=== PATIENT | male | born 1935 | race Two or more races ===

== ENCOUNTER 2017-01-07 14:06 | Inpatient (IN) | payer MEDICARE, OTHER ==
[~2017-01-07] VITALS: Ht 175.3 cm; Wt 77.1 kg
[2017-01-07 14:20] VITALS: BP 164/70
[2017-01-07] MEDS ORDERED: Albuterol ud Inhalation HHN ONE (14:30)
[2017-01-07] MEDS ORDERED: Ipratropium 0.02% Inh Soln 2.5ml UD HHN ONE (14:30)
[2017-01-07 15:18] LABS: MEAN CORPUSCULAR HEMOGLOBIN 29.4 PG (27.0-31.0); MEAN CORPUSCULAR HGB CONC 33.3 G/DL (32.0-36.0); MEAN CORPUSCULAR VOLUME 88 FL (80-99); MEAN PLATELET VOLUME 7.1 FL (6.5-10.1); PLATELET COUNT 221 K/UL (150-450); RED BLOOD COUNT 3.29 M/UL (4.70-6.10); RED CELL DISTRIBUTION WIDTH 12.4 % (11.6-14.8); WHITE BLOOD COUNT 18.7 K/UL (4.8-10.8)
[2017-01-07] MEDS ORDERED: PROSCAR5 MG ORAL ×2 (15:20→17:21)
[2017-01-07] MEDS ORDERED: DOCUSATE SODIU250 MG ORAL (15:20)
[2017-01-07] MEDS ORDERED: JANUVIA50 MG ORAL (15:20)
[2017-01-07] MEDS ORDERED: LISINOPRIL5 MG ORAL (15:20)
[2017-01-07] MEDS ORDERED: CARVEDILOL3.125 MG ORAL (15:20)
[2017-01-07] MEDS ORDERED: GLUCOPHAGE850 MG ORAL (15:20)
[2017-01-07] MEDS ORDERED: NOVOLOG100 UNIT/3 SUBQ ×2 (15:20→17:17)
[2017-01-07] MEDS ORDERED: METFORMIN HCL850 M1 ORAL (15:20)
[2017-01-07] MEDS ORDERED: FERROUS SULFAT325 MG ORAL ×2 (15:20→17:13)
[2017-01-07] MEDS ORDERED: TRAZODONE HCL50 MG ORAL (15:20)
[2017-01-07] MEDS ORDERED: PROTONIX20 MG ORAL (15:20)
[2017-01-07] MEDS ORDERED: TAMSULOSIN HCL0.4 MG ORAL ×2 (15:20→17:15)
[2017-01-07] MEDS ORDERED: ZOLPIDEM TARTRAT5 MG ORAL ×2 (15:20→17:22)
[2017-01-07] MEDS ORDERED: ATORVASTATIN CA10 MG ORAL (15:20)
[2017-01-07 15:25] LABS: ALANINE AMINOTRANSFERASE 16 U/L (3-41); ALBUMIN/GLOBULIN RATIO 0.7 (1.0-2.7); ANION GAP 20 (5-15); ASPARTATE AMINO TRANSFERASE 37 U/L (5-40); CALCIUM 8.7 mg/dL (8.6-10.2); CARBON DIOXIDE 19 mEQ/L (20-30); CHLORIDE 96 mEQ/L (98-107); CREATININE 1.8 mg/dL (0.7-1.2); HEMOLYSIS 2; POTASSIUM 5.7 mEQ/L (3.4-4.9); SODIUM 135 mEQ/L (135-145); TOTAL PROTEIN 7.1 g/dL (6.6-8.7)
[2017-01-07] MEDS ORDERED: Azithromycin 500 MG in NS 275 ML IV ONE (15:30)
[2017-01-07] MEDS ORDERED: Cefepime HCl 1 GM in NS 55 ML IV ONE (15:30)
[2017-01-07 15:31] LABS: REFLEX LACTIC ACID YES OR NO YES
[2017-01-07 15:32] LABS: TROPONIN I 2.97 ng/mL (<=0.30)
[2017-01-07] MEDS ORDERED: Azithromycin Inj IV ONE (15:34)
[2017-01-07] MEDS ORDERED: Cefepime 1gm vial ONE (15:34)
[2017-01-07 15:35] LABS: CKMB 11.2 ng/mL (< 6.7)
[2017-01-07] MEDS ORDERED: Calcium Gluconate 1gm/10ml vial IVP ONE (15:45)
[2017-01-07] MEDS ORDERED: Sodium Polystyrene Sulfonate 15gm Powder ORAL ONE (15:45)
[2017-01-07] MEDS ORDERED: Heparin 25,000u/D5W 500ml 500 ML IV SCH ×3 (16:00→20:45)
[2017-01-07] MEDS ORDERED: Heparin 5000 units/ml inj IV ONE ×2 (16:00→20:44)
[2017-01-07 16:28] VITALS: BP 111/55
[2017-01-07 16:34] LABS: ANISOCYTOSIS 1+; BAND NEUTROPHILS % (MANUAL) 16 % (0-8); BASOPHILS % (MANUAL) 0 % (0-2); EOSINOPHILS % (MANUAL) 0 % (0-3); HYPOCHROMASIA 1+; LYMPHOCYTES % (MANUAL) 13 % (20-45); NEUTROPHILS % (MANUAL) 64 % (45-75); PLATELET ESTIMATE ADEQUATE; PLATELET MORPHOLOGY NORMAL; TOTAL CELLS COUNTED 100
[2017-01-07 16:46] LABS: INR 1.2 (0.9-1.1); PROTHROMBIN TIME 12.7 SEC (9.30-11.50)
--- NOTE | 2017-01-07 16:59 | Emergency Room Report ---
History of Present Illness General Chief Complaint: Dyspnea/Respdistress Source: Medical Record Present Illness HPI 81-year-old male to ED for evaluation. patient resides in [facility] and per nursing staff patient is having congestive symptoms and fever times one day. Patient febrile as per rectal temperature. Patient also has congestive symptoms. Patient has dementia and is unable to provide any additional history at this time. Upon arrival patient showing no signs of distress. No reported chest pain. No reported nausea or vomiting. No other aggravating or relieving factors. No other associated symptoms Allergies: Coded Allergies: No Known Allergies (Unverified , 01/07/17) Patient History Past Medical History: CAD Past Surgical History: none, pacemaker Pertinent Family History: none Social History: Denies: alcohol use, drug use, smoking Immunizations: UTD Reviewed Nursing Documentation: PMH: Agreed, PSxH: Agreed Nursing Documentation-PMH Hx Cardiac Problems: Yes - Atherosclerotic heart Ds. of qawalangin coronary Hx Hypertension: Yes - Anemia Hx Pacemaker: Yes Hx Diabetes: Yes Review of Systems All Other Systems: negative except mentioned in HPI Physical Exam Vital Signs Date Time Temp Pulse Resp B/P Pulse Ox O2 Delivery O2 Flow Rate FiO2 01/07/17 13:50 98.8 98 20 108/65 90 Room Air 01/07/17 14:41 21 Sp02 EP Interpretation: reviewed, normal General Appearance: non-toxic, other - dementia\ Head: normocephalic Eyes: bilateral eye PERRL, bilateral eye normal inspection ENT: normal ENT inspection Neck: normal inspection Respiratory: crackles Cardiovascular #1: regular rate, rhythm, no edema Gastrointestinal: normal bowel sounds, non tender, soft, non-distended, no guarding, no rebound Rectal: deferred Genitourinary: no CVA tenderness Musculoskeletal: normal inspection Neurologic: other - dementiia Psychiatric: other - dementia Skin: normal inspection Lymphatic: normal inspection Procedures Critical Care Time Critical Care Time i. I feel this is a highly complex case requiring extensive working including EKG/Rhythm strip, Xray/CT/US, Blood/urine lab work, repeat exams while in ED, and administration of strong opiates/narcotics for pain control, admission to hospital or close patient follow up. Total time: 30 min bedside evaluation and treatment excludes procedures (EKG). Reason for critical care: hyperkalemia, severe sepsis, elevated troponin Possible complications: hypotension, hypertension, [place], shock, arrhythmias, metabolic acidosis, end organ damage, respiratory failure. Interventions: Labs IV fluids EKG chest x-ray. Insulin/D50. calcium. Kayexelate. Aspirin. Abx. Heparin bolus/drip Course: She brought in for fever, congestive symptoms. Elevated WBC. Lactic 4.5. Potassium elevated. ARF. Troponin elevated. EKG shows peak T waves but no signs of ST elevation. Chest x-ray shows bilateral congestive/infiltrate. Given IV fluids. Given antibiotics. Given aspirin. Given heparin drip and bolus. Given calcium, insulin, D50 and Kayexalate. Consultations: nursing staff, EMS, family Performed by: Dr Toth Tolerated well condition = critical j. because of unstable vital signs this patient had a condition that could potentially threaten life or limb. I feel this is a critical patient who required my full attention while patient was considered critical. Total Critical Care Time excluding procedures was greater than 35 minutes Medical Decision Making Diagnostic Impression: Primary Impression: NSTEMI (non-ST elevated myocardial infarction) Additional Impressions: ARF (acute renal failure) Qualified Codes: N17.9 - Acute kidney failure, unspecified Hyperkalemia, diminished renal excretion Severe sepsis Pneumonia Qualified Codes: J18.9 - Pneumonia, unspecified organism ER Course Hospital Course 81-year-old male presents ED for evaluation of fever and congestion times one day Differential diagnoses include: PTX, CHF, pneumonia, sepsis Clinical course Patient placed on stretcher after initial history and physical I ordered labs, nebulizer treatment, EKG, chest x-ray, IV fluids labs reviewed- noted leukocytosis, lactic acid 4.5. Potassium 5.7. Cr elevated. Troponins 2.97 EKG- peaked Twaves in lateral leads. no ST elevations Chest x-ray- bilateral infiltrates Given calcium. Given insulin D50 and Kayexalate. Given 30 mL per KG fluid bolus. Given antibiotics. Given aspirin. Given heparin bolus and started on heparin drip Case discussed with Dr. Ojeda and he agreed to accept the patient to his service for further care and support. Dr Jain consulted for cardiology I. I feel this is a highly complex case requiring extensive working including EKG/Rhythm strip, Xray/CT/US, Blood/urine lab work, repeat exams while in ED, and administration of strong opiates/narcotics for pain control, admission to hospital or close patient follow up. Diagnosis - NSTEMI, ARF, hyperkalemia, severe sepsis, pneumonia admitted to [facility] in critical condition Labs Test 01/07/17 14:20 01/07/17 16:15 White Blood Count 18.7 K/UL (4.8-10.8) Red Blood Count 3.29 M/UL (4.70-6.10) Hemoglobin 9.7 G/DL (14.2-18.0) Hematocrit 29.0 % (42.0-52.0) Mean Corpuscular Volume 88 FL (80-99) Mean Corpuscular Hemoglobin 29.4 PG (27.0-31.0) Mean Corpuscular Hemoglobin Concent 33.3 G/DL (32.0-36.0) Red Cell Distribution Width 12.4 % (11.6-14.8) Platelet Count 221 K/UL (150-450) Mean Platelet Volume 7.1 FL (6.5-10.1) Neutrophils (%) (Auto) % (45.0-75.0) Lymphocytes (%) (Auto) % (20.0-45.0) Monocytes (%) (Auto) % (1.0-10.0) Eosinophils (%) (Auto) % (0.0-3.0) Basophils (%) (Auto) % (0.0-2.0) Differential Total Cells Counted 100 Neutrophils % (Manual) 64 % (45-75) Lymphocytes % (Manual) 13 % (20-45) Monocytes % (Manual) 7 % (1-10) Eosinophils % (Manual) 0 % (0-3) Basophils % (Manual) 0 % (0-2) Band Neutrophils 16 % (0-8) Platelet Estimate Adequate Platelet Morphology Normal Hypochromasia 1+ Anisocytosis 1+ Prothrombin Time 12.7 SEC (9.30-11.50) Prothromb Time International Ratio 1.2 (0.9-1.1) Activated Partial Thromboplast Time 27 SEC (23-33) Sodium Level 135 mEQ/L (135-145) Potassium Level 5.7 mEQ/L (3.4-4.9) Chloride Level 96 mEQ/L (98-107) Carbon Dioxide Level 19 mEQ/L (20-30) Anion Gap 20 (5-15) Blood Urea Nitrogen 39 mg/dL (7-23) Creatinine 1.8 mg/dL (0.7-1.2) Estimat Glomerular Filtration Rate mL/min (>60) Glucose Level 195 mg/dL (74-106) Lactic Acid Level 4.50 mmol/L (0.66-2.22) Calcium Level 8.7 mg/dL (8.6-10.2) Total Bilirubin 0.6 mg/dL (0.0-1.2) Aspartate Amino Transf (AST/SGOT) 37 U/L (5-40) Alanine Aminotransferase (ALT/SGPT) 16 U/L (3-41) Alkaline Phosphatase 48 U/L (40-129) Total Creatine Kinase 468 U/L (38-174) Creatine Kinase MB 11.2 ng/mL (< 6.7) Creatine Kinase MB Relative Index 2.3 Troponin I 2.97 ng/mL (<=0.30) Pro-B-Type Natriuretic Peptide 6171 pg/mL (0-450) Total Protein 7.1 g/dL (6.6-8.7) Albumin 3.1 g/dL (3.5-5.2) Globulin 4.0 g/dL Albumin/Globulin Ratio 0.7 (1.0-2.7) EKG Diagnostic Results Rate: normal Rhythm: NSR ST Segments: other - peaked twaves ASA given to the pt in ED: Yes Rhythm Strip Diag. Results EP Interpretation: yes Rhythm: NSR, no PVC's, no ectopy Chest X-Ray Diagnostic Results EP Interpretation: No Findings: no pneumothorax, no acute cardiopulmonary disease, other - bilateral congestion/infiltrates. pacemaker Number of Views: 1 Last Vital Signs Date Time Temp Pulse Resp B/P Pulse Ox O2 Delivery O2 Flow Rate FiO2 01/07/17 16:28 106 22 111/55 96 Room Air 01/07/17 14:55 21 01/07/17 14:20 101.1 Status: improved Disposition: ADMITTED INPATIENT Condition: Critical Referrals: REJI OJEDA (PCP) DIONICIO TOTH M.D. January 07, 2017 16:59
[2017-01-07 18:00] VITALS: BP 103/57
[2017-01-07 20:00] VITALS: BP 96/58
[2017-01-07] MEDS: DuoNeb 0.5-3(2.5)mg/3ml neb HHN SCH (20:29)
[2017-01-07] MEDS: Heparin 25,000u/D5W 500ml 500 ML IV SCH (20:44)
[2017-01-07] MEDS: Carvedilol 6.25mg Tab ORAL SCH (21:00)
[2017-01-07] MEDS ORDERED: Heparin 5000 units/ml inj SUBQ SCH (21:00)
[2017-01-07] MEDS: Tamsulosin 0.4mg cap ORAL SCH (21:39)
[2017-01-07] MEDS: NovoLOG Insulin Flexpen SUBQ SCH (21:42)
--- NOTE | 2017-01-07 21:49 | Consultation ---
DATE OF CONSULTATION: 01/07/2017 CARDIOLOGY CONSULTATION REQUESTING PHYSICIAN: Jona Guerra M.D. REASON FOR CONSULTATION: Elevated troponin level. HISTORY OF PRESENT ILLNESS: This is a 81-year-old male, resides at a longterm facility. He was noted to be febrile and have signs of congestion prompting transfer to this emergency room by paramedics. The patient is unable to give any additional data. He has underlying dementia. Records are reviewed. There were no reports of chest pain. He has been congested. He has not had any aggravating factors, but has had fevers. In the emergency room, the patient was noted to have an elevated troponin level and signs of acute pulmonary infection. He was started on intravenous anticoagulants, oral anti-platelet and antimicrobial. PAST MEDICAL HISTORY: 1. Permanent pacemaker. 2. Prostatic hypertrophy. 3. Coronary artery disease. 4. Hypertensive heart disease. 5. Cerebrovascular disease with dementia. 6. Peptic ulcer disease. 7. Insulin-requiring diabetes mellitus. 8. Chronic kidney disease. 9. Anemia of chronic kidney disease. ALLERGIES: None known. MEDICATIONS: Prior to admission, reviewed and reconciled. SOCIAL HISTORY: No record of smoking, alcohol, or substance abuse. FAMILY HISTORY: Unknown. REVIEW OF SYSTEMS: Not obtainable from patient. Pertinent data from records as outlined above. PHYSICAL EXAMINATION: GENERAL: He is awake and alert. He is in mild respiratory distress. He is unable to give any reliable information. VITAL SIGNS: Blood pressure 108/65, pulse 98, respirations 20, and afebrile. HEENT: Temporal wasting. Pale conjunctivae. Oropharynx is clear. Mucous membranes dry. NECK: Supple. Accessory muscle use noted. LUNGS: With coarse breath sounds and rhonchi. Rales at the bases. CARDIAC: Regular rhythm and rate. Normal S1, paradoxically split S2. A 1/6 systolic murmur at apex. ABDOMEN: Soft and nontender. No guarding or rebound. EXTREMITIES: No clubbing, cyanosis, or edema. NEUROLOGIC: Reveals symmetric strength. Moderate to severe cognitive impairment. LABORATORY AND DIAGNOSTIC DATA: Chest x-ray reveals bilateral basilar infiltrates. EKG reveals sinus rhythm with T-wave peaking in the lateral leads. Lactic acid level was elevated to 4.5, repeat is 6.5. Troponin is 2.97. Sodium 135, potassium 5.7, bicarbonate 19, BUN 39, creatinine 1.8, and glucose 195. Pro-natriuretic peptide is 6171. Albumin is 3.1. White count 18.7 and hemoglobin 9.7. IMPRESSION: 1. Healthcare-acquired pneumonia. 2. Acute myocardial infarction. 3. Hyperkalemia. 4. Acute respiratory insufficiency. 5. Acute renal failure. 6. Anemia of chronic kidney disease. 7. Insulin-requiring diabetes with hyperglycemia. 8. Acute diastolic congestive heart failure. 9. Mild protein-calorie malnutrition. 10. Lactic acidosis. 11. Sepsis. 12. Leukocytosis. 13. Permanent pacemaker with underlying conduction system disease of the heart. PLAN: 1. Cardiac monitoring. 2. Saline hydration. 3. Following dose of Kayexalate. 4. Inhaled bronchodilators. 5. Broad-spectrum antibiotics. 6. Oral aspirin. 7. Check lipid panel. 8. Continue anti-lipid therapy. 9. Advance beta-blockade. 10. DVT prophylaxis. 11. Dosing of heparin. 12. Echocardiogram. 13. Pacemaker interrogation to follow. Stanislav Jain M.D. DR: SANDEEP JOB#: [id number] CC: DANIELA
[2017-01-07] MEDS ORDERED: Vancomycin 1250mg in D5W 275ml IVPB ONE (22:00)
[2017-01-08] VITALS: BP 117/61
[2017-01-08] MEDS: DuoNeb 0.5-3(2.5)mg/3ml neb HHN SCH ×4 (01:23→19:49)
[2017-01-08 03:46] LABS: BASOPHILS % (AUTO) 0.3 % (0.0-2.0); EOSINOPHILS % (AUTO) 0.1 % (0.0-3.0); LYMPHOCYTES % (AUTO) 15.9 % (20.0-45.0); MEAN CORPUSCULAR HEMOGLOBIN 30.5 PG (27.0-31.0); MEAN CORPUSCULAR HGB CONC 34.7 G/DL (32.0-36.0); MEAN CORPUSCULAR VOLUME 88 FL (80-99); MONOCYTES % (AUTO) 4.1 % (1.0-10.0); NEUTROPHILS % (AUTO) 79.7 % (45.0-75.0); PLATELET COUNT 177 K/UL (150-450); RED BLOOD COUNT 2.76 M/UL (4.70-6.10); RED CELL DISTRIBUTION WIDTH 12.5 % (11.6-14.8); WHITE BLOOD COUNT 13.6 K/UL (4.8-10.8)
[2017-01-08 04:00] VITALS: BP 119/69
[2017-01-08 05:12] LABS: ALANINE AMINOTRANSFERASE 17 U/L (3-41); ALBUMIN/GLOBULIN RATIO 0.7 (1.0-2.7); ANION GAP 16 (5-15); ASPARTATE AMINO TRANSFERASE 41 U/L (5-40); CALCIUM 8.3 mg/dL (8.6-10.2); CARBON DIOXIDE 21 mEQ/L (20-30); CHLORIDE 99 mEQ/L (98-107); CHOLESTEROL 56 mg/dL (< 200); CHOLESTEROL/HDL RATIO 1.4 (3.3-4.4); CREATININE 1.7 mg/dL (0.7-1.2); HEMOLYSIS 4; LDL CHOLESTEROL (CALC.) 11 mg/dL (60-99); POTASSIUM 4.4 mEQ/L (3.4-4.9); SODIUM 136 mEQ/L (135-145); TOTAL PROTEIN 6.1 g/dL (6.6-8.7)
[2017-01-08 05:17] LABS: THYROID STIMULATING HORMONE 0.795 uIU/mL (0.300-4.500)
[2017-01-08 05:22] LABS: TROPONIN I 3.26 ng/mL (<=0.30)
[2017-01-08] MEDS ORDERED: NovoLOG Insulin Flexpen SUBQ SCH (06:30)
[2017-01-08] MEDS: NovoLOG Insulin Flexpen SUBQ SCH ×4 (06:32→21:56)
[2017-01-08 08:00] VITALS: BP 114/71
--- NOTE | 2017-01-08 08:39 | Diagnostic Imaging Report ---
Indication: SOB Technique: One view of the chest Comparison: none Findings: There is bilateral interstitial and airspace disease, left greater than right, which is diffuse. The pleural spaces are clear. The heart size is upper limits normal. There is a left chest bifocal pacemaker Impression: Bilateral interstitial and alveolar infiltrates versus edema. Correlate with clinical findings Other findings as noted
[2017-01-08] MEDS: Aspirin Baby 81mg ORAL SCH (09:38)
[2017-01-08] MEDS: Carvedilol 6.25mg Tab ORAL SCH (09:39)
[2017-01-08 12:04] VITALS: BP 108/50
[2017-01-08 12:47] LABS: TROPONIN I 1.51 ng/mL (<=0.30)
--- NOTE | 2017-01-08 12:48 | Consultation ---
DATE OF CONSULTATION: 01/08/2017 PULMONARY CONSULTATION CONSULTING PHYSICIAN: Jona Guerra M.D. REASON FOR CONSULTATION: Pneumonia. HISTORY OF PRESENT ILLNESS: This is a 81-year-old male, resides at a residential facility. The patient is noted to be febrile, worsening congestion. The patient was brought into the emergency room and had a workup done, which also revealed an elevated troponin. Care discussed with the ER physician as well as with Dr. Carlos. The patient now admitted to [facility]. The patient seen and evaluated by Cardiology. The patient without significant distress. The patient has been congested, overall not improving. The patient was transferred for admission evaluation. The patient also started on cardiac management. The patient is a poor historian overall, events are fairly acute in nature and therefore the patient was transferred for evaluation and intervention. PAST MEDICAL HISTORY: Notable for pacemaker, BPH, CAD, hypertension, hypertensive heart disease, peptic ulcer disease, insulin-dependent diabetes, chronic kidney disease, anemia, and possible underlying history of COPD. MEDICATIONS: Reviewed. ALLERGIES: Reviewed. SOCIAL HISTORY: Nonsmoker and nondrinker. The patient is a shelter patient. FAMILY HISTORY: Noncontributory. Not available. REVIEW OF SYSTEMS: Difficult to obtain. PHYSICAL EXAMINATION: GENERAL: The patient is awake, male, mild distress, some congestion, not a reliable historian. VITAL SIGNS: Saturation 99% on room air, respirations 20, temperature 98.1 degrees, and blood pressure 119/69. HEENT: Temporal wasting. Oropharynx is moist. Gag present. NECK: Supple. Carotids 2+. LUNGS: Coarse breath sounds and rhonchi. No wheezes. CARDIAC: S1 and S2. Regular rate and rhythm. Soft at the parasternal border. No rubs or gallops. ABDOMEN: Soft and nontender. No distention. EXTREMITIES: No cyanosis. No clubbing. No edema. NEUROLOGIC: Grossly nonfocal. LABORATORY AND DIAGNOSTIC DATA: White count 18.7, currently 13.6, hemoglobin 8.4, and hematocrit 24.2. The remainder of the labs reviewed in detail. Chemistries, BUN 43, creatinine 1.7. Troponin initially 2.97, now 3.26. BNP 27723. Albumin is 2.6. IMPRESSION: 1. Acute myocardial infarction. 2. Elevated troponin. 3. Elevated natriuretic peptide. 4. Severe protein-calorie malnutrition. 5. Chronic renal failure. 6. Anemia. 7. Leukocytosis. 8. Pneumonia. 9. Respiratory congestion. 10. Chronic encephalopathy. RECOMMENDATIONS: 1. Cardiology evaluation noted. 2. IV antibiotics empirically for shelter related infection. 3. Respiratory care. 4. Nebulized therapy. 5. Oxygen therapy. 6. Monitor renal function. 7. Monitor labs. 8. Consider transfusion and assess clinically for further changes. 9. Consider Epogen. 10. Monitor and recommend further pending evaluation. Jona Guerra M.D. DR: Archana JOB#: [id number] CC:
[2017-01-08] MEDS: Cefepime HCl 1 GM in D5W 55 ML IVPB SCH (15:18)
[2017-01-08] MEDS: Heparin 25,000u/D5W 500ml 500 ML IV SCH (15:23)
[2017-01-08 16:24] VITALS: BP 140/73
--- NOTE | 2017-01-08 16:49 | Progress Note ---
DATE: 01/08/2017 SUBJECTIVE: The patient is without complaints. He wants to get out of bed and move. He denies chest pain or shortness of breath. OBJECTIVE: VITAL SIGNS: Blood pressure 114/71, pulse 106, respirations 18, no fever. RESPIRATORY: A few rales. NECK: Jugular venous pressure elevated. HEART: Regular rhythm and rate. Normal S1 and S2. There is a 1/6 systolic apical murmur. ABDOMEN: Soft. Extremities with trace edema. LABORATORY DATA: White count 13.6 and hemoglobin 8.4. Potassium 4.4, BUN 43, creatinine 1.7, troponin 3.26, pro-brain natriuretic peptide 12,000, and albumin 2.6. Cholesterol total is only 56. TSH 0.79. IMPRESSION: 1. Acute myocardial infarction. 2. Acute on chronic diastolic congestive heart failure. 3. Lactic acidosis. 4. Permanent pacemaker. 5. Healthcare-acquired pneumonia. 6. Acute renal failure. 7. Hyperkalemia, resolved. PLAN: 1. Advance beta-ann. 2. Discontinue IV fluids. 3. Continue anti-platelet therapy. 4. Review echocardiogram. 5. Broad-spectrum antibiotic. Remains critical and guarded. Stanislav Jain M.D. DR: SANDEEP JOB#: [id number] CC:
--- NOTE | 2017-01-08 19:58 | Consultation ---
DATE OF CONSULTATION: 01/08/2017 PRIMARY ATTENDING PHYSICIAN: Jona Guerra M.D. REASON FOR CONSULT: Sepsis and pneumonia. HISTORY OF PRESENT ILLNESS: The patient is a 81-year-old man who is a long term resident admitted yesterday because of fever and congestion. The patient had a fever of 101.1 in the hospital and leukocytosis of 18,700. He seems to be confused and he is a poor historian. He had elevated troponin up to 3.26, elevated BNP, lactic acidosis, and has renal failure. PAST MEDICAL HISTORY: He has diabetes mellitus, on insulin; anemia; history of pacemaker placement; BPH; coronary artery disease; and dementia. SOCIAL HISTORY: senior care resident. No history of alcohol or drug abuse or smoking. ALLERGIES: No known drug allergies. MEDICATIONS: Vancomycin, carvedilol, cefepime, aspirin, Proscar, Protonix, atorvastatin, Flomax, insulin, heparin, and DuoNeb inhaler. No other history is obtainable. PHYSICAL EXAMINATION: VITAL SIGNS: Pulse 105, blood pressure 108/50, and temperature 99.5 degrees. T-max 101.1 degrees. GENERAL APPEARANCE: No acute distress. HEAD AND NECK: Pale conjunctivae. No oral lesions. The patient has no teeth. HEART: Regular. There is a pacemaker on the left side of the chest. ABDOMEN: Soft and nontender. EXTREMITIES: No edema. LABORATORY AND DIAGNOSTIC DATA: WBC today is 13.6, hemoglobin 8.4, hematocrit 24.2, and platelets 177,000. Sodium 136, potassium 4.4, chloride 99, bicarbonate 21, BUN 43, and creatinine 1.7. Lactic acid is 6.8. Troponin peak was 3.26. BNP was 12,291. Albumin is 2.6. Chest x-ray showed bilateral interstitial and alveolar infiltrates versus edema. IMPRESSION: 1. Sepsis/ Systemic inflammatory response syndrome with fever and leukocytosis. 2. source of infection may be pneumonia. 3. The patient suffers from non-ST myocardial infarction. 4. Anemia. 5. Acute renal failure. 6. Dementia. 7. Diabetes mellitus, on insulin. RECOMMENDATION: We will continue current medication of vancomycin and cefepime with followup chest x-ray in one to two days. I thank Dr. Guerra for involving me in the care of this patient. Van Warren M.D. DR: RONNY JOB#: [id number] CC: DANIELA
[2017-01-08 20:00] VITALS: BP 144/76
[2017-01-08] MEDS: Carvedilol 12.5mg tab ORAL SCH (21:45)
[2017-01-08] MEDS: Tamsulosin 0.4mg cap ORAL SCH (21:46)
[2017-01-08] MEDS: Vancomycin 1gm in D5W 275ml IVPB SCH (21:54)
--- NOTE | 2017-01-08 23:18 | History and Physical Report ---
DATE OF ADMISSION: 01/07/2017 CHIEF COMPLAINT: Sepsis, acute myocardial infarction, atrial fibrillation with rapid ventricular response, and pneumonia. HISTORY OF PRESENT ILLNESS: Mr. Goins is a 81-year-old male, who resides in a long term facility, who was transferred with complaints of shortness of breath. On evaluation at the emergency room, the patient was noted to have elevated troponin. He also had evidence of pneumonia. He since has developed atrial fibrillation with RVR. Currently, he is without complaints. He remains in atrial fibrillation, but his rate is better controlled. PAST MEDICAL HISTORY: Significant for hypertension, hypertensive heart disease, diabetes, history of ischemic cardiomyopathy, dementia, history of renal insufficiency, and history BPH. CURRENT MEDICATIONS: Reconciled and reviewed. ALLERGIES: None. FAMILY HISTORY: None. SOCIAL HISTORY: Negative for tobacco, ethanol, or drugs. REVIEW OF SYSTEMS: General: No fever or chills. HEENT: No headaches or visual changes. Cardiopulmonary: Positive for chest pain. Positive shortness of breath. Gastrointestinal: No nausea or vomiting. Genitourinary: No urgency or frequency. Musculoskeletal: No joint pain or swelling. Neurologic: No evidence of seizures. PHYSICAL EXAMINATION: VITAL SIGNS: Temperature 99.5 degrees, blood pressure 108/50, pulse 100, and respirations 18. GENERAL: The patient is well-developed male, in apparent distress. He is awake and alert. He answers simple questions appropriately. NECK: Supple. HEART: Regular rate and rhythm. LUNGS: Scattered rhonchi. ABDOMEN: Soft, nontender, and nondistended. EXTREMITIES: Without clubbing, cyanosis, or edema. LABORATORY AND DIAGNOSTIC DATA: Laboratories white count 18,000, hemoglobin 9.7, and hematocrit 29. Troponin 3.26. Creatinine was 1.7. Sodium 136, potassium 4.4. Lactic acid was 6.8, natriuretic peptide level is 1200. Chest x-ray showed bilateral infiltrates. ASSESSMENT: This is a elderly male with complaints of: 1. Shortness of breath secondary to pneumonia. 2. Acute myocardial infarction, problems with atrial fibrillation with rapid ventricular response. 3. Pneumonia. 4. Sepsis. 5. Lactic acidosis. 6. Chronic renal insufficiency. 7. Dementia. 8. Diabetes. PLAN: Intravenous antibiotics, antiplatelet therapy, heparin drip, Cardiology, Pulmonary, and Infectious Disease consultations. We will monitor the patient's chest x-ray. Followup cultures. Check an echo. The patient's status is currently guarded. Rajeev Carlos M.D. DR: Mandie JOB#: [id number] CC:
[2017-01-09] VITALS (7 sets, daily range): BP systolic 90–136; BP diastolic 46–82
[2017-01-09] MEDS: DuoNeb 0.5-3(2.5)mg/3ml neb HHN SCH ×4 (01:40→19:16)
[2017-01-09 05:32] LABS: MEAN CORPUSCULAR HEMOGLOBIN 29.9 PG (27.0-31.0); MEAN CORPUSCULAR HGB CONC 33.8 G/DL (32.0-36.0); MEAN CORPUSCULAR VOLUME 89 FL (80-99); MEAN PLATELET VOLUME 7.3 FL (6.5-10.1); PLATELET COUNT 153 K/UL (150-450); RED BLOOD COUNT 2.59 M/UL (4.70-6.10); RED CELL DISTRIBUTION WIDTH 12.9 % (11.6-14.8); WHITE BLOOD COUNT 12.1 K/UL (4.8-10.8)
[2017-01-09 06:07] LABS: ALANINE AMINOTRANSFERASE 16 U/L (3-41); ALBUMIN/GLOBULIN RATIO 0.7 (1.0-2.7); ANION GAP 18 (5-15); ASPARTATE AMINO TRANSFERASE 23 U/L (5-40); CALCIUM 7.8 mg/dL (8.6-10.2); CARBON DIOXIDE 21 mEQ/L (20-30); CHLORIDE 101 mEQ/L (98-107); CREATININE 1.6 mg/dL (0.7-1.2); HEMOLYSIS 0; POTASSIUM 3.7 mEQ/L (3.4-4.9); SODIUM 140 mEQ/L (135-145); TOTAL PROTEIN 6.2 g/dL (6.6-8.7)
[2017-01-09] MEDS: NovoLOG Insulin Flexpen SUBQ SCH ×4 (06:31→20:50)
[2017-01-09] MEDS ORDERED: Heparin 5000 units/ml inj IV ONE (06:45)
[2017-01-09] MEDS: Heparin 25,000u/D5W 500ml 500 ML IV SCH ×2 (07:40→12:21)
--- NOTE | 2017-01-09 08:26 | Pulmonology Progress Note ---
Assessment/Plan Assessment/Plan IMPRESSION: 1. Acute myocardial infarction. 2. Elevated troponin. 3. Elevated natriuretic peptide. 4. Severe protein-calorie malnutrition. 5. Chronic renal failure. 6. Anemia. 7. Leukocytosis. 8. Pneumonia. 9. Respiratory congestion. 10. Chronic encephalopathy. PLAN care noted and reviewed IV antibiotics ID noted monitor troponins supportive care monitor labs nutrition impression, plan, and exam edited and reviewed in detail care discussed with RN Subjective ROS Limited/Unobtainable: Yes Allergies: Coded Allergies: No Known Allergies (Unverified , 01/07/17) Subjective care noted some congestion troponin better Objective Last 24 Hour Vital Signs Date Time Temp Pulse Resp B/P Pulse Ox O2 Delivery O2 Flow Rate FiO2 01/09/17 07:42 Nasal Cannula 01/09/17 07:42 Nasal Cannula 3.0 32 01/09/17 07:42 98 18 96 Nasal Cannula 3.0 32 01/09/17 07:42 96 Nasal Cannula 3.0 32 01/09/17 04:00 98.5 111 18 114/77 97 Nasal Cannula 2.0 01/09/17 04:00 99 01/09/17 01:48 98 20 98 Nasal Cannula 2.0 28 01/09/17 01:38 94 20 97 Nasal Cannula 3.0 32 01/09/17 00:00 91 01/09/17 00:00 98.9 86 18 103/56 97 Nasal Cannula 2.0 01/08/17 22:45 100.2 01/08/17 21:45 108 144/76 01/08/17 20:27 108 01/08/17 20:10 Nasal Cannula 3.0 32 01/08/17 20:10 117 22 94 Nasal Cannula 3.0 32 01/08/17 20:09 94 Nasal Cannula 3.0 32 01/08/17 20:00 101.8 114 20 144/76 98 Nasal Cannula 2.0 01/08/17 19:52 111 22 88 Room Air 21 01/08/17 16:24 98.2 110 18 140/73 94 Room Air 01/08/17 16:00 109 01/08/17 13:33 95 Nasal Cannula 2.0 01/08/17 13:33 Nasal Cannula 2.0 01/08/17 13:31 105 20 95 Nasal Cannula 2.0 01/08/17 13:20 109 20 92 Room Air 01/08/17 12:04 99.5 100 18 108/50 95 Room Air 01/08/17 12:00 110 01/08/17 09:39 114/71 Intake and Output 01/08/17 01/09/17 19:00 07:00 Intake Total 883.12 ml 703.5978 ml Balance 883.12 ml 703.5978 ml Intake Oral 550 ml IV Total 333.12 ml 703.5978 ml # Voids 5 1 # Bowel Movements 4 Objective GENERAL: The patient is awake, male, some persistent congestion, HEENT: Temporal wasting. Oropharynx is moist. Gag present. NECK: Supple. Carotids 2+. LUNGS: Coarse breath sounds and rhonchi. No wheezes. minimal change CARDIAC: S1 and S2. Regular rate and rhythm. Soft at the parasternal border. No rubs or gallops. ABDOMEN: Soft and nontender. No distention. EXTREMITIES: No cyanosis. No clubbing. No edema. NEUROLOGIC: Grossly nonfocal. Microbiology Date/Time Source Procedure Growth Status 01/07/17 14:55 Blood Blood Culture - Preliminary NO GROWTH AFTER 24 HOURS Resulted 01/07/17 14:20 Blood Blood Culture - Preliminary NO GROWTH AFTER 24 HOURS Resulted Laboratory Tests 01/08/17 11:30: Troponin I 1.51*H 01/09/17 04:00: White Blood Count 12.1H, Red Blood Count 2.59L, Hemoglobin 7.7L, Hematocrit 22.9L, Mean Corpuscular Volume 89, Mean Corpuscular Hemoglobin 29.9, Mean Corpuscular Hemoglobin Concent 33.8, Red Cell Distribution Width 12.9, Platelet Count 153, Mean Platelet Volume 7.3, Neutrophils (%) (Auto) , Lymphocytes (%) ( Auto) , Monocytes (%) (Auto) , Eosinophils (%) (Auto) , Basophils (%) (Auto) , Neutrophils % (Manual) [Pending], Lymphocytes % (Manual) [Pending], Platelet Estimate [Pending], Platelet Morphology [Pending], Activated Partial Thromboplast Time 62H, Sodium Level 140, Potassium Level 3.7, Chloride Level 101 , Carbon Dioxide Level 21, Anion Gap 18H, Blood Urea Nitrogen 41H, Creatinine 1.6H, Estimat Glomerular Filtration Rate , Glucose Level 159H, Lactic Acid Level 1.10, Calcium Level 7.8L, Total Bilirubin 0.5, Aspartate Amino Transf (AST /SGOT) 23, Alanine Aminotransferase (ALT/SGPT) 16, Alkaline Phosphatase 68, Total Protein 6.2L, Albumin 2.7L, Globulin 3.5, Albumin/Globulin Ratio 0.7L Current Medications Medications (Trade) Dose Ordered Sig/Subhash Route PRN Reason Start Time Stop Time Status Last Admin Dose Admin Acetaminophen 650 mg 650 mg Q6H PRN ORAL Mild Pain/Temp > 100.5 01/08/17 20:45 02/07/17 20:44 01/08/17 21:46 Albuterol/ Ipratropium 3 ml 3 ml Q6HRT HHN 01/07/17 19:00 01/12/17 18:59 01/09/17 01:40 Aspirin (ASA) 81 mg DAILY ORAL 01/08/17 09:00 02/07/17 08:59 01/08/17 09:38 Atorvastatin Calcium (Lipitor) 10 mg BEDTIME ORAL 01/07/17 21:00 02/06/17 20:59 01/08/17 21:46 Carvedilol (Coreg) 12.5 mg EVERY 12 HOURS ORAL 01/08/17 21:00 02/07/17 20:59 01/08/17 21:45 Cefepime HCl/ Dextrose (Maxipime/D5W) 55 ml @ 110 mls/hr Q24H IVPB 01/08/17 15:30 01/15/17 15:29 01/08/17 15:18 Dextrose (Dextrose 50%) STAT PRN IV Hypoglycemia 01/07/17 18:15 02/06/17 18:14 Finasteride (Proscar) 5 mg DAILY ORAL 01/08/17 09:00 02/07/17 08:59 01/08/17 09:00 Heparin Sodium/ Dextrose (Heparin) 500 ml @ 30.844 mls/ hr adjust per protocol IV 01/09/17 06:42 02/06/17 20:44 01/09/17 07:40 Insulin Aspart (NovoLOG) BEFORE MEALS AND HS SUBQ 01/07/17 21:00 02/06/17 20:59 01/09/17 06:31 Pantoprazole (Protonix) 40 mg DAILY ORAL 01/08/17 09:00 02/07/17 08:59 01/08/17 10:45 Tamsulosin HCl (Flomax) 0.4 mg BEDTIME ORAL 01/07/17 21:00 02/06/17 20:59 01/08/17 21:46 Vancomycin HCl 1 ea 1 ea DAILY PRN MISC Per rx protocol 01/07/17 18:30 02/06/17 18:29 Vancomycin HCl/ Dextrose (Vancomycin/D5W) 275 ml @ 183.708 mls/hr Q24H IVPB 01/08/17 22:00 01/13/17 21:59 01/08/17 21:54 REJI OJEDA January 09, 2017 08:26
[2017-01-09] MEDS: Aspirin Baby 81mg ORAL SCH (08:30)
[2017-01-09] MEDS: Carvedilol 12.5mg tab ORAL SCH ×2 (08:36→20:46)
[2017-01-09 08:54] LABS: MEAN CORPUSCULAR HGB CONC 34.1 G/DL (32.0-36.0); MEAN CORPUSCULAR VOLUME 88 FL (80-99); MEAN PLATELET VOLUME 7.2 FL (6.5-10.1); PLATELET COUNT 145 K/UL (150-450); RED BLOOD COUNT 2.58 M/UL (4.70-6.10); RED CELL DISTRIBUTION WIDTH 13.2 % (11.6-14.8); WHITE BLOOD COUNT 12.9 K/UL (4.8-10.8)
[2017-01-09 11:50] LABS: BAND NEUTROPHILS % (MANUAL) 0 % (0-8); BASOPHILS % (MANUAL) 0 % (0-2); EOSINOPHILS % (MANUAL) 0 % (0-3); HYPOCHROMASIA 1+; LYMPHOCYTES % (MANUAL) 9 % (20-45); NEUTROPHILS % (MANUAL) 89 % (45-75); PLATELET ESTIMATE ADEQUATE; PLATELET MORPHOLOGY NORMAL; TOTAL CELLS COUNTED 100
[2017-01-09 12:08] LABS: BAND NEUTROPHILS % (MANUAL) 1 % (0-8); LYMPHOCYTES % (MANUAL) 12 % (20-45); NEUTROPHILS % (MANUAL) 82 % (45-75); TOTAL CELLS COUNTED 100
[2017-01-09 12:09] LABS: BASOPHILS % (MANUAL) 0 % (0-2); EOSINOPHILS % (MANUAL) 0 % (0-3); HYPOCHROMASIA 1+; PLATELET ESTIMATE DECREASED; PLATELET MORPHOLOGY NORMAL
[2017-01-09 12:39] LABS: TROPONIN I 1.27 ng/mL (<=0.30)
--- NOTE | 2017-01-09 13:03 | Infectious Diseases Prog Note ---
Assessment/Plan Assessment/Plan antibiotics : vancomycin iv, cefepime A 1. pneumonia 2. renal failure 3. dementia 4. fever improving 5. leucocytosis P 1. continue iv cefepime 2. d/c iv vancomycin 3. will follow up cultures Subjective ROS Limited/Unobtainable: Yes Allergies: Coded Allergies: No Known Allergies (Unverified , 01/07/17) Objective Vital Signs Last 24 Hour Vital Signs Date Time Temp Pulse Resp B/P Pulse Ox O2 Delivery O2 Flow Rate FiO2 01/09/17 12:00 98.9 88 18 90/47 93 Nasal Cannula 2.0 01/09/17 08:36 96 136/46 01/09/17 08:00 99.7 96 20 136/46 93 Nasal Cannula 2.0 01/09/17 08:00 103 01/09/17 07:42 Nasal Cannula 01/09/17 07:42 Nasal Cannula 3.0 32 01/09/17 07:42 98 18 96 Nasal Cannula 3.0 32 01/09/17 07:42 96 Nasal Cannula 3.0 32 01/09/17 04:00 98.5 111 18 114/77 97 Nasal Cannula 2.0 01/09/17 04:00 99 01/09/17 01:48 98 20 98 Nasal Cannula 2.0 28 01/09/17 01:38 94 20 97 Nasal Cannula 3.0 32 01/09/17 00:00 91 01/09/17 00:00 98.9 86 18 103/56 97 Nasal Cannula 2.0 01/08/17 22:45 100.2 01/08/17 21:45 108 144/76 01/08/17 20:27 108 01/08/17 20:10 Nasal Cannula 3.0 32 01/08/17 20:10 117 22 94 Nasal Cannula 3.0 32 01/08/17 20:09 94 Nasal Cannula 3.0 32 01/08/17 20:00 101.8 114 20 144/76 98 Nasal Cannula 2.0 01/08/17 19:52 111 22 88 Room Air 21 01/08/17 16:24 98.2 110 18 140/73 94 Room Air 01/08/17 16:00 109 01/08/17 13:33 95 Nasal Cannula 2.0 01/08/17 13:33 Nasal Cannula 2.0 01/08/17 13:31 105 20 95 Nasal Cannula 2.0 01/08/17 13:20 109 20 92 Room Air Height (Feet): 5 Height (Inches): 9.00 Weight (Pounds): 170 Respiratory/Chest: rhonchi - bilaterally Cardiovascular: normal rate, regular rhythm, no gallop/murmur Abdomen: soft, non tender Extremities: no edema Microbiology Date/Time Source Procedure Growth Status 01/07/17 14:55 Blood Blood Culture - Preliminary NO GROWTH AFTER 24 HOURS Resulted 01/07/17 14:20 Blood Blood Culture - Preliminary NO GROWTH AFTER 24 HOURS Resulted 01/07/17 15:15 Nasal Nares MRSA Culture - Final Staphylococcus Aureus - Mrsa Complete 01/07/17 15:15 Rectum VRE Culture - Final NO VANCOMYCIN RESISTANT ENTEROCOCCUS ... Complete Laboratory Tests Test 01/09/17 04:00 01/09/17 08:30 White Blood Count 12.1 K/UL (4.8-10.8) H 12.9 K/UL (4.8-10.8) H Red Blood Count 2.59 M/UL (4.70-6.10) L 2.58 M/UL (4.70-6.10) L Hemoglobin 7.7 G/DL (14.2-18.0) L 7.7 G/DL (14.2-18.0) L Hematocrit 22.9 % (42.0-52.0) L 22.8 % (42.0-52.0) L Mean Corpuscular Volume 89 FL (80-99) 88 FL (80-99) Mean Corpuscular Hemoglobin 29.9 PG (27.0-31.0) 30.0 PG (27.0-31.0) Mean Corpuscular Hemoglobin Concent 33.8 G/DL (32.0-36.0) 34.1 G/DL (32.0-36.0) Red Cell Distribution Width 12.9 % (11.6-14.8) 13.2 % (11.6-14.8) Platelet Count 153 K/UL (150-450) 145 K/UL (150-450) L Mean Platelet Volume 7.3 FL (6.5-10.1) 7.2 FL (6.5-10.1) Neutrophils (%) (Auto) % (45.0-75.0) % (45.0-75.0) Lymphocytes (%) (Auto) % (20.0-45.0) % (20.0-45.0) Monocytes (%) (Auto) % (1.0-10.0) % (1.0-10.0) Eosinophils (%) (Auto) % (0.0-3.0) % (0.0-3.0) Basophils (%) (Auto) % (0.0-2.0) % (0.0-2.0) Differential Total Cells Counted 100 100 Neutrophils % (Manual) 89 % (45-75) H 82 % (45-75) H Lymphocytes % (Manual) 9 % (20-45) L 12 % (20-45) L Monocytes % (Manual) 2 % (1-10) 5 % (1-10) Eosinophils % (Manual) 0 % (0-3) 0 % (0-3) Basophils % (Manual) 0 % (0-2) 0 % (0-2) Band Neutrophils 0 % (0-8) 1 % (0-8) Platelet Estimate Adequate Decreased L Platelet Morphology Normal Normal Hypochromasia 1+ 1+ Activated Partial Thromboplast Time 62 SEC (23-33) H Sodium Level 140 mEQ/L (135-145) Potassium Level 3.7 mEQ/L (3.4-4.9) Chloride Level 101 mEQ/L (98-107) Carbon Dioxide Level 21 mEQ/L (20-30) Anion Gap 18 (5-15) H Blood Urea Nitrogen 41 mg/dL (7-23) H Creatinine 1.6 mg/dL (0.7-1.2) H Estimat Glomerular Filtration Rate mL/min (>60) Glucose Level 159 mg/dL (74-106) H Lactic Acid Level 1.10 mmol/L (0.66-2.22) Calcium Level 7.8 mg/dL (8.6-10.2) L Total Bilirubin 0.5 mg/dL (0.0-1.2) Aspartate Amino Transf (AST/SGOT) 23 U/L (5-40) Alanine Aminotransferase (ALT/SGPT) 16 U/L (3-41) Alkaline Phosphatase 68 U/L (40-129) Troponin I 1.27 ng/mL (<=0.30) *H Total Protein 6.2 g/dL (6.6-8.7) L Albumin 2.7 g/dL (3.5-5.2) L Globulin 3.5 g/dL Albumin/Globulin Ratio 0.7 (1.0-2.7) L VINICIO VAUGHAN January 09, 2017 13:02
[2017-01-09] MEDS: Cefepime HCl 1 GM in D5W 55 ML IVPB SCH (14:57)
[2017-01-09] MEDS ORDERED: Tubing IV Secondary IV ONE (15:31)
[2017-01-09] MEDS ORDERED: NS 275ml ONE (15:31)
[2017-01-09] MEDS ORDERED: Tubing Blood Filter IV ONE (15:31)
[2017-01-09] MEDS: Tamsulosin 0.4mg cap ORAL SCH (20:49)
[2017-01-09] MEDS: Vancomycin 1gm in D5W 275ml IVPB SCH (22:50)
--- NOTE | 2017-01-10 00:28 | Progress Note ---
DATE: 01/09/2017 CARDIOLOGY PROGRESS NOTE SUBJECTIVE: The patient still has some congestion and less distress. He is without chest pain. OBJECTIVE: VITAL SIGNS: Blood pressure 114/77, heart rate 111, respiratory rate 18, and afebrile. T-max is 101.8. Oxygen saturation is 96% on three liters nasal cannula. LUNGS: Reveals bilateral breath sounds with rhonchi. Few rales. HEART: Regular rhythm and rate. Normal S1 and S2 with a fourth heart sound. ABDOMEN: Soft and nontender. EXTREMITIES: With no edema. LABORATORY DATA: Troponin decreased to 1.27. BUN 41, creatinine 1.6, and potassium 3.7. Albumin is 2.7. White count is 12.9, and hemoglobin 7.7. IMPRESSION: 1. Acute myocardial infarction. 2. Severe anemia. 3. Moderate protein-calorie malnutrition. 4. Acute on chronic renal failure. 5. Pneumonia. 6. Cerebrovascular disease with dementia. 7. Secondary sinus tachycardia. PLAN: 1. Antibiotics. 2. Respiratory hygiene. 3. Antiplatelet therapy with aspirin. 4. Anti-lipid therapy. 5. Titrate beta blockers. 6. Monitor volume status. 7. Trend natriuretic peptide assay. 8. Reassess for diuresis. 9. Reassess regimen following packed red blood cell transfusion. Stanislav Jain M.D. DR: SANDEEP JOB#: [id number] CC:
[2017-01-10] MEDS: DuoNeb 0.5-3(2.5)mg/3ml neb HHN SCH ×4 (00:41→19:00)
[2017-01-10 03:55] VITALS: BP 129/75
[2017-01-10 06:24] LABS: MEAN CORPUSCULAR HEMOGLOBIN 29.8 PG (27.0-31.0); MEAN CORPUSCULAR HGB CONC 34.1 G/DL (32.0-36.0); MEAN CORPUSCULAR VOLUME 87 FL (80-99); MEAN PLATELET VOLUME 8.2 FL (6.5-10.1); PLATELET COUNT 152 K/UL (150-450); RED BLOOD COUNT 3.16 M/UL (4.70-6.10); RED CELL DISTRIBUTION WIDTH 13.4 % (11.6-14.8); WHITE BLOOD COUNT 12.9 K/UL (4.8-10.8)
[2017-01-10] MEDS: NovoLOG Insulin Flexpen SUBQ SCH ×4 (06:28→21:24)
[2017-01-10] MEDS: Heparin 25,000u/D5W 500ml 500 ML IV SCH ×3 (06:33→15:51)
[2017-01-10 06:41] LABS: ALANINE AMINOTRANSFERASE 15 U/L (3-41); ALBUMIN/GLOBULIN RATIO 0.6 (1.0-2.7); ANION GAP 18 (5-15); ASPARTATE AMINO TRANSFERASE 18 U/L (5-40); CALCIUM 7.8 mg/dL (8.6-10.2); CARBON DIOXIDE 21 mEQ/L (20-30); CHLORIDE 101 mEQ/L (98-107); CREATININE 1.6 mg/dL (0.7-1.2); HEMOLYSIS 0; MAGNESIUM 1.4 mg/dL (1.7-2.5); POTASSIUM 3.1 mEQ/L (3.4-4.9); SODIUM 140 mEQ/L (135-145); TOTAL PROTEIN 6.6 g/dL (6.6-8.7)
[2017-01-10] MEDS ORDERED: Heparin 5000 units/ml inj IV ONE (06:45)
[2017-01-10 06:53] LABS: TROPONIN I 0.41 ng/mL (<=0.30)
[2017-01-10 08:23] VITALS: BP 124/63
--- NOTE | 2017-01-10 09:06 | Pulmonology Progress Note ---
Assessment/Plan Assessment/Plan IMPRESSION: 1. Acute myocardial infarction. 2. Elevated troponin. 3. Elevated natriuretic peptide. 4. Severe protein-calorie malnutrition. 5. Chronic renal failure. 6. Anemia. 7. Leukocytosis. 8. Pneumonia. 9. Respiratory congestion. 10. Chronic encephalopathy. PLAN care noted and reviewed IV antibiotics ID noted monitor troponins; trending downwards supportive care monitor labs nutrition hope to dc soon impression, plan, and exam edited and reviewed in detail care discussed with RN Subjective ROS Limited/Unobtainable: Yes Allergies: Coded Allergies: No Known Allergies (Unverified , 01/07/17) Subjective care noted some congestion troponin better MRSA nares Objective Last 24 Hour Vital Signs Date Time Temp Pulse Resp B/P Pulse Ox O2 Delivery O2 Flow Rate FiO2 01/10/17 08:23 98.1 75 16 124/63 98 Nasal Cannula 3.0 01/10/17 07:12 Nasal Cannula 01/10/17 07:10 Nasal Cannula 3.0 32 01/10/17 07:10 Nasal Cannula 01/10/17 07:10 96 Nasal Cannula 3.0 32 01/10/17 03:55 97.9 101 16 129/75 96 Nasal Cannula 01/10/17 03:55 101 01/10/17 00:42 Nasal Cannula 01/10/17 00:41 Nasal Cannula 01/10/17 00:00 90 01/09/17 23:52 98.2 80 16 104/82 96 Nasal Cannula 01/09/17 20:46 94 124/63 01/09/17 20:00 98.6 94 15 124/63 99 Nasal Cannula 01/09/17 20:00 96 01/09/17 19:16 95 Nasal Cannula 3.0 32 01/09/17 19:16 55 18 95 Nasal Cannula 3.0 32 01/09/17 19:16 Nasal Cannula 3.0 32 01/09/17 19:15 90 20 99 Nasal Cannula 2.0 28 01/09/17 16:00 90 01/09/17 16:00 98.5 118 20 123/75 97 Nasal Cannula 2.0 01/09/17 13:17 Nasal Cannula 01/09/17 13:17 Nasal Cannula 01/09/17 12:00 104 01/09/17 12:00 98.9 88 18 90/47 93 Nasal Cannula 2.0 Intake and Output 01/09/17 01/10/17 19:00 07:00 Intake Total 915.908 ml 410.730 ml Output Total 400 ml 300 ml Balance 515.908 ml 110.730 ml Intake Oral 510 ml IV Total 155.908 ml 160.730 ml Blood Product 250 ml 250 ml Output Urine Total 400 ml 300 ml Objective GENERAL: The patient is awake, male, some persistent congestion, HEENT: Temporal wasting. Oropharynx is moist. Gag present. NECK: Supple. Carotids 2+. LUNGS: scattered rhonchi. No wheezes. minimal change CARDIAC: S1 and S2. Regular rate and rhythm. Soft at the parasternal border. No rubs or gallops. ABDOMEN: Soft and nontender. No distention. no HSM EXTREMITIES: No cyanosis. No clubbing. No edema. NEUROLOGIC: Grossly nonfocal. Microbiology Date/Time Source Procedure Growth Status 01/07/17 14:55 Blood Blood Culture - Preliminary NO GROWTH AFTER 48 HOURS Resulted 01/07/17 14:20 Blood Blood Culture - Preliminary NO GROWTH AFTER 48 HOURS Resulted 01/07/17 15:15 Nasal Nares MRSA Culture - Final Staphylococcus Aureus - Mrsa Complete 01/07/17 15:15 Rectum VRE Culture - Final NO VANCOMYCIN RESISTANT ENTEROCOCCUS ... Complete Laboratory Tests 01/09/17 13:45: Activated Partial Thromboplast Time 69H 01/09/17 20:50: Vancomycin Level Trough 11.3 01/10/17 03:55: Activated Partial Thromboplast Time 59H, White Blood Count 12.9H, Red Blood Count 3.16L, Hemoglobin 9.4L, Hematocrit 27.6L, Mean Corpuscular Volume 87, Mean Corpuscular Hemoglobin 29.8, Mean Corpuscular Hemoglobin Concent 34.1, Red Cell Distribution Width 13.4, Platelet Count 152, Mean Platelet Volume 8.2, Neutrophils (%) (Auto) , Lymphocytes (%) (Auto) , Monocytes (%) (Auto) , Eosinophils (%) (Auto) , Basophils (%) (Auto) , Neutrophils % (Manual) [Pending] , Lymphocytes % (Manual) [Pending], Platelet Estimate [Pending], Platelet Morphology [Pending], Sodium Level 140, Potassium Level 3.1L, Chloride Level 101 , Carbon Dioxide Level 21, Anion Gap 18H, Blood Urea Nitrogen 49H, Creatinine 1.6H, Estimat Glomerular Filtration Rate , Glucose Level 166H, Calcium Level 7.8L, Magnesium Level 1.4L, Total Bilirubin 0.9, Aspartate Amino Transf (AST/ SGOT) 18, Alanine Aminotransferase (ALT/SGPT) 15, Alkaline Phosphatase 96, Troponin I 0.41*H, Pro-B-Type Natriuretic Peptide 62050G, Total Protein 6.6, Albumin 2.6L, Globulin 4.0, Albumin/Globulin Ratio 0.6L Current Medications Medications (Trade) Dose Ordered Sig/Subhash Route PRN Reason Start Time Stop Time Status Last Admin Dose Admin Acetaminophen 650 mg 650 mg Q6H PRN ORAL Mild Pain/Temp > 100.5 01/08/17 20:45 02/07/17 20:44 01/08/17 21:46 Albuterol/ Ipratropium (DuoNeb 0.5-3(2.5)mg/3ml) 3 ml Q6HRT HHN 01/07/17 19:00 01/12/17 18:59 01/09/17 19:16 Aspirin (ASA) 81 mg DAILY ORAL 01/08/17 09:00 02/07/17 08:59 01/09/17 08:30 Atorvastatin Calcium (Lipitor) 10 mg BEDTIME ORAL 01/07/17 21:00 02/06/17 20:59 01/09/17 20:47 Carvedilol (Coreg) 12.5 mg EVERY 12 HOURS ORAL 01/08/17 21:00 02/07/17 20:59 01/09/17 20:46 Cefepime HCl/ Dextrose (Maxipime/D5W) 55 ml @ 110 mls/hr Q24H IVPB 01/08/17 15:30 01/15/17 15:29 01/09/17 14:57 Dextrose (Dextrose 50%) STAT PRN IV Hypoglycemia 01/07/17 18:15 02/06/17 18:14 Finasteride (Proscar) 5 mg DAILY ORAL 01/08/17 09:00 02/07/17 08:59 01/09/17 08:36 Heparin Sodium/ Dextrose (Heparin) 500 ml @ 33.929 mls/ hr adjust per protocol IV 01/10/17 06:29 02/06/17 20:44 01/10/17 06:36 Insulin Aspart (NovoLOG) BEFORE MEALS AND HS SUBQ 01/07/17 21:00 02/06/17 20:59 01/10/17 06:28 Pantoprazole 40 mg 40 mg DAILY ORAL 01/08/17 09:00 02/07/17 08:59 01/09/17 08:30 Tamsulosin HCl (Flomax) 0.4 mg BEDTIME ORAL 01/07/17 21:00 02/06/17 20:59 01/09/17 20:49 REJI OJEDA January 10, 2017 09:06
[2017-01-10 10:31] LABS: BAND NEUTROPHILS % (MANUAL) 0 % (0-8); BASOPHILS % (MANUAL) 0 % (0-2); EOSINOPHILS % (MANUAL) 0 % (0-3); HYPOCHROMASIA 1+; LYMPHOCYTES % (MANUAL) 11 % (20-45); NEUTROPHILS % (MANUAL) 89 % (45-75); PLATELET ESTIMATE ADEQUATE; PLATELET MORPHOLOGY NORMAL; TOTAL CELLS COUNTED 100
[2017-01-10] MEDS: Aspirin Baby 81mg ORAL SCH (10:53)
[2017-01-10] MEDS: Carvedilol 12.5mg tab ORAL SCH ×2 (10:53→21:18)
--- NOTE | 2017-01-10 11:02 | Infectious Diseases Prog Note ---
Assessment/Plan Assessment/Plan antibiotics : vancomycin iv, cefepime A 1. pneumonia 2. renal failure 3. dementia 4. fever improving 5. leucocytosis P 1. continue iv cefepime 2. d/c iv vancomycin 3. will follow up cultures Subjective ROS Limited/Unobtainable: Yes Constitutional: Denies: chills, fever Respiratory: Reports: dry cough, Denies: shortness of breath Gastrointestinal/Abdominal: Denies: diarrhea, nausea, vomiting Musculoskeletal: Denies: pain Allergies: Coded Allergies: No Known Allergies (Unverified , 01/07/17) Objective Vital Signs Last 24 Hour Vital Signs Date Time Temp Pulse Resp B/P Pulse Ox O2 Delivery O2 Flow Rate FiO2 01/10/17 10:53 75 124/63 01/10/17 08:23 98.1 75 16 124/63 98 Nasal Cannula 3.0 01/10/17 07:12 Nasal Cannula 01/10/17 07:10 Nasal Cannula 3.0 32 01/10/17 07:10 Nasal Cannula 01/10/17 07:10 96 Nasal Cannula 3.0 32 01/10/17 03:55 97.9 101 16 129/75 96 Nasal Cannula 01/10/17 03:55 101 01/10/17 00:42 Nasal Cannula 01/10/17 00:41 Nasal Cannula 01/10/17 00:00 90 01/09/17 23:52 98.2 80 16 104/82 96 Nasal Cannula 01/09/17 20:46 94 124/63 01/09/17 20:00 98.6 94 15 124/63 99 Nasal Cannula 01/09/17 20:00 96 01/09/17 19:16 95 Nasal Cannula 3.0 32 01/09/17 19:16 55 18 95 Nasal Cannula 3.0 32 01/09/17 19:16 Nasal Cannula 3.0 32 01/09/17 19:15 90 20 99 Nasal Cannula 2.0 28 01/09/17 16:00 90 01/09/17 16:00 98.5 118 20 123/75 97 Nasal Cannula 2.0 01/09/17 13:17 Nasal Cannula 01/09/17 13:17 Nasal Cannula 01/09/17 12:00 104 01/09/17 12:00 98.9 88 18 90/47 93 Nasal Cannula 2.0 Height (Feet): 5 Height (Inches): 9.00 Weight (Pounds): 170 Respiratory/Chest: rhonchi - bilaterally Cardiovascular: normal rate, regular rhythm, no gallop/murmur Abdomen: soft, non tender Extremities: no edema Microbiology Date/Time Source Procedure Growth Status 01/07/17 14:55 Blood Blood Culture - Preliminary NO GROWTH AFTER 48 HOURS Resulted 01/07/17 14:20 Blood Blood Culture - Preliminary NO GROWTH AFTER 48 HOURS Resulted 01/07/17 15:15 Nasal Nares MRSA Culture - Final Staphylococcus Aureus - Mrsa Complete 01/07/17 15:15 Rectum VRE Culture - Final NO VANCOMYCIN RESISTANT ENTEROCOCCUS ... Complete Laboratory Tests Test 01/09/17 13:45 01/09/17 20:50 01/10/17 03:55 Activated Partial Thromboplast Time 69 SEC (23-33) H 59 SEC (23-33) H Vancomycin Level Trough 11.3 ug/mL (5.0-12.0) White Blood Count 12.9 K/UL (4.8-10.8) H Red Blood Count 3.16 M/UL (4.70-6.10) L Hemoglobin 9.4 G/DL (14.2-18.0) L Hematocrit 27.6 % (42.0-52.0) L Mean Corpuscular Volume 87 FL (80-99) Mean Corpuscular Hemoglobin 29.8 PG (27.0-31.0) Mean Corpuscular Hemoglobin Concent 34.1 G/DL (32.0-36.0) Red Cell Distribution Width 13.4 % (11.6-14.8) Platelet Count 152 K/UL (150-450) Mean Platelet Volume 8.2 FL (6.5-10.1) Neutrophils (%) (Auto) % (45.0-75.0) Lymphocytes (%) (Auto) % (20.0-45.0) Monocytes (%) (Auto) % (1.0-10.0) Eosinophils (%) (Auto) % (0.0-3.0) Basophils (%) (Auto) % (0.0-2.0) Differential Total Cells Counted 100 Neutrophils % (Manual) 89 % (45-75) H Lymphocytes % (Manual) 11 % (20-45) L Monocytes % (Manual) 0 % (1-10) L Eosinophils % (Manual) 0 % (0-3) Basophils % (Manual) 0 % (0-2) Band Neutrophils 0 % (0-8) Platelet Estimate Adequate Platelet Morphology Normal Hypochromasia 1+ Sodium Level 140 mEQ/L (135-145) Potassium Level 3.1 mEQ/L (3.4-4.9) L Chloride Level 101 mEQ/L (98-107) Carbon Dioxide Level 21 mEQ/L (20-30) Anion Gap 18 (5-15) H Blood Urea Nitrogen 49 mg/dL (7-23) H Creatinine 1.6 mg/dL (0.7-1.2) H Estimat Glomerular Filtration Rate mL/min (>60) Glucose Level 166 mg/dL (74-106) H Calcium Level 7.8 mg/dL (8.6-10.2) L Magnesium Level 1.4 mg/dL (1.7-2.5) L Total Bilirubin 0.9 mg/dL (0.0-1.2) Aspartate Amino Transf (AST/SGOT) 18 U/L (5-40) Alanine Aminotransferase (ALT/SGPT) 15 U/L (3-41) Alkaline Phosphatase 96 U/L (40-129) Troponin I 0.41 ng/mL (<=0.30) *H Pro-B-Type Natriuretic Peptide 53161 pg/mL (0-450) H Total Protein 6.6 g/dL (6.6-8.7) Albumin 2.6 g/dL (3.5-5.2) L Globulin 4.0 g/dL Albumin/Globulin Ratio 0.6 (1.0-2.7) L VINICIO VAUGHAN January 10, 2017 11:02
[2017-01-10 11:56] VITALS: BP 126/68
[2017-01-10] MEDS ORDERED: DuoNeb 0.5-3(2.5)mg/3ml neb HHN PRN (13:00)
[2017-01-10] MEDS ORDERED: NS 275ml ONE (15:47)
[2017-01-10] MEDS: Cefepime HCl 1 GM in D5W 55 ML IVPB SCH (15:49)
[2017-01-10 16:14] VITALS: BP 138/80
[2017-01-10] MEDS ORDERED: KCl 10% 40mEq/30ml liquid ORAL ONE (19:00)
[2017-01-10 20:00] VITALS: BP 116/66
[2017-01-10] MEDS: Tamsulosin 0.4mg cap ORAL SCH (21:18)
[2017-01-10] MEDS: KCl 10% 40mEq/30ml liquid ORAL ONE ×2 (21:19→22:00)
[2017-01-11] VITALS: BP 106/58
[2017-01-11 04:00] VITALS: BP 118/66
--- NOTE | 2017-01-11 05:08 | Progress Note ---
DATE: 01/10/2017 CARDIOLOGY PROGRESS NOTE SUBJECTIVE: The patient remains with no complaints of chest pain or shortness of breath. He continues on IV antibiotics for respiratory infection. There is still some congestion. PHYSICAL EXAMINATION: VITAL SIGNS: Blood pressure 124/63, pulse 75, and respirations 16. Monitored rhythm is sinus and episodes of sinus tachycardia as well as paroxysms of atrial fibrillation. LUNGS: Coarse breath sounds. Few rhonchi. HEART: Irregularly irregular. Normal S1, S2. ABDOMEN: Soft. EXTREMITIES: Trace edema. LABORATORY DATA: White count 12.9, hemoglobin 9.4, troponin down to 0.41, BUN 49, creatinine 1.6, magnesium 1.4, and potassium 3.1. Pronatriuretic peptide over 18,000. Albumin 2.6. IMPRESSION: 1. Acute myocardial infarction. 2. Acute and chronic renal failure. 3. Anemia status post transfusion. 4. Hypomagnesemia. 5. Hypokalemia. 6. Paroxysmal atrial fibrillation. 7. Permanent pacemaker. 8. Acute on chronic diastolic congestive heart failure. 9. Moderate to severe protein-calorie malnutrition. PLAN: 1. Beta-blockade. 2. Antiplatelet therapy. 3. Replace potassium and magnesium. 4. Diuresis. 5. Reassess full anticoagulation. 6. We will attempt pacemaker interrogation once device type is made available. Stanislav Jain M.D. DRJulian PEREZ JOB#: [id number] CC:
[2017-01-11] MEDS: NovoLOG Insulin Flexpen SUBQ SCH ×4 (06:29→20:50)
[2017-01-11 06:39] LABS: BASOPHILS % (AUTO) 0.2 % (0.0-2.0); EOSINOPHILS % (AUTO) 0.1 % (0.0-3.0); LYMPHOCYTES % (AUTO) 14.1 % (20.0-45.0); MEAN CORPUSCULAR HEMOGLOBIN 29.5 PG (27.0-31.0); MEAN CORPUSCULAR HGB CONC 32.8 G/DL (32.0-36.0); MEAN CORPUSCULAR VOLUME 90 FL (80-99); MEAN PLATELET VOLUME 7.6 FL (6.5-10.1); MONOCYTES % (AUTO) 7.3 % (1.0-10.0); NEUTROPHILS % (AUTO) 78.4 % (45.0-75.0); PLATELET COUNT 143 K/UL (150-450); RED BLOOD COUNT 3.24 M/UL (4.70-6.10); RED CELL DISTRIBUTION WIDTH 13.8 % (11.6-14.8)
[2017-01-11] MEDS: DuoNeb 0.5-3(2.5)mg/3ml neb HHN SCH ×4 (07:01→18:59)
[2017-01-11 07:05] LABS: ALANINE AMINOTRANSFERASE 22 U/L (3-41); ALBUMIN/GLOBULIN RATIO 0.5 (1.0-2.7); ANION GAP 19 (5-15); ASPARTATE AMINO TRANSFERASE 22 U/L (5-40); CARBON DIOXIDE 22 mEQ/L (20-30); CHLORIDE 102 mEQ/L (98-107); CREATININE 1.4 mg/dL (0.7-1.2); HEMOLYSIS 4; POTASSIUM 3.5 mEQ/L (3.4-4.9); SODIUM 143 mEQ/L (135-145); TOTAL PROTEIN 6.5 g/dL (6.6-8.7)
--- NOTE | 2017-01-11 07:41 | Infectious Diseases Prog Note ---
Assessment/Plan Assessment/Plan A: 1. pneumonia 2. renal failure improving 3. dementia 4. Non ST [facility] 5. leucocytosis resolved 6. MRSA colonization P 1. continue iv cefepime Subjective ROS Limited/Unobtainable: Yes Allergies: Coded Allergies: No Known Allergies (Unverified , 01/07/17) Objective Vital Signs Last 24 Hour Vital Signs Date Time Temp Pulse Resp B/P Pulse Ox O2 Delivery O2 Flow Rate FiO2 01/11/17 07:00 82 18 92 Nasal Cannula 3.0 01/11/17 06:59 92 Nasal Cannula 3.0 01/11/17 06:58 82 18 Nasal Cannula 3.0 01/11/17 06:57 Nasal Cannula 3.0 01/11/17 04:00 98.4 80 24 118/66 96 Nasal Cannula 2.0 01/11/17 04:00 80 01/11/17 01:44 94 19 99 Nasal Cannula 3.0 32 01/11/17 01:34 60 16 95 Nasal Cannula 3.0 32 01/11/17 01:34 32 01/11/17 00:00 98.1 74 24 106/58 96 Nasal Cannula 3.0 01/11/17 00:00 84 01/10/17 21:23 99 18 Room Air 01/10/17 21:18 88 116/66 01/10/17 20:00 99.0 88 24 116/66 92 Room Air 01/10/17 20:00 89 01/10/17 19:40 Nasal Cannula 3.0 32 01/10/17 19:40 95 Nasal Cannula 3.0 32 01/10/17 16:14 98.2 83 16 138/80 96 Nasal Cannula 2.0 01/10/17 16:00 88 01/10/17 12:54 Nasal Cannula 01/10/17 12:54 Nasal Cannula 01/10/17 12:00 89 01/10/17 11:56 98.7 84 16 126/68 96 Nasal Cannula 2.0 01/10/17 10:53 75 124/63 01/10/17 08:23 98.1 75 16 124/63 98 Nasal Cannula 3.0 01/10/17 08:00 88 Height (Feet): 5 Height (Inches): 9.00 Weight (Pounds): 170 General Appearance: no acute distress HEENT: mucous membranes moist Respiratory/Chest: lungs clear Cardiovascular: normal rate, pacemaker/AICD Abdomen: soft, non tender Extremities: no edema Neurologic/Psychiatric: other - awake Laboratory Tests Test 01/10/17 12:45 01/11/17 04:35 Activated Partial Thromboplast Time 56 SEC (23-33) H White Blood Count 10.0 K/UL (4.8-10.8) Red Blood Count 3.24 M/UL (4.70-6.10) L Hemoglobin 9.6 G/DL (14.2-18.0) L Hematocrit 29.2 % (42.0-52.0) L Mean Corpuscular Volume 90 FL (80-99) Mean Corpuscular Hemoglobin 29.5 PG (27.0-31.0) Mean Corpuscular Hemoglobin Concent 32.8 G/DL (32.0-36.0) Red Cell Distribution Width 13.8 % (11.6-14.8) Platelet Count 143 K/UL (150-450) L Mean Platelet Volume 7.6 FL (6.5-10.1) Neutrophils (%) (Auto) 78.4 % (45.0-75.0) H Lymphocytes (%) (Auto) 14.1 % (20.0-45.0) L Monocytes (%) (Auto) 7.3 % (1.0-10.0) Eosinophils (%) (Auto) 0.1 % (0.0-3.0) Basophils (%) (Auto) 0.2 % (0.0-2.0) Sodium Level 143 mEQ/L (135-145) Potassium Level 3.5 mEQ/L (3.4-4.9) Chloride Level 102 mEQ/L (98-107) Carbon Dioxide Level 22 mEQ/L (20-30) Anion Gap 19 (5-15) H Blood Urea Nitrogen 51 mg/dL (7-23) H Creatinine 1.4 mg/dL (0.7-1.2) H Estimat Glomerular Filtration Rate mL/min (>60) Glucose Level 158 mg/dL (74-106) H Calcium Level 8.0 mg/dL (8.6-10.2) L Total Bilirubin 0.7 mg/dL (0.0-1.2) Aspartate Amino Transf (AST/SGOT) 22 U/L (5-40) Alanine Aminotransferase (ALT/SGPT) 22 U/L (3-41) Alkaline Phosphatase 59 U/L (40-129) Total Protein 6.5 g/dL (6.6-8.7) L Albumin 2.3 g/dL (3.5-5.2) L Globulin 4.2 g/dL Albumin/Globulin Ratio 0.5 (1.0-2.7) L Current Medications Medications (Trade) Dose Ordered Sig/Subhash Route PRN Reason Start Time Stop Time Status Last Admin Dose Admin Acetaminophen (Tylenol) 650 mg Q6H PRN ORAL Mild Pain/Temp > 100.5 01/08/17 20:45 02/07/17 20:44 01/08/17 21:46 Albuterol/ Ipratropium (DuoNeb 0.5-3(2.5)mg/3ml) 3 ml Q6HRT HHN 01/07/17 19:00 01/12/17 18:59 01/11/17 07:04 Albuterol/ Ipratropium (DuoNeb 0.5-3(2.5)mg/3ml) 3 ml Q6HRT PRN HHN Shortness of Breath 01/10/17 13:00 01/15/17 12:59 01/11/17 01:30 Aspirin (ASA) 81 mg DAILY ORAL 01/08/17 09:00 02/07/17 08:59 01/10/17 10:53 Atorvastatin Calcium (Lipitor) 10 mg BEDTIME ORAL 01/07/17 21:00 02/06/17 20:59 01/10/17 21:19 Carvedilol (Coreg) 12.5 mg EVERY 12 HOURS ORAL 01/08/17 21:00 02/07/17 20:59 01/10/17 21:18 Cefepime HCl/ Dextrose (Maxipime/D5W) 55 ml @ 110 mls/hr Q24H IVPB 01/08/17 15:30 01/15/17 15:29 01/10/17 15:49 Dextrose (Dextrose 50%) STAT PRN IV Hypoglycemia 01/07/17 18:15 02/06/17 18:14 Finasteride (Proscar) 5 mg DAILY ORAL 01/08/17 09:00 02/07/17 08:59 01/10/17 10:53 Heparin Sodium (Porcine) (Heparin 5000 units/ml) 5,000 units EVERY 12 HOURS SUBQ 01/11/17 09:00 02/10/17 08:59 Insulin Aspart (NovoLOG) BEFORE MEALS AND HS SUBQ 01/07/17 21:00 02/06/17 20:59 01/11/17 06:29 Pantoprazole 40 mg 40 mg DAILY ORAL 01/08/17 09:00 02/07/17 08:59 01/10/17 10:54 Tamsulosin HCl (Flomax) 0.4 mg BEDTIME ORAL 01/07/17 21:00 02/06/17 20:59 01/10/17 21:18 ABDOULAYE ALFONSO January 11, 2017 07:41
[2017-01-11 08:00] VITALS: BP 123/68
--- NOTE | 2017-01-11 08:28 | Pulmonology Progress Note ---
Assessment/Plan Assessment/Plan IMPRESSION: 1. Acute myocardial infarction. 2. Elevated troponin. 3. Elevated natriuretic peptide. 4. Severe protein-calorie malnutrition. 5. Chronic renal failure. 6. Anemia. 7. Leukocytosis. 8. Pneumonia. 9. Respiratory congestion. 10. Chronic encephalopathy. PLAN care noted and reviewed IV antibiotics noted ID noted and appreciated monitor troponins; trending downwards supportive care and no plans for active cardiac intervention monitor labs nutrition hope to dc in am if stable impression, plan, and exam edited and reviewed in detail care discussed with RN Subjective ROS Limited/Unobtainable: Yes Allergies: Coded Allergies: No Known Allergies (Unverified , 01/07/17) Subjective care noted some mild congestion troponin noted MRSA nares Objective Last 24 Hour Vital Signs Date Time Temp Pulse Resp B/P Pulse Ox O2 Delivery O2 Flow Rate FiO2 01/11/17 07:10 75 20 98 Nasal Cannula 3.0 01/11/17 07:00 82 18 92 Nasal Cannula 3.0 01/11/17 06:59 92 Nasal Cannula 3.0 01/11/17 06:58 82 18 Nasal Cannula 3.0 01/11/17 06:57 Nasal Cannula 3.0 01/11/17 04:00 98.4 80 24 118/66 96 Nasal Cannula 2.0 01/11/17 04:00 80 01/11/17 01:44 94 19 99 Nasal Cannula 3.0 32 01/11/17 01:34 60 16 95 Nasal Cannula 3.0 32 01/11/17 01:34 32 01/11/17 00:00 98.1 74 24 106/58 96 Nasal Cannula 3.0 01/11/17 00:00 84 01/10/17 21:23 99 18 Room Air 01/10/17 21:18 88 116/66 01/10/17 20:00 99.0 88 24 116/66 92 Room Air 01/10/17 20:00 89 01/10/17 19:40 Nasal Cannula 3.0 32 01/10/17 19:40 95 Nasal Cannula 3.0 32 01/10/17 16:14 98.2 83 16 138/80 96 Nasal Cannula 2.0 01/10/17 16:00 88 01/10/17 12:54 Nasal Cannula 01/10/17 12:54 Nasal Cannula 01/10/17 12:00 89 01/10/17 11:56 98.7 84 16 126/68 96 Nasal Cannula 2.0 01/10/17 10:53 75 124/63 Intake and Output 01/10/17 01/11/17 19:00 07:00 Intake Total 355 ml 520 ml Output Total 450 ml 500 ml Balance -95 ml 20 ml Intake Oral 300 ml 120 ml IV Total 55 ml 400 ml Output Urine Total 450 ml 500 ml Objective GENERAL: The patient is awake, male, some mild congestion, HEENT: Temporal wasting. Oropharynx is moist. Gag present. NECK: Supple. Carotids 2+. LUNGS: scattered mild rhonchi. No wheezes. minimal change CARDIAC: S1 and S2. Regular rate and rhythm. Soft at the parasternal border. No rubs or gallops. ABDOMEN: Soft and nontender. No distention. no HSM EXTREMITIES: No cyanosis. No clubbing. No edema. NEUROLOGIC: Grossly nonfocal. Laboratory Tests 01/10/17 12:45: Activated Partial Thromboplast Time 56H 01/11/17 04:35: White Blood Count 10.0, Red Blood Count 3.24L, Hemoglobin 9.6L, Hematocrit 29.2L , Mean Corpuscular Volume 90, Mean Corpuscular Hemoglobin 29.5, Mean Corpuscular Hemoglobin Concent 32.8, Red Cell Distribution Width 13.8, Platelet Count 143L, Mean Platelet Volume 7.6, Neutrophils (%) (Auto) 78.4H, Lymphocytes (%) (Auto) 14.1L, Monocytes (%) (Auto) 7.3, Eosinophils (%) (Auto) 0.1, Basophils (%) (Auto) 0.2, Sodium Level 143, Potassium Level 3.5, Chloride Level 102, Carbon Dioxide Level 22, Anion Gap 19H, Blood Urea Nitrogen 51H, Creatinine 1.4H, Estimat Glomerular Filtration Rate , Glucose Level 158H, Calcium Level 8.0L, Total Bilirubin 0.7, Aspartate Amino Transf (AST/SGOT) 22, Alanine Aminotransferase (ALT/SGPT) 22, Alkaline Phosphatase 59, Total Protein 6.5L, Albumin 2.3L, Globulin 4.2, Albumin/Globulin Ratio 0.5L Current Medications Medications (Trade) Dose Ordered Sig/Subhash Route PRN Reason Start Time Stop Time Status Last Admin Dose Admin Acetaminophen (Tylenol) 650 mg Q6H PRN ORAL Mild Pain/Temp > 100.5 01/08/17 20:45 02/07/17 20:44 01/08/17 21:46 Albuterol/ Ipratropium (DuoNeb 0.5-3(2.5)mg/3ml) 3 ml Q6HRT HHN 01/07/17 19:00 01/12/17 18:59 01/11/17 07:04 Albuterol/ Ipratropium (DuoNeb 0.5-3(2.5)mg/3ml) 3 ml Q6HRT PRN HHN Shortness of Breath 01/10/17 13:00 01/15/17 12:59 01/11/17 01:30 Aspirin (ASA) 81 mg DAILY ORAL 01/08/17 09:00 02/07/17 08:59 01/10/17 10:53 Atorvastatin Calcium (Lipitor) 10 mg BEDTIME ORAL 01/07/17 21:00 02/06/17 20:59 01/10/17 21:19 Carvedilol (Coreg) 12.5 mg EVERY 12 HOURS ORAL 01/08/17 21:00 02/07/17 20:59 01/10/17 21:18 Cefepime HCl/ Dextrose (Maxipime/D5W) 55 ml @ 110 mls/hr Q24H IVPB 01/08/17 15:30 01/15/17 15:29 01/10/17 15:49 Dextrose (Dextrose 50%) STAT PRN IV Hypoglycemia 01/07/17 18:15 02/06/17 18:14 Finasteride (Proscar) 5 mg DAILY ORAL 01/08/17 09:00 02/07/17 08:59 01/10/17 10:53 Heparin Sodium (Porcine) (Heparin 5000 units/ml) 5,000 units EVERY 12 HOURS SUBQ 01/11/17 09:00 02/10/17 08:59 Insulin Aspart (NovoLOG) BEFORE MEALS AND HS SUBQ 01/07/17 21:00 02/06/17 20:59 01/11/17 06:29 Pantoprazole 40 mg 40 mg DAILY ORAL 01/08/17 09:00 02/07/17 08:59 01/10/17 10:54 Tamsulosin HCl (Flomax) 0.4 mg BEDTIME ORAL 01/07/17 21:00 6/2/17 20:59 01/10/17 21:18 REJI OJEDA January 11, 2017 08:28
[2017-01-11] MEDS: Carvedilol 12.5mg tab ORAL SCH ×2 (09:19→20:38)
[2017-01-11] MEDS: Heparin 5000 units/ml inj SUBQ SCH ×2 (09:23→20:40)
[2017-01-11] MEDS: Aspirin Baby 81mg ORAL SCH (09:29)
--- NOTE | 2017-01-11 10:53 | Cardiology Report ---
APPROVED REPORT EKG Measurement Heart [id number] Normal sinus rhythm Inferior ST-T abn - consider ischemia Abnormal ECG
--- NOTE | 2017-01-11 10:53 | Diagnostic Imaging Report ---
Indication: Dyspnea Comparison: 01/07/17 A single view chest radiograph was obtained. Findings: Increasing interstitial nodular infiltrates noted bilaterally with patchy heterogeneous pattern of disease. Heart is mildly enlarged. Pacemakers noted. Bones are osteopenic. Impression: Increasing interstitial edema versus infiltrates.
[2017-01-11 12:00] VITALS: BP 117/80
[2017-01-11] MEDS ORDERED: KCl 10% 20 mEq/15ml liquid ORAL ONE (14:00)
[2017-01-11 16:00] VITALS: BP 113/70
[2017-01-11] MEDS: Cefepime HCl 1 GM in D5W 55 ML IVPB SCH (18:38)
[2017-01-11 20:00] VITALS: BP 119/58
--- NOTE | 2017-01-11 20:04 | General Progress Note ---
Assessment/Plan Problem List: (1) Hyperkalemia, diminished renal excretion ICD Codes: E87.5 - Hyperkalemia SNOMED: 83248896 (2) Pneumonia ICD Codes: J18.9 - Pneumonia, unspecified organism SNOMED: 805212025 Qualifiers: Qualified Codes: J18.9 - Pneumonia, unspecified organism (3) ARF (acute renal failure) ICD Codes: N17.9 - Acute kidney failure, unspecified SNOMED: 93329621 Qualifiers: Qualified Codes: N17.9 - Acute kidney failure, unspecified (4) Severe sepsis ICD Codes: A41.9 - Sepsis, unspecified organism; R65.20 - Severe sepsis without septic shock SNOMED: 57138468 (5) NSTEMI (non-ST elevated myocardial infarction) ICD Codes: I21.4 - Non-ST elevation (NSTEMI) myocardial infarction; R65.20 - Severe sepsis without septic shock SNOMED: 076617886 Status: stable, progressing Assessment/Plan iv abx cardiac rx monitor cxr antiplt rx dvt/stress ulcer prophylaxis tele Subjective Date patient seen: January 10, 2017 ROS Limited/Unobtainable: Yes Constitutional: Reports: no symptoms HEENT: Reports: no symptoms Cardiovascular: Reports: no symptoms Respiratory: Reports: no symptoms Gastrointestinal/Abdominal: Reports: no symptoms Genitourinary: Reports: no symptoms Neurologic/Psychiatric: Reports: no symptoms Endocrine: Reports: no symptoms Hematologic/Lymphatic: Reports: no symptoms Allergies: Coded Allergies: No Known Allergies (Unverified , 01/07/17) All Systems: reviewed and negative except above Subjective no new complaints. denies chest pain in sinus. no bleeding. no fever or chills. confused. follows commands though. Objective Last 24 Hour Vital Signs Date Time Temp Pulse Resp B/P Pulse Ox O2 Delivery O2 Flow Rate FiO2 01/11/17 19:07 62 18 98 Room Air 01/11/17 18:59 60 18 94 Room Air 01/11/17 18:58 94 Room Air 01/11/17 18:58 Nasal Cannula 3.0 32 01/11/17 16:00 84 01/11/17 16:00 98.3 81 22 113/70 91 Nasal Cannula 3.0 01/11/17 13:48 41 20 98 Nasal Cannula 3.0 01/11/17 13:45 49 18 98 Nasal Cannula 3.0 01/11/17 12:00 80 01/11/17 12:00 99.1 86 20 117/80 99 Nasal Cannula 3.0 01/11/17 09:19 84 123/69 01/11/17 09:06 78 01/11/17 08:00 98.3 84 19 123/68 97 Nasal Cannula 3.0 01/11/17 07:10 75 20 98 Nasal Cannula 3.0 01/11/17 07:00 82 18 92 Nasal Cannula 3.0 01/11/17 06:59 92 Nasal Cannula 3.0 01/11/17 06:58 82 18 Nasal Cannula 3.0 01/11/17 06:57 Nasal Cannula 3.0 01/11/17 04:00 98.4 80 24 118/66 96 Nasal Cannula 2.0 01/11/17 04:00 80 01/11/17 01:44 94 19 99 Nasal Cannula 3.0 32 01/11/17 01:34 60 16 95 Nasal Cannula 3.0 32 01/11/17 01:34 32 01/11/17 00:00 98.1 74 24 106/58 96 Nasal Cannula 3.0 01/11/17 00:00 84 01/10/17 21:23 99 18 Room Air 01/10/17 21:18 88 116/66 01/10/17 20:00 99.0 88 24 116/66 92 Room Air 01/10/17 20:00 89 Intake and Output 01/10/17 01/11/17 19:00 07:00 Intake Total 355 ml 520 ml Output Total 450 ml 500 ml Balance -95 ml 20 ml Intake Oral 300 ml 120 ml IV Total 55 ml 400 ml Output Urine Total 450 ml 500 ml Laboratory Tests 01/11/17 04:35: White Blood Count 10.0, Red Blood Count 3.24L, Hemoglobin 9.6L, Hematocrit 29.2L , Mean Corpuscular Volume 90, Mean Corpuscular Hemoglobin 29.5, Mean Corpuscular Hemoglobin Concent 32.8, Red Cell Distribution Width 13.8, Platelet Count 143L, Mean Platelet Volume 7.6, Neutrophils (%) (Auto) 78.4H, Lymphocytes (%) (Auto) 14.1L, Monocytes (%) (Auto) 7.3, Eosinophils (%) (Auto) 0.1, Basophils (%) (Auto) 0.2, Sodium Level 143, Potassium Level 3.5, Chloride Level 102, Carbon Dioxide Level 22, Anion Gap 19H, Blood Urea Nitrogen 51H, Creatinine 1.4H, Estimat Glomerular Filtration Rate , Glucose Level 158H, Calcium Level 8.0L, Total Bilirubin 0.7, Aspartate Amino Transf (AST/SGOT) 22, Alanine Aminotransferase (ALT/SGPT) 22, Alkaline Phosphatase 59, Total Protein 6.5L, Albumin 2.3L, Globulin 4.2, Albumin/Globulin Ratio 0.5L 01/11/17 06:00: Stool Occult Blood Negative Height (Feet): 5 Height (Inches): 9.00 Weight (Pounds): 170 General Appearance: WD/WN, alert, confused Neck: supple Cardiovascular: regular rhythm Respiratory/Chest: lungs clear, normal breath sounds, no respiratory distress Abdomen: normal bowel sounds, non tender, soft, no organomegaly Edema: no edema noted Arm (L), no edema noted Arm (R), no edema noted Leg (L), no edema noted Leg (R), no edema noted Pedal (L), no edema noted Pedal (R), no edema noted Generalized Neurologic: strapper and buffer II-XII grossly normal, alert, responsive WENDIE CASTELLANOS January 11, 2017 20:04
--- NOTE | 2017-01-11 20:07 | General Progress Note ---
Assessment/Plan Problem List: (1) Hyperkalemia, diminished renal excretion ICD Codes: E87.5 - Hyperkalemia SNOMED: 45281247 (2) Pneumonia ICD Codes: J18.9 - Pneumonia, unspecified organism SNOMED: 353944488 Qualifiers: Qualified Codes: J18.9 - Pneumonia, unspecified organism (3) ARF (acute renal failure) ICD Codes: N17.9 - Acute kidney failure, unspecified SNOMED: 65038253 Qualifiers: Qualified Codes: N17.9 - Acute kidney failure, unspecified (4) Severe sepsis ICD Codes: A41.9 - Sepsis, unspecified organism; R65.20 - Severe sepsis without septic shock SNOMED: 03048018 (5) NSTEMI (non-ST elevated myocardial infarction) ICD Codes: I21.4 - Non-ST elevation (NSTEMI) myocardial infarction; R65.20 - Severe sepsis without septic shock SNOMED: 769064369 Status: stable, progressing Assessment/Plan iv abx cardiac rx monitor cxr resp care o2 antiplt rx dvt/stress ulcer prophylaxis tele Subjective ROS Limited/Unobtainable: Yes Constitutional: Reports: no symptoms HEENT: Reports: no symptoms Cardiovascular: Reports: no symptoms Respiratory: Reports: cough, shortness of breath Gastrointestinal/Abdominal: Reports: no symptoms Genitourinary: Reports: no symptoms Neurologic/Psychiatric: Reports: pre-existing deficit Endocrine: Reports: no symptoms Hematologic/Lymphatic: Reports: anemia Allergies: Coded Allergies: No Known Allergies (Unverified , 01/07/17) All Systems: reviewed and negative except above Subjective no new complaints. denies chest pain mild cough. mild sob in sinus. no bleeding. off heparin drip. on iv abx. no fever or chills. confused. follows commands though. Objective Last 24 Hour Vital Signs Date Time Temp Pulse Resp B/P Pulse Ox O2 Delivery O2 Flow Rate FiO2 01/11/17 19:07 62 18 98 Room Air 01/11/17 18:59 60 18 94 Room Air 01/11/17 18:58 94 Room Air 01/11/17 18:58 Nasal Cannula 3.0 32 01/11/17 16:00 84 01/11/17 16:00 98.3 81 22 113/70 91 Nasal Cannula 3.0 01/11/17 13:48 41 20 98 Nasal Cannula 3.0 01/11/17 13:45 49 18 98 Nasal Cannula 3.0 01/11/17 12:00 80 01/11/17 12:00 99.1 86 20 117/80 99 Nasal Cannula 3.0 01/11/17 09:19 84 123/69 01/11/17 09:06 78 01/11/17 08:00 98.3 84 19 123/68 97 Nasal Cannula 3.0 01/11/17 07:10 75 20 98 Nasal Cannula 3.0 01/11/17 07:00 82 18 92 Nasal Cannula 3.0 01/11/17 06:59 92 Nasal Cannula 3.0 01/11/17 06:58 82 18 Nasal Cannula 3.0 01/11/17 06:57 Nasal Cannula 3.0 01/11/17 04:00 98.4 80 24 118/66 96 Nasal Cannula 2.0 01/11/17 04:00 80 01/11/17 01:44 94 19 99 Nasal Cannula 3.0 32 01/11/17 01:34 60 16 95 Nasal Cannula 3.0 32 01/11/17 01:34 32 01/11/17 00:00 98.1 74 24 106/58 96 Nasal Cannula 3.0 01/11/17 00:00 84 01/10/17 21:23 99 18 Room Air 01/10/17 21:18 88 116/66 Intake and Output 01/10/17 01/11/17 19:00 07:00 Intake Total 355 ml 520 ml Output Total 450 ml 500 ml Balance -95 ml 20 ml Intake Oral 300 ml 120 ml IV Total 55 ml 400 ml Output Urine Total 450 ml 500 ml Laboratory Tests 01/11/17 04:35: White Blood Count 10.0, Red Blood Count 3.24L, Hemoglobin 9.6L, Hematocrit 29.2L , Mean Corpuscular Volume 90, Mean Corpuscular Hemoglobin 29.5, Mean Corpuscular Hemoglobin Concent 32.8, Red Cell Distribution Width 13.8, Platelet Count 143L, Mean Platelet Volume 7.6, Neutrophils (%) (Auto) 78.4H, Lymphocytes (%) (Auto) 14.1L, Monocytes (%) (Auto) 7.3, Eosinophils (%) (Auto) 0.1, Basophils (%) (Auto) 0.2, Sodium Level 143, Potassium Level 3.5, Chloride Level 102, Carbon Dioxide Level 22, Anion Gap 19H, Blood Urea Nitrogen 51H, Creatinine 1.4H, Estimat Glomerular Filtration Rate , Glucose Level 158H, Calcium Level 8.0L, Total Bilirubin 0.7, Aspartate Amino Transf (AST/SGOT) 22, Alanine Aminotransferase (ALT/SGPT) 22, Alkaline Phosphatase 59, Total Protein 6.5L, Albumin 2.3L, Globulin 4.2, Albumin/Globulin Ratio 0.5L 01/11/17 06:00: Stool Occult Blood Negative Height (Feet): 5 Height (Inches): 9.00 Weight (Pounds): 170 General Appearance: WD/WN, alert, confused Neck: supple Cardiovascular: normal rate, regular rhythm Respiratory/Chest: rhonchi - bilaterally, expiratory wheezing Abdomen: normal bowel sounds, non tender, soft, no organomegaly, no mass Edema: no edema noted Arm (L), no edema noted Arm (R), no edema noted Leg (L), no edema noted Leg (R), no edema noted Pedal (L), no edema noted Pedal (R), no edema noted Generalized WENDIE CASTELLANOS January 11, 2017 20:07
[2017-01-11] MEDS: Tamsulosin 0.4mg cap ORAL SCH (20:38)
--- NOTE | 2017-01-11 22:38 | Progress Note ---
DATE: 01/11/2017 CARDIOLOGY PROGRESS NOTE SUBJECTIVE: The patient has less congestion. No shortness of breath. No chest pain. He was diuresed yesterday. Electrolytes were repleted as well. OBJECTIVE: VITAL SIGNS: Blood pressure 118/66, pulse 80, respirations 24, and afebrile. RESPIRATORY: Few rhonchi and rales. HEART: Regular rhythm and rate. Normal S1 and S2. ABDOMEN: Soft. EXTREMITIES: Trace edema. LABORATORY DATA: White count 10 and hemoglobin 9.6. Potassium 3.5, BUN 51, and creatinine 1.4. Albumin 2.3. IMPRESSION: 1. Acute myocardial infarction. 2. Hypokalemia. 3. Hypomagnesemia. 4. Prerenal azotemia with acute kidney injury due to acute tubular necrosis. 5. Severe protein-calorie malnutrition. 6. Anemia. 7. Pneumonia. 8. 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 9. Permanent pacemaker. PLAN: 1. Additional magnesium. 2. Continue beta-ann and anti-platelet therapy. 3. Additional potassium. 4. Reassess for diuresis. 5. Pacemaker interrogation once device type is ascertained. 6. Off anticoagulation at this time. Stanislav Jain M.D. DR: AMADA JOB#: [id number] CC:
[2017-01-12] VITALS: BP 134/78
[2017-01-12] MEDS: DuoNeb 0.5-3(2.5)mg/3ml neb HHN SCH ×3 (00:52→13:01)
[2017-01-12 04:00] VITALS: BP 127/71
[2017-01-12] MEDS: NovoLOG Insulin Flexpen SUBQ SCH ×4 (06:00→20:15)
[2017-01-12 06:04] LABS: BASOPHILS % (AUTO) 0.6 % (0.0-2.0); EOSINOPHILS % (AUTO) 0.1 % (0.0-3.0); LYMPHOCYTES % (AUTO) 13.5 % (20.0-45.0); MEAN CORPUSCULAR HEMOGLOBIN 29.4 PG (27.0-31.0); MEAN CORPUSCULAR HGB CONC 32.5 G/DL (32.0-36.0); MEAN CORPUSCULAR VOLUME 90 FL (80-99); MEAN PLATELET VOLUME 7.6 FL (6.5-10.1); MONOCYTES % (AUTO) 7.6 % (1.0-10.0); NEUTROPHILS % (AUTO) 78.2 % (45.0-75.0); PLATELET COUNT 136 K/UL (150-450); RED BLOOD COUNT 3.24 M/UL (4.70-6.10); RED CELL DISTRIBUTION WIDTH 14.2 % (11.6-14.8)
[2017-01-12 06:19] LABS: ANION GAP 19 (5-15); CALCIUM 8.1 mg/dL (8.6-10.2); CARBON DIOXIDE 21 mEQ/L (20-30); CHLORIDE 104 mEQ/L (98-107); CREATININE 1.4 mg/dL (0.7-1.2); HEMOLYSIS 13; POTASSIUM 3.6 mEQ/L (3.4-4.9); SODIUM 144 mEQ/L (135-145)
[2017-01-12 08:00] VITALS: BP 132/95
--- NOTE | 2017-01-12 08:07 | General Progress Note ---
Assessment/Plan Problem List: (1) Hyperkalemia, diminished renal excretion ICD Codes: E87.5 - Hyperkalemia SNOMED: 52751130 (2) Pneumonia ICD Codes: J18.9 - Pneumonia, unspecified organism SNOMED: 771164179 Qualifiers: Qualified Codes: J18.9 - Pneumonia, unspecified organism (3) ARF (acute renal failure) ICD Codes: N17.9 - Acute kidney failure, unspecified SNOMED: 43349114 Qualifiers: Qualified Codes: N17.9 - Acute kidney failure, unspecified (4) Severe sepsis ICD Codes: A41.9 - Sepsis, unspecified organism; R65.20 - Severe sepsis without septic shock SNOMED: 90408243 (5) NSTEMI (non-ST elevated myocardial infarction) ICD Codes: I21.4 - Non-ST elevation (NSTEMI) myocardial infarction; R65.20 - Severe sepsis without septic shock SNOMED: 429366209 Status: stable, progressing Assessment/Plan iv abx cardiac rx monitor cxr resp care o2 antiplt rx dvt/stress ulcer prophylaxis tele replace lytes follow up mag added steroids Subjective ROS Limited/Unobtainable: No Constitutional: Reports: malaise, weakness HEENT: Reports: no symptoms Cardiovascular: Reports: no symptoms Respiratory: Reports: shortness of breath, wheezing Gastrointestinal/Abdominal: Reports: no symptoms Genitourinary: Reports: no symptoms Neurologic/Psychiatric: Reports: pre-existing deficit Endocrine: Reports: no symptoms Hematologic/Lymphatic: Reports: anemia Allergies: Coded Allergies: No Known Allergies (Unverified , 01/07/17) All Systems: reviewed and negative except above Subjective having bigeminy of monitor. still with some sob. diffuse wheezing noted. on o2 and resp rx Objective Last 24 Hour Vital Signs Date Time Temp Pulse Resp B/P Pulse Ox O2 Delivery O2 Flow Rate FiO2 01/12/17 07:12 56 16 99 Nasal Cannula 3.0 32 01/12/17 07:11 95 Nasal Cannula 3.0 32 01/12/17 07:11 Nasal Cannula 3.0 32 01/12/17 07:07 55 16 95 Nasal Cannula 3.0 32 01/12/17 05:50 79 01/12/17 04:00 99.1 72 20 127/71 99 Nasal Cannula 2.0 01/12/17 00:59 68 16 99 Nasal Cannula 3.0 32 01/12/17 00:51 66 16 98 Nasal Cannula 3.0 32 01/12/17 00:00 98.4 66 19 134/78 Nasal Cannula 2.0 01/12/17 00:00 71 01/11/17 20:38 96 119/58 01/11/17 20:00 98.0 76 20 119/58 98 Nasal Cannula 2.0 01/11/17 20:00 70 01/11/17 19:07 62 18 98 Room Air 01/11/17 18:59 60 18 94 Room Air 01/11/17 18:58 94 Room Air 01/11/17 18:58 Nasal Cannula 3.0 32 01/11/17 16:00 84 01/11/17 16:00 98.3 81 22 113/70 91 Nasal Cannula 3.0 01/11/17 13:48 41 20 98 Nasal Cannula 3.0 01/11/17 13:45 49 18 98 Nasal Cannula 3.0 01/11/17 12:00 80 01/11/17 12:00 99.1 86 20 117/80 99 Nasal Cannula 3.0 01/11/17 09:19 84 123/69 01/11/17 09:06 78 Intake and Output 01/11/17 01/12/17 19:00 07:00 Intake Total 220 ml 355 ml Output Total 700 ml 400 ml Balance -480 ml -45 ml Intake Oral 120 ml 200 ml IV Total 100 ml 155 ml Output Urine Total 700 ml 400 ml Laboratory Tests 01/12/17 04:50: White Blood Count 10.0, Red Blood Count 3.24L, Hemoglobin 9.5L, Hematocrit 29.3L , Mean Corpuscular Volume 90, Mean Corpuscular Hemoglobin 29.4, Mean Corpuscular Hemoglobin Concent 32.5, Red Cell Distribution Width 14.2, Platelet Count 136L, Mean Platelet Volume 7.6, Neutrophils (%) (Auto) 78.2H, Lymphocytes (%) (Auto) 13.5L, Monocytes (%) (Auto) 7.6, Eosinophils (%) (Auto) 0.1, Basophils (%) (Auto) 0.6, Sodium Level 144, Potassium Level 3.6, Chloride Level 104, Carbon Dioxide Level 21, Anion Gap 19H, Blood Urea Nitrogen 51H, Creatinine 1.4H, Estimat Glomerular Filtration Rate , Glucose Level 128H, Calcium Level 8.1L, Pro-B-Type Natriuretic Peptide 01830A Height (Feet): 5 Height (Inches): 9.00 Weight (Pounds): 170 General Appearance: WD/WN, alert Neck: supple Cardiovascular: regular rhythm Respiratory/Chest: expiratory wheezing Abdomen: normal bowel sounds, non tender, soft, no organomegaly Lymphatic: normal anterior cervical (L), normal anterior cervical (R), normal axillary (L), normal axillary (R), normal inguinal (L), normal inguinal (R), normal other, normal posterior cervical (L), normal posterior cervical (R), normal submandibular (L), normal submandibular (R), normal supraclavicular (L), normal supraclavicular (R) WENDIE CASTELLANOS January 12, 2017 08:07
--- NOTE | 2017-01-12 08:17 | Pulmonology Progress Note ---
Assessment/Plan Assessment/Plan IMPRESSION: 1. Acute myocardial infarction. 2. Elevated troponin. 3. Elevated natriuretic peptide. 4. Severe protein-calorie malnutrition. 5. Chronic renal failure. 6. Anemia. 7. Leukocytosis. 8. Pneumonia. 9. Respiratory congestion. 10. Chronic encephalopathy. 11. bronchospasm 12. pulmonary edema PLAN care noted and reviewed IV antibiotics noted ID noted and appreciated monitor troponins; IV lasix trial IV solumedrol and monitor monitor labs nutrition not ready for dc follow up chest xray impression, plan, and exam edited and reviewed in detail care discussed with RN Subjective ROS Limited/Unobtainable: Yes Allergies: Coded Allergies: No Known Allergies (Unverified , 01/07/17) Subjective care noted some wheezing noted troponin noted- nearly normal MRSA nares Objective Last 24 Hour Vital Signs Date Time Temp Pulse Resp B/P Pulse Ox O2 Delivery O2 Flow Rate FiO2 01/12/17 07:12 56 16 99 Nasal Cannula 3.0 32 01/12/17 07:11 95 Nasal Cannula 3.0 32 01/12/17 07:11 Nasal Cannula 3.0 32 01/12/17 07:07 55 16 95 Nasal Cannula 3.0 32 01/12/17 05:50 79 01/12/17 04:00 99.1 72 20 127/71 99 Nasal Cannula 2.0 01/12/17 00:59 68 16 99 Nasal Cannula 3.0 32 01/12/17 00:51 66 16 98 Nasal Cannula 3.0 32 01/12/17 00:00 98.4 66 19 134/78 Nasal Cannula 2.0 01/12/17 00:00 71 01/11/17 20:38 96 119/58 01/11/17 20:00 98.0 76 20 119/58 98 Nasal Cannula 2.0 01/11/17 20:00 70 01/11/17 19:07 62 18 98 Room Air 01/11/17 18:59 60 18 94 Room Air 01/11/17 18:58 94 Room Air 01/11/17 18:58 Nasal Cannula 3.0 32 01/11/17 16:00 84 01/11/17 16:00 98.3 81 22 113/70 91 Nasal Cannula 3.0 01/11/17 13:48 41 20 98 Nasal Cannula 3.0 01/11/17 13:45 49 18 98 Nasal Cannula 3.0 01/11/17 12:00 80 01/11/17 12:00 99.1 86 20 117/80 99 Nasal Cannula 3.0 01/11/17 09:19 84 123/69 01/11/17 09:06 78 Intake and Output 01/11/17 01/12/17 19:00 07:00 Intake Total 220 ml 355 ml Output Total 700 ml 400 ml Balance -480 ml -45 ml Intake Oral 120 ml 200 ml IV Total 100 ml 155 ml Output Urine Total 700 ml 400 ml Objective GENERAL: The patient is awake, male, some congestion, HEENT: Temporal wasting. Oropharynx is moist. Gag present. NECK: Supple. Carotids 2+. LUNGS: scattered wheezes. reduced breath sounds CARDIAC: S1 and S2. Regular rate and rhythm. Soft at the parasternal border. No rubs or gallops. ABDOMEN: Soft and nontender. No distention. no HSM EXTREMITIES: No cyanosis. No clubbing. No edema. NEUROLOGIC: Grossly nonfocal. confused Laboratory Tests 01/12/17 04:50: White Blood Count 10.0, Red Blood Count 3.24L, Hemoglobin 9.5L, Hematocrit 29.3L , Mean Corpuscular Volume 90, Mean Corpuscular Hemoglobin 29.4, Mean Corpuscular Hemoglobin Concent 32.5, Red Cell Distribution Width 14.2, Platelet Count 136L, Mean Platelet Volume 7.6, Neutrophils (%) (Auto) 78.2H, Lymphocytes (%) (Auto) 13.5L, Monocytes (%) (Auto) 7.6, Eosinophils (%) (Auto) 0.1, Basophils (%) (Auto) 0.6, Sodium Level 144, Potassium Level 3.6, Chloride Level 104, Carbon Dioxide Level 21, Anion Gap 19H, Blood Urea Nitrogen 51H, Creatinine 1.4H, Estimat Glomerular Filtration Rate , Glucose Level 128H, Calcium Level 8.1L, Pro-B-Type Natriuretic Peptide [id number] Current Medications Medications (Trade) Dose Ordered Sig/Subhash Route PRN Reason Start Time Stop Time Status Last Admin Dose Admin Acetaminophen (Tylenol) 650 mg Q6H PRN ORAL Mild Pain/Temp > 100.5 01/08/17 20:45 02/07/17 20:44 01/11/17 13:51 Albuterol/ Ipratropium (DuoNeb 0.5-3(2.5)mg/3ml) 3 ml Q6HRT HHN 01/07/17 19:00 01/12/17 18:59 01/12/17 07:11 Albuterol/ Ipratropium (DuoNeb 0.5-3(2.5)mg/3ml) 3 ml Q6HRT PRN HHN Shortness of Breath 01/10/17 13:00 01/15/17 12:59 01/11/17 01:30 Aspirin (ASA) 81 mg DAILY ORAL 01/08/17 09:00 02/07/17 08:59 01/11/17 09:29 Atorvastatin Calcium (Lipitor) 10 mg BEDTIME ORAL 01/07/17 21:00 02/06/17 20:59 01/11/17 20:38 Carvedilol (Coreg) 12.5 mg EVERY 12 HOURS ORAL 01/08/17 21:00 02/07/17 20:59 01/11/17 20:38 Cefepime HCl/ Dextrose (Maxipime/D5W) 55 ml @ 110 mls/hr Q24H IVPB 01/08/17 15:30 01/15/17 15:29 01/11/17 18:38 Dextrose (Dextrose 50%) STAT PRN IV Hypoglycemia 01/07/17 18:15 02/06/17 18:14 Finasteride (Proscar) 5 mg DAILY ORAL 01/08/17 09:00 02/07/17 08:59 01/11/17 09:19 Heparin Sodium (Porcine) (Heparin 5000 units/ml) 5,000 units EVERY 12 HOURS SUBQ 01/11/17 09:00 02/10/17 08:59 01/11/17 20:40 Insulin Aspart (NovoLOG) BEFORE MEALS AND HS SUBQ 01/07/17 21:00 02/06/17 20:59 01/12/17 06:00 Methylprednisolone Sodium Succinate (Solu-MEDROL) 40 mg EVERY 8 HOURS IVP 01/12/17 08:15 02/11/17 08:14 Pantoprazole 40 mg 40 mg DAILY ORAL 01/08/17 09:00 02/07/17 08:59 01/11/17 09:20 Potassium Chloride (K-Dur) 40 meq ONCE ONCE ORAL 5/8/17 08:15 01/12/17 08:16 Tamsulosin HCl (Flomax) 0.4 mg BEDTIME ORAL 01/07/17 21:00 02/06/17 20:59 01/11/17 20:38 REJI OJEDA January 12, 2017 08:17
[2017-01-12 08:41] LABS: MAGNESIUM 2.5 mg/dL (1.7-2.5); PHOSPHORUS 2.7 mg/dL (2.5-4.8)
[2017-01-12] MEDS: Carvedilol 12.5mg tab ORAL SCH ×2 (08:57→20:00)
[2017-01-12] MEDS: Aspirin Baby 81mg ORAL SCH (08:57)
[2017-01-12] MEDS: Heparin 5000 units/ml inj SUBQ SCH ×2 (09:05→20:02)
[2017-01-12] MEDS: Solu-MEDROL 40mg Inj IVP SCH ×3 (09:06→21:40)
--- NOTE | 2017-01-12 10:22 | Cardiology Report ---
APPROVED REPORT EXAM: Two-dimensional and M-mode echocardiogram with Doppler and color Doppler. INDICATION CAD M-Mode DIMENSIONS IVSd1.2 (0.7-1.1cm)Left Atrium (MM)4.4 (1.6-4.0cm) LVDd5.7 (3.5-5.6cm)Aortic Root3.4 (2.0-3.7cm) PWd1.2 (0.7-1.1cm)Aortic Cusp Exc.2.2 (1.5-2.0cm) LVDs4.1 (2.5-4.0cm) PWs1.6 cm Normal left ventricular chamber size, systolic function. Posterobasal akinesis. Left ventricular ejection fraction estimated to be 50 %. Concentric left ventricular hypertrophy. No evidence of pericardial effusion. Anterior Echo-free space, may be due to pericardial fat or effusion. Mild Left atrial enlargement.. Right cardiac chamber sizes are within normal limits. Focal aortic valve sclerosis with adequate cusp excursion. Thickened mitral valve leaflets with normal excursion. Mitral annulus and aortic root calcification. Normal pulmonic valve structure. / Normal tricuspid valve structure. IVC at normal size 2.0cm with / with physiologic collapse. A color flow and spectral Doppler study was performed and revealed: No aortic regurgitation.. Mild mitral regurgitation.. Mitral diastolic velocities suggest reduced left ventricular relaxation c/w mild LV diastolic dysfunction (Grade I ). Trace to Mild, tricuspid regurgitation. Tricuspid systolic velocities suggests peak right ventricular systolic pressure of 28 mmHg. No Pulmonic regurgitation present.
[2017-01-12] MEDS ORDERED: NS 275ml ONE (10:46)
[2017-01-12] MEDS ORDERED: Tubing IV Secondary IV ONE (10:46)
[2017-01-12 11:12] LABS: OTHERS PATHOLOGIST COMMENT
--- NOTE | 2017-01-12 11:53 | Diagnostic Imaging Report ---
Indications: Shortness of breath and chest pain Technique: Portable AP chest Findings: Comparison: 01/10/2017 Cardiac silhouette remains mildly enlarged. Diffuse bilateral mixed interstitial and alveolar lung opacities are unchanged. No pleural or other abnormalities are identified. IMPRESSION: Stable bilateral pulmonary infiltrates--edema versus pneumonitis
[2017-01-12 12:00] VITALS: BP 116/77
--- NOTE | 2017-01-12 12:51 | Infectious Diseases Prog Note ---
Assessment/Plan Assessment/Plan antibiotics : cefepime A 1. pneumonia 2. renal failure 3. dementia 4. fever improving 5. leucocytosis resolved P 1. continue iv cefepime 2. will follow up cultures Subjective ROS Limited/Unobtainable: Yes Allergies: Coded Allergies: No Known Allergies (Unverified , 01/07/17) Objective Vital Signs Last 24 Hour Vital Signs Date Time Temp Pulse Resp B/P Pulse Ox O2 Delivery O2 Flow Rate FiO2 01/12/17 08:57 85 132/95 01/12/17 08:00 80 01/12/17 08:00 97.7 85 20 132/95 100 Nasal Cannula 3.0 01/12/17 07:12 56 16 99 Nasal Cannula 3.0 32 01/12/17 07:11 95 Nasal Cannula 3.0 32 01/12/17 07:11 Nasal Cannula 3.0 32 01/12/17 07:07 55 16 95 Nasal Cannula 3.0 32 01/12/17 05:50 79 01/12/17 04:00 99.1 72 20 127/71 99 Nasal Cannula 2.0 01/12/17 00:59 68 16 99 Nasal Cannula 3.0 32 01/12/17 00:51 66 16 98 Nasal Cannula 3.0 32 01/12/17 00:00 98.4 66 19 134/78 Nasal Cannula 2.0 01/12/17 00:00 71 01/11/17 20:38 96 119/58 01/11/17 20:00 98.0 76 20 119/58 98 Nasal Cannula 2.0 01/11/17 20:00 70 01/11/17 19:07 62 18 98 Room Air 01/11/17 18:59 60 18 94 Room Air 01/11/17 18:58 94 Room Air 01/11/17 18:58 Nasal Cannula 3.0 32 01/11/17 16:00 84 01/11/17 16:00 98.3 81 22 113/70 91 Nasal Cannula 3.0 01/11/17 13:48 41 20 98 Nasal Cannula 3.0 01/11/17 13:45 49 18 98 Nasal Cannula 3.0 Height (Feet): 5 Height (Inches): 9.00 Weight (Pounds): 170 Respiratory/Chest: rhonchi - bilaterally Cardiovascular: normal rate, regular rhythm, no gallop/murmur Abdomen: soft, non tender Extremities: no edema Laboratory Tests Test 01/12/17 04:50 White Blood Count 10.0 K/UL (4.8-10.8) Red Blood Count 3.24 M/UL (4.70-6.10) L Hemoglobin 9.5 G/DL (14.2-18.0) L Hematocrit 29.3 % (42.0-52.0) L Mean Corpuscular Volume 90 FL (80-99) Mean Corpuscular Hemoglobin 29.4 PG (27.0-31.0) Mean Corpuscular Hemoglobin Concent 32.5 G/DL (32.0-36.0) Red Cell Distribution Width 14.2 % (11.6-14.8) Platelet Count 136 K/UL (150-450) L Mean Platelet Volume 7.6 FL (6.5-10.1) Neutrophils (%) (Auto) 78.2 % (45.0-75.0) H Lymphocytes (%) (Auto) 13.5 % (20.0-45.0) L Monocytes (%) (Auto) 7.6 % (1.0-10.0) Eosinophils (%) (Auto) 0.1 % (0.0-3.0) Basophils (%) (Auto) 0.6 % (0.0-2.0) Sodium Level 144 mEQ/L (135-145) Potassium Level 3.6 mEQ/L (3.4-4.9) Chloride Level 104 mEQ/L (98-107) Carbon Dioxide Level 21 mEQ/L (20-30) Anion Gap 19 (5-15) H Blood Urea Nitrogen 51 mg/dL (7-23) H Creatinine 1.4 mg/dL (0.7-1.2) H Estimat Glomerular Filtration Rate mL/min (>60) Glucose Level 128 mg/dL (74-106) H Calcium Level 8.1 mg/dL (8.6-10.2) L Phosphorus Level 2.7 mg/dL (2.5-4.8) Magnesium Level 2.5 mg/dL (1.7-2.5) Pro-B-Type Natriuretic Peptide 23909 pg/mL (0-450) H VINICIO VAUGHAN January 12, 2017 12:51
[2017-01-12 16:00] VITALS: BP 112/79
[2017-01-12] MEDS: Cefepime HCl 1 GM in D5W 55 ML IVPB SCH (17:08)
[2017-01-12 20:00] VITALS: BP 156/79
[2017-01-12] MEDS: Tamsulosin 0.4mg cap ORAL SCH (20:00)
[2017-01-13] VITALS (7 sets, daily range): BP systolic 135–156; BP diastolic 63–101
[2017-01-13] MEDS: Solu-MEDROL 40mg Inj IVP SCH ×3 (05:30→21:12)
--- NOTE | 2017-01-13 06:09 | Progress Note ---
DATE: 01/12/2017 CARDIOLOGY PROGRESS NOTE SUBJECTIVE: The patient's condition continues to improve. He has no chest pain. He continues to have some congestion and wheezing. OBJECTIVE: VITAL SIGNS: Blood pressure 127/71, pulse 72, respirations 20, and afebrile. T-max 99.1 degrees. HEENT: No thrush. NECK: Supple. LUNGS: With coarse breath sounds and rhonchi. CARDIAC: Regular rhythm and rate. Normal S1 and S2 with a fourth heart sound. ABDOMEN: Soft. EXTREMITIES: No edema. LABORATORY AND DIAGNOSTIC DATA: Chest x-ray yesterday revealed bilateral infiltrates and possible edema. White count 10 and hemoglobin 9.5. Pro-natriuretic peptide 15,000. BUN 51 and creatinine 1.4. Potassium 3.6. Magnesium 2.5. Albumin 2.3. IMPRESSION: 1. Acute myocardial infarction. 2. Bilateral pneumonia. 3. Acute diastolic congestive heart failure. 4. Prerenal azotemia. 5. Borderline hypokalemia. 6. Methicillin-resistant Staphylococcus aureus colonization. PLAN: 1. Anti-platelet therapy. 2. Continue beta blockade. 3. Taper steroids. 4. Continue anti-lipid therapy. 5. Antimicrobials per Infectious Disease systems management consultant. 6. Diuresis x1. 7. Reassess clinical parameters. Stanislav Jain M.D. DR: CAREY JOB#: [id number] CC:
[2017-01-13 06:38] LABS: ANION GAP 18 (5-15); CALCIUM 8.7 mg/dL (8.6-10.2); CARBON DIOXIDE 21 mEQ/L (20-30); CHLORIDE 106 mEQ/L (98-107); CREATININE 1.5 mg/dL (0.7-1.2); HEMOLYSIS 22; SODIUM 145 mEQ/L (135-145)
[2017-01-13] MEDS: NovoLOG Insulin Flexpen SUBQ SCH ×4 (06:45→21:15)
[2017-01-13] MEDS ORDERED: KCl 10% 40mEq/30ml liquid NG ONE (08:00)
[2017-01-13] MEDS: Aspirin Baby 81mg ORAL SCH (09:13)
[2017-01-13] MEDS: Carvedilol 12.5mg tab ORAL SCH (09:14)
[2017-01-13] MEDS: Heparin 5000 units/ml inj SUBQ SCH ×2 (09:15→21:14)
--- NOTE | 2017-01-13 09:16 | Pulmonology Progress Note ---
Assessment/Plan Assessment/Plan IMPRESSION: 1. Acute myocardial infarction. 2. Elevated troponin. 3. Elevated natriuretic peptide. 4. Severe protein-calorie malnutrition. 5. Chronic renal failure. 6. Anemia. 7. Leukocytosis. 8. Pneumonia. 9. Respiratory congestion. 10. Chronic encephalopathy. 11. bronchospasm 12. pulmonary edema PLAN care noted and reviewed IV antibiotics noted ID noted and appreciated IV lasix with some worsening of renal failure IV solumedrol and taper monitor labs nutrition not ready for dc follow up chest xray for change impression, plan, and exam edited and reviewed in detail care discussed with RN Subjective ROS Limited/Unobtainable: Yes Allergies: Coded Allergies: No Known Allergies (Unverified , 01/07/17) Subjective care noted improved wheezing noted troponin noted- nearly normal MRSA nares d/w family Objective Last 24 Hour Vital Signs Date Time Temp Pulse Resp B/P Pulse Ox O2 Delivery O2 Flow Rate FiO2 01/13/17 08:10 98.0 81 22 156/86 96 Room Air 01/13/17 04:00 76 01/13/17 04:00 97.8 78 20 145/82 98 Room Air 01/13/17 00:00 98.1 75 20 136/63 95 Room Air 01/13/17 00:00 74 01/12/17 20:00 92 156/74 01/12/17 20:00 98.7 94 24 156/79 95 Room Air 01/12/17 20:00 91 01/12/17 19:33 Room Air 01/12/17 19:33 93 Room Air 01/12/17 16:00 86 01/12/17 16:00 98.4 86 20 112/79 95 Room Air 01/12/17 15:05 95 01/12/17 12:40 77 16 99 Nasal Cannula 3.0 32 01/12/17 12:35 76 16 94 Nasal Cannula 3.0 32 01/12/17 12:00 98.4 80 20 116/77 92 Room Air Intake and Output 01/12/17 01/13/17 19:00 07:00 Intake Total 500 ml Output Total 875 ml 400 ml Balance -375 ml -400 ml Intake Oral 500 ml Output Urine Total 875 ml 400 ml # Voids 1 Objective GENERAL: The patient is awake, male, some congestion, HEENT: Temporal wasting. Oropharynx is moist. Gag present. NECK: Supple. Carotids 2+. LUNGS: reduced wheezes. reduced breath sounds CARDIAC: S1 and S2. Regular rate and rhythm. Soft at the parasternal border. No rubs or gallops. ABDOMEN: Soft and nontender. No distention. no HSM EXTREMITIES: No cyanosis. No clubbing. No edema. NEUROLOGIC: Grossly nonfocal. confused Laboratory Tests 01/13/17 04:25: Sodium Level 145, Potassium Level 4.0, Chloride Level 106, Carbon Dioxide Level 21, Anion Gap 18H, Blood Urea Nitrogen 63H, Creatinine 1.5H, Estimat Glomerular Filtration Rate , Glucose Level 320#H, Calcium Level 8.7, Pro-B-Type Natriuretic Peptide 26699C Current Medications Medications (Trade) Dose Ordered Sig/Subhash Route PRN Reason Start Time Stop Time Status Last Admin Dose Admin Acetaminophen (Tylenol) 650 mg Q6H PRN ORAL Mild Pain/Temp > 100.5 01/08/17 20:45 02/07/17 20:44 01/11/17 13:51 Albuterol/ Ipratropium (DuoNeb 0.5-3(2.5)mg/3ml) 3 ml Q6HRT PRN HHN Shortness of Breath 01/10/17 13:00 01/15/17 12:59 01/11/17 01:30 Aspirin (ASA) 81 mg DAILY ORAL 01/08/17 09:00 02/07/17 08:59 01/12/17 08:57 Atorvastatin Calcium (Lipitor) 10 mg BEDTIME ORAL 01/07/17 21:00 02/06/17 20:59 01/12/17 20:00 Carvedilol (Coreg) 12.5 mg EVERY 12 HOURS ORAL 01/08/17 21:00 02/07/17 20:59 01/12/17 20:00 Cefepime HCl/ Dextrose (Maxipime/D5W) 55 ml @ 110 mls/hr Q24H IVPB 01/08/17 15:30 01/15/17 15:29 01/12/17 17:08 Dextrose (Dextrose 50%) STAT PRN IV Hypoglycemia 01/07/17 18:15 02/06/17 18:14 Finasteride (Proscar) 5 mg DAILY ORAL 01/08/17 09:00 02/07/17 08:59 01/12/17 09:09 Heparin Sodium (Porcine) (Heparin 5000 units/ml) 5,000 units EVERY 12 HOURS SUBQ 01/11/17 09:00 02/10/17 08:59 01/12/17 20:02 Insulin Aspart (NovoLOG) BEFORE MEALS AND HS SUBQ 01/07/17 21:00 02/06/17 20:59 01/13/17 06:45 Methylprednisolone Sodium Succinate (Solu-MEDROL) 40 mg Q12HR IVP 01/13/17 09:00 02/12/17 08:59 Pantoprazole 40 mg 40 mg DAILY ORAL 01/08/17 09:00 02/07/17 08:59 01/12/17 08:57 Tamsulosin HCl (Flomax) 0.4 mg BEDTIME ORAL 01/07/17 21:00 02/06/17 20:59 01/12/17 20:00 REJI OJEDA January 13, 2017 09:16
--- NOTE | 2017-01-13 11:53 | Infectious Diseases Prog Note ---
Assessment/Plan Assessment/Plan antibiotics : cefepime A 1. pneumonia improving 2. renal failure 3. dementia 4. fever improving 5. leucocytosis resolved P 1. d/c iv cefepime 2. start and continue po levoquin 3 more days 3. will follow up cultures Subjective ROS Limited/Unobtainable: Yes Allergies: Coded Allergies: No Known Allergies (Unverified , 01/07/17) Objective Vital Signs Last 24 Hour Vital Signs Date Time Temp Pulse Resp B/P Pulse Ox O2 Delivery O2 Flow Rate FiO2 01/13/17 09:14 81 156/86 01/13/17 08:10 98.0 81 22 156/86 96 Room Air 01/13/17 08:00 77 01/13/17 07:03 96 Room Air 01/13/17 07:03 Room Air 01/13/17 04:00 76 01/13/17 04:00 97.8 78 20 145/82 98 Room Air 01/13/17 00:00 98.1 75 20 136/63 95 Room Air 01/13/17 00:00 74 01/12/17 20:00 92 156/74 01/12/17 20:00 98.7 94 24 156/79 95 Room Air 01/12/17 20:00 91 01/12/17 19:33 Room Air 01/12/17 19:33 93 Room Air 01/12/17 16:00 86 01/12/17 16:00 98.4 86 20 112/79 95 Room Air 01/12/17 15:05 95 01/12/17 12:40 77 16 99 Nasal Cannula 3.0 32 01/12/17 12:35 76 16 94 Nasal Cannula 3.0 32 01/12/17 12:00 98.4 80 20 116/77 92 Room Air Height (Feet): 5 Height (Inches): 9.00 Weight (Pounds): 170 Respiratory/Chest: lungs clear Cardiovascular: normal rate, regular rhythm, no gallop/murmur Abdomen: soft, non tender Extremities: no edema Laboratory Tests Test 01/13/17 04:25 Sodium Level 145 mEQ/L (135-145) Potassium Level 4.0 mEQ/L (3.4-4.9) Chloride Level 106 mEQ/L (98-107) Carbon Dioxide Level 21 mEQ/L (20-30) Anion Gap 18 (5-15) H Blood Urea Nitrogen 63 mg/dL (7-23) H Creatinine 1.5 mg/dL (0.7-1.2) H Estimat Glomerular Filtration Rate mL/min (>60) Glucose Level 320 mg/dL (74-106) #H Calcium Level 8.7 mg/dL (8.6-10.2) Pro-B-Type Natriuretic Peptide 96738 pg/mL (0-450) H VINICIO VAUGHAN January 13, 2017 11:53
--- NOTE | 2017-01-13 12:08 | Diagnostic Imaging Report ---
Indication: Dyspnea Comparison: 01/11/17 A single view chest radiograph was obtained. Findings: Extensive mixed interstitial and alveolar opacities are present throughout both lung martinez. There is no significant change in this regard. Heart remains mildly enlarged. Pacemaker again noted. Impression: No significant change. Extensive infiltrates versus edema
--- NOTE | 2017-01-13 16:08 | General Progress Note ---
Assessment/Plan Problem List: (1) Hyperkalemia, diminished renal excretion ICD Codes: E87.5 - Hyperkalemia SNOMED: 61367136 (2) Pneumonia ICD Codes: J18.9 - Pneumonia, unspecified organism SNOMED: 242146531 Qualifiers: Qualified Codes: J18.9 - Pneumonia, unspecified organism (3) ARF (acute renal failure) ICD Codes: N17.9 - Acute kidney failure, unspecified SNOMED: 32268685 Qualifiers: Qualified Codes: N17.9 - Acute kidney failure, unspecified (4) Severe sepsis ICD Codes: A41.9 - Sepsis, unspecified organism; R65.20 - Severe sepsis without septic shock SNOMED: 13282246 (5) NSTEMI (non-ST elevated myocardial infarction) ICD Codes: I21.4 - Non-ST elevation (NSTEMI) myocardial infarction; R65.20 - Severe sepsis without septic shock SNOMED: 484941245 Status: stable, progressing Assessment/Plan iv abx cardiac rx monitor cxr- ?worse. ?chronic changes resp care o2 antiplt rx dvt/stress ulcer prophylaxis tele wean steroids monitor lytes/volume status Subjective ROS Limited/Unobtainable: Yes Constitutional: Reports: malaise, weakness HEENT: Reports: no symptoms Cardiovascular: Reports: no symptoms Respiratory: Reports: cough, shortness of breath Gastrointestinal/Abdominal: Reports: no symptoms Genitourinary: Reports: no symptoms Neurologic/Psychiatric: Reports: pre-existing deficit Endocrine: Reports: no symptoms Hematologic/Lymphatic: Reports: no symptoms Allergies: Coded Allergies: No Known Allergies (Unverified , 01/07/17) All Systems: reviewed and negative except above Subjective no new complaints. increased bun/cr. compliant with care. mild sob. sats normal on room air. cxr with extensive infiltrates. Objective Last 24 Hour Vital Signs Date Time Temp Pulse Resp B/P Pulse Ox O2 Delivery O2 Flow Rate FiO2 01/13/17 12:00 98.3 84 21 151/86 94 Room Air 01/13/17 12:00 84 01/13/17 09:14 81 156/86 01/13/17 08:10 98.0 81 22 156/86 96 Room Air 01/13/17 08:00 77 01/13/17 07:03 96 Room Air 01/13/17 07:03 Room Air 01/13/17 04:00 76 01/13/17 04:00 97.8 78 20 145/82 98 Room Air 01/13/17 00:00 98.1 75 20 136/63 95 Room Air 01/13/17 00:00 74 01/12/17 20:00 92 156/74 01/12/17 20:00 98.7 94 24 156/79 95 Room Air 01/12/17 20:00 91 01/12/17 19:33 Room Air 01/12/17 19:33 93 Room Air Intake and Output 01/12/17 01/13/17 19:00 07:00 Intake Total 500 ml Output Total 875 ml 400 ml Balance -375 ml -400 ml Intake Oral 500 ml Output Urine Total 875 ml 400 ml # Voids 1 Laboratory Tests 01/13/17 04:25: Sodium Level 145, Potassium Level 4.0, Chloride Level 106, Carbon Dioxide Level 21, Anion Gap 18H, Blood Urea Nitrogen 63H, Creatinine 1.5H, Estimat Glomerular Filtration Rate , Glucose Level 320#H, Calcium Level 8.7, Pro-B-Type Natriuretic Peptide 91815I Height (Feet): 5 Height (Inches): 9.00 Weight (Pounds): 170 Objective General Appearance: WD/WN, alert Neck: supple Cardiovascular: regular rhythm Respiratory/Chest: expiratory wheezing but less Abdomen: normal bowel sounds, non tender, soft, no organomegaly Lymphatic: normal anterior cervical (L), normal anterior cervical (R), normal axillary (L), normal axillary (R), normal inguinal (L), normal inguinal (R), normal other, normal posterior cervical (L), normal posterior cervical (R), normal submandibular (L), normal submandibular (R), normal supraclavicular (L), normal supraclavicular (R) WENDIE CASTELLANOS January 13, 2017 16:08
[2017-01-13] MEDS: Carvedilol 25mg Tab ORAL SCH (21:13)
[2017-01-13] MEDS: Tamsulosin 0.4mg cap ORAL SCH (21:13)
--- NOTE | 2017-01-13 23:00 | Progress Note ---
DATE: 01/13/2017 CARDIOLOGY PROGRESS NOTE SUBJECTIVE: The patient has less congestion. He is on intravenous steroids. Still he has not had any chest pain. He notes no shortness of breath. OBJECTIVE: VITAL SIGNS: Blood pressure 156/86, pulse rate 81, respirations 20, afebrile, and room air oxygen 94% to 96%. NECK: Supple. Few rhonchi. HEART: Regular rhythm and rate. Normal S1 and S2. ABDOMEN: Soft. No edema. LABORATORY AND DIAGNOSTIC DATA: Sodium 145, potassium 4, bicarbonate 21, BUN 63, and creatinine 1.5. Pronatriuretic peptide 25,000. White count 10 and hemoglobin 9.5. Chest x-ray revealed extensive infiltrates versus edema. IMPRESSION: 1. Prerenal azotemia due to diuresis and steroids. 2. Acute myocardial infarction, completed. 3. Acute diastolic congestive heart failure. 4. Health-care acquired pneumonia. 5. Paroxysmal bronchospasm. 6. Anemia, severe and status post transfusion. 7. Type 2 diabetes mellitus. 8. Severe protein-calorie malnutrition. PLAN: 1. Advance beta ann. 2. Taper steroids. 3. Hold additional cautious diuresis. 4. Monitor volume status and cardiorenal parameters trend. 5. Natriuretic peptide assay. 6. Continue anti-platelet and anti-lipid drugs. The patient remains at high risk. Vance Fierro JOB#: [id number] CC:
[2017-01-14 04:00] VITALS: BP 146/86
[2017-01-14 05:38] LABS: ALANINE AMINOTRANSFERASE 20 U/L (3-41); ALBUMIN/GLOBULIN RATIO 0.5 (1.0-2.7); ANION GAP 16 (5-15); ASPARTATE AMINO TRANSFERASE 14 U/L (5-40); CALCIUM 8.8 mg/dL (8.6-10.2); CARBON DIOXIDE 23 mEQ/L (20-30); CHLORIDE 108 mEQ/L (98-107); CREATININE 1.5 mg/dL (0.7-1.2); HEMOLYSIS 0; SODIUM 147 mEQ/L (135-145); TOTAL PROTEIN 6.7 g/dL (6.6-8.7)
[2017-01-14] MEDS: NovoLOG Insulin Flexpen SUBQ SCH ×4 (06:04→21:00)
--- NOTE | 2017-01-14 06:17 | Pulmonology Progress Note ---
Assessment/Plan Assessment/Plan IMPRESSION: 1. Acute myocardial infarction. 2. Elevated troponin. 3. Elevated natriuretic peptide. 4. Severe protein-calorie malnutrition. 5. Chronic renal failure. 6. Anemia. 7. Leukocytosis. 8. Pneumonia. 9. Respiratory congestion. 10. Chronic encephalopathy. 11. bronchospasm 12. pulmonary edema PLAN care noted and reviewed IV antibiotics noted ID noted and appreciated IV lasix to repeat x 1 IV solumedrol taper monitor labs nutrition hope to dc in am still with significant edema impression, plan, and exam edited and reviewed in detail care discussed with RN Subjective ROS Limited/Unobtainable: Yes Allergies: Coded Allergies: No Known Allergies (Unverified , 01/07/17) Subjective care noted reduced sob troponin noted- nearly normal MRSA nares d/w family Objective Last 24 Hour Vital Signs Date Time Temp Pulse Resp B/P Pulse Ox O2 Delivery O2 Flow Rate FiO2 01/14/17 04:00 78 01/13/17 23:57 84 01/13/17 23:42 97.7 86 19 135/78 95 Room Air 01/13/17 21:13 86 145/101 01/13/17 19:48 97.9 86 21 145/101 95 Room Air 01/13/17 19:30 Room Air 01/13/17 19:30 95 Room Air 01/13/17 19:26 82 01/13/17 16:00 88 01/13/17 16:00 99.2 78 21 138/89 95 Room Air 01/13/17 12:00 98.3 84 21 151/86 94 Room Air 01/13/17 12:00 84 01/13/17 09:14 81 156/86 01/13/17 08:10 98.0 81 22 156/86 96 Room Air 01/13/17 08:00 77 01/13/17 07:03 96 Room Air 01/13/17 07:03 Room Air Intake and Output 01/13/17 01/14/17 19:00 07:00 Intake Total 360 ml Output Total 1500 ml Balance -1140 ml Intake Oral 360 ml Output Urine Total 1500 ml Objective GENERAL: The patient is awake, male, reduced congestion, HEENT: Temporal wasting. Oropharynx is moist. Gag present. NECK: Supple. Carotids 2+. LUNGS: improved wheezes. reduced breath sounds CARDIAC: S1 and S2. Regular rate and rhythm. Soft at the parasternal border. No rubs or gallops. ABDOMEN: Soft and nontender. No distention. no HSM EXTREMITIES: No cyanosis. No clubbing. No edema. NEUROLOGIC: Grossly nonfocal. confused Laboratory Tests 01/14/17 03:40: Sodium Level 147H, Potassium Level 4.0, Chloride Level 108H, Carbon Dioxide Level 23, Anion Gap 16H, Blood Urea Nitrogen 67H, Creatinine 1.5H, Estimat Glomerular Filtration Rate , Glucose Level 286H, Calcium Level 8.8, Total Bilirubin 0.6, Aspartate Amino Transf (AST/SGOT) 14, Alanine Aminotransferase ( ALT/SGPT) 20, Alkaline Phosphatase 76, Total Protein 6.7, Albumin 2.5L, Globulin 4.2, Albumin/Globulin Ratio 0.5L Current Medications Medications (Trade) Dose Ordered Sig/Subhash Route PRN Reason Start Time Stop Time Status Last Admin Dose Admin Acetaminophen (Tylenol) 650 mg Q6H PRN ORAL Mild Pain/Temp > 100.5 01/08/17 20:45 02/07/17 20:44 01/11/17 13:51 Albuterol/ Ipratropium (DuoNeb 0.5-3(2.5)mg/3ml) 3 ml Q6HRT PRN HHN Shortness of Breath 01/10/17 13:00 01/15/17 12:59 01/11/17 01:30 Aspirin (ASA) 81 mg DAILY ORAL 01/08/17 09:00 02/07/17 08:59 01/13/17 09:13 Atorvastatin Calcium (Lipitor) 10 mg BEDTIME ORAL 01/07/17 21:00 02/06/17 20:59 01/13/17 21:12 Carvedilol (Coreg) 25 mg EVERY 12 HOURS ORAL 01/13/17 21:00 02/12/17 20:59 01/13/17 21:13 Dextrose (Dextrose 50%) STAT PRN IV Hypoglycemia 01/07/17 18:15 02/06/17 18:14 Finasteride (Proscar) 5 mg DAILY ORAL 01/08/17 09:00 02/07/17 08:59 01/13/17 09:14 Heparin Sodium (Porcine) (Heparin 5000 units/ml) 5,000 units EVERY 12 HOURS SUBQ 01/11/17 09:00 02/10/17 08:59 01/13/17 21:14 Insulin Aspart (NovoLOG) BEFORE MEALS AND HS SUBQ 01/07/17 21:00 02/06/17 20:59 01/14/17 06:04 Levofloxacin (Levaquin) 750 mg Q48H ORAL 01/13/17 13:00 01/20/17 12:59 01/13/17 12:25 Methylprednisolone Sodium Succinate (Solu-MEDROL) 40 mg Q12HR IVP 01/13/17 09:00 02/12/17 08:59 01/13/17 21:12 Pantoprazole (Protonix) 40 mg DAILY ORAL 01/08/17 09:00 02/07/17 08:59 01/13/17 09:14 Tamsulosin HCl (Flomax) 0.4 mg BEDTIME ORAL 01/07/17 21:00 02/06/17 20:59 01/13/17 21:13 REJI OJEDA January 14, 2017 06:17
[2017-01-14 08:00] VITALS: BP 151/95
[2017-01-14] MEDS: Aspirin Baby 81mg ORAL SCH (08:30)
[2017-01-14] MEDS: Heparin 5000 units/ml inj SUBQ SCH ×2 (08:31→20:59)
[2017-01-14] MEDS: Carvedilol 25mg Tab ORAL SCH ×2 (08:31→20:58)
--- NOTE | 2017-01-14 08:47 | General Progress Note ---
Assessment/Plan Problem List: (1) Hyperkalemia, diminished renal excretion ICD Codes: E87.5 - Hyperkalemia SNOMED: 24683965 (2) Pneumonia ICD Codes: J18.9 - Pneumonia, unspecified organism SNOMED: 073358399 Qualifiers: Qualified Codes: J18.9 - Pneumonia, unspecified organism (3) ARF (acute renal failure) ICD Codes: N17.9 - Acute kidney failure, unspecified SNOMED: 33971388 Qualifiers: Qualified Codes: N17.9 - Acute kidney failure, unspecified (4) Severe sepsis ICD Codes: A41.9 - Sepsis, unspecified organism; R65.20 - Severe sepsis without septic shock SNOMED: 10199757 (5) NSTEMI (non-ST elevated myocardial infarction) ICD Codes: I21.4 - Non-ST elevation (NSTEMI) myocardial infarction; R65.20 - Severe sepsis without septic shock SNOMED: 392798283 Status: stable, progressing Assessment/Plan iv abx diuresis cardiac rx monitor cxr- ?worse. ?chronic changes resp care o2 antiplt rx dvt/stress ulcer prophylaxis tele steroids off monitor lytes/volume status- push h20 Subjective ROS Limited/Unobtainable: No Constitutional: Reports: malaise, weakness HEENT: Reports: no symptoms Cardiovascular: Reports: no symptoms Respiratory: Reports: cough, shortness of breath, wheezing Gastrointestinal/Abdominal: Reports: no symptoms Genitourinary: Reports: no symptoms Neurologic/Psychiatric: Reports: no symptoms Endocrine: Reports: no symptoms Hematologic/Lymphatic: Reports: no symptoms Allergies: Coded Allergies: No Known Allergies (Unverified , 01/07/17) All Systems: reviewed and negative except above Subjective no new complaints. increased bun/cr. compliant with care. mild sob. sats normal on room air. cxr with extensive infiltrates. on iv lasix. pulm and cards noted. sodium up. Objective Last 24 Hour Vital Signs Date Time Temp Pulse Resp B/P Pulse Ox O2 Delivery O2 Flow Rate FiO2 01/14/17 08:31 81 151/95 01/14/17 08:00 98.1 81 20 151/95 97 Room Air 01/14/17 07:39 Room Air 01/14/17 07:39 96 Room Air 01/14/17 04:00 97.7 86 20 146/86 96 Room Air 01/14/17 04:00 78 01/13/17 23:57 84 01/13/17 23:42 97.7 86 19 135/78 95 Room Air 01/13/17 21:13 86 145/101 01/13/17 19:48 97.9 86 21 145/101 95 Room Air 01/13/17 19:30 Room Air 01/13/17 19:30 95 Room Air 01/13/17 19:26 82 01/13/17 16:00 88 01/13/17 16:00 99.2 78 21 138/89 95 Room Air 01/13/17 12:00 98.3 84 21 151/86 94 Room Air 01/13/17 12:00 84 01/13/17 09:14 81 156/86 Intake and Output 01/13/17 01/14/17 19:00 07:00 Intake Total 360 ml 300 ml Output Total 1500 ml 800 ml Balance -1140 ml -500 ml Intake Oral 360 ml 300 ml Output Urine Total 1500 ml 800 ml # Bowel Movements 2 Laboratory Tests 01/14/17 03:40: Sodium Level 147H, Potassium Level 4.0, Chloride Level 108H, Carbon Dioxide Level 23, Anion Gap 16H, Blood Urea Nitrogen 67H, Creatinine 1.5H, Estimat Glomerular Filtration Rate , Glucose Level 286H, Calcium Level 8.8, Total Bilirubin 0.6, Aspartate Amino Transf (AST/SGOT) 14, Alanine Aminotransferase ( ALT/SGPT) 20, Alkaline Phosphatase 76, Pro-B-Type Natriuretic Peptide 35269W, Total Protein 6.7, Albumin 2.5L, Globulin 4.2, Albumin/Globulin Ratio 0.5L Height (Feet): 5 Height (Inches): 9.00 Weight (Pounds): 170 Objective General Appearance: WD/WN, alert Neck: supple Cardiovascular: regular rhythm Respiratory/Chest: expiratory wheezing but less Abdomen: normal bowel sounds, non tender, soft, no organomegaly Lymphatic: normal anterior cervical (L), normal anterior cervical (R), normal axillary (L), normal axillary (R), normal inguinal (L), normal inguinal (R), normal other, normal posterior cervical (L), normal posterior cervical (R), normal submandibular (L), normal submandibular (R), normal supraclavicular (L), normal supraclavicular (R) WENDIE CASTELLANOS January 14, 2017 08:47
[2017-01-14] MEDS ORDERED: Solu-MEDROL 40mg Inj IVP SCH (09:00)
--- NOTE | 2017-01-14 11:56 | Diagnostic Imaging Report ---
Indication: Dyspnea Comparison: 01/13/17 A single view chest radiograph was obtained. Findings: Patchy interstitial nodular airspace opacities are present within the upper lobes and the right perihilar region. Accounting for some differences in technique and projection there is little to no change. Heart is prominent. There is a pacemaker again noted. Impression: Bilateral infiltrates versus asymmetric pulmonary edema. No significant change
[2017-01-14 12:00] VITALS: BP 141/73
--- NOTE | 2017-01-14 14:11 | Infectious Diseases Prog Note ---
Assessment/Plan Assessment/Plan A: 1. pneumonia 2. renal failure improving 3. dementia 4. Non ST ND 5. leucocytosis resolved 6. MRSA colonization P 1. continue Levaquin X 2 days Subjective ROS Limited/Unobtainable: Yes Allergies: Coded Allergies: No Known Allergies (Unverified , 01/07/17) Objective Vital Signs Last 24 Hour Vital Signs Date Time Temp Pulse Resp B/P Pulse Ox O2 Delivery O2 Flow Rate FiO2 01/14/17 12:00 96.8 68 18 141/73 96 Room Air 01/14/17 12:00 68 01/14/17 08:31 81 151/95 01/14/17 08:00 98.1 81 20 151/95 97 Room Air 01/14/17 08:00 80 01/14/17 07:39 Room Air 01/14/17 07:39 96 Room Air 01/14/17 04:00 97.7 86 20 146/86 96 Room Air 01/14/17 04:00 78 01/13/17 23:57 84 01/13/17 23:42 97.7 86 19 135/78 95 Room Air 01/13/17 21:13 86 145/101 01/13/17 19:48 97.9 86 21 145/101 95 Room Air 01/13/17 19:30 Room Air 01/13/17 19:30 95 Room Air 01/13/17 19:26 82 01/13/17 16:00 88 01/13/17 16:00 99.2 78 21 138/89 95 Room Air Height (Feet): 5 Height (Inches): 9.00 Weight (Pounds): 170 General Appearance: no acute distress HEENT: mucous membranes moist Respiratory/Chest: lungs clear Cardiovascular: normal rate Abdomen: soft, non tender Extremities: no edema Neurologic/Psychiatric: alert, responsive Laboratory Tests Test 01/14/17 03:40 Sodium Level 147 mEQ/L (135-145) H Potassium Level 4.0 mEQ/L (3.4-4.9) Chloride Level 108 mEQ/L (98-107) H Carbon Dioxide Level 23 mEQ/L (20-30) Anion Gap 16 (5-15) H Blood Urea Nitrogen 67 mg/dL (7-23) H Creatinine 1.5 mg/dL (0.7-1.2) H Estimat Glomerular Filtration Rate mL/min (>60) Glucose Level 286 mg/dL (74-106) H Calcium Level 8.8 mg/dL (8.6-10.2) Total Bilirubin 0.6 mg/dL (0.0-1.2) Aspartate Amino Transf (AST/SGOT) 14 U/L (5-40) Alanine Aminotransferase (ALT/SGPT) 20 U/L (3-41) Alkaline Phosphatase 76 U/L (40-129) Pro-B-Type Natriuretic Peptide 24550 pg/mL (0-450) H Total Protein 6.7 g/dL (6.6-8.7) Albumin 2.5 g/dL (3.5-5.2) L Globulin 4.2 g/dL Albumin/Globulin Ratio 0.5 (1.0-2.7) L Current Medications Medications (Trade) Dose Ordered Sig/Subhash Route PRN Reason Start Time Stop Time Status Last Admin Dose Admin Acetaminophen (Tylenol) 650 mg Q6H PRN ORAL Mild Pain/Temp > 100.5 01/08/17 20:45 02/07/17 20:44 01/11/17 13:51 Albuterol/ Ipratropium (DuoNeb 0.5-3(2.5)mg/3ml) 3 ml Q6HRT PRN HHN Shortness of Breath 01/10/17 13:00 01/15/17 12:59 01/11/17 01:30 Aspirin (ASA) 81 mg DAILY ORAL 01/08/17 09:00 02/07/17 08:59 01/14/17 08:30 Atorvastatin Calcium (Lipitor) 10 mg BEDTIME ORAL 01/07/17 21:00 02/06/17 20:59 01/13/17 21:12 Carvedilol (Coreg) 25 mg EVERY 12 HOURS ORAL 01/13/17 21:00 02/12/17 20:59 01/14/17 08:31 Dextrose (Dextrose 50%) STAT PRN IV Hypoglycemia 01/07/17 18:15 02/06/17 18:14 Finasteride (Proscar) 5 mg DAILY ORAL 01/08/17 09:00 02/07/17 08:59 01/14/17 08:31 Heparin Sodium (Porcine) (Heparin 5000 units/ml) 5,000 units EVERY 12 HOURS SUBQ 01/11/17 09:00 02/10/17 08:59 01/14/17 08:31 Insulin Aspart (NovoLOG) BEFORE MEALS AND HS SUBQ 01/07/17 21:00 02/06/17 20:59 01/14/17 11:45 Levofloxacin (Levaquin) 750 mg Q48H ORAL 01/13/17 13:00 01/20/17 12:59 01/13/17 12:25 Methylprednisolone Sodium Succinate (Solu-MEDROL) 40 mg DAILY IVP 01/14/17 09:00 02/13/17 08:59 01/14/17 08:31 Pantoprazole (Protonix) 40 mg DAILY ORAL 01/08/17 09:00 02/07/17 08:59 01/14/17 08:31 Tamsulosin HCl (Flomax) 0.4 mg BEDTIME ORAL 01/07/17 21:00 02/06/17 20:59 01/13/17 21:13 ABDOULAYE ALFONSO January 14, 2017 14:11
[2017-01-14 16:00] VITALS: BP 132/74
--- NOTE | 2017-01-14 18:39 | Consultation ---
DATE OF CONSULTATION: NEPHROLOGY CONSULTATION ATTENDING PHYSICIAN: Jona Guerra M.D. REASON FOR CONSULTATION: Elevated BUN and creatinine. HISTORY OF PRESENT ILLNESS: This is an 82-year-old male, who was admitted by the attending physician. The patient developed hyperkalemia and I am asked to see the patient for this reason. The patient also developed acute kidney injury. Etiology for which is probably septicemia, but currently unclear. PAST MEDICAL HISTORY: 1. Organic brain syndrome. 2. Acute MT. 3. Severe protein-calorie malnutrition. 4. CKD, etiology unclear. 5. Leukocytosis. 6. Pneumonia. MEDICATIONS: Current medications include: 1. IV fluids. 2. Tylenol as needed. 3. Baby aspirin. 4. Atorvastatin. 5. Coreg. 6. Proscar. 7. Lasix. 8. Subcutaneous heparin. 9. Insulin sliding scale. 10. Ipratropium inhalation. 11. Levaquin IV piggyback. 12. IV prednisolone. 13. Protonix. 14. Tamsulosin. ALLERGIES: No known drug allergies. SOCIAL HISTORY: Unable to obtain secondary to mental status. FAMILY HISTORY: Unable to obtain secondary to mental status. REVIEW OF SYSTEMS: Unable to obtain secondary to mental status. PHYSICAL EXAMINATION: GENERAL: This is an elderly cachectic male, who is in no acute distress. VITAL SIGNS: Blood pressure 151/95, pulse 81 and regular, respirations 20, and temperature 98.1 degrees, and O2 saturation 97% on room air. HEENT: The head is normocephalic and atraumatic. Pupils are equal, round, and reactive to light and accommodation consensually. NECK: Supple. Trachea midline. There was no lymphadenopathy or thyromegaly. LUNGS: Clear to auscultation and percussion. HEART: Regular rate and rhythm without rubs, murmurs, or gallops. ABDOMEN: Soft. Bowel sounds were active. EXTREMITIES: No clubbing, cyanosis, or edema. NEUROLOGIC: Confused. There were no lateralizing signs. LABORATORY AND ANCILLARY DATA: Hematocrit on 01/09/2017 22.9, today 29.3. ABGs PTT 56. Serum chemistry electrolyte, sodium 147, potassium 4, BUN 67, and creatinine 1.5. ASSESSMENT: 1. Chronic kidney disease, 3 to 4, etiology unclear. 2. Organic brain syndrome. 3. Acute MT. 4. Severe protein-calorie malnutrition. 5. CKD, etiology unclear. 6. Leukocytosis. 7. Pneumonia. PLAN: 1. Continue current therapy. 2. Avoid nephrotoxic medications. Thank you, Dr. Guerra and Dr. Carlos, for letting me to participate in the care of this patient. Rd Flores M.D. DR: TAYE/julio cesar JOB#: [id number] CC:
[2017-01-14 20:00] VITALS: BP 155/65
[2017-01-14] MEDS: Tamsulosin 0.4mg cap ORAL SCH (20:58)
[2017-01-15] VITALS: BP 145/76
--- NOTE | 2017-01-15 01:19 | Progress Note ---
DATE: 01/14/2017 SUBJECTIVE: The patient is without distress. Mildly short of breath. Chest x-ray continues to reveal extensive infiltrates and renal parameters have worsened. OBJECTIVE: VITAL SIGNS: Blood pressure 151/95, heart rate 81, respiratory rate 20. LUNGS: Coarse breath sounds. HEART: Regular rhythm and rate. Normal S1, S2. Fourth heart sound. ABDOMEN: Soft. EXTREMITIES: A 1+ edema. LABORATORY DATA: Sodium 147, potassium 4.0, bicarbonate 23, BUN 67, and creatinine 1.5. Albumin 2.5. Oxygen saturation 94% to 95% on room air. IMPRESSION: 1. Acute myocardial infarction. 2. Hrpqd-hk-ddadwuu diastolic congestive heart failure. 3. Extensive pneumonia. 4. Pulmonary infiltrates. 5. Severe protein-calorie malnutrition. 6. Cerebrovascular disease with dementia. 7. Wdsma-ft-upslsgt renal failure. PLAN: Hold diuresis. Continue and antianginal regimen. Continue antimicrobials, DVT prophylaxis, anti-platelet, and anti-lipid drugs. Stanislav Jain M.D. DR: Liliya JOB#: [id number] CC:
[2017-01-15 04:00] VITALS: BP 140/71
[2017-01-15 04:58] LABS: BASOPHILS % (AUTO) 0.6 % (0.0-2.0); LYMPHOCYTES % (AUTO) 11.1 % (20.0-45.0); MEAN CORPUSCULAR HEMOGLOBIN 29.4 PG (27.0-31.0); MEAN CORPUSCULAR HGB CONC 31.8 G/DL (32.0-36.0); MEAN CORPUSCULAR VOLUME 92 FL (80-99); MEAN PLATELET VOLUME 6.8 FL (6.5-10.1); MONOCYTES % (AUTO) 6.5 % (1.0-10.0); NEUTROPHILS % (AUTO) 81.7 % (45.0-75.0); PLATELET COUNT 191 K/UL (150-450); RED BLOOD COUNT 3.38 M/UL (4.70-6.10); WHITE BLOOD COUNT 8.5 K/UL (4.8-10.8)
[2017-01-15 05:34] LABS: MAGNESIUM 1.9 mg/dL (1.7-2.5)
[2017-01-15] MEDS: NovoLOG Insulin Flexpen SUBQ SCH ×3 (06:37→17:31)
[2017-01-15 06:49] LABS: ANION GAP 18 (5-15); CALCIUM 8.4 mg/dL (8.6-10.2); CARBON DIOXIDE 21 mEQ/L (20-30); CHLORIDE 108 mEQ/L (98-107); CREATININE 1.2 mg/dL (0.7-1.2); HEMOLYSIS 80; POTASSIUM 4.9 mEQ/L (3.4-4.9); SODIUM 147 mEQ/L (135-145)
--- NOTE | 2017-01-15 07:57 | Pulmonology Progress Note ---
Assessment/Plan Assessment/Plan IMPRESSION: 1. Acute myocardial infarction. 2. Elevated troponin. 3. Elevated natriuretic peptide. 4. Severe protein-calorie malnutrition. 5. Chronic renal failure. 6. Anemia. 7. Leukocytosis. 8. Pneumonia. 9. Respiratory congestion. 10. Chronic encephalopathy. 11. bronchospasm 12. pulmonary edema 13. dysphagia PLAN care noted and reviewed IV antibiotics off po levaquin IV lasix to repeat x 1 IV solumedrol dc monitor labs nutrition hope to dc pending gi clearance still with significant edema on cxr impression, plan, and exam edited and reviewed in detail care discussed with RN Subjective ROS Limited/Unobtainable: Yes Allergies: Coded Allergies: No Known Allergies (Unverified , 01/07/17) Subjective care noted reduced sob MRSA nares Objective Last 24 Hour Vital Signs Date Time Temp Pulse Resp B/P Pulse Ox O2 Delivery O2 Flow Rate FiO2 01/15/17 04:00 97.9 78 20 140/71 97 Room Air 01/15/17 04:00 70 01/15/17 00:00 70 01/15/17 00:00 97.7 70 20 145/76 97 Room Air 01/14/17 20:58 75 155/65 01/14/17 20:00 76 01/14/17 20:00 98.2 75 24 155/65 97 Room Air 01/14/17 19:34 96 Room Air 01/14/17 19:34 Room Air 01/14/17 16:00 96.8 98 17 132/74 100 Nasal Cannula 2.0 01/14/17 16:00 98 01/14/17 12:00 96.8 68 18 141/73 96 Room Air 01/14/17 12:00 68 01/14/17 08:31 81 151/95 01/14/17 08:00 98.1 81 20 151/95 97 Room Air 01/14/17 08:00 80 Intake and Output 01/14/17 01/15/17 19:00 07:00 Intake Total 480 ml 120 ml Output Total 1200 ml 1000 ml Balance -720 ml -880 ml Intake Oral 480 ml 120 ml Output Urine Total 1200 ml 1000 ml # Voids 1 # Bowel Movements 4 6 Objective GENERAL: The patient is awake, male, reduced congestion, HEENT: Temporal wasting. Oropharynx is moist. Gag present. NECK: Supple. Carotids 2+. LUNGS: no wheezes. reduced breath sounds bilaterally CARDIAC: S1 and S2. Regular rate and rhythm. Soft at the parasternal border. No rubs or gallops. ABDOMEN: Soft and nontender. No distention. no HSM EXTREMITIES: No cyanosis. No clubbing. No edema. NEUROLOGIC: Grossly nonfocal. confused Laboratory Tests 01/15/17 03:05: White Blood Count 8.5, Red Blood Count 3.38L, Hemoglobin 9.9L, Hematocrit 31.2L , Mean Corpuscular Volume 92, Mean Corpuscular Hemoglobin 29.4, Mean Corpuscular Hemoglobin Concent 31.8L, Red Cell Distribution Width 14.0, Platelet Count 191, Mean Platelet Volume 6.8, Neutrophils (%) (Auto) 81.7H, Lymphocytes (%) (Auto) 11.1L, Monocytes (%) (Auto) 6.5, Eosinophils (%) (Auto) 0.0, Basophils (%) (Auto) 0.6, Sodium Level 147H, Potassium Level 4.9, Chloride Level 108H, Carbon Dioxide Level 21, Anion Gap 18H, Blood Urea Nitrogen 54H, Creatinine 1.2, Estimat Glomerular Filtration Rate , Glucose Level 279H, Calcium Level 8.4L, Magnesium Level 1.9, Pro-B-Type Natriuretic Peptide 13485N Current Medications Medications (Trade) Dose Ordered Sig/Subhash Route PRN Reason Start Time Stop Time Status Last Admin Dose Admin Acetaminophen (Tylenol) 650 mg Q6H PRN ORAL Mild Pain/Temp > 100.5 01/08/17 20:45 02/07/17 20:44 01/11/17 13:51 Albuterol/ Ipratropium (DuoNeb 0.5-3(2.5)mg/3ml) 3 ml Q6HRT PRN HHN Shortness of Breath 01/10/17 13:00 01/15/17 12:59 01/11/17 01:30 Aspirin (ASA) 81 mg DAILY ORAL 01/08/17 09:00 02/07/17 08:59 01/14/17 08:30 Atorvastatin Calcium (Lipitor) 10 mg BEDTIME ORAL 01/07/17 21:00 02/06/17 20:59 01/14/17 20:58 Carvedilol (Coreg) 25 mg EVERY 12 HOURS ORAL 01/13/17 21:00 02/12/17 20:59 01/14/17 20:58 Dextrose (Dextrose 50%) STAT PRN IV Hypoglycemia 01/07/17 18:15 02/06/17 18:14 Finasteride (Proscar) 5 mg DAILY ORAL 01/08/17 09:00 02/07/17 08:59 01/14/17 08:31 Heparin Sodium (Porcine) (Heparin 5000 units/ml) 5,000 units EVERY 12 HOURS SUBQ 01/11/17 09:00 02/10/17 08:59 01/14/17 20:59 Insulin Aspart (NovoLOG) BEFORE MEALS AND HS SUBQ 01/07/17 21:00 02/06/17 20:59 01/15/17 06:37 Levofloxacin (Levaquin) 750 mg Q48H ORAL 01/13/17 13:00 01/20/17 12:59 01/13/17 12:25 Pantoprazole (Protonix) 40 mg DAILY ORAL 01/08/17 09:00 02/07/17 08:59 01/14/17 08:31 Tamsulosin HCl (Flomax) 0.4 mg BEDTIME ORAL 01/07/17 21:00 02/06/17 20:59 01/14/17 20:58 REJI OJEDA January 15, 2017 07:57
[2017-01-15 08:00] VITALS: BP 145/77
--- NOTE | 2017-01-15 08:42 | General Progress Note ---
Assessment/Plan Problem List: (1) Hyperkalemia, diminished renal excretion ICD Codes: E87.5 - Hyperkalemia SNOMED: 52673867 (2) Pneumonia ICD Codes: J18.9 - Pneumonia, unspecified organism SNOMED: 999095758 Qualifiers: Qualified Codes: J18.9 - Pneumonia, unspecified organism (3) ARF (acute renal failure) ICD Codes: N17.9 - Acute kidney failure, unspecified SNOMED: 66545504 Qualifiers: Qualified Codes: N17.9 - Acute kidney failure, unspecified (4) Severe sepsis ICD Codes: A41.9 - Sepsis, unspecified organism; R65.20 - Severe sepsis without septic shock SNOMED: 93766787 (5) NSTEMI (non-ST elevated myocardial infarction) ICD Codes: I21.4 - Non-ST elevation (NSTEMI) myocardial infarction; R65.20 - Severe sepsis without septic shock SNOMED: 879313780 Status: stable, progressing Assessment/Plan iv abx diuresis cardiac rx monitor cxr resp care o2 antiplt rx dvt/stress ulcer prophylaxis tele steroids off monitor lytes/volume status- push h20 monitor lytes Subjective ROS Limited/Unobtainable: No Constitutional: Reports: malaise HEENT: Reports: no symptoms Cardiovascular: Reports: no symptoms Respiratory: Reports: shortness of breath Gastrointestinal/Abdominal: Reports: difficulty swallowing Genitourinary: Reports: no symptoms Neurologic/Psychiatric: Reports: pre-existing deficit Endocrine: Reports: no symptoms Hematologic/Lymphatic: Reports: anemia Allergies: Coded Allergies: No Known Allergies (Unverified , 01/07/17) All Systems: reviewed and negative except above Subjective no new complaints. increased bun/cr. compliant with care. mild sob. sats normal on room air. cxr with extensive infiltrates. on iv lasix. pulm and cards noted. sodium remains elevated. failed swallow eval yesterday. Objective Last 24 Hour Vital Signs Date Time Temp Pulse Resp B/P Pulse Ox O2 Delivery O2 Flow Rate FiO2 01/15/17 08:00 97.7 71 20 145/77 96 Room Air 01/15/17 04:00 97.9 78 20 140/71 97 Room Air 01/15/17 04:00 70 01/15/17 00:00 70 01/15/17 00:00 97.7 70 20 145/76 97 Room Air 01/14/17 20:58 75 155/65 01/14/17 20:00 76 01/14/17 20:00 98.2 75 24 155/65 97 Room Air 01/14/17 19:34 96 Room Air 01/14/17 19:34 Room Air 01/14/17 16:00 96.8 98 17 132/74 100 Nasal Cannula 2.0 01/14/17 16:00 98 01/14/17 12:00 96.8 68 18 141/73 96 Room Air 01/14/17 12:00 68 Intake and Output 01/14/17 01/15/17 19:00 07:00 Intake Total 480 ml 120 ml Output Total 1200 ml 1000 ml Balance -720 ml -880 ml Intake Oral 480 ml 120 ml Output Urine Total 1200 ml 1000 ml # Voids 1 # Bowel Movements 4 6 Laboratory Tests 01/15/17 03:05: White Blood Count 8.5, Red Blood Count 3.38L, Hemoglobin 9.9L, Hematocrit 31.2L , Mean Corpuscular Volume 92, Mean Corpuscular Hemoglobin 29.4, Mean Corpuscular Hemoglobin Concent 31.8L, Red Cell Distribution Width 14.0, Platelet Count 191, Mean Platelet Volume 6.8, Neutrophils (%) (Auto) 81.7H, Lymphocytes (%) (Auto) 11.1L, Monocytes (%) (Auto) 6.5, Eosinophils (%) (Auto) 0.0, Basophils (%) (Auto) 0.6, Sodium Level 147H, Potassium Level 4.9, Chloride Level 108H, Carbon Dioxide Level 21, Anion Gap 18H, Blood Urea Nitrogen 54H, Creatinine 1.2, Estimat Glomerular Filtration Rate , Glucose Level 279H, Calcium Level 8.4L, Magnesium Level 1.9, Pro-B-Type Natriuretic Peptide 55936W Height (Feet): 5 Height (Inches): 9.00 Weight (Pounds): 170 Objective General Appearance: WD/WN, alert Neck: supple Cardiovascular: regular rhythm Respiratory/Chest: expiratory wheezing but less Abdomen: normal bowel sounds, non tender, soft, no organomegaly Lymphatic: normal anterior cervical (L), normal anterior cervical (R), normal axillary (L), normal axillary (R), normal inguinal (L), normal inguinal (R), normal other, normal posterior cervical (L), normal posterior cervical (R), normal submandibular (L), normal submandibular (R), normal supraclavicular (L), normal supraclavicular (R) WENDIE CASTELLANOS January 15, 2017 08:42
[2017-01-15] MEDS: Heparin 5000 units/ml inj SUBQ SCH (09:47)
[2017-01-15] MEDS: Aspirin Baby 81mg ORAL SCH (09:48)
[2017-01-15] MEDS: Carvedilol 25mg Tab ORAL SCH (09:49)
--- NOTE | 2017-01-15 10:14 | Diagnostic Imaging Report ---
Indication:Elevated Bun and Creatinine. Technique: Grayscale and duplex Doppler imaging of the kidneys performed. Comparison: None Findings: The size, contour, and echogenicity of both kidneys are within normal limits. Right kidney is 10.7 CM. Left kidney 11.1 CM. There are bilateral renal cysts present. For example the left kidney there is a 1.9 cm cyst noted and a 7.2 cm cyst demonstrated. In the right kidney the largest cyst 5.3 cm in the upper pole. This cyst has septations and should be further evaluated with contrast imaging such as contrast CT or MR. There is no hydronephrosis. IVC is poorly seen. The urinary bladder is distended. There are trabeculations within the bladder wall. Impression: No evidence of obstructive nephropathy. Multiple bilateral cysts. Trabeculated bladder. Cystitis likely present.
--- NOTE | 2017-01-15 11:48 | Diagnostic Imaging Report ---
Indication: Dyspnea Comparison: 01/14/17 A single view chest radiograph was obtained. Findings: Patchy infiltrates versus pulmonary edema again demonstrated with asymmetric disease predominating in the upper lobes. Cardiomegaly is stable. Pacemaker is noted. Impression: No significant blade changer the last day
--- NOTE | 2017-01-15 11:56 | Infectious Diseases Prog Note ---
Assessment/Plan Assessment/Plan A: 1. pneumonia 2. renal failure improving 3. dementia 4. Non ST MD 5. leucocytosis resolved 6. MRSA colonization P 1. continue Levaquin X 1 day Subjective ROS Limited/Unobtainable: Yes Allergies: Coded Allergies: No Known Allergies (Unverified , 01/07/17) Objective Vital Signs Last 24 Hour Vital Signs Date Time Temp Pulse Resp B/P Pulse Ox O2 Delivery O2 Flow Rate FiO2 01/15/17 09:49 71 145/77 01/15/17 08:00 97.7 71 20 145/77 96 Room Air 01/15/17 04:00 97.9 78 20 140/71 97 Room Air 01/15/17 04:00 70 01/15/17 00:00 70 01/15/17 00:00 97.7 70 20 145/76 97 Room Air 01/14/17 20:58 75 155/65 01/14/17 20:00 76 01/14/17 20:00 98.2 75 24 155/65 97 Room Air 01/14/17 19:34 96 Room Air 01/14/17 19:34 Room Air 01/14/17 16:00 96.8 98 17 132/74 100 Nasal Cannula 2.0 01/14/17 16:00 98 01/14/17 12:00 96.8 68 18 141/73 96 Room Air 01/14/17 12:00 68 Height (Feet): 5 Height (Inches): 9.00 Weight (Pounds): 170 General Appearance: no acute distress HEENT: mucous membranes moist Respiratory/Chest: lungs clear, rhonchi - left Cardiovascular: normal rate Abdomen: soft, non tender Extremities: no edema Neurologic/Psychiatric: alert, responsive, disoriented Laboratory Tests Test 01/15/17 03:05 White Blood Count 8.5 K/UL (4.8-10.8) Red Blood Count 3.38 M/UL (4.70-6.10) L Hemoglobin 9.9 G/DL (14.2-18.0) L Hematocrit 31.2 % (42.0-52.0) L Mean Corpuscular Volume 92 FL (80-99) Mean Corpuscular Hemoglobin 29.4 PG (27.0-31.0) Mean Corpuscular Hemoglobin Concent 31.8 G/DL (32.0-36.0) L Red Cell Distribution Width 14.0 % (11.6-14.8) Platelet Count 191 K/UL (150-450) Mean Platelet Volume 6.8 FL (6.5-10.1) Neutrophils (%) (Auto) 81.7 % (45.0-75.0) H Lymphocytes (%) (Auto) 11.1 % (20.0-45.0) L Monocytes (%) (Auto) 6.5 % (1.0-10.0) Eosinophils (%) (Auto) 0.0 % (0.0-3.0) Basophils (%) (Auto) 0.6 % (0.0-2.0) Sodium Level 147 mEQ/L (135-145) H Potassium Level 4.9 mEQ/L (3.4-4.9) Chloride Level 108 mEQ/L (98-107) H Carbon Dioxide Level 21 mEQ/L (20-30) Anion Gap 18 (5-15) H Blood Urea Nitrogen 54 mg/dL (7-23) H Creatinine 1.2 mg/dL (0.7-1.2) Estimat Glomerular Filtration Rate mL/min (>60) Glucose Level 279 mg/dL (74-106) H Calcium Level 8.4 mg/dL (8.6-10.2) L Magnesium Level 1.9 mg/dL (1.7-2.5) Pro-B-Type Natriuretic Peptide 80335 pg/mL (0-450) H Current Medications Medications (Trade) Dose Ordered Sig/Subhash Route PRN Reason Start Time Stop Time Status Last Admin Dose Admin Acetaminophen (Tylenol) 650 mg Q6H PRN ORAL Mild Pain/Temp > 100.5 01/08/17 20:45 02/07/17 20:44 01/11/17 13:51 Albuterol/ Ipratropium (DuoNeb 0.5-3(2.5)mg/3ml) 3 ml Q6HRT PRN HHN Shortness of Breath 01/10/17 13:00 01/15/17 12:59 01/11/17 01:30 Aspirin (ASA) 81 mg DAILY ORAL 01/08/17 09:00 02/07/17 08:59 01/15/17 09:48 Atorvastatin Calcium (Lipitor) 10 mg BEDTIME ORAL 01/07/17 21:00 02/06/17 20:59 01/14/17 20:58 Carvedilol (Coreg) 25 mg EVERY 12 HOURS ORAL 01/13/17 21:00 02/12/17 20:59 01/15/17 09:49 Dextrose (Dextrose 50%) STAT PRN IV Hypoglycemia 01/07/17 18:15 02/06/17 18:14 Finasteride (Proscar) 5 mg DAILY ORAL 01/08/17 09:00 02/07/17 08:59 01/15/17 09:48 Heparin Sodium (Porcine) (Heparin 5000 units/ml) 5,000 units EVERY 12 HOURS SUBQ 01/11/17 09:00 02/10/17 08:59 01/15/17 09:47 Insulin Aspart (NovoLOG) BEFORE MEALS AND HS SUBQ 01/07/17 21:00 02/06/17 20:59 01/15/17 11:52 Levofloxacin (Levaquin) 750 mg Q48H ORAL 01/13/17 13:00 01/20/17 12:59 01/13/17 12:25 Pantoprazole (Protonix) 40 mg DAILY ORAL 01/08/17 09:00 02/07/17 08:59 01/15/17 09:48 Tamsulosin HCl (Flomax) 0.4 mg BEDTIME ORAL 01/07/17 21:00 02/06/17 20:59 01/14/17 20:58 ABDOULAYE ALFONSO January 15, 2017 11:56
[2017-01-15 12:00] VITALS: BP 146/71
[2017-01-15 16:00] VITALS: BP 144/78
--- NOTE | 2017-01-15 17:19 | Nephrology Progress Note ---
Assessment/Plan Plan Sepsis - IV Abx ALE on CKD - stable Subjective Subjective No c/o Objective Objective Last 24 Hour Vital Signs Date Time Temp Pulse Resp B/P Pulse Ox O2 Delivery O2 Flow Rate FiO2 01/15/17 16:00 97.8 70 20 144/78 97 Room Air 01/15/17 12:00 97.9 67 18 146/71 96 Room Air 01/15/17 12:00 64 01/15/17 09:49 71 145/77 01/15/17 08:00 68 01/15/17 08:00 97.7 71 20 145/77 96 Room Air 01/15/17 04:00 97.9 78 20 140/71 97 Room Air 01/15/17 04:00 70 01/15/17 00:00 70 01/15/17 00:00 97.7 70 20 145/76 97 Room Air 01/14/17 20:58 75 155/65 01/14/17 20:00 76 01/14/17 20:00 98.2 75 24 155/65 97 Room Air 01/14/17 19:34 96 Room Air 01/14/17 19:34 Room Air Intake and Output 01/14/17 01/15/17 19:00 07:00 Intake Total 480 ml 120 ml Output Total 1200 ml 1000 ml Balance -720 ml -880 ml Intake Oral 480 ml 120 ml Output Urine Total 1200 ml 1000 ml # Voids 1 # Bowel Movements 4 6 Laboratory Tests 01/15/17 03:05: White Blood Count 8.5, Red Blood Count 3.38L, Hemoglobin 9.9L, Hematocrit 31.2L , Mean Corpuscular Volume 92, Mean Corpuscular Hemoglobin 29.4, Mean Corpuscular Hemoglobin Concent 31.8L, Red Cell Distribution Width 14.0, Platelet Count 191, Mean Platelet Volume 6.8, Neutrophils (%) (Auto) 81.7H, Lymphocytes (%) (Auto) 11.1L, Monocytes (%) (Auto) 6.5, Eosinophils (%) (Auto) 0.0, Basophils (%) (Auto) 0.6, Sodium Level 147H, Potassium Level 4.9, Chloride Level 108H, Carbon Dioxide Level 21, Anion Gap 18H, Blood Urea Nitrogen 54H, Creatinine 1.2, Estimat Glomerular Filtration Rate , Glucose Level 279H, Calcium Level 8.4L, Magnesium Level 1.9, Pro-B-Type Natriuretic Peptide 44540D Height (Feet): 5 Height (Inches): 9.00 Weight (Pounds): 170 Objective CV RR Lungs B Marguerite GONZALEZT. BS + E No CCE NERIS ROQUE January 15, 2017 17:19
[2017-01-15] MEDS ORDERED: NS 275ml ONE (19:29)
--- NOTE | 2017-01-15 22:45 | General Progress Note ---
Assessment/Plan Assessment/Plan GI Dictated Thank you Alessia Chaves MD Subjective Allergies: Coded Allergies: No Known Allergies (Unverified , 01/07/17) Objective Last 24 Hour Vital Signs Date Time Temp Pulse Resp B/P Pulse Ox O2 Delivery O2 Flow Rate FiO2 01/15/17 19:30 95 Room Air 01/15/17 19:30 Room Air 01/15/17 16:00 68 01/15/17 16:00 97.8 70 20 144/78 97 Room Air 01/15/17 12:00 97.9 67 18 146/71 96 Room Air 01/15/17 12:00 64 01/15/17 09:49 71 145/77 01/15/17 08:00 68 01/15/17 08:00 97.7 71 20 145/77 96 Room Air 01/15/17 04:00 97.9 78 20 140/71 97 Room Air 01/15/17 04:00 70 01/15/17 00:00 70 01/15/17 00:00 97.7 70 20 145/76 97 Room Air Intake and Output 01/14/17 01/15/17 19:00 07:00 Intake Total 480 ml 120 ml Output Total 1200 ml 1000 ml Balance -720 ml -880 ml Intake Oral 480 ml 120 ml Output Urine Total 1200 ml 1000 ml # Voids 1 # Bowel Movements 4 6 Laboratory Tests 01/15/17 03:05: White Blood Count 8.5, Red Blood Count 3.38L, Hemoglobin 9.9L, Hematocrit 31.2L , Mean Corpuscular Volume 92, Mean Corpuscular Hemoglobin 29.4, Mean Corpuscular Hemoglobin Concent 31.8L, Red Cell Distribution Width 14.0, Platelet Count 191, Mean Platelet Volume 6.8, Neutrophils (%) (Auto) 81.7H, Lymphocytes (%) (Auto) 11.1L, Monocytes (%) (Auto) 6.5, Eosinophils (%) (Auto) 0.0, Basophils (%) (Auto) 0.6, Sodium Level 147H, Potassium Level 4.9, Chloride Level 108H, Carbon Dioxide Level 21, Anion Gap 18H, Blood Urea Nitrogen 54H, Creatinine 1.2, Estimat Glomerular Filtration Rate , Glucose Level 279H, Calcium Level 8.4L, Magnesium Level 1.9, Pro-B-Type Natriuretic Peptide [id number] Height (Feet): 5 Height (Inches): 9.00 Weight (Pounds): 170 ALESSIA CHAVES January 15, 2017 22:45
--- NOTE | 2017-01-16 04:59 | Consultation ---
DATE OF CONSULTATION: 01/15/2017 NOTE: POOR AUDIO QUALITY GASTROENTEROLOGY CONSULTATION REPORT: CHIEF COMPLAINT: I was asked to see this patient by Dr. Jona Guerra for evaluation of dysphagia and anemia. HISTORY OF PRESENT ILLNESS: The patient is an unfortunate 81-year-old man with multiple medical problems, who was admitted to the hospital from the [facility] with breathing problems pneumonia. The patient has been treated successfully and a swallow study has been done. The summary is also available in the chart, but basically in summary, the patient has very marginal ability to swallow with some degree of risk for aspiration. The patient discussed his matter with the patient's family at length and they have chosen to continue with oral feeding and not with gastrostomy tube. At this time, the gastrostomy tube is the patient has been interested . I have personally also discussed the matter with the patient's [id number] that she wants to continue the patient on oral diet and not to proceed with a gastrostomy tube feeding. In addition, the patient has been found to have some degree of anemia and he has not had a colonoscopy for at least five years. I have discussed with the patient's daughter. The differential diagnosis age group. Daughter said that the family will think about it and they chose to have a gastrointestinal workup during their followup with me in my office after discharge. However, at this time, the patient gastrointestinal workup prior to the colonoscopy. The patient himself has some degree of advanced dementia and is unable to provide any useful history. Most of the information is only available from this patient 's family and also we reviewed in the chart for detail . PAST MEDICAL HISTORY: History of hypertension, hypertensive heart disease, diabetes, ischemic cardiomyopathy, dementia, renal insufficiency, and benign prostatic hypertrophy. MEDICATIONS: See chart list for details. ALLERGIES: None. SOCIAL HISTORY: The patient has had no history of smoking or drinking. FAMILY HISTORY: Noncontributory. REVIEW OF SYSTEMS: Otherwise unobtainable. PHYSICAL EXAMINATION: GENERAL: The patient is a debilitated man, seen in his room. He appeared confused and moaning. HEENT: Normocephalic and atraumatic. Sclerae anicteric. Oropharynx clear. NECK: Supple. CHEST: Clear to auscultation. CARDIOVASCULAR: Revealed a regular rate. ABDOMEN: Soft and nontender. Good bowel sounds. EXTREMITIES: Revealed no edema. LABORATORY DATA: Noted. ASSESSMENT: This patient has a significant degree of anemia , but at this time, no workup was planned per family's wishes. They will follow up with me in my office should they change their mind with respect to the workup. In addition, the patient's family also wanted to continue with oral feeding despite risk involved the patient has advanced dementia and debilitated and that level of care should be matched to the patient's health status. For that reason, the patient should be continued on his oral diet with aspiration precautions and careful feeding and proper consistency of diet. He can be discharged to the custodial for further evaluation. His blood count can be monitored as an outpatient and further adjustments in his treatment regimen can be made as needed. RECOMMENDATIONS: Per above discussion and per orders written in the chart. Thank you for asking me to participate in care of this patient. Alessia Chaves M.D. DR: Khanh JOB#: [id number] CC:
--- NOTE | 2017-01-17 03:59 | Progress Note ---
DATE: 01/15/2017 CARDIOLOGY PROGRESS NOTE: SUBJECTIVE: The patient without chest pain or shortness of breath. He continues to receive diuretics, antibiotics, and respiratory hygiene. He failed a swallow evaluation. Chest x-ray reveals pulmonary infiltrates. OBJECTIVE: VITAL SIGNS: Blood pressure 146/71, pulse 64, and respirations 18. NECK: Supple. LUNGS: With few rales. CARDIAC: Regular rhythm and rate. Normal S1, S2 with a fourth heart sound. ABDOMEN: Soft. EXTREMITIES: No edema. LABORATORY DATA: Labs noted. IMPRESSION: 1. Acute myocardial infarction. 2. Dysphagia. 3. Nosocomial pneumonia. 4. Dehydration. 5. Hypernatremia. 6. Prerenal azotemia post diuresis . 7. Acute on chronic diastolic congestive heart failure. 8. Severe protein-calorie malnutrition. 9. Hyperglycemia. PLAN: Speech therapy. feeding tube. Continue to advance insulin coverage. Increase free water intake. Hold diuresis until free water deficit corrected. Maintain anti-platelet therapy, beta blockade, and statin drug. Stanislav Jain M.D. DR: Norberto JOB#: [id number] CC:
--- NOTE | 2017-01-17 10:48 | Discharge Summary ---
Discharge Summary Hospital Course Date of Admission January 07, 2017 at 15:07 Date of Discharge January 15, 2017 at 19:30 Admitting Diagnosis cough, fever, PNA HPI Daniel Kruger is a 82 year old male who was admitted on January 07, 2017 at 15: 07 for Cough,Fever,Pneumonia Hospital Course [id number] Discharge Discharge Disposition Patient was discharged to SNF/Subacute Facility(03) Discharge Diagnoses: Jeanie Gonzalez NP January 17, 2017 10:48
--- NOTE | 2017-01-18 03:09 | Discharge Summary 2 SIG ---
DATE OF ADMISSION: 01/07/2017 DATE OF DISCHARGE: 01/15/2017 CONSULTANTS: 1. Stanislav Jain M.D. 2. Alessia Chaves M.D. 3. Rd Flores M.D. 4. Rajeev Carlos M.D. 5. Ba Clemente M.D. BRIEF HOSPITAL COURSE: The patient is an 82-year-old male, who resides in [facility], who was transferred with complaints of shortness of breath. On evaluation at the emergency room, the patient was noted to have elevated troponin. Initial troponin level was 2.9. Chest x-ray also showed evidence of pneumonia. He also had atrial fibrillation with RVR. He was admitted for IV antibiotics and anti-platelet therapy and was started on heparin drip. Dr. Jain was consulted. The patient was continued on anticoagulation. Cardiac enzymes were monitored and was diagnosed with acute IA. He was given beta-blockers, aspirin and Lipitor. Dr. Clemente was consulted. The patient was given IV cefepime. Blood cultures did not isolate any growth. Serial chest x-rays were done. He had an episode of acute anemia. Hemoglobin went down to 7.7, and received two units of packed RBC blood transfusion. Dr. Chaves was consulted, but no workup was planned per family wishes. He was also followed by Dr. 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 Renal ultrasound showed no evidence of obstructive nephropathy. Antibiotic was switched to p.o. Levaquin. Intravenous Solu-Medrol was discontinued. The patient was eventually [facility] to [facility]. FINAL DIAGNOSES: 1. Acute myocardial infarction. 2. Severe protein-calorie malnutrition. 3. Acute on chronic diastolic congestive heart failure. 4. Dehydration. 5. Hypernatremia. 6. Acute anemia requiring blood transfusion. 7. Acute kidney injury on chronic kidney disease. 8. Pneumonia. 9. Pulmonary edema. 10. Dysphagia. Jona Guerra M.D. I have been assigned to dictate discharge summary on this account and I was not involved in the patient's management. Jeanie Gonzalez N.P. DR: RON JOB#: [id number] CC:
== END 2017-01-15 19:30 | DRG 280 ==
LOC: EDBD 14:06 → EMR 14:16 → 2W 15:07 → EDBEDREQ 15:49 → EDBEDREQSVC 15:49 → EDBEDREQ 15:52 → 2W 16:44
PROC: 30233N1 Transfusion of Nonautologous Red Blood Cells into Peripheral Vein, Percutaneous Approach (ICD-10-PCS; principal; 2017-01-09)
DX: I21.3 ST elevation (STEMI) myocardial infarction of unspecified site (principal); I50.33 Acute on chronic diastolic (congestive) heart failure; N17.0 Acute kidney failure with tubular necrosis; E43 Unspecified severe protein-calorie malnutrition; J18.9 Pneumonia, unspecified organism; G93.40 Encephalopathy, unspecified; N18.4 Chronic kidney disease, stage 4 (severe); F03.90 Unspecified dementia, unspecified severity, without behavioral disturbance, psychotic disturbance, mood disturbance, and anxiety; I13.0 Hypertensive heart and chronic kidney disease with heart failure and stage 1 through stage 4 chronic kidney disease, or unspecified chronic kidney disease; E87.5 Hyperkalemia; Z95.0 Presence of cardiac pacemaker; N18.9 Chronic kidney disease, unspecified; I48.91 Unspecified atrial fibrillation; I25.5 Ischemic cardiomyopathy; E11.9 Type 2 diabetes mellitus without complications; E86.0 Dehydration; R13.10 Dysphagia, unspecified; N40.0 Benign prostatic hyperplasia without lower urinary tract symptoms; F01.50 Vascular dementia, unspecified severity, without behavioral disturbance, psychotic disturbance, mood disturbance, and anxiety; Z79.4 Long term (current) use of insulin; D63.1 Anemia in chronic kidney disease; I25.10 Atherosclerotic heart disease of native coronary artery without angina pectoris; E83.42 Hypomagnesemia; Z22.322 Carrier or suspected carrier of Methicillin resistant Staphylococcus aureus
CPT/HCPCS: 36415; 71010; 74230; 76775; 80048; 80053; 80061; 80202; 82270; 82550; 82553; 82962; 83605; 83735; 83880; 84100; 84443; 84484; 85007; 85025; 85610; 85730; 86850; 86900; 86901; 86920; 87040; 87081; 93005; 93306; 94640; 94664; 94760; J1815; J7620; J8499

== ENCOUNTER 2017-03-01 22:35 | Inpatient (IN) | payer MEDICARE, OTHER ==
[~2017-03-01] VITALS: Ht 177.8 cm; Wt 72.6 kg
[~2017-03-01 22:35] MED LIST: ATORVASTATIN CA10 MG ORAL; CARVEDILOL3.125 MG ORAL; DOCUSATE SODIU250 MG ORAL; FERROUS SULFAT325 MG ORAL; GLUCOPHAGE850 MG ORAL; JANUVIA50 MG ORAL; LISINOPRIL5 MG ORAL; METFORMIN HCL850 M1 ORAL; NOVOLOG100 UNIT/3 SUBQ; PROSCAR5 MG ORAL; PROTONIX20 MG ORAL; TAMSULOSIN HCL0.4 MG ORAL; TRAZODONE HCL50 MG ORAL; ZOLPIDEM TARTRAT5 MG ORAL
[2017-03-01 22:45] VITALS: BP 107/45
[2017-03-01] MEDS ORDERED: Acetaminophen 650 MG SUPP RECTAL ONE (23:00)
[2017-03-01] MEDS ORDERED: NS 1000ml 2,200 ML IVLG ONE (23:00)
[2017-03-01] MEDS ORDERED: Piperacillin/Tazobactam 3.375 GM in NS 110 ML IVPB ONE (23:30)
[2017-03-01 23:31] LABS: BASOPHILS % (AUTO) 0.4 % (0.0-2.0); EOSINOPHILS % (AUTO) 0.2 % (0.0-3.0); LYMPHOCYTES % (AUTO) 19.3 % (20.0-45.0); MEAN CORPUSCULAR HEMOGLOBIN 30.2 PG (27.0-31.0); MEAN CORPUSCULAR HGB CONC 33.7 G/DL (32.0-36.0); MEAN CORPUSCULAR VOLUME 90 FL (80-99); MONOCYTES % (AUTO) 8.3 % (1.0-10.0); NEUTROPHILS % (AUTO) 71.9 % (45.0-75.0); PLATELET COUNT 263 K/UL (150-450); RED CELL DISTRIBUTION WIDTH 13.9 % (11.6-14.8); WHITE BLOOD COUNT 14.2 K/UL (4.8-10.8)
[2017-03-01 23:40] LABS: INR 1.1 (0.9-1.1); PROTHROMBIN TIME 11.7 SEC (9.30-11.50)
[2017-03-01 23:49] LABS: TROPONIN I < 0.30 ng/mL (<=0.30)
[2017-03-01 23:52] LABS: ALANINE AMINOTRANSFERASE 17 U/L (3-41); ALBUMIN/GLOBULIN RATIO 0.7 (1.0-2.7); ANION GAP 19 (5-15); ASPARTATE AMINO TRANSFERASE 38 U/L (5-40); CALCIUM 9.3 mg/dL (8.6-10.2); CARBON DIOXIDE 22 mEQ/L (20-30); CHLORIDE 98 mEQ/L (98-107); CREATININE 1.6 mg/dL (0.7-1.2); HEMOLYSIS 1; POTASSIUM 4.5 mEQ/L (3.4-4.9); SODIUM 139 mEQ/L (135-145); TOTAL PROTEIN 7.4 g/dL (6.6-8.7)
[2017-03-01 23:57] LABS: REFLEX LACTIC ACID YES OR NO YES
[2017-03-02] VITALS (7 sets, daily range): BP systolic 120–145; BP diastolic 52–85
[2017-03-02 00:03] LABS: CKMB 11.8 ng/mL (< 6.7)
[2017-03-02] MEDS ORDERED: Zosyn 3.375gm inj ONE (00:17)
[2017-03-02 00:36] LABS: KETONES,URINE NEGATIVE (NEGATIVE); LEUKOCYTE ESTERASE ,URINE 3+ (NEGATIVE); NITRITE,URINE NEGATIVE (NEGATIVE); PH,URINE 6 (4.5-8.0); PROTEIN,URINE 3+ (NEGATIVE); UROBILINOGEN,URINE NORMAL MG/DL (0.0-1.0)
[2017-03-02 00:51] LABS: APPEARANCE,URINE TURBID
[2017-03-02 00:53] LABS: BACTERIA,URINE MANY /HPF; WBC,URINE TNTC /HPF (0 - 0)
[2017-03-02] MEDS ORDERED: ZOLPIDEM TARTRAT5 MG ORAL (01:08)
[2017-03-02] MEDS ORDERED: PROSCAR5 MG GT (01:08)
[2017-03-02] MEDS ORDERED: ATORVASTATIN CA20 MG ORAL (01:08)
[2017-03-02] MEDS ORDERED: PANTOPRAZOLE SO40 MG GT (01:08)
[2017-03-02] MEDS ORDERED: TRAZODONE HCL100 MG GT (01:08)
[2017-03-02] MEDS ORDERED: METFORMIN HCL850 M1 GT (01:08)
[2017-03-02] MEDS ORDERED: JANUVIA25 MG GT (01:08)
[2017-03-02] MEDS ORDERED: CARVEDILOL25 MG GT (01:08)
[2017-03-02] MEDS ORDERED: NOVOLOG100 UNIT/3 SUBQ (01:08)
[2017-03-02] MEDS ORDERED: FLOMAX0.4 MG GT (01:08)
[2017-03-02] MEDS ORDERED: ACETAMINOPHEN325 M1 ORAL (01:08)
[2017-03-02] MEDS ORDERED: GLYTROL250 ML GT (01:08)
[2017-03-02] MEDS ORDERED: NORCO 5-325 TA1 EAC1 GT (01:08)
[2017-03-02] MEDS ORDERED: REGLAN10 MG GT (01:08)
[2017-03-02] MEDS ORDERED: DOCUSATE SODIU250 MG GT (01:08)
--- NOTE | 2017-03-02 01:12 | Emergency Room Report ---
History of Present Illness General Chief Complaint: Fever Source: Family Member, Medical Record Present Illness HPI Is an 82-year-old male coming from shelter. He has multiple medical problem including aspiration pneumonia, diabetes, hypertension. He is a full code and has a G-tube. He presents with chief when a fever and congestion. Onset tonight. History is from the shelter note. Patient unable to give a history. He present with some is symptom in the past. Allergies: Coded Allergies: No Known Allergies (Unverified , 01/07/17) Patient History Past Medical History: see triage record, old chart reviewed Past Surgical History: other Pertinent Family History: other Social History: Denies: smoking Immunizations: other Reviewed Nursing Documentation: PMH: Agreed, PSxH: Agreed Nursing Documentation-PMH Hx Cardiac Problems: Yes - Atherosclerotic heart Ds. of [place] coronary Hx Hypertension: Yes - Anemia Hx Pacemaker: Yes Hx Diabetes: Yes Hx Cancer: No Hx Dementia: Yes Review of Systems Constitutional: Reports: fever, weakness Respiratory: Reports: cough All Other Systems: limited - Secondary to his condition and nonverbal state Physical Exam Vital Signs Date Time Temp Pulse Resp B/P Pulse Ox O2 Delivery O2 Flow Rate FiO2 03/01/17 22:30 99.3 82 18 130/65 98 Room Air vitals with low-grade fever Sp02 EP Interpretation: reviewed, normal General Appearance: alert, mild distress, Chronically Ill Head: normocephalic, atraumatic Eyes: bilateral eye EOMI, bilateral eye PERRL ENT: hearing grossly normal, dry mucus membranes Neck: full range of motion, supple, no meningismus Respiratory: chest non-tender, crackles, rhonchi Cardiovascular #1: regular rate, rhythm, no murmur Gastrointestinal: normal bowel sounds, non tender, no mass, no organomegaly, no bruit, non-distended Musculoskeletal: back normal, normal range of motion Neurologic: grossly normal Psychiatric: mood/affect normal Skin: warm/dry Procedures Critical Care Time Critical Care Time Critical care is mandated in this patient who presented with sepsis from UTI and pneumonia. Patient require my urgent intervention to attenuate the risks of metabolic collapse which may lead to cardiovascular collapse and . Critical care time is 35 minutes excluding any reportable procedure. Critical care time included evaluation, multiple reevaluation, looking at old charts, interpreting laboratory and diagnostic data, discussing case with patient and family and consultants, and charting. Medical Decision Making Diagnostic Impression: Primary Impression: Sepsis Qualified Codes: A41.9 - Sepsis, unspecified organism Additional Impressions: Pneumonia Qualified Codes: J18.9 - Pneumonia, unspecified organism UTI (urinary tract infection) Qualified Codes: N30.00 - Acute cystitis without hematuria Dehydration ALE (acute kidney injury) Encephalopathy acute Proteinuria Qualified Codes: R80.9 - Proteinuria, unspecified Anemia in chronic illness ER Course Patient presents with fever and has sepsis secondary to pneumonia and UTI. Urine is very cloudy and purulent. Him he does not want a Banda because patient keeps pulling out in the past. Present and normal here. Wide spectrum antibiotics given. Patient be admitted for IV antibiotics, hydration and further workup. I discussed the case with Dr. Jain who will admit for the group. Laboratory Tests Test 03/01/17 23:10 03/02/17 00:15 White Blood Count 14.2 K/UL (4.8-10.8) H Red Blood Count 3.20 M/UL (4.70-6.10) L Hemoglobin 9.7 G/DL (14.2-18.0) L Hematocrit 28.7 % (42.0-52.0) L Mean Corpuscular Volume 90 FL (80-99) Mean Corpuscular Hemoglobin 30.2 PG (27.0-31.0) Mean Corpuscular Hemoglobin Concent 33.7 G/DL (32.0-36.0) Red Cell Distribution Width 13.9 % (11.6-14.8) Platelet Count 263 K/UL (150-450) Mean Platelet Volume 7.0 FL (6.5-10.1) Neutrophils (%) (Auto) 71.9 % (45.0-75.0) Lymphocytes (%) (Auto) 19.3 % (20.0-45.0) L Monocytes (%) (Auto) 8.3 % (1.0-10.0) Eosinophils (%) (Auto) 0.2 % (0.0-3.0) Basophils (%) (Auto) 0.4 % (0.0-2.0) Prothrombin Time 11.7 SEC (9.30-11.50) H Prothromb Time International Ratio 1.1 (0.9-1.1) Activated Partial Thromboplast Time 27 SEC (23-33) Sodium Level 139 mEQ/L (135-145) Potassium Level 4.5 mEQ/L (3.4-4.9) Chloride Level 98 mEQ/L (98-107) Carbon Dioxide Level 22 mEQ/L (20-30) Anion Gap 19 (5-15) H Blood Urea Nitrogen 65 mg/dL (7-23) H Creatinine 1.6 mg/dL (0.7-1.2) H Estimat Glomerular Filtration Rate mL/min (>60) Glucose Level 158 mg/dL (74-106) H Lactic Acid Level 3.70 mmol/L (0.66-2.22) H Calcium Level 9.3 mg/dL (8.6-10.2) Total Bilirubin 0.4 mg/dL (0.0-1.2) Aspartate Amino Transf (AST/SGOT) 38 U/L (5-40) Alanine Aminotransferase (ALT/SGPT) 17 U/L (3-41) Alkaline Phosphatase 50 U/L (40-129) Total Creatine Kinase > 1700 U/L (38-174) H Creatine Kinase MB 11.8 ng/mL (< 6.7) H Creatine Kinase MB Relative Index 0.0 Troponin I < 0.30 ng/mL (<=0.30) Total Protein 7.4 g/dL (6.6-8.7) Albumin 3.1 g/dL (3.5-5.2) L Globulin 4.3 g/dL Albumin/Globulin Ratio 0.7 (1.0-2.7) L Urine Color Pale yellow Urine Appearance Turbid Urine pH 6 (4.5-8.0) Urine Specific [place] 1.015 (1.005-1.035) Urine Protein 3+ (NEGATIVE) H Urine Glucose (UA) Negative (NEGATIVE) Urine Ketones Negative (NEGATIVE) Urine Occult Blood 5+ (NEGATIVE) H Urine Nitrite Negative (NEGATIVE) Urine Bilirubin Negative (NEGATIVE) Urine Urobilinogen Normal MG/DL (0.0-1.0) Urine Leukocyte Esterase 3+ (NEGATIVE) H Urine RBC 5-10 /HPF (0 - 0) H Urine WBC Tntc /HPF (0 - 0) H Urine Squamous Epithelial Cells None /LPF (NONE/OCC) Urine Bacteria Many /HPF (NONE) H Lab Results Impression labs showed elevated lactic acid and dehydration EKG Diagnostic Results EKG Time: 01:11 Rate: normal Rhythm: NSR ST Segments: no acute changes Rhythm Strip Diag. Results Rhythm Strip Time: 01:11 EP Interpretation: yes Rate: 95 Rhythm: NSR, no PVC's, no ectopy Chest X-Ray Diagnostic Results Chest X-Ray Ordered: Yes # of Views/Limited/Complete: 1 View EP Interpretation: Yes Interpretation: no effusion, no pneumothorax, other - rul infiltrates. interstitial infiltrates. Indication: Shortness of Breath Impression: Other - lobar pneumonia Last Vital Signs Date Time Temp Pulse Resp B/P Pulse Ox O2 Delivery O2 Flow Rate FiO2 03/01/17 22:30 99.3 82 18 130/65 98 Room Air Status: improved Disposition: ADMITTED INPATIENT Condition: Serious Referrals: REJI OJEDA (PCP) NATHALIE HEREDIA M.D. Mar 02, 2017 01:12
[2017-03-02] MEDS ORDERED: DuoNeb 0.5-3(2.5)mg/3ml neb HHN PRN (05:45)
[2017-03-02] MEDS ORDERED: Zolpidem 5mg tab ORAL PRN (05:45)
[2017-03-02] MEDS ORDERED: Norco 5mg/325mg tab GT PRN (06:00)
[2017-03-02] MEDS ORDERED: NovoLOG Insulin Flexpen SUBQ SCH (06:30)
[2017-03-02] MEDS: sitaGLIPtin 50mg tab GT SCH (07:00)
[2017-03-02] MEDS ORDERED: Vancomycin 1gm/D5W 275ml IVPB SCH ×2 (07:15)
--- NOTE | 2017-03-02 08:27 | History & Physical ---
History and Physical History & Physicial History of Present Illness [id number] male coming from halfway with increasing congestion. He has multiple medical problem including aspiration pneumonia, diabetes, hypertension and renal failure. He is a full code and recently had a G-tube placed. Patient presents with acute onset of fever and congestion and nursing were concerned about an acute change. History is from the halfway discussion and records. Patient unable to give a history. He has had prior admissions for similar symptoms in the past. patient comfortable at present PAST MEDICAL HISTORY: GT pacemaker, BPH, CAD, hypertension, hypertensive heart disease, peptic ulcer disease, insulin-dependent diabetes, chronic kidney disease, anemia, and possible underlying history of COPD. foot ulcer MEDICATIONS: Reviewed. ALLERGIES: Reviewed. SOCIAL HISTORY: Nonsmoker and nondrinker. halfway patient. FAMILY HISTORY: Noncontributory. Not available. REVIEW OF SYSTEMS: Difficult to obtain. PHYSICAL EXAMINATION: GENERAL: The patient is awake, male, mild distress, mild congestion, not a reliable historian. VITAL SIGNS: Saturation 96% on room air, respirations 20, temperature 98.4 degrees, and blood pressure 129/74. HEENT: Oropharynx is moist. Gag present. NECK: Supple. Carotids 2+. LUNGS: Coarse breath sounds and some rhonchi. No wheezes. CARDIAC: S1 and S2. Regular rate and rhythm. Soft at the parasternal border. No rubs or gallops. ABDOMEN: Soft and nontender. No distention. EXTREMITIES: No cyanosis. No clubbing. No edema. left heel wound NEUROLOGIC: Grossly nonfocal. Labs Test 03/01/17 23:10 03/02/17 00:15 03/02/17 01:05 White Blood Count 14.2 K/UL (4.8-10.8) Red Blood Count 3.20 M/UL (4.70-6.10) Hemoglobin 9.7 G/DL (14.2-18.0) Hematocrit 28.7 % (42.0-52.0) Mean Corpuscular Volume 90 FL (80-99) Mean Corpuscular Hemoglobin 30.2 PG (27.0-31.0) Mean Corpuscular Hemoglobin Concent 33.7 G/DL (32.0-36.0) Red Cell Distribution Width 13.9 % (11.6-14.8) Platelet Count 263 K/UL (150-450) Mean Platelet Volume 7.0 FL (6.5-10.1) Neutrophils (%) (Auto) 71.9 % (45.0-75.0) Lymphocytes (%) (Auto) 19.3 % (20.0-45.0) Monocytes (%) (Auto) 8.3 % (1.0-10.0) Eosinophils (%) (Auto) 0.2 % (0.0-3.0) Basophils (%) (Auto) 0.4 % (0.0-2.0) Prothrombin Time 11.7 SEC (9.30-11.50) Prothromb Time International Ratio 1.1 (0.9-1.1) Activated Partial Thromboplast Time 27 SEC (23-33) Sodium Level 139 mEQ/L (135-145) Potassium Level 4.5 mEQ/L (3.4-4.9) Chloride Level 98 mEQ/L (98-107) Carbon Dioxide Level 22 mEQ/L (20-30) Anion Gap 19 (5-15) Blood Urea Nitrogen 65 mg/dL (7-23) Creatinine 1.6 mg/dL (0.7-1.2) Estimat Glomerular Filtration Rate mL/min (>60) Glucose Level 158 mg/dL (74-106) Lactic Acid Level 3.70 mmol/L (0.66-2.22) 1.90 mmol/L (0.66-2.22) Calcium Level 9.3 mg/dL (8.6-10.2) Total Bilirubin 0.4 mg/dL (0.0-1.2) Aspartate Amino Transf (AST/SGOT) 38 U/L (5-40) Alanine Aminotransferase (ALT/SGPT) 17 U/L (3-41) Alkaline Phosphatase 50 U/L (40-129) Total Creatine Kinase > 1700 U/L (38-174) Creatine Kinase MB 11.8 ng/mL (< 6.7) Creatine Kinase MB Relative Index 0.0 Troponin I < 0.30 ng/mL (<=0.30) Total Protein 7.4 g/dL (6.6-8.7) Albumin 3.1 g/dL (3.5-5.2) Globulin 4.3 g/dL Albumin/Globulin Ratio 0.7 (1.0-2.7) Urine Color Pale yellow Urine Appearance Turbid Urine pH 6 (4.5-8.0) Urine Specific [place] 1.015 (1.005-1.035) Urine Protein 3+ (NEGATIVE) Urine Glucose (UA) Negative (NEGATIVE) Urine Ketones Negative (NEGATIVE) Urine Occult Blood 5+ (NEGATIVE) Urine Nitrite Negative (NEGATIVE) Urine Bilirubin Negative (NEGATIVE) Urine Urobilinogen Normal MG/DL (0.0-1.0) Urine Leukocyte Esterase 3+ (NEGATIVE) Urine RBC 5-10 /HPF (0 - 0) Urine WBC Tntc /HPF (0 - 0) Urine Squamous Epithelial Cells None /LPF (NONE/OCC) Urine Bacteria Many /HPF (NONE) IMPRESSION Pneumonia CRF anemia Leukocytosis possible sepsis heel wound ALOC chronic encephalopathy GT aspiration PLAN ID evaluation Iv antibiotics wound care podiatry resumemeds follow up clinically impression, plan, and exam edited and reviewed in detail care discussed with REJI KIRBY Mar 02, 2017 08:27
[2017-03-02] MEDS: Carvedilol 25mg Tab GT SCH ×2 (08:30→20:30)
[2017-03-02] MEDS: Docusate 250mg cap ORAL SCH (08:30)
[2017-03-02] MEDS: Vancomycin 1gm/D5W 275ml IVPB SCH ×2 (08:31)
[2017-03-02] MEDS: Heparin 5000 units/ml inj SUBQ SCH ×2 (08:33→20:31)
[2017-03-02] MEDS ORDERED: Cefepime HCl 1 GM in D5W 55 ML IVPB SCH (09:00)
--- NOTE | 2017-03-02 10:27 | Diagnostic Imaging Report ---
Indication: Shortness of breath Technique: One view of the chest Comparison: 01/15/2017 Findings: Mixed interstitial and alveolar infiltrates are seen in the right upper lobe. This is decreased from the previous exam. Previously demonstrated left lung and right lower lobe infiltrates have largely resolved, although there is mild diffuse chronic appearing interstitial prominence throughout. The pleural spaces are clear. Heart size is normal. Left chest pacemaker is again demonstrated. Impression: Right upper lobe infiltrate, recurrent or residual, previous study of 01/15/2017, although less severe Other infiltrates previously demonstrated are no longer evident. There is background diffuse interstitial disease, suspect chronic in nature. This agrees with the preliminary interpretation provided by the emergency room physician
[2017-03-02] MEDS: NovoLOG Insulin Flexpen SUBQ SCH ×2 (12:00→18:15)
--- NOTE | 2017-03-02 20:05 | Cardiology Report ---
APPROVED REPORT EKG Measurement Heart [id number] Normal sinus rhythm Abnormal ECG
[2017-03-02] MEDS: TraZODone 100mg tab GT SCH (20:30)
[2017-03-02] MEDS: Tamsulosin 0.4mg cap GT SCH (20:30)
[2017-03-03] VITALS: BP 143/62
[2017-03-03] MEDS: NovoLOG Insulin Flexpen SUBQ SCH ×5 (00:35→23:34)
--- NOTE | 2017-03-03 02:52 | Wound Care Consultation ---
Wound Assessment Wound Assessment : Wound Number: #1 Wound Present on Admission: Yes New Wound: No Status Change of Wound: No Wound Location Body Site Modif: left Wound Location Body Site: heel Wound Type: pressure ulcer Anette Test: Does not Anette Pressure Ulcer Stage: IV/unstageable Wound Thickness: Full Thickness Wound Length: 2.0 Wound Width: 3.0 Wound Depth: utd Percent of Wound Black/Brown: 100 Wound Drainage Description: Serosanguineous Wound Drainage Amount: Scant Wound Drainage Odor: None/Absent Tissue Surrounding Wound: Macerated Wound General Appearance: Blackened, Draining, Necrotic Wound Comment #1 Left heel unstageable pressure ulcer Recommendation -Left heel unstageable pressure ulcer Cleanse with saline, pat dry, apply Therahoney gel to wound bed, cover with 4x4 , secure with bordered gauze daily and PRN soiled/dislodged -Heel protector on both heels -Offload both heels -Optimize nutrition -Low air loss mattress -Keep clean and dry -Turn and reposition -Assess and f/u accordingly for any changes MARIANO SAUER RN Mar 03, 2017 02:52
[2017-03-03] MEDS: sitaGLIPtin 50mg tab GT SCH (06:06)
[2017-03-03 07:05] LABS: BASOPHILS % (AUTO) 0.5 % (0.0-2.0); EOSINOPHILS % (AUTO) 0.3 % (0.0-3.0); LYMPHOCYTES % (AUTO) 19.9 % (20.0-45.0); MEAN CORPUSCULAR HEMOGLOBIN 29.6 PG (27.0-31.0); MEAN CORPUSCULAR HGB CONC 32.6 G/DL (32.0-36.0); MEAN CORPUSCULAR VOLUME 91 FL (80-99); MONOCYTES % (AUTO) 7.8 % (1.0-10.0); NEUTROPHILS % (AUTO) 71.6 % (45.0-75.0); PLATELET COUNT 258 K/UL (150-450); RED BLOOD COUNT 3.05 M/UL (4.70-6.10); RED CELL DISTRIBUTION WIDTH 13.9 % (11.6-14.8)
[2017-03-03 07:17] LABS: ANION GAP 18 (5-15); CARBON DIOXIDE 20 mEQ/L (20-30); CHLORIDE 105 mEQ/L (98-107); CREATININE 1.1 mg/dL (0.7-1.2); HEMOLYSIS 0; POTASSIUM 4.5 mEQ/L (3.4-4.9); SODIUM 143 mEQ/L (135-145)
[2017-03-03 08:00] VITALS: BP 109/51
--- NOTE | 2017-03-03 08:00 | General Progress Note ---
Assessment/Plan Assessment/Plan IMPRESSION Pneumonia CRF anemia Leukocytosis possible sepsis heel wound ALOC chronic encephalopathy GT aspiration necrotic heel wound PLAN ID evaluation pending podiatry pending Iv antibiotics wound care resume meds follow up clinically culture and cxr follow up impression, plan, and exam edited and reviewed in detail care discussed with RN Subjective Allergies: Coded Allergies: No Known Allergies (Unverified , 01/07/17) Subjective withdrawn GT in place Objective Last 24 Hour Vital Signs Date Time Temp Pulse Resp B/P Pulse Ox O2 Delivery O2 Flow Rate FiO2 03/03/17 04:00 75 03/03/17 00:00 82 03/03/17 00:00 97.9 80 20 143/62 95 Room Air 21 03/02/17 20:30 81 127/59 03/02/17 20:00 81 03/02/17 20:00 97.9 81 18 127/59 96 Room Air 21 03/02/17 19:30 80 20 Room Air 21 03/02/17 16:13 98.6 85 20 140/85 96 Room Air 03/02/17 16:00 83 03/02/17 12:08 98.2 73 20 123/60 95 Room Air 03/02/17 12:00 76 03/02/17 08:30 89 134/72 03/02/17 08:11 99.9 89 20 134/72 95 Room Air 03/02/17 08:00 85 Intake and Output 03/02/17 03/03/17 18:59 06:59 Intake Total 615.000 ml Balance 615.000 ml Free Water 50 ml IV Total 385.000 ml Tube Feeding 180 ml # Voids 3 2 Laboratory Tests 03/03/17 05:40: White Blood Count 10.0, Red Blood Count 3.05L, Hemoglobin 9.0L, Hematocrit 27.7L , Mean Corpuscular Volume 91, Mean Corpuscular Hemoglobin 29.6, Mean Corpuscular Hemoglobin Concent 32.6, Red Cell Distribution Width 13.9, Platelet Count 258, Mean Platelet Volume 7.0, Neutrophils (%) (Auto) 71.6, Lymphocytes (% ) (Auto) 19.9L, Monocytes (%) (Auto) 7.8, Eosinophils (%) (Auto) 0.3, Basophils (%) (Auto) 0.5, Sodium Level 143, Potassium Level 4.5, Chloride Level 105, Carbon Dioxide Level 20, Anion Gap 18H, Blood Urea Nitrogen 42H, Creatinine 1.1 , Estimat Glomerular Filtration Rate , Glucose Level 185H, Calcium Level 9.0 Height (Feet): 5 Height (Inches): 10.00 Weight (Pounds): 160 Objective WDWN NAD reduced breath sounds bilaterally with some rhonchi but no wheeze [id number] without MRG NABS nontender no HSM; GT no CCE heel wound nonfocal REJI OJEDA Mar 03, 2017 08:00
[2017-03-03] MEDS: Vancomycin 1gm/D5W 275ml IVPB SCH ×2 (08:26)
[2017-03-03] MEDS: Carvedilol 25mg Tab GT SCH ×2 (09:11→21:24)
[2017-03-03] MEDS: Docusate 250mg cap ORAL SCH (09:11)
[2017-03-03] MEDS: Heparin 5000 units/ml inj SUBQ SCH ×2 (09:15→21:25)
[2017-03-03] MEDS ORDERED: Cefepime HCl 1 GM in D5W 55 ML IVPB SCH (10:00)
[2017-03-03 12:16] VITALS: BP 125/52
--- NOTE | 2017-03-03 12:53 | Neurology Progress Note ---
Objective Physical Exam Last Vital Signs Date Time Temp Pulse Resp B/P Pulse Ox O2 Delivery O2 Flow Rate FiO2 03/03/17 12:16 97.5 69 17 125/52 99 Room Air 21.0 03/03/17 07:28 21 Laboratory Tests Test 03/03/17 05:40 White Blood Count 10.0 K/UL (4.8-10.8) Red Blood Count 3.05 M/UL (4.70-6.10) L Hemoglobin 9.0 G/DL (14.2-18.0) L Hematocrit 27.7 % (42.0-52.0) L Mean Corpuscular Volume 91 FL (80-99) Mean Corpuscular Hemoglobin 29.6 PG (27.0-31.0) Mean Corpuscular Hemoglobin Concent 32.6 G/DL (32.0-36.0) Red Cell Distribution Width 13.9 % (11.6-14.8) Platelet Count 258 K/UL (150-450) Mean Platelet Volume 7.0 FL (6.5-10.1) Neutrophils (%) (Auto) 71.6 % (45.0-75.0) Lymphocytes (%) (Auto) 19.9 % (20.0-45.0) L Monocytes (%) (Auto) 7.8 % (1.0-10.0) Eosinophils (%) (Auto) 0.3 % (0.0-3.0) Basophils (%) (Auto) 0.5 % (0.0-2.0) Sodium Level 143 mEQ/L (135-145) Potassium Level 4.5 mEQ/L (3.4-4.9) Chloride Level 105 mEQ/L (98-107) Carbon Dioxide Level 20 mEQ/L (20-30) Anion Gap 18 (5-15) H Blood Urea Nitrogen 42 mg/dL (7-23) H Creatinine 1.1 mg/dL (0.7-1.2) Estimat Glomerular Filtration Rate mL/min (>60) Glucose Level 185 mg/dL (74-106) H Calcium Level 9.0 mg/dL (8.6-10.2) Impression/Recommendations Problems: (1) toxic metabolic encephalopathy 2/2 infecion/metabolc derangement (2) UTI (urinary tract infection) (3) ALE (acute kidney injury) (4) Sepsis (5) Pneumonia Status: unchanged Recommendations #[id number] AARON TAVERAS Mar 03, 2017 12:53
--- NOTE | 2017-03-03 13:01 | Consultation ---
DATE OF CONSULTATION: 03/02/2017 CARDIOLOGY CONSULTATION REQUESTING PHYSICIAN: Jona Guerra M.D. REASON FOR CONSULTATION: Evaluation of cardiac parameters in the setting of acute respiratory distress. HISTORY OF PRESENT ILLNESS: This 82-year-old male, residing at a senior care facility with history of hypertensive heart disease and chronic kidney disease developed acute onset congestion with fevers and was transferred to the emergency room by ambulance. The patient is unable to give any additional data and records are reviewed as well as emergency room report. The case was also reviewed with the emergency room physician. PAST MEDICAL HISTORY: Includes: 1. Hypertension. 2. Coronary artery disease. 3. Prostatic hypertrophy. 4. Permanent pacemaker. 5. Dysphagia with G-tube. 6. Peptic ulcer disease. 7. Insulin-dependent diabetes mellitus. 8. Chronic kidney disease. 9. Anemia of chronic kidney disease. 10. COPD. 11. Peripheral artery disease with foot ulcer. ALLERGIES: None. MEDICATIONS: Prior to admission, reviewed and reconciled. SOCIAL HISTORY: No prior history of smoking, alcohol or substance abuse. REVIEW OF SYSTEMS: Not obtainable from the patient at this time. Pertinent data from review of records as outlined above. PHYSICAL EXAMINATION: VITAL SIGNS: Blood pressure is 130/65, pulse 82, respiratory rate 18, and temperature 99.3. GENERAL APPEARING: Temporal wasting. Moist mucous membranes. LUNGS: Coarse breath sounds. Scattered rhonchi. Basilar rales. No accessory muscle use. HEART: Regular rhythm and rate. Normal S1, S2 with a fourth heart sound. ABDOMEN: Soft and nontender. G-tube intact. EXTREMITIES: No edema. LABORATORY AND DIAGNOSTIC DATA: His white count 14.2 and hemoglobin 9.7. Potassium 4.5, sodium 139, bicarbonate 22, BUN 65, creatinine 1.6, and glucose 158. Troponin negative. Albumin 3.1. Lactic acid 3.7. Urinalysis with too numerous to count white cells. Chest x-ray revealed right upper lobe infiltrate improved from prior study and the EKG is notable for sinus rhythm with nonspecific ST change. IMPRESSION: 1. Aspiration pneumonia. 2. Acute respiratory insufficiency. 3. Lactic acidosis. 4. Urinary tract infection. 5. Sepsis. 6. Permanent pacemaker. 7. Hypertensive and ischemic cardiomyopathy. 8. Chronic diastolic congestive heart failure. PLAN: 1. Antibiotics. 2. Respiratory hygiene. 3. Monitor cardiorenal parameters and volume status. 4. Insulin coverage by sliding scale. 5. No diuresis presently indicated. 6. Maintain beta-blockade. 7. Permanent pacemaker interrogation will be arranged. Stanislav Jain M.D. DR: APPLE JOB#: [id number] CC:
--- NOTE | 2017-03-03 14:38 | Diagnostic Imaging Report ---
Indications: Level of consciousness Technique: Continuous helical CT imaging of the brain was performed with automatic exposure control on a Siemens sensation [address] scanner. Axial and coronal images were reconstructed at 5 mm slice thickness and interval. CTDI volume(s): 70 mGy Total DLP: 1466 mGy-cm Findings: Comparison: None Confluent low attenuation is present in the bilateral periventricular white matter. Ventricles, cisterns, and sulci are diffusely prominent. No evidence of mass or hemorrhage, mass effect, midline shift, hydrocephalus, or increased intracranial pressure. Bone window images are unremarkable. Air-fluid levels and right mastoid air cells. Visualized paranasal sinuses and left mastoid air cells are clear. IMPRESSION: No evidence of acute intracranial pathology . Bilateral cerebral periventricular white matter low attenuation, nonspecific, likely chronic microvascular ischemic in nature Atrophy with ventriculomegaly. Query normal pressure hydrocephalus. Suggestion of right mastoiditis, acute The CT scanner at [facility] is accredited by the [employer] and the scans are performed using protocols designed to limit radiation exposure to as low as reasonably achievable to attain images of sufficient resolution adequate for diagnostic evaluation.
[2017-03-03 16:00] VITALS: BP 103/57
--- NOTE | 2017-03-03 17:16 | Consultation ---
DATE OF CONSULTATION: 03/03/2017 INFECTIOUS DISEASES CONSULTATION CONSULTING PHYSICIAN: Ba Clemente M.D. REFERRING PHYSICIAN: Jona Guerra M.D. REASON FOR CONSULTATION: Fever. HISTORY OF PRESENTING ILLNESS: This is an 82-year-old gentleman with history of hypertension, benign prostatic hypertrophy, and diabetes who came in with fever and congestion. An Infectious Diseases consultation has been obtained for possible pneumonia. PAST MEDICAL HISTORY: 1. History of benign prostatic hypertrophy. 2. Coronary artery disease. 3. Hypertension. 4. Diabetes. 5. Peptic ulcer disease. 6. Chronic kidney disease. 7. COPD. 8. Foot ulcer. 9. Status post G-tube placement. 10. Status post pacemaker placement. SOCIAL HISTORY: No history of smoking, alcohol, or drug use. FAMILY HISTORY: Unknown. REVIEW OF SYSTEMS: Unable to obtain currently. MEDICATIONS: As an inpatient, the patient is on cefepime, trazodone, Flomax, atorvastatin, metformin, insulin, subcutaneous heparin, Proscar, Protonix, docusate, Coreg, IV vancomycin, Januvia, [place], albuterol, Tylenol, and Ambien. ALLERGIES: No known drug allergies. PHYSICAL EXAMINATION: VITAL SIGNS: Temperature of 97.5, T-max of 99.9, pulse of 69, respiratory rate 17, blood pressure 125/52, and O2 saturation of 99%. HEENT: Pupils equally reactive to light and accommodation. Mouth appears clean without thrush. NECK: Supple. No adenopathy. No JVD. CARDIOVASCULAR: Regular rate and rhythm. No murmurs. LUNGS: Clear to auscultation bilaterally. No crackles. No wheezes. ABDOMEN: Soft and nontender. G-tube site appears clean. EXTREMITIES: No cyanosis, no clubbing, and no edema. LABORATORY AND DIAGNOSTIC DATA: On 03/01/2017, white count 14.2, white count today of 10; hemoglobin 9; hematocrit 27.7; MCV 91; platelet count 258,000; and neutrophils of 71%. Sodium 143, potassium 4.5, chloride 105, bicarbonate 20, BUN 42, creatinine 1.1, glucose 185, and calcium of 9. On 03/01/2017, total bilirubin 0.4, AST 38, ALT 17, and alkaline phosphatase 50. CK more than 1700, CK-MB 11.8. Troponin less than 0.3. Total protein 7.4. Albumin 3.1. UA showing too numerous to count white cells. From 03/02/2017, urine culture is growing gram-negative rods. From 03/01/2017, blood cultures are negative so far. Chest x-ray showing right upper lobe infiltrate and other infiltrates are no longer evident. ASSESSMENT: This is an 82-year-old gentleman with history of diabetes and hypertension who comes in and is found to have, 1. Gram-negative urinary tract infection. 2. He also possibly has an aspiration pneumonia. 3. Diabetes. 4. Hypertension. PLAN: 1. Continue IV vancomycin and cefepime. 2. We will follow up cultures and adjust antibiotics accordingly. I would like to thank, Dr. Guerra, for this consultation. Ba Clemente M.D. DR: JOHN PAUL JOB#: [id number] CC: Jona Guerra M.D.; Fax#: [phone]
--- NOTE | 2017-03-03 18:16 | Consultation ---
DATE OF CONSULTATION: 03/03/2017 NEUROLOGICAL CONSULTATION CONSULTING PHYSICIAN: Fazal Castellanos M.D. REQUESTING PHYSICIAN: Jona Guerra M.D. HISTORY OF PRESENT ILLNESS: This is an 82-year-old man, resident of nursing facility, presenting with multiple medical issues, now seen in neurological consultation to evaluate a persistent unresponsiveness. The patient on arrival to the emergency room was unable to provide with any history being nonverbal. Apparently a night prior to admission, he started to develop fevers and congestion. His vital signs on admission included temperature 99.3 degrees and blood pressure 130/65. Initial diagnostic studies included laboratory work with CBC study, WBC of 14.2, hemoglobin 9.7, and hematocrit 28.7. Coagulation panel, PT 11.7. Urinalysis, WBC too numerous to count, 3+ leukocyte esterase, and 3+ protein. Chemistry panel, elevated anion gap of 19, BUN of 65, creatinine 1.6, and blood sugar 158. CPK more than 1700. CK-MB 11.8 and lactic acid 3.70. Chest x-ray revealed a right upper lobe infiltrate, recurrent or residual when compared with the previous study from 01/15/2017 with diffuse interstitial disease, suspected to be chronic. Following admission until present, there was no further improvement. The patient remained unresponsive, became more pronounced this morning when the patient would not open eyes and would not communicate. Stat CT of the brain requested and now pending. PAST MEDICAL HISTORY: The patient has a history of diabetes type 2, essential hypertension, very abnormal gait, dysphagia, hyperlipidemia, atherosclerotic heart disease with acute coronary artery disease, status post cardiac pacemaker. He had a recent acute myocardial infarction, major depression, peripheral vascular disease, gastroesophageal reflux disease, and benign prostatic hypertrophy. MEDICATIONS: Treatment prior to admission included atorvastatin, carvedilol, docusate, ferrous sulfate, Proscar, [place] as needed, insulin, lisinopril, metformin, Reglan, Protonix, pantoprazole, Januvia, tamsulosin, trazodone, and zolpidem. ALLERGIES: None reported. SOCIAL HISTORY: Resident of nursing facility. REVIEW OF SYSTEMS: Unable to obtain due to the patient's status. According to the family, prior to admission, the patient was able to communicate with the family even playing chess. He is wheelchair-bound. PHYSICAL EXAMINATION: GENERAL: A well-developed, somewhat ill-appearing man, lying in bed with eyes closed. VITAL SIGNS: Blood pressure 125/52 and temperature 97.5 degrees. HEENT: Head, normocephalic. There is no evidence of trauma. Eyes, ears, and throat are clear. NECK: Neck is rigid in all directions. MUSCULOSKELETAL: Diffuse rigidity. No deformities noted. Peripheral pulses 1+ symmetric. MENTAL STATUS: The patient is unresponsive to voice. On vigorous stimulation, he moans and groans. He remained eyes closed and would not follow command. CRANIAL NERVE II: Pupils both responding to light and accommodation. Extraocular movements seems normal. Unable to test for fundi. CRANIAL NERVE V: Normal corneal responses. No gross asymmetry. CRANIAL NERVE VIII: Grossly normal hearing. CRANIAL NERVES IX THROUGH XII: Reduced gag response. MOTOR EXAMINATION: Motor examination revealed a diffuse rigidity in all extremities with minor asymmetry only. Deep tendon reflexes depressed bilaterally. Plantar responses flexor. SENSORY EXAM: No response to pin stimulation. GAIT: Not tested. IMPRESSION: 1. This is an 82-year-old man, now presenting with urinary tract infection and pneumonia, developed a persistent verbal unresponsiveness. This most likely represents metabolic encephalopathy due to underlying infection and metabolic derangement. Doubt presence of acute stroke or acute intracranial lesion. 2. Hypertension. 3. Diabetes. 4. Pacemaker in place. 5. Recent acute myocardial infarction. 6. Wheelchair-bound. RECOMMENDATION: 1. Stat CT of the brain without contrast. 2. Continue intravenous fluids and antibiotics. 3. Aspirin 81 mg daily. 4. Consider carotid duplex and 2D echocardiogram. I discussed the patient's status with medical staff. Thank you for allowing me to see this interesting patient in neurological consultation. Fazal Castellanos M.D. DR: MADDY JOB#: [id number] CC:
[2017-03-03 20:00] VITALS: BP 124/55
[2017-03-03] MEDS: Tamsulosin 0.4mg cap GT SCH (21:23)
[2017-03-03] MEDS: TraZODone 100mg tab GT SCH (21:24)
--- NOTE | 2017-03-03 22:30 | Progress Note ---
DATE: 03/03/2017 CARDIOLOGY PROGRESS NOTE SUBJECTIVE: The patient remains withdrawn, monitored rhythm is sinus with pacing by demand. OBJECTIVE: VITAL SIGNS: Blood pressure 143/62, pulse 80, respiratory rate 20. No fevers. HEENT: Temporal wasting. Pale conjunctivae. Oropharynx clear. NECK: Supple. LUNGS: Coarse breath sounds. CARDIAC: Regular. Normal S1 and S2. ABDOMEN: Soft. G-tube intact. EXTREMITIES: No edema. dressing in place. LABORATORY AND DIAGNOSTIC DATA: White count 10, hemoglobin 9. Potassium 4.5, BUN 42, and creatinine 1.1. IMPRESSION: 1. Sepsis. 2. Pneumonia. 3. Acute on chronic renal failure, improved. 4. Chronic diastolic congestive heart failure, compensated. 5. Permanent pacemaker functioning appropriately. 6. Mild protein-calorie malnutrition. 7. Cerebrovascular disease with dementia. 8. , acute. 9. Lactic acidosis, recovered. 10. Hypertensive and ischemic cardiomyopathy. PLAN: 1. Antibiotics. 2. Respiratory hygiene. 3. Nutrition by feeding tube. 4. Titrate and adjust intravenous fluids. 5. Titrate antihypertensive and anti-failure regimen based on clinical parameters. 6. Permanent pacemaker interrogation is planned tomorrow. Stanislav Jain M.D. DR: Sarah JOB#: [id number] CC:
[2017-03-04] VITALS (7 sets, daily range): BP systolic 105–134; BP diastolic 50–75
--- NOTE | 2017-03-04 03:15 | Consultation ---
DATE OF CONSULTATION: 03/03/2017 PODIATRIC CONSULTATION ADMITTING PHYSICIAN: Jona Guerra M.D. HISTORY OF PRESENT ILLNESS: This is an 82-year-old male who was admitted yesterday with the diagnosis of aspiration pneumonia. I was requested to consult this patient for left heel ulcer. PAST MEDICAL HISTORY: Remarkable for coronary artery disease, hypertension, insulin-dependent diabetes, and BPH. MEDICATIONS: Cefepime, trazodone, Flomax, Lipitor, Glucophage, NovoLog, heparin, Proscar, Protonix, Colace, Coreg, Januvia, [place], vancomycin, Tylenol, and Ambien. ALLERGIES: No known drug allergies. PODIATRIC PHYSICAL EXAMINATION: VASCULAR EXAMINATION: The dorsalis pedis and posterior tibial arteries are faintly palpable bilaterally. Capillary filling time is less than 5 to 6 seconds to all digits bilaterally. Homans sign is negative. Mild varicosities are noted to the bilateral lower extremities. The skin is warm to touch bilaterally. NEUROLOGICAL EXAMINATION: The reflexes, Achilles and patellar are measuring 0/4 bilaterally. Sensation was not elicited from the patient. Proprioception and vibrations were deferred. Babinski was negative. Clonus is absent in bilateral lower extremity. MUSCULOSKELETAL EXAMINATION: Reveals nonreducible hammertoe deformities of digits 2 through 5 bilaterally. Joint range of motion of the digits of the metatarsophalangeal joint is reduced. The range of motion at the level of the metatarsal joint and calcaneal joint is reduced and crepitation is noted bilaterally. The extremities are in a contracted position at the level of the knees bilaterally. DERMATOLOGICAL EXAMINATION: Reveals an ulcer at the plantar aspect of the left heel. The ulcer is stage II with necrotic, ischemic skin, which measures approximately 3 x 3 cm with surrounding erythema. No streaks noted. No lymphangitis is noted. No lymphangitis or palpable nodes are noted. Palpation of the heel does not appear to elicit any painful response. The skin is otherwise intact bilaterally. No other scars or lesions are present. All nails are present and mycotic bilaterally. No hair is noted on bilateral lower extremities. ASSESSMENT: 1. Insulin-dependent diabetes. 2. Decubitus ulcer, left heel. 3. Onychomycosis bilaterally. 4. Peripheral vascular disease bilaterally. PLAN: Continue local wound care, which consists of medi honey dressing changes daily and elevate bilateral heel. Thank you, Dr. Guerra, for allowing me to see the patient in consultation. Zbigniew Kraus D.P.M. DR: CHANDA JOB#: [id number] CC: DANIELA
[2017-03-04] MEDS: sitaGLIPtin 50mg tab GT SCH (05:42)
[2017-03-04] MEDS: NovoLOG Insulin Flexpen SUBQ SCH ×3 (05:43→19:26)
[2017-03-04] MEDS ORDERED: Cefepime 2gm/D5W 110ml IV SCH ×2 (09:00)
--- NOTE | 2017-03-04 09:09 | General Progress Note ---
Assessment/Plan Assessment/Plan IMPRESSION Pneumonia CRF anemia Leukocytosis possible sepsis heel wound ALOC acute on chronic encephalopathy GT aspiration necrotic heel wound PLAN ID evaluation neuro noted podiatry pending Iv antibiotics wound care follow up clinically monitor and stabilize no surgical intervention planned impression, plan, and exam edited and reviewed in detail care discussed with RN Subjective Allergies: Coded Allergies: No Known Allergies (Unverified , 01/07/17) Subjective ALOC- head CT noted neuro appreciated podiatry appreciated GT in place Objective Last 24 Hour Vital Signs Date Time Temp Pulse Resp B/P Pulse Ox O2 Delivery O2 Flow Rate FiO2 03/04/17 07:39 99.0 76 20 125/53 96 Room Air 03/04/17 04:00 98.1 76 18 126/54 96 Room Air 21.0 21 03/04/17 04:00 75 03/04/17 00:00 75 03/04/17 00:00 98.1 69 20 134/54 96 Room Air 21.0 21 03/03/17 21:24 77 124/55 03/03/17 20:00 75 03/03/17 20:00 98.2 74 20 124/55 96 Room Air 21.0 21 03/03/17 19:30 77 20 Room Air 21 03/03/17 16:00 96.9 78 17 103/57 94 Room Air 03/03/17 16:00 69 03/03/17 12:16 97.5 69 17 125/52 99 Room Air 21.0 03/03/17 12:00 67 03/03/17 09:11 73 109/51 Intake and Output 03/03/17 03/04/17 19:00 07:00 Intake Total 60 ml 880 ml Balance 60 ml 880 ml Free Water 220 ml Tube Feeding 60 ml 660 ml # Voids 3 4 Height (Feet): 5 Height (Inches): 10.00 Weight (Pounds): 160 Objective WDWN NAD reduced breath sounds bilaterally with some rhonchi but no wheeze [id number] without MRG NABS nontender no HSM; GT no CCE heel wound reduced LOC REJI OJEDA Mar 04, 2017 09:09
[2017-03-04] MEDS: Vancomycin 1gm/D5W 275ml IVPB SCH ×2 (09:29)
[2017-03-04] MEDS: Docusate 250mg cap ORAL SCH (09:30)
[2017-03-04] MEDS: Carvedilol 25mg Tab GT SCH ×2 (09:30→22:29)
[2017-03-04] MEDS: Heparin 5000 units/ml inj SUBQ SCH ×2 (09:31→21:00)
--- NOTE | 2017-03-04 10:38 | Neurology Progress Note ---
Interim History Interim History ROS Limited/Unobtainable: Yes Complaints: i am ok, not elaborated Events: arousable Objective Physical Exam Last Vital Signs Date Time Temp Pulse Resp B/P Pulse Ox O2 Delivery O2 Flow Rate FiO2 03/04/17 09:30 76 125/53 03/04/17 07:39 99.0 20 96 Room Air 03/04/17 04:00 21.0 21 General: well developed, no acute distress, other - illappearing Head: normocophalic, atraumatic Neck: other - rigid Neurologic Exam Mental Status: other - very confused follows few commands Speech: other - yes no Language: no aphasia Cranial Nerve II: fundus normal, no papilledema Cranial Nerves III, IV, : pupils Cranial Nerve V: masseters function normal Cranial Nerve VII: normal facial expressions Cranial Nerve VIII: no nystagmus Cranial Nerve IX: other - pooe gag Cranial Nerve XI: trapezii function normal Cranial Nerve XII: no tongue atrophy/fasciculations Motor System: no involuntary movement, no muscle wasting, other - rigidity Sensory: normal pinprick Impression/Recommendations Problems: (1) toxic metabolic encephalopathy 2/2 infecion/metabolc derangement (2) UTI (urinary tract infection) (3) ALE (acute kidney injury) (4) Sepsis (5) Pneumonia Status: unchanged Recommendations #[id number] CT brain c/w atrophy prabably NPH, acute mastoiditis, cont present rx d/w staff AARON TAVERAS Mar 04, 2017 10:38
--- NOTE | 2017-03-04 11:15 | Infectious Diseases Prog Note ---
Assessment/Plan Assessment/Plan antibiotics : vancomycin iv, cefepime A 1. klebsiella UTI 2. pneumonia 3. rectal VRE colonization 4. leucocytosis improving 5. renal failure improving 6. DM 7. HTN P 1. d/c iv vancomycin, cefepime 2. start meropenem 3. will follow up cultures Subjective ROS Limited/Unobtainable: Yes Allergies: Coded Allergies: No Known Allergies (Unverified , 01/07/17) Objective Vital Signs Last 24 Hour Vital Signs Date Time Temp Pulse Resp B/P Pulse Ox O2 Delivery O2 Flow Rate FiO2 03/04/17 09:30 76 125/53 03/04/17 07:39 99.0 76 20 125/53 96 Room Air 03/04/17 04:00 98.1 76 18 126/54 96 Room Air 21.0 21 03/04/17 04:00 75 03/04/17 00:00 75 03/04/17 00:00 98.1 69 20 134/54 96 Room Air 21.0 21 03/03/17 21:24 77 124/55 03/03/17 20:00 75 03/03/17 20:00 98.2 74 20 124/55 96 Room Air 21.0 21 03/03/17 19:30 77 20 Room Air 21 03/03/17 16:00 96.9 78 17 103/57 94 Room Air 03/03/17 16:00 69 03/03/17 12:16 97.5 69 17 125/52 99 Room Air 21.0 03/03/17 12:00 67 Height (Feet): 5 Height (Inches): 10.00 Weight (Pounds): 160 Respiratory/Chest: lungs clear Cardiovascular: normal rate, regular rhythm, no gallop/murmur Abdomen: soft, non tender, other - GT Extremities: no edema Microbiology Date/Time Source Procedure Growth Status 03/01/17 23:25 Blood Blood Culture - Preliminary NO GROWTH AFTER 48 HOURS Resulted 03/01/17 23:10 Blood Blood Culture - Preliminary NO GROWTH AFTER 48 HOURS Resulted 03/02/17 00:16 Nasal Nares MRSA Culture - Final NO METHICILLIN RESISTANT STAPH AUREUS... Complete 03/02/17 00:15 Urine,Clean Catch Urine Culture - Final Klebsiella Pneumoniae Esbl Complete 03/02/17 00:16 Rectum VRE Culture - Final Enterococcus Faecium - Vre Complete VINICIO VAUGHAN Mar 04, 2017 11:15
[2017-03-04] MEDS: Meropenem 1 GM in NS 110 ML IVPB SCH ×2 (14:53→22:30)
--- NOTE | 2017-03-04 21:45 | Progress Note ---
DATE: 03/04/2017 CARDIOLOGY PROGRESS NOTE: SUBJECTIVE: Pacemaker was interrogated today and functioning appropriately. No significant arrhythmias noted. The battery life is adequate. OBJECTIVE: VITAL SIGNS: Blood pressure is 125/53, pulse 76, respiratory rate 20, and T-max 99 degrees. LUNGS: Coarse breath sounds. HEART: Regular rhythm and rate. Normal S1 and S2. ABDOMEN: Soft. G-tube is intact. EXTREMITIES: No edema. Heel wound noted. IMPRESSION: 1. Heel wound. 2. Paroxysmal atrial fibrillation. 3. Permanent pacemaker. 4. Healthcare-acquired pneumonia. 5. Chronic kidney disease. PLAN: 1. Antimicrobials for wound care. 2. Re-interrogate pacemaker in 6 to 12 months. 3. Continue deep venous prophylaxis. 4. Maintain beta-blockade without change. 5. No role for diuretic therapy presently. Stanislav Jain M.D. DR: Anh JOB#: [id number] CC:
[2017-03-04] MEDS: Tamsulosin 0.4mg cap GT SCH (22:30)
[2017-03-04] MEDS: TraZODone 100mg tab GT SCH (22:30)
[2017-03-05] MEDS: NovoLOG Insulin Flexpen SUBQ SCH ×3 (00:34→12:28)
[2017-03-05 04:00] VITALS: BP 146/80
[2017-03-05] MEDS: sitaGLIPtin 50mg tab GT SCH (06:38)
[2017-03-05 07:48] VITALS: BP 146/79
[2017-03-05 08:28] LABS: BASOPHILS % (AUTO) 0.7 % (0.0-2.0); EOSINOPHILS % (AUTO) 1.2 % (0.0-3.0); LYMPHOCYTES % (AUTO) 23.5 % (20.0-45.0); MEAN CORPUSCULAR HEMOGLOBIN 29.4 PG (27.0-31.0); MEAN CORPUSCULAR VOLUME 92 FL (80-99); MEAN PLATELET VOLUME 6.4 FL (6.5-10.1); MONOCYTES % (AUTO) 6.2 % (1.0-10.0); NEUTROPHILS % (AUTO) 68.5 % (45.0-75.0); PLATELET COUNT 273 K/UL (150-450); RED BLOOD COUNT 3.17 M/UL (4.70-6.10); RED CELL DISTRIBUTION WIDTH 14.3 % (11.6-14.8)
[2017-03-05 08:50] LABS: ALANINE AMINOTRANSFERASE 35 U/L (3-41); ALBUMIN/GLOBULIN RATIO 0.6 (1.0-2.7); ANION GAP 16 (5-15); ASPARTATE AMINO TRANSFERASE 28 U/L (5-40); CALCIUM 9.2 mg/dL (8.6-10.2); CARBON DIOXIDE 22 mEQ/L (20-30); CHLORIDE 104 mEQ/L (98-107); CREATININE 1.1 mg/dL (0.7-1.2); HEMOLYSIS 1; MAGNESIUM 1.6 mg/dL (1.7-2.5); POTASSIUM 4.4 mEQ/L (3.4-4.9); SODIUM 142 mEQ/L (135-145); TOTAL PROTEIN 6.9 g/dL (6.6-8.7)
[2017-03-05] MEDS: Carvedilol 25mg Tab GT SCH (08:53)
[2017-03-05] MEDS: Docusate 250mg cap ORAL SCH (08:53)
[2017-03-05] MEDS: Meropenem 1 GM in NS 110 ML IVPB SCH (08:54)
[2017-03-05] MEDS: Heparin 5000 units/ml inj SUBQ SCH (08:55)
--- NOTE | 2017-03-05 09:02 | Infectious Diseases Prog Note ---
Assessment/Plan Assessment/Plan A 1. klebsiella UTI, ESBL 2. pneumonia 3. rectal VRE colonization 4. leucocytosis improving 5. renal failure improving 6. DM 7. HPN P; Continue Meropenem Subjective ROS Limited/Unobtainable: Yes Neurologic: Reports: other - more alert Allergies: Coded Allergies: No Known Allergies (Unverified , 01/07/17) Objective Vital Signs Last 24 Hour Vital Signs Date Time Temp Pulse Resp B/P Pulse Ox O2 Delivery O2 Flow Rate FiO2 03/05/17 08:53 78 146/79 03/05/17 07:48 97.3 78 20 146/79 97 Room Air 03/05/17 06:59 78 18 Room Air 21 03/05/17 04:00 75 03/05/17 04:00 98.2 86 20 146/80 97 Room Air 03/05/17 00:00 70 03/04/17 23:57 98.6 78 20 122/75 94 Room Air 03/04/17 22:29 74 126/58 03/04/17 20:01 98.1 74 19 126/58 95 Room Air 03/04/17 20:00 76 03/04/17 19:46 70 20 Room Air 21 03/04/17 16:00 70 03/04/17 15:27 97.7 69 20 122/62 96 Room Air 03/04/17 12:00 77 03/04/17 11:19 99.9 72 20 105/50 95 Room Air 03/04/17 09:30 76 125/53 Height (Feet): 5 Height (Inches): 10.00 Weight (Pounds): 160 General Appearance: no acute distress HEENT: mucous membranes moist Respiratory/Chest: lungs clear Cardiovascular: normal rate Abdomen: soft, non tender, other - GT feeding Extremities: no edema Neurologic/Psychiatric: alert, responsive Laboratory Tests Test 03/05/17 07:20 White Blood Count 9.0 K/UL (4.8-10.8) Red Blood Count 3.17 M/UL (4.70-6.10) L Hemoglobin 9.3 G/DL (14.2-18.0) L Hematocrit 29.1 % (42.0-52.0) L Mean Corpuscular Volume 92 FL (80-99) Mean Corpuscular Hemoglobin 29.4 PG (27.0-31.0) Mean Corpuscular Hemoglobin Concent 32.0 G/DL (32.0-36.0) Red Cell Distribution Width 14.3 % (11.6-14.8) Platelet Count 273 K/UL (150-450) Mean Platelet Volume 6.4 FL (6.5-10.1) L Neutrophils (%) (Auto) 68.5 % (45.0-75.0) Lymphocytes (%) (Auto) 23.5 % (20.0-45.0) Monocytes (%) (Auto) 6.2 % (1.0-10.0) Eosinophils (%) (Auto) 1.2 % (0.0-3.0) Basophils (%) (Auto) 0.7 % (0.0-2.0) Sodium Level Pending Potassium Level Pending Chloride Level Pending Carbon Dioxide Level Pending Blood Urea Nitrogen Pending Creatinine Pending Estimat Glomerular Filtration Rate Pending Glucose Level Pending Calcium Level Pending Magnesium Level Pending Total Bilirubin Pending Aspartate Amino Transf (AST/SGOT) Pending Alanine Aminotransferase (ALT/SGPT) Pending Alkaline Phosphatase Pending Pro-B-Type Natriuretic Peptide Pending Total Protein Pending Albumin Pending Globulin Pending Current Medications Medications (Trade) Dose Ordered Sig/Subhash Route PRN Reason Start Time Stop Time Status Last Admin Dose Admin Acetaminophen (Tylenol) 650 mg Q4H PRN ORAL Mild Pain (Pain Scale 1-3) 03/02/17 05:45 04/01/17 05:44 Acetaminophen (Tylenol) 650 mg Q4H PRN ORAL fever 03/02/17 05:45 04/01/17 05:44 Acetaminophen/ Hydrocodone Bitart ([place] 5/325) 1 tab Q6H PRN GT For Pain 03/02/17 06:00 03/09/17 05:59 Albuterol/ Ipratropium (DuoNeb 0.5-3(2.5)mg/3ml) 3 ml Q4HRT PRN HHN Shortness of Breath 03/02/17 05:45 03/07/17 05:44 Atorvastatin Calcium (Lipitor) 10 mg BEDTIME GT 03/02/17 21:00 04/01/17 20:59 03/04/17 22:30 Carvedilol (Coreg) 25 mg EVERY 12 HOURS GT 03/02/17 09:00 04/01/17 08:59 03/05/17 08:53 Dextrose (Dextrose 50%) STAT PRN IV Hypoglycemia 03/02/17 06:00 04/01/17 05:59 Docusate Sodium (Colace) 250 mg DAILY ORAL 03/02/17 09:00 04/01/17 08:59 03/05/17 08:53 Finasteride (Proscar) 5 mg DAILY GT 03/02/17 09:00 04/01/17 08:59 03/05/17 08:53 Heparin Sodium (Porcine) (Heparin 5000 units/ml) 5,000 units EVERY 12 HOURS SUBQ 03/02/17 09:00 04/01/17 08:59 03/05/17 08:55 Insulin Aspart Q6HR SUBQ 03/02/17 12:00 04/01/17 11:59 03/05/17 06:47 Meropenem/Sodium Chloride (Merrem/Sodium Chloride) 110 ml @ 220 mls/hr Q12HR IVPB 03/04/17 14:00 03/09/17 13:59 03/05/17 08:54 Metformin HCl (Glucophage) 850 mg BID NG 03/02/17 18:00 04/01/17 17:59 03/05/17 08:52 Pantoprazole (Protonix) 40 mg DAILY ORAL 03/02/17 09:00 04/01/17 08:59 03/05/17 08:52 Sitagliptin Phosphate (Januvia) 50 mg ACBREAKFAST GT 03/02/17 06:30 04/01/17 06:29 03/05/17 06:38 Tamsulosin HCl (Flomax) 0.4 mg BEDTIME GT 03/02/17 21:00 04/01/17 20:59 03/04/17 22:30 Trazodone HCl (Desyrel) 100 mg BEDTIME GT 03/02/17 21:00 04/01/17 20:59 03/04/17 22:30 Zolpidem Tartrate (Ambien) 5 mg DAILYPRN PRN ORAL Insomnia 03/02/17 05:45 04/01/17 05:44 ABDOULAYE ALFONSO Mar 05, 2017 09:02
[2017-03-05 11:30] VITALS: BP 138/71
--- NOTE | 2017-03-05 13:12 | General Progress Note ---
Assessment/Plan Assessment/Plan IMPRESSION Pneumonia CRF anemia Leukocytosis possible sepsis heel wound ALOC acute on chronic encephalopathy GT aspiration necrotic heel wound PLAN ID evaluation noted inhaled amikacin neuro noted podiatry noted Iv antibiotics dc wound care follow up clinically monitor and stabilize no surgical intervention planned ok to dc impression, plan, and exam edited and reviewed in detail care discussed with RN Subjective Allergies: Coded Allergies: No Known Allergies (Unverified , 01/07/17) Subjective ALOC- head CT noted neuro appreciated podiatry appreciated GT in place d/w daughter ok to dc Objective Last 24 Hour Vital Signs Date Time Temp Pulse Resp B/P Pulse Ox O2 Delivery O2 Flow Rate FiO2 03/05/17 11:30 96.8 81 20 138/71 96 Room Air 03/05/17 08:53 78 146/79 03/05/17 07:48 97.3 78 20 146/79 97 Room Air 03/05/17 06:59 78 18 Room Air 21 03/05/17 04:00 75 03/05/17 04:00 98.2 86 20 146/80 97 Room Air 03/05/17 00:00 70 03/04/17 23:57 98.6 78 20 122/75 94 Room Air 03/04/17 22:29 74 126/58 03/04/17 20:01 98.1 74 19 126/58 95 Room Air 03/04/17 20:00 76 03/04/17 19:46 70 20 Room Air 21 03/04/17 16:00 70 03/04/17 15:27 97.7 69 20 122/62 96 Room Air Intake and Output 03/04/17 03/05/17 19:00 07:00 Intake Total 110 ml Balance 110 ml IV Total 110 ml # Voids 2 4 Laboratory Tests 03/05/17 07:20: White Blood Count 9.0, Red Blood Count 3.17L, Hemoglobin 9.3L, Hematocrit 29.1L , Mean Corpuscular Volume 92, Mean Corpuscular Hemoglobin 29.4, Mean Corpuscular Hemoglobin Concent 32.0, Red Cell Distribution Width 14.3, Platelet Count 273, Mean Platelet Volume 6.4L, Neutrophils (%) (Auto) 68.5, Lymphocytes ( %) (Auto) 23.5, Monocytes (%) (Auto) 6.2, Eosinophils (%) (Auto) 1.2, Basophils (%) (Auto) 0.7, Sodium Level 142, Potassium Level 4.4, Chloride Level 104, Carbon Dioxide Level 22, Anion Gap 16H, Blood Urea Nitrogen 42H, Creatinine 1.1 , Estimat Glomerular Filtration Rate , Glucose Level 181H, Calcium Level 9.2, Magnesium Level 1.6L, Total Bilirubin 0.4, Aspartate Amino Transf (AST/SGOT) 28 , Alanine Aminotransferase (ALT/SGPT) 35, Alkaline Phosphatase 51, Pro-B-Type Natriuretic Peptide 6732H, Total Protein 6.9, Albumin 2.6L, Globulin 4.3, Albumin/Globulin Ratio 0.6L Height (Feet): 5 Height (Inches): 10.00 Weight (Pounds): 160 Objective WDWN NAD reduced breath sounds bilaterally with some rhonchi but no wheeze [id number] without MRG NABS nontender no HSM; GT no CCE heel wound improved LOC wants to eat RORYAUTUMNREJI Mar 05, 2017 13:12
[2017-03-05 15:18] VITALS: BP 139/66
[2017-03-05] MEDS ORDERED: AMIKIN500 MG/2 M INH (16:32)
[2017-03-05] MEDS ORDERED: Tubing IV Secondary IV ONE ×2 (17:45)
[2017-03-05] MEDS ORDERED: Sterile Water For Irrig 2000ml IRRIG ONE (17:45)
[2017-03-05] MEDS ORDERED: NS 275ml ONE (17:45)
--- NOTE | 2017-03-05 17:46 | Progress Note ---
DATE: 03/05/2017 SUBJECTIVE: The patient has no new distress. Ongoing wound care of the foot is noted. The patient's pacemaker was interrogated yesterday and as reported yesterday functioning appropriately. OBJECTIVE: VITAL SIGNS: Blood pressure 146/79, pulse 78, respiratory rate 18, and afebrile. LUNGS: Bilateral breath sounds. CARDIOVASCULAR: Regular rhythm and rate. ABDOMEN: Soft. G-tube intact. EXTREMITIES: No edema. IMPRESSION: 1. Heel ulcer. 2. Paroxysmal atrial fibrillation. 3. Permanent pacemaker. 4. Healthcare-acquired pneumonia. 5. Chronic kidney disease. PLAN: Stable for [facility] from cardiovascular standpoint. Continued beta-blockade. No additional cardiovascular drugs presently needed. Stanislav Jain M.D. DR: ADRIÁN JOB#: [id number] CC:
--- NOTE | 2017-03-06 07:46 | Discharge Summary ---
Discharge Summary Hospital Course Date of Admission Mar 02, 2017 at 00:35 Date of Discharge Mar 05, 2017 at 17:46 Admitting Diagnosis Sepsis, pneumonia HPI Daniel Kruger is a 82 year old male who was admitted on Mar 02, 2017 at 00: 35 for Pneumonia Hospital Course [id number] Discharge Discharge Disposition Patient was discharged to SNF/Subacute Facility(03) Discharge Diagnoses: Jeanie Gonzalez NP Mar 06, 2017 07:46
--- NOTE | 2017-03-06 08:31 | Discharge Summary 2 SIG ---
DATE OF ADMISSION: 03/02/2017 DATE OF DISCHARGE: 03/05/2017 CONSULTANTS: 1. Fazal Castellanos M.D. 2. Ba Clemente M.D. 3. Stanislav Jain M.D. 4. Zbigniew Kraus D.P.M. BRIEF HOSPITAL COURSE: The patient is an 82-year-old male, who came from jail for increased congestion. He has multiple medical problems including aspiration pneumonia, diabetes, hypertension, and renal failure. Recently, he had a G-tube placed. He presented with acute onset of fever and [facility] the [facility]. On evaluation at ED, WBC was elevated to 14.2. Lactic acid is 3.7. Urine WBCs, too many to count. He had a chest x-ray done that showed right upper lung infiltrates and interstitial infiltrates. EKG was in normal sinus rhythm at a rate of 95. Creatinine was elevated. The patient was admitted to telemetry for pneumonia, renal failure, anemia, and possible sepsis. He was started on vancomycin and cefepime. Urine culture showed growth of Klebsiella ESBL. Blood culture did not isolate any growth. Vancomycin and cefepime were discontinued and was started on meropenem. Neurologic evaluation was done. The patient had persistently been unresponsive and would not open eyes, and would not communicate. Head CT showed no evidence of acute intracranial pathology with bilateral cerebral periventricular white matter low-attenuation and microvascular ischemic in nature. He was diagnosed to have toxic metabolic encephalopathy secondary to infection and metabolic derangement. The patient also had paroxysmal atrial fibrillation and had a permanent pacemaker, recommended to have interrogation in 6 to 12 months. He came in with a left heel, unstageable pressure ulcer. Daily wound care was done. He was eventually discharged back to SNF. FINAL DIAGNOSES: 1. Pneumonia. 2. Chronic renal failure. 3. Anemia. 4. Leukocytosis, possible sepsis. 5. Unstageable left heel ulcer, present on admission. 6. Acute metabolic encephalopathy. 7. Gastrostomy tube feed. 8. Aspiration. 9. Paroxysmal atrial fibrillation. 10. Permanent pacemaker. 11. Klebsiella urinary tract infection. 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 13. Hypertension. 14. Diabetes mellitus. Jona Guerra M.D. I have been assigned to dictate discharge summary on this account and I was not involved in the patient's management. Jeanie Gonzalez N.P. DR: Marianne JOB#: [id number] CC: DANIELA
== END 2017-03-05 17:46 | DRG 871 ==
LOC: EDBD 22:35 → EMR 23:00 → EDBEDREQ 03-02 00:04 → 2E 03-02 00:35 → EDBEDREQ 03-02 00:54 → 2E 03-04 15:55
DX: A41.9 Sepsis, unspecified organism (principal); G92 Toxic encephalopathy; N17.9 Acute kidney failure, unspecified; J18.9 Pneumonia, unspecified organism; I13.0 Hypertensive heart and chronic kidney disease with heart failure and stage 1 through stage 4 chronic kidney disease, or unspecified chronic kidney disease; I50.32 Chronic diastolic (congestive) heart failure; F03.90 Unspecified dementia, unspecified severity, without behavioral disturbance, psychotic disturbance, mood disturbance, and anxiety; N39.0 Urinary tract infection, site not specified; E44.1 Mild protein-calorie malnutrition; N18.9 Chronic kidney disease, unspecified; I48.0 Paroxysmal atrial fibrillation; E11.22 Type 2 diabetes mellitus with diabetic chronic kidney disease; N40.0 Benign prostatic hyperplasia without lower urinary tract symptoms; I25.10 Atherosclerotic heart disease of native coronary artery without angina pectoris; E78.5 Hyperlipidemia, unspecified; I25.2 Old myocardial infarction; K21.9 Gastro-esophageal reflux disease without esophagitis; D63.8 Anemia in other chronic diseases classified elsewhere; B96.1 Klebsiella pneumoniae [K. pneumoniae] as the cause of diseases classified elsewhere; Y95 Nosocomial condition; L89.620 Pressure ulcer of left heel, unstageable; Z16.21 Resistance to vancomycin; Z79.4 Long term (current) use of insulin; Z68.23 Body mass index [BMI] 23.0-23.9, adult; Z99.3 Dependence on wheelchair; Z95.0 Presence of cardiac pacemaker
CPT/HCPCS: 36415; 70450; 71010; 80048; 80053; 81003; 82550; 82553; 82962; 83605; 83735; 83880; 84484; 85025; 85610; 85730; 87040; 87081; 87086; 87181; 93005; 94664; J1815

== ENCOUNTER 2017-03-13 17:52 | Inpatient (IN) | payer MEDICARE, OTHER ==
[~2017-03-13] VITALS: Ht 182.9 cm; Wt 83.0 kg
[2017-03-13] VITALS (18 sets, daily range): BP systolic 68–119; BP diastolic 33–84
[~2017-03-13 17:52] MED LIST changes: +ACETAMINOPHEN325 M1 ORAL; +AMIKIN500 MG/2 M INH; +ATORVASTATIN CA20 MG ORAL; +CARVEDILOL25 MG GT; +DOCUSATE SODIU250 MG GT; +FLOMAX0.4 MG GT; +GLYTROL250 ML GT; +JANUVIA25 MG GT; +METFORMIN HCL850 M1 GT; +NORCO 5-325 TA1 EAC1 GT; +PANTOPRAZOLE SO40 MG GT; +PROSCAR5 MG GT; +REGLAN10 MG GT; +TRAZODONE HCL100 MG GT
[2017-03-13] MEDS ORDERED: Etomidate 40mg/20ml Inj IV ONE (18:00)
[2017-03-13] MEDS ORDERED: Vancomycin 1 GM in NS 275 ML IV ONE (18:00)
[2017-03-13] MEDS ORDERED: Cefepime HCl 1 GM in NS 55 ML IV SCH (18:00)
[2017-03-13] MEDS ORDERED: Midazolam for drip 50 MG in D5W 90 ML IV SCH (18:00)
[2017-03-13] MEDS ORDERED: NS 1000ml 1,900 ML IVLG ONE (18:00)
[2017-03-13] MEDS ORDERED: Midazolam 2mg/2ml Inj IVP ONE (18:00)
[2017-03-13 18:26] LABS: MEAN CORPUSCULAR HEMOGLOBIN 30.7 PG (27.0-31.0); MEAN CORPUSCULAR HGB CONC 33.3 G/DL (32.0-36.0); MEAN CORPUSCULAR VOLUME 92 FL (80-99); PLATELET COUNT 382 K/UL (150-450); RED BLOOD COUNT 3.37 M/UL (4.70-6.10); RED CELL DISTRIBUTION WIDTH 14.5 % (11.6-14.8); WHITE BLOOD COUNT 20.1 K/UL (4.8-10.8)
[2017-03-13] MEDS ORDERED: Cefepime 1gm vial ONE (18:26)
--- NOTE | 2017-03-13 18:28 | Emergency Room Report ---
History of Present Illness General Chief Complaint: Dyspnea/Respdistress Source: Patient, Medical Record Present Illness HPI Patient presents with respiratory distress and hypoxia. Also fever 103. Less alert that baseline. O2 sat 87% prior to O2. Sats gene to 94% with paramedics. They said he tried to take off O2. He came from a nursing home facility. Is a full code. Discharged 03/05 with these Dx: 1. Pneumonia. 2. Chronic renal failure. 3. Anemia. 4. Leukocytosis, possible sepsis. 5. Unstageable left heel ulcer, present on admission. 6. Acute metabolic encephalopathy. 7. Gastrostomy tube feed. 8. Aspiration. 9. Paroxysmal atrial fibrillation. 10. Permanent pacemaker. 11. Klebsiella urinary tract infection. 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 13. Hypertension. 14. Diabetes mellitus. No other history available. Allergies: Coded Allergies: No Known Allergies (Unverified , 01/07/17) Patient History Limited by: medical condition Past Medical History: see triage record, old chart reviewed Past Surgical History: other - PEG Social History Narrative CV [place] Reviewed Nursing Documentation: PMH: Agreed, PSxH: Agreed Nursing Documentation-PMH Past Medical History: No History, Except For Hx Cardiac Problems: Yes Hx Hypertension: Yes Hx Pacemaker: Yes Hx Diabetes: Yes Hx Cancer: No Hx Gastrointestinal Problems: Yes Hx Neurological Problems: Yes Hx Dementia: Yes Review of Systems All Other Systems: limited Physical Exam Vital Signs Date Time Temp Pulse Resp B/P Pulse Ox O2 Delivery O2 Flow Rate FiO2 03/13/17 17:39 100.0 98 26 84/72 98 Non-Rebreather 15.0 Sp02 EP Interpretation: reviewed, normal General Appearance: moderate distress, Chronically Ill, Stupor Head: normocephalic Eyes: bilateral eye normal inspection ENT: moist mucus membranes Neck: supple Respiratory: crackles, other - tachypneic Cardiovascular #1: tachycardia Cardiovascular #2: 2+ radial (R) Gastrointestinal: normal inspection, non tender, no mass, non-distended, abnormal bowel sounds - decreased Genitourinary: normal inspection Musculoskeletal: back normal, other - some contractures Neurologic: other - moves upper hands, otherwise unresponsive Psychiatric: other - stupor Skin: normal inspection, warm/dry Procedures Critical Care Time Critical Care Time Total Critical Care Time: 30 min of bedside evaluation and treatment excludes procedures Procedures: CVP, intubation, EKG Reason for Critical Care: Hypotension, sepsis, metabolic acidosis, prevention of end organ injury, respiratory failure Course: the patient presented with AMS fever and hypoxia. He was urgently intubated. He was treated with fluid bolus and sepsis protocol. He later dropped his blood pressure despite aggressive fluid resuscitation. He needed pressors so a central line was started. In addition, antibiotics were initiated. Repeated evaluations were made as well as discussion with family. Sedation with Versed was ordered. Levophed begun. Patient admitted to ICU. Consultations: family, staff weapons officer Alternative history: EMS, family Result: Patient was improved but critical Performed by: Dr. Peña Central Line Central Line : Consent: Emergent Central Line Lumen: triple Maximal Sterile Barrier Tech: yes cap, yes mask, yes sterile gown, yes sterile gloves, yes large sterile sheet, yes hand hygiene, yes chlorhexidine prep Central Line Postion: femoral (R) Complications: none Central Line Post Position: sutured, good blood return Attempts: One Patient Tolerated: Well Complications: None Progress EBL = 2 cc Intubation Intubation : Consent: Emergent Intubation Method: orotracheal Tube Size (cm): 8.0 - 23 cm gums Medications: Etomidate Breath Sounds after Intubation: equal Intubation Complications: no complications Post Intubation Xray: Yes Attempts: One Patient Tolerated: Well Complications: None Medical Decision Making Diagnostic Impression: Primary Impression: Respiratory failure Qualified Codes: J96.01 - Acute respiratory failure with hypoxia Additional Impressions: Pneumonia Qualified Codes: J18.9 - Pneumonia, unspecified organism Severe sepsis UTI (urinary tract infection) Qualified Codes: T83.511A - Infection and inflammatory reaction due to indwelling urethral catheter, initial encounter; N39.0 - Urinary tract infection , site not specified Renal insufficiency ER Course The patient presents with respiratory distress. He vomited one time and it was felt he could not tolerate BIPAP. Based on this he needed immediate intubation. Evaluation with labs, EKG, CXR. Labs with leukocytosis, elevated lactic acid, renal insufficiency. Patient is intubated here. Sepsis resuscitation initiated and treated with antibiotics. CXR with bilat infiltrates. BP low after fluid bolus. Discussed care and with family. CVP started and levophed begun. Sedated with versed. Admit ICU, Dr. Guerra. Laboratory Tests Test 03/13/17 18:10 03/13/17 18:40 03/13/17 19:07 03/13/17 21:00 White Blood Count 20.1 K/UL (4.8-10.8) H Red Blood Count 3.37 M/UL (4.70-6.10) L Hemoglobin 10.3 G/DL (14.2-18.0) L Hematocrit 31.1 % (42.0-52.0) L Mean Corpuscular Volume 92 FL (80-99) Mean Corpuscular Hemoglobin 30.7 PG (27.0-31.0) Mean Corpuscular Hemoglobin Concent 33.3 G/DL (32.0-36.0) Red Cell Distribution Width 14.5 % (11.6-14.8) Platelet Count 382 K/UL (150-450) Mean Platelet Volume 7.0 FL (6.5-10.1) Neutrophils (%) (Auto) % (45.0-75.0) Lymphocytes (%) (Auto) % (20.0-45.0) Monocytes (%) (Auto) % (1.0-10.0) Eosinophils (%) (Auto) % (0.0-3.0) Basophils (%) (Auto) % (0.0-2.0) Differential Total Cells Counted 100 Neutrophils % (Manual) 62 % (45-75) Lymphocytes % (Manual) 21 % (20-45) Monocytes % (Manual) 14 % (1-10) H Eosinophils % (Manual) 0 % (0-3) Basophils % (Manual) 0 % (0-2) Band Neutrophils 3 % (0-8) Platelet Estimate Adequate Platelet Morphology Normal Red Blood Cell Morphology Normal Prothrombin Time 12.5 SEC (9.30-11.50) H Prothrombin Time INR 1.2 (0.9-1.1) H PTT 26 SEC (23-33) Sodium Level 144 mEQ/L (135-145) Potassium Level 4.6 mEQ/L (3.4-4.9) Chloride Level 105 mEQ/L (98-107) Carbon Dioxide Level 23 mEQ/L (20-30) Anion Gap 16 (5-15) H Blood Urea Nitrogen 54 mg/dL (7-23) H Creatinine 1.3 mg/dL (0.7-1.2) H Estimate Glomerular Filtration Rate mL/min (>60) Glucose Level 201 mg/dL (74-106) H Lactic Acid Level 4.90 mmol/L (0.66-2.22) H 4.50 mmol/L (0.66-2.22) H Calcium Level 8.8 mg/dL (8.6-10.2) Total Bilirubin 0.3 mg/dL (0.0-1.2) Aspartate Amino Transferase (AST) 31 U/L (5-40) Alanine Aminotransferase (ALT) 22 U/L (3-41) Alkaline Phosphatase 44 U/L (40-129) Total Creatine Kinase 1063 U/L (38-174) H Troponin I < 0.30 ng/mL (<=0.30) Pro-B-Type Natriuretic Peptide 7625 pg/mL (0-450) H Total Protein 7.4 g/dL (6.6-8.7) Albumin 2.8 g/dL (3.5-5.2) L Globulin 4.6 g/dL Albumin/Globulin Ratio 0.6 (1.0-2.7) L Urine Color Yellow Urine Appearance Cloudy Urine pH 6 (4.5-8.0) Urine Specific [place] 1.010 (1.005-1.035) Urine Protein 3+ (NEGATIVE) H Urine Glucose (UA) Negative (NEGATIVE) Urine Ketones Negative (NEGATIVE) Urine Occult Blood 3+ (NEGATIVE) H Urine Nitrite Negative (NEGATIVE) Urine Bilirubin Negative (NEGATIVE) Urine Urobilinogen Normal MG/DL (0.0-1.0) Urine Leukocyte Esterase 3+ (NEGATIVE) H Urine RBC 0-2 /HPF (0 - 0) H Urine WBC Tntc /HPF (0 - 0) H Urine Squamous Epithelial Cells None /LPF (NONE/OCC) Urine Bacteria Moderate /HPF (NONE) H Urine Yeast Moderate /HPF (NONE) H Arterial Blood pH 7.316 (7.350-7.450) Arterial Blood Partial Pressure CO2 44.3 mmHg (35.0-45.0) Arterial Blood Partial Pressure O2 105.1 mmHg (75.0-100.0) H Arterial Blood HCO3 22.1 mmol/L (22.0-26.0) Arterial Blood Oxygen Saturation 96.3 % (92.0-98.0) Arterial Blood Base Excess -3.9 Yosvany Test Positive EKG Diagnostic Results Rate: normal Rhythm: NSR ST Segments: no acute changes Rhythm Strip Diag. Results EP Interpretation: yes Rhythm: NSR, no PVC's, no ectopy Chest X-Ray Diagnostic Results Chest X-Ray Diagnostic Results : Chest X-Ray Ordered: Yes # of Views/Limited/Complete: 1 View Indication: Shortness of Breath EP Interpretation: Yes Interpretation: no effusion, no pneumothorax, other - inubated, bilat infiltrates, pacer Impression: Other Interpreting ER Provider: Electronically signed by Stanislav Peña MD Last Vital Signs Date Time Temp Pulse Resp B/P Pulse Ox O2 Delivery O2 Flow Rate FiO2 03/14/17 03:15 92 25 40 03/14/17 03:00 88/36 100 Mechanical Ventilator 03/14/17 02:00 98.6 03/13/17 21:50 15.0 Status: improved Disposition: ADMITTED INPATIENT Condition: Critical Stanislav Peña M.D. Mar 13, 2017 18:28
[2017-03-13 18:32] LABS: INR 1.2 (0.9-1.1); PROTHROMBIN TIME 12.5 SEC (9.30-11.50)
[2017-03-13] MEDS ORDERED: Acetaminophen 650 MG SUPP RECTAL ONE ×2 (18:39→18:45)
[2017-03-13] MEDS ORDERED: GLYTROL250 ML GT (18:51)
[2017-03-13] MEDS ORDERED: FERROUS SULFAT325 MG GT (18:51)
[2017-03-13] MEDS ORDERED: TAMSULOSIN HCL0.4 MG GT (18:51)
[2017-03-13] MEDS ORDERED: ATORVASTATIN CA20 MG GT (18:51)
[2017-03-13] MEDS ORDERED: KAYEXALATE SUSP15 GM GT (18:54)
[2017-03-13] MEDS ORDERED: PROSCAR5 MG GT (18:54)
[2017-03-13] MEDS ORDERED: JANUVIA25 MG GT (18:54)
[2017-03-13] MEDS ORDERED: LISINOPRIL5 MG GT (18:54)
[2017-03-13 19:05] LABS: TROPONIN I < 0.30 ng/mL (<=0.30)
[2017-03-13 19:09] LABS: ALANINE AMINOTRANSFERASE 22 U/L (3-41); ALBUMIN/GLOBULIN RATIO 0.6 (1.0-2.7); ANION GAP 16 (5-15); ASPARTATE AMINO TRANSFERASE 31 U/L (5-40); CALCIUM 8.8 mg/dL (8.6-10.2); CARBON DIOXIDE 23 mEQ/L (20-30); CHLORIDE 105 mEQ/L (98-107); CREATININE 1.3 mg/dL (0.7-1.2); HEMOLYSIS 6; POTASSIUM 4.6 mEQ/L (3.4-4.9); SODIUM 144 mEQ/L (135-145); TOTAL PROTEIN 7.4 g/dL (6.6-8.7)
[2017-03-13 19:09] LABS: ABG PCO2 44.3 mmHg (35.0-45.0)
[2017-03-13 19:10] LABS: ABG ALLEN TEST POSITIVE; ABG BASE EXCESS -3.9
[2017-03-13 19:13] LABS: REFLEX LACTIC ACID YES OR NO YES
[2017-03-13 19:30] LABS: APPEARANCE,URINE CLOUDY; KETONES,URINE NEGATIVE (NEGATIVE); LEUKOCYTE ESTERASE ,URINE 3+ (NEGATIVE); NITRITE,URINE NEGATIVE (NEGATIVE); PH,URINE 6 (4.5-8.0); PROTEIN,URINE 3+ (NEGATIVE); UROBILINOGEN,URINE NORMAL MG/DL (0.0-1.0)
[2017-03-13 19:42] LABS: BACTERIA,URINE MODERATE /HPF; RBC,URINE 0-2 /HPF (0 - 0); WBC,URINE TNTC /HPF (0 - 0); YEAST,URINE MODERATE /HPF
[2017-03-13 20:33] LABS: BAND NEUTROPHILS % (MANUAL) 3 % (0-8); BASOPHILS % (MANUAL) 0 % (0-2); EOSINOPHILS % (MANUAL) 0 % (0-3); LYMPHOCYTES % (MANUAL) 21 % (20-45); NEUTROPHILS % (MANUAL) 62 % (45-75); PLATELET ESTIMATE ADEQUATE; TOTAL CELLS COUNTED 100
[2017-03-13 20:34] LABS: PLATELET MORPHOLOGY NORMAL
[2017-03-13] MEDS ORDERED: Acetaminophen 650mg/20.3ml NG ONE (21:00)
[2017-03-13] MEDS ORDERED: Vancomycin 1gm inj IVPB ONE (21:45)
[2017-03-14] VITALS (62 sets, daily range): BP systolic 76–126; BP diastolic 36–61
[2017-03-14] MEDS: Midazolam for drip 50 MG in D5W 90 ML IV SCH ×2
[2017-03-14] MEDS ORDERED: Zolpidem 5mg tab GT PRN (01:00)
[2017-03-14 05:12] LABS: BASOPHILS % (AUTO) 1.5 % (0.0-2.0); EOSINOPHILS % (AUTO) 0.2 % (0.0-3.0); LYMPHOCYTES % (AUTO) 18.7 % (20.0-45.0); MEAN CORPUSCULAR HEMOGLOBIN 30.2 PG (27.0-31.0); MEAN CORPUSCULAR HGB CONC 32.6 G/DL (32.0-36.0); MEAN CORPUSCULAR VOLUME 93 FL (80-99); MEAN PLATELET VOLUME 7.1 FL (6.5-10.1); MONOCYTES % (AUTO) 4.9 % (1.0-10.0); NEUTROPHILS % (AUTO) 74.6 % (45.0-75.0); PLATELET COUNT 292 K/UL (150-450); RED BLOOD COUNT 2.84 M/UL (4.70-6.10); RED CELL DISTRIBUTION WIDTH 14.2 % (11.6-14.8); WHITE BLOOD COUNT 8.3 K/UL (4.8-10.8)
[2017-03-14 05:33] LABS: ANION GAP 20 (5-15); CALCIUM 7.7 mg/dL (8.6-10.2); CARBON DIOXIDE 18 mEQ/L (20-30); CHLORIDE 103 mEQ/L (98-107); CREATININE 1.4 mg/dL (0.7-1.2); HEMOLYSIS 8; POTASSIUM 4.3 mEQ/L (3.4-4.9); SODIUM 141 mEQ/L (135-145)
[2017-03-14 05:58] LABS: REFLEX LACTIC ACID YES OR NO YES
[2017-03-14] MEDS: Piperacillin/Tazobactam 3.375 GM in D5W 110 ML IVPB SCH ×3 (05:59→22:05)
[2017-03-14] MEDS: NovoLOG Insulin Flexpen SUBQ SCH ×4 (06:00→23:29)
[2017-03-14] MEDS ORDERED: Levophed 4mg/4mL Inj IV ONE (06:52)
[2017-03-14 08:27] LABS: ABG BASE EXCESS -4.5; ABG PCO2 36.9 mmHg (35.0-45.0)
[2017-03-14 08:28] LABS: ABG ALLEN TEST POSITIVE
[2017-03-14] MEDS: Tamsulosin 0.4mg cap GT SCH (08:47)
[2017-03-14] MEDS: Ferrous Sulfate 300 MG/5 ML UDC GT SCH (08:48)
[2017-03-14] MEDS: Heparin 5000 units/ml inj SUBQ SCH ×2 (08:51→21:05)
[2017-03-14] MEDS: sitaGLIPtin 25mg tab GT SCH (08:53)
[2017-03-14] MEDS ORDERED: Tubing IV Secondary IV ONE (09:01)
[2017-03-14] MEDS ORDERED: NS 275ml ONE (09:01)
--- NOTE | 2017-03-14 09:24 | Diagnostic Imaging Report ---
Indications: Intubation Technique: Portable AP chest Findings: Comparison: 03/01/17 Endotracheal tube has been placed, tip 6 cm above jarvis. Pulmonary inflation has improved. Size of cardiac silhouette has apparently decreased. Diffuse bilateral interstitial infiltrates persist, apparently increased. Alveolar consolidation right upper lobe has decreased. No other interval change. IMPRESSION: Endotracheal tube in good position Decrease in right upper lobe alveolar opacity compatible with resolving pneumonia Increased bilateral interstitial infiltrates suggests pulmonary edema/congestive heart failure despite apparent increase in heart size which may be related to improved pulmonary inflation
--- NOTE | 2017-03-14 09:56 | Consultation ---
Consult Note Consult Note History of Present Illness 82-year-old male coming from half-way with increasing congestion and respiratory distress. He has multiple medical problem including aspiration pneumonia, diabetes, hypertension and renal failure and was recently discharged. He is a full code and recently had a G-tube placed and treated for pneumonia and now transferred by 911 and required intubation. Patient presents with worsening congestion and she required intubation in the ER. History is from the half-way discussion and records. Patient is now sedated. Patient has been labile requiring frequent hospitalizations. PAST MEDICAL HISTORY: GT pacemaker, BPH, CAD, hypertension, hypertensive heart disease, peptic ulcer disease, insulin-dependent diabetes, chronic kidney disease, anemia, and possible underlying history of COPD. foot ulcer- unstageable, PAF, permanent pacemaker, VRE, diabetes MEDICATIONS: Reviewed. ALLERGIES: Reviewed. SOCIAL HISTORY: Nonsmoker and nondrinker. [facility]-way patient. FAMILY HISTORY: Noncontributory. Not available. REVIEW OF SYSTEMS: Difficult to obtain. PHYSICAL EXAMINATION: GENERAL: The patient is awake, male, mild distress, mild congestion, not a reliable historian. VITAL SIGNS: Saturation 98% on room air, respirations 18, temperature 98.2 degrees, and blood pressure 98/49. HEENT: Oropharynx is moist. Gag present. NECK: Supple. Carotids 2+. LUNGS: Coarse breath sounds and scattered rhonchi. No wheezes. CARDIAC: S1 and S2. Regular rate and rhythm. Soft at the parasternal border. No rubs or gallops. ABDOMEN: Soft and nontender. No distention. no HSM; GT EXTREMITIES: No cyanosis. No clubbing. No edema. left heel wound NEUROLOGIC: Grossly nonfocal.sedated Labs Test 03/13/17 18:10 03/13/17 18:40 03/13/17 19:07 03/13/17 21:00 White Blood Count 20.1 K/UL (4.8-10.8) Red Blood Count 3.37 M/UL (4.70-6.10) Hemoglobin 10.3 G/DL (14.2-18.0) Hematocrit 31.1 % (42.0-52.0) Mean Corpuscular Volume 92 FL (80-99) Mean Corpuscular Hemoglobin 30.7 PG (27.0-31.0) Mean Corpuscular Hemoglobin Concent 33.3 G/DL (32.0-36.0) Red Cell Distribution Width 14.5 % (11.6-14.8) Platelet Count 382 K/UL (150-450) Mean Platelet Volume 7.0 FL (6.5-10.1) Neutrophils (%) (Auto) % (45.0-75.0) Lymphocytes (%) (Auto) % (20.0-45.0) Monocytes (%) (Auto) % (1.0-10.0) Eosinophils (%) (Auto) % (0.0-3.0) Basophils (%) (Auto) % (0.0-2.0) Differential Total Cells Counted 100 Neutrophils % (Manual) 62 % (45-75) Lymphocytes % (Manual) 21 % (20-45) Monocytes % (Manual) 14 % (1-10) Eosinophils % (Manual) 0 % (0-3) Basophils % (Manual) 0 % (0-2) Band Neutrophils 3 % (0-8) Platelet Estimate Adequate Platelet Morphology Normal Red Blood Cell Morphology Normal Prothrombin Time 12.5 SEC (9.30-11.50) Prothromb Time International Ratio 1.2 (0.9-1.1) Activated Partial Thromboplast Time 26 SEC (23-33) Sodium Level 144 mEQ/L (135-145) Potassium Level 4.6 mEQ/L (3.4-4.9) Chloride Level 105 mEQ/L (98-107) Carbon Dioxide Level 23 mEQ/L (20-30) Anion Gap 16 (5-15) Blood Urea Nitrogen 54 mg/dL (7-23) Creatinine 1.3 mg/dL (0.7-1.2) Estimat Glomerular Filtration Rate mL/min (>60) Glucose Level 201 mg/dL (74-106) Lactic Acid Level 4.90 mmol/L (0.66-2.22) 4.50 mmol/L (0.66-2.22) Calcium Level 8.8 mg/dL (8.6-10.2) Total Bilirubin 0.3 mg/dL (0.0-1.2) Aspartate Amino Transf (AST/SGOT) 31 U/L (5-40) Alanine Aminotransferase (ALT/SGPT) 22 U/L (3-41) Alkaline Phosphatase 44 U/L (40-129) Total Creatine Kinase 1063 U/L (38-174) Troponin I < 0.30 ng/mL (<=0.30) Pro-B-Type Natriuretic Peptide 7625 pg/mL (0-450) Total Protein 7.4 g/dL (6.6-8.7) Albumin 2.8 g/dL (3.5-5.2) Globulin 4.6 g/dL Albumin/Globulin Ratio 0.6 (1.0-2.7) Urine Color Yellow Urine Appearance Cloudy Urine pH 6 (4.5-8.0) Urine Specific [place] 1.010 (1.005-1.035) Urine Protein 3+ (NEGATIVE) Urine Glucose (UA) Negative (NEGATIVE) Urine Ketones Negative (NEGATIVE) Urine Occult Blood 3+ (NEGATIVE) Urine Nitrite Negative (NEGATIVE) Urine Bilirubin Negative (NEGATIVE) Urine Urobilinogen Normal MG/DL (0.0-1.0) Urine Leukocyte Esterase 3+ (NEGATIVE) Urine RBC 0-2 /HPF (0 - 0) Urine WBC Tntc /HPF (0 - 0) Urine Squamous Epithelial Cells None /LPF (NONE/OCC) Urine Bacteria Moderate /HPF (NONE) Urine Yeast Moderate /HPF (NONE) Arterial Blood pH 7.316 (7.350-7.450) Arterial Blood Partial Pressure CO2 44.3 mmHg (35.0-45.0) Arterial Blood Partial Pressure O2 105.1 mmHg (75.0-100.0) Arterial Blood HCO3 22.1 mmol/L (22.0-26.0) Arterial Blood Oxygen Saturation 96.3 % (92.0-98.0) Arterial Blood Base Excess -3.9 Yosvany Test Positive Test 03/14/17 05:15 03/14/17 08:16 03/14/17 08:45 White Blood Count 8.3 K/UL (4.8-10.8) Red Blood Count 2.84 M/UL (4.70-6.10) Hemoglobin 8.6 G/DL (14.2-18.0) Hematocrit 26.3 % (42.0-52.0) Mean Corpuscular Volume 93 FL (80-99) Mean Corpuscular Hemoglobin 30.2 PG (27.0-31.0) Mean Corpuscular Hemoglobin Concent 32.6 G/DL (32.0-36.0) Red Cell Distribution Width 14.2 % (11.6-14.8) Platelet Count 292 K/UL (150-450) Mean Platelet Volume 7.1 FL (6.5-10.1) Neutrophils (%) (Auto) 74.6 % (45.0-75.0) Lymphocytes (%) (Auto) 18.7 % (20.0-45.0) Monocytes (%) (Auto) 4.9 % (1.0-10.0) Eosinophils (%) (Auto) 0.2 % (0.0-3.0) Basophils (%) (Auto) 1.5 % (0.0-2.0) Sodium Level 141 mEQ/L (135-145) Potassium Level 4.3 mEQ/L (3.4-4.9) Chloride Level 103 mEQ/L (98-107) Carbon Dioxide Level 18 mEQ/L (20-30) Anion Gap 20 (5-15) Blood Urea Nitrogen 60 mg/dL (7-23) Creatinine 1.4 mg/dL (0.7-1.2) Estimat Glomerular Filtration Rate mL/min (>60) Glucose Level 186 mg/dL (74-106) Lactic Acid Level 3.80 mmol/L (0.66-2.22) 3.30 mmol/L (0.66-2.22) Calcium Level 7.7 mg/dL (8.6-10.2) Arterial Blood pH 7.360 (7.350-7.450) Arterial Blood Partial Pressure CO2 36.9 mmHg (35.0-45.0) Arterial Blood Partial Pressure O2 100.7 mmHg (75.0-100.0) Arterial Blood HCO3 20.5 mmol/L (22.0-26.0) Arterial Blood Oxygen Saturation 96.7 % (92.0-98.0) Arterial Blood Base Excess -4.5 Yosvany Test Positive 1. Respiratory failure 2. Chronic renal failure. 3. Anemia. 4. Leukocytosis, improved 5. Unstageable left heel ulcer, chronic 6. Acute on chronic encephalopathy. 7. Gastrostomy tube 8. Aspiration. 9. Paroxysmal atrial fibrillation. 10. Permanent pacemaker. 11. History of Klebsiella urinary tract infection. 12. Failure to thrive 13. Hypertension. 14. Diabetes mellitus. 15. lactic acidosis PLAN care noted and reviewed IV antibiotics respiratory care Ventilatory as is [facility] supportive care as outlined suction as needed no wean today oxygen therapy prognosis guarded medications/laboratory data/nursing notes/ICU care reviewed in detail note reviewed and edited care discussed with RN and RT ICU time spent 37 minutes REJI OJEDA Mar 14, 2017 09:56
[2017-03-14 16:36] LABS: REFLEX LACTIC ACID YES OR NO YES
[2017-03-14] MEDS ORDERED: Cefepime HCl 1 GM in NS 55 ML IVPB SCH (18:00)
[2017-03-14] MEDS ORDERED: Digoxin 0.5mg/2ml Inj IVP ONE ×2 (20:45→23:30)
[2017-03-14] MEDS ORDERED: Dyna-Hex 2% Top Sol 8oz TOPIC SCH (21:00)
[2017-03-14] MEDS: Vancomycin 1gm/D5W 275ml IVPB SCH ×2 (21:04)
--- NOTE | 2017-03-14 23:00 | History and Physical Report ---
DATE OF ADMISSION: 03/13/2017 CHIEF COMPLAINT: Respiratory failure and septic shock. HISTORY OF PRESENT ILLNESS: The patient is an unfortunate 82-year-old male. He has a history of dementia, aspiration pneumonia, dysphagia, status post G-tube, history of conduction system disease, status post pacemaker, diabetes, chronic kidney disease, and chronic obstructive pulmonary disease, who was transferred from the custodial facility with complaints of shortness of breath, fevers, and chills. On evaluation in the emergency room, the patient was hypoxic. He was initially placed on BiPAP. He had an episode of vomiting, continued congestion, and respiratory distress and was intubated. He was bolused fluids and was started on broad-spectrum antibiotics for possible aspiration pneumonia and sepsis. Central line was placed for pressors and the patient now intubated in the intensive care unit. He is currently sedated. PAST MEDICAL HISTORY: As above. PAST SURGICAL HISTORY: Includes a G-tube and a pacemaker. CURRENT MEDICATIONS: Reconciled and reviewed. ALLERGIES: None. SOCIAL HISTORY: Negative for tobacco, ethanol, or drugs. The patient is a Full Code. FAMILY HISTORY: None. REVIEW OF SYSTEMS: Review of systems from the patient is unobtainable as he is currently intubated and sedated. PHYSICAL EXAMINATION: VITAL SIGNS: Temperature was 98.6, blood pressure 98/49, respirations 25, and pulse of 93. GENERAL: The patient is a chronically ill-appearing male, in no apparent distress. HEART: Regular rate and rhythm. LUNGS: Scattered rhonchi. ABDOMEN: Soft, nontender, and nondistended. EXTREMITIES: Without clubbing, cyanosis, or edema. G-tube site is clean. LABORATORY DATA: Laboratory showed a white count of 20,000 and hemoglobin 10. Sodium 141, potassium 4.3, chloride 103, bicarbonate 18, BUN 60, and creatinine 1.4. Lactic acid level initially was 4.9. Urine showed too numerous to count WBCs. Chest x-ray showed bibasilar infiltrates. ASSESSMENT: This is an unfortunate male with complaints of respiratory failure, septic shock, and lactic acidosis. The patient has a history of conduction system disease, status post pacemaker. He has acute renal failure, dehydration, and encephalopathy. PLAN: Broad-spectrum IV antibiotics. Continue support. Wean pressors. . DVT and stress ulcer prophylaxis. Monitor chest x-ray and blood gases. Monitor lactic acid level. The patient's status is currently critical and guarded. Rajeev Carlos M.D. DR: MARY JOB#: [id number] CC:
[2017-03-15] VITALS (76 sets, daily range): BP systolic 84–126; BP diastolic 31–74
[2017-03-15] MEDS: Midazolam for drip 50 MG in D5W 90 ML IV SCH ×2 (00:49→21:53)
[2017-03-15] MEDS ORDERED: Digoxin 0.5mg/2ml Inj IVP ONE (02:30)
--- NOTE | 2017-03-15 03:30 | Consultation ---
DATE OF CONSULTATION: 03/13/2017 CARDIOLOGY CONSULTATION REQUESTING PHYSICIAN: Rajeev Carlos M.D. REASON FOR CONSULTATION: Hypotension. HISTORY OF PRESENT ILLNESS: This is an 82-year-old, male, residing at a [facility] facility. He was referred to the emergency room for evaluation of respiratory distress, hypotension and fevers. I have been asked to assist with cardiovascular care. The patient was seen in the emergency room with a temperature of 103. He was hypoxic. His blood pressure was 84 systolic. He was given fluid challenges, but failed to improve. He was started on pressor support and admitted to the intensive care unit. He also required intubation and mechanical ventilation. PAST MEDICAL HISTORY: 1. Chronic kidney disease. 2. Cerebrovascular disease with dementia. 3. Peripheral artery disease. 4. Left heel ulcer. 5. Dysphagia with G-tube. 6. Paroxysmal atrial fibrillation. 7. Permanent pacemaker. 8. History of vancomycin resistant enterococcus colonization of the gastrointestinal tract. 9. Hypertensive heart disease. 10. Type 2 diabetes mellitus. ALLERGIES: None. MEDICATIONS: Prior to admission, reviewed and reconciled. FAMILY HISTORY: Not known. SOCIAL HISTORY: No record of smoking or alcohol abuse. REVIEW OF SYSTEMS: He had an echocardiogram during his last hospitalization here and was noted to have a normal ejection fraction with mild valvular regurgitation. He had a [employer] pacemaker that was interrogated several weeks approximately two weeks ago and noted to be functioning appropriately with adequate battery life. PHYSICAL EXAMINATION: GENERAL: Orally intubated. Sedated. VITAL SIGNS: Blood pressure 84/72, pulse 98, respirations 26, and temperature 103.0 earlier now 100. HEENT: Temporal wasting. Pale conjunctivae. Arcus senilis. Mucous membranes dry. NECK: Supple. Jugular venous pressure normal. LUNGS: With bilateral rales. CARDIAC: Regular rhythm. Rapid rate. Normal S1 and S2. ABDOMEN: Soft. G-tube intact. EXTREMITIES: With no edema. He withdraws to pain. There is a central line in the right femoral region with no signs of associated bleeding. LABORATORY AND DIAGNOSTIC DATA: White count 20 and hemoglobin 10.3. Sodium 144, potassium 4.6, bicarbonate 23, BUN 54, and creatinine 1.3. Lactic acid is 4.9. Glucose is 201. Pro-natriuretic peptide is 7600. Albumin is 2.8. Urinalysis with 3+ leukocyte esterase, moderate yeast, moderate bacteria, and too numerous to count white cells. EKG with sinus rhythm with nonspecific ST-T wave changes. Chest x-ray reveals bilateral infiltrates. IMPRESSION: 1. Sepsis with shock. 2. Secondary sinus tachycardia. 3. Permanent pacemaker. 4. Paroxysmal atrial fibrillation. 5. Acute and chronic diastolic congestive heart failure. 6. Healthcare-acquired aspiration pneumonia. 7. Urinary tract infection. 8. Acute respiratory failure. 9. Toxic and metabolic encephalopathies. 10. Condition critical. 11. Prognosis guarded. 12. Lactic acidosis. 13. Type 2 diabetes mellitus. PLAN: 1. Pancultured. 2. Broad-spectrum antibiotics. 3. Ventilator support. 4. Fluid hydration. 5. Monitor for cardiac arrhythmias. 6. Taper off pressors as able. 7. Continue volume resuscitation. 8. Stress ulcer and DVT prophylaxis. 9. Insulin coverage by sliding scale. Stanislav Jain M.D. DR: SANDEEP JOB#: [id number] CC:
--- NOTE | 2017-03-15 03:30 | Progress Note ---
DATE: 03/14/2017 CARDIOLOGY PROGRESS NOTE SUBJECTIVE: The patient has developed rapid atrial fibrillation with rapid ventricular response. He has a prior history of paroxysmal atrial fibrillation. He remains on high-dose pressors namely Levophed with blood pressure still in the range of 80 systolic. The patient is orally intubated. Mechanically ventilated. OBJECTIVE: VITAL SIGNS: Blood pressure 86/56, pulse 140, respirations 20, and afebrile. T-max is 103. HEENT: Temporal wasting. Dry mucous membranes. NECK: Supple. LUNGS: With coarse breath sounds and rhonchi. CARDIAC: Irregularly irregular rhythm. Rapid rate. Normal S1 and S2. ABDOMEN: Soft. EXTREMITIES: With trace edema and contractures. LABORATORY DATA: Sodium 141, potassium 4.3, bicarbonate 18, BUN 60, creatinine 1.4, and glucose 186. Lactic acid is 4.5 last night and today it is 3.8. White count is 8.1 and hemoglobin 8.6. ABG 7.36, 37 and 100. IMPRESSION: 1. Sepsis shock. 2. Lactic acidosis. 3. Healthcare-acquired pneumonia. 4. Paroxysmal atrial fibrillation with rapid ventricular response. 5. Urinary tract infection. 6. Type 2 diabetes mellitus on insulin. 7. Respiratory failure. 8. Condition remains critical. 9. Prognosis guarded. 10. Permanent pacemaker. PLAN: 1. Ventilator support. 2. Broad-spectrum antibiotics. 3. Volume resuscitation. 4. Taper pressors. 5. Digitalization with IV digoxin. 6. DVT and stress ulcer prophylaxis. 7. No plan for anticoagulation in this clinical setting and based on increased risk to benefit ratio. Stanislav Jain M.D. DR: SANDEEP JOB#: [id number] CC:
[2017-03-15 05:24] LABS: MEAN CORPUSCULAR HEMOGLOBIN 29.6 PG (27.0-31.0); MEAN CORPUSCULAR HGB CONC 31.7 G/DL (32.0-36.0); MEAN CORPUSCULAR VOLUME 93 FL (80-99); PLATELET COUNT 251 K/UL (150-450); RED BLOOD COUNT 2.65 M/UL (4.70-6.10); RED CELL DISTRIBUTION WIDTH 14.4 % (11.6-14.8); WHITE BLOOD COUNT 9.8 K/UL (4.8-10.8)
[2017-03-15 05:32] LABS: ALANINE AMINOTRANSFERASE 16 U/L (3-41); ALBUMIN/GLOBULIN RATIO 0.4 (1.0-2.7); ANION GAP 19 (5-15); ASPARTATE AMINO TRANSFERASE 31 U/L (5-40); CALCIUM 7.4 mg/dL (8.6-10.2); CARBON DIOXIDE 18 mEQ/L (20-30); CHLORIDE 104 mEQ/L (98-107); CREATININE 1.3 mg/dL (0.7-1.2); HEMOLYSIS 7; POTASSIUM 4.3 mEQ/L (3.4-4.9); SODIUM 141 mEQ/L (135-145); TOTAL PROTEIN 5.7 g/dL (6.6-8.7)
[2017-03-15] MEDS: Piperacillin/Tazobactam 3.375 GM in D5W 110 ML IVPB SCH ×2 (05:39→13:19)
[2017-03-15] MEDS: NovoLOG Insulin Flexpen SUBQ SCH ×4 (05:41→23:35)
[2017-03-15 05:44] LABS: REFLEX LACTIC ACID YES OR NO YES
[2017-03-15 08:37] LABS: ANISOCYTOSIS 1+; BAND NEUTROPHILS % (MANUAL) 10 % (0-8); BASOPHILS % (MANUAL) 0 % (0-2); EOSINOPHILS % (MANUAL) 1 % (0-3); HYPOCHROMASIA 1+; LYMPHOCYTES % (MANUAL) 14 % (20-45); NEUTROPHILS % (MANUAL) 73 % (45-75); PLATELET ESTIMATE ADEQUATE; PLATELET MORPHOLOGY NORMAL; TOTAL CELLS COUNTED 100
[2017-03-15] MEDS: Heparin 2000 units/Ns 1000ml INJ SCH (08:45)
[2017-03-15] MEDS: Lidocaine 1% Plain 30 ml INJ SCH (08:45)
--- NOTE | 2017-03-15 08:55 | Diagnostic Imaging Report ---
Indications: Shortness of breath Technique: Portable AP chest Findings: Comparison: 03/13/2017 Pulmonary inflation has decreased. Patchy airspace opacities have developed over persistent bilateral interstitial infiltrates. Cardio mediastinal silhouette stable. No new abnormality identified. IMPRESSION: Findings compatible with worsening congestive heart failure versus development of superimposed bilateral pneumonias
[2017-03-15] MEDS: Ferrous Sulfate 300 MG/5 ML UDC GT SCH (09:16)
[2017-03-15] MEDS: sitaGLIPtin 25mg tab GT SCH (09:16)
[2017-03-15] MEDS: Tamsulosin 0.4mg cap GT SCH (09:17)
[2017-03-15] MEDS: Ascorbic Acid 500mg tab ORAL SCH (09:17)
[2017-03-15] MEDS: Heparin 5000 units/ml inj SUBQ SCH ×2 (09:19→20:31)
[2017-03-15 09:42] LABS: ABG PCO2 29.9 mmHg (35.0-45.0)
[2017-03-15 09:43] LABS: ABG ALLEN TEST POSITIVE
--- NOTE | 2017-03-15 09:44 | Critical Care Progress Note ---
Critical Care - Subjective I&O: Intake and Output 03/14/17 03/15/17 19:00 07:00 Intake Total 2092.00 ml 3403.916 ml Output Total 505 ml 760 ml Balance 1587.00 ml 2643.916 ml Intake Free Water 200 ml IV Total 2092.00 ml 2983.916 ml Tube Feeding 220 ml Output Urine Total 505 ml 760 ml Critical Care - Objective ET-Tube: 8.0 ET Position: 24 Last 24 Hour Vital Signs Date Time Temp Pulse Resp B/P Pulse Ox O2 Delivery O2 Flow Rate FiO2 03/15/17 08:52 92 24 30 03/15/17 08:00 97 03/15/17 08:00 30 03/15/17 07:00 92 23 102/44 99 Mechanical Ventilator 03/15/17 07:00 24 03/15/17 07:00 102/44 03/15/17 06:45 98 23 102/44 99 Mechanical Ventilator 03/15/17 06:41 99.5 03/15/17 06:39 96 26 30 03/15/17 06:30 100 23 90/35 99 Mechanical Ventilator 03/15/17 06:15 91 23 96/36 99 Mechanical Ventilator 03/15/17 06:00 99.5 98 23 96/39 99 Mechanical Ventilator 03/15/17 06:00 24 03/15/17 06:00 90/40 03/15/17 05:52 98/45 03/15/17 05:45 102 23 90/40 99 Mechanical Ventilator 03/15/17 05:30 93 23 102/53 99 Mechanical Ventilator 03/15/17 05:15 106 23 107/45 99 Mechanical Ventilator 03/15/17 05:07 102 31 30 03/15/17 05:00 104 23 107/45 99 Mechanical Ventilator 03/15/17 05:00 105 03/15/17 05:00 24 03/15/17 05:00 107/45 03/15/17 04:45 107 23 100/42 99 Mechanical Ventilator 03/15/17 04:30 107 23 106/40 99 Mechanical Ventilator 03/15/17 04:15 108 23 103/51 99 Mechanical Ventilator 03/15/17 04:00 30 03/15/17 04:00 26 03/15/17 04:00 110/55 03/15/17 04:00 99.1 105 23 110/55 99 Mechanical Ventilator 30 03/15/17 03:45 108 23 103/51 99 Mechanical Ventilator 30 03/15/17 03:30 105 23 122/51 99 Mechanical Ventilator 30 03/15/17 03:15 106 23 122/51 99 Mechanical Ventilator 30 03/15/17 03:02 106 23 30 03/15/17 03:00 109 24 126/52 99 Mechanical Ventilator 30 03/15/17 03:00 24 03/15/17 03:00 116/52 03/15/17 02:45 104 26 116/56 99 Mechanical Ventilator 30 03/15/17 02:33 107 03/15/17 02:30 103 26 111/52 99 Mechanical Ventilator 30 03/15/17 02:15 106 26 111/51 99 Mechanical Ventilator 30 03/15/17 02:00 105 24 101/61 99 Mechanical Ventilator 30 03/15/17 02:00 22 03/15/17 02:00 98/43 03/15/17 01:45 104 24 98/48 99 Mechanical Ventilator 30 03/15/17 01:30 102 26 102/51 99 Mechanical Ventilator 30 03/15/17 01:15 110 30 111/61 97 Mechanical Ventilator 30 03/15/17 01:04 115 31 30 03/15/17 01:00 112 25 110/38 98 Mechanical Ventilator 30 03/15/17 01:00 24 03/15/17 01:00 102/51 03/15/17 00:49 24 03/15/17 00:45 111 30 115/56 98 Mechanical Ventilator 30 03/15/17 00:30 105 25 105/61 98 Mechanical Ventilator 30 03/15/17 00:15 109 25 109/58 98 Mechanical Ventilator 30 03/15/17 00:00 30 03/15/17 00:00 99.2 122 25 111/61 97 Mechanical Ventilator 30 03/15/17 00:00 22 03/15/17 00:00 111/61 03/15/17 00:00 110 03/14/17 23:45 128 25 115/50 97 Mechanical Ventilator 30 03/14/17 23:30 125 03/14/17 23:30 119 27 112/55 97 Mechanical Ventilator 30 03/14/17 23:15 133 28 114/39 96 Mechanical Ventilator 30 03/14/17 23:00 22 03/14/17 23:00 116/43 7 23:00 145 25 116/53 98 Mechanical Ventilator 30 03/14/17 22:50 105/55 03/14/17 22:30 134 25 105/55 98 Mechanical Ventilator 30 03/14/17 22:15 139 29 92/48 98 Mechanical Ventilator 30 03/14/17 22:05 22 03/14/17 22:05 88/45 03/14/17 22:00 130 29 90/52 98 Mechanical Ventilator 30 03/14/17 21:45 130 29 90/52 98 Mechanical Ventilator 30 03/14/17 21:30 134 29 109/57 98 Mechanical Ventilator 30 03/14/17 21:15 136 29 93/45 98 Mechanical Ventilator 30 03/14/17 21:14 138 30 30 03/14/17 21:00 135 29 102/61 98 Mechanical Ventilator 30 03/14/17 21:00 21 03/14/17 21:00 95/50 03/14/17 20:59 146 03/14/17 20:45 98.7 143 29 102/61 98 Mechanical Ventilator 30 03/14/17 20:30 123 29 86/56 100 Mechanical Ventilator 30 03/14/17 20:00 142 03/14/17 20:00 30 03/14/17 20:00 25 03/14/17 20:00 84/44 03/14/17 19:12 153 35 30 03/14/17 19:00 34 03/14/17 19:00 98/55 03/14/17 19:00 150 34 99/55 97 Mechanical Ventilator 30 03/14/17 18:30 133 35 104/50 98 Mechanical Ventilator 30 03/14/17 18:00 117 28 119/55 96 Mechanical Ventilator 30 03/14/17 18:00 31 03/14/17 18:00 81/61 03/14/17 17:30 99 28 110/53 96 Mechanical Ventilator 30 03/14/17 17:20 98 28 30 03/14/17 17:02 114/44 03/14/17 17:00 29 03/14/17 17:00 110/53 03/14/17 17:00 99 29 114/44 98 Mechanical Ventilator 30 03/14/17 16:45 100 28 111/44 97 Mechanical Ventilator 30 03/14/17 16:30 96 28 126/59 97 Mechanical Ventilator 30 7/8/17 16:15 100 32 101/53 96 Mechanical Ventilator 30 7/8/17 16:00 99.0 103 31 100/53 97 Mechanical Ventilator 30 7/8/17 16:00 31 7/8/17 16:00 115/51 7/8/17 16:00 99 7/8/17 16:00 30 7/8/17 15:45 99 28 111/53 97 Mechanical Ventilator 30 7/8/17 15:30 102 28 104/46 97 Mechanical Ventilator 30 7/8/17 15:20 108 28 30 7/8/17 15:15 102 29 117/54 97 Mechanical Ventilator 30 7/8/17 15:00 29 7/8/17 15:00 117/54 7/8/17 15:00 102 29 117/54 97 Mechanical Ventilator 30 7/8/17 14:45 101 29 113/50 97 Mechanical Ventilator 31 7/8/17 14:30 101 29 101/50 97 Mechanical Ventilator 31 7/8/17 14:15 102 29 95/51 97 Mechanical Ventilator 31 7/8/17 14:00 101 29 102/50 97 Mechanical Ventilator 31 7/8/17 14:00 29 7/8/17 14:00 102/50 7/8/17 13:45 103 29 94/48 98 Mechanical Ventilator 31 7/8/17 13:30 103 30 106/52 97 Mechanical Ventilator 31 7/8/17 13:15 98 24 117/55 97 Mechanical Ventilator 31 7/8/17 13:00 101 30 117/52 97 Mechanical Ventilator 31 7/8/17 13:00 30 7/8/17 13:00 117/55 7/8/17 12:45 99 30 114/51 97 Mechanical Ventilator 31 7/8/17 12:37 101 31 30 7/8/17 12:30 100 28 121/55 96 Mechanical Ventilator 31 7/8/17 12:15 98 28 106/49 95 Mechanical Ventilator 30 7/8/17 12:00 99.4 99 32 112/53 95 Mechanical Ventilator 30 7/8/17 12:00 28 7/8/17 12:00 30 7/8/17 12:00 92 7/8/17 11:51 117/51 7/8/17 11:30 97 27 108/49 94 Mechanical Ventilator 30 7/8/17 11:00 94 27 103/50 95 Mechanical Ventilator 30 03/14/17 11:00 27 03/14/17 10:43 97 27 30 03/14/17 10:30 94 27 76/47 97 Mechanical Ventilator 30 03/14/17 10:00 27 03/14/17 10:00 97 26 99/58 97 Mechanical Ventilator 30 Micro: Microbiology Date/Time Source Procedure Growth Status 03/13/17 18:00 Blood Blood Culture - Preliminary NO GROWTH AFTER 24 HOURS Resulted 03/13/17 17:45 Blood Blood Culture - Preliminary NO GROWTH AFTER 24 HOURS Resulted 03/13/17 18:40 Urine,Clean Catch Urine Culture - Preliminary NO GROWTH Resulted Accucheck: 130 REJI OJEDA Mar 15, 2017 09:44
--- NOTE | 2017-03-15 09:47 | Critical Care Progress Note ---
Assessment/Plan Assessment/Plan 1. Respiratory failure 2. Chronic renal failure. 3. Anemia. 4. Leukocytosis, improved 5. Unstageable left heel ulcer, chronic 6. Acute on chronic encephalopathy. 7. Gastrostomy tube 8. Aspiration. 9. Paroxysmal atrial fibrillation. 10. Permanent pacemaker. 11. History of Klebsiella urinary tract infection. 12. Failure to thrive 13. Hypertension. 14. Diabetes mellitus. 15. lactic acidosis PLAN care noted and reviewed IV antibiotics noted respiratory care as outlined wean as able Ventilatory care noted SNF meds on board supportive care as outlined suction as needed nutrition oxygen therapy prognosis guarded medications/laboratory data/nursing notes/ICU care reviewed in detail note reviewed and edited care discussed with RN and RT ICU time spent 38 minutes Critical Care - Subjective Interval Events: care noted and reviewed remains critical no distress ICU care reviewed ROS Limited/Unobtainable: Yes Condition: critical EKG Rhythm: Sinus Rhythm Residuals: minimal Tube Feeding Tolerated: yes I&O: Intake and Output 03/14/17 03/15/17 19:00 07:00 Intake Total 2092.00 ml 3403.916 ml Output Total 505 ml 760 ml Balance 1587.00 ml 2643.916 ml Intake Free Water 200 ml IV Total 2092.00 ml 2983.916 ml Tube Feeding 220 ml Output Urine Total 505 ml 760 ml Critical Care - Objective CXR: pulmonary edema ET-Tube: 8.0 ET Position: 24 Last 24 Hour Vital Signs Date Time Temp Pulse Resp B/P Pulse Ox O2 Delivery O2 Flow Rate FiO2 03/15/17 08:52 92 24 30 03/15/17 08:00 97 03/15/17 08:00 30 03/15/17 07:00 92 23 102/44 99 Mechanical Ventilator 03/15/17 07:00 24 03/15/17 07:00 102/44 03/15/17 06:45 98 23 102/44 99 Mechanical Ventilator 03/15/17 06:41 99.5 03/15/17 06:39 96 26 30 03/15/17 06:30 100 23 90/35 99 Mechanical Ventilator 03/15/17 06:15 91 23 96/36 99 Mechanical Ventilator 03/15/17 06:00 99.5 98 23 96/39 99 Mechanical Ventilator 03/15/17 06:00 24 03/15/17 06:00 90/40 03/15/17 05:52 98/45 03/15/17 05:45 102 23 90/40 99 Mechanical Ventilator 30 03/15/17 05:30 93 23 102/53 99 Mechanical Ventilator 30 03/15/17 05:15 106 23 107/45 99 Mechanical Ventilator 30 03/15/17 05:07 102 31 30 03/15/17 05:00 104 23 107/45 99 Mechanical Ventilator 30 03/15/17 05:00 105 03/15/17 05:00 24 03/15/17 05:00 107/45 03/15/17 04:45 107 23 100/42 99 Mechanical Ventilator 30 03/15/17 04:30 107 23 106/40 99 Mechanical Ventilator 30 03/15/17 04:15 108 23 103/51 99 Mechanical Ventilator 30 03/15/17 04:00 30 03/15/17 04:00 26 03/15/17 04:00 110/55 03/15/17 04:00 99.1 105 23 110/55 99 Mechanical Ventilator 30 03/15/17 03:45 108 23 103/51 99 Mechanical Ventilator 30 03/15/17 03:30 105 23 122/51 99 Mechanical Ventilator 30 03/15/17 03:15 106 23 122/51 99 Mechanical Ventilator 30 03/15/17 03:02 106 23 30 03/15/17 03:00 109 24 126/52 99 Mechanical Ventilator 30 03/15/17 03:00 03/15/17 03:00 116/52 03/15/17 02:45 104 26 116/56 99 Mechanical Ventilator 30 03/15/17 02:33 107 03/15/17 02:30 103 26 111/52 99 Mechanical Ventilator 30 03/15/17 02:15 106 26 111/51 99 Mechanical Ventilator 30 03/15/17 02:00 105 24 101/61 99 Mechanical Ventilator 30 03/15/17 02:00 03/15/17 02:00 98/43 03/15/17 01:45 104 24 98/48 99 Mechanical Ventilator 30 03/15/17 01:30 102 26 102/51 99 Mechanical Ventilator 30 03/15/17 01:15 110 30 111/61 97 Mechanical Ventilator 30 03/15/17 01:04 115 31 30 03/15/17 01:00 112 25 110/38 98 Mechanical Ventilator 30 03/15/17 01:00 24 03/15/17 01:00 102/51 03/15/17 00:49 24 03/15/17 00:45 111 30 115/56 98 Mechanical Ventilator 30 03/15/17 00:30 105 25 105/61 98 Mechanical Ventilator 30 03/15/17 00:15 109 25 109/58 98 Mechanical Ventilator 30 03/15/17 00:00 30 03/15/17 00:00 99.2 122 25 111/61 97 Mechanical Ventilator 30 03/15/17 00:00 22 03/15/17 00:00 111/61 03/15/17 00:00 110 03/14/17 23:45 128 25 115/50 97 Mechanical Ventilator 30 03/14/17 23:30 125 03/14/17 23:30 119 27 112/55 97 Mechanical Ventilator 30 03/14/17 23:15 133 28 114/39 96 Mechanical Ventilator 30 03/14/17 23:00 22 03/14/17 23:00 116/43 03/14/17 23:00 145 25 116/53 98 Mechanical Ventilator 30 03/14/17 22:50 105/55 03/14/17 22:30 134 25 105/55 98 Mechanical Ventilator 30 03/14/17 22:15 139 29 92/48 98 Mechanical Ventilator 30 03/14/17 22:05 22 03/14/17 22:05 88/45 03/14/17 22:00 130 29 90/52 98 Mechanical Ventilator 30 03/14/17 21:45 130 29 90/52 98 Mechanical Ventilator 30 03/14/17 21:30 134 29 109/57 98 Mechanical Ventilator 30 03/14/17 21:15 136 29 93/45 98 Mechanical Ventilator 30 03/14/17 21:14 138 30 30 03/14/17 21:00 135 29 102/61 98 Mechanical Ventilator 30 03/14/17 21:00 21 03/14/17 21:00 95/50 03/14/17 20:59 146 03/14/17 20:45 98.7 143 29 102/61 98 Mechanical Ventilator 30 03/14/17 20:30 123 29 86/56 100 Mechanical Ventilator 30 03/14/17 20:00 142 8 20:00 30 03/14/17 20:00 25 03/14/17 20:00 84/44 7/8/17 19:12 153 35 30 7/8/17 19:00 34 7/8/17 19:00 98/55 7/8/17 19:00 150 34 99/55 97 Mechanical Ventilator 30 7/8/17 18:30 133 35 104/50 98 Mechanical Ventilator 30 7/8/17 18:00 117 28 119/55 96 Mechanical Ventilator 30 7/8/17 18:00 31 7/8/17 18:00 81/61 7/8/17 17:30 99 28 110/53 96 Mechanical Ventilator 30 7/8/17 17:20 98 28 30 7/8/17 17:02 114/44 7/8/17 17:00 29 7/8/17 17:00 110/53 7/8/17 17:00 99 29 114/44 98 Mechanical Ventilator 30 7/8/17 16:45 100 28 111/44 97 Mechanical Ventilator 30 7/8/17 16:30 96 28 126/59 97 Mechanical Ventilator 30 7/8/17 16:15 100 32 101/53 96 Mechanical Ventilator 30 7/8/17 16:00 99.0 103 31 100/53 97 Mechanical Ventilator 30 7/8/17 16:00 31 7/8/17 16:00 115/51 7/8/17 16:00 99 7/8/17 16:00 30 7/8/17 15:45 99 28 111/53 97 Mechanical Ventilator 30 7/8/17 15:30 102 28 104/46 97 Mechanical Ventilator 30 7/8/17 15:20 108 28 30 7/8/17 15:15 102 29 117/54 97 Mechanical Ventilator 30 7/8/17 15:00 29 7/8/17 15:00 117/54 7/8/17 15:00 102 29 117/54 97 Mechanical Ventilator 30 7/8/17 14:45 101 29 113/50 97 Mechanical Ventilator 31 7/8/17 14:30 101 29 101/50 97 Mechanical Ventilator 31 7/8/17 14:15 102 29 95/51 97 Mechanical Ventilator 31 7/8/17 14:00 101 29 102/50 97 Mechanical Ventilator 31 7/8/17 14:00 29 7/8/17 14:00 102/50 7/8/17 13:45 103 29 94/48 98 Mechanical Ventilator 31 7/8/17 13:30 103 30 106/52 97 Mechanical Ventilator 31 7/8/17 13:15 98 24 117/55 97 Mechanical Ventilator 31 03/14/17 13:00 101 30 117/52 97 Mechanical Ventilator 31 03/14/17 13:00 30 03/14/17 13:00 117/55 03/14/17 12:45 99 30 114/51 97 Mechanical Ventilator 31 03/14/17 12:37 101 31 30 03/14/17 12:30 100 28 121/55 96 Mechanical Ventilator 31 03/14/17 12:15 98 28 106/49 95 Mechanical Ventilator 30 03/14/17 12:00 99.4 99 32 112/53 95 Mechanical Ventilator 30 03/14/17 12:00 28 03/14/17 12:00 30 03/14/17 12:00 92 03/14/17 11:51 117/51 03/14/17 11:30 97 27 108/49 94 Mechanical Ventilator 30 03/14/17 11:00 94 27 103/50 95 Mechanical Ventilator 30 03/14/17 11:00 27 03/14/17 10:43 97 27 30 03/14/17 10:30 94 27 76/47 97 Mechanical Ventilator 30 03/14/17 10:00 27 03/14/17 10:00 97 26 99/58 97 Mechanical Ventilator 30 Labs: Labs Test 03/13/17 18:10 03/13/17 18:40 03/13/17 19:07 03/13/17 21:00 White Blood Count 20.1 K/UL (4.8-10.8) Red Blood Count 3.37 M/UL (4.70-6.10) Hemoglobin 10.3 G/DL (14.2-18.0) Hematocrit 31.1 % (42.0-52.0) Mean Corpuscular Volume 92 FL (80-99) Mean Corpuscular Hemoglobin 30.7 PG (27.0-31.0) Mean Corpuscular Hemoglobin Concent 33.3 G/DL (32.0-36.0) Red Cell Distribution Width 14.5 % (11.6-14.8) Platelet Count 382 K/UL (150-450) Mean Platelet Volume 7.0 FL (6.5-10.1) Neutrophils (%) (Auto) % (45.0-75.0) Lymphocytes (%) (Auto) % (20.0-45.0) Monocytes (%) (Auto) % (1.0-10.0) Eosinophils (%) (Auto) % (0.0-3.0) Basophils (%) (Auto) % (0.0-2.0) Differential Total Cells Counted 100 Neutrophils % (Manual) 62 % (45-75) Lymphocytes % (Manual) 21 % (20-45) Monocytes % (Manual) 14 % (1-10) Eosinophils % (Manual) 0 % (0-3) Basophils % (Manual) 0 % (0-2) Band Neutrophils 3 % (0-8) Platelet Estimate Adequate Platelet Morphology Normal Red Blood Cell Morphology Normal Prothrombin Time 12.5 SEC (9.30-11.50) Prothromb Time International Ratio 1.2 (0.9-1.1) Activated Partial Thromboplast Time 26 SEC (23-33) Sodium Level 144 mEQ/L (135-145) Potassium Level 4.6 mEQ/L (3.4-4.9) Chloride Level 105 mEQ/L (98-107) Carbon Dioxide Level 23 mEQ/L (20-30) Anion Gap 16 (5-15) Blood Urea Nitrogen 54 mg/dL (7-23) Creatinine 1.3 mg/dL (0.7-1.2) Estimat Glomerular Filtration Rate mL/min (>60) Glucose Level 201 mg/dL (74-106) Lactic Acid Level 4.90 mmol/L (0.66-2.22) 4.50 mmol/L (0.66-2.22) Calcium Level 8.8 mg/dL (8.6-10.2) Total Bilirubin 0.3 mg/dL (0.0-1.2) Aspartate Amino Transf (AST/SGOT) 31 U/L (5-40) Alanine Aminotransferase (ALT/SGPT) 22 U/L (3-41) Alkaline Phosphatase 44 U/L (40-129) Total Creatine Kinase 1063 U/L (38-174) Troponin I < 0.30 ng/mL (<=0.30) Pro-B-Type Natriuretic Peptide 7625 pg/mL (0-450) Total Protein 7.4 g/dL (6.6-8.7) Albumin 2.8 g/dL (3.5-5.2) Globulin 4.6 g/dL Albumin/Globulin Ratio 0.6 (1.0-2.7) Urine Color Yellow Urine Appearance Cloudy Urine pH 6 (4.5-8.0) Urine Specific [place] 1.010 (1.005-1.035) Urine Protein 3+ (NEGATIVE) Urine Glucose (UA) Negative (NEGATIVE) Urine Ketones Negative (NEGATIVE) Urine Occult Blood 3+ (NEGATIVE) Urine Nitrite Negative (NEGATIVE) Urine Bilirubin Negative (NEGATIVE) Urine Urobilinogen Normal MG/DL (0.0-1.0) Urine Leukocyte Esterase 3+ (NEGATIVE) Urine RBC 0-2 /HPF (0 - 0) Urine WBC Tntc /HPF (0 - 0) Urine Squamous Epithelial Cells None /LPF (NONE/OCC) Urine Bacteria Moderate /HPF (NONE) Urine Yeast Moderate /HPF (NONE) Arterial Blood pH 7.316 (7.350-7.450) Arterial Blood Partial Pressure CO2 44.3 mmHg (35.0-45.0) Arterial Blood Partial Pressure O2 105.1 mmHg (75.0-100.0) Arterial Blood HCO3 22.1 mmol/L (22.0-26.0) Arterial Blood Oxygen Saturation 96.3 % (92.0-98.0) Arterial Blood Base Excess -3.9 Yosvany Test Positive Test 03/14/17 05:15 03/14/17 08:16 03/14/17 08:45 03/14/17 15:25 White Blood Count 8.3 K/UL (4.8-10.8) Red Blood Count 2.84 M/UL (4.70-6.10) Hemoglobin 8.6 G/DL (14.2-18.0) Hematocrit 26.3 % (42.0-52.0) Mean Corpuscular Volume 93 FL (80-99) Mean Corpuscular Hemoglobin 30.2 PG (27.0-31.0) Mean Corpuscular Hemoglobin Concent 32.6 G/DL (32.0-36.0) Red Cell Distribution Width 14.2 % (11.6-14.8) Platelet Count 292 K/UL (150-450) Mean Platelet Volume 7.1 FL (6.5-10.1) Neutrophils (%) (Auto) 74.6 % (45.0-75.0) Lymphocytes (%) (Auto) 18.7 % (20.0-45.0) Monocytes (%) (Auto) 4.9 % (1.0-10.0) Eosinophils (%) (Auto) 0.2 % (0.0-3.0) Basophils (%) (Auto) 1.5 % (0.0-2.0) Sodium Level 141 mEQ/L (135-145) Potassium Level 4.3 mEQ/L (3.4-4.9) Chloride Level 103 mEQ/L (98-107) Carbon Dioxide Level 18 mEQ/L (20-30) Anion Gap 20 (5-15) Blood Urea Nitrogen 60 mg/dL (7-23) Creatinine 1.4 mg/dL (0.7-1.2) Estimat Glomerular Filtration Rate mL/min (>60) Glucose Level 186 mg/dL (74-106) Lactic Acid Level 3.80 mmol/L (0.66-2.22) 3.30 mmol/L (0.66-2.22) 2.30 mmol/L (0.66-2.22) Calcium Level 7.7 mg/dL (8.6-10.2) Arterial Blood pH 7.360 (7.350-7.450) Arterial Blood Partial Pressure CO2 36.9 mmHg (35.0-45.0) Arterial Blood Partial Pressure O2 100.7 mmHg (75.0-100.0) Arterial Blood HCO3 20.5 mmol/L (22.0-26.0) Arterial Blood Oxygen Saturation 96.7 % (92.0-98.0) Arterial Blood Base Excess -4.5 Yosvany Test Positive Test 03/15/17 03:58 03/15/17 08:30 03/15/17 09:32 White Blood Count 9.8 K/UL (4.8-10.8) Red Blood Count 2.65 M/UL (4.70-6.10) Hemoglobin 7.8 G/DL (14.2-18.0) Hematocrit 24.8 % (42.0-52.0) Mean Corpuscular Volume 93 FL (80-99) Mean Corpuscular Hemoglobin 29.6 PG (27.0-31.0) Mean Corpuscular Hemoglobin Concent 31.7 G/DL (32.0-36.0) Red Cell Distribution Width 14.4 % (11.6-14.8) Platelet Count 251 K/UL (150-450) Mean Platelet Volume 7.0 FL (6.5-10.1) Neutrophils (%) (Auto) % (45.0-75.0) Lymphocytes (%) (Auto) % (20.0-45.0) Monocytes (%) (Auto) % (1.0-10.0) Eosinophils (%) (Auto) % (0.0-3.0) Basophils (%) (Auto) % (0.0-2.0) Differential Total Cells Counted 100 Neutrophils % (Manual) 73 % (45-75) Lymphocytes % (Manual) 14 % (20-45) Monocytes % (Manual) 2 % (1-10) Eosinophils % (Manual) 1 % (0-3) Basophils % (Manual) 0 % (0-2) Band Neutrophils 10 % (0-8) Platelet Estimate Adequate Platelet Morphology Normal Hypochromasia 1+ Anisocytosis 1+ Sodium Level 141 mEQ/L (135-145) Potassium Level 4.3 mEQ/L (3.4-4.9) Chloride Level 104 mEQ/L (98-107) Carbon Dioxide Level 18 mEQ/L (20-30) Anion Gap 19 (5-15) Blood Urea Nitrogen 52 mg/dL (7-23) Creatinine 1.3 mg/dL (0.7-1.2) Estimat Glomerular Filtration Rate mL/min (>60) Glucose Level 123 mg/dL (74-106) Lactic Acid Level 3.20 mmol/L (0.66-2.22) Calcium Level 7.4 mg/dL (8.6-10.2) Total Bilirubin 0.4 mg/dL (0.0-1.2) Aspartate Amino Transf (AST/SGOT) 31 U/L (5-40) Alanine Aminotransferase (ALT/SGPT) 16 U/L (3-41) Alkaline Phosphatase 85 U/L (40-129) Total Protein 5.7 g/dL (6.6-8.7) Albumin 1.7 g/dL (3.5-5.2) Globulin 4.0 g/dL Albumin/Globulin Ratio 0.4 (1.0-2.7) Arterial Blood pH 7.480 (7.350-7.450) Arterial Blood Partial Pressure CO2 29.9 mmHg (35.0-45.0) Arterial Blood Partial Pressure O2 91.9 mmHg (75.0-100.0) Arterial Blood HCO3 18.9 mmol/L (22.0-26.0) Arterial Blood Oxygen Saturation 95.4 % (92.0-98.0) Arterial Blood Base Excess -5.0 Yosvany Test Positive Objective: GENERAL: The patient is sedated on the ventilator HEENT: Oropharynx is moist. Gag present. NECK: Supple. Carotids 2+. LUNGS: Coarse breath sounds and occasional rhonchi. No wheezes. CARDIAC: S1 and S2. Regular rate and rhythm. Soft at the parasternal border. No rubs or gallops. ABDOMEN: Soft and nontender. No distention. no HSM; GT EXTREMITIES: No cyanosis. No clubbing. No edema. left heel wound NEUROLOGIC: Grossly nonfocal.sedated Micro: Microbiology Date/Time Source Procedure Growth Status 03/13/17 18:00 Blood Blood Culture - Preliminary NO GROWTH AFTER 24 HOURS Resulted 03/13/17 17:45 Blood Blood Culture - Preliminary NO GROWTH AFTER 24 HOURS Resulted 03/13/17 18:40 Urine,Clean Catch Urine Culture - Preliminary NO GROWTH Resulted Accucheck: 130 REJI OJEDA Mar 15, 2017 09:47
[2017-03-15 09:53] LABS: REFLEX LACTIC ACID YES OR NO YES
[2017-03-15] MEDS: Vancomycin 1gm/D5W 275ml IVPB SCH ×2 (20:30)
[2017-03-15] MEDS: Dyna-Hex 2% Top Sol 8oz TOPIC SCH (20:30)
[2017-03-16] VITALS (72 sets, daily range): BP systolic 74–182; BP diastolic 33–111
[2017-03-16] MEDS: Piperacillin/Tazobactam 3.375 GM in D5W 110 ML IVPB SCH ×2 (02:32→11:17)
--- NOTE | 2017-03-16 04:30 | Progress Note ---
DATE: 03/15/2017 CARDIOLOGY PROGRESS NOTE SUBJECTIVE: The patient remains on ventilator support. He is non-communicative. The patient developed rapid atrial fibrillation last night. He was digitalized. He remains in atrial fibrillation with demand ventricular pacing, now rate controlled. He has been hypotensive on Levophed and continues to require the pressor support, although tapering has been initiated. PHYSICAL EXAMINATION: VITALS: Blood pressure 98/46, pulse 89, respiratory rate 25, and afebrile. GENERAL: Orally intubated, noncommunicative. LUNGS: Bilateral breath sounds with rhonchi. HEART: Irregularly irregular rhythm. Normal S1, S2. ABDOMEN: Soft. EXTREMITIES: Trace edema. LABORATORY STUDIES: White count 9.8, hemoglobin 7.8. Lactic acid 3.2. BUN 52, creatinine 1.3, sodium 141, potassium 4.3, bicarbonate 18, and albumin 1.7. ABG, pH 7.48, pCO2 30, and pO2 92. IMPRESSION: 1. Shock. 2. Sepsis. 3. Hypovolemia. 4. Anemia. 5. Paroxysmal atrial fibrillation with permanent pacemaker. 6. Acute renal failure. 7. Lactic acidosis. 8. Severe protein-calorie malnutrition. 9. Remains critical and guarded. PLAN: 1. Ventilator support. 2. Broad-spectrum antibiotics. 3. Volume resuscitation. 4. Continue digitalis for rate control. The patient's pacemaker was recently interrogated and functioning appropriately. 5. Continue efforts to taper pressors off. 6. DVT and stress ulcer prophylaxis. 7. Nutritional support by feeding tube with protein supplement. Stanislav Jain M.D. DR: ANA JOB#: [id number] CC:
[2017-03-16 04:47] LABS: MEAN CORPUSCULAR HEMOGLOBIN 29.3 PG (27.0-31.0); MEAN CORPUSCULAR HGB CONC 32.4 G/DL (32.0-36.0); MEAN CORPUSCULAR VOLUME 90 FL (80-99); MEAN PLATELET VOLUME 6.7 FL (6.5-10.1); PLATELET COUNT 232 K/UL (150-450); RED BLOOD COUNT 3.12 M/UL (4.70-6.10); RED CELL DISTRIBUTION WIDTH 13.8 % (11.6-14.8); WHITE BLOOD COUNT 8.7 K/UL (4.8-10.8)
[2017-03-16 05:18] LABS: ALANINE AMINOTRANSFERASE 55 U/L (3-41); ALBUMIN/GLOBULIN RATIO 0.3 (1.0-2.7); ANION GAP 17 (5-15); ASPARTATE AMINO TRANSFERASE 75 U/L (5-40); CALCIUM 7.6 mg/dL (8.6-10.2); CARBON DIOXIDE 18 mEQ/L (20-30); CHLORIDE 107 mEQ/L (98-107); HEMOLYSIS 2; POTASSIUM 4.2 mEQ/L (3.4-4.9); SODIUM 142 mEQ/L (135-145); TOTAL PROTEIN 5.8 g/dL (6.6-8.7)
[2017-03-16] MEDS: NovoLOG Insulin Flexpen SUBQ SCH ×4 (05:32→23:47)
--- NOTE | 2017-03-16 08:19 | Critical Care Progress Note ---
Assessment/Plan Assessment/Plan 1. Respiratory failure 2. Chronic renal failure. 3. Anemia. 4. Leukocytosis, improved 5. Unstageable left heel ulcer, chronic 6. Acute on chronic encephalopathy. 7. Gastrostomy tube 8. Aspiration. 9. Paroxysmal atrial fibrillation. 10. Permanent pacemaker. 11. History of Klebsiella urinary tract infection. 12. Failure to thrive 13. Hypertension. 14. Diabetes mellitus. 15. lactic acidosis PLAN care noted and reviewed IV antibiotics noted- await cultures respiratory care as outlined wean as able off the ventilator Ventilatory care noted SNF meds on board supportive care as outlined suction as needed nutrition tolerated oxygen therapy and titrate prognosis guarded medications/laboratory data/nursing notes/ICU care reviewed in detail note reviewed and edited care discussed with RN and RT ICU time spent 36 minutes Critical Care - Subjective Interval Events: events noted still on full AC mode care noted ROS Limited/Unobtainable: Yes Condition: critical EKG Rhythm: Sinus Rhythm Residuals: minimal Tube Feeding Tolerated: yes I&O: Intake and Output 03/15/17 03/16/17 19:00 07:00 Intake Total 2435.25 ml 2756.25 ml Output Total 635 ml 1030 ml Balance 1800.25 ml 1726.25 ml Intake Free Water 100 ml 150 ml IV Total 1645.25 ml 1951.25 ml Tube Feeding 300 ml 375 ml Blood Product 250 ml 250 ml Other 140 ml 30 ml Output Urine Total 635 ml 1030 ml Critical Care - Objective ET-Tube: 8.0 ET Position: 24 Last 24 Hour Vital Signs Date Time Temp Pulse Resp B/P Pulse Ox O2 Delivery O2 Flow Rate FiO2 03/16/17 07:00 24 03/16/17 07:00 97/42 03/16/17 07:00 80 18 96/45 100 Mechanical Ventilator 50 03/16/17 06:45 80 18 97/42 100 Mechanical Ventilator 50 03/16/17 06:40 77 19 50 03/16/17 06:30 81 18 91/44 100 Mechanical Ventilator 50 03/16/17 06:15 83 18 84/38 100 Mechanical Ventilator 50 03/16/17 06:00 22 03/16/17 06:00 84/38 03/16/17 06:00 83 18 84/38 100 Mechanical Ventilator 50 03/16/17 05:45 80 18 74/37 100 Mechanical Ventilator 50 03/16/17 05:30 94 18 109/46 100 Mechanical Ventilator 50 03/16/17 05:20 83 21 50 03/16/17 05:15 92 18 108/50 100 Mechanical Ventilator 30 03/16/17 05:00 50 03/16/17 05:00 21 03/16/17 05:00 109/50 03/16/17 05:00 91 18 109/50 100 Mechanical Ventilator 30 03/16/17 04:45 83 18 113/45 100 Mechanical Ventilator 30 03/16/17 04:30 95 22 109/51 100 Mechanical Ventilator 30 03/16/17 04:15 91 18 98/51 100 Mechanical Ventilator 30 03/16/17 04:00 94 03/16/17 04:00 22 03/16/17 04:00 79/59 03/16/17 04:00 97.7 93 20 105/45 100 Mechanical Ventilator 30 03/16/17 04:00 100 03/16/17 03:45 96 18 79/59 100 Mechanical Ventilator 30 03/16/17 03:33 100 03/16/17 03:33 104 26 100 03/16/17 03:30 101 24 146/111 100 Mechanical Ventilator 30 03/16/17 03:15 105 18 166/98 100 Mechanical Ventilator 30 03/16/17 03:00 101 18 146/111 100 Mechanical Ventilator 30 03/16/17 03:00 22 03/16/17 03:00 181/68 03/16/17 02:45 108 18 182/99 100 Mechanical Ventilator 30 03/16/17 02:30 83 18 113/45 100 Mechanical Ventilator 30 03/16/17 02:15 86 18 98/48 100 Mechanical Ventilator 30 03/16/17 02:00 82 18 98/82 100 Mechanical Ventilator 30 03/16/17 02:00 20 03/16/17 01:47 78 21 30 03/16/17 01:45 83 18 101/54 100 Mechanical Ventilator 30 03/16/17 01:30 85 18 97/48 100 Mechanical Ventilator 30 03/16/17 01:15 87 18 117/47 100 Mechanical Ventilator 30 03/16/17 01:00 24 03/16/17 01:00 91 18 98/54 100 Mechanical Ventilator 30 03/16/17 00:45 85 20 99/61 100 Mechanical Ventilator 30 03/16/17 00:30 80 20 96/54 100 Mechanical Ventilator 30 03/16/17 00:15 88 20 131/46 100 Mechanical Ventilator 30 03/16/17 00:00 30 03/16/17 00:00 80 03/16/17 00:00 20 03/16/17 00:00 97.8 94 22 84/49 100 Mechanical Ventilator 30 03/15/17 23:45 84 20 94/53 100 Mechanical Ventilator 30 03/15/17 23:30 81 20 97/70 100 Mechanical Ventilator 30 03/15/17 23:15 84 22 104/51 100 Mechanical Ventilator 30 03/15/17 23:00 98.5 89 25 98/46 100 Mechanical Ventilator 30 03/15/17 23:00 25 03/15/17 22:54 70 23 30 03/15/17 22:45 90 22 99/53 100 Mechanical Ventilator 30 03/15/17 22:30 98.8 89 22 104/41 100 Mechanical Ventilator 30 03/15/17 22:15 90 22 104/41 100 Mechanical Ventilator 30 03/15/17 22:00 23 03/15/17 22:00 22 03/15/17 22:00 89 23 99/50 100 Mechanical Ventilator 30 03/15/17 21:53 22 03/15/17 21:45 89 26 98/48 100 Mechanical Ventilator 30 03/15/17 21:35 99 25 30 03/15/17 21:30 99.8 83 24 95/39 100 Mechanical Ventilator 30 03/15/17 21:15 95 24 94/53 100 Mechanical Ventilator 30 03/15/17 21:00 26 03/15/17 21:00 80 24 96/51 100 Mechanical Ventilator 30 03/15/17 20:58 99.4 03/15/17 20:45 94 24 108/44 100 Mechanical Ventilator 30 03/15/17 20:30 80 24 108/44 100 Mechanical Ventilator 30 03/15/17 20:15 93 24 108/44 100 Mechanical Ventilator 30 03/15/17 20:00 100.1 97 24 117/44 100 Mechanical Ventilator 30 03/15/17 20:00 30 03/15/17 20:00 24 03/15/17 20:00 97 03/15/17 19:54 108 28 30 03/15/17 19:50 99/55 03/15/17 19:45 93 27 117/67 100 Mechanical Ventilator 30 03/15/17 19:30 97 23 99/55 100 Mechanical Ventilator 30 03/15/17 19:15 93 24 107/39 100 Mechanical Ventilator 30 03/15/17 19:00 24 03/15/17 19:00 99.1 93 24 108/44 100 Mechanical Ventilator 30 03/15/17 18:30 104 26 116/50 100 Mechanical Ventilator 30 03/15/17 18:00 122 30 114/49 100 Mechanical Ventilator 30 03/15/17 17:30 107 27 122/54 100 Mechanical Ventilator 30 03/15/17 17:00 108 29 95/38 100 Mechanical Ventilator 30 03/15/17 16:44 113 29 30 03/15/17 16:30 109 29 121/48 100 Mechanical Ventilator 30 03/15/17 16:00 99.3 105 26 106/49 100 Mechanical Ventilator 30 03/15/17 16:00 30 03/15/17 16:00 106 03/15/17 15:30 91 28 114/74 100 Mechanical Ventilator 30 03/15/17 15:00 101 28 92/49 100 Mechanical Ventilator 30 03/15/17 14:40 108 25 30 03/15/17 14:30 101 25 92/46 100 Mechanical Ventilator 30 03/15/17 14:00 82 22 90/43 100 Mechanical Ventilator 30 03/15/17 13:30 101 25 87/47 99 Mechanical Ventilator 30 03/15/17 13:00 123 27 102/47 98 Mechanical Ventilator 30 03/15/17 12:49 122 28 30 03/15/17 12:30 122 28 86/52 96 Mechanical Ventilator 30 03/15/17 12:15 101 28 87/45 96 Mechanical Ventilator 30 03/15/17 12:00 87 03/15/17 12:00 98 28 99/51 97 Mechanical Ventilator 30 03/15/17 12:00 30 03/15/17 11:45 99.0 100 25 99/48 99 Mechanical Ventilator 30 03/15/17 11:30 90 25 94/48 99 Mechanical Ventilator 30 03/15/17 11:15 99 28 99/51 100 Mechanical Ventilator 30 03/15/17 11:01 97 24 30 03/15/17 11:00 95 26 94/46 99 Mechanical Ventilator 30 03/15/17 11:00 26 03/15/17 11:00 94/46 03/15/17 10:45 98 27 107/44 100 Mechanical Ventilator 30 03/15/17 10:30 89/50 03/15/17 10:30 94 26 89/50 99 Mechanical Ventilator 30 03/15/17 10:00 98 26 86/38 99 Mechanical Ventilator 30 03/15/17 10:00 25 03/15/17 10:00 90/37 03/15/17 09:30 89 26 84/31 99 Mechanical Ventilator 30 03/15/17 09:00 23 03/15/17 09:00 93/50 03/15/17 09:00 94 25 94/45 99 Mechanical Ventilator 30 03/15/17 08:52 92 24 30 03/15/17 08:30 94 25 94/45 99 Mechanical Ventilator 30 Labs: Labs Test 03/13/17 18:10 03/13/17 18:40 03/13/17 19:07 03/13/17 21:00 White Blood Count 20.1 K/UL (4.8-10.8) Red Blood Count 3.37 M/UL (4.70-6.10) Hemoglobin 10.3 G/DL (14.2-18.0) Hematocrit 31.1 % (42.0-52.0) Mean Corpuscular Volume 92 FL (80-99) Mean Corpuscular Hemoglobin 30.7 PG (27.0-31.0) Mean Corpuscular Hemoglobin Concent 33.3 G/DL (32.0-36.0) Red Cell Distribution Width 14.5 % (11.6-14.8) Platelet Count 382 K/UL (150-450) Mean Platelet Volume 7.0 FL (6.5-10.1) Neutrophils (%) (Auto) % (45.0-75.0) Lymphocytes (%) (Auto) % (20.0-45.0) Monocytes (%) (Auto) % (1.0-10.0) Eosinophils (%) (Auto) % (0.0-3.0) Basophils (%) (Auto) % (0.0-2.0) Differential Total Cells Counted 100 Neutrophils % (Manual) 62 % (45-75) Lymphocytes % (Manual) 21 % (20-45) Monocytes % (Manual) 14 % (1-10) Eosinophils % (Manual) 0 % (0-3) Basophils % (Manual) 0 % (0-2) Band Neutrophils 3 % (0-8) Platelet Estimate Adequate Platelet Morphology Normal Red Blood Cell Morphology Normal Prothrombin Time 12.5 SEC (9.30-11.50) Prothromb Time International Ratio 1.2 (0.9-1.1) Activated Partial Thromboplast Time 26 SEC (23-33) Sodium Level 144 mEQ/L (135-145) Potassium Level 4.6 mEQ/L (3.4-4.9) Chloride Level 105 mEQ/L (98-107) Carbon Dioxide Level 23 mEQ/L (20-30) Anion Gap 16 (5-15) Blood Urea Nitrogen 54 mg/dL (7-23) Creatinine 1.3 mg/dL (0.7-1.2) Estimat Glomerular Filtration Rate mL/min (>60) Glucose Level 201 mg/dL (74-106) Lactic Acid Level 4.90 mmol/L (0.66-2.22) 4.50 mmol/L (0.66-2.22) Calcium Level 8.8 mg/dL (8.6-10.2) Total Bilirubin 0.3 mg/dL (0.0-1.2) Aspartate Amino Transf (AST/SGOT) 31 U/L (5-40) Alanine Aminotransferase (ALT/SGPT) 22 U/L (3-41) Alkaline Phosphatase 44 U/L (40-129) Total Creatine Kinase 1063 U/L (38-174) Troponin I < 0.30 ng/mL (<=0.30) Pro-B-Type Natriuretic Peptide 7625 pg/mL (0-450) Total Protein 7.4 g/dL (6.6-8.7) Albumin 2.8 g/dL (3.5-5.2) Globulin 4.6 g/dL Albumin/Globulin Ratio 0.6 (1.0-2.7) Urine Color Yellow Urine Appearance Cloudy Urine pH 6 (4.5-8.0) Urine Specific [employer] [place] 1.010 (1.005-1.035) Urine Protein 3+ (NEGATIVE) Urine Glucose (UA) Negative (NEGATIVE) Urine Ketones Negative (NEGATIVE) Urine Occult Blood 3+ (NEGATIVE) Urine Nitrite Negative (NEGATIVE) Urine Bilirubin Negative (NEGATIVE) Urine Urobilinogen Normal MG/DL (0.0-1.0) Urine Leukocyte Esterase 3+ (NEGATIVE) Urine RBC 0-2 /HPF (0 - 0) Urine WBC Tntc /HPF (0 - 0) Urine Squamous Epithelial Cells None /LPF (NONE/OCC) Urine Bacteria Moderate /HPF (NONE) Urine Yeast Moderate /HPF (NONE) Arterial Blood pH 7.316 (7.350-7.450) Arterial Blood Partial Pressure CO2 44.3 mmHg (35.0-45.0) Arterial Blood Partial Pressure O2 105.1 mmHg (75.0-100.0) Arterial Blood HCO3 22.1 mmol/L (22.0-26.0) Arterial Blood Oxygen Saturation 96.3 % (92.0-98.0) Arterial Blood Base Excess -3.9 Yosvany Test Positive Test 03/14/17 05:15 03/14/17 08:16 03/14/17 08:45 03/14/17 15:25 White Blood Count 8.3 K/UL (4.8-10.8) Red Blood Count 2.84 M/UL (4.70-6.10) Hemoglobin 8.6 G/DL (14.2-18.0) Hematocrit 26.3 % (42.0-52.0) Mean Corpuscular Volume 93 FL (80-99) Mean Corpuscular Hemoglobin 30.2 PG (27.0-31.0) Mean Corpuscular Hemoglobin Concent 32.6 G/DL (32.0-36.0) Red Cell Distribution Width 14.2 % (11.6-14.8) Platelet Count 292 K/UL (150-450) Mean Platelet Volume 7.1 FL (6.5-10.1) Neutrophils (%) (Auto) 74.6 % (45.0-75.0) Lymphocytes (%) (Auto) 18.7 % (20.0-45.0) Monocytes (%) (Auto) 4.9 % (1.0-10.0) Eosinophils (%) (Auto) 0.2 % (0.0-3.0) Basophils (%) (Auto) 1.5 % (0.0-2.0) Sodium Level 141 mEQ/L (135-145) Potassium Level 4.3 mEQ/L (3.4-4.9) Chloride Level 103 mEQ/L (98-107) Carbon Dioxide Level 18 mEQ/L (20-30) Anion Gap 20 (5-15) Blood Urea Nitrogen 60 mg/dL (7-23) Creatinine 1.4 mg/dL (0.7-1.2) Estimat Glomerular Filtration Rate mL/min (>60) Glucose Level 186 mg/dL (74-106) Lactic Acid Level 3.80 mmol/L (0.66-2.22) 3.30 mmol/L (0.66-2.22) 2.30 mmol/L (0.66-2.22) Calcium Level 7.7 mg/dL (8.6-10.2) Arterial Blood pH 7.360 (7.350-7.450) Arterial Blood Partial Pressure CO2 36.9 mmHg (35.0-45.0) Arterial Blood Partial Pressure O2 100.7 mmHg (75.0-100.0) Arterial Blood HCO3 20.5 mmol/L (22.0-26.0) Arterial Blood Oxygen Saturation 96.7 % (92.0-98.0) Arterial Blood Base Excess -4.5 Yosvany Test Positive Test 03/15/17 03:58 03/15/17 08:30 03/15/17 09:32 03/15/17 16:25 White Blood Count 9.8 K/UL (4.8-10.8) Red Blood Count 2.65 M/UL (4.70-6.10) Hemoglobin 7.8 G/DL (14.2-18.0) Hematocrit 24.8 % (42.0-52.0) Mean Corpuscular Volume 93 FL (80-99) Mean Corpuscular Hemoglobin 29.6 PG (27.0-31.0) Mean Corpuscular Hemoglobin Concent 31.7 G/DL (32.0-36.0) Red Cell Distribution Width 14.4 % (11.6-14.8) Platelet Count 251 K/UL (150-450) Mean Platelet Volume 7.0 FL (6.5-10.1) Neutrophils (%) (Auto) % (45.0-75.0) Lymphocytes (%) (Auto) % (20.0-45.0) Monocytes (%) (Auto) % (1.0-10.0) Eosinophils (%) (Auto) % (0.0-3.0) Basophils (%) (Auto) % (0.0-2.0) Differential Total Cells Counted 100 Neutrophils % (Manual) 73 % (45-75) Lymphocytes % (Manual) 14 % (20-45) Monocytes % (Manual) 2 % (1-10) Eosinophils % (Manual) 1 % (0-3) Basophils % (Manual) 0 % (0-2) Band Neutrophils 10 % (0-8) Platelet Estimate Adequate Platelet Morphology Normal Hypochromasia 1+ Anisocytosis 1+ Sodium Level 141 mEQ/L (135-145) Potassium Level 4.3 mEQ/L (3.4-4.9) Chloride Level 104 mEQ/L (98-107) Carbon Dioxide Level 18 mEQ/L (20-30) Anion Gap 19 (5-15) Blood Urea Nitrogen 52 mg/dL (7-23) Creatinine 1.3 mg/dL (0.7-1.2) Estimat Glomerular Filtration Rate mL/min (>60) Glucose Level 123 mg/dL (74-106) Lactic Acid Level 3.20 mmol/L (0.66-2.22) 2.50 mmol/L (0.66-2.22) 2.10 mmol/L (0.66-2.22) Calcium Level 7.4 mg/dL (8.6-10.2) Total Bilirubin 0.4 mg/dL (0.0-1.2) Aspartate Amino Transf (AST/SGOT) 31 U/L (5-40) Alanine Aminotransferase (ALT/SGPT) 16 U/L (3-41) Alkaline Phosphatase 85 U/L (40-129) Total Protein 5.7 g/dL (6.6-8.7) Albumin 1.7 g/dL (3.5-5.2) Globulin 4.0 g/dL Albumin/Globulin Ratio 0.4 (1.0-2.7) Arterial Blood pH 7.480 (7.350-7.450) Arterial Blood Partial Pressure CO2 29.9 mmHg (35.0-45.0) Arterial Blood Partial Pressure O2 91.9 mmHg (75.0-100.0) Arterial Blood HCO3 18.9 mmol/L (22.0-26.0) Arterial Blood Oxygen Saturation 95.4 % (92.0-98.0) Arterial Blood Base Excess -5.0 Yosvany Test Positive Test 03/16/17 03:55 White Blood Count 8.7 K/UL (4.8-10.8) Red Blood Count 3.12 M/UL (4.70-6.10) Hemoglobin 9.1 G/DL (14.2-18.0) Hematocrit 28.1 % (42.0-52.0) Mean Corpuscular Volume 90 FL (80-99) Mean Corpuscular Hemoglobin 29.3 PG (27.0-31.0) Mean Corpuscular Hemoglobin Concent 32.4 G/DL (32.0-36.0) Red Cell Distribution Width 13.8 % (11.6-14.8) Platelet Count 232 K/UL (150-450) Mean Platelet Volume 6.7 FL (6.5-10.1) Neutrophils (%) (Auto) % (45.0-75.0) Lymphocytes (%) (Auto) % (20.0-45.0) Monocytes (%) (Auto) % (1.0-10.0) Eosinophils (%) (Auto) % (0.0-3.0) Basophils (%) (Auto) % (0.0-2.0) Sodium Level 142 mEQ/L (135-145) Potassium Level 4.2 mEQ/L (3.4-4.9) Chloride Level 107 mEQ/L (98-107) Carbon Dioxide Level 18 mEQ/L (20-30) Anion Gap 17 (5-15) Blood Urea Nitrogen 56 mg/dL (7-23) Creatinine 1.0 mg/dL (0.7-1.2) Estimat Glomerular Filtration Rate mL/min (>60) Glucose Level 152 mg/dL (74-106) Lactic Acid Level 1.10 mmol/L (0.66-2.22) Calcium Level 7.6 mg/dL (8.6-10.2) Total Bilirubin 0.6 mg/dL (0.0-1.2) Aspartate Amino Transf (AST/SGOT) 75 U/L (5-40) Alanine Aminotransferase (ALT/SGPT) 55 U/L (3-41) Alkaline Phosphatase 117 U/L (40-129) Total Protein 5.8 g/dL (6.6-8.7) Albumin 1.5 g/dL (3.5-5.2) Globulin 4.3 g/dL Albumin/Globulin Ratio 0.3 (1.0-2.7) Objective: GENERAL: The patient is sedated on the ventilator NAD HEENT: Oropharynx is moist. Gag present. NECK: Supple. Carotids 2+. LUNGS: Coarse breath sounds and minimal rhonchi. No wheezes. CARDIAC: S1 and S2. Regular rate and rhythm. Soft at the parasternal border. No rubs or gallops. ABDOMEN: Soft and nontender. No distention. no HSM; GT EXTREMITIES: No cyanosis. No clubbing. No edema. left heel wound NEUROLOGIC: Grossly nonfocal.sedated reviewed and edited Micro: Microbiology Date/Time Source Procedure Growth Status 03/13/17 18:00 Blood Blood Culture - Preliminary NO GROWTH AFTER 48 HOURS Resulted 03/13/17 17:45 Blood Blood Culture - Preliminary NO GROWTH AFTER 48 HOURS Resulted 03/13/17 18:40 Urine,Clean Catch Urine Culture - Preliminary Resulted 03/13/17 22:00 Foot Left Gram Stain - Final Resulted 03/13/17 22:00 Wound Culture - Preliminary Gram Negative Jordi Resulted Accucheck: 163 REJI OJEDA Mar 16, 2017 08:19
[2017-03-16] MEDS: Heparin 2000 units/Ns 1000ml INJ SCH (08:45)
[2017-03-16] MEDS: Lidocaine 1% Plain 30 ml INJ SCH (08:45)
--- NOTE | 2017-03-16 08:47 | General Progress Note ---
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 (4) Respiratory failure ICD Codes: J96.90 - Respiratory failure, unspecified, unspecified whether with hypoxia or hypercapnia SNOMED: 148916265 Qualifiers: Qualified Codes: J96.01 - Acute respiratory failure with hypoxia (5) Renal insufficiency ICD Codes: N28.9 - Disorder of kidney and ureter, unspecified SNOMED: 366328751, 200226837 (6) UTI (urinary tract infection) ICD Codes: N39.0 - Urinary tract infection, site not specified SNOMED: 27208166 Qualifiers: Qualified Codes: T83.511A - Infection and inflammatory reaction due to indwelling urethral catheter, initial encounter; N39.0 - Urinary tract infection , site not specified (7) Pneumonia ICD Codes: J18.9 - Pneumonia, unspecified organism SNOMED: 975223255 Qualifiers: Qualified Codes: J18.9 - Pneumonia, unspecified organism (8) Severe sepsis ICD Codes: A41.9 - Sepsis, unspecified organism; R65.20 - Severe sepsis without septic shock SNOMED: 65465731 Status: not improved Assessment/Plan cont ivf iv abx follow up cultures wean pressors wean sedation monitor labs critical and guarded Subjective ROS Limited/Unobtainable: Yes Constitutional: Reports: malaise, weakness HEENT: Reports: no symptoms Cardiovascular: Reports: no symptoms Respiratory: Reports: SOB at rest, cough Gastrointestinal/Abdominal: Reports: difficulty swallowing Genitourinary: Reports: no symptoms Neurologic/Psychiatric: Reports: pre-existing deficit Endocrine: Reports: no symptoms Hematologic/Lymphatic: Reports: no symptoms Allergies: Coded Allergies: No Known Allergies (Unverified , 01/07/17) All Systems: reviewed and negative except above Subjective no overnight events. remains on the vent. unable to wean pressors so far. on sedation- versed. Objective Last 24 Hour Vital Signs Date Time Temp Pulse Resp B/P Pulse Ox O2 Delivery O2 Flow Rate FiO2 03/16/17 08:21 113/58 03/16/17 08:00 97.9 87 21 111/47 100 Mechanical Ventilator 50 03/16/17 08:00 50 03/16/17 07:00 24 7/10/17 07:00 97/42 03/16/17 07:00 80 18 96/45 100 Mechanical Ventilator 50 03/16/17 06:45 80 18 97/42 100 Mechanical Ventilator 50 03/16/17 06:40 77 19 50 03/16/17 06:30 81 18 91/44 100 Mechanical Ventilator 50 03/16/17 06:15 83 18 84/38 100 Mechanical Ventilator 50 03/16/17 06:00 22 03/16/17 06:00 84/38 03/16/17 06:00 83 18 84/38 100 Mechanical Ventilator 50 03/16/17 05:45 80 18 74/37 100 Mechanical Ventilator 50 03/16/17 05:30 94 18 109/46 100 Mechanical Ventilator 50 03/16/17 05:20 83 21 50 03/16/17 05:15 92 18 108/50 100 Mechanical Ventilator 30 03/16/17 05:00 50 03/16/17 05:00 21 03/16/17 05:00 109/50 03/16/17 05:00 91 18 109/50 100 Mechanical Ventilator 30 03/16/17 04:45 83 18 113/45 100 Mechanical Ventilator 30 03/16/17 04:30 95 22 109/51 100 Mechanical Ventilator 30 03/16/17 04:15 91 18 98/51 100 Mechanical Ventilator 30 03/16/17 04:00 94 03/16/17 04:00 22 03/16/17 04:00 79/59 03/16/17 04:00 97.7 93 20 105/45 100 Mechanical Ventilator 30 03/16/17 04:00 100 03/16/17 03:45 96 18 79/59 100 Mechanical Ventilator 30 03/16/17 03:33 100 03/16/17 03:33 104 26 100 03/16/17 03:30 101 24 146/111 100 Mechanical Ventilator 30 03/16/17 03:15 105 18 166/98 100 Mechanical Ventilator 30 03/16/17 03:00 101 18 146/111 100 Mechanical Ventilator 30 03/16/17 03:00 22 03/16/17 03:00 181/68 03/16/17 02:45 108 18 182/99 100 Mechanical Ventilator 30 03/16/17 02:30 83 18 113/45 100 Mechanical Ventilator 30 03/16/17 02:15 86 18 98/48 100 Mechanical Ventilator 30 03/16/17 02:00 82 18 98/82 100 Mechanical Ventilator 30 03/16/17 02:00 20 03/16/17 01:47 78 21 30 03/16/17 01:45 83 18 101/54 100 Mechanical Ventilator 30 03/16/17 01:30 85 18 97/48 100 Mechanical Ventilator 30 03/16/17 01:15 87 18 117/47 100 Mechanical Ventilator 30 03/16/17 01:00 24 03/16/17 01:00 91 18 98/54 100 Mechanical Ventilator 30 03/16/17 00:45 85 20 99/61 100 Mechanical Ventilator 30 03/16/17 00:30 80 20 96/54 100 Mechanical Ventilator 30 03/16/17 00:15 88 20 131/46 100 Mechanical Ventilator 30 03/16/17 00:00 30 03/16/17 00:00 80 03/16/17 00:00 20 03/16/17 00:00 97.8 94 22 84/49 100 Mechanical Ventilator 30 03/15/17 23:45 84 20 94/53 100 Mechanical Ventilator 30 03/15/17 23:30 81 20 97/70 100 Mechanical Ventilator 30 03/15/17 23:15 84 22 104/51 100 Mechanical Ventilator 30 03/15/17 23:00 98.5 89 25 98/46 100 Mechanical Ventilator 30 03/15/17 23:00 25 03/15/17 22:54 70 23 30 03/15/17 22:45 90 22 99/53 100 Mechanical Ventilator 30 03/15/17 22:30 98.8 89 22 104/41 100 Mechanical Ventilator 30 03/15/17 22:15 90 22 104/41 100 Mechanical Ventilator 30 03/15/17 22:00 23 03/15/17 22:00 22 03/15/17 22:00 89 23 99/50 100 Mechanical Ventilator 30 03/15/17 21:53 22 03/15/17 21:45 89 26 98/48 100 Mechanical Ventilator 30 03/15/17 21:35 99 25 30 03/15/17 21:30 99.8 83 24 95/39 100 Mechanical Ventilator 30 03/15/17 21:15 95 24 94/53 100 Mechanical Ventilator 30 03/15/17 21:00 26 03/15/17 21:00 80 24 96/51 100 Mechanical Ventilator 30 03/15/17 20:58 99.4 03/15/17 20:45 94 24 108/44 100 Mechanical Ventilator 30 03/15/17 20:30 80 24 108/44 100 Mechanical Ventilator 30 03/15/17 20:15 93 24 108/44 100 Mechanical Ventilator 30 03/15/17 20:00 100.1 97 24 117/44 100 Mechanical Ventilator 30 03/15/17 20:00 30 03/15/17 20:00 24 03/15/17 20:00 97 03/15/17 19:54 108 28 30 03/15/17 19:50 99/55 03/15/17 19:45 93 27 117/67 100 Mechanical Ventilator 30 03/15/17 19:30 97 23 99/55 100 Mechanical Ventilator 30 03/15/17 19:15 93 24 107/39 100 Mechanical Ventilator 30 03/15/17 19:00 24 03/15/17 19:00 99.1 93 24 108/44 100 Mechanical Ventilator 30 03/15/17 18:30 104 26 116/50 100 Mechanical Ventilator 30 03/15/17 18:00 122 30 114/49 100 Mechanical Ventilator 30 03/15/17 17:30 107 27 122/54 100 Mechanical Ventilator 30 03/15/17 17:00 108 29 95/38 100 Mechanical Ventilator 30 03/15/17 16:44 113 29 30 03/15/17 16:30 109 29 121/48 100 Mechanical Ventilator 30 03/15/17 16:00 99.3 105 26 106/49 100 Mechanical Ventilator 30 03/15/17 16:00 30 03/15/17 16:00 106 03/15/17 15:30 91 28 114/74 100 Mechanical Ventilator 30 03/15/17 15:00 101 28 92/49 100 Mechanical Ventilator 30 03/15/17 14:40 108 25 30 03/15/17 14:30 101 25 92/46 100 Mechanical Ventilator 30 03/15/17 14:00 82 22 90/43 100 Mechanical Ventilator 30 03/15/17 13:30 101 25 87/47 99 Mechanical Ventilator 30 03/15/17 13:00 123 27 102/47 98 Mechanical Ventilator 30 03/15/17 12:49 122 28 30 03/15/17 12:30 122 28 86/52 96 Mechanical Ventilator 30 03/15/17 12:15 101 28 87/45 96 Mechanical Ventilator 30 03/15/17 12:00 87 03/15/17 12:00 98 28 99/51 97 Mechanical Ventilator 30 03/15/17 12:00 30 03/15/17 11:45 99.0 100 25 99/48 99 Mechanical Ventilator 30 03/15/17 11:30 90 25 94/48 99 Mechanical Ventilator 30 03/15/17 11:15 99 28 99/51 100 Mechanical Ventilator 30 03/15/17 11:01 97 24 30 03/15/17 11:00 95 26 94/46 99 Mechanical Ventilator 30 03/15/17 11:00 26 03/15/17 11:00 94/46 03/15/17 10:45 98 27 107/44 100 Mechanical Ventilator 30 03/15/17 10:30 89/50 03/15/17 10:30 94 26 89/50 99 Mechanical Ventilator 30 03/15/17 10:00 98 26 86/38 99 Mechanical Ventilator 30 03/15/17 10:00 25 03/15/17 10:00 90/37 03/15/17 09:30 89 26 84/31 99 Mechanical Ventilator 30 03/15/17 09:00 23 03/15/17 09:00 93/50 03/15/17 09:00 94 25 94/45 99 Mechanical Ventilator 30 03/15/17 08:52 92 24 30 Intake and Output 03/15/17 03/16/17 19:00 07:00 Intake Total 2435.25 ml 2756.25 ml Output Total 635 ml 1030 ml Balance 1800.25 ml 1726.25 ml Intake Free Water 100 ml 150 ml IV Total 1645.25 ml 1951.25 ml Tube Feeding 300 ml 375 ml Blood Product 250 ml 250 ml Other 140 ml 30 ml Output Urine Total 635 ml 1030 ml Laboratory Tests 03/15/17 09:32: Arterial Blood pH 7.480H, Arterial Blood Partial Pressure CO2 29.9L, Arterial Blood Partial Pressure O2 91.9, Arterial Blood HCO3 18.9L, Arterial Blood Oxygen Saturation 95.4, Arterial Blood Base Excess -5.0, Yosvany Test Positive 03/15/17 16:25: Lactic Acid Level 2.10 03/16/17 03:55: Lactic Acid Level 1.10, White Blood Count 8.7, Red Blood Count 3.12L, Hemoglobin 9.1L, Hematocrit 28.1L, Mean Corpuscular Volume 90, Mean Corpuscular Hemoglobin 29.3, Mean Corpuscular Hemoglobin Concent 32.4, Red Cell Distribution Width 13.8, Platelet Count 232, Mean Platelet Volume 6.7, Neutrophils (%) (Auto) , Lymphocytes (%) (Auto) , Monocytes (%) (Auto) , Eosinophils (%) (Auto) , Basophils (%) (Auto) , Sodium Level 142, Potassium Level 4.2, Chloride Level 107, Carbon Dioxide Level 18L, Anion Gap 17H, Blood Urea Nitrogen 56H, Creatinine 1.0, Estimat Glomerular Filtration Rate , Glucose Level 152H, Calcium Level 7.6L, Total Bilirubin 0.6, Aspartate Amino Transf (AST /SGOT) 75H, Alanine Aminotransferase (ALT/SGPT) 55H, Alkaline Phosphatase 117, Total Protein 5.8L, Albumin 1.5L, Globulin 4.3, Albumin/Globulin Ratio 0.3L Height (Feet): 6 Weight (Pounds): 173 General Appearance: WD/WN, lethargic, confused Neck: supple Cardiovascular: regular rhythm Respiratory/Chest: lungs clear Abdomen: normal bowel sounds, non tender, soft, no organomegaly Edema: no edema noted Arm (L), no edema noted Arm (R), no edema noted Leg (L), no edema noted Leg (R), no edema noted Pedal (L), no edema noted Pedal (R), no edema noted Generalized Neurologic: disoriented, unresponsive Skin: normal pigmentation WENDIE CASTELLANOS Mar 16, 2017 08:47
[2017-03-16] MEDS ORDERED: LORazepam Inj 2mg/ml 1ml IV PRN (09:00)
[2017-03-16] MEDS: Ascorbic Acid 500mg tab ORAL SCH (09:27)
[2017-03-16] MEDS: Ferrous Sulfate 300 MG/5 ML UDC GT SCH (09:28)
[2017-03-16] MEDS: sitaGLIPtin 25mg tab GT SCH (09:28)
[2017-03-16] MEDS: Heparin 5000 units/ml inj SUBQ SCH ×2 (09:30→21:07)
[2017-03-16] MEDS: Tamsulosin 0.4mg cap GT SCH (09:31)
[2017-03-16 11:46] LABS: OTHERS PATHOLOGIST COPMMENT
[2017-03-16] MEDS ORDERED: NS 550ML IV ONE ×2 (12:00→15:36)
[2017-03-16] MEDS ORDERED: NS 275ml ONE ×3 (12:00→15:39)
[2017-03-16] MEDS ORDERED: Tubing IV Secondary IV ONE ×2 (12:00→15:36)
--- NOTE | 2017-03-16 15:23 | Wound Care Consultation ---
Wound Assessment Wound Assessment #1: Wound Number: #1 Wound Present on Admission: Yes New Wound: No Status Change of Wound: No Wound Location Body Site Modif: right Wound Location Body Site: heel Wound Type: pressure ulcer Anette Test: Does not Anette Pressure Ulcer Stage: deep tissue injury - blood filled blister Wound Thickness: Full Thickness Wound Length: 11.0 Wound Width: 12.0 Wound Depth: utd Percent of Wound Purple/Maroon: 100 Wound Drainage Amount: None Wound Drainage Odor: None/Absent Tissue Surrounding Wound: Erythemic Wound General Appearance: Reddened Wound Assessment #2: Wound Number: #2 Wound Present on Admission: Yes New Wound: No Status Change of Wound: No Wound Location Body Site Modif: right Wound Location Body Site: metatarsal head - 5th Wound Type: pressure ulcer Anette Test: Does not Anette Pressure Ulcer Stage: deep tissue injury Wound Thickness: Full Thickness Wound Length: 1.0 Wound Width: 1.0 Wound Depth: utd Percent of Wound Purple/Maroon: 100 Wound Drainage Amount: None Wound Drainage Odor: None/Absent Tissue Surrounding Wound: Erythemic Wound General Appearance: Reddened Wound Assessment #3: Wound Number: #3 Wound Present on Admission: Yes New Wound: No Status Change of Wound: No Wound Location Body Site Modif: right, mid, lateral Wound Location Body Site: foot Wound Type: pressure ulcer Anette Test: Does not Anette Pressure Ulcer Stage: deep tissue injury Wound Thickness: Full Thickness Wound Length: 3.0 Wound Width: 3.0 Wound Depth: utd Percent of Wound Purple/Maroon: 100 Wound Drainage Amount: None Wound Drainage Odor: None/Absent Tissue Surrounding Wound: Erythemic Wound General Appearance: Reddened Wound Assessment #4: Wound Number: #4 Wound Present on Admission: Yes New Wound: No Status Change of Wound: No Wound Location Body Site Modif: right, lateral Wound Location Body Site: malleolus/ankle Wound Type: pressure ulcer Anette Test: Does not Anette Pressure Ulcer Stage: deep tissue injury Wound Thickness: Full Thickness Wound Length: 3.0 Wound Width: 4.0 Wound Depth: utd Wound Drainage Amount: None Wound Drainage Odor: None/Absent Tissue Surrounding Wound: Erythemic Wound General Appearance: Reddened Wound Assessment #5: Wound Number: #5 Wound Present on Admission: Yes New Wound: No Status Change of Wound: No Wound Location Body Site Modif: right Wound Location Body Site: foot - dorsal aspect of foot Wound Type: pressure ulcer Anette Test: Does not Anette Pressure Ulcer Stage: I Wound Thickness: Full Thickness Wound Length: 5.0 - scattered Wound Width: 7.0 - scattered Wound Depth: utd Wound Drainage Amount: None Wound Drainage Odor: None/Absent Tissue Surrounding Wound: Erythemic Wound General Appearance: Reddened Wound Assessment #6: Wound Number: #6 Wound Present on Admission: Yes New Wound: No Status Change of Wound: No Wound Location Body Site Modif: left Wound Location Body Site: heel Wound Type: pressure ulcer Anette Test: Does not Anette Pressure Ulcer Stage: IV/unstageable Wound Thickness: Full Thickness Wound Length: 12.0 Wound Width: 13.0 Wound Depth: utd Percent of Wound [place]/Red: 10 Percent of Wound Black/Brown: 70 - scattered multipe openings with black eschar. Percent of Wound Purple/Maroon: 20 - surrounding skin maoon. Wound Drainage Description: Serosanguineous Wound Drainage Amount: Moderate - noted drainage to open pink wound beds. Wound Drainage Odor: None/Absent Tissue Surrounding Wound: Erythemic Wound General Appearance: Reddened, Blackened, Draining, Necrotic Wound Assessment #7: Wound Number: #7 Wound Present on Admission: Yes New Wound: No Status Change of Wound: No Wound Location Body Site Modif: left, mid, lateral Wound Location Body Site: foot Wound Type: pressure ulcer Anette Test: Does not Anette Pressure Ulcer Stage: deep tissue injury Wound Thickness: Full Thickness Wound Length: 2.0 Wound Width: 3.0 Wound Depth: utd Percent of Wound Purple/Maroon: 100 Wound Drainage Amount: None Wound Drainage Odor: None/Absent Tissue Surrounding Wound: Erythemic Wound General Appearance: Reddened Wound Assessment #8: Wound Number: #8 Wound Present on Admission: Yes New Wound: No Status Change of Wound: No Wound Location Body Site Modif: left Wound Location Body Site: metatarsal head - 5th Wound Type: pressure ulcer Anette Test: Does not Anette Pressure Ulcer Stage: deep tissue injury - suspected Wound Thickness: Full Thickness Wound Length: 2.0 Wound Width: 3.0 Wound Depth: utd Percent of Wound [place]/Red: 50 - dark red Percent of Wound Purple/Maroon: 50 Wound Drainage Amount: None Wound Drainage Odor: None/Absent Tissue Surrounding Wound: Erythemic Wound General Appearance: Reddened Wound Assessment #9: Wound Number: #9 Wound Present on Admission: Yes New Wound: No Status Change of Wound: No Wound Location Body Site Modif: left Wound Location Body Site: metatarsal head - 1st Wound Type: pressure ulcer Anette Test: Does not Anette Pressure Ulcer Stage: IV/unstageable Wound Thickness: Full Thickness Wound Length: 2.0 Wound Width: 2.0 Wound Depth: utd Percent of Wound [place]/Red: 20 Percent of Wound Bed Yellow/Wh: 20 Percent of Wound Black/Brown: 60 Wound Drainage Description: Serosanguineous Wound Drainage Amount: Scant Wound Drainage Odor: None/Absent Tissue Surrounding Wound: Erythemic Wound General Appearance: Reddened, Blackened Wound Assessment #10: Wound Number: #10 Wound Present on Admission: Yes New Wound: No Status Change of Wound: No Wound Location Body Site Modif: left, lower, lateral Wound Location Body Site: leg Wound Type: pressure ulcer Anette Test: Does not Anette Pressure Ulcer Stage: IV/unstageable - unstageable Wound Thickness: Full Thickness Wound Length: 1.5 Wound Width: 0.5 Wound Depth: utd Percent of Wound [place]/Red: 80 Percent of Wound Bed Yellow/Wh: 20 Wound Drainage Description: Serosanguineous Wound Drainage Amount: Scant Wound Drainage Odor: None/Absent Tissue Surrounding Wound: Erythemic Wound General Appearance: Reddened Wound Assessment #11: Wound Number: #11 Wound Present on Admission: Yes New Wound: No Status Change of Wound: No Wound Location Body Site Modif: left Wound Location Body Site: foot - dorsal aspect of foot scab Wound Type: scab Anette Test: Does not Anette Wound Thickness: Partial Thickness Wound Length: 0.5 Wound Width: 0.5 Wound Depth: utd Percent of Wound Black/Brown: 100 - dry scab Wound Drainage Amount: None Wound Drainage Odor: None/Absent Tissue Surrounding Wound: Erythemic Wound General Appearance: Reddened Wound Assessment #12: Wound Number: #12 Wound Present on Admission: Yes New Wound: No Status Change of Wound: No Wound Location Body Site Modif: left Wound Location Body Site: foot - dorsal aspect of foot. Wound Type: pressure ulcer Anette Test: Does not Anette Pressure Ulcer Stage: deep tissue injury Wound Thickness: Full Thickness Wound Length: 1.5 Wound Width: 2.0 Wound Depth: utd Percent of Wound Purple/Maroon: 100 Other Colors Identified: surrounding tissue noted reddness. Wound Drainage Amount: None Wound Drainage Odor: None/Absent Tissue Surrounding Wound: Erythemic Wound General Appearance: Reddened Wound Assessment #13: Wound Number: #13 Wound Present on Admission: Yes New Wound: No Status Change of Wound: No Wound Location Body Site: perineal area - perianal Wound Type: chemical burn Anette Test: Does not Anette Wound Thickness: Partial Thickness Percent of Wound [place]/Red: 100 - scattered Wound Drainage Amount: None Wound Drainage Odor: None/Absent Tissue Surrounding Wound: Macerated Wound General Appearance: Reddened Wound Assessment #14: Wound Number: #14 Wound Present on Admission: Yes New Wound: No Status Change of Wound: No Wound Location Body Site Modif: right Wound Location Body Site: sacral Wound Type: pressure ulcer Anette Test: Does not Anette Pressure Ulcer Stage: III Wound Thickness: Full Thickness Wound Length: 3.0 Wound Width: 2.0 Wound Depth: 0.2 Percent of Wound [place]/Red: 90 Percent of Wound Bed Yellow/Wh: 10 Wound Drainage Description: Serosanguineous Wound Drainage Amount: Scant Wound Drainage Odor: None/Absent Tissue Surrounding Wound: Macerated Wound General Appearance: Reddened Wound Comment #1 Right heel pressure ulcer Deep tissue injury. #2 Right 5th metatarsal head pressure ulcer Deep tissue injury. #3 Right mid lateral foot pressure ulcer Deep tissue injury. #4 Right lateral malleolus pressure ulcer Deep Tissue Injury #5 Right dorsal aspect of foot pressure ulcer stage I. #6 Left heel pressure ulcer scattered unstageable wounds. #7 Left mid lateral foot pressure ulcer Deep tissue injury. #8 Left 5th metatarsal head pressure ulcer suspected deep tissue injury. #9 Left 1st metatarsal head pressure ulcer Unstageable. #10 Left lateral lower leg pressure ulcer Unstageable. #11 Left dorsal aspect of foot scab. #12 Left dorsal aspect of foot pressure ulcer deep tissue injury. #13 perineal/ perianal chemical burn. #14 Right aspect of sacral pressure ulcer stage III. RECOMMENDATION. -Local wound care as ordered. -Apply low air loss mattress. -Turn and reposition. -Keep clean and dry. -Optimize nutrition. -Offload affected pressure ulcer sites. -Apply heel protectors. -Avoid sheer and friction. -Assess and notify MD for any changes on condition noted to skin. CECE CARD Mar 16, 2017 15:23
[2017-03-16] MEDS ORDERED: Tubing Blood Filter IV ONE (15:39)
--- NOTE | 2017-03-16 16:50 | Diagnostic Imaging Report ---
Indications: Needs long-term IV access Technique: Procedure performed at bedside. Procedural timeout performed. Ultrasound confirms patent compressible right basilic vein. Total sterile technique, including sterile probe cover and sterile gel, sterile gloves, hand hygiene, hat, mask,, sterile gown, large sterile drape, and preparation with 2% chlorhexidine utilized. Local anesthesia with 1% lidocaine. Under real-time ultrasound guidance, puncture basilic vein using 21-gauge needle, passage 0.018 guidewire, exchange for 5 [place] peel-away sheath. 5 [place] Bard dual-lumen power PICC cut to 43 cm. It was inserted through the peel-away sheath. Peel-away sheath and guidewire removed. Catheter fixed to the skin. Both catheter ports aspirated and flushed. Patient tolerated procedure well, without immediate complication. Followup chest x-ray obtained, documents catheter tip position at the cavoatrial junction Impression: Successful bedside placement of right arm PICC under sonographic guidance, as described above.
[2017-03-16] MEDS: Meropenem 1 GM in NS 110 ML IVPB SCH (18:52)
[2017-03-16] MEDS: Vancomycin 1gm/D5W 275ml IVPB SCH ×2 (21:06)
[2017-03-16] MEDS: Dyna-Hex 2% Top Sol 8oz TOPIC SCH (21:06)
--- NOTE | 2017-03-16 22:46 | Consultation ---
DATE OF CONSULTATION: 03/15/2017 INFECTIOUS DISEASE CONSULT This consult is for coverage of Dr. Clemente. REASON FOR CONSULT: Pneumonia. HISTORY OF PRESENT ILLNESS: The patient is an 82-year-old male admitted on 03/13/2017 from a longterm facility with fever and respiratory distress. He had hypoxemia and O2 saturation of 87% at the time of admission. He had a temperature of 102.7 in the hospital and leukocytosis of 20,000. First, the patient was put on BiPAP, but later intubated. Currently, he is in the ICU. PAST MEDICAL HISTORY: Significant for dementia, status post G-tube placement, COPD, status post pacemaker, diabetes mellitus, and anemia. MEDICATIONS: Vitamin C, lorazepam, Zosyn, chlorhexidine, Levaquin, heparin, atorvastatin, vancomycin, ferrous sulfate, finasteride, Protonix, Januvia, Flomax, heparin, insulin, sodium chloride, Ambien, and Mylanta. ALLERGIES: No known drug allergies. SOCIAL HISTORY: A retirement resident. No history of alcohol, drug abuse, or smoking. REVIEW OF SYSTEMS: Unobtainable. PHYSICAL EXAMINATION: VITAL SIGNS: Blood pressure 105/49, pulse 77, and temperature is 98.9 degrees. HEAD AND NECK: Orally intubated. HEART: Normal rate. He has pacemaker. LUNGS: On ventilator, clear. ABDOMEN: Soft. G-tube feeding. EXTREMITIES: No edema. LABORATORY DATA: WBC today is 8.7, hemoglobin 9.1, hematocrit 28.1, and platelets is 232,000. Sodium 142, potassium 4.2, chloride 107, BUN 56, creatinine 1, and glucose 152. Albumin is 1.5. Chest x-ray showed congestive heart failure versus bilateral pneumonia. The patient's blood cultures are negative. Urine culture is pending. Wound culture from the left foot grew Klebsiella. The patient has pyuria. UA, WBC too numerous to count in urine. IMPRESSION: 1. Sepsis. 2. Septic shock. 3. The patient seems to have pneumonia. 4. May have urinary tract infection. 5. He has diabetes mellitus. 6. Anemia. 7. Respiratory failure. 8. Chronic kidney disease. RECOMMENDATIONS: 1. Change Zosyn to meropenem. 2. We will follow up the cultures and narrow antibiotics. At the end of my exam, I thank Dr. Guerra and Dr. Carlos for involving me in the care of this patient. Van Warren M.D. DR: KHARI JOB#: [id number] CC:
[2017-03-17] VITALS (24 sets, daily range): BP systolic 106–136; BP diastolic 52–63
[2017-03-17] MEDS: Meropenem 1 GM in NS 110 ML IVPB SCH ×3 (00:56→17:36)
[2017-03-17] MEDS: Docusate 100mg/10ml Liq GT PRN (05:37)
[2017-03-17] MEDS: NovoLOG Insulin Flexpen SUBQ SCH ×3 (05:37→17:40)
--- NOTE | 2017-03-17 08:08 | Critical Care Progress Note ---
Assessment/Plan Assessment/Plan 1. Respiratory failure 2. Chronic renal failure. 3. Anemia. 4. Leukocytosis, improved 5. Unstageable left heel ulcer, chronic with Kleb 6. Acute on chronic encephalopathy. 7. Gastrostomy tube 8. Aspiration. 9. Paroxysmal atrial fibrillation. 10. Permanent pacemaker. 11. History of Klebsiella urinary tract infection. 12. Failure to thrive 13. Hypertension. 14. Diabetes mellitus. 15. lactic acidosis PLAN care noted and reviewed IV antibiotics noted- adjust to Ertapenam respiratory care as outlined wean as able off the ventilator Ventilatory care noted SNF meds on board supportive care as outlined suction as needed nutrition tolerated with tube feeds; has GT oxygen therapy and titrate prognosis guarded medications/laboratory data/nursing notes/ICU care reviewed in detail note reviewed and edited care discussed with RN and RT ICU time spent 37 minutes Critical Care - Subjective Interval Events: on full support on the vent weaning ordered reduced LOC ROS Limited/Unobtainable: Yes Condition: critical EKG Rhythm: Sinus Rhythm Residuals: minimal Tube Feeding Tolerated: yes I&O: Intake and Output 03/16/17 03/17/17 19:00 07:00 Intake Total 2201.770 ml 2405.000 ml Output Total 630 ml 525 ml Balance 1571.770 ml 1880.000 ml Intake Free Water 150 ml 50 ml IV Total 1331.770 ml 1695.000 ml Tube Feeding 580 ml 600 ml Other 140 ml 60 ml Output Urine Total 630 ml 525 ml Critical Care - Objective CXR: pulmonary edema ET-Tube: 8.0 ET Position: 24 Last 24 Hour Vital Signs Date Time Temp Pulse Resp B/P Pulse Ox O2 Delivery O2 Flow Rate FiO2 03/17/17 08:00 35 03/17/17 07:00 83 25 120/58 100 Mechanical Ventilator 35 03/17/17 06:58 87 21 35 03/17/17 06:00 85 25 129/58 100 Mechanical Ventilator 03/17/17 05:09 85 24 35 03/17/17 05:00 88 23 123/56 100 Mechanical Ventilator 03/17/17 04:00 35 03/17/17 04:00 99.1 84 22 118/53 100 Mechanical Ventilator 03/17/17 04:00 83 03/17/17 03:30 88 26 35 03/17/17 03:00 82 24 130/61 100 Mechanical Ventilator 03/17/17 02:00 84 25 124/55 100 Mechanical Ventilator 35 03/17/17 01:30 84 25 35 03/17/17 01:00 85 25 114/57 100 Mechanical Ventilator 35 03/17/17 00:00 84 03/17/17 00:00 98.9 84 24 118/53 100 Mechanical Ventilator 35 03/17/17 00:00 35 03/16/17 23:30 86 24 35 03/16/17 23:00 85 24 113/51 100 Mechanical Ventilator 35 03/16/17 22:00 86 25 124/83 100 Mechanical Ventilator 35 03/16/17 21:30 86 24 35 03/16/17 21:00 86 23 130/56 100 Mechanical Ventilator 35 03/16/17 20:00 99.0 84 23 121/57 100 Mechanical Ventilator 35 03/16/17 20:00 84 03/16/17 20:00 35 03/16/17 19:30 81 19 35 03/16/17 19:00 82 19 113/52 100 Mechanical Ventilator 35 03/16/17 18:45 82 20 114/35 100 Mechanical Ventilator 35 03/16/17 18:30 81 21 111/33 100 Mechanical Ventilator 35 03/16/17 18:15 84 23 117/36 100 Mechanical Ventilator 35 03/16/17 18:00 81 22 121/58 100 Mechanical Ventilator 35 03/16/17 17:45 126/65 03/16/17 17:45 82 24 126/65 100 Mechanical Ventilator 35 03/16/17 17:30 83 22 122/61 100 Mechanical Ventilator 35 03/16/17 17:15 82 22 111/55 100 Mechanical Ventilator 35 03/16/17 17:00 82 25 120/56 100 Mechanical Ventilator 35 03/16/17 17:00 120/56 03/16/17 16:50 83 20 35 03/16/17 16:45 83 21 118/57 100 Mechanical Ventilator 35 03/16/17 16:30 81 18 112/54 100 Mechanical Ventilator 40 03/16/17 16:30 112/34 03/16/17 16:00 98.3 80 18 101/50 100 Mechanical Ventilator 40 03/16/17 16:00 101/50 03/16/17 16:00 40 03/16/17 16:00 82 7/06/23 15:30 82 22 122/57 100 Mechanical Ventilator 40 03/16/17 15:28 72 19 40 03/16/17 15:00 80 19 103/48 100 Mechanical Ventilator 40 03/16/17 15:00 103/48 03/16/17 14:45 79 19 102/46 100 Mechanical Ventilator 40 03/16/17 14:30 80 18 105/49 100 Mechanical Ventilator 40 03/16/17 14:30 105/49 03/16/17 14:15 77 16 86/43 100 Mechanical Ventilator 40 03/16/17 14:00 78 17 86/47 100 Mechanical Ventilator 40 03/16/17 14:00 86/47 03/16/17 13:45 77 20 89/42 100 Mechanical Ventilator 50 03/16/17 13:30 81 21 102/51 100 Mechanical Ventilator 50 03/16/17 13:15 79 18 101/48 100 Mechanical Ventilator 50 03/16/17 13:00 77 19 96/47 100 Mechanical Ventilator 50 03/16/17 13:00 96/47 03/16/17 12:55 78 17 40 03/16/17 12:30 77 18 96/51 100 Mechanical Ventilator 50 03/16/17 12:00 76 03/16/17 12:00 98.9 76 17 96/48 100 Mechanical Ventilator 50 03/16/17 12:00 96/48 03/16/17 12:00 50 03/16/17 11:30 79 17 99/51 99 Mechanical Ventilator 50 03/16/17 11:15 78 17 95/48 100 Mechanical Ventilator 50 03/16/17 11:00 96/48 03/16/17 11:00 80 18 96/48 100 Mechanical Ventilator 50 03/16/17 10:51 79 19 50 03/16/17 10:45 77 19 92/50 100 Mechanical Ventilator 50 03/16/17 10:30 77 20 88/47 100 Mechanical Ventilator 50 03/16/17 10:15 82 20 91/45 100 Mechanical Ventilator 50 03/16/17 10:00 102/48 03/16/17 10:00 83 20 102/48 100 Mechanical Ventilator 50 03/16/17 09:30 86 22 116/44 100 Mechanical Ventilator 50 03/16/17 09:15 87 22 109/49 100 Mechanical Ventilator 50 03/16/17 09:01 78 20 50 03/16/17 09:00 107/47 03/16/17 09:00 86 22 107/47 100 Mechanical Ventilator 50 03/16/17 08:45 87 23 115/46 100 Mechanical Ventilator 50 03/16/17 08:30 85 23 110/49 100 Mechanical Ventilator 50 03/16/17 08:21 113/58 03/16/17 08:15 86 21 113/56 100 Mechanical Ventilator 50 Labs: Labs Test 03/14/17 08:16 03/14/17 08:45 03/14/17 15:25 03/15/17 03:58 Arterial Blood pH 7.360 (7.350-7.450) Arterial Blood Partial Pressure CO2 36.9 mmHg (35.0-45.0) Arterial Blood Partial Pressure O2 100.7 mmHg (75.0-100.0) Arterial Blood HCO3 20.5 mmol/L (22.0-26.0) Arterial Blood Oxygen Saturation 96.7 % (92.0-98.0) Arterial Blood Base Excess -4.5 Yosvany Test Positive Lactic Acid Level 3.30 mmol/L (0.66-2.22) 2.30 mmol/L (0.66-2.22) 3.20 mmol/L (0.66-2.22) White Blood Count 9.8 K/UL (4.8-10.8) Red Blood Count 2.65 M/UL (4.70-6.10) Hemoglobin 7.8 G/DL (14.2-18.0) Hematocrit 24.8 % (42.0-52.0) Mean Corpuscular Volume 93 FL (80-99) Mean Corpuscular Hemoglobin 29.6 PG (27.0-31.0) Mean Corpuscular Hemoglobin Concent 31.7 G/DL (32.0-36.0) Red Cell Distribution Width 14.4 % (11.6-14.8) Platelet Count 251 K/UL (150-450) Mean Platelet Volume 7.0 FL (6.5-10.1) Neutrophils (%) (Auto) % (45.0-75.0) Lymphocytes (%) (Auto) % (20.0-45.0) Monocytes (%) (Auto) % (1.0-10.0) Eosinophils (%) (Auto) % (0.0-3.0) Basophils (%) (Auto) % (0.0-2.0) Differential Total Cells Counted 100 Neutrophils % (Manual) 73 % (45-75) Lymphocytes % (Manual) 14 % (20-45) Monocytes % (Manual) 2 % (1-10) Eosinophils % (Manual) 1 % (0-3) Basophils % (Manual) 0 % (0-2) Band Neutrophils 10 % (0-8) Other Cell Type Pathologist copmment Platelet Estimate Adequate Platelet Morphology Normal Hypochromasia 1+ Anisocytosis 1+ Sodium Level 141 mEQ/L (135-145) Potassium Level 4.3 mEQ/L (3.4-4.9) Chloride Level 104 mEQ/L (98-107) Carbon Dioxide Level 18 mEQ/L (20-30) Anion Gap 19 (5-15) Blood Urea Nitrogen 52 mg/dL (7-23) Creatinine 1.3 mg/dL (0.7-1.2) Estimat Glomerular Filtration Rate mL/min (>60) Glucose Level 123 mg/dL (74-106) Calcium Level 7.4 mg/dL (8.6-10.2) Total Bilirubin 0.4 mg/dL (0.0-1.2) Aspartate Amino Transf (AST/SGOT) 31 U/L (5-40) Alanine Aminotransferase (ALT/SGPT) 16 U/L (3-41) Alkaline Phosphatase 85 U/L (40-129) Total Protein 5.7 g/dL (6.6-8.7) Albumin 1.7 g/dL (3.5-5.2) Globulin 4.0 g/dL Albumin/Globulin Ratio 0.4 (1.0-2.7) Test 03/15/17 08:30 03/15/17 09:32 03/15/17 16:25 03/16/17 03:55 Lactic Acid Level 2.50 mmol/L (0.66-2.22) 2.10 mmol/L (0.66-2.22) 1.10 mmol/L (0.66-2.22) Arterial Blood pH 7.480 (7.350-7.450) Arterial Blood Partial Pressure CO2 29.9 mmHg (35.0-45.0) Arterial Blood Partial Pressure O2 91.9 mmHg (75.0-100.0) Arterial Blood HCO3 18.9 mmol/L (22.0-26.0) Arterial Blood Oxygen Saturation 95.4 % (92.0-98.0) Arterial Blood Base Excess -5.0 Yosvany Test Positive White Blood Count 8.7 K/UL (4.8-10.8) Red Blood Count 3.12 M/UL (4.70-6.10) Hemoglobin 9.1 G/DL (14.2-18.0) Hematocrit 28.1 % (42.0-52.0) Mean Corpuscular Volume 90 FL (80-99) Mean Corpuscular Hemoglobin 29.3 PG (27.0-31.0) Mean Corpuscular Hemoglobin Concent 32.4 G/DL (32.0-36.0) Red Cell Distribution Width 13.8 % (11.6-14.8) Platelet Count 232 K/UL (150-450) Mean Platelet Volume 6.7 FL (6.5-10.1) Neutrophils (%) (Auto) % (45.0-75.0) Lymphocytes (%) (Auto) % (20.0-45.0) Monocytes (%) (Auto) % (1.0-10.0) Eosinophils (%) (Auto) % (0.0-3.0) Basophils (%) (Auto) % (0.0-2.0) Sodium Level 142 mEQ/L (135-145) Potassium Level 4.2 mEQ/L (3.4-4.9) Chloride Level 107 mEQ/L (98-107) Carbon Dioxide Level 18 mEQ/L (20-30) Anion Gap 17 (5-15) Blood Urea Nitrogen 56 mg/dL (7-23) Creatinine 1.0 mg/dL (0.7-1.2) Estimat Glomerular Filtration Rate mL/min (>60) Glucose Level 152 mg/dL (74-106) Calcium Level 7.6 mg/dL (8.6-10.2) Total Bilirubin 0.6 mg/dL (0.0-1.2) Aspartate Amino Transf (AST/SGOT) 75 U/L (5-40) Alanine Aminotransferase (ALT/SGPT) 55 U/L (3-41) Alkaline Phosphatase 117 U/L (40-129) Total Protein 5.8 g/dL (6.6-8.7) Albumin 1.5 g/dL (3.5-5.2) Globulin 4.3 g/dL Albumin/Globulin Ratio 0.3 (1.0-2.7) Test 03/16/17 20:00 Vancomycin Level Trough 12.3 ug/mL (5.0-12.0) Objective: GENERAL: The patient is sedated on the ventilator NAD HEENT: Oropharynx is moist. Gag present. NECK: Supple. Carotids 2+. LUNGS: Coarse breath sounds and minimal rhonchi. No wheezes. CARDIAC: S1 and S2. Regular rate and rhythm. Soft at the parasternal border. No rubs or gallops. ABDOMEN: Soft and nontender. No distention. no HSM; GT EXTREMITIES: No cyanosis. No clubbing. No edema. left heel wound NEUROLOGIC: Grossly nonfocal.sedated reviewed and edited Accucheck: 179 REJI OJEDA Mar 17, 2017 08:08
[2017-03-17] MEDS: Tamsulosin 0.4mg cap GT SCH (08:22)
[2017-03-17] MEDS: Ferrous Sulfate 300 MG/5 ML UDC GT SCH (08:23)
[2017-03-17] MEDS: sitaGLIPtin 25mg tab GT SCH (08:23)
[2017-03-17] MEDS: Ascorbic Acid 500mg tab GT SCH (08:23)
[2017-03-17] MEDS: Heparin 5000 units/ml inj SUBQ SCH ×2 (08:25→21:33)
--- NOTE | 2017-03-17 08:29 | General Progress Note ---
Assessment/Plan Problem List: (1) Shock ICD Codes: R57.9 - Shock, unspecified SNOMED: 69391144 (2) toxic metabo (3) toxic metabolic encephalopathy 2/2 infecion/metabolc derangement (4) Respiratory failure ICD Codes: J96.90 - Respiratory failure, unspecified, unspecified whether with hypoxia or hypercapnia SNOMED: 125684305 Qualifiers: Qualified Codes: J96.01 - Acute respiratory failure with hypoxia (5) Renal insufficiency ICD Codes: N28.9 - Disorder of kidney and ureter, unspecified SNOMED: 955991976, 026361816 (6) UTI (urinary tract infection) ICD Codes: N39.0 - Urinary tract infection, site not specified SNOMED: 59162582 Qualifiers: Qualified Codes: T83.511A - Infection and inflammatory reaction due to indwelling urethral catheter, initial encounter; N39.0 - Urinary tract infection , site not specified (7) Pneumonia ICD Codes: J18.9 - Pneumonia, unspecified organism SNOMED: 494922604 Qualifiers: Qualified Codes: J18.9 - Pneumonia, unspecified organism (8) Severe sepsis ICD Codes: A41.9 - Sepsis, unspecified organism; R65.20 - Severe sepsis without septic shock SNOMED: 48903618 Status: stable, progressing Assessment/Plan lasix x 1 iv abx follow up cultures wean vent monitor labs critical and guarded Subjective ROS Limited/Unobtainable: Yes Constitutional: Reports: malaise, weakness HEENT: Reports: no symptoms Cardiovascular: Reports: edema Respiratory: Reports: shortness of breath, sputum Gastrointestinal/Abdominal: Reports: difficulty swallowing Genitourinary: Reports: no symptoms Neurologic/Psychiatric: Reports: pre-existing deficit Endocrine: Reports: no symptoms Hematologic/Lymphatic: Reports: anemia Allergies: Coded Allergies: No Known Allergies (Unverified , 01/07/17) All Systems: reviewed and negative except above Subjective no overnight events. remains on the vent. calm. off pressors. picc placed. TLC removed. failed cpap. tolerated 8 hrs of simv Objective Last 24 Hour Vital Signs Date Time Temp Pulse Resp B/P Pulse Ox O2 Delivery O2 Flow Rate FiO2 03/17/17 08:00 98.8 82 21 132/63 100 Mechanical Ventilator 35 03/17/17 08:00 35 03/17/17 07:00 83 25 120/58 100 Mechanical Ventilator 35 03/17/17 06:58 87 21 35 03/17/17 06:00 85 25 129/58 100 Mechanical Ventilator 35 03/17/17 05:09 85 24 35 03/17/17 05:00 88 23 123/56 100 Mechanical Ventilator 35 03/17/17 04:00 35 03/17/17 04:00 99.1 84 22 118/53 100 Mechanical Ventilator 35 03/17/17 04:00 83 03/17/17 03:30 88 26 35 03/17/17 03:00 82 24 130/61 100 Mechanical Ventilator 35 03/17/17 02:00 84 25 124/55 100 Mechanical Ventilator 35 03/17/17 01:30 84 25 35 03/17/17 01:00 85 25 114/57 100 Mechanical Ventilator 35 03/17/17 00:00 84 03/17/17 00:00 98.9 84 24 118/53 100 Mechanical Ventilator 35 03/17/17 00:00 35 03/16/17 23:30 86 24 35 03/16/17 23:00 85 24 113/51 100 Mechanical Ventilator 35 03/16/17 22:00 86 25 124/83 100 Mechanical Ventilator 35 03/16/17 21:30 86 24 35 03/16/17 21:00 86 23 130/56 100 Mechanical Ventilator 35 03/16/17 20:00 99.0 84 23 121/57 100 Mechanical Ventilator 35 03/16/17 20:00 84 03/16/17 20:00 35 03/16/17 19:30 81 19 35 03/16/17 19:00 82 19 113/52 100 Mechanical Ventilator 35 03/16/17 18:45 82 20 114/35 100 Mechanical Ventilator 35 03/16/17 18:30 81 21 111/33 100 Mechanical Ventilator 35 03/16/17 18:15 84 23 117/36 100 Mechanical Ventilator 35 03/16/17 18:00 81 22 121/58 100 Mechanical Ventilator 35 03/16/17 17:45 126/65 03/16/17 17:45 82 24 126/65 100 Mechanical Ventilator 35 03/16/17 17:30 83 22 122/61 100 Mechanical Ventilator 35 03/16/17 17:15 82 22 111/55 100 Mechanical Ventilator 35 03/16/17 17:00 82 25 120/56 100 Mechanical Ventilator 35 03/16/17 17:00 120/56 03/16/17 16:50 83 20 35 03/16/17 16:45 83 21 118/57 100 Mechanical Ventilator 35 03/16/17 16:30 81 18 112/54 100 Mechanical Ventilator 40 03/16/17 16:30 112/34 03/16/17 16:00 98.3 80 18 101/50 100 Mechanical Ventilator 40 03/16/17 16:00 101/50 03/16/17 16:00 40 03/16/17 16:00 82 03/16/17 15:30 82 22 122/57 100 Mechanical Ventilator 40 03/16/17 15:28 72 19 40 03/16/17 15:00 80 19 103/48 100 Mechanical Ventilator 40 03/16/17 15:00 103/48 03/16/17 14:45 79 19 102/46 100 Mechanical Ventilator 40 03/16/17 14:30 80 18 105/49 100 Mechanical Ventilator 40 03/16/17 14:30 105/49 03/16/17 14:15 77 16 86/43 100 Mechanical Ventilator 40 03/16/17 14:00 78 17 86/47 100 Mechanical Ventilator 40 03/16/17 14:00 86/47 03/16/17 13:45 77 20 89/42 100 Mechanical Ventilator 50 03/16/17 13:30 81 21 102/51 100 Mechanical Ventilator 50 03/16/17 13:15 79 18 101/48 100 Mechanical Ventilator 50 03/16/17 13:00 77 19 96/47 100 Mechanical Ventilator 50 03/16/17 13:00 96/47 03/16/17 12:55 78 17 40 03/16/17 12:30 77 18 96/51 100 Mechanical Ventilator 50 03/16/17 12:00 76 03/16/17 12:00 98.9 76 17 96/48 100 Mechanical Ventilator 50 03/16/17 12:00 96/48 03/16/17 12:00 50 03/16/17 11:30 79 17 99/51 99 Mechanical Ventilator 50 03/16/17 11:15 78 17 95/48 100 Mechanical Ventilator 50 03/16/17 11:00 96/48 03/16/17 11:00 80 18 96/48 100 Mechanical Ventilator 50 03/16/17 10:51 79 19 50 03/16/17 10:45 77 19 92/50 100 Mechanical Ventilator 50 03/16/17 10:30 77 20 88/47 100 Mechanical Ventilator 50 03/16/17 10:15 82 20 91/45 100 Mechanical Ventilator 50 03/16/17 10:00 102/48 03/16/17 10:00 83 20 102/48 100 Mechanical Ventilator 50 03/16/17 09:30 86 22 116/44 100 Mechanical Ventilator 50 03/16/17 09:15 87 22 109/49 100 Mechanical Ventilator 50 03/16/17 09:01 78 20 50 03/16/17 09:00 107/47 03/16/17 09:00 86 22 107/47 100 Mechanical Ventilator 50 03/16/17 08:45 87 23 115/46 100 Mechanical Ventilator 50 03/16/17 08:30 85 23 110/49 100 Mechanical Ventilator 50 Intake and Output 03/16/17 03/17/17 19:00 07:00 Intake Total 2201.770 ml 2405.000 ml Output Total 630 ml 525 ml Balance 1571.770 ml 1880.000 ml Intake Free Water 150 ml 50 ml IV Total 1331.770 ml 1695.000 ml Tube Feeding 580 ml 600 ml Other 140 ml 60 ml Output Urine Total 630 ml 525 ml Laboratory Tests 03/16/17 20:00: Vancomycin Level Trough 12.3H, Urine Legionella Antigen [Pending] Height (Feet): 6 Weight (Pounds): 183 Objective General Appearance: WD/WN, lethargic, confused Neck: supple Cardiovascular: regular rhythm Respiratory/Chest: lungs clear Abdomen: normal bowel sounds, non tender, soft, no organomegaly Edema: no edema noted Arm (L), no edema noted Arm (R), no edema noted Leg (L), no edema noted Leg (R), no edema noted Pedal (L), no edema noted Pedal (R), no edema noted Generalized Neurologic: disoriented, unresponsive Skin: normal pigmentation WENDIE CASTELLANOS Mar 17, 2017 08:29
[2017-03-17 09:35] LABS: BASOPHILS % (AUTO) 0.3 % (0.0-2.0); EOSINOPHILS % (AUTO) 1.6 % (0.0-3.0); LYMPHOCYTES % (AUTO) 11.5 % (20.0-45.0); MEAN CORPUSCULAR HEMOGLOBIN 29.5 PG (27.0-31.0); MEAN CORPUSCULAR HGB CONC 32.2 G/DL (32.0-36.0); MEAN CORPUSCULAR VOLUME 92 FL (80-99); MONOCYTES % (AUTO) 5.8 % (1.0-10.0); NEUTROPHILS % (AUTO) 80.8 % (45.0-75.0); PLATELET COUNT 186 K/UL (150-450); RED BLOOD COUNT 2.86 M/UL (4.70-6.10); RED CELL DISTRIBUTION WIDTH 13.7 % (11.6-14.8); WHITE BLOOD COUNT 8.9 K/UL (4.8-10.8)
[2017-03-17 09:50] LABS: ALANINE AMINOTRANSFERASE 51 U/L (3-41); ALBUMIN/GLOBULIN RATIO 0.5 (1.0-2.7); ANION GAP 10 (5-15); ASPARTATE AMINO TRANSFERASE 35 U/L (5-40); CALCIUM 7.4 mg/dL (8.6-10.2); CARBON DIOXIDE 21 mEQ/L (20-30); CHLORIDE 110 mEQ/L (98-107); CREATININE 1.1 mg/dL (0.7-1.2); HEMOLYSIS 0; POTASSIUM 3.9 mEQ/L (3.4-4.9); SODIUM 141 mEQ/L (135-145); TOTAL PROTEIN 5.6 g/dL (6.6-8.7)
[2017-03-17] MEDS ORDERED: NS 275ml ONE (10:41)
[2017-03-17 10:43] LABS: ABG BASE EXCESS -4.6; ABG PCO2 46.5 mmHg (35.0-45.0)
[2017-03-17 10:44] LABS: ABG ALLEN TEST POSITIVE
--- NOTE | 2017-03-17 12:00 | Infectious Diseases Prog Note ---
Assessment/Plan Assessment/Plan antibiotics : vancomycin iv, meropenem A 1. fungal UTI 2. pneumonia 3. septic shock 4. respiratory failure 5. leucocytosis improving 6. DM P 1. continue vancomycin iv, meropenem 2. start fluconazole 3. will follwo up cultures Subjective ROS Limited/Unobtainable: Yes Allergies: Coded Allergies: No Known Allergies (Unverified , 01/07/17) Objective Vital Signs Last 24 Hour Vital Signs Date Time Temp Pulse Resp B/P Pulse Ox O2 Delivery O2 Flow Rate FiO2 03/17/17 11:00 90 30 130/61 100 Mechanical Ventilator 30 03/17/17 10:00 88 27 118/63 100 Mechanical Ventilator 35 03/17/17 09:00 86 24 118/55 100 Mechanical Ventilator 35 03/17/17 08:45 88 26 35 03/17/17 08:00 98.8 82 21 132/63 100 Mechanical Ventilator 35 03/17/17 08:00 82 03/17/17 08:00 35 03/17/17 07:00 83 25 120/58 100 Mechanical Ventilator 35 03/17/17 06:58 87 21 35 03/17/17 06:00 85 25 129/58 100 Mechanical Ventilator 35 03/17/17 05:09 85 24 35 03/17/17 05:00 88 23 123/56 100 Mechanical Ventilator 35 03/17/17 04:00 35 03/17/17 04:00 99.1 84 22 118/53 100 Mechanical Ventilator 35 03/17/17 04:00 83 03/17/17 03:30 88 26 35 03/17/17 03:00 82 24 130/61 100 Mechanical Ventilator 35 03/17/17 02:00 84 25 124/55 100 Mechanical Ventilator 35 03/17/17 01:30 84 25 35 03/17/17 01:00 85 25 114/57 100 Mechanical Ventilator 35 03/17/17 00:00 84 03/17/17 00:00 98.9 84 24 118/53 100 Mechanical Ventilator 35 03/17/17 00:00 35 03/16/17 23:30 86 24 35 03/16/17 23:00 85 24 113/51 100 Mechanical Ventilator 35 03/16/17 22:00 86 25 124/83 100 Mechanical Ventilator 35 03/16/17 21:30 86 24 35 03/16/17 21:00 86 23 130/56 100 Mechanical Ventilator 35 7/10/17 20:00 99.0 84 23 121/57 100 Mechanical Ventilator 35 7/10/17 20:00 84 7/10/17 20:00 35 7/10/17 19:30 81 19 35 7/10/17 19:00 82 19 113/52 100 Mechanical Ventilator 35 7/10/17 18:45 82 20 114/35 100 Mechanical Ventilator 35 7/10/17 18:30 81 21 111/33 100 Mechanical Ventilator 35 7/10/17 18:15 84 23 117/36 100 Mechanical Ventilator 35 7/10/17 18:00 81 22 121/58 100 Mechanical Ventilator 35 7/10/17 17:45 126/65 7/10/17 17:45 82 24 126/65 100 Mechanical Ventilator 35 7/10/17 17:30 83 22 122/61 100 Mechanical Ventilator 35 7/10/17 17:15 82 22 111/55 100 Mechanical Ventilator 35 7/10/17 17:00 82 25 120/56 100 Mechanical Ventilator 35 7/10/17 17:00 120/56 7 16:50 83 20 35 7/10/17 16:45 83 21 118/57 100 Mechanical Ventilator 35 7/10/17 16:30 81 18 112/54 100 Mechanical Ventilator 40 7 16:30 112/34 7/17 16:00 98.3 80 18 101/50 100 Mechanical Ventilator 40 7/17 16:00 101/50 7 16:00 40 7/06/23 16:00 82 /06/23 15:30 82 22 122/57 100 Mechanical Ventilator 40 7 15:28 72 19 40 7/06/23 15:00 80 19 103/48 100 Mechanical Ventilator 40 7 15:00 103/48 7/06/23 14:45 79 19 102/46 100 Mechanical Ventilator 40 7 14:30 80 18 105/49 100 Mechanical Ventilator 40 7 14:30 105/49 7/06/23 14:15 77 16 86/43 100 Mechanical Ventilator 40 7 14:00 78 17 86/47 100 Mechanical Ventilator 40 7 14:00 86/47 7 13:45 77 20 89/42 100 Mechanical Ventilator 50 7 13:30 81 21 102/51 100 Mechanical Ventilator 50 03/16/17 13:15 79 18 101/48 100 Mechanical Ventilator 50 03/16/17 13:00 77 19 96/47 100 Mechanical Ventilator 50 03/16/17 13:00 96/47 03/16/17 12:55 78 17 40 03/16/17 12:30 77 18 96/51 100 Mechanical Ventilator 50 03/16/17 12:00 76 03/16/17 12:00 98.9 76 17 96/48 100 Mechanical Ventilator 50 03/16/17 12:00 96/48 03/16/17 12:00 50 Height (Feet): 6 Weight (Pounds): 183 HEENT: other - intubated Respiratory/Chest: lungs clear Cardiovascular: normal rate, regular rhythm, no gallop/murmur Abdomen: soft, non tender, other - GT Extremities: other - + edema, right arm PICC Laboratory Tests Test 03/16/17 20:00 03/17/17 09:15 03/17/17 10:35 Vancomycin Level Trough 12.3 ug/mL (5.0-12.0) H Urine Legionella Antigen Pending White Blood Count 8.9 K/UL (4.8-10.8) Red Blood Count 2.86 M/UL (4.70-6.10) L Hemoglobin 8.4 G/DL (14.2-18.0) L Hematocrit 26.2 % (42.0-52.0) L Mean Corpuscular Volume 92 FL (80-99) Mean Corpuscular Hemoglobin 29.5 PG (27.0-31.0) Mean Corpuscular Hemoglobin Concent 32.2 G/DL (32.0-36.0) Red Cell Distribution Width 13.7 % (11.6-14.8) Platelet Count 186 K/UL (150-450) Mean Platelet Volume 6.0 FL (6.5-10.1) L Neutrophils (%) (Auto) 80.8 % (45.0-75.0) H Lymphocytes (%) (Auto) 11.5 % (20.0-45.0) L Monocytes (%) (Auto) 5.8 % (1.0-10.0) Eosinophils (%) (Auto) 1.6 % (0.0-3.0) Basophils (%) (Auto) 0.3 % (0.0-2.0) Sodium Level 141 mEQ/L (135-145) Potassium Level 3.9 mEQ/L (3.4-4.9) Chloride Level 110 mEQ/L (98-107) H Carbon Dioxide Level 21 mEQ/L (20-30) Anion Gap 10 (5-15) Blood Urea Nitrogen 47 mg/dL (7-23) H Creatinine 1.1 mg/dL (0.7-1.2) Estimat Glomerular Filtration Rate mL/min (>60) Glucose Level 191 mg/dL (74-106) H Calcium Level 7.4 mg/dL (8.6-10.2) L Magnesium Level 1.8 mg/dL (1.7-2.5) Total Bilirubin 0.5 mg/dL (0.0-1.2) Aspartate Amino Transf (AST/SGOT) 35 U/L (5-40) Alanine Aminotransferase (ALT/SGPT) 51 U/L (3-41) H Alkaline Phosphatase 119 U/L (40-129) Total Protein 5.6 g/dL (6.6-8.7) L Albumin 1.9 g/dL (3.5-5.2) L Globulin 3.7 g/dL Albumin/Globulin Ratio 0.5 (1.0-2.7) L Arterial Blood pH 7.289 (7.350-7.450) Arterial Blood Partial Pressure CO2 46.5 mmHg (35.0-45.0) H Arterial Blood Partial Pressure O2 117.3 mmHg (75.0-100.0) H Arterial Blood HCO3 21.8 mmol/L (22.0-26.0) L Arterial Blood Oxygen Saturation 97.6 % (92.0-98.0) Arterial Blood Base Excess -4.6 Yosvany Test Positive VINICIO VAUGHAN Mar 17, 2017 12:00
[2017-03-17] MEDS: Fluconazole 100mg tab ORAL SCH (12:15)
[2017-03-17] MEDS: Dyna-Hex 2% Top Sol 8oz TOPIC SCH (21:31)
[2017-03-17] MEDS: Vancomycin 1gm/D5W 275ml IVPB SCH ×2 (21:32)
[2017-03-18] VITALS (24 sets, daily range): BP systolic 111–167; BP diastolic 49–87
[2017-03-18] MEDS: NovoLOG Insulin Flexpen SUBQ SCH ×4 (00:22→18:03)
[2017-03-18] MEDS: Meropenem 1 GM in NS 110 ML IVPB SCH ×3 (01:05→18:01)
[2017-03-18 05:15] LABS: BASOPHILS % (AUTO) 0.8 % (0.0-2.0); LYMPHOCYTES % (AUTO) 12.4 % (20.0-45.0); MEAN CORPUSCULAR HEMOGLOBIN 29.5 PG (27.0-31.0); MEAN CORPUSCULAR HGB CONC 31.7 G/DL (32.0-36.0); MEAN CORPUSCULAR VOLUME 93 FL (80-99); MEAN PLATELET VOLUME 6.8 FL (6.5-10.1); MONOCYTES % (AUTO) 7.6 % (1.0-10.0); NEUTROPHILS % (AUTO) 78.1 % (45.0-75.0); PLATELET COUNT 199 K/UL (150-450); RED BLOOD COUNT 2.95 M/UL (4.70-6.10); RED CELL DISTRIBUTION WIDTH 14.3 % (11.6-14.8); WHITE BLOOD COUNT 8.1 K/UL (4.8-10.8)
[2017-03-18 05:24] LABS: ALANINE AMINOTRANSFERASE 38 U/L (3-41); ALBUMIN/GLOBULIN RATIO 0.5 (1.0-2.7); ANION GAP 14 (5-15); ASPARTATE AMINO TRANSFERASE 23 U/L (5-40); CALCIUM 8.4 mg/dL (8.6-10.2); CARBON DIOXIDE 22 mEQ/L (20-30); CHLORIDE 107 mEQ/L (98-107); CREATININE 0.9 mg/dL (0.7-1.2); HEMOLYSIS 0; POTASSIUM 4.2 mEQ/L (3.4-4.9); SODIUM 143 mEQ/L (135-145)
[2017-03-18] MEDS ORDERED: Milk of Magnesia 30ml Ud ORAL PRN ×2 (08:30)
[2017-03-18] MEDS: sitaGLIPtin 25mg tab GT SCH (08:39)
[2017-03-18] MEDS: Ascorbic Acid 500mg tab GT SCH (08:39)
[2017-03-18] MEDS: Tamsulosin 0.4mg cap GT SCH (08:39)
[2017-03-18] MEDS: Fluconazole 100mg tab ORAL SCH (08:39)
[2017-03-18] MEDS: Ferrous Sulfate 300 MG/5 ML UDC GT SCH (08:40)
[2017-03-18] MEDS: Heparin 5000 units/ml inj SUBQ SCH ×2 (08:48→20:43)
--- NOTE | 2017-03-18 09:17 | General Progress Note ---
Assessment/Plan Problem List: (1) Shock ICD Codes: R57.9 - Shock, unspecified SNOMED: 68737531 (2) toxic metabo (3) toxic metabolic encephalopathy 2/2 infecion/metabolc derangement (4) Respiratory failure ICD Codes: J96.90 - Respiratory failure, unspecified, unspecified whether with hypoxia or hypercapnia SNOMED: 312803245 Qualifiers: Qualified Codes: J96.01 - Acute respiratory failure with hypoxia (5) Renal insufficiency ICD Codes: N28.9 - Disorder of kidney and ureter, unspecified SNOMED: 182476625, 989209213 (6) UTI (urinary tract infection) ICD Codes: N39.0 - Urinary tract infection, site not specified SNOMED: 65196624 Qualifiers: Qualified Codes: T83.511A - Infection and inflammatory reaction due to indwelling urethral catheter, initial encounter; N39.0 - Urinary tract infection , site not specified (7) Pneumonia ICD Codes: J18.9 - Pneumonia, unspecified organism SNOMED: 588822200 Qualifiers: Qualified Codes: J18.9 - Pneumonia, unspecified organism (8) Severe sepsis ICD Codes: A41.9 - Sepsis, unspecified organism; R65.20 - Severe sepsis without septic shock SNOMED: 40636570 Status: stable Assessment/Plan iv abx follow up cultures wean vent monitor labs laxatives ct head critical and guarded Subjective ROS Limited/Unobtainable: Yes Constitutional: Reports: malaise, weakness HEENT: Reports: no symptoms Cardiovascular: Reports: no symptoms Respiratory: Reports: shortness of breath, sputum Gastrointestinal/Abdominal: Reports: difficulty swallowing Genitourinary: Reports: no symptoms Neurologic/Psychiatric: Reports: pre-existing deficit Endocrine: Reports: no symptoms Hematologic/Lymphatic: Reports: anemia Allergies: Coded Allergies: No Known Allergies (Unverified , 01/07/17) All Systems: reviewed and negative except above Subjective no overnight events. tolerated cpap yesterday. significant secretions. suctioned q2. not waking up. off sedation for 48hrs. constipated Objective Last 24 Hour Vital Signs Date Time Temp Pulse Resp B/P Pulse Ox O2 Delivery O2 Flow Rate FiO2 03/18/17 09:01 90 26 30 03/18/17 09:00 87 28 146/62 98 Mechanical Ventilator 30 03/18/17 08:00 30 03/18/17 08:00 99.6 90 20 142/57 100 Mechanical Ventilator 30 03/18/17 07:00 87 18 144/54 99 Mechanical Ventilator 30 03/18/17 06:47 91 30 30 03/18/17 06:00 77 18 159/87 100 Mechanical Ventilator 30 03/18/17 05:09 86 28 30 03/18/17 05:00 77 20 167/87 100 Mechanical Ventilator 30 03/18/17 04:00 30 03/18/17 04:00 95 03/18/17 04:00 97.9 84 23 150/80 100 Mechanical Ventilator 30 03/18/17 03:23 89 27 30 03/18/17 03:00 83 22 147/84 100 Mechanical Ventilator 30 03/18/17 02:00 84 22 125/56 100 Mechanical Ventilator 30 03/18/17 01:25 87 30 30 03/18/17 01:00 86 25 130/58 100 Mechanical Ventilator 30 03/18/17 00:00 86 03/18/17 00:00 97.8 85 24 111/49 100 Mechanical Ventilator 30 03/18/17 00:00 30 03/17/17 23:29 88 30 30 03/17/17 23:00 88 25 126/53 100 Mechanical Ventilator 30 03/17/17 22:15 123/62 03/17/17 22:00 79 25 123/62 100 Mechanical Ventilator 30 03/17/17 21:20 82 24 30 03/17/17 21:00 87 26 134/55 100 Mechanical Ventilator 30 03/17/17 21:00 30 03/17/17 20:00 84 03/17/17 20:00 98.0 85 26 136/61 100 Mechanical Ventilator 30 03/17/17 19:16 86 27 30 03/17/17 19:00 84 24 126/60 100 Mechanical Ventilator 30 03/17/17 18:00 85 24 126/59 100 Mechanical Ventilator 30 03/17/17 17:00 88 26 128/60 100 Mechanical Ventilator 30 03/17/17 16:51 77 22 35 03/17/17 16:00 99.0 82 26 106/53 100 Mechanical Ventilator 30 03/17/17 16:00 85 03/17/17 16:00 30 03/17/17 15:00 84 26 118/57 100 Mechanical Ventilator 30 03/17/17 14:53 85 24 35 03/17/17 14:00 99.5 88 26 111/52 100 Mechanical Ventilator 30 03/17/17 13:15 99.7 03/17/17 13:00 99.7 90 27 112/53 100 Mechanical Ventilator 30 03/17/17 12:52 85 27 35 03/17/17 12:00 35 03/17/17 12:00 87 03/17/17 12:00 100.1 92 27 121/56 100 Mechanical Ventilator 35 03/17/17 11:00 93 28 35 03/17/17 11:00 90 30 130/61 100 Mechanical Ventilator 35 03/17/17 10:00 88 27 118/63 100 Mechanical Ventilator 35 03/17/17 09:30 35 Intake and Output 03/17/17 03/18/17 19:00 07:00 Intake Total 1460 ml 1745 ml Output Total 1940 ml 1050 ml Balance -480 ml 695 ml Intake Free Water 100 ml 150 ml IV Total 660 ml 1045 ml Tube Feeding 600 ml 550 ml Other 100 ml Output Urine Total 1940 ml 1050 ml Laboratory Tests 03/17/17 10:35: Arterial Blood pH 7.289L, Arterial Blood Partial Pressure CO2 46.5H, Arterial Blood Partial Pressure O2 117.3H, Arterial Blood HCO3 21.8L, Arterial Blood Oxygen Saturation 97.6, Arterial Blood Base Excess -4.6, Yosvany Test Positive 03/18/17 04:00: White Blood Count 8.1, Red Blood Count 2.95L, Hemoglobin 8.7L, Hematocrit 27.4L , Mean Corpuscular Volume 93, Mean Corpuscular Hemoglobin 29.5, Mean Corpuscular Hemoglobin Concent 31.7L, Red Cell Distribution Width 14.3, Platelet Count 199, Mean Platelet Volume 6.8, Neutrophils (%) (Auto) 78.1H, Lymphocytes (%) (Auto) 12.4L, Monocytes (%) (Auto) 7.6, Eosinophils (%) (Auto) 1.0, Basophils (%) (Auto) 0.8, Sodium Level 143, Potassium Level 4.2, Chloride Level 107, Carbon Dioxide Level 22, Anion Gap 14, Blood Urea Nitrogen 45H, Creatinine 0.9, Estimat Glomerular Filtration Rate , Glucose Level 207H, Calcium Level 8.4L, Total Bilirubin 0.5, Aspartate Amino Transf (AST/SGOT) 23, Alanine Aminotransferase (ALT/SGPT) 38, Alkaline Phosphatase 184H, Total Protein 6.0L, Albumin 2.0L, Globulin 4.0, Albumin/Globulin Ratio 0.5L Height (Feet): 6 Weight (Pounds): 182 Objective General Appearance: WD/WN, lethargic, confused Neck: supple Cardiovascular: regular rhythm Respiratory/Chest: lungs clear Abdomen: normal bowel sounds, non tender, soft, no organomegaly Edema: no edema noted Arm (L), no edema noted Arm (R), no edema noted Leg (L), no edema noted Leg (R), no edema noted Pedal (L), no edema noted Pedal (R), no edema noted Generalized Neurologic: disoriented, unresponsive Skin: normal pigmentation WENDIE CASTELLANOS Mar 18, 2017 09:17
--- NOTE | 2017-03-18 09:18 | Critical Care Progress Note ---
Assessment/Plan Assessment/Plan 1. Respiratory failure 2. Chronic renal failure. 3. Anemia. 4. Leukocytosis 5. Unstageable left heel ulcer, chronic with Kleb 6. Acute on chronic encephalopathy. 7. Gastrostomy tube 8. Aspiration. 9. Paroxysmal atrial fibrillation. 10. Permanent pacemaker. 11. History of Klebsiella urinary tract infection. 12. Failure to thrive 13. Hypertension. 14. Diabetes mellitus. 15. lactic acidosis PLAN care noted and reviewed IV antibiotics noted- Ertapenam Lasix with caution respiratory care as outlined wean as able off the ventilator Ventilatory care noted SNF meds supportive care as outlined suction as needed nutrition tolerated with tube feeds; has GT oxygen therapy and titrate prognosis guarded hope to avoid trach medications/laboratory data/nursing notes/ICU care reviewed in detail note reviewed and edited care discussed with RN and RT ICU time spent 38 minutes Critical Care - Subjective Interval Events: not weaning well care noted acidemia noted lasix given ROS Limited/Unobtainable: Yes Condition: critical EKG Rhythm: Sinus Rhythm Residuals: minimal Tube Feeding Tolerated: yes I&O: Intake and Output 03/17/17 03/18/17 19:00 07:00 Intake Total 1460 ml 1745 ml Output Total 1940 ml 1050 ml Balance -480 ml 695 ml Intake Free Water 100 ml 150 ml IV Total 660 ml 1045 ml Tube Feeding 600 ml 550 ml Other 100 ml Output Urine Total 1940 ml 1050 ml Critical Care - Objective ET-Tube: 8.0 ET Position: 24 Last 24 Hour Vital Signs Date Time Temp Pulse Resp B/P Pulse Ox O2 Delivery O2 Flow Rate FiO2 03/18/17 09:01 90 26 30 03/18/17 09:00 87 28 146/62 98 Mechanical Ventilator 30 03/18/17 08:00 30 03/18/17 08:00 99.6 90 20 142/57 100 Mechanical Ventilator 30 03/18/17 07:00 87 18 144/54 99 Mechanical Ventilator 30 03/18/17 06:47 91 30 30 03/18/17 06:00 77 18 159/87 100 Mechanical Ventilator 30 03/18/17 05:09 86 28 30 03/18/17 05:00 77 20 167/87 100 Mechanical Ventilator 30 03/18/17 04:00 30 03/18/17 04:00 95 03/18/17 04:00 97.9 84 23 150/80 100 Mechanical Ventilator 30 03/18/17 03:23 89 27 30 03/18/17 03:00 83 22 147/84 100 Mechanical Ventilator 30 03/18/17 02:00 84 22 125/56 100 Mechanical Ventilator 30 03/18/17 01:25 87 30 30 03/18/17 01:00 86 25 130/58 100 Mechanical Ventilator 30 03/18/17 00:00 86 03/18/17 00:00 97.8 85 24 111/49 100 Mechanical Ventilator 30 03/18/17 00:00 30 03/17/17 23:29 88 30 30 03/17/17 23:00 88 25 126/53 100 Mechanical Ventilator 30 03/17/17 22:15 123/62 03/17/17 22:00 79 25 123/62 100 Mechanical Ventilator 30 03/17/17 21:20 82 24 30 03/17/17 21:00 87 26 134/55 100 Mechanical Ventilator 30 03/17/17 21:00 30 03/17/17 20:00 84 03/17/17 20:00 98.0 85 26 136/61 100 Mechanical Ventilator 30 03/17/17 19:16 86 27 30 03/17/17 19:00 84 24 126/60 100 Mechanical Ventilator 30 03/17/17 18:00 85 24 126/59 100 Mechanical Ventilator 30 03/17/17 17:00 88 26 128/60 100 Mechanical Ventilator 30 03/17/17 16:51 77 22 35 03/17/17 16:00 99.0 82 26 106/53 100 Mechanical Ventilator 30 03/17/17 16:00 85 03/17/17 16:00 30 03/17/17 15:00 84 26 118/57 100 Mechanical Ventilator 30 03/17/17 14:53 85 24 35 03/17/17 14:00 99.5 88 26 111/52 100 Mechanical Ventilator 30 03/17/17 13:15 99.7 03/17/17 13:00 99.7 90 27 112/53 100 Mechanical Ventilator 30 03/17/17 12:52 85 27 35 03/17/17 12:00 35 03/17/17 12:00 87 03/17/17 12:00 100.1 92 27 121/56 100 Mechanical Ventilator 35 03/17/17 11:00 93 28 35 03/17/17 11:00 90 30 130/61 100 Mechanical Ventilator 35 03/17/17 10:00 88 27 118/63 100 Mechanical Ventilator 35 03/17/17 09:30 35 Labs: Labs Test 03/15/17 09:32 03/15/17 16:25 03/16/17 03:55 03/16/17 20:00 Arterial Blood pH 7.480 (7.350-7.450) Arterial Blood Partial Pressure CO2 29.9 mmHg (35.0-45.0) Arterial Blood Partial Pressure O2 91.9 mmHg (75.0-100.0) Arterial Blood HCO3 18.9 mmol/L (22.0-26.0) Arterial Blood Oxygen Saturation 95.4 % (92.0-98.0) Arterial Blood Base Excess -5.0 Yosvany Test Positive Lactic Acid Level 2.10 mmol/L (0.66-2.22) 1.10 mmol/L (0.66-2.22) White Blood Count 8.7 K/UL (4.8-10.8) Red Blood Count 3.12 M/UL (4.70-6.10) Hemoglobin 9.1 G/DL (14.2-18.0) Hematocrit 28.1 % (42.0-52.0) Mean Corpuscular Volume 90 FL (80-99) Mean Corpuscular Hemoglobin 29.3 PG (27.0-31.0) Mean Corpuscular Hemoglobin Concent 32.4 G/DL (32.0-36.0) Red Cell Distribution Width 13.8 % (11.6-14.8) Platelet Count 232 K/UL (150-450) Mean Platelet Volume 6.7 FL (6.5-10.1) Neutrophils (%) (Auto) % (45.0-75.0) Lymphocytes (%) (Auto) % (20.0-45.0) Monocytes (%) (Auto) % (1.0-10.0) Eosinophils (%) (Auto) % (0.0-3.0) Basophils (%) (Auto) % (0.0-2.0) Sodium Level 142 mEQ/L (135-145) Potassium Level 4.2 mEQ/L (3.4-4.9) Chloride Level 107 mEQ/L (98-107) Carbon Dioxide Level 18 mEQ/L (20-30) Anion Gap 17 (5-15) Blood Urea Nitrogen 56 mg/dL (7-23) Creatinine 1.0 mg/dL (0.7-1.2) Estimat Glomerular Filtration Rate mL/min (>60) Glucose Level 152 mg/dL (74-106) Calcium Level 7.6 mg/dL (8.6-10.2) Total Bilirubin 0.6 mg/dL (0.0-1.2) Aspartate Amino Transf (AST/SGOT) 75 U/L (5-40) Alanine Aminotransferase (ALT/SGPT) 55 U/L (3-41) Alkaline Phosphatase 117 U/L (40-129) Total Protein 5.8 g/dL (6.6-8.7) Albumin 1.5 g/dL (3.5-5.2) Globulin 4.3 g/dL Albumin/Globulin Ratio 0.3 (1.0-2.7) Vancomycin Level Trough 12.3 ug/mL (5.0-12.0) Test 03/17/17 09:15 03/17/17 10:35 03/18/17 04:00 White Blood Count 8.9 K/UL (4.8-10.8) 8.1 K/UL (4.8-10.8) Red Blood Count 2.86 M/UL (4.70-6.10) 2.95 M/UL (4.70-6.10) Hemoglobin 8.4 G/DL (14.2-18.0) 8.7 G/DL (14.2-18.0) Hematocrit 26.2 % (42.0-52.0) 27.4 % (42.0-52.0) Mean Corpuscular Volume 92 FL (80-99) 93 FL (80-99) Mean Corpuscular Hemoglobin 29.5 PG (27.0-31.0) 29.5 PG (27.0-31.0) Mean Corpuscular Hemoglobin Concent 32.2 G/DL (32.0-36.0) 31.7 G/DL (32.0-36.0) Red Cell Distribution Width 13.7 % (11.6-14.8) 14.3 % (11.6-14.8) Platelet Count 186 K/UL (150-450) 199 K/UL (150-450) Mean Platelet Volume 6.0 FL (6.5-10.1) 6.8 FL (6.5-10.1) Neutrophils (%) (Auto) 80.8 % (45.0-75.0) 78.1 % (45.0-75.0) Lymphocytes (%) (Auto) 11.5 % (20.0-45.0) 12.4 % (20.0-45.0) Monocytes (%) (Auto) 5.8 % (1.0-10.0) 7.6 % (1.0-10.0) Eosinophils (%) (Auto) 1.6 % (0.0-3.0) 1.0 % (0.0-3.0) Basophils (%) (Auto) 0.3 % (0.0-2.0) 0.8 % (0.0-2.0) Sodium Level 141 mEQ/L (135-145) 143 mEQ/L (135-145) Potassium Level 3.9 mEQ/L (3.4-4.9) 4.2 mEQ/L (3.4-4.9) Chloride Level 110 mEQ/L (98-107) 107 mEQ/L (98-107) Carbon Dioxide Level 21 mEQ/L (20-30) 22 mEQ/L (20-30) Anion Gap 10 (5-15) 14 (5-15) Blood Urea Nitrogen 47 mg/dL (7-23) 45 mg/dL (7-23) Creatinine 1.1 mg/dL (0.7-1.2) 0.9 mg/dL (0.7-1.2) Estimat Glomerular Filtration Rate mL/min (>60) mL/min (>60) Glucose Level 191 mg/dL (74-106) 207 mg/dL (74-106) Calcium Level 7.4 mg/dL (8.6-10.2) 8.4 mg/dL (8.6-10.2) Magnesium Level 1.8 mg/dL (1.7-2.5) Total Bilirubin 0.5 mg/dL (0.0-1.2) 0.5 mg/dL (0.0-1.2) Aspartate Amino Transf (AST/SGOT) 35 U/L (5-40) 23 U/L (5-40) Alanine Aminotransferase (ALT/SGPT) 51 U/L (3-41) 38 U/L (3-41) Alkaline Phosphatase 119 U/L (40-129) 184 U/L (40-129) Total Protein 5.6 g/dL (6.6-8.7) 6.0 g/dL (6.6-8.7) Albumin 1.9 g/dL (3.5-5.2) 2.0 g/dL (3.5-5.2) Globulin 3.7 g/dL 4.0 g/dL Albumin/Globulin Ratio 0.5 (1.0-2.7) 0.5 (1.0-2.7) Arterial Blood pH 7.289 (7.350-7.450) Arterial Blood Partial Pressure CO2 46.5 mmHg (35.0-45.0) Arterial Blood Partial Pressure O2 117.3 mmHg (75.0-100.0) Arterial Blood HCO3 21.8 mmol/L (22.0-26.0) Arterial Blood Oxygen Saturation 97.6 % (92.0-98.0) Arterial Blood Base Excess -4.6 Yosvany Test Positive Objective: GENERAL: The patient is sedated on the ventilator NAD HEENT: Oropharynx is moist. Gag present. NECK: Supple. Carotids 2+. LUNGS: Coarse breath sounds and symmetric. No wheezes or rhonchi. CARDIAC: S1 and S2. Regular rate and rhythm. Soft at the parasternal border. No rubs or gallops. ABDOMEN: Soft and nontender. No distention. no HSM; GT EXTREMITIES: No cyanosis. No clubbing. No edema. left heel wound NEUROLOGIC: Grossly nonfocal.sedated reviewed and edited Micro: Microbiology Date/Time Source Procedure Growth Status 03/16/17 20:00 Sputum Gram Stain Pending Resulted 03/16/17 20:00 Sputum Culture - Preliminary Gram Negative Bacillus 1 Resulted Accucheck: 216 REJI OJEDA Mar 18, 2017 09:18
--- NOTE | 2017-03-18 10:08 | Diagnostic Imaging Report ---
Indications: Treatment Technique: Spiral acquisitions obtained through the brain. Angled axial and coronal 5 x 5 mm slices were reconstructed. Total dose length product 1509 mGycm. CTDI vol(s) 70 mGy. Dose reduction achieved using automated exposure control Comparison: 03/03/2017 Findings: Again demonstrated is marked age-related enlargement of ventricles and extra axial CSF spaces and considerable periventricular deep white matter chronic ischemic change. No acute hemorrhage or edema. No mass effect nor midline shift. The included orbits are unremarkable. There is considerable right maxillary sinus opacification. This was also evident previously. There is considerable right mastoid, trace left mastoid opacification. There is slight high parietal scalp soft tissue thickening which was also evident previously. Findings are unchanged Impression: Chronic and age-related changes. Negative for acute intracranial bleed or mass effect. Right maxillary sinus disease Bilateral mastoid disease, also previously described The CT scanner at [facility] is accredited by the [employer] and the scans are performed using protocols designed to limit radiation exposure to as low as reasonably achievable to attain images of sufficient resolution adequate for diagnostic evaluation.
[2017-03-18] MEDS ORDERED: Tubing IV Secondary IV ONE (10:50)
--- NOTE | 2017-03-18 10:58 | Infectious Diseases Prog Note ---
Assessment/Plan Assessment/Plan antibiotics : vancomycin iv, meropenem A 1. fungal UTI 2. gram negative pneumonia 3. septic shock 4. respiratory failure 5. leucocytosis resolved 6. DM P 1. continue vancomycin iv, meropenem 2. continue fluconazole 5 more days 3. will follwo up cultures Subjective ROS Limited/Unobtainable: Yes Allergies: Coded Allergies: No Known Allergies (Unverified , 01/07/17) Objective Vital Signs Last 24 Hour Vital Signs Date Time Temp Pulse Resp B/P Pulse Ox O2 Delivery O2 Flow Rate FiO2 03/18/17 10:39 81 26 30 03/18/17 10:00 99.3 86 27 137/53 96 Mechanical Ventilator 30 03/18/17 09:49 99.3 03/18/17 09:01 90 26 30 03/18/17 09:00 87 28 146/62 98 Mechanical Ventilator 30 03/18/17 08:00 30 03/18/17 08:00 94 03/18/17 08:00 99.6 90 20 142/57 100 Mechanical Ventilator 30 03/18/17 07:00 87 18 144/54 99 Mechanical Ventilator 30 03/18/17 06:47 91 30 30 03/18/17 06:00 77 18 159/87 100 Mechanical Ventilator 30 03/18/17 05:09 86 28 30 03/18/17 05:00 77 20 167/87 100 Mechanical Ventilator 30 03/18/17 04:00 30 03/18/17 04:00 95 03/18/17 04:00 97.9 84 23 150/80 100 Mechanical Ventilator 30 03/18/17 03:23 89 27 30 03/18/17 03:00 83 22 147/84 100 Mechanical Ventilator 30 03/18/17 02:00 84 22 125/56 100 Mechanical Ventilator 30 03/18/17 01:25 87 30 30 03/18/17 01:00 86 25 130/58 100 Mechanical Ventilator 30 03/18/17 00:00 86 03/18/17 00:00 97.8 85 24 111/49 100 Mechanical Ventilator 30 03/18/17 00:00 30 03/17/17 23:29 88 30 30 03/17/17 23:00 88 25 126/53 100 Mechanical Ventilator 30 03/17/17 22:15 123/62 03/17/17 22:00 79 25 123/62 100 Mechanical Ventilator 30 03/17/17 21:20 82 24 30 03/17/17 21:00 87 26 134/55 100 Mechanical Ventilator 30 03/17/17 21:00 30 03/17/17 20:00 84 03/17/17 20:00 98.0 85 26 136/61 100 Mechanical Ventilator 30 03/17/17 19:16 86 27 30 03/17/17 19:00 84 24 126/60 100 Mechanical Ventilator 30 03/17/17 18:00 85 24 126/59 100 Mechanical Ventilator 30 03/17/17 17:00 88 26 128/60 100 Mechanical Ventilator 30 03/17/17 16:51 77 22 35 03/17/17 16:00 99.0 82 26 106/53 100 Mechanical Ventilator 30 03/17/17 16:00 85 03/17/17 16:00 30 03/17/17 15:00 84 26 118/57 100 Mechanical Ventilator 30 03/17/17 14:53 85 24 35 03/17/17 14:00 99.5 88 26 111/52 100 Mechanical Ventilator 30 03/17/17 13:00 99.7 90 27 112/53 100 Mechanical Ventilator 30 03/17/17 12:52 85 27 35 03/17/17 12:00 35 03/17/17 12:00 87 03/17/17 12:00 100.1 92 27 121/56 100 Mechanical Ventilator 35 03/17/17 11:00 93 28 35 03/17/17 11:00 90 30 130/61 100 Mechanical Ventilator 35 Height (Feet): 6 Weight (Pounds): 182 HEENT: other - intubated Respiratory/Chest: lungs clear Cardiovascular: normal rate, regular rhythm, no gallop/murmur Abdomen: soft, non tender, other - GT Extremities: other - + edema bilaterally, right arm PICC Microbiology Date/Time Source Procedure Growth Status 03/16/17 20:00 Sputum Gram Stain Pending Resulted 03/16/17 20:00 Sputum Culture - Preliminary Gram Negative Bacillus 1 Resulted Laboratory Tests Test 03/18/17 04:00 White Blood Count 8.1 K/UL (4.8-10.8) Red Blood Count 2.95 M/UL (4.70-6.10) L Hemoglobin 8.7 G/DL (14.2-18.0) L Hematocrit 27.4 % (42.0-52.0) L Mean Corpuscular Volume 93 FL (80-99) Mean Corpuscular Hemoglobin 29.5 PG (27.0-31.0) Mean Corpuscular Hemoglobin Concent 31.7 G/DL (32.0-36.0) L Red Cell Distribution Width 14.3 % (11.6-14.8) Platelet Count 199 K/UL (150-450) Mean Platelet Volume 6.8 FL (6.5-10.1) Neutrophils (%) (Auto) 78.1 % (45.0-75.0) H Lymphocytes (%) (Auto) 12.4 % (20.0-45.0) L Monocytes (%) (Auto) 7.6 % (1.0-10.0) Eosinophils (%) (Auto) 1.0 % (0.0-3.0) Basophils (%) (Auto) 0.8 % (0.0-2.0) Sodium Level 143 mEQ/L (135-145) Potassium Level 4.2 mEQ/L (3.4-4.9) Chloride Level 107 mEQ/L (98-107) Carbon Dioxide Level 22 mEQ/L (20-30) Anion Gap 14 (5-15) Blood Urea Nitrogen 45 mg/dL (7-23) H Creatinine 0.9 mg/dL (0.7-1.2) Estimat Glomerular Filtration Rate mL/min (>60) Glucose Level 207 mg/dL (74-106) H Calcium Level 8.4 mg/dL (8.6-10.2) L Total Bilirubin 0.5 mg/dL (0.0-1.2) Aspartate Amino Transf (AST/SGOT) 23 U/L (5-40) Alanine Aminotransferase (ALT/SGPT) 38 U/L (3-41) Alkaline Phosphatase 184 U/L (40-129) H Total Protein 6.0 g/dL (6.6-8.7) L Albumin 2.0 g/dL (3.5-5.2) L Globulin 4.0 g/dL Albumin/Globulin Ratio 0.5 (1.0-2.7) L VINICIO VAUGHAN Mar 18, 2017 10:58
[2017-03-18 15:09] LABS: ABG ALLEN TEST POSITIVE; ABG BASE EXCESS -3.7; ABG PCO2 45.7 mmHg (35.0-45.0)
--- NOTE | 2017-03-18 16:27 | Cardiology Report ---
APPROVED REPORT EKG Measurement Heart [id number] Normal sinus rhythm Abnormal ECG
[2017-03-18] MEDS: Vancomycin 1gm/D5W 275ml IVPB SCH ×2 (20:41)
[2017-03-18] MEDS: Dyna-Hex 2% Top Sol 8oz TOPIC SCH (20:41)
[2017-03-18] MEDS: Docusate 100mg/10ml Liq GT PRN (20:46)
--- NOTE | 2017-03-18 21:40 | Progress Note ---
DATE: 03/16/2017 CARDIOLOGY PROGRESS NOTE CRITICAL CARE: SUBJECTIVE: The patient remains in the intensive care unit. He is orally intubated and mechanically ventilated. Weaning has not been initiated. The patient remains with tenuous blood pressure parameters. Monitor reveals atrial fibrillation, rate controlled, and episodes of pacing. OBJECTIVE: VITAL SIGNS: Blood pressure is 97/42, pulse 80, and respiratory rate 18. CHEST: Bilateral breath sounds with rhonchi. HEART: Irregularly irregular rhythm. Normal S1 and S2. ABDOMEN: Soft. EXTREMITIES: No edema. LABORATORY DATA: White count is 8.7 and hemoglobin 9.1. Lactic acid is 1.1. Sodium is 142, potassium 4.2, bicarbonate 18, BUN 56, and creatinine 1.0. Albumin is 1.5. IMPRESSION: 1. Septic shock. 2. Respiratory failure. 3. Lactic acidosis, recovered. 4. Metabolic acidosis. 5. Acute renal failure with prerenal azotemia. 6. Severe protein-calorie malnutrition. 7. Acute on chronic diastolic congestive heart failure. 8. Paroxysmal atrial fibrillation now with controlled ventricular response. 9. Pacemaker with stable function. PLAN: 1. Taper pressors. 2. Continue broad-spectrum antibiotics. 3. Nutrition by feeding tube. Weaning as able from ventilator support. 4. Transfuse for hemoglobin less than 8 grams. 5. Remains critical and guarded. Stanislav Jain M.D. DR: Anh JOB#: [id number] CC:
--- NOTE | 2017-03-18 21:40 | Progress Note ---
DATE: 03/17/2017 CARDIOLOGY PROGRESS NOTE: SUBJECTIVE: Condition remains critical. Prognosis remains guarded. The patient remains in the intensive care unit on full ventilator support. Monitored rhythm, atrial fibrillation with ventricular pacing. Blood pressure is stabilized and pressors now being tapered off completely. T-max is 99.1 degrees. OBJECTIVE: VITAL SIGNS: Blood pressure is 118/53, pulse rate 84, and respiratory rate 22. LUNGS: Bilateral breath sounds. Scattered rhonchi. HEART: Irregularly irregular. Normal S1 and S2, 1/6 systolic apical murmur. ABDOMEN: Soft. EXTREMITIES: With trace edema. LABORATORY DATA: Urine culture, yeast. White count is 8.9 and hemoglobin 8.4. Sodium is 141, potassium 3.9, bicarbonate 21, BUN 47, and creatinine 1.1. Magnesium is 1.8. Albumin is 1.9. ABG, pH 7.29, pCO2 46, and pO2 117. IMPRESSION: 1. Acute respiratory acidosis. 2. Metabolic acidosis. 3. Recovered lactic acidosis. 4. Acute myocardial ischemia. 5. Acute on chronic diastolic congestive heart failure. 6. Paroxysmal atrial fibrillation. 7. Permanent pacemaker. 8. Sepsis shock. 9. Wound infection. 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 11. Respiratory failure. 12. Severe protein-calorie malnutrition. 13. Critical and guarded. PLAN: 1. Antimicrobials, per Infectious Disease literacy consultant. 2. Wean off pressors completely. 3. Volume support. 4. Wean off ventilator as able. 5. Deep venous thrombosis and stress ulcer prophylaxis. 6. Continue digitalis for rate control. Stanislav Jain M.D. DR: Anh JOB#: [id number] CC:
[2017-03-19] VITALS (24 sets, daily range): BP systolic 118–168; BP diastolic 48–72
[2017-03-19] MEDS: NovoLOG Insulin Flexpen SUBQ SCH ×5 (00:02→23:38)
[2017-03-19] MEDS: Meropenem 1 GM in NS 110 ML IVPB SCH ×3 (01:03→16:59)
[2017-03-19 04:23] LABS: MEAN CORPUSCULAR HEMOGLOBIN 29.4 PG (27.0-31.0); MEAN CORPUSCULAR HGB CONC 31.7 G/DL (32.0-36.0); MEAN CORPUSCULAR VOLUME 93 FL (80-99); MEAN PLATELET VOLUME 6.7 FL (6.5-10.1); PLATELET COUNT 198 K/UL (150-450); RED CELL DISTRIBUTION WIDTH 14.3 % (11.6-14.8)
[2017-03-19 04:45] LABS: ALANINE AMINOTRANSFERASE 26 U/L (3-41); ALBUMIN/GLOBULIN RATIO 0.4 (1.0-2.7); ANION GAP 10 (5-15); ASPARTATE AMINO TRANSFERASE 14 U/L (5-40); CALCIUM 8.2 mg/dL (8.6-10.2); CARBON DIOXIDE 24 mEQ/L (20-30); CHLORIDE 111 mEQ/L (98-107); CREATININE 0.7 mg/dL (0.7-1.2); HEMOLYSIS 0; POTASSIUM 4.2 mEQ/L (3.4-4.9); SODIUM 145 mEQ/L (135-145); TOTAL PROTEIN 5.6 g/dL (6.6-8.7)
[2017-03-19 08:14] LABS: MAGNESIUM 1.4 mg/dL (1.7-2.5); PHOSPHORUS 1.2 mg/dL (2.5-4.8)
--- NOTE | 2017-03-19 08:14 | Critical Care Progress Note ---
Assessment/Plan Assessment/Plan 1. Respiratory failure 2. Chronic renal failure. 3. Anemia. 4. Leukocytosis 5. Unstageable left heel ulcer, chronic with Kleb 6. Acute on chronic encephalopathy. 7. Gastrostomy tube 8. Aspiration. 9. Paroxysmal atrial fibrillation. 10. Permanent pacemaker. 11. History of Klebsiella urinary tract infection. 12. Failure to thrive 13. Hypertension. 14. Diabetes mellitus. 15. lactic acidosis PLAN care noted and reviewed IV antibiotics noted- Ertapenam Lasix with caution respiratory care as outlined wean as able off the ventilator Ventilatory care noted SNF meds supportive care as outlined suction as needed nutrition tolerated with tube feeds; has GT oxygen therapy and titrate prognosis guarded hope to avoid trach will need to d/w family medications/laboratory data/nursing notes/ICU care reviewed in detail note reviewed and edited care discussed with RN and RT ICU time spent 38 minutes Critical Care - Subjective Interval Events: still unable to wean HH reduced care noted remains critical ROS Limited/Unobtainable: Yes Condition: critical EKG Rhythm: Sinus Rhythm Residuals: minimal Tube Feeding Tolerated: yes I&O: Intake and Output 03/18/17 03/19/17 19:00 07:00 Intake Total 1570 ml 1685 ml Output Total 1175 ml 1080 ml Balance 395 ml 605 ml Intake Free Water 150 ml 150 ml IV Total 720 ml 935 ml Tube Feeding 600 ml 600 ml Other 100 ml Output Urine Total 1175 ml 1080 ml Critical Care - Objective ET-Tube: 8.0 ET Position: 24 Last 24 Hour Vital Signs Date Time Temp Pulse Resp B/P Pulse Ox O2 Delivery O2 Flow Rate FiO2 03/19/17 07:00 84 21 168/71 99 Mechanical Ventilator 03/19/17 06:55 79 21 30 03/19/17 06:00 76 24 150/63 99 Mechanical Ventilator 03/19/17 05:07 84 25 30 03/19/17 05:00 77 24 161/70 99 Mechanical Ventilator 03/19/17 04:00 73 03/19/17 04:00 30 03/19/17 04:00 98.7 81 23 132/57 100 Mechanical Ventilator 03/19/17 03:25 80 24 30 03/19/17 03:00 71 23 127/50 100 Mechanical Ventilator 03/19/17 02:00 72 20 123/48 100 Mechanical Ventilator 03/19/17 01:30 84 26 30 7/13/17 01:00 75 22 143/58 100 Mechanical Ventilator 30 03/19/17 00:00 99.0 80 21 152/63 100 Mechanical Ventilator 30 03/19/17 00:00 78 03/19/17 00:00 30 03/18/17 23:28 79 22 30 03/18/17 23:00 78 20 144/66 100 Mechanical Ventilator 30 03/18/17 22:15 159/75 03/18/17 22:00 87 20 159/75 100 Mechanical Ventilator 30 03/18/17 21:25 84 22 30 03/18/17 21:00 84 21 161/79 100 Mechanical Ventilator 30 03/18/17 20:00 98.4 79 21 146/66 100 Mechanical Ventilator 30 03/18/17 20:00 90 03/18/17 19:30 30 03/18/17 19:30 87 27 Mechanical Ventilator 30 03/18/17 19:30 87 23 30 03/18/17 19:00 83 22 150/64 100 Mechanical Ventilator 30 03/18/17 18:00 81 24 138/65 100 Mechanical Ventilator 30 03/18/17 17:22 86 27 30 03/18/17 17:00 88 25 141/56 98 Mechanical Ventilator 30 03/18/17 16:00 86 03/18/17 16:00 30 03/18/17 16:00 97.9 84 28 135/51 98 Mechanical Ventilator 30 03/18/17 15:00 80 25 127/56 99 Mechanical Ventilator 30 03/18/17 14:57 87 24 30 03/18/17 14:00 83 25 142/64 100 Mechanical Ventilator 30 03/18/17 13:14 84 24 30 03/18/17 13:00 84 25 144/62 100 Mechanical Ventilator 30 03/18/17 12:00 82 03/18/17 12:00 30 03/18/17 12:00 98.7 80 27 137/65 99 Mechanical Ventilator 30 03/18/17 11:00 82 25 127/54 99 Mechanical Ventilator 30 03/18/17 10:39 81 26 30 03/18/17 10:00 99.3 86 27 137/53 96 Mechanical Ventilator 30 03/18/17 09:49 99.3 03/18/17 09:01 90 26 30 03/18/17 09:00 30 03/18/17 09:00 87 28 146/62 98 Mechanical Ventilator 30 Labs: Labs Test 03/16/17 20:00 03/17/17 09:15 03/17/17 10:35 03/18/17 04:00 Vancomycin Level Trough 12.3 ug/mL (5.0-12.0) White Blood Count 8.9 K/UL (4.8-10.8) 8.1 K/UL (4.8-10.8) Red Blood Count 2.86 M/UL (4.70-6.10) 2.95 M/UL (4.70-6.10) Hemoglobin 8.4 G/DL (14.2-18.0) 8.7 G/DL (14.2-18.0) Hematocrit 26.2 % (42.0-52.0) 27.4 % (42.0-52.0) Mean Corpuscular Volume 92 FL (80-99) 93 FL (80-99) Mean Corpuscular Hemoglobin 29.5 PG (27.0-31.0) 29.5 PG (27.0-31.0) Mean Corpuscular Hemoglobin Concent 32.2 G/DL (32.0-36.0) 31.7 G/DL (32.0-36.0) Red Cell Distribution Width 13.7 % (11.6-14.8) 14.3 % (11.6-14.8) Platelet Count 186 K/UL (150-450) 199 K/UL (150-450) Mean Platelet Volume 6.0 FL (6.5-10.1) 6.8 FL (6.5-10.1) Neutrophils (%) (Auto) 80.8 % (45.0-75.0) 78.1 % (45.0-75.0) Lymphocytes (%) (Auto) 11.5 % (20.0-45.0) 12.4 % (20.0-45.0) Monocytes (%) (Auto) 5.8 % (1.0-10.0) 7.6 % (1.0-10.0) Eosinophils (%) (Auto) 1.6 % (0.0-3.0) 1.0 % (0.0-3.0) Basophils (%) (Auto) 0.3 % (0.0-2.0) 0.8 % (0.0-2.0) Sodium Level 141 mEQ/L (135-145) 143 mEQ/L (135-145) Potassium Level 3.9 mEQ/L (3.4-4.9) 4.2 mEQ/L (3.4-4.9) Chloride Level 110 mEQ/L (98-107) 107 mEQ/L (98-107) Carbon Dioxide Level 21 mEQ/L (20-30) 22 mEQ/L (20-30) Anion Gap 10 (5-15) 14 (5-15) Blood Urea Nitrogen 47 mg/dL (7-23) 45 mg/dL (7-23) Creatinine 1.1 mg/dL (0.7-1.2) 0.9 mg/dL (0.7-1.2) Estimat Glomerular Filtration Rate mL/min (>60) mL/min (>60) Glucose Level 191 mg/dL (74-106) 207 mg/dL (74-106) Calcium Level 7.4 mg/dL (8.6-10.2) 8.4 mg/dL (8.6-10.2) Magnesium Level 1.8 mg/dL (1.7-2.5) Total Bilirubin 0.5 mg/dL (0.0-1.2) 0.5 mg/dL (0.0-1.2) Aspartate Amino Transf (AST/SGOT) 35 U/L (5-40) 23 U/L (5-40) Alanine Aminotransferase (ALT/SGPT) 51 U/L (3-41) 38 U/L (3-41) Alkaline Phosphatase 119 U/L (40-129) 184 U/L (40-129) Total Protein 5.6 g/dL (6.6-8.7) 6.0 g/dL (6.6-8.7) Albumin 1.9 g/dL (3.5-5.2) 2.0 g/dL (3.5-5.2) Globulin 3.7 g/dL 4.0 g/dL Albumin/Globulin Ratio 0.5 (1.0-2.7) 0.5 (1.0-2.7) Arterial Blood pH 7.289 (7.350-7.450) Arterial Blood Partial Pressure CO2 46.5 mmHg (35.0-45.0) Arterial Blood Partial Pressure O2 117.3 mmHg (75.0-100.0) Arterial Blood HCO3 21.8 mmol/L (22.0-26.0) Arterial Blood Oxygen Saturation 97.6 % (92.0-98.0) Arterial Blood Base Excess -4.6 Yosvany Test Positive Test 03/18/17 13:12 03/19/17 04:00 Arterial Blood pH 7.300 (7.350-7.450) Arterial Blood Partial Pressure CO2 45.7 mmHg (35.0-45.0) Arterial Blood Partial Pressure O2 105.6 mmHg (75.0-100.0) Arterial Blood HCO3 22.4 mmol/L (22.0-26.0) Arterial Blood Oxygen Saturation 97.3 % (92.0-98.0) Arterial Blood Base Excess -3.7 Yosvany Test Positive White Blood Count 7.0 K/UL (4.8-10.8) Red Blood Count 2.70 M/UL (4.70-6.10) Hemoglobin 7.9 G/DL (14.2-18.0) Hematocrit 25.1 % (42.0-52.0) Mean Corpuscular Volume 93 FL (80-99) Mean Corpuscular Hemoglobin 29.4 PG (27.0-31.0) Mean Corpuscular Hemoglobin Concent 31.7 G/DL (32.0-36.0) Red Cell Distribution Width 14.3 % (11.6-14.8) Platelet Count 198 K/UL (150-450) Mean Platelet Volume 6.7 FL (6.5-10.1) Neutrophils (%) (Auto) % (45.0-75.0) Lymphocytes (%) (Auto) % (20.0-45.0) Monocytes (%) (Auto) % (1.0-10.0) Eosinophils (%) (Auto) % (0.0-3.0) Basophils (%) (Auto) % (0.0-2.0) Sodium Level 145 mEQ/L (135-145) Potassium Level 4.2 mEQ/L (3.4-4.9) Chloride Level 111 mEQ/L (98-107) Carbon Dioxide Level 24 mEQ/L (20-30) Anion Gap 10 (5-15) Blood Urea Nitrogen 43 mg/dL (7-23) Creatinine 0.7 mg/dL (0.7-1.2) Estimat Glomerular Filtration Rate mL/min (>60) Glucose Level 211 mg/dL (74-106) Calcium Level 8.2 mg/dL (8.6-10.2) Total Bilirubin 0.4 mg/dL (0.0-1.2) Aspartate Amino Transf (AST/SGOT) 14 U/L (5-40) Alanine Aminotransferase (ALT/SGPT) 26 U/L (3-41) Alkaline Phosphatase 125 U/L (40-129) Total Protein 5.6 g/dL (6.6-8.7) Albumin 1.6 g/dL (3.5-5.2) Globulin 4.0 g/dL Albumin/Globulin Ratio 0.4 (1.0-2.7) Objective: GENERAL: The patient is sedated on the ventilator NAD HEENT: Oropharynx is moist. Gag present. NECK: Supple. Carotids 2+. LUNGS: Coarse breath sounds and symmetric. No wheezes or rhonchi. CARDIAC: S1 and S2. Regular rate and rhythm. Soft at the parasternal border. No rubs or gallops. ABDOMEN: Soft and nontender. No distention. no HSM; GT EXTREMITIES: No cyanosis. No clubbing. No edema. left heel wound NEUROLOGIC: Grossly nonfocal.sedated reviewed and edited Micro: Microbiology Date/Time Source Procedure Growth Status 03/16/17 20:00 Sputum Gram Stain Pending Resulted 03/16/17 20:00 Sputum Culture - Preliminary Klebsiella Pneumoniae Gram Negative Bacillus 2 Resulted Accucheck: 200 REJI OJEDA Mar 19, 2017 08:14
--- NOTE | 2017-03-19 09:42 | Diagnostic Imaging Report ---
Indications: Shortness of breath Technique: Portable AP chest Findings: Comparison: 03/15/2017 Pulmonary inflation has improved. Diffuse bilateral mixed interstitial and alveolar lung opacities are substantially unchanged. Cardiac silhouette remains normal in size. Pulmonary vasculature remains obscured. No definite pleural abnormality demonstrated. PICC has been placed via right upper extremity, tip at level of SVC-right atrial junction. Endotracheal tube remains in place. IMPRESSION: Stable bilateral pulmonary infiltrates, nonspecific Interval PICC placement, adequately positioned
[2017-03-19] MEDS: Tamsulosin 0.4mg cap GT SCH (09:54)
[2017-03-19] MEDS: Ferrous Sulfate 300 MG/5 ML UDC GT SCH (09:54)
[2017-03-19] MEDS: Fluconazole 100mg tab ORAL SCH (09:55)
[2017-03-19] MEDS: sitaGLIPtin 25mg tab GT SCH (09:55)
[2017-03-19] MEDS: Ascorbic Acid 500mg tab GT SCH (09:55)
[2017-03-19] MEDS: Heparin 5000 units/ml inj SUBQ SCH ×2 (10:04→20:55)
--- NOTE | 2017-03-19 11:53 | Infectious Diseases Prog Note ---
Assessment/Plan Assessment/Plan A 1. fungal UTI 2. MDR Klebsiella, gram negative pneumonia 3. septic shock resolved 4. respiratory failure 5. leucocytosis resolved 6. DM P 1. discontinue vancomycin iv, 2. continue fluconazole 4 more days 3. Continue Meropenem, Add Bactrim Subjective ROS Limited/Unobtainable: Yes Neurologic: Reports: other - unconcious can not be weaned from ventilator Allergies: Coded Allergies: No Known Allergies (Unverified , 01/07/17) Objective Vital Signs Last 24 Hour Vital Signs Date Time Temp Pulse Resp B/P Pulse Ox O2 Delivery O2 Flow Rate FiO2 03/19/17 10:30 80 25 30 03/19/17 09:00 99 03/19/17 08:59 79 26 30 03/19/17 07:00 84 21 168/71 99 Mechanical Ventilator 30 03/19/17 06:55 79 21 30 03/19/17 06:00 76 24 150/63 99 Mechanical Ventilator 30 03/19/17 05:07 84 25 30 03/19/17 05:00 77 24 161/70 99 Mechanical Ventilator 30 03/19/17 04:00 73 03/19/17 04:00 30 03/19/17 04:00 98.7 81 23 132/57 100 Mechanical Ventilator 30 03/19/17 03:25 80 24 30 03/19/17 03:00 71 23 127/50 100 Mechanical Ventilator 30 03/19/17 02:00 72 20 123/48 100 Mechanical Ventilator 30 03/19/17 01:30 84 26 30 03/19/17 01:00 75 22 143/58 100 Mechanical Ventilator 30 03/19/17 00:00 99.0 80 21 152/63 100 Mechanical Ventilator 30 03/19/17 00:00 78 03/19/17 00:00 30 03/18/17 23:28 79 22 30 03/18/17 23:00 78 20 144/66 100 Mechanical Ventilator 30 03/18/17 22:15 159/75 03/18/17 22:00 87 20 159/75 100 Mechanical Ventilator 30 03/18/17 21:25 84 22 30 03/18/17 21:00 84 21 161/79 100 Mechanical Ventilator 30 03/18/17 20:00 98.4 79 21 146/66 100 Mechanical Ventilator 30 03/18/17 20:00 90 7/12/17 19:30 30 03/18/17 19:30 87 27 Mechanical Ventilator 30 03/18/17 19:30 87 23 30 03/18/17 19:00 83 22 150/64 100 Mechanical Ventilator 30 03/18/17 18:00 81 24 138/65 100 Mechanical Ventilator 30 03/18/17 17:22 86 27 30 03/18/17 17:00 88 25 141/56 98 Mechanical Ventilator 30 03/18/17 16:00 86 03/18/17 16:00 30 03/18/17 16:00 97.9 84 28 135/51 98 Mechanical Ventilator 30 03/18/17 15:00 80 25 127/56 99 Mechanical Ventilator 30 03/18/17 14:57 87 24 30 03/18/17 14:00 83 25 142/64 100 Mechanical Ventilator 30 03/18/17 13:14 84 24 30 03/18/17 13:00 84 25 144/62 100 Mechanical Ventilator 30 03/18/17 12:00 82 03/18/17 12:00 30 03/18/17 12:00 98.7 80 27 137/65 99 Mechanical Ventilator 30 Height (Feet): 6 Weight (Pounds): 185 General Appearance: no acute distress HEENT: other - orally intubated Respiratory/Chest: lungs clear, other - on ventilator Cardiovascular: normal rate Abdomen: soft, non tender - GT feeding Extremities: other - mild edema, right arm PICC line Microbiology Date/Time Source Procedure Growth Status 03/18/17 20:30 Sputum Gram Stain - Final Resulted 03/18/17 20:30 Sputum Sputum Culture Pending Resulted 03/16/17 20:00 Sputum Gram Stain Pending Resulted 03/16/17 20:00 Sputum Culture - Preliminary Klebsiella Pneumoniae Gram Negative Bacillus 2 Resulted Laboratory Tests Test 03/18/17 13:12 03/19/17 04:00 Arterial Blood pH 7.300 (7.350-7.450) Arterial Blood Partial Pressure CO2 45.7 mmHg (35.0-45.0) H Arterial Blood Partial Pressure O2 105.6 mmHg (75.0-100.0) H Arterial Blood HCO3 22.4 mmol/L (22.0-26.0) Arterial Blood Oxygen Saturation 97.3 % (92.0-98.0) Arterial Blood Base Excess -3.7 Yosvany Test Positive White Blood Count 7.0 K/UL (4.8-10.8) Red Blood Count 2.70 M/UL (4.70-6.10) L Hemoglobin 7.9 G/DL (14.2-18.0) L Hematocrit 25.1 % (42.0-52.0) L Mean Corpuscular Volume 93 FL (80-99) Mean Corpuscular Hemoglobin 29.4 PG (27.0-31.0) Mean Corpuscular Hemoglobin Concent 31.7 G/DL (32.0-36.0) L Red Cell Distribution Width 14.3 % (11.6-14.8) Platelet Count 198 K/UL (150-450) Mean Platelet Volume 6.7 FL (6.5-10.1) Neutrophils (%) (Auto) % (45.0-75.0) Lymphocytes (%) (Auto) % (20.0-45.0) Monocytes (%) (Auto) % (1.0-10.0) Eosinophils (%) (Auto) % (0.0-3.0) Basophils (%) (Auto) % (0.0-2.0) Sodium Level 145 mEQ/L (135-145) Potassium Level 4.2 mEQ/L (3.4-4.9) Chloride Level 111 mEQ/L (98-107) H Carbon Dioxide Level 24 mEQ/L (20-30) Anion Gap 10 (5-15) Blood Urea Nitrogen 43 mg/dL (7-23) H Creatinine 0.7 mg/dL (0.7-1.2) Estimat Glomerular Filtration Rate mL/min (>60) Glucose Level 211 mg/dL (74-106) H Calcium Level 8.2 mg/dL (8.6-10.2) L Phosphorus Level 1.2 mg/dL (2.5-4.8) L Magnesium Level 1.4 mg/dL (1.7-2.5) L Total Bilirubin 0.4 mg/dL (0.0-1.2) Aspartate Amino Transf (AST/SGOT) 14 U/L (5-40) Alanine Aminotransferase (ALT/SGPT) 26 U/L (3-41) Alkaline Phosphatase 125 U/L (40-129) Lactate Dehydrogenase Pending Total Protein 5.6 g/dL (6.6-8.7) L Albumin 1.6 g/dL (3.5-5.2) L Globulin 4.0 g/dL Albumin/Globulin Ratio 0.4 (1.0-2.7) L Current Medications Medications (Trade) Dose Ordered Sig/Subhash Route PRN Reason Start Time Stop Time Status Last Admin Dose Admin Acetaminophen 650 mg 650 mg Q4H PRN ORAL Mild Pain/Temp > 100.5 03/13/17 21:15 04/12/17 21:14 03/19/17 09:54 Al Hydroxide/Mg Hydroxide (Mylanta) 30 ml EVERY 4 HOURS PRN GT heartburn 03/14/17 01:00 04/13/17 00:59 Ascorbic Acid 500 mg 500 mg DAILY GT 03/16/17 11:05 04/14/17 08:59 03/19/17 09:55 Atorvastatin Calcium (Lipitor) 10 mg BEDTIME GT 03/14/17 21:00 04/13/17 20:59 03/18/17 20:41 Chlorhexidine Gluconate (Laura-Hex 2%) 1 applic QHS TOPIC 03/15/17 21:00 04/14/17 20:59 03/18/17 20:41 Dextrose (Dextrose 50%) STAT PRN IV Hypoglycemia 03/13/17 19:45 04/12/17 19:44 Docusate Sodium (Colace) 250 mg BEDTIME PRN GT Constipation 03/14/17 01:45 04/13/17 01:44 03/18/17 20:46 Ferrous Sulfate (Feosol) 325 mg DAILY GT 03/14/17 09:00 04/13/17 08:59 03/19/17 09:54 Finasteride (Proscar) 5 mg DAILY GT 03/14/17 09:00 04/13/17 08:59 03/19/17 09:54 Fluconazole (Diflucan) 100 mg DAILY ORAL 03/17/17 13:00 03/24/17 12:59 03/19/17 09:55 Heparin Sodium (Porcine) (Heparin 5000 units/ml) 5,000 units EVERY 12 HOURS SUBQ 03/14/17 09:00 04/13/17 08:59 03/19/17 10:04 Insulin Aspart EVERY 6 HOURS SUBQ 03/14/17 06:00 04/13/17 05:59 03/19/17 05:51 Lansoprazole (Prevacid) 30 mg DAILY GT 03/14/17 09:00 04/13/17 08:59 03/19/17 09:55 Lorazepam (Ativan 2mg/ml 1ml) 1 mg Q4H PRN IV For Anxiety 03/16/17 09:00 03/23/17 08:59 03/19/17 09:56 Magnesium Hydroxide (Mom) 30 ml DAILYPRN PRN ORAL Constipation 03/18/17 08:30 04/17/17 08:29 Meropenem 1 gm/ Sodium Chloride 110 ml @ 220 mls/hr Q8HR@0100,0900,1700 IVPB 03/16/17 17:00 03/21/17 16:59 03/19/17 09:00 Norepinephrine Bitartrate/ Dextrose (Levophed/D5W) 250 ml @ 0 mls/hr Q24H IV 03/13/17 22:15 04/12/17 22:14 03/16/17 08:21 Sitagliptin Phosphate (Januvia) 50 mg DAILY GT 03/14/17 09:00 04/13/17 08:59 03/19/17 09:55 Sodium Chloride (Sodium Chloride 1000ml bag) 1,000 ml @ 50 mls/hr Q20H IV 03/17/17 09:00 04/16/17 08:59 03/18/17 23:05 Tamsulosin HCl (Flomax) 0.4 mg DAILY GT 03/14/17 09:00 04/13/17 08:59 03/19/17 09:54 Vancomycin HCl (Vanco rx to dose) 1 ea DAILY PRN MISC Per rx protocol 03/14/17 01:00 03/20/17 00:59 Vancomycin HCl/ Dextrose (Vancomycin/D5W) 275 ml @ 183.708 mls/hr Q24H IVPB 03/14/17 21:00 03/23/17 20:59 03/18/17 20:41 Zolpidem Tartrate (Ambien) 5 mg HSPRN PRN GT Insomnia 03/14/17 01:00 04/13/17 00:59 ABDOULAYE ALFONSO Mar 19, 2017 11:53
[2017-03-19] MEDS: Bactrim Susp 20ml PEG SCH ×2 (12:00→20:54)
[2017-03-19 12:10] LABS: ABG BASE EXCESS 0.1; ABG PCO2 35.9 mmHg (35.0-45.0)
[2017-03-19 12:11] LABS: ABG ALLEN TEST POSITIVE
--- NOTE | 2017-03-19 14:41 | General Progress Note ---
Assessment/Plan Problem List: (1) Shock ICD Codes: R57.9 - Shock, unspecified SNOMED: 89813829 (2) toxic metabo (3) toxic metabolic encephalopathy 2/2 infecion/metabolc derangement (4) Respiratory failure ICD Codes: J96.90 - Respiratory failure, unspecified, unspecified whether with hypoxia or hypercapnia SNOMED: 525743497 Qualifiers: Qualified Codes: J96.01 - Acute respiratory failure with hypoxia (5) Renal insufficiency ICD Codes: N28.9 - Disorder of kidney and ureter, unspecified SNOMED: 781661559, 349704092 (6) UTI (urinary tract infection) ICD Codes: N39.0 - Urinary tract infection, site not specified SNOMED: 51726630 Qualifiers: Qualified Codes: T83.511A - Infection and inflammatory reaction due to indwelling urethral catheter, initial encounter; N39.0 - Urinary tract infection , site not specified (7) Pneumonia ICD Codes: J18.9 - Pneumonia, unspecified organism SNOMED: 209008452 Qualifiers: Qualified Codes: J18.9 - Pneumonia, unspecified organism (8) Severe sepsis ICD Codes: A41.9 - Sepsis, unspecified organism; R65.20 - Severe sepsis without septic shock SNOMED: 51135420 Status: stable, progressing Assessment/Plan iv abx follow up cultures wean vent monitor labs laxatives critical and guarded Subjective ROS Limited/Unobtainable: Yes Constitutional: Reports: malaise, weakness HEENT: Reports: no symptoms Cardiovascular: Reports: no symptoms Respiratory: Reports: shortness of breath Gastrointestinal/Abdominal: Reports: difficulty swallowing Genitourinary: Reports: no symptoms Neurologic/Psychiatric: Reports: pre-existing deficit Endocrine: Reports: no symptoms Hematologic/Lymphatic: Reports: anemia Allergies: Coded Allergies: No Known Allergies (Unverified , 01/07/17) All Systems: reviewed and negative except above Subjective no overnight events. tolerated cpap yesterday. less secretions. still sleepy. head ct negative. on the vent. off pressors. Objective Last 24 Hour Vital Signs Date Time Temp Pulse Resp B/P Pulse Ox O2 Delivery O2 Flow Rate FiO2 03/19/17 14:00 71 22 137/71 98 Mechanical Ventilator 30 03/19/17 13:00 69 22 141/69 98 Mechanical Ventilator 30 7/13/17 12:55 73 25 30 03/19/17 12:00 97.7 70 22 137/66 98 Mechanical Ventilator 30 03/19/17 12:00 89 03/19/17 12:00 30 03/19/17 11:00 76 22 139/64 98 Mechanical Ventilator 30 03/19/17 10:30 80 25 30 03/19/17 10:00 87 23 152/63 98 Mechanical Ventilator 30 03/19/17 09:00 99 03/19/17 09:00 89 24 144/72 98 Mechanical Ventilator 30 03/19/17 08:59 79 26 30 03/19/17 08:00 30 03/19/17 08:00 99.3 77 25 148/62 99 Mechanical Ventilator 30 03/19/17 08:00 99 03/19/17 07:00 84 21 168/71 99 Mechanical Ventilator 30 03/19/17 06:55 79 21 30 03/19/17 06:00 76 24 150/63 99 Mechanical Ventilator 30 03/19/17 05:07 84 25 30 03/19/17 05:00 77 24 161/70 99 Mechanical Ventilator 30 03/19/17 04:00 73 03/19/17 04:00 30 03/19/17 04:00 98.7 81 23 132/57 100 Mechanical Ventilator 30 03/19/17 03:25 80 24 30 03/19/17 03:00 71 23 127/50 100 Mechanical Ventilator 30 03/19/17 02:00 72 20 123/48 100 Mechanical Ventilator 30 03/19/17 01:30 84 26 30 03/19/17 01:00 75 22 143/58 100 Mechanical Ventilator 30 03/19/17 00:00 99.0 80 21 152/63 100 Mechanical Ventilator 30 03/19/17 00:00 78 03/19/17 00:00 30 03/18/17 23:28 79 22 30 03/18/17 23:00 78 20 144/66 100 Mechanical Ventilator 30 03/18/17 22:15 159/75 03/18/17 22:00 87 20 159/75 100 Mechanical Ventilator 30 03/18/17 21:25 84 22 30 03/18/17 21:00 84 21 161/79 100 Mechanical Ventilator 30 03/18/17 20:00 98.4 79 21 146/66 100 Mechanical Ventilator 30 03/18/17 20:00 90 03/18/17 19:30 30 7/12/17 19:30 87 27 Mechanical Ventilator 30 03/18/17 19:30 87 23 30 03/18/17 19:00 83 22 150/64 100 Mechanical Ventilator 30 03/18/17 18:00 81 24 138/65 100 Mechanical Ventilator 30 03/18/17 17:22 86 27 30 03/18/17 17:00 88 25 141/56 98 Mechanical Ventilator 30 03/18/17 16:00 86 03/18/17 16:00 30 03/18/17 16:00 97.9 84 28 135/51 98 Mechanical Ventilator 30 03/18/17 15:00 80 25 127/56 99 Mechanical Ventilator 30 03/18/17 14:57 87 24 30 Intake and Output 03/18/17 03/19/17 19:00 07:00 Intake Total 1570 ml 1735 ml Output Total 1175 ml 1080 ml Balance 395 ml 655 ml Intake Free Water 150 ml 150 ml IV Total 720 ml 985 ml Tube Feeding 600 ml 600 ml Other 100 ml Output Urine Total 1175 ml 1080 ml Laboratory Tests 03/19/17 04:00: White Blood Count 7.0, Red Blood Count 2.70L, Hemoglobin 7.9L, Hematocrit 25.1L , Mean Corpuscular Volume 93, Mean Corpuscular Hemoglobin 29.4, Mean Corpuscular Hemoglobin Concent 31.7L, Red Cell Distribution Width 14.3, Platelet Count 198, Mean Platelet Volume 6.7, Neutrophils (%) (Auto) , Lymphocytes (%) (Auto) , Monocytes (%) (Auto) , Eosinophils (%) (Auto) , Basophils (%) (Auto) , Sodium Level 145, Potassium Level 4.2, Chloride Level 111H, Carbon Dioxide Level 24, Anion Gap 10, Blood Urea Nitrogen 43H, Creatinine 0.7, Estimat Glomerular Filtration Rate , Glucose Level 211H, Calcium Level 8.2L, Phosphorus Level 1.2L, Magnesium Level 1.4L, Total Bilirubin 0.4, Aspartate Amino Transf (AST/SGOT) 14, Alanine Aminotransferase ( ALT/SGPT) 26, Alkaline Phosphatase 125, Lactate Dehydrogenase 224, Total Protein 5.6L, Albumin 1.6L, Globulin 4.0, Albumin/Globulin Ratio 0.4L 03/19/17 11:20: Arterial Blood pH 7.440, Arterial Blood Partial Pressure CO2 35.9, Arterial Blood Partial Pressure O2 101.3H, Arterial Blood HCO3 24.0, Arterial Blood Oxygen Saturation 97.0, Arterial Blood Base Excess 0.1, Yosvany Test Positive Height (Feet): 6 Weight (Pounds): 185 Objective General Appearance: WD/WN, lethargic, confused Neck: supple Cardiovascular: regular rhythm Respiratory/Chest: lungs clear Abdomen: normal bowel sounds, non tender, soft, no organomegaly Edema: no edema noted Arm (L), no edema noted Arm (R), no edema noted Leg (L), no edema noted Leg (R), no edema noted Pedal (L), no edema noted Pedal (R), no edema noted Generalized Neurologic: disoriented, unresponsive Skin: normal pigmentation WENDIE CASTELLANOS Mar 19, 2017 14:41
[2017-03-19] MEDS: Phospha 250 Neutral tab ORAL SCH ×2 (16:55→18:03)
[2017-03-19] MEDS: Dyna-Hex 2% Top Sol 8oz TOPIC SCH (20:54)
[2017-03-20] VITALS (24 sets, daily range): BP systolic 114–160; BP diastolic 47–92
[2017-03-20] MEDS: Meropenem 1 GM in NS 110 ML IVPB SCH ×2 (00:55→09:00)
--- NOTE | 2017-03-20 04:27 | Progress Note ---
DATE: 03/18/2017 CARDIOLOGY PROGRESS NOTE SUBJECTIVE: The patient was seen and evaluated. He remains in the intensive care unit. His condition remains critical with guarded prognosis. He remains on ventilator support. Poor weaning parameters. Demand ventricular pacing noted on monitor as well. OBJECTIVE: VITAL SIGNS: Blood pressure 146/62, pulse 87, respiratory rate 28, and temperature 99.6 degrees. LUNGS: Bilateral breath sounds with rhonchi and rales. HEART: Regular rhythm and rate. Normal S1 and S2. ABDOMEN: Soft. EXTREMITIES: Trace edema. LABORATORY DATA: White count 8.1 and hemoglobin 8.7. Sodium 143, potassium 4.2, bicarbonate 22, BUN 45 and creatinine 0.9. Albumin is 2. ABG 7.30, 46 and 105. IMPRESSION: 1. Respiratory failure. 2. Acute on chronic respiratory acidosis. 3. Severe protein-calorie malnutrition. 4. Anemia. 5. Permanent pacemaker. 6. Recovered lactic acidosis. 7. Recovered metabolic acidosis. 8. Resolved acute myocardial ischemia. 9. Acute on chronic diastolic congestive heart failure. 10. Paroxysmal atrial fibrillation. 11. Remains critical and guarded. PLAN: 1. Remain off pressors. 2. Volume support. 3. Ventilator support with weaning as able. 4. DVT and stress ulcer prophylaxis. 5. Maintain digitalis for rate control. 6. Reassess the therapy in the next 24 hours. 7. Transfuse for hemoglobin less than 8 g. 8. Diuresis based on clinical parameters. Stanislav Jain M.D. DR: SANDEEP JOB#: [id number] CC:
[2017-03-20 05:16] LABS: BASOPHILS % (AUTO) 0.7 % (0.0-2.0); EOSINOPHILS % (AUTO) 2.1 % (0.0-3.0); LYMPHOCYTES % (AUTO) 18.7 % (20.0-45.0); MEAN CORPUSCULAR HEMOGLOBIN 29.2 PG (27.0-31.0); MEAN CORPUSCULAR HGB CONC 31.4 G/DL (32.0-36.0); MEAN CORPUSCULAR VOLUME 93 FL (80-99); MONOCYTES % (AUTO) 8.9 % (1.0-10.0); NEUTROPHILS % (AUTO) 69.6 % (45.0-75.0); PLATELET COUNT 258 K/UL (150-450); RED BLOOD COUNT 3.11 M/UL (4.70-6.10); RED CELL DISTRIBUTION WIDTH 14.5 % (11.6-14.8); WHITE BLOOD COUNT 9.3 K/UL (4.8-10.8)
[2017-03-20] MEDS: NovoLOG Insulin Flexpen SUBQ SCH ×3 (05:46→18:41)
--- NOTE | 2017-03-20 06:15 | Progress Note ---
DATE: 03/19/2017 CARDIOLOGY PROGRESS NOTE SUBJECTIVE: The patient remains in the critical care unit. Condition remains critical. Prognosis remains guarded. The patient remains on ventilator support. The patient has been off pressors for the last 24 to 48 hours. OBJECTIVE: VITAL SIGNS: Blood pressure 118/54, heart rate 76, respiratory rate 25. NECK: Supple. LUNGS: With coarse breath sounds. CARDIAC: Regular rhythm and rate. Normal S1 and S2. ABDOMEN: Soft. EXTREMITIES: Trace edema. LABORATORY DATA: White count 7, hemoglobin 7.9. Magnesium 1.4, phosphorus 1.2, albumin 1.6. Potassium 4.2, BUN 43, creatinine 0.7. ABG, pH 7.44, 36, 100. IMPRESSION: 1. Sepsis with shock. 2. Klebsiella pneumonia. 3. Respiratory failure. 4. Fungal cystitis. 5. Hypomagnesemia. 6. Hypophosphatemia. 7. Paroxysmal atrial fibrillation. 8. Permanent pacemaker. 9. Acute on chronic diastolic congestive heart failure. PLAN: Diuresis with IV magnesium. Phosphorus replacement. Antimicrobials per Infectious Disease it architecture consultant. Diuresis based on clinical parameters. Discontinue additional digoxin therapy at this time. We will continue to follow and assist with cardiovascular management as weaning off ventilator proceeds. Stanislav Jain M.D. DR: Liliya JOB#: [id number] CC:
--- NOTE | 2017-03-20 08:37 | Critical Care Progress Note ---
Assessment/Plan Assessment/Plan 1. Respiratory failure 2. Chronic renal failure. 3. Anemia. 4. Leukocytosis 5. Unstageable left heel ulcer, chronic with Kleb 6. Acute on chronic encephalopathy. 7. Gastrostomy tube 8. Aspiration. 9. Paroxysmal atrial fibrillation. 10. Permanent pacemaker. 11. History of Klebsiella urinary tract infection. 12. Failure to thrive 13. Hypertension. 14. Diabetes mellitus. 15. lactic acidosis PLAN care noted and reviewed IV antibiotics reviewed Lasix with caution and monitor respiratory care as outlined wean as able off the ventilator- not tolerating Ventilatory care noted SNF meds supportive care as outlined suction as needed nutrition tolerated with tube feeds; has GT oxygen therapy and titrate prognosis guarded hope to avoid trach d/w ID with concern for KPC will need to d/w family medications/laboratory data/nursing notes/ICU care reviewed in detail note reviewed and edited care discussed with RN and RT ICU time spent 36 minutes Critical Care - Subjective Interval Events: care noted MDR ? KPC d/w nursing still with secretions not weaning well ROS Limited/Unobtainable: Yes Condition: critical EKG Rhythm: Sinus Rhythm Residuals: minimal Tube Feeding Tolerated: yes I&O: Intake and Output 03/19/17 03/20/17 19:00 07:00 Intake Total 1750 ml 1110 ml Output Total 1440 ml 1980 ml Balance 310 ml -870 ml Intake Free Water 150 ml 150 ml IV Total 950 ml 310 ml Tube Feeding 600 ml 600 ml Other 50 ml 50 ml Output Urine Total 1440 ml 1980 ml Critical Care - Objective CXR: Stable bilateral pulmonary infiltrates, nonspecific Interval PICC placement, adequately positioned ET-Tube: 8.0 ET Position: 24 Last 24 Hour Vital Signs Date Time Temp Pulse Resp B/P Pulse Ox O2 Delivery O2 Flow Rate FiO2 03/20/17 07:00 83 24 155/53 98 Mechanical Ventilator 03/20/17 06:56 87 26 30 03/20/17 06:00 87 24 160/70 98 Mechanical Ventilator 03/20/17 05:26 82 23 30 03/20/17 05:00 86 24 133/61 98 Mechanical Ventilator 03/20/17 04:00 98.5 79 26 138/92 99 Mechanical Ventilator 03/20/17 04:00 73 03/20/17 04:00 30 03/20/17 03:16 73 24 30 03/20/17 03:00 82 24 114/58 98 Mechanical Ventilator 30 03/20/17 02:00 83 26 146/73 98 Mechanical Ventilator 30 03/20/17 01:26 76 25 30 03/20/17 01:00 77 26 142/59 97 Mechanical Ventilator 30 03/20/17 00:00 87 03/20/17 00:00 97.7 74 22 123/51 98 Mechanical Ventilator 30 03/20/17 00:00 30 03/19/17 23:28 76 25 30 03/19/17 23:00 87 26 139/68 97 Mechanical Ventilator 30 03/19/17 22:15 138/57 03/19/17 22:00 79 26 131/59 97 Mechanical Ventilator 30 03/19/17 21:29 89 26 30 03/19/17 21:00 79 26 138/57 97 Mechanical Ventilator 30 03/19/17 20:00 97.9 76 25 118/54 98 Mechanical Ventilator 30 03/19/17 20:00 77 03/19/17 20:00 30 03/19/17 19:24 77 25 30 03/19/17 19:00 80 26 136/57 97 Mechanical Ventilator 30 03/19/17 18:00 98.5 82 26 143/61 99 Mechanical Ventilator 30 03/19/17 17:30 87 26 30 03/19/17 17:00 81 25 130/62 99 Mechanical Ventilator 30 03/19/17 16:10 30 03/19/17 16:00 83 03/19/17 16:00 81 31 143/63 98 Mechanical Ventilator 30 03/19/17 15:30 30 03/19/17 15:17 80 24 30 03/19/17 15:07 99 03/19/17 15:00 81 31 143/63 98 Mechanical Ventilator 30 03/19/17 14:00 71 22 137/71 98 Mechanical Ventilator 30 03/19/17 13:00 69 22 141/69 98 Mechanical Ventilator 30 03/19/17 12:55 73 25 30 03/19/17 12:00 97.7 70 22 137/66 98 Mechanical Ventilator 30 03/19/17 12:00 89 03/19/17 12:00 30 03/19/17 11:00 76 22 139/64 98 Mechanical Ventilator 30 03/19/17 10:30 80 25 30 03/19/17 10:00 87 23 152/63 98 Mechanical Ventilator 30 03/19/17 09:00 99 03/19/17 09:00 89 24 144/72 98 Mechanical Ventilator 30 03/19/17 08:59 79 26 30 Labs: Labs Test 03/17/17 09:15 03/17/17 10:35 03/18/17 04:00 03/18/17 13:12 White Blood Count 8.9 K/UL (4.8-10.8) 8.1 K/UL (4.8-10.8) Red Blood Count 2.86 M/UL (4.70-6.10) 2.95 M/UL (4.70-6.10) Hemoglobin 8.4 G/DL (14.2-18.0) 8.7 G/DL (14.2-18.0) Hematocrit 26.2 % (42.0-52.0) 27.4 % (42.0-52.0) Mean Corpuscular Volume 92 FL (80-99) 93 FL (80-99) Mean Corpuscular Hemoglobin 29.5 PG (27.0-31.0) 29.5 PG (27.0-31.0) Mean Corpuscular Hemoglobin Concent 32.2 G/DL (32.0-36.0) 31.7 G/DL (32.0-36.0) Red Cell Distribution Width 13.7 % (11.6-14.8) 14.3 % (11.6-14.8) Platelet Count 186 K/UL (150-450) 199 K/UL (150-450) Mean Platelet Volume 6.0 FL (6.5-10.1) 6.8 FL (6.5-10.1) Neutrophils (%) (Auto) 80.8 % (45.0-75.0) 78.1 % (45.0-75.0) Lymphocytes (%) (Auto) 11.5 % (20.0-45.0) 12.4 % (20.0-45.0) Monocytes (%) (Auto) 5.8 % (1.0-10.0) 7.6 % (1.0-10.0) Eosinophils (%) (Auto) 1.6 % (0.0-3.0) 1.0 % (0.0-3.0) Basophils (%) (Auto) 0.3 % (0.0-2.0) 0.8 % (0.0-2.0) Sodium Level 141 mEQ/L (135-145) 143 mEQ/L (135-145) Potassium Level 3.9 mEQ/L (3.4-4.9) 4.2 mEQ/L (3.4-4.9) Chloride Level 110 mEQ/L (98-107) 107 mEQ/L (98-107) Carbon Dioxide Level 21 mEQ/L (20-30) 22 mEQ/L (20-30) Anion Gap 10 (5-15) 14 (5-15) Blood Urea Nitrogen 47 mg/dL (7-23) 45 mg/dL (7-23) Creatinine 1.1 mg/dL (0.7-1.2) 0.9 mg/dL (0.7-1.2) Estimat Glomerular Filtration Rate mL/min (>60) mL/min (>60) Glucose Level 191 mg/dL (74-106) 207 mg/dL (74-106) Calcium Level 7.4 mg/dL (8.6-10.2) 8.4 mg/dL (8.6-10.2) Magnesium Level 1.8 mg/dL (1.7-2.5) Total Bilirubin 0.5 mg/dL (0.0-1.2) 0.5 mg/dL (0.0-1.2) Aspartate Amino Transf (AST/SGOT) 35 U/L (5-40) 23 U/L (5-40) Alanine Aminotransferase (ALT/SGPT) 51 U/L (3-41) 38 U/L (3-41) Alkaline Phosphatase 119 U/L (40-129) 184 U/L (40-129) Total Protein 5.6 g/dL (6.6-8.7) 6.0 g/dL (6.6-8.7) Albumin 1.9 g/dL (3.5-5.2) 2.0 g/dL (3.5-5.2) Globulin 3.7 g/dL 4.0 g/dL Albumin/Globulin Ratio 0.5 (1.0-2.7) 0.5 (1.0-2.7) Arterial Blood pH 7.289 (7.350-7.450) 7.300 (7.350-7.450) Arterial Blood Partial Pressure CO2 46.5 mmHg (35.0-45.0) 45.7 mmHg (35.0-45.0) Arterial Blood Partial Pressure O2 117.3 mmHg (75.0-100.0) 105.6 mmHg (75.0-100.0) Arterial Blood HCO3 21.8 mmol/L (22.0-26.0) 22.4 mmol/L (22.0-26.0) Arterial Blood Oxygen Saturation 97.6 % (92.0-98.0) 97.3 % (92.0-98.0) Arterial Blood Base Excess -4.6 -3.7 Yosvany Test Positive Positive Test 03/19/17 04:00 03/19/17 11:20 03/20/17 04:00 White Blood Count 7.0 K/UL (4.8-10.8) 9.3 K/UL (4.8-10.8) Red Blood Count 2.70 M/UL (4.70-6.10) 3.11 M/UL (4.70-6.10) Hemoglobin 7.9 G/DL (14.2-18.0) 9.1 G/DL (14.2-18.0) Hematocrit 25.1 % (42.0-52.0) 29.0 % (42.0-52.0) Mean Corpuscular Volume 93 FL (80-99) 93 FL (80-99) Mean Corpuscular Hemoglobin 29.4 PG (27.0-31.0) 29.2 PG (27.0-31.0) Mean Corpuscular Hemoglobin Concent 31.7 G/DL (32.0-36.0) 31.4 G/DL (32.0-36.0) Red Cell Distribution Width 14.3 % (11.6-14.8) 14.5 % (11.6-14.8) Platelet Count 198 K/UL (150-450) 258 K/UL (150-450) Mean Platelet Volume 6.7 FL (6.5-10.1) 6.0 FL (6.5-10.1) Neutrophils (%) (Auto) % (45.0-75.0) 69.6 % (45.0-75.0) Lymphocytes (%) (Auto) % (20.0-45.0) 18.7 % (20.0-45.0) Monocytes (%) (Auto) % (1.0-10.0) 8.9 % (1.0-10.0) Eosinophils (%) (Auto) % (0.0-3.0) 2.1 % (0.0-3.0) Basophils (%) (Auto) % (0.0-2.0) 0.7 % (0.0-2.0) Sodium Level 145 mEQ/L (135-145) Potassium Level 4.2 mEQ/L (3.4-4.9) Chloride Level 111 mEQ/L (98-107) Carbon Dioxide Level 24 mEQ/L (20-30) Anion Gap 10 (5-15) Blood Urea Nitrogen 43 mg/dL (7-23) Creatinine 0.7 mg/dL (0.7-1.2) Estimat Glomerular Filtration Rate mL/min (>60) Glucose Level 211 mg/dL (74-106) Calcium Level 8.2 mg/dL (8.6-10.2) Phosphorus Level 1.2 mg/dL (2.5-4.8) Magnesium Level 1.4 mg/dL (1.7-2.5) Total Bilirubin 0.4 mg/dL (0.0-1.2) Aspartate Amino Transf (AST/SGOT) 14 U/L (5-40) Alanine Aminotransferase (ALT/SGPT) 26 U/L (3-41) Alkaline Phosphatase 125 U/L (40-129) Lactate Dehydrogenase 224 U/L (135-230) Total Protein 5.6 g/dL (6.6-8.7) Albumin 1.6 g/dL (3.5-5.2) Globulin 4.0 g/dL Albumin/Globulin Ratio 0.4 (1.0-2.7) Arterial Blood pH 7.440 (7.350-7.450) Arterial Blood Partial Pressure CO2 35.9 mmHg (35.0-45.0) Arterial Blood Partial Pressure O2 101.3 mmHg (75.0-100.0) Arterial Blood HCO3 24.0 mmol/L (22.0-26.0) Arterial Blood Oxygen Saturation 97.0 % (92.0-98.0) Arterial Blood Base Excess 0.1 Yosvany Test Positive Pro-B-Type Natriuretic Peptide 61818 pg/mL (0-450) Objective: GENERAL: The patient is sedated on the ventilator NAD HEENT: Oropharynx is moist. Gag present. NECK: Supple. Carotids 2+. LUNGS: Coarse breath sounds and symmetric. No wheezes but noted scattered rhonchi. CARDIAC: S1 and S2. Regular rate and rhythm. Soft at the parasternal border. No rubs or gallops. ABDOMEN: Soft and nontender. No distention. no HSM; GT EXTREMITIES: No cyanosis. No clubbing. No edema. left heel wound NEUROLOGIC: Grossly nonfocal. still withdrawn reviewed and edited Micro: Microbiology Date/Time Source Procedure Growth Status 03/18/17 20:30 Sputum Gram Stain - Final Resulted 03/18/17 20:30 Sputum Sputum Culture Pending Resulted Accucheck: 208 REJI OJEDA Mar 20, 2017 08:37
[2017-03-20 08:59] LABS: ALANINE AMINOTRANSFERASE 23 U/L (3-41); ALBUMIN/GLOBULIN RATIO 0.5 (1.0-2.7); ANION GAP 7 (5-15); ASPARTATE AMINO TRANSFERASE 16 U/L (5-40); CALCIUM 8.2 mg/dL (8.6-10.2); CARBON DIOXIDE 27 mEQ/L (20-30); CHLORIDE 109 mEQ/L (98-107); CREATININE 0.7 mg/dL (0.7-1.2); HEMOLYSIS 1; MAGNESIUM 1.7 mg/dL (1.7-2.5); PHOSPHORUS 2.2 mg/dL (2.5-4.8); POTASSIUM 4.4 mEQ/L (3.4-4.9); SODIUM 143 mEQ/L (135-145); TOTAL PROTEIN 6.1 g/dL (6.6-8.7)
[2017-03-20 10:25] LABS: ABG ALLEN TEST POSITIVE; ABG BASE EXCESS 1.7; ABG PCO2 46.7 mmHg (35.0-45.0)
[2017-03-20] MEDS: Phospha 250 Neutral tab ORAL SCH ×3 (10:31→18:41)
[2017-03-20] MEDS: Fluconazole 100mg tab ORAL SCH (10:31)
[2017-03-20] MEDS: Tamsulosin 0.4mg cap GT SCH (10:31)
[2017-03-20] MEDS: Ferrous Sulfate 300 MG/5 ML UDC GT SCH (10:31)
[2017-03-20] MEDS: sitaGLIPtin 25mg tab GT SCH (10:32)
[2017-03-20] MEDS: Bactrim Susp 20ml PEG SCH ×2 (10:32→20:31)
[2017-03-20] MEDS: Ascorbic Acid 500mg tab GT SCH (10:32)
[2017-03-20] MEDS: Heparin 5000 units/ml inj SUBQ SCH ×2 (10:34→20:34)
--- NOTE | 2017-03-20 11:06 | Infectious Diseases Prog Note ---
Assessment/Plan Assessment/Plan A 1. fungal UTI 2. MDR Klebsiella & Acinetobacter pneumonia 3. septic shock resolved 4. respiratory failure 5. leucocytosis resolved 6. DM P 1. continue fluconazole 3 more days 3. Continue Gentamicin inhaler & Bactrim Subjective ROS Limited/Unobtainable: Yes Allergies: Coded Allergies: No Known Allergies (Unverified , 01/07/17) Objective Vital Signs Last 24 Hour Vital Signs Date Time Temp Pulse Resp B/P Pulse Ox O2 Delivery O2 Flow Rate FiO2 03/20/17 09:01 100 03/20/17 09:01 89 26 30 03/20/17 09:00 80 22 152/68 99 Mechanical Ventilator 30 03/20/17 08:00 63 03/20/17 08:00 98.9 85 22 153/53 99 Mechanical Ventilator 30 03/20/17 08:00 30 03/20/17 07:00 83 24 155/53 98 Mechanical Ventilator 30 03/20/17 06:56 87 26 30 03/20/17 06:00 87 24 160/70 98 Mechanical Ventilator 30 03/20/17 05:26 82 23 30 03/20/17 05:00 86 24 133/61 98 Mechanical Ventilator 30 03/20/17 04:00 98.5 79 26 138/92 99 Mechanical Ventilator 30 03/20/17 04:00 73 03/20/17 04:00 30 03/20/17 03:16 73 24 30 03/20/17 03:00 82 24 114/58 98 Mechanical Ventilator 30 03/20/17 02:00 83 26 146/73 98 Mechanical Ventilator 03/20/17 01:26 76 25 30 03/20/17 01:00 77 26 142/59 97 Mechanical Ventilator 03/20/17 00:00 87 03/20/17 00:00 97.7 74 22 123/51 98 Mechanical Ventilator 30 03/20/17 00:00 30 03/19/17 23:28 76 25 30 03/19/17 23:00 87 26 139/68 97 Mechanical Ventilator 30 03/19/17 22:15 138/57 03/19/17 22:00 79 26 131/59 97 Mechanical Ventilator 30 03/19/17 21:29 89 26 30 03/19/17 21:00 79 26 138/57 97 Mechanical Ventilator 30 03/19/17 20:00 97.9 76 25 118/54 98 Mechanical Ventilator 30 03/19/17 20:00 77 03/19/17 20:00 30 03/19/17 19:24 77 25 30 03/19/17 19:00 80 26 136/57 97 Mechanical Ventilator 30 03/19/17 18:00 98.5 82 26 143/61 99 Mechanical Ventilator 30 03/19/17 17:30 87 26 30 03/19/17 17:00 81 25 130/62 99 Mechanical Ventilator 30 03/19/17 16:10 30 03/19/17 16:00 83 03/19/17 16:00 81 31 143/63 98 Mechanical Ventilator 30 03/19/17 15:30 30 03/19/17 15:17 80 24 30 03/19/17 15:07 99 03/19/17 15:00 81 31 143/63 98 Mechanical Ventilator 30 03/19/17 14:00 71 22 137/71 98 Mechanical Ventilator 30 03/19/17 13:00 69 22 141/69 98 Mechanical Ventilator 30 03/19/17 12:55 73 25 30 03/19/17 12:00 97.7 70 22 137/66 98 Mechanical Ventilator 30 03/19/17 12:00 89 03/19/17 12:00 30 Height (Feet): 6 Weight (Pounds): 183 HEENT: other - orally intubated Respiratory/Chest: other - on ventilator, coarse sounds Cardiovascular: normal rate Abdomen: soft, non tender, other - GT feeding Extremities: no edema Neurologic/Psychiatric: unresponsiveness Microbiology Date/Time Source Procedure Growth Status 03/18/17 20:30 Sputum Gram Stain - Final Resulted 03/18/17 20:30 Sputum Culture - Preliminary Gram Negative Bacillus 1 Gram Negative Bacillus 2 Resulted Laboratory Tests Test 03/19/17 11:20 03/20/17 04:00 03/20/17 10:10 Arterial Blood pH 7.440 (7.350-7.450) 7.383 (7.350-7.450) Arterial Blood Partial Pressure CO2 35.9 mmHg (35.0-45.0) 46.7 mmHg (35.0-45.0) H Arterial Blood Partial Pressure O2 101.3 mmHg (75.0-100.0) H 93.8 mmHg (75.0-100.0) Arterial Blood HCO3 24.0 mmol/L (22.0-26.0) 27.2 mmol/L (22.0-26.0) H Arterial Blood Oxygen Saturation 97.0 % (92.0-98.0) 96.4 % (92.0-98.0) Arterial Blood Base Excess 0.1 1.7 Yosvany Test Positive Positive White Blood Count 9.3 K/UL (4.8-10.8) Red Blood Count 3.11 M/UL (4.70-6.10) L Hemoglobin 9.1 G/DL (14.2-18.0) L Hematocrit 29.0 % (42.0-52.0) L Mean Corpuscular Volume 93 FL (80-99) Mean Corpuscular Hemoglobin 29.2 PG (27.0-31.0) Mean Corpuscular Hemoglobin Concent 31.4 G/DL (32.0-36.0) L Red Cell Distribution Width 14.5 % (11.6-14.8) Platelet Count 258 K/UL (150-450) Mean Platelet Volume 6.0 FL (6.5-10.1) L Neutrophils (%) (Auto) 69.6 % (45.0-75.0) Lymphocytes (%) (Auto) 18.7 % (20.0-45.0) L Monocytes (%) (Auto) 8.9 % (1.0-10.0) Eosinophils (%) (Auto) 2.1 % (0.0-3.0) Basophils (%) (Auto) 0.7 % (0.0-2.0) Sodium Level 143 mEQ/L (135-145) Potassium Level 4.4 mEQ/L (3.4-4.9) Chloride Level 109 mEQ/L (98-107) H Carbon Dioxide Level 27 mEQ/L (20-30) Anion Gap 7 (5-15) Blood Urea Nitrogen 39 mg/dL (7-23) H Creatinine 0.7 mg/dL (0.7-1.2) Estimat Glomerular Filtration Rate mL/min (>60) Glucose Level 193 mg/dL (74-106) H Calcium Level 8.2 mg/dL (8.6-10.2) L Phosphorus Level 2.2 mg/dL (2.5-4.8) L Magnesium Level 1.7 mg/dL (1.7-2.5) Total Bilirubin 0.4 mg/dL (0.0-1.2) Aspartate Amino Transf (AST/SGOT) 16 U/L (5-40) Alanine Aminotransferase (ALT/SGPT) 23 U/L (3-41) Alkaline Phosphatase 106 U/L (40-129) Pro-B-Type Natriuretic Peptide 17336 pg/mL (0-450) H Total Protein 6.1 g/dL (6.6-8.7) L Albumin 2.1 g/dL (3.5-5.2) L Globulin 4.0 g/dL Albumin/Globulin Ratio 0.5 (1.0-2.7) L Current Medications Medications (Trade) Dose Ordered Sig/Subhash Route PRN Reason Start Time Stop Time Status Last Admin Dose Admin Acetaminophen (Tylenol) 650 mg Q4H PRN ORAL Mild Pain/Temp > 100.5 03/13/17 21:15 04/12/17 21:14 03/19/17 09:54 Al Hydroxide/Mg Hydroxide (Mylanta) 30 ml EVERY 4 HOURS PRN GT heartburn 03/14/17 01:00 04/13/17 00:59 Ascorbic Acid (Vitamin C) 500 mg DAILY GT 03/16/17 11:05 04/14/17 08:59 03/20/17 10:32 Atorvastatin Calcium (Lipitor) 10 mg BEDTIME GT 03/14/17 21:00 04/13/17 20:59 03/19/17 20:54 Chlorhexidine Gluconate (Laura-Hex 2%) 1 applic QHS TOPIC 03/15/17 21:00 04/14/17 20:59 03/19/17 20:54 Dextrose (Dextrose 50%) STAT PRN IV Hypoglycemia 03/13/17 19:45 04/12/17 19:44 Docusate Sodium (Colace) 250 mg BEDTIME PRN GT Constipation 03/14/17 01:45 04/13/17 01:44 03/18/17 20:46 Ferrous Sulfate (Feosol) 325 mg DAILY GT 03/14/17 09:00 04/13/17 08:59 03/20/17 10:31 Finasteride (Proscar) 5 mg DAILY GT 03/14/17 09:00 04/13/17 08:59 03/20/17 10:32 Fluconazole (Diflucan) 100 mg DAILY ORAL 03/17/17 13:00 03/24/17 12:59 03/20/17 10:31 Gentamicin Sulfate (Gentamicin vial) 300 mg Q12HR@10,22 INH 03/20/17 10:30 03/27/17 10:29 Heparin Sodium (Porcine) (Heparin 5000 units/ml) 5,000 units EVERY 12 HOURS SUBQ 03/14/17 09:00 04/13/17 08:59 03/20/17 10:34 Insulin Aspart (NovoLOG) EVERY 6 HOURS SUBQ 03/14/17 06:00 04/13/17 05:59 03/20/17 05:46 Lansoprazole (Prevacid) 30 mg DAILY GT 03/14/17 09:00 04/13/17 08:59 03/20/17 10:32 Lorazepam (Ativan 2mg/ml 1ml) 1 mg Q4H PRN IV For Anxiety 03/16/17 09:00 03/23/17 08:59 03/19/17 09:56 Magnesium Hydroxide (Mom) 30 ml DAILYPRN PRN ORAL Constipation 03/18/17 08:30 04/17/17 08:29 Magnesium Sulfate (Magnesium Sulfate 1gm/100ml) 100 ml @ 100 mls/hr Q1H IVPB 03/20/17 10:00 03/20/17 11:59 Phosphorus 250 mg 250 mg THREE TIMES A DAY ORAL 03/19/17 15:00 04/18/17 14:59 03/20/17 10:31 Sitagliptin Phosphate (Januvia) 50 mg DAILY GT 03/14/17 09:00 04/13/17 08:59 03/20/17 10:32 Tamsulosin HCl (Flomax) 0.4 mg DAILY GT 03/14/17 09:00 04/13/17 08:59 03/20/17 10:31 Trimethoprim/ Sulfamethoxazole (Bactrim-DS) 20 ml EVERY 12 HOURS PEG 03/19/17 12:00 03/26/17 11:59 03/20/17 10:32 Zolpidem Tartrate (Ambien) 5 mg HSPRN PRN GT Insomnia 03/14/17 01:00 04/13/17 00:59 ABDOULAYE ALFONSO Mar 20, 2017 11:06
[2017-03-20] MEDS: Gentamicin for inhalation INH SCH ×2 (12:23→21:04)
[2017-03-20] MEDS ORDERED: Milk of Magnesia 30ml Ud GT PRN (12:36)
--- NOTE | 2017-03-20 15:59 | General Progress Note ---
Assessment/Plan Problem List: (1) Shock ICD Codes: R57.9 - Shock, unspecified SNOMED: 18200394 (2) toxic metabo (3) toxic metabolic encephalopathy 2/2 infecion/metabolc derangement (4) Respiratory failure ICD Codes: J96.90 - Respiratory failure, unspecified, unspecified whether with hypoxia or hypercapnia SNOMED: 561911461 Qualifiers: Qualified Codes: J96.01 - Acute respiratory failure with hypoxia (5) Renal insufficiency ICD Codes: N28.9 - Disorder of kidney and ureter, unspecified SNOMED: 436580520, 177648026 (6) UTI (urinary tract infection) ICD Codes: N39.0 - Urinary tract infection, site not specified SNOMED: 28301493 Qualifiers: Qualified Codes: T83.511A - Infection and inflammatory reaction due to indwelling urethral catheter, initial encounter; N39.0 - Urinary tract infection , site not specified (7) Pneumonia ICD Codes: J18.9 - Pneumonia, unspecified organism SNOMED: 050212256 Qualifiers: Qualified Codes: J18.9 - Pneumonia, unspecified organism (8) Severe sepsis ICD Codes: A41.9 - Sepsis, unspecified organism; R65.20 - Severe sepsis without septic shock SNOMED: 75195301 Status: stable, not improved Assessment/Plan iv abx follow up cultures wean vent monitor labs laxatives critical and guarded eeg neuro consult may need trach Subjective ROS Limited/Unobtainable: Yes Constitutional: Reports: malaise, weakness HEENT: Reports: no symptoms Cardiovascular: Reports: no symptoms Respiratory: Reports: cough, shortness of breath, sputum Gastrointestinal/Abdominal: Reports: difficulty swallowing Genitourinary: Reports: no symptoms Neurologic/Psychiatric: Reports: pre-existing deficit Endocrine: Reports: no symptoms Hematologic/Lymphatic: Reports: anemia Allergies: Coded Allergies: No Known Allergies (Unverified , 01/07/17) All Systems: reviewed and negative except above Subjective no overnight events. off pressors. still with significant secretions. still poorly responsive. head ct negative. Objective Last 24 Hour Vital Signs Date Time Temp Pulse Resp B/P Pulse Ox O2 Delivery O2 Flow Rate FiO2 03/20/17 15:00 80 22 150/59 99 Mechanical Ventilator 30 03/20/17 14:52 85 28 30 03/20/17 14:00 82 22 135/61 99 Mechanical Ventilator 30 03/20/17 13:00 82 22 148/57 99 Mechanical Ventilator 30 03/20/17 12:42 82 26 99 Mechanical Ventilator 30 03/20/17 12:31 93 27 30 03/20/17 12:23 30 03/20/17 12:23 88 29 100 Mechanical Ventilator 30 03/20/17 12:04 86 03/20/17 12:02 30 03/20/17 12:00 98.5 90 22 154/71 99 Mechanical Ventilator 30 03/20/17 11:05 93 27 30 03/20/17 11:00 87 22 158/66 99 Mechanical Ventilator 30 03/20/17 10:00 80 22 152/68 99 Mechanical Ventilator 30 03/20/17 09:01 100 03/20/17 09:01 89 26 30 03/20/17 09:00 80 22 152/68 99 Mechanical Ventilator 30 03/20/17 08:00 63 03/20/17 08:00 98.9 85 22 153/53 99 Mechanical Ventilator 30 03/20/17 08:00 30 03/20/17 07:00 83 24 155/53 98 Mechanical Ventilator 30 03/20/17 06:56 87 26 30 03/20/17 06:00 87 24 160/70 98 Mechanical Ventilator 30 03/20/17 05:26 82 23 30 03/20/17 05:00 86 24 133/61 98 Mechanical Ventilator 30 03/20/17 04:00 98.5 79 26 138/92 99 Mechanical Ventilator 30 03/20/17 04:00 73 03/20/17 04:00 30 03/20/17 03:16 73 24 30 03/20/17 03:00 82 24 114/58 98 Mechanical Ventilator 30 03/20/17 02:00 83 26 146/73 98 Mechanical Ventilator 30 03/20/17 01:26 76 25 30 03/20/17 01:00 77 26 142/59 97 Mechanical Ventilator 30 03/20/17 00:00 87 03/20/17 00:00 97.7 74 22 123/51 98 Mechanical Ventilator 30 03/20/17 00:00 30 03/19/17 23:28 76 25 30 03/19/17 23:00 87 26 139/68 97 Mechanical Ventilator 30 03/19/17 22:15 138/57 03/19/17 22:00 79 26 131/59 97 Mechanical Ventilator 30 03/19/17 21:29 89 26 30 03/19/17 21:00 79 26 138/57 97 Mechanical Ventilator 30 03/19/17 20:00 97.9 76 25 118/54 98 Mechanical Ventilator 30 03/19/17 20:00 77 03/19/17 20:00 30 03/19/17 19:24 77 25 30 03/19/17 19:00 80 26 136/57 97 Mechanical Ventilator 30 03/19/17 18:00 98.5 82 26 143/61 99 Mechanical Ventilator 30 03/19/17 17:30 87 26 30 03/19/17 17:00 81 25 130/62 99 Mechanical Ventilator 30 03/19/17 16:10 30 03/19/17 16:00 83 03/19/17 16:00 81 31 143/63 98 Mechanical Ventilator 30 Intake and Output 03/19/17 03/20/17 19:00 07:00 Intake Total 1750 ml 1110 ml Output Total 1440 ml 1980 ml Balance 310 ml -870 ml Intake Free Water 150 ml 150 ml IV Total 950 ml 310 ml Tube Feeding 600 ml 600 ml Other 50 ml 50 ml Output Urine Total 1440 ml 1980 ml Laboratory Tests 03/20/17 04:00: White Blood Count 9.3, Red Blood Count 3.11L, Hemoglobin 9.1L, Hematocrit 29.0L , Mean Corpuscular Volume 93, Mean Corpuscular Hemoglobin 29.2, Mean Corpuscular Hemoglobin Concent 31.4L, Red Cell Distribution Width 14.5, Platelet Count 258, Mean Platelet Volume 6.0L, Neutrophils (%) (Auto) 69.6, Lymphocytes (%) (Auto) 18.7L, Monocytes (%) (Auto) 8.9, Eosinophils (%) (Auto) 2.1, Basophils (%) (Auto) 0.7, Sodium Level 143, Potassium Level 4.4, Chloride Level 109H, Carbon Dioxide Level 27, Anion Gap 7, Blood Urea Nitrogen 39H, Creatinine 0.7, Estimat Glomerular Filtration Rate , Glucose Level 193H, Calcium Level 8.2L, Phosphorus Level 2.2L, Magnesium Level 1.7, Total Bilirubin 0.4, Aspartate Amino Transf (AST/SGOT) 16, Alanine Aminotransferase (ALT/SGPT) 23, Alkaline Phosphatase 106, Pro-B-Type Natriuretic Peptide 33218I, Total Protein 6.1L, Albumin 2.1L, Globulin 4.0, Albumin/Globulin Ratio 0.5L 03/20/17 10:10: Arterial Blood pH 7.383, Arterial Blood Partial Pressure CO2 46.7H, Arterial Blood Partial Pressure O2 93.8, Arterial Blood HCO3 27.2H, Arterial Blood Oxygen Saturation 96.4, Arterial Blood Base Excess 1.7, Yosvany Test Positive Height (Feet): 6 Weight (Pounds): 183 Objective General Appearance: WD/WN, lethargic, confused Neck: supple Cardiovascular: regular rhythm Respiratory/Chest: lungs clear Abdomen: normal bowel sounds, non tender, soft, no organomegaly Edema: no edema noted Arm (L), no edema noted Arm (R), no edema noted Leg (L), no edema noted Leg (R), no edema noted Pedal (L), no edema noted Pedal (R), no edema noted Generalized Neurologic: disoriented, unresponsive Skin: normal pigmentation WENDIE CASTELLANOS Mar 20, 2017 15:59
--- NOTE | 2017-03-20 19:14 | Neurology Progress Note ---
Interim History Interim History ROS Limited/Unobtainable: Yes Objective Physical Exam Last Vital Signs Date Time Temp Pulse Resp B/P Pulse Ox O2 Delivery O2 Flow Rate FiO2 03/20/17 19:00 73 24 30 03/20/17 18:00 149/60 100 Mechanical Ventilator 03/20/17 16:00 98.9 03/13/17 21:55 15.0 Laboratory Tests Test 03/20/17 04:00 03/20/17 10:10 White Blood Count 9.3 K/UL (4.8-10.8) Red Blood Count 3.11 M/UL (4.70-6.10) L Hemoglobin 9.1 G/DL (14.2-18.0) L Hematocrit 29.0 % (42.0-52.0) L Mean Corpuscular Volume 93 FL (80-99) Mean Corpuscular Hemoglobin 29.2 PG (27.0-31.0) Mean Corpuscular Hemoglobin Concent 31.4 G/DL (32.0-36.0) L Red Cell Distribution Width 14.5 % (11.6-14.8) Platelet Count 258 K/UL (150-450) Mean Platelet Volume 6.0 FL (6.5-10.1) L Neutrophils (%) (Auto) 69.6 % (45.0-75.0) Lymphocytes (%) (Auto) 18.7 % (20.0-45.0) L Monocytes (%) (Auto) 8.9 % (1.0-10.0) Eosinophils (%) (Auto) 2.1 % (0.0-3.0) Basophils (%) (Auto) 0.7 % (0.0-2.0) Sodium Level 143 mEQ/L (135-145) Potassium Level 4.4 mEQ/L (3.4-4.9) Chloride Level 109 mEQ/L (98-107) H Carbon Dioxide Level 27 mEQ/L (20-30) Anion Gap 7 (5-15) Blood Urea Nitrogen 39 mg/dL (7-23) H Creatinine 0.7 mg/dL (0.7-1.2) Estimat Glomerular Filtration Rate mL/min (>60) Glucose Level 193 mg/dL (74-106) H Calcium Level 8.2 mg/dL (8.6-10.2) L Phosphorus Level 2.2 mg/dL (2.5-4.8) L Magnesium Level 1.7 mg/dL (1.7-2.5) Total Bilirubin 0.4 mg/dL (0.0-1.2) Aspartate Amino Transf (AST/SGOT) 16 U/L (5-40) Alanine Aminotransferase (ALT/SGPT) 23 U/L (3-41) Alkaline Phosphatase 106 U/L (40-129) Pro-B-Type Natriuretic Peptide 08948 pg/mL (0-450) H Total Protein 6.1 g/dL (6.6-8.7) L Albumin 2.1 g/dL (3.5-5.2) L Globulin 4.0 g/dL Albumin/Globulin Ratio 0.5 (1.0-2.7) L Arterial Blood pH 7.383 (7.350-7.450) Arterial Blood Partial Pressure CO2 46.7 mmHg (35.0-45.0) H Arterial Blood Partial Pressure O2 93.8 mmHg (75.0-100.0) Arterial Blood HCO3 27.2 mmol/L (22.0-26.0) H Arterial Blood Oxygen Saturation 96.4 % (92.0-98.0) Arterial Blood Base Excess 1.7 Yosvany Test Positive Impression/Recommendations Problems: (1) persistant coma , probably severe anoxic/metabolic encephalopathy (2) Respiratory failure (3) UTI (urinary tract infection) Status: stable, not improved Recommendations # [id number] AARON TAVERAS Mar 20, 2017 19:14
[2017-03-20] MEDS: Dyna-Hex 2% Top Sol 8oz TOPIC SCH (20:31)
[2017-03-20] MEDS ORDERED: KCl 10% 20 mEq/15ml liquid NG ONE (22:00)
[2017-03-20] MEDS: Metoprolol 25mg tab ORAL SCH (22:20)
[2017-03-21] VITALS (24 sets, daily range): BP systolic 113–166; BP diastolic 49–78
[2017-03-21] MEDS: NovoLOG Insulin Flexpen SUBQ SCH ×5 (00:31→23:51)
--- NOTE | 2017-03-21 02:45 | Consultation ---
DATE OF CONSULTATION: 03/20/2017 NEUROLOGICAL CONSULTATION REQUESTING PHYSICIAN: Jona Guerra M.D. HISTORY OF PRESENT ILLNESS: The patient is an 82-year-old man, resident of a nursing facility presented with the progressive respiratory distress and hypoxia and fevers to 103 degrees. With this he become unresponsive and brought to this facility. O2 saturation on admission 87% prior to oxygen support. His vital signs on admission, blood pressure 84/72, temperature 100 degrees, and heart rate of 98. The patient was urgently intubated, given fluid bolus, sepsis protocol. His blood pressure continued to drop, required a pressors and central line was placed. He was sedated with Versed and started on Levophed. The patient was maintained in the ICU. His imaging studies on admission included chest x-ray with increased bilateral interstitial infiltrates suggestive of pulmonary edema/CHF. He had a CT of the brain obtained on 03/18/2017, this revealed chronic and age-related changes. No evidence of acute intracranial abnormalities. Lab work on admission included CBC study with WBC 20.1 and hemoglobin 10.3, and hematocrit 31.1. Coagulation panel with INR 1.2. Urinalysis with WBCs too numerous to count, and 3+ leukocyte esterase. Chemistry panel on admission included BUN of 34 and creatinine 1.3. CPK 1063. BNP 7625. Lactic acid elevation 4.90. BNP elevated 25,989. Since admission until present time, the patient remained essentially unchanged, intubated, motionless, nonverbal, and no responsive to verbal stimulation. His condition remains critical with full ventilator support. He was documented paroxysmal atrial fibrillation, acute myocardial ischemia and congestive heart failure as well as acute respiratory and metabolic acidosis. Due to persistent of unresponsiveness, Neurology consult was requested. PAST MEDICAL HISTORY: Prior to admission, he was diagnosed with pacemaker, coronary artery disease, hypertension, hypertensive heart disease, insulin-dependent diabetes, chronic renal failure, chronic anemia, COPD, and dementia. MEDICATIONS: His treatment prior to admission included atorvastatin, carvedilol, ferrous sulfate, Proscar, [place] p.r.n., insulin, lisinopril, metformin, Reglan, pantoprazole, Januvia, tamsulosin, Kayexalate, Flomax, Restoril, and zolpidem. He is currently off sedating. ALLERGIES: None reported. FAMILY HISTORY: Noncontributory. REVIEW OF SYSTEMS: Unable to obtain due to the patient's status. PHYSICAL EXAMINATION: GENERAL: The patient is well-developed and well-nourished, elderly man, lying in bed, intubated. VITAL SIGNS: His blood pressure is 116/47 and heart rate of 72. HEENT: Head, normocephalic. There is no evidence of trauma. Eyes, ears, and throat are clear. NECK: Supple. No meningeal signs. MUSCULOSKELETAL: Slight rigidity both upper extremities. Peripheral pulses 1+, symmetric. MENTAL STATUS: No response to verbal stimulation. No response to external rub. Remain in bed with eyes closed. CRANIAL NERVE II: Pupils both responding to light and accommodation. Extraocular movement full range. CRANIAL NERVE V: Normal corneal responses. CRANIAL NERVE VII: No facial asymmetry. CRANIAL NERVE VIII: Gait not tested. CRANIAL NERVES IX THROUGH XII: Absent gag response. Tongue is in midline. MOTOR EXAMINATION: Rigidity on flexion and extension of both upper extremities, slightly also both lower extremities, but no spontaneous movement noted. Deep tendon reflexes depressed bilaterally. Plantar response is mute. IMPRESSION: 1. This is an 82-year-old man with progressive respiratory failure, required intubation, resulted in anoxic and metabolic encephalopathy, now persistent. 2. Fungal urinary tract infection. 3. Klebsiella pneumonia. 4. Sepsis, septic shock. 5. Acute respiratory/metabolic acidosis. 6. Paroxysmal atrial fibrillation, on permanent pacemaker. 7. Hypertension. 8. Diabetes type 2. DISCUSSION: The patient developed a progressive respiratory failure, become unresponsive while at the nursing facility. Following admission, significant metabolic derangement and underlying infection were treated. The patient remained comatose indicating a presence of severe encephalopathy, most likely anoxic, but also contributed by metabolic derangement. No evidence of acute intracranial abnormality, strokes or hemorrhage. We will obtain electroencephalogram to rule out nonconvulsive seizure activities. Although, the patient responded to antibiotics, his mental status abnormality remained unchanged. This represents a poor neurological prognosis. Thank you for allowing me to see this interesting patient in neurological consultation. Fazal Castellanos M.D. DR: MELBA JOB#: [id number] CC:
--- NOTE | 2017-03-21 03:15 | Progress Note ---
DATE: 03/20/2017 CARDIOLOGY PROGRESS NOTE SUBJECTIVE: The patient remains on ventilator support. Weaning has been poor. He remains critical and guarded. He is poorly responsive. OBJECTIVE: VITAL SIGNS: Blood pressure 139/56, pulse 76, and respirations 28. Afebrile. Monitored rhythm, atrial fibrillation with ventricular pacing by demand. NECK: Supple. LUNGS: Coarse breath sounds. Orally intubated. CARDIAC: Irregularly irregular rhythm. Normal S1 and S2. ABDOMEN: Soft. EXTREMITIES: No edema. LABORATORY DATA: White count 9.3 and hemoglobin 9.1. Sodium 143, potassium 4.4, bicarbonate 27, BUN 39, and creatinine 0.7. Magnesium 1.7. Phosphorus 2.2. Albumin 2.1. Pro natriuretic peptide 25,000. ABG, pH 7.38, pCO2 47, and pO2 94. IMPRESSION: 1. Coma due to anoxic and metabolic encephalopathy. 2. Respiratory failure. 3. Sepsis with recovered shock. 4. Urinary tract infection. 5. Paroxysmal atrial fibrillation. 6. Acute on chronic diastolic congestive heart failure. 7. Permanent pacemaker. 8. Hypomagnesemia. 9. Hypophosphatemia. PLAN: 1. Off pressors. 2. Discontinued intravenous fluids. 3. Reassess for diuresis. 4. Broad-spectrum antibiotics. 5. Insulin coverage by sliding scale. 6. Add beta-ann. 7. EEG pending. Stanislav Jain M.D. DR: CAREY JOB#: [id number] CC:
[2017-03-21] MEDS: Gentamicin for inhalation INH SCH ×2 (08:43→23:01)
[2017-03-21] MEDS: Bactrim Susp 20ml PEG SCH ×2 (09:00→20:51)
[2017-03-21] MEDS: Metoprolol 25mg tab ORAL SCH ×2 (09:39→20:50)
[2017-03-21] MEDS: sitaGLIPtin 25mg tab GT SCH (09:39)
[2017-03-21] MEDS: Ferrous Sulfate 300 MG/5 ML UDC GT SCH (09:39)
[2017-03-21] MEDS: Phospha 250 Neutral tab ORAL SCH ×3 (09:40→18:03)
[2017-03-21] MEDS: Fluconazole 100mg tab GT SCH (09:40)
[2017-03-21] MEDS: Tamsulosin 0.4mg cap GT SCH (09:40)
[2017-03-21] MEDS: Ascorbic Acid 500mg tab GT SCH (09:40)
[2017-03-21] MEDS: Heparin 5000 units/ml inj SUBQ SCH ×2 (09:42→20:52)
--- NOTE | 2017-03-21 09:47 | Critical Care Progress Note ---
Assessment/Plan Assessment/Plan 1. Respiratory failure 2. Chronic renal failure. 3. Anemia. 4. Leukocytosis 5. Unstageable left heel ulcer, chronic with Kleb 6. Acute on chronic encephalopathy. 7. Gastrostomy tube 8. Aspiration. 9. Paroxysmal atrial fibrillation. 10. Permanent pacemaker. 11. History of Klebsiella urinary tract infection. 12. Failure to thrive 13. Hypertension. 14. Diabetes mellitus. 15. lactic acidosis 16. [facility] PLAN care noted and reviewed surgery called proceed with trach IV antibiotics reviewed ID aware Lasix with caution and monitor respiratory care as outlined not safe to extubate with congestion and poor LOC Ventilatory care noted SNF meds supportive care as outlined suction as needed nutrition tolerated with tube feeds; has GT oxygen therapy and titrate prognosis guarded procee with trach family aware medications/laboratory data/nursing notes/ICU care reviewed in detail note reviewed and edited care discussed with RN and RT ICU time spent 36 minutes Critical Care - Subjective Interval Events: d/w son in detail family agree to trach will need subacute aware ROS Limited/Unobtainable: Yes Condition: critical EKG Rhythm: Sinus Rhythm Residuals: minimal Tube Feeding Tolerated: yes I&O: Intake and Output 03/20/17 03/21/17 19:00 07:00 Intake Total 950 ml 800 ml Output Total 930 ml 1680 ml Balance 20 ml -880 ml Intake Free Water 150 ml 150 ml IV Total 200 ml Tube Feeding 600 ml 600 ml Other 50 ml Output Urine Total 930 ml 1680 ml Critical Care - Objective ET-Tube: 8.0 ET Position: 24 Last 24 Hour Vital Signs Date Time Temp Pulse Resp B/P Pulse Ox O2 Delivery O2 Flow Rate FiO2 03/21/17 09:39 85 113/50 03/21/17 09:15 100 03/21/17 09:12 71 26 100 Mechanical Ventilator 03/21/17 09:00 69 24 113/50 100 Mechanical Ventilator 03/21/17 08:42 78 29 98 Mechanical Ventilator 03/21/17 08:40 75 27 30 03/21/17 08:00 30 03/21/17 08:00 99.5 80 26 146/64 97 Mechanical Ventilator 03/21/17 07:00 77 22 158/66 100 Mechanical Ventilator 03/21/17 06:49 81 26 30 03/21/17 06:00 80 22 136/69 100 Mechanical Ventilator 30 03/21/17 05:10 74 26 30 03/21/17 05:00 78 22 166/65 100 Mechanical Ventilator 30 03/21/17 04:00 69 03/21/17 04:00 98.5 71 22 131/51 99 Mechanical Ventilator 30 03/21/17 04:00 30 03/21/17 03:06 68 27 30 03/21/17 03:00 65 22 137/55 100 Mechanical Ventilator 30 03/21/17 02:00 66 22 119/49 100 Mechanical Ventilator 30 03/21/17 01:00 67 22 130/52 100 Mechanical Ventilator 30 03/21/17 00:55 66 27 30 03/21/17 00:00 65 03/21/17 00:00 98.9 65 22 126/50 99 Mechanical Ventilator 30 03/21/17 00:00 30 03/20/17 23:05 65 28 30 03/20/17 23:00 65 22 121/54 100 Mechanical Ventilator 30 03/20/17 22:20 80 132/53 03/20/17 22:00 80 22 132/53 100 Mechanical Ventilator 30 03/20/17 21:20 81 29 100 Mechanical Ventilator 30 03/20/17 21:05 83 29 30 03/20/17 21:05 30 03/20/17 21:05 83 29 98 Mechanical Ventilator 30 03/20/17 21:00 79 22 149/67 100 Mechanical Ventilator 30 03/20/17 20:00 30 03/20/17 20:00 82 03/20/17 20:00 98.5 76 28 139/56 98 Mechanical Ventilator 30 03/20/17 19:00 80 22 116/47 100 Mechanical Ventilator 30 03/20/17 19:00 73 24 30 03/20/17 18:00 80 22 149/60 100 Mechanical Ventilator 30 03/20/17 17:00 81 22 156/61 100 Mechanical Ventilator 30 03/20/17 16:31 83 24 30 03/20/17 16:04 79 03/20/17 16:00 98.9 82 22 140/57 99 Mechanical Ventilator 30 03/20/17 16:00 30 03/20/17 15:00 80 22 150/59 99 Mechanical Ventilator 30 03/20/17 14:52 85 28 30 03/20/17 14:00 82 22 135/61 99 Mechanical Ventilator 30 03/20/17 13:00 82 22 148/57 99 Mechanical Ventilator 30 03/20/17 12:42 82 26 99 Mechanical Ventilator 30 03/20/17 12:31 93 27 30 03/20/17 12:23 30 03/20/17 12:23 88 29 100 Mechanical Ventilator 30 03/20/17 12:04 86 03/20/17 12:02 30 03/20/17 12:00 98.5 90 22 154/71 99 Mechanical Ventilator 30 03/20/17 11:05 93 27 30 03/20/17 11:00 87 22 158/66 99 Mechanical Ventilator 30 03/20/17 10:00 80 22 152/68 99 Mechanical Ventilator 30 Labs: Labs Test 03/18/17 13:12 03/19/17 04:00 03/19/17 11:20 03/20/17 04:00 Arterial Blood pH 7.300 (7.350-7.450) 7.440 (7.350-7.450) Arterial Blood Partial Pressure CO2 45.7 mmHg (35.0-45.0) 35.9 mmHg (35.0-45.0) Arterial Blood Partial Pressure O2 105.6 mmHg (75.0-100.0) 101.3 mmHg (75.0-100.0) Arterial Blood HCO3 22.4 mmol/L (22.0-26.0) 24.0 mmol/L (22.0-26.0) Arterial Blood Oxygen Saturation 97.3 % (92.0-98.0) 97.0 % (92.0-98.0) Arterial Blood Base Excess -3.7 0.1 Yosvany Test Positive Positive White Blood Count 7.0 K/UL (4.8-10.8) 9.3 K/UL (4.8-10.8) Red Blood Count 2.70 M/UL (4.70-6.10) 3.11 M/UL (4.70-6.10) Hemoglobin 7.9 G/DL (14.2-18.0) 9.1 G/DL (14.2-18.0) Hematocrit 25.1 % (42.0-52.0) 29.0 % (42.0-52.0) Mean Corpuscular Volume 93 FL (80-99) 93 FL (80-99) Mean Corpuscular Hemoglobin 29.4 PG (27.0-31.0) 29.2 PG (27.0-31.0) Mean Corpuscular Hemoglobin Concent 31.7 G/DL (32.0-36.0) 31.4 G/DL (32.0-36.0) Red Cell Distribution Width 14.3 % (11.6-14.8) 14.5 % (11.6-14.8) Platelet Count 198 K/UL (150-450) 258 K/UL (150-450) Mean Platelet Volume 6.7 FL (6.5-10.1) 6.0 FL (6.5-10.1) Neutrophils (%) (Auto) % (45.0-75.0) 69.6 % (45.0-75.0) Lymphocytes (%) (Auto) % (20.0-45.0) 18.7 % (20.0-45.0) Monocytes (%) (Auto) % (1.0-10.0) 8.9 % (1.0-10.0) Eosinophils (%) (Auto) % (0.0-3.0) 2.1 % (0.0-3.0) Basophils (%) (Auto) % (0.0-2.0) 0.7 % (0.0-2.0) Sodium Level 145 mEQ/L (135-145) 143 mEQ/L (135-145) Potassium Level 4.2 mEQ/L (3.4-4.9) 4.4 mEQ/L (3.4-4.9) Chloride Level 111 mEQ/L (98-107) 109 mEQ/L (98-107) Carbon Dioxide Level 24 mEQ/L (20-30) 27 mEQ/L (20-30) Anion Gap 10 (5-15) 7 (5-15) Blood Urea Nitrogen 43 mg/dL (7-23) 39 mg/dL (7-23) Creatinine 0.7 mg/dL (0.7-1.2) 0.7 mg/dL (0.7-1.2) Estimat Glomerular Filtration Rate mL/min (>60) mL/min (>60) Glucose Level 211 mg/dL (74-106) 193 mg/dL (74-106) Calcium Level 8.2 mg/dL (8.6-10.2) 8.2 mg/dL (8.6-10.2) Phosphorus Level 1.2 mg/dL (2.5-4.8) 2.2 mg/dL (2.5-4.8) Magnesium Level 1.4 mg/dL (1.7-2.5) 1.7 mg/dL (1.7-2.5) Total Bilirubin 0.4 mg/dL (0.0-1.2) 0.4 mg/dL (0.0-1.2) Aspartate Amino Transf (AST/SGOT) 14 U/L (5-40) 16 U/L (5-40) Alanine Aminotransferase (ALT/SGPT) 26 U/L (3-41) 23 U/L (3-41) Alkaline Phosphatase 125 U/L (40-129) 106 U/L (40-129) Lactate Dehydrogenase 224 U/L (135-230) Total Protein 5.6 g/dL (6.6-8.7) 6.1 g/dL (6.6-8.7) Albumin 1.6 g/dL (3.5-5.2) 2.1 g/dL (3.5-5.2) Globulin 4.0 g/dL 4.0 g/dL Albumin/Globulin Ratio 0.4 (1.0-2.7) 0.5 (1.0-2.7) Pro-B-Type Natriuretic Peptide 43993 pg/mL (0-450) Test 03/20/17 10:10 Arterial Blood pH 7.383 (7.350-7.450) Arterial Blood Partial Pressure CO2 46.7 mmHg (35.0-45.0) Arterial Blood Partial Pressure O2 93.8 mmHg (75.0-100.0) Arterial Blood HCO3 27.2 mmol/L (22.0-26.0) Arterial Blood Oxygen Saturation 96.4 % (92.0-98.0) Arterial Blood Base Excess 1.7 Yosvany Test Positive Objective: GENERAL: The patient is sedated on the ventilator NAD HEENT: Oropharynx is moist. Gag present. NECK: Supple. Carotids 2+. LUNGS: Coarse breath sounds and symmetric. No wheezes but noted scattered rhonchi. CARDIAC: S1 and S2. Regular rate and rhythm. Soft at the parasternal border. No rubs or gallops. ABDOMEN: Soft and nontender. No distention. no HSM; GT EXTREMITIES: No cyanosis. No clubbing. No edema. left heel wound NEUROLOGIC: Grossly nonfocal. still withdrawn reviewed and edited Micro: Microbiology Date/Time Source Procedure Growth Status 03/18/17 20:30 Sputum Gram Stain - Final Complete 03/18/17 20:30 Sputum Culture - Final A.baumanii Complx - Mdr Complete Accucheck: 202 REJI OJEDA Mar 21, 2017 09:47
[2017-03-21 10:39] LABS: ABG BASE EXCESS -0.6; ABG PCO2 61.5 mmHg (35.0-45.0)
[2017-03-21 10:40] LABS: ABG ALLEN TEST POSITIVE
--- NOTE | 2017-03-21 11:45 | Progress Note ---
DATE: 03/21/2017 CARDIOLOGY PROGRESS NOTE SUBJECTIVE: The patient remains in the intensive care unit. Orally intubated. Poorly responsive. Condition remains critical. Prognosis remains guarded. OBJECTIVE: VITAL SIGNS: Blood pressure 113/50, pulse 70, and respirations 24. Orally intubated. LUNGS: Coarse breath sounds with rhonchi. HEART: Regular rhythm and rate. Normal S1 and S2. ABDOMEN: Soft. No edema. LABORATORY DATA: Monitored rhythm, atrial fibrillation with demand ventricular pacing. Laboratories are pending. IMPRESSION: 1. Pneumonia with Acinetobacter and Klebsiella. 2. Respiratory failure. 3. Sepsis. 4. Permanent pacemaker. 5. Paroxysmal atrial fibrillation. 6. Metabolic toxic encephalopathies. 7. Severe sepsis. 8. Recovered shock. 9. Acute on chronic renal failure. PLAN: 1. Remain off pressors. 2. Antimicrobials. 3. Ventilator support with wean as able. 4. Replace electrolytes. 5. Titrate beta-ann. 6. ICU care. Stanislav Jain M.D. DR: MADELIN JOB#: [id number] CC:
--- NOTE | 2017-03-21 14:03 | General Progress Note ---
Assessment/Plan Problem List: (1) Shock ICD Codes: R57.9 - Shock, unspecified SNOMED: 14116591 (2) toxic metabo (3) toxic metabolic encephalopathy 2/2 infecion/metabolc derangement (4) Respiratory failure ICD Codes: J96.90 - Respiratory failure, unspecified, unspecified whether with hypoxia or hypercapnia SNOMED: 537397982 Qualifiers: Qualified Codes: J96.01 - Acute respiratory failure with hypoxia (5) Renal insufficiency ICD Codes: N28.9 - Disorder of kidney and ureter, unspecified SNOMED: 340134992, 475311151 (6) UTI (urinary tract infection) ICD Codes: N39.0 - Urinary tract infection, site not specified SNOMED: 61803673 Qualifiers: Qualified Codes: T83.511A - Infection and inflammatory reaction due to indwelling urethral catheter, initial encounter; N39.0 - Urinary tract infection , site not specified (7) Pneumonia ICD Codes: J18.9 - Pneumonia, unspecified organism SNOMED: 850177080 Qualifiers: Qualified Codes: J18.9 - Pneumonia, unspecified organism (8) Severe sepsis ICD Codes: A41.9 - Sepsis, unspecified organism; R65.20 - Severe sepsis without septic shock SNOMED: 06826557 Status: stable, not improved, unchanged Assessment/Plan iv abx follow up cultures wean vent monitor labs laxatives critical and guarded neuro appreciated proceed with trach Subjective ROS Limited/Unobtainable: Yes Constitutional: Reports: malaise, weakness HEENT: Reports: no symptoms Cardiovascular: Reports: no symptoms Respiratory: Reports: shortness of breath, sputum Gastrointestinal/Abdominal: Reports: difficulty swallowing Genitourinary: Reports: no symptoms Neurologic/Psychiatric: Reports: pre-existing deficit Endocrine: Reports: no symptoms Hematologic/Lymphatic: Reports: no symptoms Allergies: Coded Allergies: No Known Allergies (Unverified , 01/07/17) All Systems: reviewed and negative except above Subjective no overnight events. off pressors. still with significant secretions. still poorly responsive. head ct negative. d/w neuro. anoxic event suspected. pulm noted. low grade temps Objective Last 24 Hour Vital Signs Date Time Temp Pulse Resp B/P Pulse Ox O2 Delivery O2 Flow Rate FiO2 03/21/17 13:24 74 22 30 03/21/17 13:00 66 21 123/53 95 Mechanical Ventilator 30 03/21/17 12:00 100.0 72 26 148/62 100 Mechanical Ventilator 30 03/21/17 12:00 30 03/21/17 12:00 67 03/21/17 11:00 68 24 118/55 100 Mechanical Ventilator 30 03/21/17 10:31 76 24 30 03/21/17 10:00 83 24 154/78 100 Mechanical Ventilator 30 03/21/17 09:39 85 113/50 03/21/17 09:15 100 03/21/17 09:12 71 26 100 Mechanical Ventilator 03/21/17 09:00 69 24 113/50 100 Mechanical Ventilator 30 03/21/17 08:42 78 29 98 Mechanical Ventilator 30 03/21/17 08:40 75 27 30 03/21/17 08:00 83 03/21/17 08:00 30 03/21/17 08:00 99.5 80 26 146/64 97 Mechanical Ventilator 30 03/21/17 07:00 77 22 158/66 100 Mechanical Ventilator 30 03/21/17 06:49 81 26 30 03/21/17 06:00 80 22 136/69 100 Mechanical Ventilator 30 03/21/17 05:10 74 26 30 03/21/17 05:00 78 22 166/65 100 Mechanical Ventilator 30 03/21/17 04:00 69 03/21/17 04:00 98.5 71 22 131/51 99 Mechanical Ventilator 30 03/21/17 04:00 30 03/21/17 03:06 68 27 30 03/21/17 03:00 65 22 137/55 100 Mechanical Ventilator 30 03/21/17 02:00 66 22 119/49 100 Mechanical Ventilator 30 03/21/17 01:00 67 22 130/52 100 Mechanical Ventilator 30 03/21/17 00:55 66 27 30 03/21/17 00:00 65 03/21/17 00:00 98.9 65 22 126/50 99 Mechanical Ventilator 30 03/21/17 00:00 30 03/20/17 23:05 65 28 30 03/20/17 23:00 65 22 121/54 100 Mechanical Ventilator 30 03/20/17 22:20 80 132/53 03/20/17 22:00 80 22 132/53 100 Mechanical Ventilator 30 03/20/17 21:20 81 29 100 Mechanical Ventilator 30 03/20/17 21:05 83 29 30 03/20/17 21:05 30 03/20/17 21:05 83 29 98 Mechanical Ventilator 30 03/20/17 21:00 79 22 149/67 100 Mechanical Ventilator 30 03/20/17 20:00 30 03/20/17 20:00 82 03/20/17 20:00 98.5 76 28 139/56 98 Mechanical Ventilator 30 03/20/17 19:00 80 22 116/47 100 Mechanical Ventilator 03/20/17 19:00 73 24 30 03/20/17 18:00 80 22 149/60 100 Mechanical Ventilator 30 03/20/17 17:00 81 22 156/61 100 Mechanical Ventilator 30 03/20/17 16:31 83 24 30 03/20/17 16:04 79 03/20/17 16:00 98.9 82 22 140/57 99 Mechanical Ventilator 30 03/20/17 16:00 30 03/20/17 15:00 80 22 150/59 99 Mechanical Ventilator 03/20/17 14:52 85 28 30 Intake and Output 03/20/17 03/21/17 19:00 07:00 Intake Total 950 ml 800 ml Output Total 930 ml 1680 ml Balance 20 ml -880 ml Intake Free Water 150 ml 150 ml IV Total 200 ml Tube Feeding 600 ml 600 ml Other 50 ml Output Urine Total 930 ml 1680 ml Laboratory Tests 03/21/17 10:30: Arterial Blood pH 7.260L, Arterial Blood Partial Pressure CO2 61.5*H, Arterial Blood Partial Pressure O2 73.8L, Arterial Blood HCO3 27.3H, Arterial Blood Oxygen Saturation 92.5, Arterial Blood Base Excess -0.6, Yosvany Test Positive Height (Feet): 6 Weight (Pounds): 182 Objective General Appearance: WD/WN, lethargic, confused Neck: supple Cardiovascular: regular rhythm Respiratory/Chest: lungs clear Abdomen: normal bowel sounds, non tender, soft, no organomegaly Edema: no edema noted Arm (L), no edema noted Arm (R), no edema noted Leg (L), no edema noted Leg (R), no edema noted Pedal (L), no edema noted Pedal (R), no edema noted Generalized Neurologic: disoriented, unresponsive Skin: normal pigmentation WENDIE CASTELLANOS Mar 21, 2017 14:03
--- NOTE | 2017-03-21 14:33 | Neurology Progress Note ---
Interim History Interim History ROS Limited/Unobtainable: Yes Complaints: coma Events: no change EEG c/w severe encephalopathy Objective Physical Exam Last Vital Signs Date Time Temp Pulse Resp B/P Pulse Ox O2 Delivery O2 Flow Rate FiO2 03/21/17 14:00 67 21 132/57 98 Mechanical Ventilator 30 03/21/17 12:00 100.0 03/13/17 21:55 15.0 Laboratory Tests Test 03/21/17 10:30 Arterial Blood pH 7.260 (7.350-7.450) Arterial Blood Partial Pressure CO2 61.5 mmHg (35.0-45.0) *H Arterial Blood Partial Pressure O2 73.8 mmHg (75.0-100.0) L Arterial Blood HCO3 27.3 mmol/L (22.0-26.0) H Arterial Blood Oxygen Saturation 92.5 % (92.0-98.0) Arterial Blood Base Excess -0.6 Yosvany Test Positive General: well developed, no acute distress, other - on vent Head: normocophalic, atraumatic Neck: no rigidity Neurologic Exam Mental Status: other - no responce to voice Cranial Nerve II: no papilledema Cranial Nerves III, IV, : PERRLA, EOMI Cranial Nerve V: other Cranial Nerve VII: no facial asymmetry Cranial Nerve VIII: no nystagmus Cranial Nerve IX: other - no gag Cranial Nerve X: other Cranial Nerve XI: other Cranial Nerve XII: tongue midline, no tongue atrophy/fasciculations Motor System: no muscle wasting, other - flaccid Sensory: other Deep Tendon Reflexes: 0 ankle (L), 0 ankle (R), 0 bicep (L), 0 bicep (R), 0 brachioradialis (L), 0 brachioradialis (R), 0 knee (L), 0 knee (R), 0 tricep (L) , 0 tricep (R) Reflexes: mute plantar (L), mute plantar (R) Impression/Recommendations Problems: (1) persistant coma , probably severe anoxic/metabolic encephalopathy (2) Respiratory failure (3) UTI (urinary tract infection) Status: stable, not improved, unchanged Recommendations # [id number] poor prognosis from neuropoint no meaningful neurorecovery expected cont supportive care AARON TAVERAS Mar 21, 2017 14:33
--- NOTE | 2017-03-21 18:15 | Electroencephalogram ---
DATE OF PROCEDURE: 03/20/2017 ELECTROENCEPHALOGRAPHY REPORT REQUESTING PHYSICIAN: Jona Guerra M.D. HISTORY: The patient is an 82-year-old man status post anoxic metabolic encephalopathy, respiratory failure, on pacemaker, and chronic renal failure on dialysis presenting with persistent unresponsiveness. EEG requested to assess cortical malfunction. TECHNIQUE: EEG was done using 18 electrodes placed scalp to scalp, scalp to ear montages according to 10/20 International System. The patient described as being lethargic, obtunded and unresponsive. Throughout the recording, background activity consists of a low to medium voltage, reactive, average 4-6 cycles per second theta activities bilaterally with occasional EMG artifacts. There was no significant asymmetry from [id number]. No spike or wave activities noted. Activation of eye open and eye closure of normal reactivity. IMPRESSION: Abnormal electroencephalogram in presence of severe diffuse slowing. COMMENT: The above abnormality may indicate significant toxic metabolic encephalopathy, but also possible diffuse structural lesion, anoxic lesion. Absence of paroxysmal event on a single recording does not rule out seizure disorder. Fazal Castellanos M.D. DR: MELBA JOB#: [id number] CC:
[2017-03-21] MEDS: Dyna-Hex 2% Top Sol 8oz TOPIC SCH (20:52)
[2017-03-21] MEDS: Docusate 100mg/10ml Liq GT PRN (21:13)
[2017-03-22] VITALS (24 sets, daily range): BP systolic 120–164; BP diastolic 45–90
[2017-03-22] MEDS: NovoLOG Insulin Flexpen SUBQ SCH ×4 (05:59→23:34)
--- NOTE | 2017-03-22 07:52 | Infectious Diseases Prog Note ---
Assessment/Plan Assessment/Plan A 1. fungal UTI 2. MDR Klebsiella & Acinetobacter pneumonia 3. septic shock resolved 4. respiratory failure 5. leucocytosis resolved 6. DM 7. Encephalopathy 8. multiple pressure ulcers P 1. continue fluconazole 1 more day 3. Continue Gentamicin inhaler & Bactrim Subjective ROS Limited/Unobtainable: Yes Constitutional: Reports: other - Low grade fever, T cxm=714.1 Respiratory: Reports: other - failed weaning yesterday Allergies: Coded Allergies: No Known Allergies (Unverified , 01/07/17) Objective Vital Signs Last 24 Hour Vital Signs Date Time Temp Pulse Resp B/P Pulse Ox O2 Delivery O2 Flow Rate FiO2 03/22/17 07:05 79 22 30 03/22/17 07:00 77 23 149/67 99 Mechanical Ventilator 30 03/22/17 06:00 75 22 156/65 98 Mechanical Ventilator 30 03/22/17 05:00 80 22 146/62 99 Mechanical Ventilator 30 03/22/17 04:47 68 19 30 03/22/17 04:00 30 03/22/17 04:00 98.5 71 20 155/90 100 Mechanical Ventilator 30 03/22/17 04:00 69 03/22/17 03:00 69 22 139/59 98 Mechanical Ventilator 30 03/22/17 02:34 70 22 30 03/22/17 02:00 74 22 152/65 98 Mechanical Ventilator 30 03/22/17 01:00 72 22 152/61 98 Mechanical Ventilator 30 03/22/17 00:42 72 16 30 03/22/17 00:00 30 03/22/17 00:00 98.7 79 16 150/65 100 Mechanical Ventilator 03/22/17 00:00 79 03/21/17 23:01 70 20 98 Mechanical Ventilator 30 03/21/17 23:00 68 20 30 03/21/17 23:00 69 16 149/69 100 Mechanical Ventilator 30 03/21/17 22:00 73 21 144/61 99 Mechanical Ventilator 30 03/21/17 21:30 70 21 100 Mechanical Ventilator 30 03/21/17 21:04 64 23 30 03/21/17 21:00 68 21 144/61 98 Mechanical Ventilator 30 03/21/17 20:50 69 140/60 03/21/17 20:00 30 03/21/17 20:00 69 03/21/17 20:00 99.3 66 20 140/60 98 Mechanical Ventilator 30 03/21/17 19:00 70 22 160/75 98 Mechanical Ventilator 30 03/21/17 18:58 70 18 30 03/21/17 18:00 73 22 148/66 97 Mechanical Ventilator 30 03/21/17 18:00 73 21 148/66 97 Mechanical Ventilator 30 03/21/17 17:00 76 20 159/62 97 Mechanical Ventilator 30 03/21/17 16:51 68 18 30 03/21/17 16:00 68 03/21/17 16:00 100.1 68 20 134/54 98 Mechanical Ventilator 30 03/21/17 16:00 30 03/21/17 15:00 69 23 139/58 98 Mechanical Ventilator 30 03/21/17 14:35 69 20 30 03/21/17 14:00 67 21 132/57 98 Mechanical Ventilator 30 03/21/17 13:33 99.8 03/21/17 13:24 74 22 30 03/21/17 13:00 66 21 123/53 95 Mechanical Ventilator 30 03/21/17 12:00 100.0 72 26 148/62 100 Mechanical Ventilator 30 03/21/17 12:00 30 03/21/17 12:00 67 03/21/17 11:00 68 24 118/55 100 Mechanical Ventilator 30 03/21/17 10:31 76 24 30 03/21/17 10:00 83 24 154/78 100 Mechanical Ventilator 30 03/21/17 09:39 85 113/50 03/21/17 09:15 100 03/21/17 09:12 71 26 100 Mechanical Ventilator 03/21/17 09:00 69 24 113/50 100 Mechanical Ventilator 30 03/21/17 08:42 78 29 98 Mechanical Ventilator 30 03/21/17 08:40 75 27 30 03/21/17 08:00 83 03/21/17 08:00 30 03/21/17 08:00 99.5 80 26 146/64 97 Mechanical Ventilator 30 Height (Feet): 6 Weight (Pounds): 182 General Appearance: no acute distress HEENT: other - orally intubated Respiratory/Chest: lungs clear, other - on ventilator Cardiovascular: normal rate Abdomen: soft, non tender, other - NG tube feeding Extremities: other - R arm PICC line, trace edema Skin: ulcers Laboratory Tests Test 03/21/17 10:30 Arterial Blood pH 7.260 (7.350-7.450) Arterial Blood Partial Pressure CO2 61.5 mmHg (35.0-45.0) *H Arterial Blood Partial Pressure O2 73.8 mmHg (75.0-100.0) L Arterial Blood HCO3 27.3 mmol/L (22.0-26.0) H Arterial Blood Oxygen Saturation 92.5 % (92.0-98.0) Arterial Blood Base Excess -0.6 Yosvany Test Positive Current Medications Medications (Trade) Dose Ordered Sig/Subhash Route PRN Reason Start Time Stop Time Status Last Admin Dose Admin Acetaminophen (Tylenol) 650 mg Q4H PRN ORAL Mild Pain/Temp > 100.5 03/13/17 21:15 04/12/17 21:14 03/21/17 12:34 Al Hydroxide/Mg Hydroxide (Mylanta) 30 ml EVERY 4 HOURS PRN GT heartburn 03/14/17 01:00 04/13/17 00:59 Ascorbic Acid (Vitamin C) 500 mg DAILY GT 03/16/17 11:05 04/14/17 08:59 03/21/17 09:40 Atorvastatin Calcium (Lipitor) 10 mg BEDTIME GT 03/14/17 21:00 04/13/17 20:59 03/21/17 20:50 Chlorhexidine Gluconate (Laura-Hex 2%) 1 applic QHS TOPIC 03/15/17 21:00 04/14/17 20:59 03/21/17 20:52 Dextrose (Dextrose 50%) STAT PRN IV Hypoglycemia 03/13/17 19:45 04/12/17 19:44 Docusate Sodium (Colace) 250 mg BEDTIME PRN GT Constipation 03/14/17 01:45 04/13/17 01:44 03/21/17 21:13 Ferrous Sulfate (Feosol) 325 mg DAILY GT 03/14/17 09:00 04/13/17 08:59 03/21/17 09:39 Finasteride (Proscar) 5 mg DAILY GT 03/14/17 09:00 04/13/17 08:59 03/21/17 09:53 Fluconazole (Diflucan) 100 mg DAILY GT 03/20/17 12:36 03/24/17 12:59 03/21/17 09:40 Gentamicin Sulfate (Gentamicin vial) 300 mg Q12HR@10,22 INH 03/20/17 10:30 03/27/17 10:29 03/21/17 23:01 Heparin Sodium (Porcine) (Heparin 5000 units/ml) 5,000 units EVERY 12 HOURS SUBQ 03/14/17 09:00 04/13/17 08:59 03/21/17 20:52 Insulin Aspart (NovoLOG) EVERY 6 HOURS SUBQ 03/14/17 06:00 04/13/17 05:59 03/22/17 05:59 Lansoprazole (Prevacid) 30 mg DAILY GT 03/14/17 09:00 04/13/17 08:59 03/21/17 09:40 Lorazepam (Ativan 2mg/ml 1ml) 1 mg Q4H PRN IV For Anxiety 03/16/17 09:00 03/23/17 08:59 03/19/17 09:56 Magnesium Hydroxide (Mom) 30 ml DAILYPRN PRN GT Constipation 03/20/17 12:36 04/17/17 08:29 Metoprolol Tartrate (Lopressor) 25 mg Q12HR ORAL 03/20/17 22:00 04/19/17 21:59 03/21/17 20:50 Phosphorus (Phospha 250 Neutral) 250 mg THREE TIMES A DAY ORAL 03/19/17 15:00 04/18/17 14:59 03/21/17 18:03 Sitagliptin Phosphate (Januvia) 50 mg DAILY GT 03/14/17 09:00 04/13/17 08:59 03/21/17 09:39 Tamsulosin HCl (Flomax) 0.4 mg DAILY GT 03/14/17 09:00 04/13/17 08:59 03/21/17 09:40 Trimethoprim/ Sulfamethoxazole (Bactrim-DS) 20 ml EVERY 12 HOURS PEG 03/19/17 12:00 03/26/17 11:59 03/21/17 20:51 Zolpidem Tartrate (Ambien) 5 mg HSPRN PRN GT Insomnia 03/14/17 01:00 04/13/17 00:59 ABDOULAYE ALFONSO Mar 22, 2017 07:52
[2017-03-22] MEDS: Bactrim Susp 20ml PEG SCH ×2 (09:06→21:00)
[2017-03-22] MEDS: Ascorbic Acid 500mg tab GT SCH (09:07)
[2017-03-22] MEDS: Ferrous Sulfate 300 MG/5 ML UDC GT SCH (09:07)
[2017-03-22] MEDS: Metoprolol 25mg tab ORAL SCH ×2 (09:07→21:00)
[2017-03-22] MEDS: Phospha 250 Neutral tab ORAL SCH ×3 (09:07→17:58)
[2017-03-22] MEDS: Tamsulosin 0.4mg cap GT SCH (09:07)
[2017-03-22] MEDS: sitaGLIPtin 25mg tab GT SCH (09:07)
[2017-03-22] MEDS: Fluconazole 100mg tab GT SCH (09:07)
[2017-03-22] MEDS: Heparin 5000 units/ml inj SUBQ SCH ×2 (09:09→21:02)
[2017-03-22] MEDS: Gentamicin for inhalation INH SCH ×2 (09:53→22:59)
[2017-03-22] MEDS ORDERED: Tubing IV Secondary IV ONE (11:16)
[2017-03-22] MEDS ORDERED: NS 275ml ONE ×2 (11:16→15:13)
--- NOTE | 2017-03-22 11:47 | Critical Care Progress Note ---
Assessment/Plan Assessment/Plan 1. Respiratory failure 2. Chronic renal failure. 3. Anemia. 4. Leukocytosis 5. Unstageable left heel ulcer, chronic with Kleb 6. Acute on chronic encephalopathy. 7. Gastrostomy tube 8. Aspiration. 9. Paroxysmal atrial fibrillation. 10. Permanent pacemaker. 11. History of Klebsiella urinary tract infection. 12. Failure to thrive 13. Hypertension. 14. Diabetes mellitus. 15. lactic acidosis 16. [facility] PLAN care noted and reviewed exam without change surgery for trach IV antibiotics reviewed ID aware of [facility] monitor renal function respiratory care as outlined ABG poor on wean Ventilatory care noted SNF meds supportive care as outlined suction as needed nutrition tolerated with tube feeds; has GT oxygen therapy and titrate prognosis guarded procee with trach family aware medications/laboratory data/nursing notes/ICU care reviewed in detail note reviewed and edited care discussed with RN and RT ICU time spent 37 minutes Critical Care - Subjective Interval Events: poor LOC d/w nursing care reviewed neuro noted ROS Limited/Unobtainable: Yes Condition: critical EKG Rhythm: Sinus Rhythm Residuals: minimal Tube Feeding Tolerated: yes I&O: Intake and Output 03/21/17 03/22/17 19:00 07:00 Intake Total 700 ml 800 ml Output Total 560 ml 1040 ml Balance 140 ml -240 ml Intake Free Water 100 ml 150 ml Tube Feeding 600 ml 600 ml Other 50 ml Output Urine Total 560 ml 1040 ml Critical Care - Objective ET-Tube: 8.0 ET Position: 24 Last 24 Hour Vital Signs Date Time Temp Pulse Resp B/P Pulse Ox O2 Delivery O2 Flow Rate FiO2 03/22/17 11:13 71 27 30 03/22/17 11:00 76 26 145/66 100 Mechanical Ventilator 30 03/22/17 10:00 72 22 151/62 100 Mechanical Ventilator 30 03/22/17 09:57 67 24 100 Mechanical Ventilator 30 03/22/17 09:50 30 03/22/17 09:40 72 20 98 Mechanical Ventilator 30 03/22/17 09:29 72 20 30 03/22/17 09:29 100 03/22/17 09:07 72 164/69 03/22/17 09:00 69 22 164/69 99 Mechanical Ventilator 30 03/22/17 08:00 72 03/22/17 08:00 98.8 68 24 159/68 99 Mechanical Ventilator 30 03/22/17 08:00 30 03/22/17 07:05 79 22 30 03/22/17 07:00 77 23 149/67 99 Mechanical Ventilator 30 03/22/17 06:00 75 22 156/65 98 Mechanical Ventilator 30 03/22/17 05:00 80 22 146/62 99 Mechanical Ventilator 30 03/22/17 04:47 68 19 30 03/22/17 04:00 30 03/22/17 04:00 98.5 71 20 155/90 100 Mechanical Ventilator 30 03/22/17 04:00 69 03/22/17 03:00 69 22 139/59 98 Mechanical Ventilator 30 03/22/17 02:34 70 22 30 03/22/17 02:00 74 22 152/65 98 Mechanical Ventilator 30 03/22/17 01:00 72 22 152/61 98 Mechanical Ventilator 30 03/22/17 00:42 72 16 30 03/22/17 00:00 30 03/22/17 00:00 98.7 79 16 150/65 100 Mechanical Ventilator 30 03/22/17 00:00 79 03/21/17 23:01 70 20 98 Mechanical Ventilator 30 03/21/17 23:00 68 20 30 03/21/17 23:00 69 16 149/69 100 Mechanical Ventilator 30 03/21/17 22:00 73 21 144/61 99 Mechanical Ventilator 30 03/21/17 21:30 70 21 100 Mechanical Ventilator 30 03/21/17 21:04 64 23 30 03/21/17 21:00 68 21 144/61 98 Mechanical Ventilator 30 03/21/17 20:50 69 140/60 03/21/17 20:00 30 03/21/17 20:00 69 03/21/17 20:00 99.3 66 20 140/60 98 Mechanical Ventilator 30 03/21/17 19:00 70 22 160/75 98 Mechanical Ventilator 30 03/21/17 18:58 70 18 30 03/21/17 18:00 73 22 148/66 97 Mechanical Ventilator 30 03/21/17 18:00 73 21 148/66 97 Mechanical Ventilator 30 03/21/17 17:00 76 20 159/62 97 Mechanical Ventilator 30 03/21/17 16:51 68 18 30 03/21/17 16:00 68 03/21/17 16:00 100.1 68 20 134/54 98 Mechanical Ventilator 30 03/21/17 16:00 30 03/21/17 15:00 69 23 139/58 98 Mechanical Ventilator 30 03/21/17 14:35 69 20 30 03/21/17 14:00 67 21 132/57 98 Mechanical Ventilator 30 03/21/17 13:33 99.8 03/21/17 13:24 74 22 30 03/21/17 13:00 66 21 123/53 95 Mechanical Ventilator 30 03/21/17 12:00 100.0 72 26 148/62 100 Mechanical Ventilator 30 03/21/17 12:00 30 03/21/17 12:00 67 Labs: Labs Test 03/20/17 04:00 03/20/17 10:10 03/21/17 10:30 White Blood Count 9.3 K/UL (4.8-10.8) Red Blood Count 3.11 M/UL (4.70-6.10) Hemoglobin 9.1 G/DL (14.2-18.0) Hematocrit 29.0 % (42.0-52.0) Mean Corpuscular Volume 93 FL (80-99) Mean Corpuscular Hemoglobin 29.2 PG (27.0-31.0) Mean Corpuscular Hemoglobin Concent 31.4 G/DL (32.0-36.0) Red Cell Distribution Width 14.5 % (11.6-14.8) Platelet Count 258 K/UL (150-450) Mean Platelet Volume 6.0 FL (6.5-10.1) Neutrophils (%) (Auto) 69.6 % (45.0-75.0) Lymphocytes (%) (Auto) 18.7 % (20.0-45.0) Monocytes (%) (Auto) 8.9 % (1.0-10.0) Eosinophils (%) (Auto) 2.1 % (0.0-3.0) Basophils (%) (Auto) 0.7 % (0.0-2.0) Sodium Level 143 mEQ/L (135-145) Potassium Level 4.4 mEQ/L (3.4-4.9) Chloride Level 109 mEQ/L (98-107) Carbon Dioxide Level 27 mEQ/L (20-30) Anion Gap 7 (5-15) Blood Urea Nitrogen 39 mg/dL (7-23) Creatinine 0.7 mg/dL (0.7-1.2) Estimat Glomerular Filtration Rate mL/min (>60) Glucose Level 193 mg/dL (74-106) Calcium Level 8.2 mg/dL (8.6-10.2) Phosphorus Level 2.2 mg/dL (2.5-4.8) Magnesium Level 1.7 mg/dL (1.7-2.5) Total Bilirubin 0.4 mg/dL (0.0-1.2) Aspartate Amino Transf (AST/SGOT) 16 U/L (5-40) Alanine Aminotransferase (ALT/SGPT) 23 U/L (3-41) Alkaline Phosphatase 106 U/L (40-129) Pro-B-Type Natriuretic Peptide 68377 pg/mL (0-450) Total Protein 6.1 g/dL (6.6-8.7) Albumin 2.1 g/dL (3.5-5.2) Globulin 4.0 g/dL Albumin/Globulin Ratio 0.5 (1.0-2.7) Arterial Blood pH 7.383 (7.350-7.450) 7.260 (7.350-7.450) Arterial Blood Partial Pressure CO2 46.7 mmHg (35.0-45.0) 61.5 mmHg (35.0-45.0) Arterial Blood Partial Pressure O2 93.8 mmHg (75.0-100.0) 73.8 mmHg (75.0-100.0) Arterial Blood HCO3 27.2 mmol/L (22.0-26.0) 27.3 mmol/L (22.0-26.0) Arterial Blood Oxygen Saturation 96.4 % (92.0-98.0) 92.5 % (92.0-98.0) Arterial Blood Base Excess 1.7 -0.6 Yosvany Test Positive Positive Objective: GENERAL: The patient is sedated on the ventilator NAD HEENT: Oropharynx is moist. Gag present. NECK: Supple. Carotids 2+. LUNGS: Coarse breath sounds and symmetric. No wheezes but noted scattered rhonchi. CARDIAC: S1 and S2. Regular rate and rhythm. Soft at the parasternal border. No rubs or gallops. ABDOMEN: Soft and nontender. No distention. no HSM; GT EXTREMITIES: No cyanosis. No clubbing. No edema. left heel wound NEUROLOGIC: Grossly nonfocal. still withdrawn reviewed and edited Accucheck: 222 REJI OJEDA Mar 22, 2017 11:47
--- NOTE | 2017-03-22 19:17 | General Progress Note ---
Assessment/Plan Problem List: (1) Shock ICD Codes: R57.9 - Shock, unspecified SNOMED: 31486732 (2) toxic metabo (3) toxic metabolic encephalopathy 2/2 infecion/metabolc derangement (4) Respiratory failure ICD Codes: J96.90 - Respiratory failure, unspecified, unspecified whether with hypoxia or hypercapnia SNOMED: 731844586 Qualifiers: Qualified Codes: J96.01 - Acute respiratory failure with hypoxia (5) Renal insufficiency ICD Codes: N28.9 - Disorder of kidney and ureter, unspecified SNOMED: 420288726, 642578196 (6) UTI (urinary tract infection) ICD Codes: N39.0 - Urinary tract infection, site not specified SNOMED: 26537701 Qualifiers: Qualified Codes: T83.511A - Infection and inflammatory reaction due to indwelling urethral catheter, initial encounter; N39.0 - Urinary tract infection , site not specified (7) Pneumonia ICD Codes: J18.9 - Pneumonia, unspecified organism SNOMED: 319813181 Qualifiers: Qualified Codes: J18.9 - Pneumonia, unspecified organism (8) Severe sepsis ICD Codes: A41.9 - Sepsis, unspecified organism; R65.20 - Severe sepsis without septic shock SNOMED: 95171284 Status: stable, not improved, unchanged Assessment/Plan iv abx follow up cultures wean vent monitor labs laxatives critical and guarded neuro appreciated proceed with trach poc d/.w Subjective ROS Limited/Unobtainable: Yes Constitutional: Reports: malaise, weakness HEENT: Reports: no symptoms Cardiovascular: Reports: no symptoms Respiratory: Reports: SOB at rest, sputum Gastrointestinal/Abdominal: Reports: difficulty swallowing Neurologic/Psychiatric: Reports: pre-existing deficit Endocrine: Reports: no symptoms Hematologic/Lymphatic: Reports: anemia Allergies: Coded Allergies: No Known Allergies (Unverified , 01/07/17) All Systems: reviewed and negative except above Subjective no overnight events. off pressors. still with significant secretions. still poorly responsive. head ct negative. d/w neuro. anoxic event suspected. EEG results noted. Objective Last 24 Hour Vital Signs Date Time Temp Pulse Resp B/P Pulse Ox O2 Delivery O2 Flow Rate FiO2 03/22/17 19:00 74 23 134/52 97 Mechanical Ventilator 30 03/22/17 18:54 72 26 30 7/16/17 18:00 68 22 143/58 97 Mechanical Ventilator 30 7/ 17:08 66 24 30 716/17 17:00 66 24 120/59 97 Mechanical Ventilator 30 716/17 16:00 30 16/17 16:00 98.9 68 20 143/60 98 Mechanical Ventilator 30 716/17 16:00 70 16/17 15:22 78 26 30 03/22/17 15:00 64 23 120/46 96 Mechanical Ventilator 30 03/22/ 14:00 64 24 127/45 96 Mechanical Ventilator 30 7/ 13:26 74 28 30 16/17 13:00 68 23 123/50 100 Mechanical Ventilator 30 03/22/ 12:00 66 03/22/17 12:00 98.6 67 25 146/58 100 Mechanical Ventilator 30 03/22/17 11:13 71 27 30 03/22/ 11:00 76 26 145/66 100 Mechanical Ventilator 30 03/22/17 10:00 72 22 151/62 100 Mechanical Ventilator 30 03/22/17 09:57 67 24 100 Mechanical Ventilator 30 03/22/17 09:50 30 03/22/ 09:40 72 20 98 Mechanical Ventilator 30 03/22/ 09:29 72 20 30 03/22/ 09:29 100 03/22/ 09:07 72 164/69 03/22/17 09:00 69 22 164/69 99 Mechanical Ventilator 30 03/22/17 08:00 72 03/22/17 08:00 98.8 68 24 159/68 99 Mechanical Ventilator 30 03/22/17 08:00 30 03/22/17 07:05 79 22 30 03/22/17 07:00 77 23 149/67 99 Mechanical Ventilator 30 03/22/17 06:00 75 22 156/65 98 Mechanical Ventilator 30 03/22/ 05:00 80 22 146/62 99 Mechanical Ventilator 30 03/22/ 04:47 68 19 30 03/22/17 04:00 30 03/22/17 04:00 98.5 71 20 155/90 100 Mechanical Ventilator 30 03/22/ 04:00 69 03/22/17 03:00 69 22 139/59 98 Mechanical Ventilator 30 03/22/17 02:34 70 22 30 7/ 02:00 74 22 152/65 98 Mechanical Ventilator 30 03/22/17 01:00 72 22 152/61 98 Mechanical Ventilator 30 03/22/17 00:42 72 16 30 03/22/17 00:00 30 03/22/17 00:00 98.7 79 16 150/65 100 Mechanical Ventilator 30 03/22/17 00:00 79 03/21/17 23:01 70 20 98 Mechanical Ventilator 30 03/21/17 23:00 68 20 30 03/21/17 23:00 69 16 149/69 100 Mechanical Ventilator 30 03/21/17 22:00 73 21 144/61 99 Mechanical Ventilator 30 03/21/17 21:30 70 21 100 Mechanical Ventilator 30 03/21/17 21:04 64 23 30 03/21/17 21:00 68 21 144/61 98 Mechanical Ventilator 30 03/21/17 20:50 69 140/60 03/21/17 20:00 30 03/21/17 20:00 69 03/21/17 20:00 99.3 66 20 140/60 98 Mechanical Ventilator 30 Intake and Output 03/21/17 03/22/17 19:00 07:00 Intake Total 700 ml 800 ml Output Total 560 ml 1040 ml Balance 140 ml -240 ml Intake Free Water 100 ml 150 ml Tube Feeding 600 ml 600 ml Other 50 ml Output Urine Total 560 ml 1040 ml Height (Feet): 6 Weight (Pounds): 182 Objective General Appearance: WD/WN, lethargic, confused Neck: supple Cardiovascular: regular rhythm Respiratory/Chest: lungs clear Abdomen: normal bowel sounds, non tender, soft, no organomegaly Edema: no edema noted Arm (L), no edema noted Arm (R), no edema noted Leg (L), no edema noted Leg (R), no edema noted Pedal (L), no edema noted Pedal (R), no edema noted Generalized Neurologic: disoriented, unresponsive Skin: normal pigmentation WENDIE CASTELLANOS Mar 22, 2017 19:17
[2017-03-22] MEDS: Dyna-Hex 2% Top Sol 8oz TOPIC SCH (21:01)
[2017-03-22] MEDS: Docusate 100mg/10ml Liq GT PRN (22:43)
[2017-03-23] VITALS (23 sets, daily range): BP systolic 95–156; BP diastolic 43–66
[2017-03-23] MEDS: Gentamicin for inhalation INH SCH ×3 (00:12→21:14)
[2017-03-23 05:22] LABS: BASOPHILS % (AUTO) 0.5 % (0.0-2.0); EOSINOPHILS % (AUTO) 0.7 % (0.0-3.0); LYMPHOCYTES % (AUTO) 16.9 % (20.0-45.0); MEAN CORPUSCULAR HEMOGLOBIN 29.3 PG (27.0-31.0); MEAN CORPUSCULAR HGB CONC 31.3 G/DL (32.0-36.0); MEAN CORPUSCULAR VOLUME 94 FL (80-99); PLATELET COUNT 363 K/UL (150-450); RED BLOOD COUNT 3.49 M/UL (4.70-6.10); RED CELL DISTRIBUTION WIDTH 14.8 % (11.6-14.8)
--- NOTE | 2017-03-23 05:45 | Progress Note ---
DATE: 03/22/2017 CARDIOLOGY PROGRESS NOTE SUBJECTIVE: The patient remains on ventilator support. Failing weaning efforts. Blood pressure is stabilized. Monitored rhythm remains with atrial fibrillation and demand pacing. EEG is suggestive of anoxic event. OBJECTIVE: VITAL SIGNS: Blood pressure 141/66, pulse 69, respiratory rate 22, and afebrile. NECK: Thin secretions from ET tube. LUNGS: Bilateral breath sounds with rhonchi. HEART: Irregularly irregular rhythm. Normal S1, and paradoxically split S2. ABDOMEN: Soft. EXTREMITIES: No edema. LABORATORY DATA: ABG, 7.26, 61 and 74. IMPRESSION: 1. Respiratory failure. 2. Acute on chronic respiratory acidosis. 3. Anemia status post transfusion. 4. Acute on chronic diastolic congestive heart failure. 5. Severe protein-calorie malnutrition. 6. Permanent pacemaker. 7. Paroxysmal atrial fibrillation. 8. Hypomagnesemia. 9. Hypophosphatemia. PLAN: 1. Replacement of electrolytes. 2. Protein supplement. 3. Continue weaning efforts for trach. 4. Diuresis. 5. Titrate anti-failure regimen. 6. Transfuse for hemoglobin less than 8 g. 7. Respiratory hygiene. 8. Bronchodilators. 9. Antibiotics per Infectious Disease business process consultant. Stanislav Jain M.D. DR: SANDEEP JOB#: [id number] CC:
[2017-03-23] MEDS: NovoLOG Insulin Flexpen SUBQ SCH ×3 (05:56→17:55)
[2017-03-23 06:13] LABS: MAGNESIUM 1.8 mg/dL (1.7-2.5); PHOSPHORUS 4.6 mg/dL (2.5-4.8)
[2017-03-23 06:15] LABS: ALANINE AMINOTRANSFERASE 16 U/L (3-41); ALBUMIN/GLOBULIN RATIO 0.4 (1.0-2.7); ANION GAP 5 (5-15); ASPARTATE AMINO TRANSFERASE 15 U/L (5-40); CALCIUM 8.6 mg/dL (8.6-10.2); CARBON DIOXIDE 33 mEQ/L (20-30); CHLORIDE 106 mEQ/L (98-107); CREATININE 0.8 mg/dL (0.7-1.2); HEMOLYSIS 2; POTASSIUM 5.7 mEQ/L (3.4-4.9); SODIUM 144 mEQ/L (135-145)
--- NOTE | 2017-03-23 06:47 | Infectious Diseases Prog Note ---
Assessment/Plan Assessment/Plan A 1. Leukocytosis 2. MDR Klebsiella & Acinetobacter pneumonia 3. septic shock resolved 4. respiratory failure 5. leucocytosis resolved 6. DM 7. Encephalopathy 8. multiple pressure ulcers P 1. discontinue fluconazole 2. Continue Gentamicin inhaler & Bactrim 3. repeat CXR, UA & UC 4. add Minocycline Subjective Constitutional: Reports: other - afebrile Gastrointestinal/Abdominal: Reports: other - no diarrhea Allergies: Coded Allergies: No Known Allergies (Unverified , 01/07/17) Objective Vital Signs Last 24 Hour Vital Signs Date Time Temp Pulse Resp B/P Pulse Ox O2 Delivery O2 Flow Rate FiO2 03/23/17 06:00 71 19 127/52 97 Mechanical Ventilator 30 03/23/17 05:00 73 19 95/43 96 Mechanical Ventilator 30 03/23/17 04:41 82 21 30 03/23/17 04:00 97.9 71 26 152/59 95 Mechanical Ventilator 30 03/23/17 04:00 77 03/23/17 04:00 30 03/23/17 03:05 72 27 30 03/23/17 03:00 68 21 140/63 96 Mechanical Ventilator 30 03/23/17 02:00 73 23 144/60 97 Mechanical Ventilator 30 03/23/17 01:00 68 23 143/64 97 Mechanical Ventilator 30 03/23/17 00:33 80 26 30 03/23/17 00:15 71 21 100 Mechanical Ventilator 30 03/23/17 00:14 65 24 98 Mechanical Ventilator 30 03/23/17 00:14 30 03/23/17 00:00 98.5 69 22 141/66 97 Mechanical Ventilator 30 03/23/17 00:00 71 03/23/17 00:00 30 03/22/17 23:06 65 25 30 03/22/17 23:02 Mechanical Ventilator 03/22/17 23:01 30 03/22/17 23:00 Mechanical Ventilator 03/22/17 23:00 69 23 150/60 98 Mechanical Ventilator 30 03/22/17 22:00 69 23 130/54 97 Mechanical Ventilator 30 03/22/17 21:00 68 24 123/52 98 Mechanical Ventilator 30 03/22/17 21:00 68 123/52 03/22/17 20:58 69 25 30 03/22/17 20:00 69 03/22/17 20:00 98.7 69 23 123/52 96 Mechanical Ventilator 30 03/22/17 20:00 30 03/22/17 19:00 74 23 134/52 97 Mechanical Ventilator 30 03/22/17 18:54 72 26 30 03/22/17 18:00 68 22 143/58 97 Mechanical Ventilator 30 03/22/17 17:08 66 24 30 03/22/17 17:00 66 24 120/59 97 Mechanical Ventilator 30 03/22/17 16:00 30 03/22/17 16:00 98.9 68 20 143/60 98 Mechanical Ventilator 30 03/22/17 16:00 70 03/22/17 15:22 78 26 30 03/22/17 15:00 64 23 120/46 96 Mechanical Ventilator 30 03/22/17 14:00 64 24 127/45 96 Mechanical Ventilator 30 03/22/17 13:26 74 28 30 03/22/17 13:00 68 23 123/50 100 Mechanical Ventilator 30 03/22/17 12:00 66 03/22/17 12:00 98.6 67 25 146/58 100 Mechanical Ventilator 30 03/22/17 11:13 71 27 30 03/22/17 11:00 76 26 145/66 100 Mechanical Ventilator 30 03/22/17 10:00 72 22 151/62 100 Mechanical Ventilator 30 03/22/17 09:57 67 24 100 Mechanical Ventilator 30 03/22/17 09:50 30 03/22/17 09:40 72 20 98 Mechanical Ventilator 30 03/22/17 09:29 72 20 30 03/22/17 09:29 100 03/22/17 09:07 72 164/69 03/22/17 09:00 69 22 164/69 99 Mechanical Ventilator 30 03/22/17 08:00 72 03/22/17 08:00 98.8 68 24 159/68 99 Mechanical Ventilator 30 03/22/17 08:00 30 03/22/17 07:05 79 22 30 03/22/17 07:00 77 23 149/67 99 Mechanical Ventilator 30 Height (Feet): 6 Weight (Pounds): 182 General Appearance: no acute distress HEENT: other - orally intubated Respiratory/Chest: rhonchi - bilaterally, other - on ventilator Cardiovascular: normal rate Abdomen: soft, non tender, other - tube feeding Genitourinary: other - scrotal edema, Banda catheter Extremities: other - R arm PICC line, edema more in arms Neurologic/Psychiatric: other - opens eyes Laboratory Tests Test 03/23/17 04:00 White Blood Count 17.0 K/UL (4.8-10.8) H Red Blood Count 3.49 M/UL (4.70-6.10) L Hemoglobin 10.2 G/DL (14.2-18.0) L Hematocrit 32.7 % (42.0-52.0) L Mean Corpuscular Volume 94 FL (80-99) Mean Corpuscular Hemoglobin 29.3 PG (27.0-31.0) Mean Corpuscular Hemoglobin Concent 31.3 G/DL (32.0-36.0) L Red Cell Distribution Width 14.8 % (11.6-14.8) Platelet Count 363 K/UL (150-450) Mean Platelet Volume 6.0 FL (6.5-10.1) L Neutrophils (%) (Auto) 78.0 % (45.0-75.0) H Lymphocytes (%) (Auto) 16.9 % (20.0-45.0) L Monocytes (%) (Auto) 4.0 % (1.0-10.0) Eosinophils (%) (Auto) 0.7 % (0.0-3.0) Basophils (%) (Auto) 0.5 % (0.0-2.0) Sodium Level 144 mEQ/L (135-145) Potassium Level 5.7 mEQ/L (3.4-4.9) H Chloride Level 106 mEQ/L (98-107) Carbon Dioxide Level 33 mEQ/L (20-30) H Anion Gap 5 (5-15) Blood Urea Nitrogen 37 mg/dL (7-23) H Creatinine 0.8 mg/dL (0.7-1.2) Estimat Glomerular Filtration Rate mL/min (>60) Glucose Level 208 mg/dL (74-106) H Calcium Level 8.6 mg/dL (8.6-10.2) Phosphorus Level 4.6 mg/dL (2.5-4.8) Magnesium Level 1.8 mg/dL (1.7-2.5) Total Bilirubin 0.4 mg/dL (0.0-1.2) Aspartate Amino Transf (AST/SGOT) 15 U/L (5-40) Alanine Aminotransferase (ALT/SGPT) 16 U/L (3-41) Alkaline Phosphatase 91 U/L (40-129) Pro-B-Type Natriuretic Peptide 51464 pg/mL (0-450) H Total Protein 7.0 g/dL (6.6-8.7) Albumin 2.2 g/dL (3.5-5.2) L Globulin 4.8 g/dL Albumin/Globulin Ratio 0.4 (1.0-2.7) L Current Medications Medications (Trade) Dose Ordered Sig/Subhash Route PRN Reason Start Time Stop Time Status Last Admin Dose Admin Acetaminophen (Tylenol) 650 mg Q4H PRN ORAL Mild Pain/Temp > 100.5 03/13/17 21:15 04/12/17 21:14 03/21/17 12:34 Al Hydroxide/Mg Hydroxide (Mylanta) 30 ml EVERY 4 HOURS PRN GT heartburn 03/14/17 01:00 04/13/17 00:59 Ascorbic Acid (Vitamin C) 500 mg DAILY GT 03/16/17 11:05 04/14/17 08:59 03/22/17 09:07 Atorvastatin Calcium (Lipitor) 10 mg BEDTIME GT 03/14/17 21:00 04/13/17 20:59 03/22/17 21:00 Chlorhexidine Gluconate (Laura-Hex 2%) 1 applic QHS TOPIC 03/15/17 21:00 04/14/17 20:59 03/22/17 21:01 Dextrose (Dextrose 50%) STAT PRN IV Hypoglycemia 03/13/17 19:45 04/12/17 19:44 Docusate Sodium (Colace) 250 mg BEDTIME PRN GT Constipation 03/14/17 01:45 04/13/17 01:44 03/22/17 22:43 Ferrous Sulfate (Feosol) 325 mg DAILY GT 03/14/17 09:00 04/13/17 08:59 03/22/17 09:07 Finasteride (Proscar) 5 mg DAILY GT 03/14/17 09:00 04/13/17 08:59 03/22/17 09:07 Fluconazole (Diflucan) 100 mg DAILY GT 03/20/17 12:36 03/24/17 12:59 03/22/17 09:07 Gentamicin Sulfate (Gentamicin vial) 300 mg Q12HR@10,22 INH 03/20/17 10:30 03/27/17 10:29 03/23/17 00:12 Heparin Sodium (Porcine) (Heparin 5000 units/ml) 5,000 units EVERY 12 HOURS SUBQ 03/14/17 09:00 04/13/17 08:59 03/22/17 21:02 Insulin Aspart (NovoLOG) EVERY 6 HOURS SUBQ 03/14/17 06:00 04/13/17 05:59 03/23/17 05:56 Lansoprazole (Prevacid) 30 mg DAILY GT 03/14/17 09:00 04/13/17 08:59 03/22/17 09:07 Lorazepam (Ativan 2mg/ml 1ml) 1 mg Q4H PRN IV For Anxiety 03/16/17 09:00 03/23/17 08:59 03/19/17 09:56 Magnesium Hydroxide (Mom) 30 ml DAILYPRN PRN GT Constipation 03/20/17 12:36 04/17/17 08:29 03/22/17 09:06 Metoprolol Tartrate (Lopressor) 50 mg Q12HR ORAL 03/23/17 09:00 04/22/17 08:59 Phosphorus (Phospha 250 Neutral) 250 mg THREE TIMES A DAY ORAL 03/19/17 15:00 04/18/17 14:59 03/22/17 17:58 Sitagliptin Phosphate (Januvia) 50 mg DAILY GT 03/14/17 09:00 04/13/17 08:59 03/22/17 09:07 Tamsulosin HCl (Flomax) 0.4 mg DAILY GT 03/14/17 09:00 04/13/17 08:59 03/22/17 09:07 Trimethoprim/ Sulfamethoxazole (Bactrim-DS) 20 ml EVERY 12 HOURS PEG 03/19/17 12:00 03/26/17 11:59 03/22/17 21:00 Zolpidem Tartrate (Ambien) 5 mg HSPRN PRN GT Insomnia 03/14/17 01:00 04/13/17 00:59 ABDOULAYE ALFONSO Mar 23, 2017 06:47
--- NOTE | 2017-03-23 08:00 | Critical Care Progress Note ---
Assessment/Plan Assessment/Plan 1. Respiratory failure 2. Chronic renal failure. 3. Anemia. 4. Leukocytosis- now worse 5. Unstageable left heel ulcer, chronic with Kleb 6. Acute on chronic encephalopathy. 7. Gastrostomy tube 8. Aspiration. 9. Paroxysmal atrial fibrillation. 10. Permanent pacemaker. 11. History of Klebsiella urinary tract infection. 12. Failure to thrive 13. Hypertension. 14. Diabetes mellitus. 15. lactic acidosis 16. KPC 17. hyperkalemia PLAN care noted and reviewed exam without change surgery for trach; defer to am IV antibiotics reviewed ID aware of KPC and now with increased wbc monitor renal function monitor K respiratory care as outlined not safe to extubate Ventilatory care noted SNF meds supportive care as outlined suction as needed nutrition tolerated with tube feeds; has GT oxygen therapy and titrate prognosis guarded proceed with trach in am family aware medications/laboratory data/nursing notes/ICU care reviewed in detail note reviewed and edited care discussed with RN and RT ICU time spent 38 minutes Critical Care - Subjective Interval Events: planned for trach K5.7 - cancelled care noted d/w surgery and nursing ROS Limited/Unobtainable: Yes Condition: critical EKG Rhythm: Sinus Rhythm Residuals: minimal Tube Feeding Tolerated: yes I&O: Intake and Output 03/22/17 03/23/17 19:00 07:00 Intake Total 850 ml 750 ml Output Total 920 ml 1230 ml Balance -70 ml -480 ml Intake Free Water 150 ml 50 ml Tube Feeding 600 ml 600 ml Other 100 ml 100 ml Output Urine Total 920 ml 1230 ml # Bowel Movements 2 Critical Care - Objective ET-Tube: 8.0 ET Position: 24 Last 24 Hour Vital Signs Date Time Temp Pulse Resp B/P Pulse Ox O2 Delivery O2 Flow Rate FiO2 03/23/17 07:00 72 19 125/64 98 Mechanical Ventilator 03/23/17 06:34 80 18 30 03/23/17 06:00 71 19 127/52 97 Mechanical Ventilator 03/23/17 05:00 73 19 95/43 96 Mechanical Ventilator 03/23/17 04:41 82 21 30 03/23/17 04:00 97.9 71 26 152/59 95 Mechanical Ventilator 03/23/17 04:00 77 03/23/17 04:00 30 03/23/17 03:05 72 27 30 03/23/17 03:00 68 21 140/63 96 Mechanical Ventilator 30 03/23/17 02:00 73 23 144/60 97 Mechanical Ventilator 30 03/23/17 01:00 68 23 143/64 97 Mechanical Ventilator 30 03/23/17 00:33 80 26 30 03/23/17 00:15 71 21 100 Mechanical Ventilator 30 03/23/17 00:14 65 24 98 Mechanical Ventilator 30 03/23/17 00:14 30 03/23/17 00:00 98.5 69 22 141/66 97 Mechanical Ventilator 30 03/23/17 00:00 71 03/23/17 00:00 30 03/22/17 23:06 65 25 30 03/22/17 23:02 Mechanical Ventilator 03/22/17 23:01 30 03/22/17 23:00 Mechanical Ventilator 03/22/17 23:00 69 23 150/60 98 Mechanical Ventilator 30 03/22/17 22:00 69 23 130/54 97 Mechanical Ventilator 30 03/22/17 21:00 68 24 123/52 98 Mechanical Ventilator 30 03/22/17 21:00 68 123/52 03/22/17 20:58 69 25 30 03/22/17 20:00 69 03/22/17 20:00 98.7 69 23 123/52 96 Mechanical Ventilator 30 03/22/17 20:00 30 03/22/17 19:00 74 23 134/52 97 Mechanical Ventilator 30 03/22/17 18:54 72 26 30 03/22/17 18:00 68 22 143/58 97 Mechanical Ventilator 30 03/22/17 17:08 66 24 30 03/22/17 17:00 66 24 120/59 97 Mechanical Ventilator 30 03/22/17 16:00 30 03/22/17 16:00 98.9 68 20 143/60 98 Mechanical Ventilator 30 03/22/17 16:00 70 16/17 15:22 78 26 30 16/17 15:00 64 23 120/46 96 Mechanical Ventilator 30 03/22/17 14:00 64 24 127/45 96 Mechanical Ventilator 30 03/22/17 13:26 74 28 30 03/22/17 13:00 68 23 123/50 100 Mechanical Ventilator 30 16/17 12:00 66 03/22/17 12:00 98.6 67 25 146/58 100 Mechanical Ventilator 30 03/22/17 11:13 71 27 30 03/22/17 11:00 76 26 145/66 100 Mechanical Ventilator 30 03/22/17 10:00 72 22 151/62 100 Mechanical Ventilator 30 03/22/17 09:57 67 24 100 Mechanical Ventilator 30 03/22/17 09:50 30 03/22/17 09:40 72 20 98 Mechanical Ventilator 30 03/22/17 09:29 72 20 30 03/22/17 09:29 100 03/22/17 09:07 72 164/69 03/22/17 09:00 69 22 164/69 99 Mechanical Ventilator 30 03/22/17 08:00 72 03/22/17 08:00 98.8 68 24 159/68 99 Mechanical Ventilator 30 03/22/17 08:00 30 Labs: Laboratory Tests Test 03/23/17 04:00 White Blood Count 17.0 K/UL (4.8-10.8) H Red Blood Count 3.49 M/UL (4.70-6.10) L Hemoglobin 10.2 G/DL (14.2-18.0) L Hematocrit 32.7 % (42.0-52.0) L Mean Corpuscular Volume 94 FL (80-99) Mean Corpuscular Hemoglobin 29.3 PG (27.0-31.0) Mean Corpuscular Hemoglobin Concent 31.3 G/DL (32.0-36.0) L Red Cell Distribution Width 14.8 % (11.6-14.8) Platelet Count 363 K/UL (150-450) Mean Platelet Volume 6.0 FL (6.5-10.1) L Neutrophils (%) (Auto) 78.0 % (45.0-75.0) H Lymphocytes (%) (Auto) 16.9 % (20.0-45.0) L Monocytes (%) (Auto) 4.0 % (1.0-10.0) Eosinophils (%) (Auto) 0.7 % (0.0-3.0) Basophils (%) (Auto) 0.5 % (0.0-2.0) Sodium Level 144 mEQ/L (135-145) Potassium Level 5.7 mEQ/L (3.4-4.9) H Chloride Level 106 mEQ/L (98-107) Carbon Dioxide Level 33 mEQ/L (20-30) H Anion Gap 5 (5-15) Blood Urea Nitrogen 37 mg/dL (7-23) H Creatinine 0.8 mg/dL (0.7-1.2) Estimat Glomerular Filtration Rate mL/min (>60) Glucose Level 208 mg/dL (74-106) H Calcium Level 8.6 mg/dL (8.6-10.2) Phosphorus Level 4.6 mg/dL (2.5-4.8) Magnesium Level 1.8 mg/dL (1.7-2.5) Total Bilirubin 0.4 mg/dL (0.0-1.2) Aspartate Amino Transf (AST/SGOT) 15 U/L (5-40) Alanine Aminotransferase (ALT/SGPT) 16 U/L (3-41) Alkaline Phosphatase 91 U/L (40-129) Pro-B-Type Natriuretic Peptide 96811 pg/mL (0-450) H Total Protein 7.0 g/dL (6.6-8.7) Albumin 2.2 g/dL (3.5-5.2) L Globulin 4.8 g/dL Albumin/Globulin Ratio 0.4 (1.0-2.7) L Objective: GENERAL: The patient is sedated on the ventilator NAD HEENT: Oropharynx is moist. Gag present. NECK: Supple. Carotids 2+. LUNGS: stable breath sounds and symmetric. No wheezes but noted scattered rhonchi. CARDIAC: S1 and S2. Regular rate and rhythm. Soft at the parasternal border. No rubs or gallops. ABDOMEN: Soft and nontender. No distention. no HSM; GT EXTREMITIES: No cyanosis. No clubbing. No edema. left heel wound NEUROLOGIC: Grossly nonfocal. still withdrawn reviewed and edited Accucheck: 219 REJI OJEDA Mar 23, 2017 08:00
[2017-03-23 08:04] LABS: KETONES,URINE NEGATIVE (NEGATIVE); LEUKOCYTE ESTERASE ,URINE 1+ (NEGATIVE); NITRITE,URINE NEGATIVE (NEGATIVE); PH,URINE 6 (4.5-8.0); PROTEIN,URINE 1+ (NEGATIVE); UROBILINOGEN,URINE NORMAL MG/DL (0.0-1.0)
[2017-03-23 08:05] LABS: APPEARANCE,URINE CLEAR
[2017-03-23 08:24] LABS: BACTERIA,URINE FEW /HPF; SQUAMOUS EPITHELIAL CELL,UR FEW /LPF (NONE/OCC); YEAST,URINE FEW /HPF
[2017-03-23] MEDS: Metoprolol 25mg tab ORAL SCH ×2 (08:30→21:07)
[2017-03-23] MEDS: sitaGLIPtin 25mg tab GT SCH (08:30)
[2017-03-23] MEDS: Phospha 250 Neutral tab ORAL SCH ×3 (08:30→17:55)
[2017-03-23] MEDS: Doxycycline 100mg in D5W 110ml IV SCH ×2 (08:30→21:12)
[2017-03-23] MEDS: Bactrim Susp 20ml PEG SCH ×2 (08:30→21:07)
[2017-03-23] MEDS: Tamsulosin 0.4mg cap GT SCH (08:30)
[2017-03-23] MEDS: Ascorbic Acid 500mg tab GT SCH (08:30)
[2017-03-23] MEDS: Ferrous Sulfate 300 MG/5 ML UDC GT SCH (08:31)
[2017-03-23] MEDS: Heparin 5000 units/ml inj SUBQ SCH ×2 (08:32→21:08)
[2017-03-23] MEDS ORDERED: MINOCYCLINE 50MG CAP ORAL SCH (09:00)
[2017-03-23] MEDS ORDERED: Sodium Polystyrene Sulfonate 15gm Powder ORAL ONE (09:00)
--- NOTE | 2017-03-23 13:28 | Diagnostic Imaging Report ---
Indication: Dyspnea Comparison: 03/19/17 A single view chest radiograph was obtained. Findings: Interstitial edema and vascular prominence noted. Borderline cardiomegaly is present. Tubes and lines are stable. Impression: No meter changes records clerk the last few days. Interstitial edema/CHF demonstrated. Tubes and lines stable.
--- NOTE | 2017-03-23 14:35 | General Progress Note ---
Assessment/Plan Problem List: (1) Shock ICD Codes: R57.9 - Shock, unspecified SNOMED: 97348623 (2) toxic metabo (3) toxic metabolic encephalopathy 2/2 infecion/metabolc derangement (4) Respiratory failure ICD Codes: J96.90 - Respiratory failure, unspecified, unspecified whether with hypoxia or hypercapnia SNOMED: 298997366 Qualifiers: Qualified Codes: J96.01 - Acute respiratory failure with hypoxia (5) Renal insufficiency ICD Codes: N28.9 - Disorder of kidney and ureter, unspecified SNOMED: 696268032, 899056249 (6) UTI (urinary tract infection) ICD Codes: N39.0 - Urinary tract infection, site not specified SNOMED: 00881201 Qualifiers: Qualified Codes: T83.511A - Infection and inflammatory reaction due to indwelling urethral catheter, initial encounter; N39.0 - Urinary tract infection , site not specified (7) Pneumonia ICD Codes: J18.9 - Pneumonia, unspecified organism SNOMED: 859631298 Qualifiers: Qualified Codes: J18.9 - Pneumonia, unspecified organism (8) Severe sepsis ICD Codes: A41.9 - Sepsis, unspecified organism; R65.20 - Severe sepsis without septic shock SNOMED: 43989397 (9) Pressure ulcer, heel ICD Codes: L89.609 - Pressure ulcer of unspecified heel, unspecified stage SNOMED: 505701356 (10) Pacemaker ICD Codes: Z95.0 - Presence of cardiac pacemaker SNOMED: 935563796, 661414275 (11) Malnutrition ICD Codes: E46 - Unspecified protein-calorie malnutrition SNOMED: 5454984 Status: stable, progressing Assessment/Plan iv abx follow up repeat cultures monitor wbc wean vent as able gt feeds kayexylate for elevated k monitor labs laxatives wound care critical and guarded neuro appreciated proceed with trach poc d/.w Subjective ROS Limited/Unobtainable: Yes Constitutional: Reports: malaise, weakness HEENT: Reports: no symptoms Cardiovascular: Reports: edema Respiratory: Reports: cough, shortness of breath, sputum Gastrointestinal/Abdominal: Reports: difficulty swallowing Genitourinary: Reports: no symptoms Neurologic/Psychiatric: Reports: pre-existing deficit Endocrine: Reports: no symptoms Hematologic/Lymphatic: Reports: anemia Allergies: Coded Allergies: No Known Allergies (Unverified , 01/07/17) All Systems: reviewed and negative except above Subjective no overnight events. off pressors. still with significant secretions. still poorly responsive. head ct negative. opens eyes with stimulation but does not track or follow commands. elevated K noted. consent for trach obtained. Objective Last 24 Hour Vital Signs Date Time Temp Pulse Resp B/P Pulse Ox O2 Delivery O2 Flow Rate FiO2 03/23/17 13:00 69 18 149/57 98 Mechanical Ventilator 30 03/23/17 12:55 71 19 30 03/23/17 12:00 99.1 70 20 134/56 98 Mechanical Ventilator 30 03/23/17 12:00 67 03/23/17 10:47 77 16 100 Mechanical Ventilator 30 03/23/17 10:30 77 16 100 Mechanical Ventilator 30 03/23/17 10:30 30 03/23/17 10:30 79 16 30 03/23/17 10:00 69 20 127/52 98 Mechanical Ventilator 30 03/23/17 09:16 76 16 30 03/23/17 09:15 30 03/23/17 09:00 75 19 115/51 98 Mechanical Ventilator 30 03/23/17 08:30 74 115/51 03/23/17 08:00 74 03/23/17 08:00 98.2 71 18 115/51 96 Mechanical Ventilator 30 03/23/17 08:00 30 03/23/17 07:00 72 19 125/64 98 Mechanical Ventilator 30 03/23/17 06:34 80 18 30 03/23/17 06:00 71 19 127/52 97 Mechanical Ventilator 03/23/17 05:00 73 19 95/43 96 Mechanical Ventilator 30 03/23/17 04:41 82 21 30 03/23/17 04:00 97.9 71 26 152/59 95 Mechanical Ventilator 30 03/23/17 04:00 77 03/23/17 04:00 30 03/23/17 03:05 72 27 30 03/23/17 03:00 68 21 140/63 96 Mechanical Ventilator 30 03/23/17 02:00 73 23 144/60 97 Mechanical Ventilator 30 03/23/17 01:00 68 23 143/64 97 Mechanical Ventilator 03/23/17 00:33 80 26 30 03/23/17 00:15 71 21 100 Mechanical Ventilator 30 03/23/17 00:14 65 24 98 Mechanical Ventilator 30 03/23/17 00:14 30 03/23/17 00:00 98.5 69 22 141/66 97 Mechanical Ventilator 30 03/23/17 00:00 71 03/23/17 00:00 30 03/22/17 23:06 65 25 30 03/22/17 23:02 Mechanical Ventilator 03/22/17 23:01 30 03/22/17 23:00 Mechanical Ventilator 03/22/17 23:00 69 23 150/60 98 Mechanical Ventilator 30 03/22/17 22:00 69 23 130/54 97 Mechanical Ventilator 30 03/22/17 21:00 68 24 123/52 98 Mechanical Ventilator 30 03/22/17 21:00 68 123/52 03/22/17 20:58 69 25 30 03/22/17 20:00 69 03/22/17 20:00 98.7 69 23 123/52 96 Mechanical Ventilator 30 03/22/17 20:00 30 03/22/17 19:00 74 23 134/52 97 Mechanical Ventilator 30 03/22/17 18:54 72 26 30 03/22/17 18:00 68 22 143/58 97 Mechanical Ventilator 30 03/22/17 17:08 66 24 30 03/22/17 17:00 66 24 120/59 97 Mechanical Ventilator 30 03/22/17 16:00 30 03/22/17 16:00 98.9 68 20 143/60 98 Mechanical Ventilator 30 03/22/17 16:00 70 03/22/17 15:22 78 26 30 03/22/17 15:00 64 23 120/46 96 Mechanical Ventilator 30 Intake and Output 03/22/17 03/23/17 19:00 07:00 Intake Total 850 ml 750 ml Output Total 920 ml 1230 ml Balance -70 ml -480 ml Intake Free Water 150 ml 50 ml Tube Feeding 600 ml 600 ml Other 100 ml 100 ml Output Urine Total 920 ml 1230 ml # Bowel Movements 2 Laboratory Tests 03/23/17 04:00: White Blood Count 17.0H, Red Blood Count 3.49L, Hemoglobin 10.2L, Hematocrit 32.7L, Mean Corpuscular Volume 94, Mean Corpuscular Hemoglobin 29.3, Mean Corpuscular Hemoglobin Concent 31.3L, Red Cell Distribution Width 14.8, Platelet Count 363, Mean Platelet Volume 6.0L, Neutrophils (%) (Auto) 78.0H, Lymphocytes (%) (Auto) 16.9L, Monocytes (%) (Auto) 4.0, Eosinophils (%) (Auto) 0.7, Basophils (%) (Auto) 0.5, Sodium Level 144, Potassium Level 5.7H, Chloride Level 106, Carbon Dioxide Level 33H, Anion Gap 5, Blood Urea Nitrogen 37H, Creatinine 0.8, Estimat Glomerular Filtration Rate , Glucose Level 208H, Calcium Level 8.6, Phosphorus Level 4.6, Magnesium Level 1.8, Total Bilirubin 0.4, Aspartate Amino Transf (AST/SGOT) 15, Alanine Aminotransferase (ALT/SGPT) 16, Alkaline Phosphatase 91, Pro-B-Type Natriuretic Peptide 22816M, Total Protein 7.0, Albumin 2.2L, Globulin 4.8, Albumin/Globulin Ratio 0.4L 03/23/17 07:00: Urine Color Pale yellow, Urine Appearance Clear, Urine pH 6, Urine Specific [place] 1.015, Urine Protein 1+H, Urine Glucose (UA) Negative, Urine Ketones Negative, Urine Occult Blood 2+H, Urine Nitrite Negative, Urine Bilirubin Negative, Urine Urobilinogen Normal, Urine Leukocyte Esterase 1+H, Urine RBC 2- 4H, Urine WBC 5-10H, Urine Squamous Epithelial Cells Few, Urine Bacteria Few, Urine Yeast FewH Height (Feet): 6 Weight (Pounds): 182 Objective General Appearance: WD/WN, lethargic, confused Neck: supple Cardiovascular: regular rhythm Respiratory/Chest: lungs clear Abdomen: normal bowel sounds, non tender, soft, no organomegaly Edema: no edema noted Arm (L), no edema noted Arm (R), no edema noted Leg (L), no edema noted Leg (R), no edema noted Pedal (L), no edema noted Pedal (R), no edema noted Generalized Neurologic: disoriented, unresponsive Skin: normal pigmentation WENDIE CASTELLANOS Mar 23, 2017 14:35
[2017-03-23] MEDS: Dyna-Hex 2% Top Sol 8oz TOPIC SCH (21:07)
[2017-03-24] VITALS (23 sets, daily range): BP systolic 90–172; BP diastolic 48–74
[2017-03-24] MEDS: NovoLOG Insulin Flexpen SUBQ SCH ×5 (00:04→23:55)
[2017-03-24 05:59] LABS: BASOPHILS % (AUTO) 0.4 % (0.0-2.0); EOSINOPHILS % (AUTO) 1.3 % (0.0-3.0); LYMPHOCYTES % (AUTO) 17.2 % (20.0-45.0); MEAN CORPUSCULAR HEMOGLOBIN 29.8 PG (27.0-31.0); MEAN CORPUSCULAR VOLUME 93 FL (80-99); MEAN PLATELET VOLUME 6.4 FL (6.5-10.1); MONOCYTES % (AUTO) 4.5 % (1.0-10.0); NEUTROPHILS % (AUTO) 76.6 % (45.0-75.0); PLATELET COUNT 290 K/UL (150-450); RED BLOOD COUNT 3.02 M/UL (4.70-6.10); RED CELL DISTRIBUTION WIDTH 14.3 % (11.6-14.8)
[2017-03-24 06:05] LABS: INR 1.1 (0.9-1.1)
[2017-03-24 06:09] LABS: ANION GAP 8 (5-15); CALCIUM 8.5 mg/dL (8.6-10.2); CARBON DIOXIDE 33 mEQ/L (20-30); CHLORIDE 105 mEQ/L (98-107); CREATININE 0.7 mg/dL (0.7-1.2); HEMOLYSIS 1; POTASSIUM 4.1 mEQ/L (3.4-4.9); SODIUM 146 mEQ/L (135-145)
[2017-03-24] MEDS: Heparin 5000 units/ml inj SUBQ SCH ×2 (08:30→21:22)
--- NOTE | 2017-03-24 08:33 | Critical Care Progress Note ---
Assessment/Plan Assessment/Plan 1. Respiratory failure 2. Chronic renal failure. 3. Anemia. 4. Leukocytosis- now worse 5. Unstageable left heel ulcer, chronic with Kleb 6. Acute on chronic encephalopathy. 7. Gastrostomy tube 8. Aspiration. 9. Paroxysmal atrial fibrillation. 10. Permanent pacemaker. 11. History of Klebsiella urinary tract infection. 12. Failure to thrive 13. Hypertension. 14. Diabetes mellitus. 15. lactic acidosis 16. KPC 17. hyperkalemia PLAN care noted and reviewed exam without change surgery for trach; today IV antibiotics reviewed on isolation- colonized presently monitor renal function respiratory care as outlined not safe to extubate Ventilatory care noted SNF meds noted supportive care as outlined suction as needed nutrition optimized oxygen therapy and titrate prognosis guarded proceed with trach today family aware medications/laboratory data/nursing notes/ICU care reviewed in detail note reviewed and edited care discussed with RN and RT ICU time spent 36 minutes Critical Care - Subjective Interval Events: potassium corrected overall same NAD ROS Limited/Unobtainable: Yes Condition: critical EKG Rhythm: Sinus Rhythm Residuals: minimal Tube Feeding Tolerated: yes I&O: Intake and Output 03/23/17 03/24/17 18:59 06:59 Intake Total 860 ml 770 ml Output Total 1265 ml 1020 ml Balance -405 ml -250 ml Intake Free Water 60 ml IV Total 110 ml 110 ml Tube Feeding 600 ml 600 ml Other 150 ml Output Urine Total 1265 ml 1020 ml # Bowel Movements 2 Critical Care - Objective ET-Tube: 8.0 ET Position: 24 Last 24 Hour Vital Signs Date Time Temp Pulse Resp B/P Pulse Ox O2 Delivery O2 Flow Rate FiO2 03/24/17 08:00 70 17 153/60 97 Mechanical Ventilator 30 03/24/17 08:00 30 03/24/17 08:00 82 03/24/17 07:29 77 18 30 03/24/17 07:00 98.7 68 17 142/59 98 Mechanical Ventilator 03/24/17 06:00 70 17 141/60 97 Mechanical Ventilator 03/24/17 05:00 70 20 154/65 98 Mechanical Ventilator 03/24/17 05:00 75 20 30 03/24/17 04:00 77 03/24/17 04:00 30 03/24/17 04:00 98.5 77 19 129/49 97 Mechanical Ventilator 30 7/18/17 03:00 73 21 144/56 99 Mechanical Ventilator 30 718/17 02:52 69 19 30 7/18/17 02:00 71 19 112/48 96 Mechanical Ventilator 30 718/17 01:00 73 18 134/54 96 Mechanical Ventilator 30 7/18/17 00:59 69 22 30 7/18/17 00:00 30 7/18/17 00:00 98.0 69 18 120/56 96 Mechanical Ventilator 30 718/17 00:00 69 717/17 23:00 80 21 30 717/17 23:00 78 20 147/59 97 Mechanical Ventilator 30 717/17 22:00 70 23 153/65 98 Mechanical Ventilator 30 7/17 21:30 76 20 100 Mechanical Ventilator 30 7/17 21:30 30 03/23/17 21:14 72 24 99 Mechanical Ventilator 30 7/17 21:13 72 24 30 7/17 21:07 67 155/65 7/ 21:00 70 23 153/65 98 Mechanical Ventilator 30 7/17 20:00 30 7/17 20:00 72 7/17 20:00 97.7 72 21 146/60 97 Mechanical Ventilator 30 717/17 19:00 73 18 156/62 98 Mechanical Ventilator 30 717/17 18:56 76 24 30 717/17 18:56 74 23 Mechanical Ventilator 30 717/17 18:00 74 18 135/57 98 Mechanical Ventilator 30 717/17 17:00 73 18 123/50 98 Mechanical Ventilator 30 717/17 16:46 76 20 30 717/17 16:00 30 717/17 16:00 80 18 123/52 98 Mechanical Ventilator 30 7/17/17 16:00 75 717/17 15:29 75 23 30 7/17/17 15:00 68 18 125/47 98 Mechanical Ventilator 30 717/17 14:00 67 18 126/50 98 Mechanical Ventilator 30 717/17 13:00 69 18 149/57 98 Mechanical Ventilator 30 717/17 12:55 71 19 30 717/17 12:00 99.1 70 20 134/56 98 Mechanical Ventilator 30 717/17 12:00 30 717/17 12:00 67 03/23/17 10:47 77 16 100 Mechanical Ventilator 30 03/23/17 10:30 77 16 100 Mechanical Ventilator 30 03/23/17 10:30 30 03/23/17 10:30 79 16 30 03/23/17 10:00 69 20 127/52 98 Mechanical Ventilator 30 03/23/17 09:16 76 16 30 03/23/17 09:15 30 03/23/17 09:00 75 19 115/51 98 Mechanical Ventilator 30 Labs: Labs Test 03/21/17 10:30 03/23/17 04:00 03/23/17 07:00 03/24/17 05:00 Arterial Blood pH 7.260 (7.350-7.450) Arterial Blood Partial Pressure CO2 61.5 mmHg (35.0-45.0) Arterial Blood Partial Pressure O2 73.8 mmHg (75.0-100.0) Arterial Blood HCO3 27.3 mmol/L (22.0-26.0) Arterial Blood Oxygen Saturation 92.5 % (92.0-98.0) Arterial Blood Base Excess -0.6 Yosvany Test Positive White Blood Count 17.0 K/UL (4.8-10.8) 12.0 K/UL (4.8-10.8) Red Blood Count 3.49 M/UL (4.70-6.10) 3.02 M/UL (4.70-6.10) Hemoglobin 10.2 G/DL (14.2-18.0) 9.0 G/DL (14.2-18.0) Hematocrit 32.7 % (42.0-52.0) 28.1 % (42.0-52.0) Mean Corpuscular Volume 94 FL (80-99) 93 FL (80-99) Mean Corpuscular Hemoglobin 29.3 PG (27.0-31.0) 29.8 PG (27.0-31.0) Mean Corpuscular Hemoglobin Concent 31.3 G/DL (32.0-36.0) 32.0 G/DL (32.0-36.0) Red Cell Distribution Width 14.8 % (11.6-14.8) 14.3 % (11.6-14.8) Platelet Count 363 K/UL (150-450) 290 K/UL (150-450) Mean Platelet Volume 6.0 FL (6.5-10.1) 6.4 FL (6.5-10.1) Neutrophils (%) (Auto) 78.0 % (45.0-75.0) 76.6 % (45.0-75.0) Lymphocytes (%) (Auto) 16.9 % (20.0-45.0) 17.2 % (20.0-45.0) Monocytes (%) (Auto) 4.0 % (1.0-10.0) 4.5 % (1.0-10.0) Eosinophils (%) (Auto) 0.7 % (0.0-3.0) 1.3 % (0.0-3.0) Basophils (%) (Auto) 0.5 % (0.0-2.0) 0.4 % (0.0-2.0) Sodium Level 144 mEQ/L (135-145) 146 mEQ/L (135-145) Potassium Level 5.7 mEQ/L (3.4-4.9) 4.1 mEQ/L (3.4-4.9) Chloride Level 106 mEQ/L (98-107) 105 mEQ/L (98-107) Carbon Dioxide Level 33 mEQ/L (20-30) 33 mEQ/L (20-30) Anion Gap 5 (5-15) 8 (5-15) Blood Urea Nitrogen 37 mg/dL (7-23) 37 mg/dL (7-23) Creatinine 0.8 mg/dL (0.7-1.2) 0.7 mg/dL (0.7-1.2) Estimat Glomerular Filtration Rate mL/min (>60) mL/min (>60) Glucose Level 208 mg/dL (74-106) 193 mg/dL (74-106) Calcium Level 8.6 mg/dL (8.6-10.2) 8.5 mg/dL (8.6-10.2) Phosphorus Level 4.6 mg/dL (2.5-4.8) Magnesium Level 1.8 mg/dL (1.7-2.5) Total Bilirubin 0.4 mg/dL (0.0-1.2) Aspartate Amino Transf (AST/SGOT) 15 U/L (5-40) Alanine Aminotransferase (ALT/SGPT) 16 U/L (3-41) Alkaline Phosphatase 91 U/L (40-129) Pro-B-Type Natriuretic Peptide 17332 pg/mL (0-450) Total Protein 7.0 g/dL (6.6-8.7) Albumin 2.2 g/dL (3.5-5.2) Globulin 4.8 g/dL Albumin/Globulin Ratio 0.4 (1.0-2.7) Urine Color Pale yellow Urine Appearance Clear Urine pH 6 (4.5-8.0) Urine Specific [place] 1.015 (1.005-1.035) Urine Protein 1+ (NEGATIVE) Urine Glucose (UA) Negative (NEGATIVE) Urine Ketones Negative (NEGATIVE) Urine Occult Blood 2+ (NEGATIVE) Urine Nitrite Negative (NEGATIVE) Urine Bilirubin Negative (NEGATIVE) Urine Urobilinogen Normal MG/DL (0.0-1.0) Urine Leukocyte Esterase 1+ (NEGATIVE) Urine RBC 2-4 /HPF (0 - 0) Urine WBC 5-10 /HPF (0 - 0) Urine Squamous Epithelial Cells Few /LPF (NONE/OCC) Urine Bacteria Few /HPF (NONE) Urine Yeast Few /HPF (NONE) Prothrombin Time 12.0 SEC (9.30-11.50) Prothromb Time International Ratio 1.1 (0.9-1.1) Activated Partial Thromboplast Time 26 SEC (23-33) Objective: GENERAL: The patient is sedated on the ventilator NAD HEENT: Oropharynx is moist. Gag present. NECK: Supple. Carotids 2+. LUNGS: stable breath sounds and symmetric. No wheezes but noted scattered rhonchi. CARDIAC: S1 and S2. Regular rate and rhythm. Soft at the parasternal border. No rubs or gallops. ABDOMEN: Soft and nontender. No distention. no HSM; GT EXTREMITIES: No cyanosis. No clubbing. No edema. left heel wound NEUROLOGIC: Grossly nonfocal. still withdrawn reviewed and edited Accucheck: REJI SALAZAR Mar 24, 2017 08:33
[2017-03-24] MEDS ORDERED: Metoprolol 50mg tab ONE (08:42)
[2017-03-24] MEDS: Bactrim Susp 20ml PEG SCH ×2 (09:04→21:19)
[2017-03-24] MEDS: Tamsulosin 0.4mg cap GT SCH (09:04)
[2017-03-24] MEDS: sitaGLIPtin 25mg tab GT SCH (09:04)
[2017-03-24] MEDS: Ascorbic Acid 500mg tab GT SCH (09:04)
[2017-03-24] MEDS: Phospha 250 Neutral tab ORAL SCH ×3 (09:04→17:45)
[2017-03-24] MEDS: Ferrous Sulfate 300 MG/5 ML UDC GT SCH (09:05)
[2017-03-24] MEDS: Metoprolol 25mg tab ORAL SCH ×2 (09:05→21:18)
[2017-03-24] MEDS: Doxycycline 100mg in D5W 110ml IV SCH ×2 (09:19→21:17)
[2017-03-24] MEDS: Gentamicin for inhalation INH SCH ×2 (09:22→22:56)
--- NOTE | 2017-03-24 09:26 | General Progress Note ---
Assessment/Plan Problem List: (1) Shock ICD Codes: R57.9 - Shock, unspecified SNOMED: 97260435 (2) toxic metabo (3) toxic metabolic encephalopathy 2/2 infecion/metabolc derangement (4) Respiratory failure ICD Codes: J96.90 - Respiratory failure, unspecified, unspecified whether with hypoxia or hypercapnia SNOMED: 750635879 Qualifiers: Qualified Codes: J96.01 - Acute respiratory failure with hypoxia (5) Renal insufficiency ICD Codes: N28.9 - Disorder of kidney and ureter, unspecified SNOMED: 495619087, 506899094 (6) UTI (urinary tract infection) ICD Codes: N39.0 - Urinary tract infection, site not specified SNOMED: 39208605 Qualifiers: Qualified Codes: T83.511A - Infection and inflammatory reaction due to indwelling urethral catheter, initial encounter; N39.0 - Urinary tract infection , site not specified (7) Pneumonia ICD Codes: J18.9 - Pneumonia, unspecified organism SNOMED: 742107266 Qualifiers: Qualified Codes: J18.9 - Pneumonia, unspecified organism (8) Severe sepsis ICD Codes: A41.9 - Sepsis, unspecified organism; R65.20 - Severe sepsis without septic shock SNOMED: 06623426 (9) Pressure ulcer, heel ICD Codes: L89.609 - Pressure ulcer of unspecified heel, unspecified stage SNOMED: 363044680 (10) Pacemaker ICD Codes: Z95.0 - Presence of cardiac pacemaker SNOMED: 959573580, 888047979 (11) Malnutrition ICD Codes: E46 - Unspecified protein-calorie malnutrition SNOMED: 3825769 Status: stable, progressing Assessment/Plan iv abx follow up repeat cultures monitor wbc wean vent as able gt feeds monitor labs laxatives wound care critical and guarded neuro appreciated proceed with trach today poc d/.w Subjective ROS Limited/Unobtainable: Yes Constitutional: Reports: malaise, weakness HEENT: Reports: no symptoms Cardiovascular: Reports: no symptoms Respiratory: Reports: shortness of breath, sputum Gastrointestinal/Abdominal: Reports: difficulty swallowing Genitourinary: Reports: no symptoms Neurologic/Psychiatric: Reports: pre-existing deficit Endocrine: Reports: no symptoms Hematologic/Lymphatic: Reports: anemia Allergies: Coded Allergies: No Known Allergies (Unverified , 01/07/17) All Systems: reviewed and negative except above Subjective no overnight events. off pressors. still with significant secretions. more responsive. head ct negative. opens eyes with stimulation but does not track or follow commands. npo for trach today Objective Last 24 Hour Vital Signs Date Time Temp Pulse Resp B/P Pulse Ox O2 Delivery O2 Flow Rate FiO2 03/24/17 09:05 71 159/70 03/24/17 08:00 70 17 153/60 97 Mechanical Ventilator 30 03/24/17 08:00 30 03/24/17 08:00 82 03/24/17 07:29 77 18 30 03/24/17 07:00 98.7 68 17 142/59 98 Mechanical Ventilator 30 03/24/17 06:00 70 17 141/60 97 Mechanical Ventilator 30 03/24/17 05:00 70 20 154/65 98 Mechanical Ventilator 30 03/24/17 05:00 75 20 30 03/24/17 04:00 77 03/24/17 04:00 30 03/24/17 04:00 98.5 77 19 129/49 97 Mechanical Ventilator 30 03/24/17 03:00 73 21 144/56 99 Mechanical Ventilator 30 03/24/17 02:52 69 19 30 03/24/17 02:00 71 19 112/48 96 Mechanical Ventilator 30 03/24/17 01:00 73 18 134/54 96 Mechanical Ventilator 30 03/24/17 00:59 69 22 30 03/24/17 00:00 30 03/24/17 00:00 98.0 69 18 120/56 96 Mechanical Ventilator 30 03/24/17 00:00 69 03/23/17 23:00 80 21 30 03/23/17 23:00 78 20 147/59 97 Mechanical Ventilator 30 03/23/17 22:00 70 23 153/65 98 Mechanical Ventilator 30 03/23/17 21:30 76 20 100 Mechanical Ventilator 30 03/23/17 21:30 30 03/23/17 21:14 72 24 99 Mechanical Ventilator 30 03/23/17 21:13 72 24 30 03/23/17 21:07 67 155/65 03/23/17 21:00 70 23 153/65 98 Mechanical Ventilator 30 03/23/17 20:00 30 03/23/17 20:00 72 03/23/17 20:00 97.7 72 21 146/60 97 Mechanical Ventilator 30 03/23/17 19:00 73 18 156/62 98 Mechanical Ventilator 30 03/23/17 18:56 76 24 30 03/23/17 18:56 74 23 Mechanical Ventilator 30 03/23/17 18:00 74 18 135/57 98 Mechanical Ventilator 30 03/23/17 17:00 73 18 123/50 98 Mechanical Ventilator 30 03/23/17 16:46 76 20 30 03/23/17 16:00 30 03/23/17 16:00 80 18 123/52 98 Mechanical Ventilator 30 03/23/17 16:00 75 03/23/17 15:29 75 23 30 03/23/17 15:00 68 18 125/47 98 Mechanical Ventilator 30 03/23/17 14:00 67 18 126/50 98 Mechanical Ventilator 30 03/23/17 13:00 69 18 149/57 98 Mechanical Ventilator 30 03/23/17 12:55 71 19 30 03/23/17 12:00 99.1 70 20 134/56 98 Mechanical Ventilator 30 03/23/17 12:00 30 03/23/17 12:00 67 03/23/17 10:47 77 16 100 Mechanical Ventilator 30 03/23/17 10:30 77 16 100 Mechanical Ventilator 30 03/23/17 10:30 30 03/23/17 10:30 79 16 30 03/23/17 10:00 69 20 127/52 98 Mechanical Ventilator 30 Intake and Output 03/23/17 03/24/17 19:00 07:00 Intake Total 860 ml 770 ml Output Total 1220 ml 990 ml Balance -360 ml -220 ml Intake Free Water 60 ml IV Total 110 ml 110 ml Tube Feeding 600 ml 600 ml Other 150 ml Output Urine Total 1220 ml 990 ml # Bowel Movements 2 Laboratory Tests 03/24/17 05:00: White Blood Count 12.0H, Red Blood Count 3.02L, Hemoglobin 9.0L, Hematocrit 28.1L, Mean Corpuscular Volume 93, Mean Corpuscular Hemoglobin 29.8, Mean Corpuscular Hemoglobin Concent 32.0, Red Cell Distribution Width 14.3, Platelet Count 290, Mean Platelet Volume 6.4L, Neutrophils (%) (Auto) 76.6H, Lymphocytes (%) (Auto) 17.2L, Monocytes (%) (Auto) 4.5, Eosinophils (%) (Auto) 1.3, Basophils (%) (Auto) 0.4, Prothrombin Time 12.0H, Prothromb Time International Ratio 1.1, Activated Partial Thromboplast Time 26, Sodium Level 146H, Potassium Level 4.1, Chloride Level 105, Carbon Dioxide Level 33H, Anion Gap 8, Blood Urea Nitrogen 37H, Creatinine 0.7, Estimat Glomerular Filtration Rate , Glucose Level 193H, Calcium Level 8.5L Height (Feet): 6 Weight (Pounds): 184 Objective General Appearance: WD/WN, lethargic, confused Neck: supple Cardiovascular: regular rhythm Respiratory/Chest: lungs clear Abdomen: normal bowel sounds, non tender, soft, no organomegaly Edema: no edema noted Arm (L), no edema noted Arm (R), no edema noted Leg (L), no edema noted Leg (R), no edema noted Pedal (L), no edema noted Pedal (R), no edema noted Generalized Neurologic: disoriented, unresponsive Skin: normal pigmentation WENDIE CASTELLANOS Mar 24, 2017 09:26
--- NOTE | 2017-03-24 11:07 | Infectious Diseases Prog Note ---
"Assessment/Plan Assessment/Plan antibiotics : inhaled gentamicin, bactrim, doxycycline A 1. fungal UTI s/p rx 2. klebsiella | acenitobacter pneumonia 3. septic shock 4. respiratory failure 5. leucocytosis resolved 6. DM P 1. continue inhaled gentamicin 2 more days 2. continue bactrim 1 more day 3. continue doxycycline 2 more days 4. will follow up cultures Subjective ROS Limited/Unobtainable: Yes Allergies: Coded Allergies: No Known Allergies (Unverified , 01/07/17) Objective Vital Signs Last 24 Hour Vital Signs Date Time Temp Pulse Resp B/P Pulse Ox O2 Delivery O2 Flow Rate FiO2 03/24/17 10:00 78 20 90/57 98 Mechanical Ventilator 30 03/24/17 09:22 67 19 100 Mechanical Ventilator 30 03/24/17 09:22 67 19 99 Mechanical Ventilator 30 03/24/17 09:22 30 03/24/17 09:22 67 19 30 03/24/17 09:05 71 159/70 03/24/17 09:00 70 20 158/60 97 Mechanical Ventilator 30 03/24/17 08:00 70 17 153/60 97 Mechanical Ventilator 30 03/24/17 08:00 30 03/24/17 08:00 82 03/24/17 07:29 77 18 30 03/24/17 07:00 98.7 68 17 142/59 98 Mechanical Ventilator 30 03/24/17 06:00 70 17 141/60 97 Mechanical Ventilator 30 03/24/17 05:00 70 20 154/65 98 Mechanical Ventilator 30 03/24/17 05:00 75 20 30 03/24/17 04:00 77 03/24/17 04:00 30 03/24/17 04:00 98.5 77 19 129/49 97 Mechanical Ventilator 30 03/24/17 03:00 73 21 144/56 99 Mechanical Ventilator 30 03/24/17 02:52 69 19 30 03/24/17 02:00 71 19 112/48 96 Mechanical Ventilator 30 03/24/17 01:00 73 18 134/54 96 Mechanical Ventilator 30 03/24/17 00:59 69 22 30 03/24/17 00:00 30 03/24/17 00:00 98.0 69 18 120/56 96 Mechanical Ventilator 30 03/24/17 00:00 69 03/23/17 23:00 80 21 30 03/23/17 23:00 78 20 147/59 97 Mechanical Ventilator 30 03/23/17 22:00 70 23 153/65 98 Mechanical Ventilator 30 03/23/17 21:30 76 20 100 Mechanical Ventilator 30 03/23/17 21:30 30 03/23/17 21:14 72 24 99 Mechanical Ventilator 30 03/23/17 21:13 72 24 30 03/23/17 21:07 67 155/65 03/23/17 21:00 70 23 153/65 98 Mechanical Ventilator 30 03/23/17 20:00 30 03/23/17 20:00 72 03/23/17 20:00 97.7 72 21 146/60 97 Mechanical Ventilator 30 03/23/17 19:00 73 18 156/62 98 Mechanical Ventilator 30 03/23/17 18:56 76 24 30 03/23/17 18:56 74 23 Mechanical Ventilator 30 03/23/17 18:00 74 18 135/57 98 Mechanical Ventilator 30 03/23/17 17:00 73 18 123/50 98 Mechanical Ventilator 30 03/23/17 16:46 76 20 30 03/23/17 16:00 30 03/23/17 16:00 80 18 123/52 98 Mechanical Ventilator 30 03/23/17 16:00 75 03/23/17 15:29 75 23 30 03/23/17 15:00 68 18 125/47 98 Mechanical Ventilator 30 03/23/17 14:00 67 18 126/50 98 Mechanical Ventilator 30 03/23/17 13:00 69 18 149/57 98 Mechanical Ventilator 30 03/23/17 12:55 71 19 30 03/23/17 12:00 99.1 70 20 134/56 98 Mechanical Ventilator 30 03/23/17 12:00 30 03/23/17 12:00 67 Height (Feet): 6 Weight (Pounds): 184 HEENT: other - intubated Respiratory/Chest: lungs clear Cardiovascular: normal rate, regular rhythm, no gallop/murmur Abdomen: soft, non tender, other - GT Extremities: other - + edema, right arm PICC Microbiology Date/Time Source Procedure Growth Status 03/23/17 07:00 Urine,Clean Catch Urine Culture - Preliminary NO GROWTH AFTER 24 HOURS Resulted Laboratory Tests Test 03/24/17 05:00 White Blood Count 12.0 K/UL (4.8-10.8) H Red Blood Count 3.02 M/UL (4.70-6.10) L Hemoglobin 9.0 G/DL (14.2-18.0) L Hematocrit 28.1 % (42.0-52.0) L Mean Corpuscular Volume 93 FL (80-99) Mean Corpuscular Hemoglobin 29.8 PG (27.0-31.0) Mean Corpuscular Hemoglobin Concent 32.0 G/DL (32.0-36.0) Red Cell Distribution Width 14.3 % (11.6-14.8) Platelet Count 290 K/UL (150-450) Mean Platelet Volume 6.4 FL (6.5-10.1) L Neutrophils (%) (Auto) 76.6 % (45.0-75.0) H Lymphocytes (%) (Auto) 17.2 % (20.0-45.0) L Monocytes (%) (Auto) 4.5 % (1.0-10.0) Eosinophils (%) (Auto) 1.3 % (0.0-3.0) Basophils (%) (Auto) 0.4 % (0.0-2.0) Prothrombin Time 12.0 SEC (9.30-11.50) H Prothromb Time International Ratio 1.1 (0.9-1.1) Activated Partial Thromboplast Time 26 SEC (23-33) Sodium Level 146 mEQ/L (135-145) H Potassium Level 4.1 mEQ/L (3.4-4.9) Chloride Level 105 mEQ/L (98-107) Carbon Dioxide Level 33 mEQ/L (20-30) H Anion Gap 8 (5-15) Blood Urea Nitrogen 37 mg/dL (7-23) H Creatinine 0.7 mg/dL (0.7-1.2) Estimat Glomerular Filtration Rate mL/min (>60) Glucose Level 193 mg/dL (74-106) H Calcium Level 8.5 mg/dL (8.6-10.2) L VINICIO VAUGHAN Mar 24, 2017 11:07"
[2017-03-24] MEDS ORDERED: Lidocaine 1% 10mg/ml/Epi 0.005mg/ml 30ml vial INJ ONE (14:21)
[2017-03-24] MEDS ORDERED: Propofol 10mg/ml 20ml IV ONE (14:54)
[2017-03-24] MEDS ORDERED: Sterile Water Irrig 1000ml IRRIG ONE (14:55)
[2017-03-24] MEDS ORDERED: NS Irrig 1000ml ONE (14:55)
[2017-03-24] MEDS ORDERED: Lidocaine 1% MPF 10mg/ml 5ml ONE (14:55)
[2017-03-24] MEDS ORDERED: fentaNYL 100 mcg/2 mL IV ONE (14:55)
[2017-03-24] MEDS ORDERED: Midazolam 2mg/2ml Inj ONE (14:55)
[2017-03-24] MEDS ORDERED: Zemuron 50mg/5ml Inj IV ONE (14:55)
--- NOTE | 2017-03-24 15:31 | Anethesia Preoperative Eval ---
Anesthesia Pre-op PMH/ROS General Date of Evaluation: Mar 24, 2017 Anesthesiologist: Kannan ASA Score: ASA 3 Mallampati Score Class I : Soft palate, uvula, fauces, pillars visible Class II: Soft palate, uvula, fauces visible Class III: Soft palate, base of uvula visible Class IV: Only hard plate visible Mallampati Classification: Class II Surgeon: Lacey Diagnosis: respiratory faillure Surgical Procedure: Trach Anesthesia History: none Family History: no anesthesia problems Allergies: Coded Allergies: No Known Allergies (Unverified , 01/07/17) Medications: see eMAR Past Medical History Cardiovascular: Reports: CAD, HTN, arrhythmia - pacemaker, other - PVD, Denies: NM, valve dz Pulmonary: Reports: COPD, Denies: CANDY, asthma, other Gastrointestinal/Genitourinary: Reports: ESRD, GERD, Denies: CRI, other Neurologic/Psychiatric: Reports: depression/anxiety, Denies: CVA, TIA, dementia, other Endocrine: Reports: DM, Denies: hypothyroidism, other, steroids HEENT: Denies: T[place]CARORA (L), T[place]A (R), cataract (L), cataract (R), glaucoma, other Hematology/Immune: Denies: DVT, anemia, bleeding disorder, other Musculoskeletal/Integumentary: Denies: DDD, DJD, OA, RA, edema, other PSxH Narrative: unable to assess Anesthesia Pre-op Phys. Exam Physician Exam Last Vital Signs Date Time Temp Pulse Resp B/P Pulse Ox O2 Delivery O2 Flow Rate FiO2 03/24/17 14:00 99.1 71 20 125/57 97 Mechanical Ventilator 30 03/21/17 20:00 Constitutional: NAD Cardiovascular: RRR Respiratory: CTA Airway Exam Mallampati Score: Class II MO: full ROM: full Teeth: intact Anesthesia Pre-op A/P Labs Hematology Test 03/24/17 05:00 White Blood Count 12.0 K/UL (4.8-10.8) H Red Blood Count 3.02 M/UL (4.70-6.10) L Hemoglobin 9.0 G/DL (14.2-18.0) L Hematocrit 28.1 % (42.0-52.0) L Mean Corpuscular Volume 93 FL (80-99) Mean Corpuscular Hemoglobin 29.8 PG (27.0-31.0) Mean Corpuscular Hemoglobin Concent 32.0 G/DL (32.0-36.0) Red Cell Distribution Width 14.3 % (11.6-14.8) Platelet Count 290 K/UL (150-450) Mean Platelet Volume 6.4 FL (6.5-10.1) L Neutrophils (%) (Auto) 76.6 % (45.0-75.0) H Lymphocytes (%) (Auto) 17.2 % (20.0-45.0) L Monocytes (%) (Auto) 4.5 % (1.0-10.0) Eosinophils (%) (Auto) 1.3 % (0.0-3.0) Basophils (%) (Auto) 0.4 % (0.0-2.0) Coagulation Test 03/24/17 05:00 Prothrombin Time 12.0 SEC (9.30-11.50) H Prothromb Time International Ratio 1.1 (0.9-1.1) Activated Partial Thromboplast Time 26 SEC (23-33) Chemistry Test 03/24/17 05:00 Sodium Level 146 mEQ/L (135-145) H Potassium Level 4.1 mEQ/L (3.4-4.9) Chloride Level 105 mEQ/L (98-107) Carbon Dioxide Level 33 mEQ/L (20-30) H Anion Gap 8 (5-15) Blood Urea Nitrogen 37 mg/dL (7-23) H Creatinine 0.7 mg/dL (0.7-1.2) Estimat Glomerular Filtration Rate mL/min (>60) Glucose Level 193 mg/dL (74-106) H Calcium Level 8.5 mg/dL (8.6-10.2) L Risk Assessment & Plan Assessment: ASA III Plan: GA Status Change Before Surgery: No Pre-Antibiotics Drug: Ancef 1g Given Within 1 Hr of Incision: Yes Time Given: 15:05 SVEN GOODRICH M.D. Mar 24, 2017 15:31
--- NOTE | 2017-03-24 15:33 | Immediate Post-Op Evaluation ---
Immediate Post-Op Evalulation Immediate Post-Op Evalulation Procedure: Tracheostomy Date of Evaluation: Mar 24, 2017 Time of Evaluation: 16:00 IV Fluids: 50 Blood Products: 0 Estimated Blood Loss: 5 Urinary Output: 0 Blood Pressure Systolic: 107 Blood Pressure Diastolic: 48 Pulse Rate: 65 Respiratory Rate: 20 O2 Sat by Pulse Oximetry: 98 Temperature (Fahrenheit): 99.1 Pain Score (1-10): 0 Nausea: No Vomiting: No Complications 0 Patient Status: awake, reacts, patent, none Hydration Status: adequate Drug: Ancef 1g Given Within 1 Hr of Incision: Yes Time Given: 15:05 SVEN GOODRICH M.D. Mar 24, 2017 15:33
--- NOTE | 2017-03-24 15:37 | Pre-Procedure Note/Attestation ---
Pre-Procedure Note/Attestation Complete Prior to Procedure Planned Procedure: not applicable Procedure Narrative: tracheostomy Indications for Procedure Pre-Operative Diagnosis: respiratory failure requiring prolonged intubation Attestation I attest that I discussed the nature of the procedure; its benefits; risks and complications; and alternatives (and the risks and benefits of such alternatives ), prior to the procedure, with the patient (or the patient's legal airline security representative). I attest that, if there was a reasonable possibility of needing a blood transfusion, the patient (or the patient's legal airline security representative) was given the [facility] standardized written summary, pursuant to the Lorne [place] Blood Safety Act ([place] Health and Safety Code # 1645, as amended). I attest that I re-evaluated the patient just prior to the surgery and that there has been no change in the patient's H&P, except as documented below: Aris Rahman Mar 24, 2017 15:37
--- NOTE | 2017-03-24 15:49 | Brief Operative Note ---
Immediate Post Operative Note Operative Note Pre-op Diagnosis: respiratory failure requiring prolonged intubation Procedure: tracheostomy Post-op Diagnosis: same as pre-op Surgeon: osvaldo Anesthesiologist: melissa Anesthesia: general Specimen: none Complications: none Condition: stable Fluids: see records Estimated Blood Loss: minimal Drains: none Implant(s) used?: Yes - 8f Aris Ruiz Mar 24, 2017 15:49
--- NOTE | 2017-03-24 16:46 | Diagnostic Imaging Report ---
Indication: Dyspnea Comparison: 03/23/17 A single view chest radiograph was obtained. Findings: Tracheostomy noted. There is no pneumothorax. Pulmonary interstitial edema and other interstitial densities of unknown cause noted. Heart size is normal. Pacemaker again noted. Impression: Tracheostomy in good position. No complications or other change.
[2017-03-24] MEDS: Dyna-Hex 2% Top Sol 8oz TOPIC SCH (21:19)
--- NOTE | 2017-03-24 23:00 | Operative Note - Dictated ---
DATE OF OPERATION: 03/24/2017 PREOPERATIVE DIAGNOSIS: Respiratory failure requiring prolonged intubation. POSTOPERATIVE DIAGNOSIS: Respiratory failure requiring prolonged intubation. OPERATION PERFORMED: Tracheostomy. ATTENDING SURGEON: Aris Rahman M.D. BOOTS AND SHOES SUPERVISOR: None. ANESTHESIOLOGIST: Dr. Brunner. ANESTHESIA: General MEAT PRESS OPERATOR. ESTIMATED BLOOD LOSS: Minimal. IV FLUIDS: Please see anesthesia records. COMPLICATIONS: None. WOUND CLASSIFICATION: Class 1. ANTIBIOTICS: Ancef 1 g IV given 1 hour prior to cut time. SPECIMENS: None. IMPLANTS: An 8-Slovenian Shiley tracheostomy. COUNTS: Sponge and needle count correct x2. INDICATIONS FOR PROCEDURE: This is an 82-year-old male, currently in the intensive care unit of [facility] being cared for by the medical team. The patient has respiratory failure requiring prolonged intubation. Surgery called for evaluation and consideration of tracheostomy placement. Discussion was held with the patient's family members regarding the patient's current condition and necessity for prolonged ventilation. The patient's family expressed desire to proceed with tracheostomy. Risks, benefits, and alternatives were discussed in detail. Consent was signed in chart prior to entering the operating room. OPERATIVE NOTE: The patient was taken to the operating room directly from the intensive care unit and made comfortable. The patient was left in the hospital bed with all bony prominences well padded. Prior to entering the operating room, the patient was already intubated on ventilator support and already had a Banda placed. Preoperative time-out was taken in identifying the patient, procedure, operative staff, and surgical staff. SCDs were resumed. General anesthesia was induced by the anesthesiologist. The neck was prepped and draped in the standard surgical fashion. An incision was made 2 fingerbreadths above the sternal notch. Incision was carried down through the subcutaneous tissue using electrocautery and blunt dissection. An anterior jugular vein on the right side was ligated and divided using 2-0 silk ties. Once we dissected down to the trachea, the anatomy was identified with identifying the tracheal notch, cricoid membrane, and the first, second, and third tracheal rings. Once the proper lining was dissected out, a tracheal hook was used to elevate the trachea and stabilize it. Once this was completed, we coordinated with anesthesia for incision into the trachea and slow withdrawal of the endotracheal tube for placement of the tracheostomy tube. Using a fresh #11 blade, an incision was made in the second tracheal ring and a window was cut in the anterior portion of the second tracheal ring. Once this was completed, a 2-0 Prolene stay sutures were placed on the lateral aspects of the tracheal rings for stabilization. The anesthesiologist slowly withdrew the endotracheal tube and once the endotracheal tube was out, an 8-Slovenian Shiley tracheostomy tube was inserted under direct visualization without complication. The balloon of the tracheostomy tube was insufflated and the ventilator was placed on a tracheostomy tube with good tidal volumes and no complications. At this time, the wound was irrigated and we began our closure. The skin on the lateral aspect of the tracheostomy tube were reapproximated using 3-0 nylon sutures. The tracheostomy was then sutured to the skin in four points using 3-0 nylon sutures. The trach collar was then placed and procedure completed. The patient was transferred back to the intensive care unit in stable condition. Aris Rahman M.D. DR: MARGARET JOB#: [id number] CC:
--- NOTE | 2017-03-24 23:27 | Wound Nurse Progress Note ---
Wound RN Progress Note Wound Consult #1 Right heel pressure ulcer Deep tissue injury. Still intact #2 Right 5th metatarsal head pressure ulcer Deep tissue injury. Same size. No deterioration noted. #3 Right mid lateral foot pressure ulcer Deep tissue injury. Still intact. #4 Right lateral malleolus pressure ulcer Deep Tissue Injury. Still intact #5 Right dorsal aspect of foot pressure ulcer stage I. Still Intact #6 Left heel pressure ulcer scattered unstageable wounds. #7 Left mid lateral foot pressure ulcer Deep tissue injury. Still Intact #8 Left 5th metatarsal head pressure ulcer suspected deep tissue injury. Still Intact #9 Left 1st metatarsal head pressure ulcer Unstageable. #10 Left lateral lower leg pressure ulcer Unstageable. #11 Left dorsal aspect of foot scab. Still Intact #12 Left dorsal aspect of foot pressure ulcer deep tissue injury. Still Intact #13 perineal/ perianal chemical burn. Resolving #14 Right aspect of sacral pressure ulcer stage III. Resolving Reassess this Pt. No further deterioration noted. will cont same treatment. RECOMMENDATION. -Local wound care as ordered. -Apply low air loss mattress. -Turn and reposition. -Keep clean and dry. -Optimize nutrition. -Offload affected pressure ulcer sites. -Apply heel protectors. -Avoid sheer and friction. -Assess and notify MD for any changes on condition noted to skin. MARIANO SAUER RN Mar 24, 2017 23:27
[2017-03-25] VITALS (24 sets, daily range): BP systolic 104–145; BP diastolic 45–72
--- NOTE | 2017-03-25 01:45 | Progress Note ---
DATE: 03/24/2017 CARDIOLOGY PROGRESS NOTE SUBJECTIVE: The patient is on ventilator support. Condition remains critical. He is in the intensive care unit. OBJECTIVE: VITAL SIGNS: Blood pressure 136/56, pulse rate 76, respiratory rate 16, and afebrile. LUNGS: Coarse breath sounds. Scattered rhonchi. CARDIAC: Irregularly irregular rhythm. Normal S1, and paradoxically split S2. ABDOMEN: Soft. EXTREMITIES: Trace edema. IMPRESSION: 1. Respiratory failure. 2. Paroxysmal atrial fibrillation permanent pacemaker. 3. Severe sepsis. 4. Recovered shock. 5. Acute on chronic diastolic congestive heart failure. PLAN: 1. Hold diuresis. 2. Proceed with trach. 3. DVT and stress ulcer prophylaxis. 4. Continue current cardiovascular regimen. 5. We will continue to titrate metoprolol for optimal hemodynamic parameters. Stanislav Jain M.D. DR: SANDEEP JOB#: [id number] CC:
--- NOTE | 2017-03-25 02:30 | Progress Note ---
DATE: 03/23/2017 CARDIOLOGY PROGRESS NOTE SUBJECTIVE: He remain on ventilator support. Not weaning. Tracheostomy plan. OBJECTIVE: VITAL SIGNS: Blood pressure 149/57, pulse 69, respiratory rate 18, and afebrile. T-max is 99.1. LUNGS: Coarse breath sounds. Scattered rhonchi. HEART: Irregularly irregular rhythm. Normal S1, and paradoxically split S2. ABDOMEN: Soft. EXTREMITIES: Trace dependent edema. NEUROLOGIC: Poorly responsive. LABORATORY DATA: White count 17 and hemoglobin 10. BUN 37 and creatinine 0.8. Potassium is 5.7. IMPRESSION: 1. Hyperkalemia. 2. Acute respiratory failure. 3. Cerebrovascular disease with dementia. 4. Hypertensive heart disease. 5. Severe sepsis. 6. Recovered shock. 7. Critical and guarded. 8. Paroxysmal atrial fibrillation permanent pacemaker. PLAN: 1. Antimicrobials. 2. Ventilator support. 3. Stable for tracheostomy. 4. DVT prophylaxis. 5. Stress ulcer prophylaxis. 6. Nutrition by feeding tube. 7. Monitor cardiorenal parameters and volume status and adjust diuretic dosing accordingly. Stanislav Jain M.D. DR: SANDEEP JOB#: [id number] CC:
[2017-03-25] MEDS: NovoLOG Insulin Flexpen SUBQ SCH ×4 (05:46→23:16)
--- NOTE | 2017-03-25 08:16 | General Progress Note ---
Assessment/Plan Problem List: (1) Shock ICD Codes: R57.9 - Shock, unspecified SNOMED: 65368756 (2) toxic metabo (3) toxic metabolic encephalopathy 2/2 infecion/metabolc derangement (4) Respiratory failure ICD Codes: J96.90 - Respiratory failure, unspecified, unspecified whether with hypoxia or hypercapnia SNOMED: 766963170 Qualifiers: Qualified Codes: J96.01 - Acute respiratory failure with hypoxia (5) Renal insufficiency ICD Codes: N28.9 - Disorder of kidney and ureter, unspecified SNOMED: 716238167, 810050199 (6) UTI (urinary tract infection) ICD Codes: N39.0 - Urinary tract infection, site not specified SNOMED: 32497504 Qualifiers: Qualified Codes: T83.511A - Infection and inflammatory reaction due to indwelling urethral catheter, initial encounter; N39.0 - Urinary tract infection , site not specified (7) Pneumonia ICD Codes: J18.9 - Pneumonia, unspecified organism SNOMED: 124849531 Qualifiers: Qualified Codes: J18.9 - Pneumonia, unspecified organism (8) Severe sepsis ICD Codes: A41.9 - Sepsis, unspecified organism; R65.20 - Severe sepsis without septic shock SNOMED: 55379112 (9) Pressure ulcer, heel ICD Codes: L89.609 - Pressure ulcer of unspecified heel, unspecified stage SNOMED: 540067834 (10) Pacemaker ICD Codes: Z95.0 - Presence of cardiac pacemaker SNOMED: 036414091, 255343280 (11) Malnutrition ICD Codes: E46 - Unspecified protein-calorie malnutrition SNOMED: 5845269 Status: stable, progressing Assessment/Plan iv abx follow up repeat cultures monitor wbc wean vent as able gt feeds monitor labs laxatives wound care stable for darlene poc d/.w Subjective ROS Limited/Unobtainable: Yes Constitutional: Reports: malaise, weakness HEENT: Reports: no symptoms Cardiovascular: Reports: no symptoms Respiratory: Reports: cough, shortness of breath, sputum Gastrointestinal/Abdominal: Reports: difficulty swallowing Genitourinary: Reports: no symptoms Neurologic/Psychiatric: Reports: pre-existing deficit Endocrine: Reports: no symptoms Hematologic/Lymphatic: Reports: anemia Allergies: Coded Allergies: No Known Allergies (Unverified , 01/07/17) All Systems: reviewed and negative except above Subjective s/p uncomplicated trach. alert. tracks. does not follow commands. d/w rn. no overnight events. tolerating feeds Objective Last 24 Hour Vital Signs Date Time Temp Pulse Resp B/P Pulse Ox O2 Delivery O2 Flow Rate FiO2 03/25/17 07:03 70 23 30 03/25/17 06:00 70 18 130/55 96 Mechanical Ventilator 30 03/25/17 05:29 71 18 30 03/25/17 05:00 69 21 124/67 98 Mechanical Ventilator 30 03/25/17 04:00 30 03/25/17 04:00 66 03/25/17 04:00 98.7 66 19 130/69 97 Mechanical Ventilator 30 03/25/17 03:30 65 20 30 03/25/17 03:00 73 22 128/58 98 Mechanical Ventilator 30 03/25/17 02:00 69 22 141/62 99 Mechanical Ventilator 30 03/25/17 01:30 71 21 30 03/25/17 01:00 67 20 132/51 98 Mechanical Ventilator 30 03/25/17 00:00 67 03/25/17 00:00 30 03/25/17 00:00 98.8 67 18 118/50 95 Mechanical Ventilator 30 03/24/17 23:00 79 16 172/74 100 Mechanical Ventilator 30 03/24/17 22:59 78 16 30 03/24/17 22:00 80 16 100 Mechanical Ventilator 03/24/17 22:00 69 19 136/56 98 Mechanical Ventilator 30 03/24/17 22:00 76 16 100 Mechanical Ventilator 30 03/24/17 21:25 77 20 30 03/24/17 21:18 70 127/53 03/24/17 21:00 68 18 127/53 98 Mechanical Ventilator 30 03/24/17 20:00 68 03/24/17 20:00 30 03/24/17 20:00 98.7 68 17 117/56 98 Mechanical Ventilator 30 03/24/17 19:47 65 20 98 03/24/17 19:30 69 17 30 03/24/17 19:00 69 20 116/52 98 Mechanical Ventilator 30 03/24/17 18:00 98.9 69 18 126/48 100 Mechanical Ventilator 30 03/24/17 17:00 68 20 132/59 98 Mechanical Ventilator 30 03/24/17 16:59 74 16 30 03/24/17 16:00 99.1 65 20 107/48 98 Mechanical Ventilator 30 03/24/17 16:00 30 03/24/17 16:00 67 03/24/17 15:49 79 16 30 03/24/17 14:00 99.1 71 20 125/57 97 Mechanical Ventilator 30 03/24/17 13:45 99.1 03/24/17 13:00 99.3 69 21 132/65 98 Mechanical Ventilator 30 03/24/17 12:44 69 20 30 03/24/17 12:00 30 03/24/17 12:00 72 03/24/17 12:00 99.1 71 20 130/54 97 Mechanical Ventilator 30 03/24/17 11:20 74 19 30 03/24/17 11:00 77 20 137/57 98 Mechanical Ventilator 30 03/24/17 10:00 78 20 90/57 98 Mechanical Ventilator 30 03/24/17 09:22 67 19 100 Mechanical Ventilator 30 03/24/17 09:22 67 19 99 Mechanical Ventilator 30 03/24/17 09:22 30 03/24/17 09:22 67 19 30 03/24/17 09:05 71 159/70 03/24/17 09:00 70 20 158/60 97 Mechanical Ventilator 30 Intake and Output 03/24/17 03/25/17 19:00 07:00 Intake Total 330 ml 770 ml Output Total 760 ml 940 ml Balance -430 ml -170 ml Intake Free Water 60 ml IV Total 110 ml 110 ml Tube Feeding 80 ml 600 ml Other 140 ml Output Urine Total 760 ml 940 ml # Bowel Movements 2 Height (Feet): 6 Height (Inches): 0.00 Weight (Pounds): 184 Objective General Appearance: WD/WN, lethargic, confused Neck: supple, trach med line. no bleeding Cardiovascular: regular rhythm Respiratory/Chest: lungs clear Abdomen: normal bowel sounds, non tender, soft, no organomegaly Edema: no edema noted Arm (L), no edema noted Arm (R), no edema noted Leg (L), no edema noted Leg (R), no edema noted Pedal (L), no edema noted Pedal (R), no edema noted Generalized Neurologic: disoriented, unresponsive Skin: normal pigmentation WENDIE CASTELLANOS Mar 25, 2017 08:16
--- NOTE | 2017-03-25 08:41 | Critical Care Progress Note ---
Assessment/Plan Assessment/Plan 1. Respiratory failure 2. Chronic renal failure. 3. Anemia. 4. Leukocytosis- now worse 5. Unstageable left heel ulcer, chronic with Kleb 6. Acute on chronic encephalopathy. 7. Gastrostomy tube 8. Aspiration. 9. Paroxysmal atrial fibrillation. 10. Permanent pacemaker. 11. History of Klebsiella urinary tract infection. 12. Failure to thrive 13. Hypertension. 14. Diabetes mellitus. 15. lactic acidosis 16. KPC 17. hyperkalemia PLAN care noted and reviewed exam without change except for trach ID reviewed monitor renal function respiratory care as outlined not safe to extubate but can start wean with trach in place Ventilatory care noted position change supportive care as outlined suction as needed nutrition optimized oxygen therapy and titrate prognosis guarded dc planning medications/laboratory data/nursing notes/ICU care reviewed in detail note reviewed and edited care discussed with RN and RT ICU time spent 36 minutes Critical Care - Subjective Interval Events: underwent trach stable at present NAD ROS Limited/Unobtainable: Yes Condition: critical EKG Rhythm: Sinus Rhythm Residuals: minimal Tube Feeding Tolerated: yes I&O: Intake and Output 03/24/17 03/25/17 19:00 07:00 Intake Total 330 ml 770 ml Output Total 760 ml 940 ml Balance -430 ml -170 ml Intake Free Water 60 ml IV Total 110 ml 110 ml Tube Feeding 80 ml 600 ml Other 140 ml Output Urine Total 760 ml 940 ml # Bowel Movements 2 Critical Care - Objective ET-Tube: 6.0 ET Position: 24 Last 24 Hour Vital Signs Date Time Temp Pulse Resp B/P Pulse Ox O2 Delivery O2 Flow Rate FiO2 03/25/17 07:03 70 23 30 03/25/17 06:00 70 18 130/55 96 Mechanical Ventilator 03/25/17 05:29 71 18 30 03/25/17 05:00 69 21 124/67 98 Mechanical Ventilator 03/25/17 04:00 30 03/25/17 04:00 66 03/25/17 04:00 98.7 66 19 130/69 97 Mechanical Ventilator 30 03/25/17 03:30 65 20 30 03/25/17 03:00 73 22 128/58 98 Mechanical Ventilator 03/25/17 02:00 69 22 141/62 99 Mechanical Ventilator 03/25/17 01:30 71 21 30 03/25/17 01:00 67 20 132/51 98 Mechanical Ventilator 30 7/19/17 00:00 67 7/19/17 00:00 30 7/19/17 00:00 98.8 67 18 118/50 95 Mechanical Ventilator 30 7/18/17 23:00 79 16 172/74 100 Mechanical Ventilator 30 7/18/17 22:59 78 16 30 7/18/17 22:00 80 16 100 Mechanical Ventilator 7/18/17 22:00 69 19 136/56 98 Mechanical Ventilator 30 7/18/17 22:00 76 16 100 Mechanical Ventilator 30 7/18/17 21:25 77 20 30 7/18/17 21:18 70 127/53 7/18/17 21:00 68 18 127/53 98 Mechanical Ventilator 30 7/18/17 20:00 68 7/18/17 20:00 30 7/18/17 20:00 98.7 68 17 117/56 98 Mechanical Ventilator 30 7/18/17 19:47 65 20 98 7/18/17 19:30 69 17 30 7/18/17 19:00 69 20 116/52 98 Mechanical Ventilator 30 7/18/17 18:00 98.9 69 18 126/48 100 Mechanical Ventilator 30 7/18/17 17:00 68 20 132/59 98 Mechanical Ventilator 30 7/18/17 16:59 74 16 30 7/18/17 16:00 99.1 65 20 107/48 98 Mechanical Ventilator 30 7/18/17 16:00 30 7/18/17 16:00 67 7/18/17 15:49 79 16 30 7/18/17 14:00 99.1 71 20 125/57 97 Mechanical Ventilator 30 7/18/17 13:45 99.1 7/18/17 13:00 99.3 69 21 132/65 98 Mechanical Ventilator 30 7/18/17 12:44 69 20 30 7/18/17 12:00 30 7/18/17 12:00 72 7/18/17 12:00 99.1 71 20 130/54 97 Mechanical Ventilator 30 7/18/17 11:20 74 19 30 7/18/17 11:00 77 20 137/57 98 Mechanical Ventilator 30 7/18/17 10:00 78 20 90/57 98 Mechanical Ventilator 30 7/18/17 09:22 67 19 100 Mechanical Ventilator 30 7/18/17 09:22 67 19 99 Mechanical Ventilator 30 7/18/17 09:22 30 03/24/17 09:22 67 19 30 03/24/17 09:05 71 159/70 03/24/17 09:00 70 20 158/60 97 Mechanical Ventilator 30 Labs: Labs Test 03/23/17 04:00 03/23/17 07:00 03/24/17 05:00 White Blood Count 17.0 K/UL (4.8-10.8) 12.0 K/UL (4.8-10.8) Red Blood Count 3.49 M/UL (4.70-6.10) 3.02 M/UL (4.70-6.10) Hemoglobin 10.2 G/DL (14.2-18.0) 9.0 G/DL (14.2-18.0) Hematocrit 32.7 % (42.0-52.0) 28.1 % (42.0-52.0) Mean Corpuscular Volume 94 FL (80-99) 93 FL (80-99) Mean Corpuscular Hemoglobin 29.3 PG (27.0-31.0) 29.8 PG (27.0-31.0) Mean Corpuscular Hemoglobin Concent 31.3 G/DL (32.0-36.0) 32.0 G/DL (32.0-36.0) Red Cell Distribution Width 14.8 % (11.6-14.8) 14.3 % (11.6-14.8) Platelet Count 363 K/UL (150-450) 290 K/UL (150-450) Mean Platelet Volume 6.0 FL (6.5-10.1) 6.4 FL (6.5-10.1) Neutrophils (%) (Auto) 78.0 % (45.0-75.0) 76.6 % (45.0-75.0) Lymphocytes (%) (Auto) 16.9 % (20.0-45.0) 17.2 % (20.0-45.0) Monocytes (%) (Auto) 4.0 % (1.0-10.0) 4.5 % (1.0-10.0) Eosinophils (%) (Auto) 0.7 % (0.0-3.0) 1.3 % (0.0-3.0) Basophils (%) (Auto) 0.5 % (0.0-2.0) 0.4 % (0.0-2.0) Sodium Level 144 mEQ/L (135-145) 146 mEQ/L (135-145) Potassium Level 5.7 mEQ/L (3.4-4.9) 4.1 mEQ/L (3.4-4.9) Chloride Level 106 mEQ/L (98-107) 105 mEQ/L (98-107) Carbon Dioxide Level 33 mEQ/L (20-30) 33 mEQ/L (20-30) Anion Gap 5 (5-15) 8 (5-15) Blood Urea Nitrogen 37 mg/dL (7-23) 37 mg/dL (7-23) Creatinine 0.8 mg/dL (0.7-1.2) 0.7 mg/dL (0.7-1.2) Estimat Glomerular Filtration Rate mL/min (>60) mL/min (>60) Glucose Level 208 mg/dL (74-106) 193 mg/dL (74-106) Calcium Level 8.6 mg/dL (8.6-10.2) 8.5 mg/dL (8.6-10.2) Phosphorus Level 4.6 mg/dL (2.5-4.8) Magnesium Level 1.8 mg/dL (1.7-2.5) Total Bilirubin 0.4 mg/dL (0.0-1.2) Aspartate Amino Transf (AST/SGOT) 15 U/L (5-40) Alanine Aminotransferase (ALT/SGPT) 16 U/L (3-41) Alkaline Phosphatase 91 U/L (40-129) Pro-B-Type Natriuretic Peptide 39237 pg/mL (0-450) Total Protein 7.0 g/dL (6.6-8.7) Albumin 2.2 g/dL (3.5-5.2) Globulin 4.8 g/dL Albumin/Globulin Ratio 0.4 (1.0-2.7) Urine Color Pale yellow Urine Appearance Clear Urine pH 6 (4.5-8.0) Urine Specific [place] 1.015 (1.005-1.035) Urine Protein 1+ (NEGATIVE) Urine Glucose (UA) Negative (NEGATIVE) Urine Ketones Negative (NEGATIVE) Urine Occult Blood 2+ (NEGATIVE) Urine Nitrite Negative (NEGATIVE) Urine Bilirubin Negative (NEGATIVE) Urine Urobilinogen Normal MG/DL (0.0-1.0) Urine Leukocyte Esterase 1+ (NEGATIVE) Urine RBC 2-4 /HPF (0 - 0) Urine WBC 5-10 /HPF (0 - 0) Urine Squamous Epithelial Cells Few /LPF (NONE/OCC) Urine Bacteria Few /HPF (NONE) Urine Yeast Few /HPF (NONE) Prothrombin Time 12.0 SEC (9.30-11.50) Prothromb Time International Ratio 1.1 (0.9-1.1) Activated Partial Thromboplast Time 26 SEC (23-33) Objective: GENERAL: The patient is sedated on the ventilator NAD HEENT: Oropharynx is moist. Gag present. NECK: Supple. Carotids 2+. trach in place LUNGS: stable breath sounds and symmetric. No wheezes or rhonchi. CARDIAC: S1 and S2. Regular rate and rhythm. Soft at the parasternal border. No rubs or gallops. ABDOMEN: Soft and nontender. No distention. no HSM; GT EXTREMITIES: No cyanosis. No clubbing. No edema. left heel wound NEUROLOGIC: Grossly nonfocal. still withdrawn reviewed and edited Micro: Microbiology Date/Time Source Procedure Growth Status 03/23/17 07:00 Urine,Clean Catch Urine Culture - Final NO GROWTH AFTER 48 HOURS Complete Accucheck: 176 REJI OJEDA Mar 25, 2017 08:41
[2017-03-25] MEDS: Tamsulosin 0.4mg cap GT SCH (09:42)
[2017-03-25] MEDS: Ferrous Sulfate 300 MG/5 ML UDC GT SCH (09:42)
[2017-03-25] MEDS: sitaGLIPtin 25mg tab GT SCH (09:43)
[2017-03-25] MEDS: Metoprolol 25mg tab ORAL SCH ×2 (09:44→20:17)
[2017-03-25] MEDS: Ascorbic Acid 500mg tab GT SCH (09:44)
[2017-03-25] MEDS: Phospha 250 Neutral tab ORAL SCH ×3 (09:45→17:29)
[2017-03-25 09:49] LABS: BASOPHILS % (AUTO) 0.5 % (0.0-2.0); EOSINOPHILS % (AUTO) 1.5 % (0.0-3.0); LYMPHOCYTES % (AUTO) 14.6 % (20.0-45.0); MEAN CORPUSCULAR HEMOGLOBIN 29.1 PG (27.0-31.0); MEAN CORPUSCULAR HGB CONC 31.6 G/DL (32.0-36.0); MEAN CORPUSCULAR VOLUME 92 FL (80-99); MEAN PLATELET VOLUME 6.3 FL (6.5-10.1); MONOCYTES % (AUTO) 5.6 % (1.0-10.0); NEUTROPHILS % (AUTO) 77.9 % (45.0-75.0); PLATELET COUNT 292 K/UL (150-450); RED CELL DISTRIBUTION WIDTH 15.1 % (11.6-14.8); WHITE BLOOD COUNT 11.5 K/UL (4.8-10.8)
[2017-03-25] MEDS: Heparin 5000 units/ml inj SUBQ SCH ×2 (09:51→20:19)
[2017-03-25] MEDS: Bactrim Susp 20ml PEG SCH (10:01)
[2017-03-25] MEDS: Doxycycline 100mg in D5W 110ml IV SCH ×2 (10:01→20:16)
[2017-03-25 10:04] LABS: ALANINE AMINOTRANSFERASE 9 U/L (3-41); ALBUMIN/GLOBULIN RATIO 0.4 (1.0-2.7); ANION GAP 5 (5-15); ASPARTATE AMINO TRANSFERASE 11 U/L (5-40); CARBON DIOXIDE 32 mEQ/L (20-30); CHLORIDE 104 mEQ/L (98-107); CREATININE 0.8 mg/dL (0.7-1.2); HEMOLYSIS 0; POTASSIUM 3.8 mEQ/L (3.4-4.9); SODIUM 141 mEQ/L (135-145); TOTAL PROTEIN 6.1 g/dL (6.6-8.7)
[2017-03-25] MEDS ORDERED: NS 275ml ONE (10:24)
[2017-03-25] MEDS: Gentamicin for inhalation INH SCH ×2 (10:34→21:22)
--- NOTE | 2017-03-25 11:41 | General Progress Note ---
Progress Note Progress Note Surgery: patient seen and examined at bedside. doing well since surgery. trach intact and functional. no issues. no acute events. dressings removed and new dressings applied. if any issues with trach please call me neo. thank you Aris Rahman Mar 25, 2017 11:41
--- NOTE | 2017-03-25 11:52 | Infectious Diseases Prog Note ---
"Assessment/Plan Assessment/Plan antibiotics : inhaled gentamicin, bactrim, doxycycline A 1. fungal UTI s/p rx 2. klebsiella | acenitobacter pneumonia 3. septic shock 4. respiratory failure 5. leucocytosis resolved 6. DM P 1. continue inhaled gentamicin 1 more day 2. d/c bactrim 3. continue doxycycline 1 more day 4. will follow up cultures Subjective ROS Limited/Unobtainable: Yes Allergies: Coded Allergies: No Known Allergies (Unverified , 01/07/17) Objective Vital Signs Last 24 Hour Vital Signs Date Time Temp Pulse Resp B/P Pulse Ox O2 Delivery O2 Flow Rate FiO2 03/25/17 11:00 70 18 128/54 98 Mechanical Ventilator 30 03/25/17 10:43 73 16 100 Mechanical Ventilator 30 03/25/17 10:43 73 20 30 03/25/17 10:38 30 03/25/17 10:34 70 16 99 Mechanical Ventilator 30 03/25/17 10:00 70 18 135/60 98 Mechanical Ventilator 30 03/25/17 09:44 73 145/61 03/25/17 09:00 70 18 145/58 96 Mechanical Ventilator 30 03/25/17 08:41 69 20 30 03/25/17 08:00 70 03/25/17 08:00 98.5 70 18 130/55 95 Mechanical Ventilator 30 03/25/17 07:03 70 23 30 03/25/17 06:00 70 18 130/55 96 Mechanical Ventilator 30 03/25/17 05:29 71 18 30 03/25/17 05:00 69 21 124/67 98 Mechanical Ventilator 30 03/25/17 04:00 30 03/25/17 04:00 66 03/25/17 04:00 98.7 66 19 130/69 97 Mechanical Ventilator 30 03/25/17 03:30 65 20 30 03/25/17 03:00 73 22 128/58 98 Mechanical Ventilator 30 03/25/17 02:00 69 22 141/62 99 Mechanical Ventilator 30 03/25/17 01:30 71 21 30 03/25/17 01:00 67 20 132/51 98 Mechanical Ventilator 30 03/25/17 00:00 67 03/25/17 00:00 30 03/25/17 00:00 98.8 67 18 118/50 95 Mechanical Ventilator 30 03/24/17 23:00 79 16 172/74 100 Mechanical Ventilator 30 03/24/17 22:59 78 16 30 17 22:00 80 16 100 Mechanical Ventilator 03/24/17 22:00 69 19 136/56 98 Mechanical Ventilator 30 03/24/17 22:00 76 16 100 Mechanical Ventilator 30 03/24/17 21:25 77 20 30 17 21:18 70 127/53 03/24/17 21:00 68 18 127/53 98 Mechanical Ventilator 30 03/24/17 20:00 68 03/24/17 20:00 30 03/24/17 20:00 98.7 68 17 117/56 98 Mechanical Ventilator 30 03/24/17 19:47 65 20 98 03/24/17 19:30 69 17 30 03/24/17 19:00 69 20 116/52 98 Mechanical Ventilator 30 03/24/17 18:00 98.9 69 18 126/48 100 Mechanical Ventilator 30 03/24/17 17:00 68 20 132/59 98 Mechanical Ventilator 30 03/24/17 16:59 74 16 30 03/24/17 16:00 99.1 65 20 107/48 98 Mechanical Ventilator 30 03/24/17 16:00 30 03/24/17 16:00 67 03/24/17 15:49 79 16 30 03/24/17 14:00 99.1 71 20 125/57 97 Mechanical Ventilator 30 03/24/17 13:45 99.1 03/24/17 13:00 99.3 69 21 132/65 98 Mechanical Ventilator 30 03/24/17 12:44 69 20 30 03/24/17 12:00 30 03/24/17 12:00 72 03/24/17 12:00 99.1 71 20 130/54 97 Mechanical Ventilator 30 Height (Feet): 6 Height (Inches): 0.00 Weight (Pounds): 184 HEENT: status post trach Respiratory/Chest: lungs clear Cardiovascular: normal rate, regular rhythm, no gallop/murmur Abdomen: soft, non tender, other - GT Extremities: other - + edema, right arm PICC Microbiology Date/Time Source Procedure Growth Status 03/23/17 07:00 Urine,Clean Catch Urine Culture - Final NO GROWTH AFTER 48 HOURS Complete Laboratory Tests Test 03/25/17 09:20 White Blood Count 11.5 K/UL (4.8-10.8) H Red Blood Count 3.10 M/UL (4.70-6.10) L Hemoglobin 9.0 G/DL (14.2-18.0) L Hematocrit 28.6 % (42.0-52.0) L Mean Corpuscular Volume 92 FL (80-99) Mean Corpuscular Hemoglobin 29.1 PG (27.0-31.0) Mean Corpuscular Hemoglobin Concent 31.6 G/DL (32.0-36.0) L Red Cell Distribution Width 15.1 % (11.6-14.8) H Platelet Count 292 K/UL (150-450) Mean Platelet Volume 6.3 FL (6.5-10.1) L Neutrophils (%) (Auto) 77.9 % (45.0-75.0) H Lymphocytes (%) (Auto) 14.6 % (20.0-45.0) L Monocytes (%) (Auto) 5.6 % (1.0-10.0) Eosinophils (%) (Auto) 1.5 % (0.0-3.0) Basophils (%) (Auto) 0.5 % (0.0-2.0) Sodium Level 141 mEQ/L (135-145) Potassium Level 3.8 mEQ/L (3.4-4.9) Chloride Level 104 mEQ/L (98-107) Carbon Dioxide Level 32 mEQ/L (20-30) H Anion Gap 5 (5-15) Blood Urea Nitrogen 30 mg/dL (7-23) H Creatinine 0.8 mg/dL (0.7-1.2) Estimat Glomerular Filtration Rate mL/min (>60) Glucose Level 177 mg/dL (74-106) H Calcium Level 8.0 mg/dL (8.6-10.2) L Total Bilirubin 0.4 mg/dL (0.0-1.2) Aspartate Amino Transf (AST/SGOT) 11 U/L (5-40) Alanine Aminotransferase (ALT/SGPT) 9 U/L (3-41) Alkaline Phosphatase 63 U/L (40-129) Total Protein 6.1 g/dL (6.6-8.7) L Albumin 1.9 g/dL (3.5-5.2) L Globulin 4.2 g/dL Albumin/Globulin Ratio 0.4 (1.0-2.7) L VINICIO VAUGHAN Mar 25, 2017 11:52"
[2017-03-25] MEDS: Dyna-Hex 2% Top Sol 8oz TOPIC SCH (20:16)
[2017-03-26] VITALS: BP 140/70
[2017-03-26] MEDS ORDERED: KCl 10% 20 mEq/15ml liquid NG ONE (00:45)
--- NOTE | 2017-03-26 01:15 | Progress Note ---
DATE: 03/25/2017 SUBJECTIVE: The patient remains in the intensive care unit. Orally intubated. He is status post tracheostomy and remains ventilated. He is off pressors. OBJECTIVE: VITAL SIGNS: Blood pressure 130/55, pulse 70, respirations 18. NECK: Thin secretions. LUNGS: Coarse breath sounds. Scattered rhonchi. HEART: Regular rhythm and rate. Normal S1 and S2. ABDOMEN: Soft. EXTREMITIES: Trace edema. LABORATORY DATA: White count 11.5, hemoglobin 9. Sodium 141, potassium 3.8, bicarbonate 32, BUN 30, and creatinine 0.8. Albumin 1.9. IMPRESSION: Acute myocardial ischemia. PLAN: 1. Protein supplement. 2. Ventilator support with weaning antimicrobials. 3. Diuresis. 4. Respiratory hygiene. 5. Deep venous thrombosis and stress ulcer prophylaxis. 6. Continue beta blockade. Stanislav Jain M.D. DR: MADELIN JOB#: [id number] CC:
[2017-03-26 04:00] VITALS: BP 140/82
[2017-03-26] MEDS: NovoLOG Insulin Flexpen SUBQ SCH (06:15)
[2017-03-26] MEDS ORDERED: Zolpidem 5mg tab GT PRN (06:31)
[2017-03-26] MEDS ORDERED: Docusate 100mg/10ml Liq GT PRN (06:32)
[2017-03-26] MEDS ORDERED: Milk of Magnesia 30ml Ud GT PRN (06:35)
[2017-03-26 08:00] VITALS: BP 127/68
--- NOTE | 2017-03-26 08:13 | General Progress Note ---
Assessment/Plan Problem List: (1) Shock ICD Codes: R57.9 - Shock, unspecified SNOMED: 24568173 (2) toxic metabo (3) toxic metabolic encephalopathy 2/2 infecion/metabolc derangement (4) Respiratory failure ICD Codes: J96.90 - Respiratory failure, unspecified, unspecified whether with hypoxia or hypercapnia SNOMED: 920848250 Qualifiers: Qualified Codes: J96.01 - Acute respiratory failure with hypoxia (5) Renal insufficiency ICD Codes: N28.9 - Disorder of kidney and ureter, unspecified SNOMED: 212595935, 546248885 (6) UTI (urinary tract infection) ICD Codes: N39.0 - Urinary tract infection, site not specified SNOMED: 03583963 Qualifiers: Qualified Codes: T83.511A - Infection and inflammatory reaction due to indwelling urethral catheter, initial encounter; N39.0 - Urinary tract infection , site not specified (7) Pneumonia ICD Codes: J18.9 - Pneumonia, unspecified organism SNOMED: 611876074 Qualifiers: Qualified Codes: J18.9 - Pneumonia, unspecified organism (8) Severe sepsis ICD Codes: A41.9 - Sepsis, unspecified organism; R65.20 - Severe sepsis without septic shock SNOMED: 03354468 (9) Pressure ulcer, heel ICD Codes: L89.609 - Pressure ulcer of unspecified heel, unspecified stage SNOMED: 262215948 (10) Pacemaker ICD Codes: Z95.0 - Presence of cardiac pacemaker SNOMED: 120534357, 206062881 (11) Malnutrition ICD Codes: E46 - Unspecified protein-calorie malnutrition SNOMED: 9320375 Status: stable, progressing Assessment/Plan iv abx follow up repeat cultures monitor wbc wean vent as able gt feeds monitor labs laxatives wound care stable for darlene poc d/.w Subjective ROS Limited/Unobtainable: Yes Constitutional: Reports: malaise, weakness HEENT: Reports: no symptoms Cardiovascular: Reports: no symptoms Respiratory: Reports: cough, shortness of breath, sputum Gastrointestinal/Abdominal: Reports: difficulty swallowing Genitourinary: Reports: no symptoms Neurologic/Psychiatric: Reports: no symptoms Endocrine: Reports: no symptoms Hematologic/Lymphatic: Reports: anemia Allergies: Coded Allergies: No Known Allergies (Unverified , 01/07/17) All Systems: reviewed and negative except above Subjective s/p uncomplicated trach. alert. tracks. does not follow commands. d/w rn. no overnight events. tolerating feeds. now on the darlene. Objective Last 24 Hour Vital Signs Date Time Temp Pulse Resp B/P Pulse Ox O2 Delivery O2 Flow Rate FiO2 03/26/17 08:00 30 03/26/17 07:30 64 24 30 03/26/17 05:20 69 25 30 03/26/17 04:00 97.9 70 19 140/82 97 Mechanical Ventilator 03/26/17 04:00 30 03/26/17 03:48 65 03/26/17 03:09 70 24 30 03/26/17 01:15 66 26 30 03/26/17 00:00 30 03/26/17 00:00 97.9 80 19 140/70 97 Mechanical Ventilator 03/26/17 00:00 63 03/25/17 23:29 64 21 30 03/25/17 23:00 98.1 75 19 142/69 98 Mechanical Ventilator 03/25/17 22:30 98.3 76 20 141/56 100 Mechanical Ventilator 30 03/25/17 22:00 73 16 141/64 98 Mechanical Ventilator 30 03/25/17 21:49 70 18 100 Mechanical Ventilator 30 03/25/17 21:23 30 03/25/17 21:18 68 20 98 Mechanical Ventilator 30 03/25/17 21:17 68 20 30 03/25/17 21:00 69 21 119/48 98 Mechanical Ventilator 30 03/25/17 21:00 71 03/25/17 20:17 76 122/55 03/25/17 20:00 30 03/25/17 20:00 98.3 71 21 122/55 98 Mechanical Ventilator 30 03/25/17 19:03 74 20 30 03/25/17 19:00 69 20 126/56 98 Mechanical Ventilator 30 03/25/17 18:00 76 16 124/56 99 Mechanical Ventilator 30 03/25/17 17:00 79 16 115/60 98 Mechanical Ventilator 30 03/25/17 16:52 81 17 30 03/25/17 16:00 79 03/25/17 16:00 99.2 75 16 110/52 97 Mechanical Ventilator 30 03/25/17 16:00 30 03/25/17 15:00 78 16 108/48 96 Mechanical Ventilator 30 03/25/17 14:38 74 20 30 03/25/17 14:00 72 16 104/45 96 Mechanical Ventilator 30 03/25/17 13:00 74 16 125/72 98 Mechanical Ventilator 30 03/25/17 12:40 77 20 30 03/25/17 12:00 67 03/25/17 12:00 30 03/25/17 12:00 98.5 67 16 132/64 98 Mechanical Ventilator 30 03/25/17 11:00 70 18 128/54 98 Mechanical Ventilator 30 03/25/17 10:43 73 16 100 Mechanical Ventilator 30 03/25/17 10:43 73 20 30 03/25/17 10:38 30 03/25/17 10:34 70 16 99 Mechanical Ventilator 30 03/25/17 10:00 70 18 135/60 98 Mechanical Ventilator 30 03/25/17 09:44 73 145/61 03/25/17 09:00 70 18 145/58 96 Mechanical Ventilator 03/25/17 08:41 69 20 30 Intake and Output 03/25/17 03/26/17 19:00 07:00 Intake Total 760 ml 910 ml Output Total 400 ml 1660 ml Balance 360 ml -750 ml Intake Free Water 100 ml 200 ml IV Total 110 ml Tube Feeding 550 ml 650 ml Other 60 ml Output Urine Total 400 ml 1660 ml # Bowel Movements 4 3 Laboratory Tests 03/25/17 09:20: White Blood Count 11.5H, Red Blood Count 3.10L, Hemoglobin 9.0L, Hematocrit 28.6L, Mean Corpuscular Volume 92, Mean Corpuscular Hemoglobin 29.1, Mean Corpuscular Hemoglobin Concent 31.6L, Red Cell Distribution Width 15.1H, Platelet Count 292, Mean Platelet Volume 6.3L, Neutrophils (%) (Auto) 77.9H, Lymphocytes (%) (Auto) 14.6L, Monocytes (%) (Auto) 5.6, Eosinophils (%) (Auto) 1.5, Basophils (%) (Auto) 0.5, Sodium Level 141, Potassium Level 3.8, Chloride Level 104, Carbon Dioxide Level 32H, Anion Gap 5, Blood Urea Nitrogen 30H, Creatinine 0.8, Estimat Glomerular Filtration Rate , Glucose Level 177H, Calcium Level 8.0L, Total Bilirubin 0.4, Aspartate Amino Transf (AST/SGOT) 11, Alanine Aminotransferase (ALT/SGPT) 9, Alkaline Phosphatase 63, Total Protein 6.1L, Albumin 1.9L, Globulin 4.2, Albumin/Globulin Ratio 0.4L Height (Feet): 6 Height (Inches): 0.00 Weight (Pounds): 183 Objective General Appearance: WD/WN, lethargic, confused Neck: supple, trach med line. no bleeding Cardiovascular: regular rhythm Respiratory/Chest: lungs clear Abdomen: normal bowel sounds, non tender, soft, no organomegaly Edema: no edema noted Arm (L), no edema noted Arm (R), no edema noted Leg (L), no edema noted Leg (R), no edema noted Pedal (L), no edema noted Pedal (R), no edema noted Generalized Neurologic: disoriented, unresponsive Skin: normal pigmentation WENDIE CASTELLANOS Mar 26, 2017 08:13
--- NOTE | 2017-03-26 08:45 | Critical Care Progress Note ---
Assessment/Plan Assessment/Plan 1. Respiratory failure 2. Chronic renal failure. 3. Anemia. 4. Leukocytosis- now worse 5. Unstageable left heel ulcer, chronic with Kleb 6. Acute on chronic encephalopathy. 7. Gastrostomy tube 8. Aspiration. 9. Paroxysmal atrial fibrillation. 10. Permanent pacemaker. 11. History of Klebsiella urinary tract infection. 12. Failure to thrive 13. Hypertension. 14. Diabetes mellitus. 15. lactic acidosis 16. KPC 17. hyperkalemia PLAN care noted and reviewed exam without change ID reviewed monitor renal function respiratory care as outlined Ventilatory care noted position change supportive care as outlined suction as needed nutrition optimized oxygen therapy and titrate prognosis guarded dc planning today to SNF medications/laboratory data/nursing notes reviewed in detail note reviewed and edited care discussed with RN and RT Critical Care - Subjective Interval Events: underwent trach transferred to [facility] no distress ROS Limited/Unobtainable: Yes Condition: stable EKG Rhythm: Sinus Rhythm Residuals: minimal Tube Feeding Tolerated: yes I&O: Intake and Output 03/25/17 03/26/17 19:00 07:00 Intake Total 760 ml 910 ml Output Total 400 ml 1660 ml Balance 360 ml -750 ml Intake Free Water 100 ml 200 ml IV Total 110 ml Tube Feeding 550 ml 650 ml Other 60 ml Output Urine Total 400 ml 1660 ml # Bowel Movements 4 3 Critical Care - Objective ET-Tube: 6.0 ET Position: 24 Last 24 Hour Vital Signs Date Time Temp Pulse Resp B/P Pulse Ox O2 Delivery O2 Flow Rate FiO2 03/26/17 08:00 99.5 73 25 127/68 99 Mechanical Ventilator 30 03/26/17 08:00 30 03/26/17 07:32 66 03/26/17 07:30 64 24 30 03/26/17 05:20 69 25 30 03/26/17 04:00 97.9 70 19 140/82 97 Mechanical Ventilator 03/26/17 04:00 30 03/26/17 03:48 65 03/26/17 03:09 70 24 30 03/26/17 01:15 66 26 30 03/26/17 00:00 30 03/26/17 00:00 97.9 80 19 140/70 97 Mechanical Ventilator 03/26/17 00:00 63 03/25/17 23:29 64 21 30 03/25/17 23:00 98.1 75 19 142/69 98 Mechanical Ventilator 03/25/17 22:30 98.3 76 20 141/56 100 Mechanical Ventilator 30 03/25/17 22:00 73 16 141/64 98 Mechanical Ventilator 30 03/25/17 21:49 70 18 100 Mechanical Ventilator 30 03/25/17 21:23 30 03/25/17 21:18 68 20 98 Mechanical Ventilator 30 03/25/17 21:17 68 20 30 03/25/17 21:00 69 21 119/48 98 Mechanical Ventilator 30 03/25/17 21:00 71 03/25/17 20:17 76 122/55 03/25/17 20:00 30 03/25/17 20:00 98.3 71 21 122/55 98 Mechanical Ventilator 30 03/25/17 19:03 74 20 30 03/25/17 19:00 69 20 126/56 98 Mechanical Ventilator 30 03/25/17 18:00 76 16 124/56 99 Mechanical Ventilator 30 03/25/17 17:00 79 16 115/60 98 Mechanical Ventilator 30 03/25/17 16:52 81 17 30 03/25/17 16:00 79 03/25/17 16:00 99.2 75 16 110/52 97 Mechanical Ventilator 30 03/25/17 16:00 30 03/25/17 15:00 78 16 108/48 96 Mechanical Ventilator 30 03/25/17 14:38 74 20 30 03/25/17 14:00 72 16 104/45 96 Mechanical Ventilator 30 03/25/17 13:00 74 16 125/72 98 Mechanical Ventilator 30 03/25/17 12:40 77 20 30 03/25/17 12:00 67 03/25/17 12:00 30 03/25/17 12:00 98.5 67 16 132/64 98 Mechanical Ventilator 30 03/25/17 11:00 70 18 128/54 98 Mechanical Ventilator 30 03/25/17 10:43 73 16 100 Mechanical Ventilator 30 03/25/17 10:43 73 20 30 03/25/17 10:38 30 03/25/17 10:34 70 16 99 Mechanical Ventilator 30 03/25/17 10:00 70 18 135/60 98 Mechanical Ventilator 30 03/25/17 09:44 73 145/61 03/25/17 09:00 70 18 145/58 96 Mechanical Ventilator 30 Labs: Labs Test 03/24/17 05:00 03/25/17 09:20 White Blood Count 12.0 K/UL (4.8-10.8) 11.5 K/UL (4.8-10.8) Red Blood Count 3.02 M/UL (4.70-6.10) 3.10 M/UL (4.70-6.10) Hemoglobin 9.0 G/DL (14.2-18.0) 9.0 G/DL (14.2-18.0) Hematocrit 28.1 % (42.0-52.0) 28.6 % (42.0-52.0) Mean Corpuscular Volume 93 FL (80-99) 92 FL (80-99) Mean Corpuscular Hemoglobin 29.8 PG (27.0-31.0) 29.1 PG (27.0-31.0) Mean Corpuscular Hemoglobin Concent 32.0 G/DL (32.0-36.0) 31.6 G/DL (32.0-36.0) Red Cell Distribution Width 14.3 % (11.6-14.8) 15.1 % (11.6-14.8) Platelet Count 290 K/UL (150-450) 292 K/UL (150-450) Mean Platelet Volume 6.4 FL (6.5-10.1) 6.3 FL (6.5-10.1) Neutrophils (%) (Auto) 76.6 % (45.0-75.0) 77.9 % (45.0-75.0) Lymphocytes (%) (Auto) 17.2 % (20.0-45.0) 14.6 % (20.0-45.0) Monocytes (%) (Auto) 4.5 % (1.0-10.0) 5.6 % (1.0-10.0) Eosinophils (%) (Auto) 1.3 % (0.0-3.0) 1.5 % (0.0-3.0) Basophils (%) (Auto) 0.4 % (0.0-2.0) 0.5 % (0.0-2.0) Prothrombin Time 12.0 SEC (9.30-11.50) Prothromb Time International Ratio 1.1 (0.9-1.1) Activated Partial Thromboplast Time 26 SEC (23-33) Sodium Level 146 mEQ/L (135-145) 141 mEQ/L (135-145) Potassium Level 4.1 mEQ/L (3.4-4.9) 3.8 mEQ/L (3.4-4.9) Chloride Level 105 mEQ/L (98-107) 104 mEQ/L (98-107) Carbon Dioxide Level 33 mEQ/L (20-30) 32 mEQ/L (20-30) Anion Gap 8 (5-15) 5 (5-15) Blood Urea Nitrogen 37 mg/dL (7-23) 30 mg/dL (7-23) Creatinine 0.7 mg/dL (0.7-1.2) 0.8 mg/dL (0.7-1.2) Estimat Glomerular Filtration Rate mL/min (>60) mL/min (>60) Glucose Level 193 mg/dL (74-106) 177 mg/dL (74-106) Calcium Level 8.5 mg/dL (8.6-10.2) 8.0 mg/dL (8.6-10.2) Total Bilirubin 0.4 mg/dL (0.0-1.2) Aspartate Amino Transf (AST/SGOT) 11 U/L (5-40) Alanine Aminotransferase (ALT/SGPT) 9 U/L (3-41) Alkaline Phosphatase 63 U/L (40-129) Total Protein 6.1 g/dL (6.6-8.7) Albumin 1.9 g/dL (3.5-5.2) Globulin 4.2 g/dL Albumin/Globulin Ratio 0.4 (1.0-2.7) Objective: GENERAL: The patient is sedated on the ventilator NAD HEENT: Oropharynx is moist. Gag present. NECK: Supple. Carotids 2+. trach in place LUNGS: stable breath sounds and symmetric. No wheezes or rhonchi. CARDIAC: S1 and S2. Regular rate and rhythm. Soft at the parasternal border. No rubs or gallops. ABDOMEN: Soft and nontender. No distention. no HSM; GT EXTREMITIES: No cyanosis. No clubbing. No edema. left heel wound NEUROLOGIC: Grossly nonfocal. still withdrawn reviewed and edited Accucheck: 178 REJI OJEDA Mar 26, 2017 08:45
[2017-03-26] MEDS ORDERED: Doxycycline Hyclate 100 MG in D5W 110 ML IV SCH (09:00)
[2017-03-26] MEDS ORDERED: Metoprolol 50mg tab ORAL SCH (09:00)
[2017-03-26] MEDS ORDERED: Tamsulosin 0.4mg cap GT SCH (09:00)
[2017-03-26] MEDS ORDERED: Ferrous Sulfate 300 MG/5 ML UDC GT SCH (09:00)
[2017-03-26] MEDS ORDERED: sitaGLIPtin 25mg tab GT SCH (09:00)
[2017-03-26] MEDS ORDERED: Heparin 5000 units/ml inj SUBQ SCH (09:00)
[2017-03-26] MEDS ORDERED: Ascorbic Acid 500mg tab GT SCH (09:00)
[2017-03-26] MEDS ORDERED: Metoprolol 25mg tab ORAL SCH (09:00)
[2017-03-26] MEDS ORDERED: Gentamicin for inhalation INH SCH (10:00)
--- NOTE | 2017-03-26 10:03 | Infectious Diseases Prog Note ---
Assessment/Plan Assessment/Plan A 1. Leukocytosis improving 2. MDR Klebsiella & Acinetobacter pneumonia 3. septic shock resolved 4. respiratory failure 5. leucocytosis resolved 6. DM 7. Encephalopathy 8. multiple pressure ulcers P 1. discontinue Gentamicin inhaler & Doxycycline 2. discontinue PICC line before discharge Subjective ROS Limited/Unobtainable: Yes Constitutional: Reports: other - tranferred out of ICU Respiratory: Reports: other - had tracheostomy Allergies: Coded Allergies: No Known Allergies (Unverified , 01/07/17) Objective Vital Signs Last 24 Hour Vital Signs Date Time Temp Pulse Resp B/P Pulse Ox O2 Delivery O2 Flow Rate FiO2 03/26/17 08:58 66 22 30 03/26/17 08:44 73 127/68 03/26/17 08:00 99.5 73 25 127/68 99 Mechanical Ventilator 30 03/26/17 08:00 30 03/26/17 07:32 66 03/26/17 07:30 64 24 30 03/26/17 05:20 69 25 30 03/26/17 04:00 97.9 70 19 140/82 97 Mechanical Ventilator 03/26/17 04:00 30 03/26/17 03:48 65 03/26/17 03:09 70 24 30 03/26/17 01:15 66 26 30 03/26/17 00:00 30 03/26/17 00:00 97.9 80 19 140/70 97 Mechanical Ventilator 03/26/17 00:00 63 03/25/17 23:29 64 21 30 03/25/17 23:00 98.1 75 19 142/69 98 Mechanical Ventilator 03/25/17 22:30 98.3 76 20 141/56 100 Mechanical Ventilator 30 03/25/17 22:00 73 16 141/64 98 Mechanical Ventilator 30 03/25/17 21:49 70 18 100 Mechanical Ventilator 30 03/25/17 21:23 30 03/25/17 21:18 68 20 98 Mechanical Ventilator 30 03/25/17 21:17 68 20 30 03/25/17 21:00 69 21 119/48 98 Mechanical Ventilator 30 03/25/17 21:00 71 03/25/17 20:17 76 122/55 03/25/17 20:00 30 03/25/17 20:00 98.3 71 21 122/55 98 Mechanical Ventilator 30 03/25/17 19:03 74 20 30 03/25/17 19:00 69 20 126/56 98 Mechanical Ventilator 30 03/25/17 18:00 76 16 124/56 99 Mechanical Ventilator 30 03/25/17 17:00 79 16 115/60 98 Mechanical Ventilator 30 03/25/17 16:52 81 17 30 03/25/17 16:00 79 03/25/17 16:00 99.2 75 16 110/52 97 Mechanical Ventilator 30 03/25/17 16:00 30 03/25/17 15:00 78 16 108/48 96 Mechanical Ventilator 30 03/25/17 14:38 74 20 30 03/25/17 14:00 72 16 104/45 96 Mechanical Ventilator 30 03/25/17 13:00 74 16 125/72 98 Mechanical Ventilator 30 03/25/17 12:40 77 20 30 03/25/17 12:00 67 03/25/17 12:00 30 03/25/17 12:00 98.5 67 16 132/64 98 Mechanical Ventilator 30 03/25/17 11:00 70 18 128/54 98 Mechanical Ventilator 30 03/25/17 10:43 73 16 100 Mechanical Ventilator 30 03/25/17 10:43 73 20 30 03/25/17 10:38 30 03/25/17 10:34 70 16 99 Mechanical Ventilator 30 03/25/17 10:00 70 18 135/60 98 Mechanical Ventilator 30 Height (Feet): 6 Height (Inches): 0.00 Weight (Pounds): 183 HEENT: status post trach Respiratory/Chest: lungs clear, other - on ventilator Cardiovascular: normal rate Abdomen: soft, non tender, other - GT feeding Extremities: no edema, other - R arm PICC line Skin: ulcers Neurologic/Psychiatric: aphasia Current Medications Medications (Trade) Dose Ordered Sig/Subhash Route PRN Reason Start Time Stop Time Status Last Admin Dose Admin Acetaminophen (Tylenol) 650 mg Q4H PRN ORAL Mild Pain/Temp > 100.5 03/26/17 06:32 04/25/17 06:31 Ascorbic Acid (Vitamin C) 500 mg DAILY GT 03/26/17 09:00 04/25/17 08:59 03/26/17 08:45 Atorvastatin Calcium (Lipitor) 10 mg BEDTIME GT 03/26/17 21:00 04/25/17 20:59 Chlorhexidine Gluconate (Laura-Hex 2%) 1 applic QHS TOPIC 03/26/17 21:00 04/25/17 20:59 Dextrose (Dextrose 50%) STAT PRN IV Hypoglycemia 03/26/17 06:32 04/25/17 06:31 Docusate Sodium (Colace) 250 mg BEDTIME PRN GT Constipation 03/26/17 06:32 04/25/17 06:31 Doxycycline Hyclate/Dextrose (Vibramycin/D5W) 110 ml @ 110 mls/hr Q12HR IV 03/26/17 09:00 04/02/17 08:59 03/26/17 08:49 Ferrous Sulfate (Feosol) 325 mg DAILY GT 03/26/17 09:00 04/25/17 08:59 03/26/17 08:45 Finasteride (Proscar) 5 mg DAILY GT 03/26/17 09:00 04/25/17 08:59 03/26/17 08:44 Gentamicin Sulfate 300 mg 300 mg Q12HR@10,22 INH 03/26/17 10:00 04/02/17 09:59 Heparin Sodium (Porcine) (Heparin 5000 units/ml) 5,000 units EVERY 12 HOURS SUBQ 03/26/17 09:00 04/25/17 08:59 03/26/17 08:49 Insulin Aspart (NovoLOG) EVERY 6 HOURS SUBQ 03/26/17 12:00 04/25/17 11:59 Lansoprazole (Prevacid) 30 mg DAILY GT 03/26/17 09:00 04/25/17 08:59 03/26/17 08:44 Magnesium Hydroxide (Mom) 30 ml DAILYPRN PRN GT Constipation 03/26/17 06:35 04/25/17 06:34 Metoprolol Tartrate (Lopressor) 50 mg Q12HR ORAL 03/26/17 09:00 04/25/17 08:59 03/26/17 08:44 Sitagliptin Phosphate (Januvia) 50 mg DAILY GT 03/26/17 09:00 04/25/17 08:59 03/26/17 08:44 Tamsulosin HCl (Flomax) 0.4 mg DAILY GT 03/26/17 09:00 04/25/17 08:59 03/26/17 08:44 Zolpidem Tartrate (Ambien) 5 mg HSPRN PRN GT Insomnia 03/26/17 06:31 04/25/17 06:30 ABDOULAYE ALFONSO Mar 26, 2017 10:03
[2017-03-26] MEDS ORDERED: NS 275ml ONE ×2 (10:42→15:59)
[2017-03-26 12:00] VITALS: BP 128/71
[2017-03-26] MEDS ORDERED: NovoLOG Insulin Flexpen SUBQ SCH (12:00)
[2017-03-26] MEDS ORDERED: Dyna-Hex 2% Top Sol 8oz TOPIC SCH (21:00)
--- NOTE | 2017-03-27 04:00 | Progress Note ---
DATE: 03/26/2017 CARDIOLOGY PROGRESS NOTE SUBJECTIVE: The patient is on ventilator support, following trach, no apparent distress. Continues with weaning trials, not able to use a trach collar yet. Atrial fibrillation with ventricular pacing. OBJECTIVE: VITAL SIGNS: Blood pressure 140/82, pulse 70, and respirations 19. LUNGS: Coarse breath sounds. HEART: Irregularly irregular rhythm. Normal S1 and S2. ABDOMEN: Soft. EXTREMITIES: Trace edema. LABORATORY DATA: Reviewed. MEDICATION: Medication regimen reviewed. IMPRESSION: 1. Permanent pacemaker. 2. Paroxysmal atrial fibrillation. 3. Acute on chronic diastolic congestive heart failure. 4. Respiratory failure, status post tracheostomy. 5. Sepsis with shock recovered. PLAN: 1. Continue medication regimen . 2. Periodic diuresis based on clinical parameters. 3. Expect mobilization of extravascular fluid with improved nutrition. 4. DVT and stress ulcer prophylaxis. 5. Ventilator support. Stable for transfer to subacute facility. 6. We will arrange pacemaker interrogation in six months. Stanislav Jain M.D. DR: MADELIN JOB#: [id number] CC:
--- NOTE | 2017-03-27 13:53 | Discharge Summary ---
Discharge Summary Hospital Course Date of Admission Mar 13, 2017 at 18:56 Date of Discharge Mar 26, 2017 at 16:00 Admitting Diagnosis pneumonia/resp failure HPI Daniel Kruger is a 82 year old male who was admitted on Mar 13, 2017 at 18: 56 for Pneumonia/Respiratory Failure Hospital Course [id number] Discharge Discharge Disposition Patient was discharged to SNF/Subacute Facility(03) Discharge Diagnoses: Jeanie Gonzalez NP Mar 27, 2017 13:53
--- NOTE | 2017-03-28 04:15 | Discharge Summary 2 SIG ---
DATE OF ADMISSION: 03/13/2017 DATE OF DISCHARGE: 03/26/2017 CONSULTANTS: 1. Stanislav Jain M.D. 2. Rajeev Carlos M.D. 3. Ba Clemente MD. 4. Aris Rahman M.D. 5. Fazal Castellanos M.D. BRIEF HOSPITAL COURSE: The patient is an 82-year-old male with history of dementia, aspiration pneumonia, dysphagia, status post G-tube, history of conduction system disease, status post pacemaker, diabetes mellitus, chronic kidney disease, and chronic obstructive pulmonary disease and was transferred from nursing facility for complaints of shortness of breath, fever and chills. On evaluation at ED, the patient was hypotensive. He was initially placed on BiPAP, but was not able to tolerate blood pressure. Did not respond with intravenous with aggressive fluid resuscitation. He was then orally intubated and a central line was placed to the right femoral and Levophed was started. He was then admitted to ICU for acute respiratory failure and septic shock with lactic acidosis. WBC was 20. Lactic acid was elevated to 4.9. He was given ventilatory and respiratory support. In ICU, he developed rapid atrial fibrillation with rapid ventricular response. He has a prior history of paroxysmal atrial fibrillation. He was given IV digoxin. Responded with slowing of heart rate. He was started initially empirically on Zosyn for pneumonia and pyuria per Infectious Disease specialist recommendation. Antibiotic was switched to meropenem. Wound culture from the left foot grew Klebsiella. He was unable to be weaned off the vent support. Intravenous pressors has been tapered off completely on 03/17/2017. Urine culture showed growth of a Rehana. Sputum culture with Acinetobacter and Klebsiella in the ER. Bactrim and fluconazole was added. Vancomycin was discontinued. He was not tolerating weaning parameters. Neuro consultation was obtained. The patient remained poorly responsive, assessed to have coma due to anoxic and metabolic encephalopathy. His head CT revealed chronic age-related changes with no evidence of acute intracranial abnormalities. An EEG done showed presence of severe diffuse slowing, with a significant toxic metabolic encephalopathy. Prognosis and plan of care was discussed with family, but family wants to proceed with tracheostomy placement. On 03/24/2017, the patient underwent tracheostomy by Dr. Aris Rahman. He was given wound care as he came in with multiple decubitus pressure ulcers. He was eventually discharged to [facility]. FINAL DIAGNOSES: 1. Sepsis with shock, covered. 2. Acute respiratory failure, status post tracheostomy. 3. Acute on chronic diastolic congestive heart failure. 4. Paroxysmal atrial fibrillation with rapid ventricular response. 5. Permanent pacemaker. 6. Multidrug resistant Klebsiella and Acinetobacter pneumonia. 7. Fungal urinary tract infection. 8. Acute toxic metabolic encephalopathy. 9. Multiple pressure ulcers present on admission. 10. Diabetes mellitus. 11. Anemia. 12. Chronic renal failure. 13. Dysphagia and NG-tube. 14. Lactic acidosis. 15. Hyperkalemia. 16. Urinary tract infection, unspecified. 17. Unspecified protein-calorie malnutrition. 18. Persistent coma with severe anoxic metabolic encephalopathy. Jona Guerra M.D. I have been assigned to dictate discharge summary on this account and I was not involved in the patient's management. Jeanie Gonzalez N.P. DR: PATRICIA JOB#: [id number] CC: DANIELA
== END 2017-03-26 16:00 | DRG 4 ==
LOC: EDSEX 17:52 → EDBD 17:52 → EMR 18:50 → ICU 18:56 → EDBEDREQ 19:23 → ICU 19:59 → 2W 03-25 22:40
PROC: 0BH17EZ Insertion of Endotracheal Airway into Trachea, Via Natural or Artificial Opening (ICD-10-PCS; principal; 2017-03-13)
PROC: 5A1955Z Respiratory Ventilation, Greater than 96 Consecutive Hours (ICD-10-PCS; principal; 2017-03-13)
PROC: 06HM33Z Insertion of Infusion Device into Right Femoral Vein, Percutaneous Approach (ICD-10-PCS; principal; 2017-03-13)
PROC: 02HV33Z Insertion of Infusion Device into Superior Vena Cava, Percutaneous Approach (ICD-10-PCS; 2017-03-16)
PROC: B548ZZA Ultrasonography of Superior Vena Cava, Guidance (ICD-10-PCS; 2017-03-16)
PROC: 0B113F4 Bypass Trachea to Cutaneous with Tracheostomy Device, Percutaneous Approach (ICD-10-PCS; 2017-03-24)
DX: A41.9 Sepsis, unspecified organism (principal); R65.21 Severe sepsis with septic shock; J15.0 Pneumonia due to Klebsiella pneumoniae; I50.33 Acute on chronic diastolic (congestive) heart failure; G92 Toxic encephalopathy; G93.1 Anoxic brain damage, not elsewhere classified; N17.9 Acute kidney failure, unspecified; B49 Unspecified mycosis; I13.0 Hypertensive heart and chronic kidney disease with heart failure and stage 1 through stage 4 chronic kidney disease, or unspecified chronic kidney disease; J44.0 Chronic obstructive pulmonary disease with (acute) lower respiratory infection; J96.01 Acute respiratory failure with hypoxia; L89.153 Pressure ulcer of sacral region, stage 3; N39.0 Urinary tract infection, site not specified; E46 Unspecified protein-calorie malnutrition; Z68.24 Body mass index [BMI] 24.0-24.9, adult; R62.7 Adult failure to thrive; N40.0 Benign prostatic hyperplasia without lower urinary tract symptoms; E11.22 Type 2 diabetes mellitus with diabetic chronic kidney disease; N18.9 Chronic kidney disease, unspecified; Z93.1 Gastrostomy status; I48.0 Paroxysmal atrial fibrillation; Z95.0 Presence of cardiac pacemaker; I69.919 Unspecified symptoms and signs involving cognitive functions following unspecified cerebrovascular disease; F01.50 Vascular dementia, unspecified severity, without behavioral disturbance, psychotic disturbance, mood disturbance, and anxiety; L89.620 Pressure ulcer of left heel, unstageable; E87.5 Hyperkalemia; E83.42 Hypomagnesemia; E83.39 Other disorders of phosphorus metabolism
CPT/HCPCS: 36415; 36569; 36600; 70450; 71010; 76937; 80048; 80053; 80202; 81001; 81003; 82164; 82550; 82803; 82962; 83605; 83615; 83735; 83880; 84100; 84484; 85007; 85025; 85610; 85730; 86850; 86900; 86901; 86920; 87040; 87070; 87086; 87181; 87205; 93005; 94002; 94003; 94150; 94640; 94664; 95819; C9399; J1815; J2250; J3490

== ENCOUNTER 2017-05-22 09:51 | Inpatient (IN) | payer MEDICARE, OTHER ==
[~2017-05-22] VITALS: Ht 170.2 cm; Wt 70.8 kg
[~2017-05-22 09:51] MED LIST changes: +ATORVASTATIN CA10 MG GT; -ATORVASTATIN CA10 MG ORAL; +ATORVASTATIN CA20 MG GT; -DOCUSATE SODIU250 MG ORAL; +FERROUS SULFAT325 MG GT; +KAYEXALATE SUSP15 GM GT; +LISINOPRIL5 MG GT; +TAMSULOSIN HCL0.4 MG GT; +ZOLPIDEM TARTRAT5 MG GT
[2017-05-22 10:22] VITALS: BP 115/59
[2017-05-22 10:24] LABS: BASOPHILS % (AUTO) 0.5 % (0.0-2.0); LYMPHOCYTES % (AUTO) 16.3 % (20.0-45.0); MEAN CORPUSCULAR HEMOGLOBIN 27.2 PG (27.0-31.0); MEAN CORPUSCULAR HGB CONC 30.8 G/DL (32.0-36.0); MEAN CORPUSCULAR VOLUME 88 FL (80-99); MEAN PLATELET VOLUME 5.4 FL (6.5-10.1); MONOCYTES % (AUTO) 9.2 % (1.0-10.0); PLATELET COUNT 473 K/UL (150-450); RED BLOOD COUNT 2.93 M/UL (4.70-6.10); WHITE BLOOD COUNT 8.7 K/UL (4.8-10.8)
[2017-05-22 10:31] LABS: INR 1.1 (0.9-1.1); PROTHROMBIN TIME 11.9 SEC (9.30-11.50)
--- NOTE | 2017-05-22 10:33 | Emergency Room Report ---
History of Present Illness General Chief Complaint: Abnormal Labs Source: Medical Record, EMS Present Illness HPI Patient present with complaints of increased lethargy Weakness patient's blood work Was found to be abnormal No reports of vomiting or diarrhea Patient has a feeding tube in place tracheostomy ventilation in place Patient himself is nonverbal this does limit the history of present illness significantly Unknown regarding fever or rash Allergies: Coded Allergies: No Known Allergies (Unverified , 01/07/17) Patient History Limited by: medical condition Past Medical History: see triage record Pertinent Family History: unable to obtain Reviewed Nursing Documentation: PMH: Agreed, PSxH: Agreed Nursing Documentation-PMH Past Medical History: No History, Except For Hx Cardiac Problems: Yes Hx Hypertension: Yes Hx Pacemaker: Yes Hx COPD: Yes - Chronic resp failure, vent dependent Hx Diabetes: Yes Hx Cancer: No Hx Gastrointestinal Problems: Yes - GT History Of Psychiatric Problem: Yes - Dementia Hx Neurological Problems: Yes Hx Dementia: Yes Hx Peripheral Neuropathy: Yes Hx Memory Loss: Yes Hx Concentration Difficulty: Yes Hx Speech Problem: Yes Hx Dysphasia: Yes Hx Weakness: Yes Review of Systems All Other Systems: limited - Other than the ones mentioned in the history of present illness all others are reviewed however they do stay limited due to the patient's mental status Physical Exam Vital Signs Date Time Temp Pulse Resp B/P (MAP) Pulse Ox O2 Delivery O2 Flow Rate FiO2 05/22/17 09:51 97.2 82 22 128/60 97 Mechanical Ventilator 35 Sp02 EP Interpretation: reviewed, normal General Appearance: no apparent distress Head: normocephalic, atraumatic Eyes: bilateral eye PERRL ENT: normal pharynx, dry mucus membranes Neck: supple, thyroid normal, other - tracheostomy in place Respiratory: no respiratory distress, no retraction, crackles - both lower lobes Cardiovascular #1: normal peripheral pulses, regular rate, rhythm, no edema Gastrointestinal: non tender, soft, no mass - feeding tube in place Rectal: other - sstool impaction, no obvious hemorrhage, small external hemorrhoid Musculoskeletal: other - Moves both upper extremities without focal deficit, patient appears somewhat contracted Neurologic: responsive - To verbal and physical stimuli Skin: other - decubitus ulcers Lymphatic: no adenopathy Medical Decision Making Diagnostic Impression: Primary Impression: Pancreatitis Additional Impression: Blood in stool ER Course With the history exam and presentation, multiple differentials considered, including but not limited to appendicitis, gastritis, cholecystitis, diverticulitis Patient appeared fairly uncomfortable and extensive blood work along with vision was initiated CAT scan imaging does not show any obvious acute pathology patient's blood work reveals elevated lipase Patient has done somewhat better however has intermittent discomfort given the blood in the stool and the overall evaluation patient was admitted for further care Labs Test 05/22/17 10:10 05/22/17 10:35 White Blood Count 8.7 K/UL (4.8-10.8) Red Blood Count 2.93 M/UL (4.70-6.10) Hemoglobin 8.0 G/DL (14.2-18.0) Hematocrit 25.9 % (42.0-52.0) Mean Corpuscular Volume 88 FL (80-99) Mean Corpuscular Hemoglobin 27.2 PG (27.0-31.0) Mean Corpuscular Hemoglobin Concent 30.8 G/DL (32.0-36.0) Red Cell Distribution Width 17.0 % (11.6-14.8) Platelet Count 473 K/UL (150-450) Mean Platelet Volume 5.4 FL (6.5-10.1) Neutrophils (%) (Auto) 73.0 % (45.0-75.0) Lymphocytes (%) (Auto) 16.3 % (20.0-45.0) Monocytes (%) (Auto) 9.2 % (1.0-10.0) Eosinophils (%) (Auto) 1.0 % (0.0-3.0) Basophils (%) (Auto) 0.5 % (0.0-2.0) Prothrombin Time 11.9 SEC (9.30-11.50) Prothromb Time International Ratio 1.1 (0.9-1.1) Activated Partial Thromboplast Time 27 SEC (23-33) Sodium Level 131 mEQ/L (135-145) Potassium Level 4.6 mEQ/L (3.4-4.9) Chloride Level 95 mEQ/L (98-107) Carbon Dioxide Level 27 mEQ/L (20-30) Anion Gap 9 (5-15) Blood Urea Nitrogen 32 mg/dL (7-23) Creatinine 0.9 mg/dL (0.7-1.2) Estimat Glomerular Filtration Rate mL/min (>60) Glucose Level 151 mg/dL (74-106) Lactic Acid Level 1.30 mmol/L (0.66-2.22) Calcium Level 8.4 mg/dL (8.6-10.2) Total Bilirubin 0.3 mg/dL (0.0-1.2) Aspartate Amino Transf (AST/SGOT) 11 U/L (5-40) Alanine Aminotransferase (ALT/SGPT) 10 U/L (3-41) Alkaline Phosphatase 69 U/L (40-129) Total Creatine Kinase 167 U/L (38-174) Creatine Kinase MB 3.5 ng/mL (< 6.7) Creatine Kinase MB Relative Index 2.0 Troponin I < 0.30 ng/mL (<=0.30) Total Protein 7.4 g/dL (6.6-8.7) Albumin 2.0 g/dL (3.5-5.2) Globulin 5.4 g/dL Albumin/Globulin Ratio 0.3 (1.0-2.7) Urine Color Pale yellow Urine Appearance Slightly cloudy Urine pH 7 (4.5-8.0) Urine Specific [place] 1.005 (1.005-1.035) Urine Protein 2+ (NEGATIVE) Urine Glucose (UA) Negative (NEGATIVE) Urine Ketones Negative (NEGATIVE) Urine Occult Blood 2+ (NEGATIVE) Urine Nitrite Negative (NEGATIVE) Urine Bilirubin Negative (NEGATIVE) Urine Urobilinogen Normal MG/DL (0.0-1.0) Urine Leukocyte Esterase 3+ (NEGATIVE) Urine RBC 2-4 /HPF (0 - 0) Urine WBC 5-10 /HPF (0 - 0) Urine Squamous Epithelial Cells Occasional /LPF Urine Bacteria Moderate /HPF (NONE) Urine Yeast Few /HPF (NONE) Chest X-Ray Diagnostic Results Chest X-Ray Diagnostic Results : Chest X-Ray Ordered: Yes # of Views/Limited/Complete: 1 View Indication: Chest Pain EP Interpretation: Yes Interpretation: no consolidation, no pneumothorax, other - Interstitial disease bilateral effusion, Impression: Other - interstitial dasease Electronically Signed by: Manish Sarmiento DO CT/MRI/US Diagnostic Results CT/MRI/US Diagnostic Results : Impression CT abdomen pelvis: Refer to report for full specifics no obvious acute disease Last Vital Signs Date Time Temp Pulse Resp B/P (MAP) Pulse Ox O2 Delivery O2 Flow Rate FiO2 05/22/17 10:22 97.1 79 21 115/59 97 Room Air 35 Status: improved Disposition: ADMITTED INPATIENT Condition: Serious MANISH SARMIENTO D.O. May 22, 2017 10:33
[2017-05-22 10:35] LABS: ALANINE AMINOTRANSFERASE 10 U/L (3-41); ALBUMIN/GLOBULIN RATIO 0.3 (1.0-2.7); ANION GAP 9 (5-15); ASPARTATE AMINO TRANSFERASE 11 U/L (5-40); CALCIUM 8.4 mg/dL (8.6-10.2); CARBON DIOXIDE 27 mEQ/L (20-30); CHLORIDE 95 mEQ/L (98-107); CREATININE 0.9 mg/dL (0.7-1.2); HEMOLYSIS 0; POTASSIUM 4.6 mEQ/L (3.4-4.9); SODIUM 131 mEQ/L (135-145); TOTAL PROTEIN 7.4 g/dL (6.6-8.7); TROPONIN I < 0.30 ng/mL (<=0.30)
[2017-05-22 10:45] LABS: CKMB 3.5 ng/mL (< 6.7)
--- NOTE | 2017-05-22 10:57 | Diagnostic Imaging Report ---
Indication: Shortness of breath Technique: One view of the chest Comparison: 03/24/2017 Findings: There is bilateral diffuse interstitial disease. Nodular interstitial disease on the left appears similar to the prior study. On the right, there is an increased airspace component as compared to the prior study. There are probably bilateral pleural effusions, right greater than left. Normal heart size. There is left chest bifocal pacemaker. Tracheostomy remains Impression: Bilateral interstitial and airspace disease, right greater than left. Nonspecific, could represent infiltrates or edema. Correlate with clinical findings Bilateral pleural effusions Other findings as noted
[2017-05-22 11:02] LABS: APPEARANCE,URINE SLIGHTLY CLOUDY; KETONES,URINE NEGATIVE (NEGATIVE); LEUKOCYTE ESTERASE ,URINE 3+ (NEGATIVE); NITRITE,URINE NEGATIVE (NEGATIVE); PH,URINE 7 (4.5-8.0); PROTEIN,URINE 2+ (NEGATIVE); UROBILINOGEN,URINE NORMAL MG/DL (0.0-1.0)
[2017-05-22] MEDS ORDERED: METOPROLOL SUCC50 MG GT (11:04)
[2017-05-22] MEDS ORDERED: HEPARIN SO5000 UNIT2 SUBQ (11:04)
[2017-05-22] MEDS ORDERED: LANSOPRAZOLE30 MG GT (11:04)
[2017-05-22] MEDS ORDERED: mylanta GT (11:04)
[2017-05-22] MEDS ORDERED: MILK OF MA400 MG/51 GT (11:04)
[2017-05-22] MEDS ORDERED: FLEET ENEMA133 M1 RC (11:04)
[2017-05-22] MEDS ORDERED: PROMOD GT (11:04)
[2017-05-22] MEDS ORDERED: SODIUM CHLORIDE GT (11:04)
[2017-05-22] MEDS ORDERED: DULCOLAX10 MG RC (11:04)
[2017-05-22] MEDS ORDERED: EPOGEN10000 UNIT SUBQ (11:04)
[2017-05-22] MEDS ORDERED: MULTIVITAMINS1 EAC8 GT (11:04)
[2017-05-22 11:24] LABS: BACTERIA,URINE MODERATE /HPF; SQUAMOUS EPITHELIAL CELL,UR OCCASIONAL /LPF (NONE/OCC)
[2017-05-22 11:25] LABS: YEAST,URINE FEW /HPF
[2017-05-22 11:39] VITALS: BP 113/54
[2017-05-22 12:00] VITALS: BP 109/58
[2017-05-22] MEDS ORDERED: Ferrous Sulfate 300 MG/5 ML UDC NG SCH (13:00)
[2017-05-22] MEDS ORDERED: Fleet's Enema 133ml RECTAL PRN (13:15)
[2017-05-22] MEDS ORDERED: Milk of Magnesia 30ml Ud GT PRN (13:15)
[2017-05-22] MEDS ORDERED: Zolpidem 5mg tab GT PRN (13:15)
--- NOTE | 2017-05-22 14:29 | Consultation ---
Consult Note Consult Note Consult Note History of Present Illness 82-year-old male coming from detention with increasing anemia. He has multiple medical problem including aspiration pneumonia, diabetes, hypertension and renal failure and was recently discharged after requiring tracheostomy for chronic respiratory failure. He is a full code and has had persistent anemia not responding to epogen. Patient is chronically on the ventilator at [facility]. History is from the detention discussion and records. Patient is bed bound. Patient SNF records reviewed PAST MEDICAL HISTORY: GT pacemaker, BPH, CAD, hypertension, hypertensive heart disease, peptic ulcer disease, insulin-dependent diabetes, chronic kidney disease, anemia, and possible underlying history of COPD. foot ulcer- unstageable, PAF, permanent pacemaker, VRE, diabetes, Trach , GT MEDICATIONS: Reviewed. ALLERGIES: Reviewed. SOCIAL HISTORY: Nonsmoker and nondrinker. detention patient. Bed bound FAMILY HISTORY: Noncontributory. Not available. REVIEW OF SYSTEMS: 1. Sepsis with shock, covered. 2. Acute respiratory failure, status post tracheostomy. 3. Acute on chronic diastolic congestive heart failure. 4. Paroxysmal atrial fibrillation with rapid ventricular response. 5. Permanent pacemaker. 6. Multidrug resistant Klebsiella and Acinetobacter pneumonia. 7. Fungal urinary tract infection. 8. Acute toxic metabolic encephalopathy. 9. Multiple pressure ulcers present on admission. 10. Diabetes mellitus. 11. Anemia. 12. Chronic renal failure. 13. Dysphagia 14. Lactic acidosis. 15. Hyperkalemia. 16. Urinary tract infection, unspecified. 17. Unspecified protein-calorie malnutrition. 18. Persistent coma with severe anoxic metabolic encephalopathy. PHYSICAL EXAMINATION: GENERAL: The patient is with reduced LOC unable to give history VITAL SIGNS: Saturation 98% on the vent, respirations 14, temperature 98.4 degrees, and blood pressure 104/74. HEENT: Oropharynx is moist. Gag present. NECK: Supple. Carotids 2+. trach LUNGS: Coarse breath sounds and scattered rhonchi. No wheezes. CARDIAC: S1 and S2. Regular rate and rhythm. Soft systolic murmur at the parasternal border. No rubs or gallops. ABDOMEN: Soft and nontender. No distention. no HSM; GT EXTREMITIES: No cyanosis. No clubbing. No edema. left heel wound NEUROLOGIC: Grossly nonfocal.reduced LOC Labs Test 05/22/17 10:10 05/22/17 10:35 White Blood Count 8.7 K/UL (4.8-10.8) Red Blood Count 2.93 M/UL (4.70-6.10) Hemoglobin 8.0 G/DL (14.2-18.0) Hematocrit 25.9 % (42.0-52.0) Mean Corpuscular Volume 88 FL (80-99) Mean Corpuscular Hemoglobin 27.2 PG (27.0-31.0) Mean Corpuscular Hemoglobin Concent 30.8 G/DL (32.0-36.0) Red Cell Distribution Width 17.0 % (11.6-14.8) Platelet Count 473 K/UL (150-450) Mean Platelet Volume 5.4 FL (6.5-10.1) Neutrophils (%) (Auto) 73.0 % (45.0-75.0) Lymphocytes (%) (Auto) 16.3 % (20.0-45.0) Monocytes (%) (Auto) 9.2 % (1.0-10.0) Eosinophils (%) (Auto) 1.0 % (0.0-3.0) Basophils (%) (Auto) 0.5 % (0.0-2.0) Prothrombin Time 11.9 SEC (9.30-11.50) Prothromb Time International Ratio 1.1 (0.9-1.1) Activated Partial Thromboplast Time 27 SEC (23-33) Sodium Level 131 mEQ/L (135-145) Potassium Level 4.6 mEQ/L (3.4-4.9) Chloride Level 95 mEQ/L (98-107) Carbon Dioxide Level 27 mEQ/L (20-30) Anion Gap 9 (5-15) Blood Urea Nitrogen 32 mg/dL (7-23) Creatinine 0.9 mg/dL (0.7-1.2) Estimat Glomerular Filtration Rate mL/min (>60) Glucose Level 151 mg/dL (74-106) Lactic Acid Level 1.30 mmol/L (0.66-2.22) Calcium Level 8.4 mg/dL (8.6-10.2) Total Bilirubin 0.3 mg/dL (0.0-1.2) Aspartate Amino Transf (AST/SGOT) 11 U/L (5-40) Alanine Aminotransferase (ALT/SGPT) 10 U/L (3-41) Alkaline Phosphatase 69 U/L (40-129) Total Creatine Kinase 167 U/L (38-174) Creatine Kinase MB 3.5 ng/mL (< 6.7) Creatine Kinase MB Relative Index 2.0 Troponin I < 0.30 ng/mL (<=0.30) Total Protein 7.4 g/dL (6.6-8.7) Albumin 2.0 g/dL (3.5-5.2) Globulin 5.4 g/dL Albumin/Globulin Ratio 0.3 (1.0-2.7) Urine Color Pale yellow Urine Appearance Slightly cloudy Urine pH 7 (4.5-8.0) Urine Specific [place] 1.005 (1.005-1.035) Urine Protein 2+ (NEGATIVE) Urine Glucose (UA) Negative (NEGATIVE) Urine Ketones Negative (NEGATIVE) Urine Occult Blood 2+ (NEGATIVE) Urine Nitrite Negative (NEGATIVE) Urine Bilirubin Negative (NEGATIVE) Urine Urobilinogen Normal MG/DL (0.0-1.0) Urine Leukocyte Esterase 3+ (NEGATIVE) Urine RBC 2-4 /HPF (0 - 0) Urine WBC 5-10 /HPF (0 - 0) Urine Squamous Epithelial Cells Occasional /LPF Urine Bacteria Moderate /HPF (NONE) Urine Yeast Few /HPF (NONE) IMPRESSION 1. anemia, possibly chronic disease 2. Chronic respiratory failure, status post tracheostomy. 3. Chronic diastolic congestive heart failure. 4. Paroxysmal atrial fibrillation 5. Permanent pacemaker. 6. Multidrug resistant Klebsiella and Acinetobacter pneumonia. per history 7. Fungal urinary tract infection. per history 8. Chronic encephalopathy. 9. Multiple pressure ulcers 10. Diabetes mellitus. 11. Bed bound 12. Chronic renal failure. 13. G-tube. PLAN care noted respiratory care Ventilator as is SNF meds supportive care suction no wean oxygen therapy transfuse wound care prognosis guarded REJI OJEDA May 22, 2017 14:29
[2017-05-22 16:00] VITALS: BP 105/55
--- NOTE | 2017-05-22 16:56 | General Progress Note ---
Assessment/Plan Assessment/Plan GI CONSULT Dictated Assessment - Anemia - per DTR, has had a recent negative colonoscopy at nearby hospital ([facility]) - GT migration - Tip not in gastric lumen by bedside eval, GT removed. Could not be replaced. Will check CT today and plan on new GT next week. Thank you Alessia Chaves MD Subjective Allergies: Coded Allergies: No Known Allergies (Unverified , 01/07/17) Objective Last 24 Hour Vital Signs Date Time Temp Pulse Resp B/P (MAP) Pulse Ox O2 Delivery O2 Flow Rate FiO2 05/22/17 16:00 98.2 82 17 105/55 100 Mechanical Ventilator 35 05/22/17 15:04 81 17 35 05/22/17 13:39 84 20 35 05/22/17 12:00 35 05/22/17 12:00 98.2 104 22 109/58 100 Mechanical Ventilator 35 05/22/17 11:50 97.1 85 22 113/54 100 Room Air 35 05/22/17 11:39 97.1 85 22 113/54 100 Room Air 35 05/22/17 10:35 80 20 35 05/22/17 10:22 97.1 79 21 115/59 97 Room Air 35 05/22/17 10:00 80 22 35 05/22/17 09:51 97.2 82 22 128/60 97 Mechanical Ventilator 35 Intake and Output 05/22/17 05/23/17 19:00 07:00 Intake Total 80 ml Balance 80 ml Intake Free Water 50 ml Tube Feeding 30 ml # Voids 1 Laboratory Tests 05/22/17 10:10: White Blood Count 8.7, Red Blood Count 2.93L, Hemoglobin 8.0L, Hematocrit 25.9L , Mean Corpuscular Volume 88, Mean Corpuscular Hemoglobin 27.2, Mean Corpuscular Hemoglobin Concent 30.8L, Red Cell Distribution Width 17.0H, Platelet Count 473H, Mean Platelet Volume 5.4L, Neutrophils (%) (Auto) 73.0, Lymphocytes (%) (Auto) 16.3L, Monocytes (%) (Auto) 9.2, Eosinophils (%) (Auto) 1.0, Basophils (%) (Auto) 0.5, Prothrombin Time 11.9H, Prothromb Time International Ratio 1.1, Activated Partial Thromboplast Time 27, Sodium Level 131L, Potassium Level 4.6, Chloride Level 95L, Carbon Dioxide Level 27, Anion Gap 9, Blood Urea Nitrogen 32H, Creatinine 0.9, Estimat Glomerular Filtration Rate , Glucose Level 151H, Lactic Acid Level 1.30, Calcium Level 8.4L, Total Bilirubin 0.3, Aspartate Amino Transf (AST/SGOT) 11, Alanine Aminotransferase ( ALT/SGPT) 10, Alkaline Phosphatase 69, Total Creatine Kinase 167, Creatine Kinase MB 3.5, Creatine Kinase MB Relative Index 2.0, Troponin I < 0.30, Total Protein 7.4, Albumin 2.0L, Globulin 5.4, Albumin/Globulin Ratio 0.3L 05/22/17 10:35: Urine Color Pale yellow, Urine Appearance Slightly cloudy, Urine pH 7, Urine Specific [place] 1.005, Urine Protein 2+H, Urine Glucose (UA) Negative, Urine Ketones Negative, Urine Occult Blood 2+H, Urine Nitrite Negative, Urine Bilirubin Negative, Urine Urobilinogen Normal, Urine Leukocyte Esterase 3+H, Urine RBC 2-4H, Urine WBC 5-10H, Urine Squamous Epithelial Cells Occasional, Urine Bacteria ModerateH, Urine Yeast FewH Height (Feet): 5 Height (Inches): 8.00 Weight (Pounds): 158 ALESSIA CHAVES May 22, 2017 16:56
[2017-05-22 20:00] VITALS: BP 139/72
[2017-05-22] MEDS: Heparin 5000 units/ml inj SUBQ SCH (21:00)
[2017-05-22] MEDS ORDERED: Metoprolol Succinate XL 50mg tab ORAL SCH (21:00)
[2017-05-23] VITALS: BP 151/115
[2017-05-23 03:44] LABS: BASOPHILS % (AUTO) 0.9 % (0.0-2.0); EOSINOPHILS % (AUTO) 0.4 % (0.0-3.0); LYMPHOCYTES % (AUTO) 14.6 % (20.0-45.0); MEAN CORPUSCULAR HEMOGLOBIN 27.6 PG (27.0-31.0); MEAN CORPUSCULAR HGB CONC 30.9 G/DL (32.0-36.0); MEAN CORPUSCULAR VOLUME 89 FL (80-99); MONOCYTES % (AUTO) 9.7 % (1.0-10.0); NEUTROPHILS % (AUTO) 74.4 % (45.0-75.0); PLATELET COUNT 487 K/UL (150-450); RED BLOOD COUNT 3.57 M/UL (4.70-6.10); RED CELL DISTRIBUTION WIDTH 15.8 % (11.6-14.8); WHITE BLOOD COUNT 8.1 K/UL (4.8-10.8)
[2017-05-23 04:00] VITALS: BP 135/67
--- NOTE | 2017-05-23 04:45 | Consultation ---
DATE OF CONSULTATION: 05/22/2017 GASTROLOGY CONSULTATION Chief Complaint: I was asked to see this patient by Dr. Jona Guerra for evaluation of anemia and gastrostomy tube problems. History Of Present Illness: The patient is an unfortunate 82-year-old man with respiratory failure and dementia, who has been found to have severe anemia. He is getting transfusion of blood. His gastrostomy tube appears to be leaking on exam at the bedside. The funnel tip appeared to be within 1 cm of the anterior abdominal wall. It appeared to be stuck and not be mobile, therefore appeared to be outside the gastric lumen. Gastrostomy fluid was removed easily with traction and the tip was just in the anterior abdominal wall. The hole was cleansed, but despite multiple efforts at this [address], access to the lumen could not be achieved. Dressing was therefore applied and discussion was held with the patient's daughter to replace the gastrostomy tube next week. For the time being, nasogastric tube was ordered and a CT scan of the abdomen was also ordered to evaluate the intra-abdominal wall since the intraabdominal wall appeared to be somewhat firm. According to the daughter, the patient had a colonoscopy recently perhaps at [facility]. The results are not available, but the daughter was not told that there was anything significant found. The patient has had a history of anemia in the past but at this time, hematocrit appears to be somewhat lower. Past Medical History: History of dysphagia, status post gastrostomy tube placement, respiratory failure, status post tracheostomy tube placement, benign prostatic hypertrophy, coronary artery disease, hypertension, peptic ulcer disease, insulin-dependant diabetes mellitus, chronic kidney disease, anemia, chronic obstructive pulmonary disease, bilateral heel ulcers, paroxysmal atrial fibrillation, status post permanent pacemaker placement, and history of VRE. MEDICATIONS: See chart list for details. ALLERGIES: None. FAMILY HISTORY: Noncontributory. Social History: The patient is by descent. His family look after his affairs. He is in around the clock halfway. REVIEW OF SYSTEMS: Otherwise negative. PHYSICAL EXAMINATION: GENERAL: A debilitated thin man, seen in his room. HEENT: Normocephalic and atraumatic. Tracheostomy was in place. CHEST: Coarse breath sounds. No rhonchi. CARDIOVASCULAR: Revealed a regular rate and rhythm. Abdomen: Soft with gastrostomy tube, which as described above was pulled. There is some firmness around gastrostomy tube area and a rash, which appeared to be fungal near the tube. EXTREMITIES: Revealed bilateral heel decubitus ulcers. Neurologic: Grossly notable for advanced cognitive dysfunction and contractures of all 4 extremities. LABORATORY DATA: Noted. Assessment: This patient is debilitated and has respiratory failure, is bedbound, and has a poor overall prognosis. His gastrostomy tube could not be salvaged and appeared to be outside the gastric lumen. The site will therefore be left alone until it heals and then replacement with gastrostomy tube to be placed next week. In the meantime, CT scan of the abdomen and pelvis to be done to rule out any major infections or otherwise gastrostomy tube complications due to migration. This can be done over the weekend. As far as the anemia is concerned, the patient has had a colonoscopy recently per daughter and I suspect that his anemia may be due to chronic disease and renal failure. He has very poor prognosis with advanced age and very debilitated to pursue any further aggressive intervention for workup of anemia. I would transfuse him as needed and give iron supplementations as well. His CBC to be monitored periodically. Recommendations: Per above discussion and per orders written in the chart. Thank you for asking me to participate in the care of this patient. Alessia Chaves M.D. DR: ANTONELLA JOB#: [id number] CC:
[2017-05-23 07:49] VITALS: BP 145/76
[2017-05-23] MEDS: Docusate 100mg/10ml Liq GT SCH (09:00)
[2017-05-23] MEDS: sitaGLIPtin 25mg tab GT SCH (09:00)
[2017-05-23] MEDS ORDERED: Multivitamin w/Minerals tab ORAL SCH (09:00)
[2017-05-23] MEDS: Ferrous Sulfate 300 MG/5 ML UDC GT SCH (09:00)
[2017-05-23] MEDS: Heparin 5000 units/ml inj SUBQ SCH ×2 (09:00→20:24)
[2017-05-23] MEDS: Tamsulosin 0.4mg cap ORAL SCH (09:00)
--- NOTE | 2017-05-23 09:28 | Pulmonology Progress Note ---
Assessment/Plan Assessment/Plan IMPRESSION 1. anemia, possibly chronic disease 2. Chronic respiratory failure, status post tracheostomy. 3. Chronic diastolic congestive heart failure. 4. Paroxysmal atrial fibrillation 5. Permanent pacemaker. 6. Multidrug resistant Klebsiella and Acinetobacter pneumonia. per history 7. Fungal urinary tract infection. per history 8. Chronic encephalopathy. 9. Multiple pressure ulcers 10. Diabetes mellitus. 11. Bed bound 12. Chronic renal failure. 13. G-tube. PLAN care noted respiratory care Ventilator as is SNF meds supportive care suction no wean oxygen therapy transfused wound care prognosis guarded GT replacement needed family to decide re aggressiveness of care impression, plan, and exam edited and reviewed in detail care discussed with RN Subjective Allergies: Coded Allergies: No Known Allergies (Unverified , 01/07/17) Subjective GT out family to decide NGT d/w nursing Objective Last 24 Hour Vital Signs Date Time Temp Pulse Resp B/P (MAP) Pulse Ox O2 Delivery O2 Flow Rate FiO2 05/23/17 09:06 89 20 35 05/23/17 08:00 35 05/23/17 08:00 88 05/23/17 07:49 97.7 92 22 145/76 100 Mechanical Ventilator 35 05/23/17 06:59 88 18 35 05/23/17 05:13 89 21 35 05/23/17 04:00 98.1 104 24 135/67 100 Mechanical Ventilator 35 05/23/17 04:00 104 05/23/17 04:00 35 05/23/17 03:22 88 23 35 05/23/17 01:26 92 19 35 05/23/17 00:00 97.5 97 26 151/115 100 Mechanical Ventilator 35 05/23/17 00:00 35 05/23/17 00:00 90 05/22/17 23:19 88 19 35 05/22/17 21:20 91 15 35 05/22/17 21:00 91 139/72 05/22/17 20:00 97.7 88 24 139/72 100 Mechanical Ventilator 35 05/22/17 20:00 84 05/22/17 19:16 84 20 35 05/22/17 17:04 79 17 35 05/22/17 16:00 98.2 82 17 105/55 100 Mechanical Ventilator 35 05/22/17 16:00 35 05/22/17 15:34 79 05/22/17 15:04 81 17 35 05/22/17 13:39 84 20 35 05/22/17 12:20 98 05/22/17 12:00 35 05/22/17 12:00 98.2 104 22 109/58 100 Mechanical Ventilator 35 05/22/17 11:50 97.1 85 22 113/54 100 Room Air 35 05/22/17 11:39 97.1 85 22 113/54 100 Room Air 35 05/22/17 10:35 80 20 35 05/22/17 10:22 97.1 79 21 115/59 97 Room Air 35 05/22/17 10:00 80 22 35 05/22/17 09:51 97.2 82 22 128/60 97 Mechanical Ventilator 35 Objective WDWN NAD chronically ill trach coarse breath sounds bilaterally without rhonchi or wheeze [id number] without MRG NABS nontender no HSM; GT out no CC mild edema contractures nonfocal Laboratory Tests 05/22/17 10:10: White Blood Count 8.7, Red Blood Count 2.93L, Hemoglobin 8.0L, Hematocrit 25.9L , Mean Corpuscular Volume 88, Mean Corpuscular Hemoglobin 27.2, Mean Corpuscular Hemoglobin Concent 30.8L, Red Cell Distribution Width 17.0H, Platelet Count 473H, Mean Platelet Volume 5.4L, Neutrophils (%) (Auto) 73.0, Lymphocytes (%) (Auto) 16.3L, Monocytes (%) (Auto) 9.2, Eosinophils (%) (Auto) 1.0, Basophils (%) (Auto) 0.5, Prothrombin Time 11.9H, Prothromb Time International Ratio 1.1, Activated Partial Thromboplast Time 27, Sodium Level 131L, Potassium Level 4.6, Chloride Level 95L, Carbon Dioxide Level 27, Anion Gap 9, Blood Urea Nitrogen 32H, Creatinine 0.9, Estimat Glomerular Filtration Rate , Glucose Level 151H, Lactic Acid Level 1.30, Calcium Level 8.4L, Total Bilirubin 0.3, Aspartate Amino Transf (AST/SGOT) 11, Alanine Aminotransferase ( ALT/SGPT) 10, Alkaline Phosphatase 69, Total Creatine Kinase 167, Creatine Kinase MB 3.5, Creatine Kinase MB Relative Index 2.0, Troponin I < 0.30, Total Protein 7.4, Albumin 2.0L, Globulin 5.4, Albumin/Globulin Ratio 0.3L 05/22/17 10:35: Urine Color Pale yellow, Urine Appearance Slightly cloudy, Urine pH 7, Urine Specific [place] 1.005, Urine Protein 2+H, Urine Glucose (UA) Negative, Urine Ketones Negative, Urine Occult Blood 2+H, Urine Nitrite Negative, Urine Bilirubin Negative, Urine Urobilinogen Normal, Urine Leukocyte Esterase 3+H, Urine RBC 2-4H, Urine WBC 5-10H, Urine Squamous Epithelial Cells Occasional, Urine Bacteria ModerateH, Urine Yeast FewH 05/23/17 03:15: White Blood Count 8.1, Red Blood Count 3.57L, Hemoglobin 9.8L, Hematocrit 31.9L , Mean Corpuscular Volume 89, Mean Corpuscular Hemoglobin 27.6, Mean Corpuscular Hemoglobin Concent 30.9L, Red Cell Distribution Width 15.8H, Platelet Count 487H, Mean Platelet Volume 5.0L, Neutrophils (%) (Auto) 74.4, Lymphocytes (%) (Auto) 14.6L, Monocytes (%) (Auto) 9.7, Eosinophils (%) (Auto) 0.4, Basophils (%) (Auto) 0.9 Current Medications Medications (Trade) Dose Ordered Sig/Subhash Route PRN Reason Start Time Stop Time Status Last Admin Dose Admin Acetaminophen (Tylenol) 650 mg Q4H PRN ORAL Mild Pain/Temp > 100.5 05/22/17 13:15 06/21/17 13:14 Atorvastatin Calcium (Lipitor) 10 mg BEDTIME GT 05/22/17 21:00 06/21/17 20:59 Bisacodyl (Dulcolax) 10 mg DAILYPRN PRN RECTAL Constipation 05/22/17 13:00 06/21/17 12:59 Carvedilol (Coreg) 3.125 mg EVERY 12 HOURS GT 05/22/17 21:00 06/21/17 20:59 Docusate Sodium (Colace) 100 mg DAILY GT 05/23/17 09:00 06/22/17 08:59 Ferrous Sulfate (Feosol) 300 mg DAILY GT 05/23/17 09:00 06/22/17 08:59 Finasteride (Proscar) 5 mg DAILY ORAL 05/23/17 09:00 06/22/17 08:59 Heparin Sodium (Porcine) (Heparin 5000 units/ml) 5,000 units EVERY 12 HOURS SUBQ 05/22/17 21:00 06/21/17 20:59 05/23/17 09:00 Lansoprazole (Prevacid) 30 mg DAILY GT 05/23/17 09:00 06/22/17 08:59 Magnesium Hydroxide (Mom) 30 ml DAILYPRN PRN GT CONSTIPATION 2ND LINE AGENT 05/22/17 13:15 06/21/17 13:14 Sitagliptin Phosphate (Januvia) 50 mg DAILY GT 05/23/17 09:00 06/22/17 08:59 Sodium Phosphate (Fleet's Sodium Phosl Enema) 133 ml DAILYPRN PRN RECTAL Constipation Last Line Agent 05/22/17 13:15 06/21/17 13:14 Tamsulosin HCl (Flomax) 0.4 mg DAILY ORAL 05/23/17 09:00 06/22/17 08:59 Zolpidem Tartrate (Ambien) 5 mg HSPRN PRN GT Insomnia 05/22/17 13:15 05/29/17 13:14 REJI OJEDA May 23, 2017 09:28
--- NOTE | 2017-05-23 09:47 | General Progress Note ---
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 Assessment/Plan family decided for hospice care no replacement of GT per family Subjective ROS Limited/Unobtainable: No Allergies: Coded Allergies: No Known Allergies (Unverified , 01/07/17) Objective Last 24 Hour Vital Signs Date Time Temp Pulse Resp B/P (MAP) Pulse Ox O2 Delivery O2 Flow Rate FiO2 05/23/17 09:06 89 20 35 05/23/17 08:00 35 05/23/17 08:00 88 05/23/17 07:49 97.7 92 22 145/76 100 Mechanical Ventilator 35 05/23/17 06:59 88 18 35 05/23/17 05:13 89 21 35 05/23/17 04:00 98.1 104 24 135/67 100 Mechanical Ventilator 35 05/23/17 04:00 104 05/23/17 04:00 35 05/23/17 03:22 88 23 35 05/23/17 01:26 92 19 35 05/23/17 00:00 97.5 97 26 151/115 100 Mechanical Ventilator 35 05/23/17 00:00 35 05/23/17 00:00 90 05/22/17 23:19 88 19 35 05/22/17 21:20 91 15 35 05/22/17 21:00 91 139/72 05/22/17 20:00 97.7 88 24 139/72 100 Mechanical Ventilator 35 05/22/17 20:00 84 05/22/17 19:16 84 20 35 05/22/17 17:04 79 17 35 05/22/17 16:00 98.2 82 17 105/55 100 Mechanical Ventilator 35 05/22/17 16:00 35 05/22/17 15:34 79 05/22/17 15:04 81 17 35 05/22/17 13:39 84 20 35 05/22/17 12:20 98 05/22/17 12:00 35 05/22/17 12:00 98.2 104 22 109/58 100 Mechanical Ventilator 35 05/22/17 11:50 97.1 85 22 113/54 100 Room Air 35 05/22/17 11:39 97.1 85 22 113/54 100 Room Air 35 05/22/17 10:35 80 20 35 05/22/17 10:22 97.1 79 21 115/59 97 Room Air 35 05/22/17 10:00 80 22 35 05/22/17 09:51 97.2 82 22 128/60 97 Mechanical Ventilator 35 Laboratory Tests 05/22/17 10:10: White Blood Count 8.7, Red Blood Count 2.93L, Hemoglobin 8.0L, Hematocrit 25.9L , Mean Corpuscular Volume 88, Mean Corpuscular Hemoglobin 27.2, Mean Corpuscular Hemoglobin Concent 30.8L, Red Cell Distribution Width 17.0H, Platelet Count 473H, Mean Platelet Volume 5.4L, Neutrophils (%) (Auto) 73.0, Lymphocytes (%) (Auto) 16.3L, Monocytes (%) (Auto) 9.2, Eosinophils (%) (Auto) 1.0, Basophils (%) (Auto) 0.5, Prothrombin Time 11.9H, Prothromb Time International Ratio 1.1, Activated Partial Thromboplast Time 27, Sodium Level 131L, Potassium Level 4.6, Chloride Level 95L, Carbon Dioxide Level 27, Anion Gap 9, Blood Urea Nitrogen 32H, Creatinine 0.9, Estimat Glomerular Filtration Rate , Glucose Level 151H, Lactic Acid Level 1.30, Calcium Level 8.4L, Total Bilirubin 0.3, Aspartate Amino Transf (AST/SGOT) 11, Alanine Aminotransferase ( ALT/SGPT) 10, Alkaline Phosphatase 69, Total Creatine Kinase 167, Creatine Kinase MB 3.5, Creatine Kinase MB Relative Index 2.0, Troponin I < 0.30, Total Protein 7.4, Albumin 2.0L, Globulin 5.4, Albumin/Globulin Ratio 0.3L 05/22/17 10:35: Urine Color Pale yellow, Urine Appearance Slightly cloudy, Urine pH 7, Urine Specific [place] 1.005, Urine Protein 2+H, Urine Glucose (UA) Negative, Urine Ketones Negative, Urine Occult Blood 2+H, Urine Nitrite Negative, Urine Bilirubin Negative, Urine Urobilinogen Normal, Urine Leukocyte Esterase 3+H, Urine RBC 2-4H, Urine WBC 5-10H, Urine Squamous Epithelial Cells Occasional, Urine Bacteria ModerateH, Urine Yeast FewH 05/23/17 03:15: White Blood Count 8.1, Red Blood Count 3.57L, Hemoglobin 9.8L, Hematocrit 31.9L , Mean Corpuscular Volume 89, Mean Corpuscular Hemoglobin 27.6, Mean Corpuscular Hemoglobin Concent 30.9L, Red Cell Distribution Width 15.8H, Platelet Count 487H, Mean Platelet Volume 5.0L, Neutrophils (%) (Auto) 74.4, Lymphocytes (%) (Auto) 14.6L, Monocytes (%) (Auto) 9.7, Eosinophils (%) (Auto) 0.4, Basophils (%) (Auto) 0.9 Height (Feet): 5 Height (Inches): 8.00 Weight (Pounds): 158 General Appearance: lethargic EENT: normal ENT inspection Neck: supple Cardiovascular: normal rate Respiratory/Chest: decreased breath sounds Abdomen: normal bowel sounds, non tender, soft Extremities: non-tender MARCY MENSAH May 23, 2017 09:47
[2017-05-23 11:47] VITALS: BP 132/76
[2017-05-23] MEDS: D5NS 1,000 ML IV SCH (12:53)
[2017-05-23 16:00] VITALS: BP 147/74
[2017-05-23] MEDS ORDERED: Tubing IV Blood Pump IV ONE (16:12)
[2017-05-23] MEDS ORDERED: NS 275ml ONE (16:12)
[2017-05-23] MEDS ORDERED: D5NS 1000ml IV ONE (16:12)
[2017-05-23 20:00] VITALS: BP 135/61
--- NOTE | 2017-05-23 22:00 | History and Physical Report ---
DATE OF ADMISSION: 05/22/2017 CHIEF COMPLAINT: Anemia. History Of Present Illness: The patient is an unfortunate 82-year-old male. He has a history of stroke; encephalopathy; conduction system disease, status post pacemaker, paroxysmal atrial fibrillation; hypertension; and BPH. He has a history of diabetes. He was transferred from a halfway facility with complaints of anemia. At the halfway facility, the patient has been having diarrhea, but no bright red blood per rectum or melena. On evaluation in the emergency room, the patient was noted to have a hemoglobin of 8. In addition, it appeared that his G-tube was malpositioned or partially pulled out. It has since been removed by the offshore wind operations manager. The patient is now admitted for further evaluation and care. PAST MEDICAL HISTORY: As above. PAST SURGICAL HISTORY: Pacemaker and a G-tube. CURRENT MEDICATIONS: Reconciled and reviewed. ALLERGIES: None. FAMILY HISTORY: None. SOCIAL HISTORY: Negative for tobacco, ethanol, or drugs. REVIEW OF SYSTEMS: From the patient is unobtainable. PHYSICAL EXAMINATION: Vital Signs: Temperature 97.7, pulse 92, respirations 22, and blood pressure 149/76. General: The patient is a well-developed male, in no apparent distress. He is poorly responsive. NECK: Supple. HEART: Regular rate and rhythm. LUNGS: Clear. ABDOMEN: Soft, nontender, and nondistended. EXTREMITIES: Without clubbing, cyanosis, or edema. Laboratory Data: Labs show sodium of 131, potassium 4.6. Lactic acid level 1.3. White count was 8, hemoglobin 8, hematocrit 25, and platelets are 473,000. UA showed 5 to 10 WBCs. Assessment: This is an unfortunate male, admitted with complaints of anemia, suspect secondary to chronic disease. He has a malpositioned gastrostomy tube, which has since been removed. PROBLEM LIST: 1. Anemia. 2. Dysphagia. 3. Malpositioned gastrostomy tube, now removed. 4. Pacemaker. 5. Hypertension. 6. Diabetes. 7. Encephalopathy. 8. Chronic respiratory failure. Plan: IV hydration. PPI treatment. Continue vent support and respiratory treatments. Family are now considering whether or not to replace the G-tube or converting the patient to comfort measures, they will decide over the next few days. The patient is DNR as per their request. Rajeev Carlos M.D. DR: JUAN JOB#: [id number] CC:
[2017-05-24] VITALS: BP 105/58
[2017-05-24] MEDS: D5NS 1,000 ML IV SCH ×2 (02:45→17:04)
[2017-05-24 04:00] VITALS: BP 148/77
--- NOTE | 2017-05-24 07:48 | General Progress Note ---
Assessment/Plan Problem List: (1) Respiratory failure ICD Codes: J96.90 - Respiratory failure, unspecified, unspecified whether with hypoxia or hypercapnia SNOMED: 714288702 (2) Pacemaker ICD Codes: Z95.0 - Presence of cardiac pacemaker SNOMED: 564111031, 212323073 Status: stable Assessment/Plan dc planning on hospice no gt replacement per family Subjective ROS Limited/Unobtainable: No Constitutional: Reports: malaise, weakness HEENT: Reports: no symptoms Cardiovascular: Reports: no symptoms Respiratory: Reports: no symptoms Gastrointestinal/Abdominal: Reports: difficulty swallowing Genitourinary: Reports: no symptoms Neurologic/Psychiatric: Reports: pre-existing deficit Endocrine: Reports: no symptoms Hematologic/Lymphatic: Reports: anemia Allergies: Coded Allergies: No Known Allergies (Unverified , 01/07/17) All Systems: reviewed and negative except above Subjective no events. family wants hospice. no feeding tube Objective Last 24 Hour Vital Signs Date Time Temp Pulse Resp B/P (MAP) Pulse Ox O2 Delivery O2 Flow Rate FiO2 05/24/17 07:04 91 24 35 05/24/17 05:05 93 26 35 05/24/17 04:00 97.5 97 29 148/77 100 Mechanical Ventilator 35 05/24/17 04:00 96 05/24/17 04:00 35 05/24/17 03:01 102 24 35 05/24/17 01:06 89 28 35 05/24/17 00:00 97.9 88 22 105/58 100 Mechanical Ventilator 35 05/24/17 00:00 80 05/24/17 00:00 35 05/23/17 22:58 81 17 35 05/23/17 21:05 87 19 35 05/23/17 20:20 83 135/61 05/23/17 20:00 35 05/23/17 20:00 85 05/23/17 20:00 97.3 83 21 135/61 100 Mechanical Ventilator 35 05/23/17 19:13 84 17 35 05/23/17 17:17 92 18 35 05/23/17 16:00 97.3 89 22 147/74 100 Mechanical Ventilator 35 05/23/17 16:00 35 05/23/17 16:00 89 05/23/17 15:11 89 18 35 05/23/17 13:00 83 18 35 05/23/17 12:00 80 9/16/17 12:00 35 05/23/17 11:47 98.2 79 22 132/76 100 Mechanical Ventilator 35 05/23/17 11:04 82 17 35 05/23/17 09:06 89 20 35 05/23/17 09:00 89 145/76 05/23/17 08:00 35 05/23/17 08:00 88 05/23/17 07:49 97.7 92 22 145/76 100 Mechanical Ventilator 35 Height (Feet): 5 Height (Inches): 8.00 Weight (Pounds): 158 General Appearance: WD/WN, alert, confused Neck: supple Cardiovascular: regular rhythm Respiratory/Chest: lungs clear Abdomen: normal bowel sounds, non tender, soft, no organomegaly Edema: no edema noted Arm (L), no edema noted Arm (R), no edema noted Leg (L), no edema noted Leg (R), no edema noted Pedal (L), no edema noted Pedal (R), no edema noted Generalized WENDIE CASTELLANOS May 24, 2017 07:48
[2017-05-24 08:00] VITALS: BP 136/87
[2017-05-24] MEDS: Docusate 100mg/10ml Liq GT SCH (08:23)
[2017-05-24] MEDS: Ferrous Sulfate 300 MG/5 ML UDC GT SCH (08:24)
[2017-05-24] MEDS: Tamsulosin 0.4mg cap ORAL SCH (08:24)
[2017-05-24] MEDS: sitaGLIPtin 25mg tab GT SCH (08:24)
[2017-05-24] MEDS: Heparin 5000 units/ml inj SUBQ SCH ×2 (08:55→20:57)
[2017-05-24] MEDS ORDERED: D5NS 1000ml IV ONE (10:05)
--- NOTE | 2017-05-24 10:11 | Pulmonology Progress Note ---
Assessment/Plan Assessment/Plan IMPRESSION 1. anemia, possibly chronic disease 2. Chronic respiratory failure, status post tracheostomy. 3. Chronic diastolic congestive heart failure. 4. Paroxysmal atrial fibrillation 5. Permanent pacemaker. 6. Multidrug resistant Klebsiella and Acinetobacter pneumonia. per history 7. Fungal urinary tract infection. per history 8. Chronic encephalopathy. 9. Multiple pressure ulcers 10. Diabetes mellitus. 11. Bed bound 12. Chronic renal failure. 13. G-tube. PLAN hospice care no GT planned ventilator support withdraw care per family decision impression, plan, and exam edited and reviewed in detail care discussed with RN Subjective Allergies: Coded Allergies: No Known Allergies (Unverified , 01/07/17) Subjective comfort care only d/w nursing Objective Last 24 Hour Vital Signs Date Time Temp Pulse Resp B/P (MAP) Pulse Ox O2 Delivery O2 Flow Rate FiO2 05/24/17 09:14 86 19 35 05/24/17 08:23 97 136/87 05/24/17 08:00 87 05/24/17 08:00 35 05/24/17 08:00 97.7 97 22 136/87 100 Mechanical Ventilator 35 05/24/17 07:04 91 24 35 05/24/17 05:05 93 26 35 05/24/17 04:00 97.5 97 29 148/77 100 Mechanical Ventilator 35 05/24/17 04:00 96 05/24/17 04:00 35 05/24/17 03:01 102 24 35 05/24/17 01:06 89 28 35 05/24/17 00:00 97.9 88 22 105/58 100 Mechanical Ventilator 35 05/24/17 00:00 80 05/24/17 00:00 35 05/23/17 22:58 81 17 35 05/23/17 21:05 87 19 35 05/23/17 20:20 83 135/61 05/23/17 20:00 35 05/23/17 20:00 85 05/23/17 20:00 97.3 83 21 135/61 100 Mechanical Ventilator 35 05/23/17 19:13 84 17 35 05/23/17 17:17 92 18 35 05/23/17 16:00 97.3 89 22 147/74 100 Mechanical Ventilator 35 05/23/17 16:00 35 05/23/17 16:00 89 05/23/17 15:11 89 18 35 05/23/17 13:00 83 18 35 05/23/17 12:00 80 05/23/17 12:00 35 05/23/17 11:47 98.2 79 22 132/76 100 Mechanical Ventilator 35 05/23/17 11:04 82 17 35 Intake and Output 05/24/17 05/25/17 19:00 07:00 Intake Total 140 ml Balance 140 ml IV Total 140 ml Objective WDWN NAD chronically ill trach coarse breath sounds bilaterally without rhonchi or wheeze [id number] without MRG NABS nontender no HSM; GT out no CC mild edema contractures nonfocal Microbiology Date/Time Source Procedure Growth Status 05/22/17 10:10 Blood Blood Culture - Preliminary NO GROWTH AFTER 24 HOURS Resulted 05/22/17 09:50 Blood Blood Culture - Preliminary NO GROWTH AFTER 24 HOURS Resulted 05/22/17 10:35 Urine,Clean Catch Urine Culture - Preliminary Gram Negative Jordi Resulted Current Medications Medications (Trade) Dose Ordered Sig/Subhash Route PRN Reason Start Time Stop Time Status Last Admin Dose Admin Acetaminophen (Tylenol) 650 mg Q4H PRN ORAL Mild Pain/Temp > 100.5 05/22/17 13:15 06/21/17 13:14 Atorvastatin Calcium (Lipitor) 10 mg BEDTIME GT 05/22/17 21:00 06/21/17 20:59 Bisacodyl (Dulcolax) 10 mg DAILYPRN PRN RECTAL Constipation 05/22/17 13:00 06/21/17 12:59 Carvedilol (Coreg) 3.125 mg EVERY 12 HOURS GT 05/22/17 21:00 06/21/17 20:59 Dextrose/Sodium Chloride 1,000 ml @ 70 mls/hr [id number] IV 05/23/17 12:45 06/22/17 12:44 05/24/17 02:45 Docusate Sodium (Colace) 100 mg DAILY GT 05/23/17 09:00 06/22/17 08:59 Ferrous Sulfate (Feosol) 300 mg DAILY GT 05/23/17 09:00 06/22/17 08:59 Finasteride (Proscar) 5 mg DAILY ORAL 05/23/17 09:00 06/22/17 08:59 Heparin Sodium (Porcine) (Heparin 5000 units/ml) 5,000 units EVERY 12 HOURS SUBQ 05/22/17 21:00 06/21/17 20:59 05/24/17 08:55 Lansoprazole (Prevacid) 30 mg DAILY GT 05/23/17 09:00 06/22/17 08:59 Magnesium Hydroxide (Mom) 30 ml DAILYPRN PRN GT CONSTIPATION 2ND LINE AGENT 05/22/17 13:15 06/21/17 13:14 Sitagliptin Phosphate (Januvia) 50 mg DAILY GT 05/23/17 09:00 06/22/17 08:59 Sodium Phosphate (Fleet's Sodium Phosl Enema) 133 ml DAILYPRN PRN RECTAL Constipation Last Line Agent 05/22/17 13:15 06/21/17 13:14 Tamsulosin HCl (Flomax) 0.4 mg DAILY ORAL 05/23/17 09:00 06/22/17 08:59 Zolpidem Tartrate (Ambien) 5 mg HSPRN PRN GT Insomnia 05/22/17 13:15 05/29/17 13:14 REJI OJEDA May 24, 2017 10:11
--- NOTE | 2017-05-24 10:14 | General Progress Note ---
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 Assessment/Plan family decided for hospice care no replacement of GT per family fu Subjective ROS Limited/Unobtainable: No Allergies: Coded Allergies: No Known Allergies (Unverified , 01/07/17) Objective Last 24 Hour Vital Signs Date Time Temp Pulse Resp B/P (MAP) Pulse Ox O2 Delivery O2 Flow Rate FiO2 05/24/17 09:14 86 19 35 05/24/17 08:23 97 136/87 05/24/17 08:00 87 05/24/17 08:00 35 05/24/17 08:00 97.7 97 22 136/87 100 Mechanical Ventilator 35 05/24/17 07:04 91 24 35 05/24/17 05:05 93 26 35 05/24/17 04:00 97.5 97 29 148/77 100 Mechanical Ventilator 35 05/24/17 04:00 96 05/24/17 04:00 35 05/24/17 03:01 102 24 35 05/24/17 01:06 89 28 35 05/24/17 00:00 97.9 88 22 105/58 100 Mechanical Ventilator 35 05/24/17 00:00 80 05/24/17 00:00 35 05/23/17 22:58 81 17 35 05/23/17 21:05 87 19 35 05/23/17 20:20 83 135/61 05/23/17 20:00 35 05/23/17 20:00 85 05/23/17 20:00 97.3 83 21 135/61 100 Mechanical Ventilator 35 05/23/17 19:13 84 17 35 05/23/17 17:17 92 18 35 05/23/17 16:00 97.3 89 22 147/74 100 Mechanical Ventilator 35 05/23/17 16:00 35 05/23/17 16:00 89 05/23/17 15:11 89 18 35 05/23/17 13:00 83 18 35 05/23/17 12:00 80 05/23/17 12:00 35 9/16/17 11:47 98.2 79 22 132/76 100 Mechanical Ventilator 35 05/23/17 11:04 82 17 35 Intake and Output 05/24/17 05/25/17 19:00 07:00 Intake Total 140 ml Balance 140 ml IV Total 140 ml Height (Feet): 5 Height (Inches): 8.00 Weight (Pounds): 158 General Appearance: lethargic EENT: normal ENT inspection Neck: supple Cardiovascular: normal rate Respiratory/Chest: decreased breath sounds Abdomen: soft, hypoactive bowel sounds Extremities: non-tender MARCY MENSAH May 24, 2017 10:14
[2017-05-24 11:56] VITALS: BP 149/60
--- NOTE | 2017-05-24 15:52 | Wound Care Consultation ---
Wound Assessment Wound Assessment #1: Wound Number: 1 Wound Present on Admission: Yes New Wound: No Status Change of Wound: No Wound Location Body Site Modif: right Wound Location Body Site: buttocks Wound Type: pressure ulcer Anette Test: Does not Anette Pressure Ulcer Stage: II Wound Thickness: Partial Thickness Wound Length: 1.0 Wound Width: 5.0 Wound Depth: less than 0.1 Percent of Wound [place]/Red: 100 Wound Drainage Description: Serosanguineous Wound Drainage Amount: Scant Wound Drainage Odor: None/Absent Tissue Surrounding Wound: Erythemic Wound General Appearance: Reddened, Draining Wound Assessment #2: Wound Number: 2 Wound Present on Admission: Yes New Wound: No Status Change of Wound: No Wound Location Body Site Modif: mid Wound Location Body Site: other - sacrococcygeal Wound Type: pressure ulcer Anette Test: Does not Anette Pressure Ulcer Stage: III - scattered Wound Thickness: Partial Thickness Wound Length: 4.5 Wound Width: 2.5 Wound Depth: 0.2 Percent of Wound [place]/Red: 80 Percent of Wound Bed Yellow/Wh: 20 Wound Drainage Description: Serosanguineous Wound Drainage Amount: Scant Wound Drainage Odor: None/Absent Tissue Surrounding Wound: Erythemic Wound General Appearance: Reddened, Draining Wound Assessment #3: Wound Number: 3 Wound Present on Admission: Yes New Wound: No Status Change of Wound: No Wound Location Body Site Modif: right Wound Location Body Site: heel Wound Type: pressure ulcer Anette Test: Does not Anette Pressure Ulcer Stage: IV/unstageable Wound Thickness: Full Thickness Wound Length: 11.0 Wound Width: 6.0 Wound Depth: utd Percent of Wound Black/Brown: 100 Wound Drainage Description: Serosanguineous Wound Drainage Amount: Scant Wound Drainage Odor: Foul Odor Tissue Surrounding Wound: Indurated Wound General Appearance: Blackened, Draining, Necrotic Wound Assessment #4: Wound Number: 4 Wound Present on Admission: Yes New Wound: No Status Change of Wound: No Wound Location Body Site Modif: right, mid, lateral Wound Location Body Site: foot Wound Type: pressure ulcer Anette Test: Does not Anette Pressure Ulcer Stage: IV/unstageable Wound Thickness: Full Thickness Wound Length: 4.0 Wound Width: 6.0 Wound Depth: utd Percent of Wound Black/Brown: 100 Wound Drainage Description: Serosanguineous Wound Drainage Amount: Scant Wound Drainage Odor: Mild Odor Tissue Surrounding Wound: Indurated Wound General Appearance: Blackened, Draining, Necrotic Wound Assessment #5: Wound Number: 5 Wound Present on Admission: Yes New Wound: No Status Change of Wound: No Wound Location Body Site Modif: right, lateral Wound Location Body Site: metatarsal head - 5th Wound Type: pressure ulcer Anette Test: Does not Anette Pressure Ulcer Stage: deep tissue injury Wound Thickness: Full Thickness Wound Length: 2.0 Wound Width: 3.0 Wound Depth: utd Percent of Wound Purple/Maroon: 100 Wound Drainage Amount: None Wound Drainage Odor: None/Absent Tissue Surrounding Wound: Indurated Wound General Appearance: Reddened - purple, Draining Wound Assessment #6: Wound Number: 6 Wound Present on Admission: Yes New Wound: No Status Change of Wound: No Wound Location Body Site Modif: left Wound Location Body Site: trochanter Wound Type: pressure ulcer Anette Test: Does not Anette Pressure Ulcer Stage: IV/unstageable Wound Thickness: Full Thickness Wound Length: 1.0 Wound Width: 3.0 Wound Depth: utd Percent of Wound Bed Yellow/Wh: 80 Percent of Wound Black/Brown: 20 Wound Drainage Description: Serosanguineous Wound Drainage Amount: Scant Wound Drainage Odor: None/Absent Tissue Surrounding Wound: Macerated Wound General Appearance: Draining, Necrotic Wound Assessment #7: Wound Number: 7 Wound Present on Admission: Yes New Wound: No Status Change of Wound: No Wound Location Body Site Modif: left Wound Location Body Site: heel Wound Type: pressure ulcer Anette Test: Does not Anette Pressure Ulcer Stage: IV/unstageable Wound Thickness: Full Thickness Wound Length: 9.0 Wound Width: 9.0 Wound Depth: utd Percent of Wound Black/Brown: 100 Wound Drainage Description: Serosanguineous Wound Drainage Amount: Moderate Wound Drainage Odor: Foul Odor Tissue Surrounding Wound: Indurated Wound General Appearance: Blackened, Draining, Necrotic Wound Assessment #8: Wound Number: 8 Wound Present on Admission: Yes New Wound: No Status Change of Wound: No Wound Location Body Site Modif: left, lateral Wound Location Body Site: foot Wound Type: pressure ulcer Anette Test: Does not Anette Pressure Ulcer Stage: IV/unstageable Wound Thickness: Full Thickness Wound Length: 5.0 Wound Width: 4.5 Wound Depth: utd Percent of Wound Black/Brown: 100 Wound Drainage Description: Serosanguineous Wound Drainage Amount: Scant Wound Drainage Odor: None/Absent Tissue Surrounding Wound: Indurated Wound General Appearance: Blackened, Draining, Necrotic Wound Assessment #9: Wound Number: 9 Wound Present on Admission: Yes New Wound: No Status Change of Wound: No Wound Location Body Site Modif: left, lateral Wound Location Body Site: metatarsal head - 5th Wound Type: pressure ulcer Anette Test: Does not Anette Pressure Ulcer Stage: IV/unstageable Wound Thickness: Full Thickness Wound Length: 2.0 Wound Width: 2.0 Wound Depth: utd Percent of Wound Black/Brown: 100 Wound Drainage Description: Serosanguineous Wound Drainage Amount: Scant Wound Drainage Odor: None/Absent Tissue Surrounding Wound: Indurated Wound General Appearance: Blackened, Draining, Necrotic Wound Assessment #10: Wound Number: 10 Wound Present on Admission: Yes New Wound: No Status Change of Wound: No Wound Location Body Site Modif: left Wound Location Body Site: malleolus/ankle Wound Type: pressure ulcer Anette Test: Does not Anette Pressure Ulcer Stage: IV/unstageable Wound Thickness: Full Thickness Wound Length: 2.5 Wound Width: 2.5 Wound Depth: utd Percent of Wound Bed Yellow/Wh: 70 Percent of Wound Black/Brown: 30 Wound Drainage Description: Serosanguineous Wound Drainage Amount: Scant Wound Drainage Odor: None/Absent Tissue Surrounding Wound: Erythemic Wound General Appearance: Draining, Necrotic Wound Assessment #11: Wound Number: 11 Wound Present on Admission: Yes New Wound: No Status Change of Wound: No Wound Location Body Site Modif: left, lower, lateral Wound Location Body Site: leg Wound Type: pressure ulcer Anette Test: Does not Anette Pressure Ulcer Stage: IV/unstageable Wound Thickness: Full Thickness Wound Length: 2.0 Wound Width: 5.0 Wound Depth: utd Percent of Wound Bed Yellow/Wh: 100 Wound Drainage Description: Serosanguineous Wound Drainage Amount: Scant Wound Drainage Odor: None/Absent Tissue Surrounding Wound: Macerated Wound General Appearance: Draining, Necrotic Wound Comment #1 Right buttock stage II pressure ulcer #2 Sacrococcygeal scattered stage II pressure ulcer #3 Right heel unstageable pressure ulcer #4 Right lateral mid foot unstageable pressure ulcer #5 Right 5th metatarsal head DTI pressure ulcer #6 Left hip unstageable pressure ulcer #7 Left heel unstageable pressure ulcer #8 Left lateral mid foot unstageable pressure ulcer #9 Left 5th metatarsal head unstageable pressure ulcer #10 Left lateral malleolus unsatgeable pressure ulcer #11 Left lateral lower leg unstageable pressure ulcer Recommendation -Local wound care per protocol -Keep clean and dry -Turn and reposition -Optimize nutrition -Offload both heels -Heel protector on both heels -Low air loss mattress -podiatry consult -Assess and f/u accordingly MARIANO SAUER RN May 24, 2017 15:52
--- NOTE | 2017-05-24 15:55 | Cardiology Report ---
APPROVED REPORT EKG Measurement Heart [id number] [place] [id number] Normal sinus rhythm Nonspecific T wave abnormality Abnormal ECG
[2017-05-24 16:00] VITALS: BP 143/84
[2017-05-24 20:00] VITALS: BP 127/75
[2017-05-25] VITALS: BP 145/85
[2017-05-25 04:00] VITALS: BP 157/83
[2017-05-25 04:56] LABS: INR 1.3 (0.9-1.1); PROTHROMBIN TIME 13.3 SEC (9.30-11.50)
[2017-05-25] MEDS ORDERED: ceFAZolin sod 0.5 GM in D5W 55 ML IV ONE (08:00)
[2017-05-25 08:14] VITALS: BP 136/63
[2017-05-25] MEDS: D5NS 1,000 ML IV SCH ×2 (08:16→21:31)
--- NOTE | 2017-05-25 08:25 | General Progress Note ---
Assessment/Plan Problem List: (1) Respiratory failure ICD Codes: J96.90 - Respiratory failure, unspecified, unspecified whether with hypoxia or hypercapnia SNOMED: 982453302 (2) Pacemaker ICD Codes: Z95.0 - Presence of cardiac pacemaker SNOMED: 603998163, [id number] Assessment/Plan gt replacement today vent support resp care skin care dnr Subjective ROS Limited/Unobtainable: Yes Constitutional: Reports: malaise, weakness HEENT: Reports: no symptoms Cardiovascular: Reports: no symptoms Respiratory: Reports: cough, shortness of breath, sputum Gastrointestinal/Abdominal: Reports: difficulty swallowing Genitourinary: Reports: no symptoms Neurologic/Psychiatric: Reports: pre-existing deficit Endocrine: Reports: no symptoms Hematologic/Lymphatic: Reports: no symptoms Allergies: Coded Allergies: No Known Allergies (Unverified , 01/07/17) All Systems: reviewed and negative except above Subjective family now requesting gt be replaced. still dnr. no fever or chills. on ivf. Objective Last 24 Hour Vital Signs Date Time Temp Pulse Resp B/P (MAP) Pulse Ox O2 Delivery O2 Flow Rate FiO2 05/25/17 08:14 98.4 80 17 136/63 100 Mechanical Ventilator 35 05/25/17 06:51 87 18 30 05/25/17 05:17 84 17 30 05/25/17 04:00 97.9 102 22 157/83 100 Mechanical Ventilator 35 05/25/17 04:00 79 05/25/17 04:00 35 05/25/17 02:11 84 17 30 05/25/17 00:59 82 17 30 05/25/17 00:00 84 05/25/17 00:00 98.1 84 22 145/85 100 Mechanical Ventilator 35 05/25/17 00:00 35 05/24/17 23:02 85 17 30 05/24/17 20:47 78 17 30 05/24/17 20:00 81 05/24/17 20:00 35 05/24/17 20:00 98.2 88 22 127/75 100 Mechanical Ventilator 35 05/24/17 19:05 86 20 30 05/24/17 16:46 90 20 30 05/24/17 16:00 35 05/24/17 16:00 90 05/24/17 16:00 97.7 92 22 143/84 100 Mechanical Ventilator 35 05/24/17 15:36 92 19 35 05/24/17 12:55 85 20 35 05/24/17 12:00 91 05/24/17 12:00 35 05/24/17 11:56 97.7 85 22 149/60 100 Mechanical Ventilator 35 05/24/17 10:51 92 20 35 05/24/17 09:14 86 19 35 05/24/17 08:23 97 136/87 Laboratory Tests 05/25/17 03:50: Prothrombin Time 13.3H, Prothromb Time International Ratio 1.3H Height (Feet): 5 Height (Inches): 7.00 Weight (Pounds): 156 Objective General Appearance: WD/WN, alert, confused. no distress Neck: supple, no jvd, trach midline Cardiovascular: regular rhythm Respiratory/Chest: lungs clear Abdomen: normal bowel sounds, non tender, soft, no organomegaly Edema: no edema noted Arm (L), no edema noted Arm (R), no edema noted Leg (L), no edema noted Leg (R), no edema noted Pedal (L), no edema noted Pedal (R), no edema noted Generalized WENDIE CASTELLANOS May 25, 2017 08:25
--- NOTE | 2017-05-25 08:57 | Anethesia Preoperative Eval ---
Anesthesia Pre-op PMH/ROS General Date of Evaluation: May 25, 2017 Time of Evaluation: 08:52 Anesthesiologist: nallely ASA Score: ASA 4 Mallampati Score Class I : Soft palate, uvula, fauces, pillars visible Class II: Soft palate, uvula, fauces visible Class III: Soft palate, base of uvula visible Class IV: Only hard plate visible Mallampati Classification: Class II Surgeon: mt Diagnosis: dysphagia, failure to thrive Surgical Procedure: egd/peg Anesthesia History: none Family History: no anesthesia problems Allergies: Coded Allergies: No Known Allergies (Unverified , 01/07/17) Medications: see eMAR Past Medical History Cardiovascular: Reports: CAD, arrhythmia, other - pacemaker Pulmonary: Reports: COPD Gastrointestinal/Genitourinary: Reports: GERD, ESRD Neurologic/Psychiatric: Reports: dementia, depression/anxiety Endocrine: Reports: DM Anesthesia Pre-op Phys. Exam Physician Exam Last Vital Signs Date Time Temp Pulse Resp B/P (MAP) Pulse Ox O2 Delivery O2 Flow Rate FiO2 05/25/17 08:30 82 18 30 05/25/17 08:14 98.4 136/63 100 Mechanical Ventilator Constitutional: NAD Neurologic: other Cardiovascular: other - paced rhythm Respiratory: other - ventilated ac16 vt 600 Gastrointestinal: S/NT/ND Airway Exam Mallampati Score: Class II MO: limited Neck: tracheostomy TMD: 2fb ROM: limited Teeth: missing Anesthesia Pre-op A/P Labs Labs Test 05/22/17 10:10 05/22/17 10:35 05/23/17 03:15 05/25/17 03:50 White Blood Count 8.7 K/UL (4.8-10.8) 8.1 K/UL (4.8-10.8) Red Blood Count 2.93 M/UL (4.70-6.10) 3.57 M/UL (4.70-6.10) Hemoglobin 8.0 G/DL (14.2-18.0) 9.8 G/DL (14.2-18.0) Hematocrit 25.9 % (42.0-52.0) 31.9 % (42.0-52.0) Mean Corpuscular Volume 88 FL (80-99) 89 FL (80-99) Mean Corpuscular Hemoglobin 27.2 PG (27.0-31.0) 27.6 PG (27.0-31.0) Mean Corpuscular Hemoglobin Concent 30.8 G/DL (32.0-36.0) 30.9 G/DL (32.0-36.0) Red Cell Distribution Width 17.0 % (11.6-14.8) 15.8 % (11.6-14.8) Platelet Count 473 K/UL (150-450) 487 K/UL (150-450) Mean Platelet Volume 5.4 FL (6.5-10.1) 5.0 FL (6.5-10.1) Neutrophils (%) (Auto) 73.0 % (45.0-75.0) 74.4 % (45.0-75.0) Lymphocytes (%) (Auto) 16.3 % (20.0-45.0) 14.6 % (20.0-45.0) Monocytes (%) (Auto) 9.2 % (1.0-10.0) 9.7 % (1.0-10.0) Eosinophils (%) (Auto) 1.0 % (0.0-3.0) 0.4 % (0.0-3.0) Basophils (%) (Auto) 0.5 % (0.0-2.0) 0.9 % (0.0-2.0) Prothrombin Time 11.9 SEC (9.30-11.50) 13.3 SEC (9.30-11.50) Prothromb Time International Ratio 1.1 (0.9-1.1) 1.3 (0.9-1.1) Activated Partial Thromboplast Time 27 SEC (23-33) Sodium Level 131 mEQ/L (135-145) Potassium Level 4.6 mEQ/L (3.4-4.9) Chloride Level 95 mEQ/L (98-107) Carbon Dioxide Level 27 mEQ/L (20-30) Anion Gap 9 (5-15) Blood Urea Nitrogen 32 mg/dL (7-23) Creatinine 0.9 mg/dL (0.7-1.2) Estimat Glomerular Filtration Rate mL/min (>60) Glucose Level 151 mg/dL (74-106) Lactic Acid Level 1.30 mmol/L (0.66-2.22) Calcium Level 8.4 mg/dL (8.6-10.2) Total Bilirubin 0.3 mg/dL (0.0-1.2) Aspartate Amino Transf (AST/SGOT) 11 U/L (5-40) Alanine Aminotransferase (ALT/SGPT) 10 U/L (3-41) Alkaline Phosphatase 69 U/L (40-129) Total Creatine Kinase 167 U/L (38-174) Creatine Kinase MB 3.5 ng/mL (< 6.7) Creatine Kinase MB Relative Index 2.0 Troponin I < 0.30 ng/mL (<=0.30) Total Protein 7.4 g/dL (6.6-8.7) Albumin 2.0 g/dL (3.5-5.2) Globulin 5.4 g/dL Albumin/Globulin Ratio 0.3 (1.0-2.7) Urine Color Pale yellow Urine Appearance Slightly cloudy Urine pH 7 (4.5-8.0) Urine Specific [place] 1.005 (1.005-1.035) Urine Protein 2+ (NEGATIVE) Urine Glucose (UA) Negative (NEGATIVE) Urine Ketones Negative (NEGATIVE) Urine Occult Blood 2+ (NEGATIVE) Urine Nitrite Negative (NEGATIVE) Urine Bilirubin Negative (NEGATIVE) Urine Urobilinogen Normal MG/DL (0.0-1.0) Urine Leukocyte Esterase 3+ (NEGATIVE) Urine RBC 2-4 /HPF (0 - 0) Urine WBC 5-10 /HPF (0 - 0) Urine Squamous Epithelial Cells Occasional /LPF Urine Bacteria Moderate /HPF (NONE) Urine Yeast Few /HPF (NONE) Coagulation Test 05/25/17 03:50 Prothrombin Time 13.3 SEC (9.30-11.50) H Prothromb Time International Ratio 1.3 (0.9-1.1) H Risk Assessment & Plan Assessment: asa4 Plan: mac Status Change Before Surgery: No Pre-Antibiotics Drug: cephazolin Given Within 1 Hr of Incision: Yes MIKE TATUM May 25, 2017 08:57
--- NOTE | 2017-05-25 08:59 | Pulmonology Progress Note ---
Assessment/Plan Assessment/Plan IMPRESSION 1. anemia, possibly chronic disease 2. Chronic respiratory failure, status post tracheostomy. 3. Chronic diastolic congestive heart failure. 4. Paroxysmal atrial fibrillation 5. Permanent pacemaker. 6. Multidrug resistant Klebsiella and Acinetobacter pneumonia. per history 7. Fungal urinary tract infection. per history 8. Chronic encephalopathy. 9. Multiple pressure ulcers 10. Diabetes mellitus. 11. Bed bound 12. Chronic renal failure. 13. G-tube. PLAN hospice care ? no GT planned ventilator support ? dc withdraw care per family decision impression, plan, and exam edited and reviewed in detail care discussed with RN Subjective ROS Limited/Unobtainable: Yes Allergies: Coded Allergies: No Known Allergies (Unverified , 01/07/17) Subjective comfort care only d/w nursing noted and reviewed Objective Last 24 Hour Vital Signs Date Time Temp Pulse Resp B/P (MAP) Pulse Ox O2 Delivery O2 Flow Rate FiO2 05/25/17 08:30 82 18 30 05/25/17 08:14 98.4 80 17 136/63 100 Mechanical Ventilator 35 05/25/17 06:51 87 18 30 05/25/17 05:17 84 17 30 05/25/17 04:00 97.9 102 22 157/83 100 Mechanical Ventilator 35 05/25/17 04:00 79 05/25/17 04:00 35 05/25/17 02:11 84 17 30 05/25/17 00:59 82 17 30 05/25/17 00:00 84 05/25/17 00:00 98.1 84 22 145/85 100 Mechanical Ventilator 35 05/25/17 00:00 35 05/24/17 23:02 85 17 30 05/24/17 20:47 78 17 30 05/24/17 20:00 81 05/24/17 20:00 35 05/24/17 20:00 98.2 88 22 127/75 100 Mechanical Ventilator 35 05/24/17 19:05 86 20 30 05/24/17 16:46 90 20 30 05/24/17 16:00 35 05/24/17 16:00 90 05/24/17 16:00 97.7 92 22 143/84 100 Mechanical Ventilator 35 05/24/17 15:36 92 19 35 05/24/17 12:55 85 20 35 05/24/17 12:00 91 05/24/17 12:00 35 05/24/17 11:56 97.7 85 22 149/60 100 Mechanical Ventilator 35 05/24/17 10:51 92 20 35 05/24/17 09:14 86 19 35 Objective WDWN NAD chronically ill trach coarse breath sounds bilaterally without rhonchi or wheeze [id number] without MRG NABS nontender no HSM; GT out no CC mild edema contractures nonfocal Microbiology Date/Time Source Procedure Growth Status 05/22/17 10:10 Blood Blood Culture - Preliminary NO GROWTH AFTER 48 HOURS Resulted 05/22/17 09:50 Blood Blood Culture - Preliminary NO GROWTH AFTER 48 HOURS Resulted 05/22/17 10:35 Urine,Clean Catch Urine Culture - Preliminary Gram Negative Jordi Gram Negative Bacillus 2 Streptococcus Species Resulted Laboratory Tests 05/25/17 03:50: Prothrombin Time 13.3H, Prothromb Time International Ratio 1.3H Current Medications Medications (Trade) Dose Ordered Sig/Subhash Route PRN Reason Start Time Stop Time Status Last Admin Dose Admin Acetaminophen (Tylenol) 650 mg Q4H PRN ORAL Mild Pain/Temp > 100.5 05/22/17 13:15 06/21/17 13:14 Atorvastatin Calcium (Lipitor) 10 mg BEDTIME GT 05/22/17 21:00 06/21/17 20:59 Bisacodyl (Dulcolax) 10 mg DAILYPRN PRN RECTAL Constipation 05/22/17 13:00 06/21/17 12:59 Carvedilol (Coreg) 3.125 mg EVERY 12 HOURS GT 05/22/17 21:00 06/21/17 20:59 Dextrose/Sodium Chloride 1,000 ml @ 70 mls/hr [id number] IV 05/23/17 12:45 06/22/17 12:44 05/25/17 08:16 Docusate Sodium (Colace) 100 mg DAILY GT 05/23/17 09:00 06/22/17 08:59 Ferrous Sulfate (Feosol) 300 mg DAILY GT 05/23/17 09:00 06/22/17 08:59 Finasteride (Proscar) 5 mg DAILY ORAL 05/23/17 09:00 06/22/17 08:59 Heparin Sodium (Porcine) (Heparin 5000 units/ml) 5,000 units EVERY 12 HOURS SUBQ 05/22/17 21:00 06/21/17 20:59 05/24/17 08:55 Lansoprazole (Prevacid) 30 mg DAILY GT 05/23/17 09:00 06/22/17 08:59 Magnesium Hydroxide (Mom) 30 ml DAILYPRN PRN GT CONSTIPATION 2ND LINE AGENT 05/22/17 13:15 06/21/17 13:14 Sitagliptin Phosphate (Januvia) 50 mg DAILY GT 05/23/17 09:00 06/22/17 08:59 Sodium Phosphate (Fleet's Sodium Phosl Enema) 133 ml DAILYPRN PRN RECTAL Constipation Last Line Agent 05/22/17 13:15 06/21/17 13:14 Tamsulosin HCl (Flomax) 0.4 mg DAILY ORAL 05/23/17 09:00 06/22/17 08:59 Zolpidem Tartrate (Ambien) 5 mg HSPRN PRN GT Insomnia 05/22/17 13:15 05/29/17 13:14 REJI OJEDA May 25, 2017 08:59
[2017-05-25] MEDS: Ferrous Sulfate 300 MG/5 ML UDC GT SCH (09:00)
[2017-05-25] MEDS: Heparin 5000 units/ml inj SUBQ SCH ×2 (09:00→20:21)
[2017-05-25] MEDS ORDERED: Lidocaine 1% MPF 10mg/ml 5ml ONE (09:00)
[2017-05-25] MEDS: sitaGLIPtin 25mg tab GT SCH (09:00)
[2017-05-25] MEDS: Docusate 100mg/10ml Liq GT SCH (09:00)
[2017-05-25] MEDS ORDERED: Propofol 200mg/20ml IV ONE (09:00)
[2017-05-25] MEDS: Tamsulosin 0.4mg cap ORAL SCH (09:00)
--- NOTE | 2017-05-25 09:17 | Pre-Procedure Note/Attestation ---
Pre-Procedure Note/Attestation Complete Prior to Procedure Planned Procedure: not applicable Procedure Narrative: PEG Indications for Procedure Pre-Operative Diagnosis: dysphagia Attestation I attest that I discussed the nature of the procedure; its benefits; risks and complications; and alternatives (and the risks and benefits of such alternatives ), prior to the procedure, with the patient (or the patient's legal technical sales representative). I attest that, if there was a reasonable possibility of needing a blood transfusion, the patient (or the patient's legal technical sales representative) was given the [facility] standardized written summary, pursuant to the [place] Blood Safety Act ([place] Health and Safety Code # 1645, as amended). I attest that I re-evaluated the patient just prior to the surgery and that there has been no change in the patient's H&P, except as documented below: HITESH BURNS May 25, 2017 09:17
[2017-05-25] MEDS ORDERED: DiphenhydrAMINE 50mg/ml Inj IVP PRN (09:45)
[2017-05-25] MEDS ORDERED: Atropine Inj 1mg/10ml Syr IV PRN (09:45)
[2017-05-25] MEDS ORDERED: Hydromorphone 0.5mg/0.5ml inj IVP PRN (09:45)
[2017-05-25] MEDS ORDERED: Midazolam 2mg/2ml Inj IVP PRN (09:45)
--- NOTE | 2017-05-25 09:45 | Immediate Post-Op Evaluation ---
Immediate Post-Op Evalulation Immediate Post-Op Evalulation Procedure: egd/ peg Date of Evaluation: May 25, 2017 Time of Evaluation: 09:57 IV Fluids: 0.9ns 60ml Blood Products: none Estimated Blood Loss: negligible Blood Pressure Systolic: 137 Blood Pressure Diastolic: 77 Pulse Rate: 84 Respiratory Rate: 16 O2 Sat by Pulse Oximetry: 100 Temperature (Fahrenheit): 98.4 Pain Score (1-10): 0 Nausea: No Vomiting: No Complications none Patient Status: reacts, ventilated Hydration Status: adequate Drug: cefazolin Given Within 1 Hr of Incision: Yes MIKE TATUM May 25, 2017 09:45
--- NOTE | 2017-05-25 10:02 | 48 Hour Post Anesthesia Eval ---
Post Anesthesia Evaluation Procedure: egd/ peg Date of Evaluation: May 25, 2017 Time of Evaluation: 10:00 Blood Pressure Systolic: 139 0: 78 Pulse Rate: 84 Respiratory Rate: 16 Temperature (Fahrenheit): 98.4 O2 Sat by Pulse Oximetry: 100 Airway: other - tracheostomy/vent dependent Nausea: No Vomiting: No Pain Intensity: 0 Hydration Status: adequate Cardiopulmonary Status: stable Mental Status/LOC: patient returned to baseline Post-Anesthesia Complications: none Follow-up care needed: N/A MIKE TATUM May 25, 2017 10:01
--- NOTE | 2017-05-25 10:13 | General Progress Note ---
Assessment/Plan Assessment/Plan Assessment - Anemia, recent negative GI w/u - GT complication - GT removed - dysphagia - resp failure Recommendations - NPO - Monitor CBC - Old GT site care - New PEG today Subjective Allergies: Coded Allergies: No Known Allergies (Unverified , 01/07/17) Subjective above noted d/w DTR over weekend she now requests to proceed with PEG patient more responsive Objective Last 24 Hour Vital Signs Date Time Temp Pulse Resp B/P (MAP) Pulse Ox O2 Delivery O2 Flow Rate FiO2 05/25/17 10:01 84 16 100 05/25/17 09:45 84 16 100 05/25/17 08:30 82 18 30 05/25/17 08:14 98.4 80 17 136/63 100 Mechanical Ventilator 35 05/25/17 06:51 87 18 30 05/25/17 05:17 84 17 30 05/25/17 04:00 97.9 102 22 157/83 100 Mechanical Ventilator 35 05/25/17 04:00 79 05/25/17 04:00 35 05/25/17 02:11 84 17 30 05/25/17 00:59 82 17 30 05/25/17 00:00 84 05/25/17 00:00 98.1 84 22 145/85 100 Mechanical Ventilator 35 05/25/17 00:00 35 05/24/17 23:02 85 17 30 05/24/17 20:47 78 17 30 05/24/17 20:00 81 05/24/17 20:00 35 05/24/17 20:00 98.2 88 22 127/75 100 Mechanical Ventilator 35 05/24/17 19:05 86 20 30 05/24/17 16:46 90 20 30 05/24/17 16:00 35 05/24/17 16:00 90 05/24/17 16:00 97.7 92 22 143/84 100 Mechanical Ventilator 35 05/24/17 15:36 92 19 35 05/24/17 12:55 85 20 35 05/24/17 12:00 91 05/24/17 12:00 35 05/24/17 11:56 97.7 85 22 149/60 100 Mechanical Ventilator 35 05/24/17 10:51 92 20 35 Laboratory Tests 05/25/17 03:50: Prothrombin Time 13.3H, Prothromb Time International Ratio 1.3H Height (Feet): 5 Height (Inches): 7.00 Weight (Pounds): 156 Objective Thin man NCAT supple CTA RR soft ND NT, GT site closed no edema HITESH BURNS May 25, 2017 10:13
--- NOTE | 2017-05-25 10:18 | Endoscopy Procedure Note ---
Endoscopy Procedure Note Indication for Procedure: dysphagia Procedures Performed: PEG Operative Findings/Diagnosis: GT placed Specimen: none Pt Tolerated Procedure Well: Yes Estimated Blood Loss: none Anesthesiologist: see report Anesthesia: MAC Medication Given: see anesthesia record Implant(s) used?: No 50 yrs or older w/o bx or poly: Not Applicable 10yrs. F/U not recommended: Not Applicable If not recommended, why?: HITESH BURNS May 25, 2017 10:18
--- NOTE | 2017-05-25 10:19 | Brief Operative Note ---
Immediate Post Operative Note Operative Note Chief Complaint: dysphagia Pre-op Diagnosis: dysphagia Procedure: EGD, PEG Post-op Diagnosis: S/P PEG Surgeon: mt Anesthesiologist: see report Anesthesia: MAC Specimen: none Complications: none Condition: stable Fluids: see anesthesia Estimated Blood Loss: none Drains: none Implant(s) used?: No HITESH BURNS May 25, 2017 10:19
[2017-05-25 12:00] VITALS: BP 108/65
--- NOTE | 2017-05-25 15:27 | Diagnostic Imaging Report ---
Clinical Indication: Abdominal tenderness Technique: Patient given enteric contrast via gastrostomy. IV administration nonionic contrast. Venous phase spiral acquisition obtained through the abdomen and pelvis. Multiplanar reconstructions were generated. Total dose length product 925 mGycm. CTDIvol(s) 18 mGy. Dose reduction achieved using automated exposure control Comparison: None Findings: There is evidence of mild anasarca. There is a moderate to large right pleural effusion. There is a small left pleural effusion. There is what appears to be mild pulmonary interstitial edema within the visualized portions of the lung bases. There is generalized mild edema of the subcutaneous fat, and there is some congestion of the mesentery, as well as trace fluid within the bilateral paracolic gutters, right greater than left. There is colonic diverticulosis. No evidence of diverticulitis. The appendix has an unusual appearance, with the area of the tip being low in attenuation surrounded by somewhat high attenuation fluid within the inferior right paracolic gutter. The small bowel is nondilated, and contrast is seen throughout the entirety of the small bowel and into the ascending colon. There is a gastrostomy tube which is in good position. Some free intraperitoneal air is seen in the epigastric region. No contrast extravasation is demonstrated. There is a large duodenal diverticulum. The liver is unremarkable. The gallbladder contains a tiny gallstone. No biliary ductal dilatation. The pancreas is somewhat atrophic. The spleen and adrenals are unremarkable. The kidneys demonstrate bilateral cysts, as well as bilateral subcentimeter low-attenuation lesions which are too small to characterize. In the medial interpolar region of the right kidney, there is a 2 cm lesion which demonstrates nonspecific soft tissue attenuation, however. There is a large upper pole cyst in the left kidney which measures 7.2 cm long axis dimension. The right kidney demonstrates a 5 mm nonobstructive calculus within the collecting system. There is no evidence of hydronephrosis. The bladder is markedly thick walled. A small amount of air is seen within the bladder lumen No pelvic mass or adenopathy. The bones demonstrate degenerative changes of both hips. Considerable heterotopic ossification is seen surrounding the left hip. There is also abnormal soft tissue attenuation material surrounding both hips. There are degenerative changes of the lumbosacral spine. There is a wedge/vertebral plana burst/compression fracture deformity of the L2 vertebral body. This demonstrates considerable sclerosis. There is degenerative remodeling of the L4 and L5 vertebral bodies. Pacemaker wires are seen within the heart. Impression: Mild anasarca, with moderate to large right pleural effusion, small left pleural effusion, mild pulmonary interstitial edema, mild edema of the subcutaneous fat, mesenteric congestion, and trace fluid within the right lateral paracolic gutters, right greater than left Unusual appearance of the appendiceal tip, which appears to be surrounded by fluid and demonstrates unusual central low-attenuation. Suspect fluid is related to the generalized congestion. However, the possibility of acute appendicitis of the distal appendix cannot be completely excluded. 2 cm lesion in the medial interpolar region of the right kidney. Suspect this represents a complex proteinaceous cyst, but the possibility of a solid renal neoplasm cannot be ruled out. Consider further evaluation with ultrasound and/or MRI with renal protocol Other renal cysts. Subcentimeter low-attenuation renal lesions which are too small to characterize, most likely benign simple cysts no further followup for these is necessary Marked bladder wall thickening. Main differential considerations are cystitis, bladder outlet obstruction Small amount of air within the bladder, likely indicating prior -- instrumentation. There is no history of recent instrumentation, the possibility of emphysematous cystitis should be considered Nonobstructive 5 mm right renal collecting system calculus L2 vertebral body compression fracture, age indeterminate. Consider MRI for further evaluation if this is considered clinically relevant Gastrostomy in good position. A small amount of free intraperitoneal air, presumably related to such. Colonic diverticulosis. No evidence of diverticulitis Cholelithiasis Degenerative changes of both hips. Abnormal soft tissue surrounding of hips is probably related to history of chronic immobility Degenerative spondylosis and scoliotic deformity Incidental findings as noted, including large duodenal diverticulum, atrophic pancreas, pacemaker Findings discussed by phone with Dr. Guerra at the time of interpretation The CT scanner at [facility] is accredited by the [employer] and the scans are performed using protocols designed to limit radiation exposure to as low as reasonably achievable to attain images of sufficient resolution adequate for diagnostic evaluation.
[2017-05-25 16:00] VITALS: BP 127/62
[2017-05-25 19:56] VITALS: BP 131/65
[2017-05-26] VITALS: BP 129/66
[2017-05-26 04:00] VITALS: BP 137/69
[2017-05-26 05:09] LABS: BASOPHILS % (AUTO) 0.6 % (0.0-2.0); EOSINOPHILS % (AUTO) 0.5 % (0.0-3.0); LYMPHOCYTES % (AUTO) 19.3 % (20.0-45.0); MEAN CORPUSCULAR HEMOGLOBIN 28.1 PG (27.0-31.0); MEAN CORPUSCULAR HGB CONC 31.2 G/DL (32.0-36.0); MEAN CORPUSCULAR VOLUME 90 FL (80-99); MEAN PLATELET VOLUME 4.8 FL (6.5-10.1); MONOCYTES % (AUTO) 6.2 % (1.0-10.0); NEUTROPHILS % (AUTO) 73.4 % (45.0-75.0); PLATELET COUNT 425 K/UL (150-450); RED BLOOD COUNT 3.32 M/UL (4.70-6.10); RED CELL DISTRIBUTION WIDTH 17.1 % (11.6-14.8); WHITE BLOOD COUNT 9.3 K/UL (4.8-10.8)
[2017-05-26 05:36] LABS: ALANINE AMINOTRANSFERASE 5 U/L (3-41); ALBUMIN/GLOBULIN RATIO 0.4 (1.0-2.7); ANION GAP 13 (5-15); ASPARTATE AMINO TRANSFERASE 11 U/L (5-40); CALCIUM 8.4 mg/dL (8.6-10.2); CARBON DIOXIDE 21 mEQ/L (20-30); CHLORIDE 107 mEQ/L (98-107); HEMOLYSIS 2; MAGNESIUM 1.7 mg/dL (1.7-2.5); POTASSIUM 3.8 mEQ/L (3.4-4.9); SODIUM 141 mEQ/L (135-145); TOTAL PROTEIN 6.9 g/dL (6.6-8.7)
[2017-05-26 06:12] LABS: CREATININE 0.8 mg/dL (0.7-1.2)
--- NOTE | 2017-05-26 07:16 | Progress Note ---
DATE: 05/25/2017 CARDIOLOGY PROGRESS NOTE Subjective: The patient is scheduled for endoscopy and G-tube replacement today. He is in no respiratory distress. Monitored rhythm sinus. OBJECTIVE: LUNGS: Good breath sounds. Few rhonchi. Heart: Regular rhythm and rate. Normal S1 and S2 with a fourth heart sound. ABDOMEN: Soft. G-tube site with dressing. EXTREMITIES: With trace dependent edema and contractures. LABORATORY DATA: No new laboratory studies. IMPRESSION: 1. Dysphagia with G-tube. 2. Respiratory failure with tracheostomy. 3. Paroxysmal atrial fibrillation. 4. Chronic diastolic congestive heart failure. 5. Permanent pacemaker. 6. 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 7. History of chronic obstructive pulmonary disease. PLAN: 1. Conservative management. 2. Stable for G-tube replacement with minimally increased risk. 3. Monitor cardiorenal parameters and volume status. 4. Recheck laboratory studies. 5. Transfuse as needed. 6. Trend natriuretic peptide assay and diurese concomitantly based on clinical parameters. Stanislav Jain M.D. DR: CAREY JOB#: [id number] CC:
--- NOTE | 2017-05-26 07:30 | Progress Note ---
DATE: 05/24/2017 CARDIOLOGY PROGRESS NOTE LATE ENTRY Subjective: The patient was seen and evaluated. We discussed case with primary care. Family members are considering hospice level of support. OBJECTIVE: Vital Signs: Blood pressure 136/87, pulse 97, and respirations 22. Monitored sinus. LUNGS: Bilateral breath sounds. Scattered rhonchi. HEART: Regular rhythm and rate. Normal S1 and S2. ABDOMEN: Soft. Contractures and trace edema. IMPRESSION: 1. Paroxysmal atrial fibrillation. 2. Permanent pacemaker. 3. Chronic diastolic congestive heart failure. 4. Respiratory failure with tracheostomy. 5. Chronic anemia. 6. Dysphagia with gastrostomy tube. 7. Recurring sepsis. 8. Diabetes mellitus with complications. 9. 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 PLAN: 1. Hospice appropriate. 2. G-tube replacement for improved utilization and nutritional administration. 3. Monitor volume status and cardiorenal parameters. 4. Reassess for periodic diuresis. 5. No additional cardiovascular therapy presently planned. Stanislav Jain M.D. DR: Pauline JOB#: [id number] CC:
[2017-05-26 08:22] VITALS: BP 143/67
--- NOTE | 2017-05-26 08:47 | Pulmonology Progress Note ---
Assessment/Plan Assessment/Plan IMPRESSION 1. anemia, possibly chronic disease 2. Chronic respiratory failure, status post tracheostomy. 3. Chronic diastolic congestive heart failure. 4. Paroxysmal atrial fibrillation 5. Permanent pacemaker. 6. Multidrug resistant Klebsiella and Acinetobacter pneumonia. per history 7. Fungal urinary tract infection. per history 8. Chronic encephalopathy. 9. Multiple pressure ulcers 10. Diabetes mellitus. 11. Bed bound 12. Chronic renal failure. 13. G-tube. PLAN hospice care ? no GT planned ventilator support ? dc- awaiting further decisions withdraw care per family decision impression, plan, and exam edited and reviewed in detail care discussed with RN Subjective Allergies: Coded Allergies: No Known Allergies (Unverified , 01/07/17) Subjective comfort care only d/w nursing noted and reviewed no other acute changes noted Objective Last 24 Hour Vital Signs Date Time Temp Pulse Resp B/P (MAP) Pulse Ox O2 Delivery O2 Flow Rate FiO2 05/26/17 08:41 82 22 30 05/26/17 08:22 98.1 74 20 143/67 100 Mechanical Ventilator 35 05/26/17 07:18 76 21 30 05/26/17 04:43 77 21 30 05/26/17 04:00 98.2 78 21 137/69 99 Mechanical Ventilator 35 05/26/17 04:00 35 05/26/17 04:00 78 05/26/17 03:30 75 16 30 05/26/17 01:16 74 18 30 05/26/17 00:00 98.4 72 19 129/66 100 Mechanical Ventilator 35 05/26/17 00:00 72 05/25/17 23:30 70 18 30 05/25/17 21:11 80 16 30 05/25/17 20:20 78 131/65 05/25/17 20:00 35 05/25/17 20:00 84 05/25/17 19:56 98.8 78 20 131/65 99 Mechanical Ventilator 35 05/25/17 19:30 80 18 30 05/25/17 17:04 75 18 30 05/25/17 16:00 98.8 81 20 127/62 100 Mechanical Ventilator 35 05/25/17 16:00 35 05/25/17 15:46 81 05/25/17 14:50 90 20 30 05/25/17 12:40 85 17 30 05/25/17 12:03 82 05/25/17 12:00 98.0 100 20 108/65 98 Mechanical Ventilator 35 05/25/17 12:00 35 05/25/17 10:30 80 18 30 05/25/17 10:01 84 16 100 05/25/17 09:45 84 16 100 Intake and Output 05/26/17 05/27/17 19:00 07:00 Intake Total 25 ml Balance 25 ml Tube Feeding 25 ml Objective WDWN NAD chronically ill trach coarse breath sounds bilaterally without rhonchi or wheeze [id number] without MRG NABS nontender no HSM; GT out no CC mild edema contractures nonfocal Laboratory Tests 05/26/17 04:15: White Blood Count 9.3, Red Blood Count 3.32L, Hemoglobin 9.3L, Hematocrit 29.9L , Mean Corpuscular Volume 90, Mean Corpuscular Hemoglobin 28.1, Mean Corpuscular Hemoglobin Concent 31.2L, Red Cell Distribution Width 17.1H, Platelet Count 425, Mean Platelet Volume 4.8L, Neutrophils (%) (Auto) 73.4, Lymphocytes (%) (Auto) 19.3L, Monocytes (%) (Auto) 6.2, Eosinophils (%) (Auto) 0.5, Basophils (%) (Auto) 0.6, Sodium Level 141, Potassium Level 3.8, Chloride Level 107, Carbon Dioxide Level 21, Anion Gap 13, Blood Urea Nitrogen 12, Creatinine 0.8, Estimat Glomerular Filtration Rate , Glucose Level 140H, Calcium Level 8.4L, Magnesium Level 1.7, Total Bilirubin 0.5, Aspartate Amino Transf (AST/SGOT) 11, Alanine Aminotransferase (ALT/SGPT) 5, Alkaline Phosphatase 72, Pro-B-Type Natriuretic Peptide 39808T, Total Protein 6.9, Albumin 2.2L, Globulin 4.7, Albumin/Globulin Ratio 0.4L Current Medications Medications (Trade) Dose Ordered Sig/Subhash Route PRN Reason Start Time Stop Time Status Last Admin Dose Admin Acetaminophen (Tylenol) 650 mg Q4H PRN ORAL Mild Pain/Temp > 100.5 05/22/17 13:15 06/21/17 13:14 Atorvastatin Calcium (Lipitor) 10 mg BEDTIME GT 05/22/17 21:00 06/21/17 20:59 05/25/17 20:20 Bisacodyl (Dulcolax) 10 mg DAILYPRN PRN RECTAL Constipation 05/22/17 13:00 06/21/17 12:59 Carvedilol (Coreg) 3.125 mg EVERY 12 HOURS GT 05/22/17 21:00 06/21/17 20:59 05/25/17 20:20 Dextrose/Sodium Chloride 1,000 ml @ 70 mls/hr [id number] IV 05/23/17 12:45 06/22/17 12:44 05/25/17 21:31 Docusate Sodium (Colace) 100 mg DAILY GT 05/23/17 09:00 06/22/17 08:59 Ferrous Sulfate (Feosol) 300 mg DAILY GT 05/23/17 09:00 06/22/17 08:59 Finasteride (Proscar) 5 mg DAILY ORAL 05/23/17 09:00 06/22/17 08:59 Heparin Sodium (Porcine) (Heparin 5000 units/ml) 5,000 units EVERY 12 HOURS SUBQ 05/22/17 21:00 06/21/17 20:59 05/25/17 20:21 Lansoprazole (Prevacid) 30 mg DAILY GT 05/23/17 09:00 06/22/17 08:59 Magnesium Hydroxide (Mom) 30 ml DAILYPRN PRN GT CONSTIPATION 2ND LINE AGENT 05/22/17 13:15 06/21/17 13:14 Sitagliptin Phosphate (Januvia) 50 mg DAILY GT 05/23/17 09:00 06/22/17 08:59 Sodium Phosphate (Fleet's Sodium Phosl Enema) 133 ml DAILYPRN PRN RECTAL Constipation Last Line Agent 05/22/17 13:15 06/21/17 13:14 Tamsulosin HCl (Flomax) 0.4 mg DAILY ORAL 05/23/17 09:00 06/22/17 08:59 Zolpidem Tartrate (Ambien) 5 mg HSPRN PRN GT Insomnia 05/22/17 13:15 05/29/17 13:14 REJI OJEDA May 26, 2017 08:47
[2017-05-26] MEDS: Tamsulosin 0.4mg cap ORAL SCH (09:35)
[2017-05-26] MEDS: sitaGLIPtin 25mg tab GT SCH (09:35)
[2017-05-26] MEDS: Ferrous Sulfate 300 MG/5 ML UDC GT SCH (09:35)
[2017-05-26] MEDS: Docusate 100mg/10ml Liq GT SCH (09:35)
[2017-05-26] MEDS: Heparin 5000 units/ml inj SUBQ SCH (09:38)
[2017-05-26] MEDS: D5NS 1,000 ML IV SCH (11:45)
[2017-05-26 12:13] VITALS: BP 130/59
[2017-05-26] MEDS ORDERED: D5NS 1000ml IV ONE ×2 (14:14→15:17)
[2017-05-26] MEDS ORDERED: Tubing IV Secondary IV ONE (15:17)
--- NOTE | 2017-05-26 20:19 | General Progress Note ---
Assessment/Plan Assessment/Plan Assessment - Anemia, recent negative GI w/u - GT complication - GT removed - dysphagia - resp failure Recommendations - d/c planning - Monitor CBC - Old GT site care - New GT care Subjective Allergies: Coded Allergies: No Known Allergies (Unverified , 01/07/17) Subjective above noted POD #! s/p PEG TF started Objective Last 24 Hour Vital Signs Date Time Temp Pulse Resp B/P (MAP) Pulse Ox O2 Delivery O2 Flow Rate FiO2 05/26/17 13:05 77 20 30 05/26/17 12:13 98.3 99 23 130/59 99 Mechanical Ventilator 35 05/26/17 12:00 75 05/26/17 12:00 35 05/26/17 11:06 79 17 30 05/26/17 09:35 82 143/67 05/26/17 08:41 82 22 30 05/26/17 08:22 98.1 74 20 143/67 100 Mechanical Ventilator 35 05/26/17 08:00 35 05/26/17 08:00 73 05/26/17 07:18 76 21 30 05/26/17 04:43 77 21 30 05/26/17 04:00 98.2 78 21 137/69 99 Mechanical Ventilator 35 05/26/17 04:00 35 05/26/17 04:00 78 05/26/17 03:30 75 16 30 05/26/17 01:16 74 18 30 05/26/17 00:00 98.4 72 19 129/66 100 Mechanical Ventilator 35 05/26/17 00:00 72 05/25/17 23:30 70 18 30 05/25/17 21:11 80 16 30 05/25/17 20:20 78 131/65 Intake and Output 05/26/17 05/27/17 19:00 07:00 Intake Total 765 ml Output Total 400 ml Balance 365 ml Intake Free Water 50 ml IV Total 490 ml Tube Feeding 175 ml Other 50 ml Output Urine Total 400 ml # Bowel Movements 2 Laboratory Tests 05/26/17 04:15: White Blood Count 9.3, Red Blood Count 3.32L, Hemoglobin 9.3L, Hematocrit 29.9L , Mean Corpuscular Volume 90, Mean Corpuscular Hemoglobin 28.1, Mean Corpuscular Hemoglobin Concent 31.2L, Red Cell Distribution Width 17.1H, Platelet Count 425, Mean Platelet Volume 4.8L, Neutrophils (%) (Auto) 73.4, Lymphocytes (%) (Auto) 19.3L, Monocytes (%) (Auto) 6.2, Eosinophils (%) (Auto) 0.5, Basophils (%) (Auto) 0.6, Sodium Level 141, Potassium Level 3.8, Chloride Level 107, Carbon Dioxide Level 21, Anion Gap 13, Blood Urea Nitrogen 12, Creatinine 0.8, Estimat Glomerular Filtration Rate , Glucose Level 140H, Calcium Level 8.4L, Magnesium Level 1.7, Total Bilirubin 0.5, Aspartate Amino Transf (AST/SGOT) 11, Alanine Aminotransferase (ALT/SGPT) 5, Alkaline Phosphatase 72, Pro-B-Type Natriuretic Peptide [id number], Total Protein 6.9, Albumin 2.2L, Globulin 4.7, Albumin/Globulin Ratio 0.4L Height (Feet): 5 Height (Inches): 7.00 Weight (Pounds): 156 Objective Thin man NCAT supple CTA RR soft ND NT, GT site closed, (+) new GT no edema HITESH BURNS May 26, 2017 20:19
--- NOTE | 2017-05-27 06:00 | Discharge Summary ---
DATE OF ADMISSION: 05/22/2017 DATE OF DISCHARGE: 05/26/2017 ADMISSION DIAGNOSES: 1. Anemia. 2. Possible gastrointestinal bleed. 3. Chronic respiratory failure. 4. Conduction system disease, status post pacemaker. 5. Hypertension. DISCHARGE DIAGNOSES: 1. Anemia. 2. Possible gastrointestinal bleed. 3. Chronic respiratory failure. 4. Conduction system disease, status post pacemaker. 5. Hypertension. Hospital Course: The patient is a very pleasant male admitted with complaints of anemia. He was transfused three units of packed red blood cells. There was a problem with G-tube and had that removed. It was later replaced by the GI doctor. Family were considering possibly placing the patient on on hospice on discharge, though, they were still unsure. The patient will be discharged back to nursing home facility. Discharge Medications: Please see discharge medication list for discharge medications. DIET: G-tube feeds. ACTIVITY: Ad-toña. Followup: The patient will follow up in one to two days at nursing home facility. Rajeev Carlos M.D. DR: Valerio JOB#: [id number] CC:
== END 2017-05-26 14:15 | DRG 393 ==
LOC: EDBD 09:51 → EDBEDREQ 10:20 → EMR 10:41 → EDBEDREQ 10:43 → 2W 10:45
PROC: 30233N1 Transfusion of Nonautologous Red Blood Cells into Peripheral Vein, Percutaneous Approach (ICD-10-PCS; principal; 2017-05-22)
PROC: 5A1955Z Respiratory Ventilation, Greater than 96 Consecutive Hours (ICD-10-PCS; principal; 2017-05-22)
PROC: 0DH63UZ Insertion of Feeding Device into Stomach, Percutaneous Approach (ICD-10-PCS; 2017-05-25 10:00)
DX: K94.23 Gastrostomy malfunction (principal); G93.49 Other encephalopathy; L89.152 Pressure ulcer of sacral region, stage 2; E46 Unspecified protein-calorie malnutrition; J96.10 Chronic respiratory failure, unspecified whether with hypoxia or hypercapnia; J44.9 Chronic obstructive pulmonary disease, unspecified; I13.0 Hypertensive heart and chronic kidney disease with heart failure and stage 1 through stage 4 chronic kidney disease, or unspecified chronic kidney disease; I50.32 Chronic diastolic (congestive) heart failure; F03.90 Unspecified dementia, unspecified severity, without behavioral disturbance, psychotic disturbance, mood disturbance, and anxiety; K92.2 Gastrointestinal hemorrhage, unspecified; Y83.3 Surgical operation with formation of external stoma as the cause of abnormal reaction of the patient, or of later complication, without mention of misadventure at the time of the procedure; R13.10 Dysphagia, unspecified; I48.0 Paroxysmal atrial fibrillation; E11.22 Type 2 diabetes mellitus with diabetic chronic kidney disease; N18.9 Chronic kidney disease, unspecified; D63.1 Anemia in chronic kidney disease; Z95.0 Presence of cardiac pacemaker; Z66 Do not resuscitate; N40.0 Benign prostatic hyperplasia without lower urinary tract symptoms; I25.10 Atherosclerotic heart disease of native coronary artery without angina pectoris; Z86.73 Personal history of transient ischemic attack (TIA), and cerebral infarction without residual deficits; Z79.4 Long term (current) use of insulin; L89.620 Pressure ulcer of left heel, unstageable; L89.610 Pressure ulcer of right heel, unstageable; E11.40 Type 2 diabetes mellitus with diabetic neuropathy, unspecified; L89.312 Pressure ulcer of right buttock, stage 2; L89.890 Pressure ulcer of other site, unstageable; L89.220 Pressure ulcer of left hip, unstageable; L89.520 Pressure ulcer of left ankle, unstageable; Z43.0 Encounter for attention to tracheostomy
CPT/HCPCS: 36415; 71010; 74177; 80053; 81003; 82550; 82553; 82962; 83605; 83735; 83880; 84484; 85025; 85610; 85730; 86850; 86900; 86901; 86920; 87040; 87086; 87181; 93005; 94002; 94003; 94150; 99285

== ENCOUNTER 2017-06-15 02:56 | Inpatient (IN) | payer MEDICARE, OTHER ==
[~2017-06-15] VITALS: Ht 170.2 cm; Wt 79.4 kg
[~2017-06-15 02:56] MED LIST changes: +DULCOLAX10 MG RC; +EPOGEN10000 UNIT SUBQ; +FLEET ENEMA133 M1 RC; +HEPARIN SO5000 UNIT2 SUBQ; +LANSOPRAZOLE30 MG GT; +METOPROLOL SUCC50 MG GT; +MILK OF MA400 MG/51 GT; +MULTIVITAMINS1 EAC8 GT; +PROMOD GT; +SODIUM CHLORIDE GT; +mylanta GT
[2017-06-15 03:13] VITALS: BP 99/48
--- NOTE | 2017-06-15 03:31 | Emergency Room Report ---
History of Present Illness General Chief Complaint: Abdominal Pain Source: Medical Record, EMS Present Illness HPI 82-year-old male history of CVA, paroxysmal A. fib, pacemaker, hypertension, diabetes, anemia, bedbound nonverbal, PEG tube, trached to vent, is DNR/DNI, sent from [facility] for nausea or vomiting since yesterday. Patient nonverbal unable to obtain any history, Allergies: Coded Allergies: No Known Allergies (Unverified , 01/07/17) Patient History Past Medical History: see triage record Past Surgical History: unable to obtain Pertinent Family History: unable to obtain Reviewed Nursing Documentation: PMH: Agreed, PSxH: Agreed Nursing Documentation-PMH Hx Cardiac Problems: Yes - unspecified A-fib Hx Hypertension: Yes Hx Pacemaker: Yes Hx COPD: Yes - Chronic resp failure, vent dependent Hx Diabetes: Yes Hx Cancer: No Hx Gastrointestinal Problems: Yes - GT Hx Neurological Problems: Yes Hx Dementia: Yes Hx Peripheral Neuropathy: Yes Hx Memory Loss: Yes Hx Concentration Difficulty: Yes Hx Speech Problem: Yes Hx Dysphasia: Yes Hx Weakness: Yes Review of Systems All Other Systems: limited - nonverbal Physical Exam Vital Signs Date Time Temp Pulse Resp B/P (MAP) Pulse Ox O2 Delivery O2 Flow Rate FiO2 06/15/17 03:07 99.3 80 17 99/48 100 Mechanical Ventilator 44 Sp02 EP Interpretation: reviewed, abnormal - hypoxic on RA, trached to vent General Appearance: other - Contracted chronically ill-appearing male, appears to be in distress Head: normocephalic, atraumatic Eyes: bilateral eye normal inspection, bilateral eye PERRL, bilateral eye EOMI ENT: dry mucus membranes, other - trached Neck: supple, other - contracted Respiratory: other - trached to vent, clear breath sounds b/l, chest symmetrical Cardiovascular #1: normal inspection, regular rate, rhythm, no edema, normal capillary refill Cardiovascular #2: 2+ radial (R), 2+ radial (L) Gastrointestinal: other - peg tube, abdomen soft, ND, no grimace to deep palpation Musculoskeletal: other - contracted ext Neurologic: other - nonverbal/not ff commands Psychiatric: other - nonverbal Skin: normal inspection, normal color, no rash, warm/dry, normal turgor Procedures Critical Care Time Critical Care Time 40 minutes of CC time 82-year-old male, dehydration, nausea vomiting Sepsis criteria met Trached to vent, borderline hypotensive PLAN: IV access, labs, lactate, Blood/Urine Cx, Abx Anticipate admission to [facility] CC time also includes review of labs, review of EMR, paperwork from SNF, d/w hospitalist CC could include dosing of pressors, additional Abx CC time does not include procedures Medical Decision Making Diagnostic Impression: Primary Impression: Severe sepsis Additional Impressions: Respiratory failure Dehydration ER Course Laboratory Tests Test 06/15/17 03:25 06/15/17 04:04 White Blood Count 15.3 K/UL (4.8-10.8) H Red Blood Count 2.98 M/UL (4.70-6.10) L Hemoglobin 8.3 G/DL (14.2-18.0) L Hematocrit 25.8 % (42.0-52.0) L Mean Corpuscular Volume 87 FL (80-99) Mean Corpuscular Hemoglobin 27.9 PG (27.0-31.0) Mean Corpuscular Hemoglobin Concent 32.2 G/DL (32.0-36.0) Red Cell Distribution Width 17.5 % (11.6-14.8) H Platelet Count 460 K/UL (150-450) H Mean Platelet Volume 5.0 FL (6.5-10.1) L Neutrophils (%) (Auto) 77.6 % (45.0-75.0) H Lymphocytes (%) (Auto) 13.5 % (20.0-45.0) L Monocytes (%) (Auto) 8.3 % (1.0-10.0) Eosinophils (%) (Auto) 0.2 % (0.0-3.0) Basophils (%) (Auto) 0.4 % (0.0-2.0) Sodium Level 128 MMOL/L (136-145) L Potassium Level 4.7 MMOL/L (3.5-5.1) Chloride Level 94 MMOL/L (98-107) L Carbon Dioxide Level 25 MMOL/L (21-32) Anion Gap 9 (5-15) Blood Urea Nitrogen 82 mg/dL (7-18) H Creatinine 1.4 MG/DL (0.55-1.00) H Estimate Glomerular Filtration Rate mL/min (>60) Glucose Level 214 MG/DL (74-106) H Lactic Acid Level 2.70 mmol/L (0.66-2.22) H Calcium Level 7.7 MG/DL (8.5-10.1) L Total Bilirubin 0.6 MG/DL (0.2-1.0) Aspartate Amino Transferase (AST) 14 U/L (15-37) L Alanine Aminotransferase (ALT) 10 U/L (12-78) L Alkaline Phosphatase 143 U/L (46-116) H Total Creatine Kinase 54 U/L (26-308) Creatine Kinase MB 0.8 NG/ML (0.0-3.6) Creatine Kinase MB Relative Index 1.4 Troponin I 0.010 ng/mL (0.000-0.056) Total Protein 6.4 G/DL (6.4-8.2) Albumin 1.1 G/DL (3.4-5.0) L Globulin 5.3 g/dL Albumin/Globulin Ratio 0.2 (1.0-2.7) L Urine Color Yellow Urine Appearance Cloudy Urine pH 5 (4.5-8.0) Urine Specific [employer] 1.015 (1.005-1.035) Urine Protein 2+ (NEGATIVE) H Urine Glucose (UA) Negative (NEGATIVE) Urine Ketones Negative (NEGATIVE) Urine Occult Blood 4+ (NEGATIVE) H Urine Nitrite Negative (NEGATIVE) Urine Bilirubin Negative (NEGATIVE) Urine Urobilinogen 1 MG/DL (0.0-1.0) H Urine Leukocyte Esterase 3+ (NEGATIVE) H Urine RBC 15-20 /HPF (0 - 0) H Urine WBC Tntc /HPF (0 - 0) H Urine Squamous Epithelial Cells Few /LPF (NONE/OCC) Urine Bacteria Many /HPF (NONE) H 82-year-old male, bedbound, trach, pink, DNR/DNI, presenting with nausea vomiting DDX: Dehydration/electrolyte abnormalities Gastroenteritis, cardiac, UTI, pneumonia, at this time abdomen is very soft and nondistended, will hold CT for now Plan: Obtain labs, UA, EKG, CXR IV hydration ER course: Patient received IV fluids Broad spectrum ABX Continues to be on vent IV fluids 30cc/kg bolus given BP has improved with IVF with MAP > 65 Patient's family at bedside, patient for comfort measures only, DNR Disposition: Patient is to be admitted to [facility] D/W hospitalist Dr Guerra Please note that this Emergency Department Report was dictated using [employer] assistant technology software, occasionally this can lead to erroneous entry secondary to interpretation by the dictation equipment. Chest X-ray CXR: Ordered: Yes 1 view Indication: Shortness of breath EP interpretation: Yes Interpretation: Cardiomegaly, pacemaker noted in left chest, trach noted, no infiltrates or effusions Impression: Cardiomegaly otherwise no acute disease Electronically signed by Yaritza Omer MD Laboratory Tests Test 06/15/17 03:25 06/15/17 04:04 White Blood Count 15.3 K/UL (4.8-10.8) H Red Blood Count 2.98 M/UL (4.70-6.10) L Hemoglobin 8.3 G/DL (14.2-18.0) L Hematocrit 25.8 % (42.0-52.0) L Mean Corpuscular Volume 87 FL (80-99) Mean Corpuscular Hemoglobin 27.9 PG (27.0-31.0) Mean Corpuscular Hemoglobin Concent 32.2 G/DL (32.0-36.0) Red Cell Distribution Width 17.5 % (11.6-14.8) H Platelet Count 460 K/UL (150-450) H Mean Platelet Volume 5.0 FL (6.5-10.1) L Neutrophils (%) (Auto) 77.6 % (45.0-75.0) H Lymphocytes (%) (Auto) 13.5 % (20.0-45.0) L Monocytes (%) (Auto) 8.3 % (1.0-10.0) Eosinophils (%) (Auto) 0.2 % (0.0-3.0) Basophils (%) (Auto) 0.4 % (0.0-2.0) Sodium Level 128 MMOL/L (136-145) L Potassium Level 4.7 MMOL/L (3.5-5.1) Chloride Level 94 MMOL/L (98-107) L Carbon Dioxide Level 25 MMOL/L (21-32) Anion Gap 9 (5-15) Blood Urea Nitrogen 82 mg/dL (7-18) H Creatinine 1.4 MG/DL (0.55-1.00) H Estimate Glomerular Filtration Rate mL/min (>60) Glucose Level 214 MG/DL (74-106) H Lactic Acid Level 2.70 mmol/L (0.66-2.22) H Calcium Level 7.7 MG/DL (8.5-10.1) L Total Bilirubin 0.6 MG/DL (0.2-1.0) Aspartate Amino Transferase (AST) 14 U/L (15-37) L Alanine Aminotransferase (ALT) 10 U/L (12-78) L Alkaline Phosphatase 143 U/L (46-116) H Total Creatine Kinase 54 U/L (26-308) Creatine Kinase MB 0.8 NG/ML (0.0-3.6) Creatine Kinase MB Relative Index 1.4 Troponin I 0.010 ng/mL (0.000-0.056) Total Protein 6.4 G/DL (6.4-8.2) Albumin 1.1 G/DL (3.4-5.0) L Globulin 5.3 g/dL Albumin/Globulin Ratio 0.2 (1.0-2.7) L Urine Color Yellow Urine Appearance Cloudy Urine pH 5 (4.5-8.0) Urine Specific [employer] 1.015 (1.005-1.035) Urine Protein 2+ (NEGATIVE) H Urine Glucose (UA) Negative (NEGATIVE) Urine Ketones Negative (NEGATIVE) Urine Occult Blood 4+ (NEGATIVE) H Urine Nitrite Negative (NEGATIVE) Urine Bilirubin Negative (NEGATIVE) Urine Urobilinogen 1 MG/DL (0.0-1.0) H Urine Leukocyte Esterase 3+ (NEGATIVE) H Urine RBC 15-20 /HPF (0 - 0) H Urine WBC Tntc /HPF (0 - 0) H Urine Squamous Epithelial Cells Few /LPF (NONE/OCC) Urine Bacteria Many /HPF (NONE) H EKG Diagnostic Results Rate: normal Rhythm: NSR ST Segments: other - TWI inf leads and V5 V6 Rhythm Strip Diag. Results EP Interpretation: yes Rate: 81 Rhythm: NSR, no PVC's, no ectopy Last Vital Signs Date Time Temp Pulse Resp B/P (MAP) Pulse Ox O2 Delivery O2 Flow Rate FiO2 06/15/17 03:15 44 06/15/17 03:13 99.3 80 17 99/48 100 Mechanical Ventilator Disposition: ADMITTED INPATIENT Condition: Serious Yaritza Omer M.D. Jun 15, 2017 03:31
[2017-06-15 03:54] LABS: BASOPHILS % (AUTO) 0.4 % (0.0-2.0); EOSINOPHILS % (AUTO) 0.2 % (0.0-3.0); LYMPHOCYTES % (AUTO) 13.5 % (20.0-45.0); MEAN CORPUSCULAR HEMOGLOBIN 27.9 PG (27.0-31.0); MEAN CORPUSCULAR HGB CONC 32.2 G/DL (32.0-36.0); MEAN CORPUSCULAR VOLUME 87 FL (80-99); MONOCYTES % (AUTO) 8.3 % (1.0-10.0); NEUTROPHILS % (AUTO) 77.6 % (45.0-75.0); PLATELET COUNT 460 K/UL (150-450); RED BLOOD COUNT 2.98 M/UL (4.70-6.10); RED CELL DISTRIBUTION WIDTH 17.5 % (11.6-14.8); WHITE BLOOD COUNT 15.3 K/UL (4.8-10.8)
[2017-06-15 04:11] LABS: REFLEX LACTIC ACID YES OR NO YES
[2017-06-15 04:13] LABS: ALANINE AMINOTRANSFERASE 10 U/L (12-78); ALBUMIN/GLOBULIN RATIO 0.2 (1.0-2.7); ANION GAP 9 (5-15); ASPARTATE AMINO TRANSFERASE 14 U/L (15-37); CALCIUM 7.7 MG/DL (8.5-10.1); CARBON DIOXIDE 25 MMOL/L (21-32); CHLORIDE 94 MMOL/L (98-107); CKMB 0.8 NG/ML (0.0-3.6); CREATININE 1.4 MG/DL (0.55-1.00); POTASSIUM 4.7 MMOL/L (3.5-5.1); SODIUM 128 MMOL/L (136-145); TOTAL PROTEIN 6.4 G/DL (6.4-8.2)
[2017-06-15] MEDS ORDERED: Piperacillin/Tazobactam 3.375 GM in NS 110 ML IVPB ONE (04:15)
[2017-06-15] MEDS ORDERED: Vancomycin 1.5gm/D5W 250ml 250 ML IVPB ONE (04:15)
[2017-06-15] MEDS ORDERED: Zosyn 3.375gm inj ONE (04:15)
[2017-06-15 04:25] LABS: APPEARANCE,URINE CLOUDY; KETONES,URINE NEGATIVE (NEGATIVE); LEUKOCYTE ESTERASE ,URINE 3+ (NEGATIVE); NITRITE,URINE NEGATIVE (NEGATIVE); PH,URINE 5 (4.5-8.0); PROTEIN,URINE 2+ (NEGATIVE); UROBILINOGEN,URINE 1 MG/DL (0.0-1.0)
[2017-06-15 04:47] LABS: BACTERIA,URINE MANY /HPF; RBC,URINE 15-20 /HPF (0 - 0); SQUAMOUS EPITHELIAL CELL,UR FEW /LPF (NONE/OCC); WBC,URINE TNTC /HPF (0 - 0)
[2017-06-15 07:18] VITALS: BP 114/58
[2017-06-15 07:31] LABS: REFLEX LACTIC ACID YES OR NO YES
[2017-06-15] MEDS ORDERED: Fleet's Enema 133ml RECTAL PRN (08:15)
[2017-06-15] MEDS ORDERED: Milk of Magnesia 30ml Ud GT PRN (08:15)
[2017-06-15] MEDS: Heparin 5000 units/ml inj SUBQ SCH ×2 (09:00→21:00)
[2017-06-15] MEDS: Docusate 100mg/10ml Liq GT SCH (09:00)
--- NOTE | 2017-06-15 10:02 | Diagnostic Imaging Report ---
Indication: Chest pain Comparison: 05/22/17 A single view chest radiograph was obtained. Findings: Interstitial edema demonstrated with prominent heart size. Tracheostomy, osteoporosis and pacemaker are again noted. Impression: Interstitial edema
[2017-06-15] MEDS: Multivitamin w/Minerals tab ORAL SCH (10:08)
[2017-06-15] MEDS: D5NS 1,000 ML IV SCH ×2 (10:08→18:35)
[2017-06-15] MEDS: Metoprolol Tartrate 50mg tab GT SCH ×2 (10:09→21:00)
[2017-06-15] MEDS: Ferrous Sulfate 300 MG/5 ML UDC GT SCH (10:09)
[2017-06-15] MEDS: metroNIDAZOLE 500mg tab ORAL SCH ×2 (11:48→21:27)
[2017-06-15 12:00] VITALS: BP 137/72
[2017-06-15] MEDS: Piperacillin/Tazobactam 3.375 GM in D5W 110 ML IVPB SCH ×2 (13:17→21:27)
[2017-06-15 16:00] VITALS: BP 104/54
--- NOTE | 2017-06-15 16:45 | History and Physical Report ---
DATE OF ADMISSION: 06/15/2017 CHIEF COMPLAINT: Sepsis, hyponatremia, dehydration, and UTI. HISTORY OF PRESENT ILLNESS: The patient is an unfortunate 82-year-old male. He has a history of encephalopathy; COPD; chronic respiratory failure; conduction system disease, status post pacemaker; and hypertension, who presented from a half-way facility with complaints of dehydration, fever, and sepsis. The patient on evaluation in the emergency room was noted to have a sodium of 128 and a BUN of 80. UA had too numerous to count WBCs. He has been started on IV hydration. He is now admitted for further evaluation and care. He was pancultured and antibiotics have already been instituted. The patient is unable to provide any history. PAST MEDICAL HISTORY: As above. PAST SURGICAL HISTORY: Trach and a G-tube. CURRENT MEDICATIONS: Reconciled and reviewed. ALLERGIES: None. FAMILY HISTORY: None. SOCIAL HISTORY: There is no known history of tobacco, ethanol, or drugs. REVIEW OF SYSTEMS: From the patient is unobtainable as he is nonverbal and confused. PHYSICAL EXAMINATION: VITAL SIGNS: Temperature 99.3 degrees, blood pressure is 99/48, pulse of 80, and respirations 17. GENERAL: The patient is a chronically ill-appearing male, in no apparent distress. NECK: Supple. Trach was midline without any discharge. HEART: Regular rate and rhythm. LUNGS: Clear anteriorly. ABDOMEN: Soft, nontender, and nondistended. EXTREMITIES: Without clubbing, cyanosis, or edema. LABORATORY DATA: Sodium was 128, BUN of 82, and creatinine was 1.4. Lactic acid was 2.7. LFTs were unremarkable. White count was 15,000 and hemoglobin was 8.3. Lactic acid was 2.7. UA showed too numerous to count WBCs. ASSESSMENT: This is an unfortunate male, admitted with complaints of sepsis, hyponatremia, dehydration, acute renal failure, and shock. PLAN: Admit to monitored bed, aggressive fluid resuscitation, and broad-spectrum IV antibiotics. Follow pending cultures. Monitor electrolytes. Continue vent support. Continue G-tube feeds. Rajeev Carlos M.D. DR: CRISTÓBAL JOB#: [id number] CC:
[2017-06-15 20:00] VITALS: BP 102/55
--- NOTE | 2017-06-15 21:33 | General Progress Note ---
Assessment/Plan Assessment/Plan Assessment - Dark NGT aspirate - possible GI bleed - Family decline endoscopy due tp patient poor health - C Diff colitis - Resp failure, s/p trach - dysphagia, s/p PEG - COPD Recommendations - monitor CBC - Rx C diff - Elevate HOB - PPI - no plans for EGD per family request Subjective Allergies: Coded Allergies: No Known Allergies (Unverified , 01/07/17) Objective Last 24 Hour Vital Signs Date Time Temp Pulse Resp B/P (MAP) Pulse Ox O2 Delivery O2 Flow Rate FiO2 06/15/17 21:13 78 18 44 06/15/17 20:00 98.1 77 19 102/55 100 Mechanical Ventilator 44 06/15/17 17:20 68 18 44 06/15/17 16:00 97.3 80 20 104/54 100 Mechanical Ventilator 44 06/15/17 16:00 44 06/15/17 16:00 73 06/15/17 14:42 64 23 44 06/15/17 13:05 79 18 44 06/15/17 12:00 44 06/15/17 12:00 84 06/15/17 12:00 97.5 86 18 137/72 100 Mechanical Ventilator 44 06/15/17 11:20 86 19 44 06/15/17 10:09 68 114/58 06/15/17 09:12 68 16 44 06/15/17 07:50 65 16 44 06/15/17 07:22 99.3 87 16 114/58 100 Mechanical Ventilator 44 06/15/17 07:18 99.3 87 16 114/58 100 Mechanical Ventilator 44 06/15/17 05:19 87 16 44 06/15/17 03:15 44 06/15/17 03:13 99.3 80 17 99/48 100 Mechanical Ventilator 44 06/15/17 03:10 87 16 44 06/15/17 03:10 87 16 Mechanical Ventilator 44 06/15/17 03:07 99.3 80 17 99/48 100 Mechanical Ventilator 44 Intake and Output 06/15/17 06/16/17 19:00 07:00 Intake Total 3410.0 ml 100 ml Output Total 1000 ml Balance 2410.0 ml 100 ml Intake IV Total 3410.0 ml 100 ml Output Urine Total 300 ml Stool Total 300 ml Other 400 ml # Bowel Movements 2 Laboratory Tests 06/15/17 03:25: White Blood Count 15.3H, Red Blood Count 2.98L, Hemoglobin 8.3L, Hematocrit 25.8L, Mean Corpuscular Volume 87, Mean Corpuscular Hemoglobin 27.9, Mean Corpuscular Hemoglobin Concent 32.2, Red Cell Distribution Width 17.5H, Platelet Count 460H, Mean Platelet Volume 5.0L, Neutrophils (%) (Auto) 77.6H, Lymphocytes (%) (Auto) 13.5L, Monocytes (%) (Auto) 8.3, Eosinophils (%) (Auto) 0.2, Basophils (%) (Auto) 0.4, Sodium Level 128L, Potassium Level 4.7, Chloride Level 94L, Carbon Dioxide Level 25, Anion Gap 9, Blood Urea Nitrogen 82H, Creatinine 1.4H, Estimat Glomerular Filtration Rate , Glucose Level 214H, Lactic Acid Level 2.70H, Calcium Level 7.7L, Total Bilirubin 0.6, Aspartate Amino Transf (AST/SGOT) 14L, Alanine Aminotransferase (ALT/SGPT) 10L, Alkaline Phosphatase 143H, Total Creatine Kinase 54, Creatine Kinase MB 0.8, Creatine Kinase MB Relative Index 1.4, Troponin I 0.010, Total Protein 6.4, Albumin 1.1L , Globulin 5.3, Albumin/Globulin Ratio 0.2L 06/15/17 04:04: Urine Color Yellow, Urine Appearance Cloudy, Urine pH 5, Urine Specific [place] 1.015, Urine Protein 2+H, Urine Glucose (UA) Negative, Urine Ketones Negative, Urine Occult Blood 4+H, Urine Nitrite Negative, Urine Bilirubin Negative, Urine Urobilinogen 1H, Urine Leukocyte Esterase 3+H, Urine RBC 15-20H, Urine WBC TntcH , Urine Squamous Epithelial Cells Few, Urine Bacteria ManyH 06/15/17 06:28: Lactic Acid Level 2.40H 06/15/17 09:30: Lactic Acid Level 2.40H Height (Feet): 5 Height (Inches): 7.00 Weight (Pounds): 175 [email or web address] Jun 15, 2017 21:33
[2017-06-16] VITALS: BP 94/47
[2017-06-16 04:00] VITALS: BP 101/52
[2017-06-16] MEDS: Piperacillin/Tazobactam 3.375 GM in D5W 110 ML IVPB SCH ×3 (05:10→21:52)
[2017-06-16] MEDS: D5NS 1,000 ML IV SCH ×2 (05:10→17:31)
[2017-06-16 06:20] LABS: MEAN CORPUSCULAR HEMOGLOBIN 27.7 PG (27.0-31.0); MEAN CORPUSCULAR HGB CONC 31.6 G/DL (32.0-36.0); MEAN CORPUSCULAR VOLUME 87 FL (80-99); MEAN PLATELET VOLUME 4.9 FL (6.5-10.1); PLATELET COUNT 450 K/UL (150-450); RED BLOOD COUNT 2.81 M/UL (4.70-6.10); RED CELL DISTRIBUTION WIDTH 17.9 % (11.6-14.8)
[2017-06-16] MEDS: metroNIDAZOLE 500mg tab ORAL SCH ×3 (06:22→21:52)
--- NOTE | 2017-06-16 06:30 | Consultation ---
DATE OF CONSULTATION: 06/15/2017 PULMONARY CONSULTATION REFERRING PHYSICIAN: Rajeev Carlos M.D. REASON FOR CONSULTATION: Respiratory failure. REASON FOR ADMISSION: Leukocytosis, possible sepsis, possible gastrointestinal bleed. HISTORY OF PRESENT ILLNESS: The patient is an 82-year-old male with history of multiple medical problems. The patient is Do Not Resuscitate who presents with persistent vomiting with some coffee-ground. The patient was transferred emergently to [facility] emergency room. The patient was admitted secondary to above. I was consulted to evaluate and recommend further and assist in ventilatory management. The patient was seen and evaluated. The patient was noted to have persistent worsening anemia. The patient has no significant distention of the abdomen. The patient also has leukocytosis with concern for underlying sepsis. The patient now admitted. The patient is ventilator dependent, did have a recent G tube placed, and the patient has been tolerating feeds. The events are fairly acute in nature and no prodrome was noted and the patient was fairly stable on prior evaluation. PAST MEDICAL HISTORY: Multiple comorbid conditions including CVA, paroxysmal atrial fibrillation, pacemaker, hypertension, diabetes, anemia, G-tube, tracheostomy, prior decubiti, contractures, and chronic encephalopathy. MEDICATIONS: Reviewed. ALLERGIES: Reviewed. SOCIAL HISTORY: The patient is nonsmoker and nondrinker. Essentially bedbound, ventilator dependent, fully dependent overall. REVIEW OF SYSTEMS: Unobtainable due to the patient's mental state. PHYSICAL EXAMINATION: GENERAL: Patient an ill appearing male, overall, chronically debilitated. VITAL SIGNS: Currently blood pressure 114/58, pulse 87, respiratory rate 16, saturation 100%, and temperature 99.3. HEENT: Overall negative. Pupils are sluggish. Tracheostomy midline. Carotid 2+. NECK: Supple. LUNGS: Coarse breath sounds. Moderate air entry. Scattered rhonchi. CARDIAC: Normal S1 and S2, slightly distant without murmurs, rubs or gallops. ABDOMEN: Soft, nontender, and nondistended. Positive bowel sounds. G-tube in place. EXTREMITIES: No cyanosis, clubbing, or significant contractures. NEUROLOGICALLY: Poor mental status. Overall nonverbal. LABORATORY AND DIAGNOSTIC DATA: All reviewed. White count 15.3, hemoglobin 8.3, hematocrit 25.8, and platelets are 460. Chemistries reviewed, sodium 128, blood sugar is 214, BUN 82, creatinine 1.4. Lactic acid 2.7. Albumin 1.1. IMPRESSION: 1. Acute on chronic renal failure. 2. Lactic acidemia. 3. Leukocytosis, possible sepsis. 4. Respiratory failure, chronic. 5. Possible gastrointestinal bleed. 6. Anemia, possibly due to chronic disease. 7. Chronic encephalopathy. 8. Chronic debility. 9. Multiple pressure ulcers. 10. Paroxysmal atrial fibrillation. 11. Chronic obstructive pulmonary disease. RECOMMENDATION: Resume medication. Avoid anticoagulation. GI and ID evaluation recommended. Empiric antibiotics. Empiric intravenous hydration. Followup renal function. Followup laboratories. Mandatory support and suction precautions. No plan to wean. Monitor x-ray. Monitor imaging. Monitor his food. At present, the patient does have evidence of pulmonary edema and does have known history of chronic renal failure. We would avoid any dialysis and monitor closely for changes. Jona Guerra M.D. DR: WALKER JOB#: [id number] CC:
--- NOTE | 2017-06-16 06:46 | Consultation ---
DATE OF CONSULTATION: NEPHROLOGY CONSULTATION CONSULTING PHYSICIAN: Rd Flores M.D. ATTENDING PHYSICIAN: Jona Guerra M.D. REASON FOR CONSULTATION: Elevated BUN and creatinine. HISTORY OF PRESENT ILLNESS: This is an 82-year-old male, who is well known to me from previous admissions to this hospital. This is an 82-year-old unfortunate male from [facility] with multiple medical problems. I am asked to see the patient for elevation of BUN and creatinine. PAST MEDICAL HISTORY: 1. Ventilator-dependent respiratory failure. 2. COPD. 3. Chronic kidney disease. 4. Status post pacemaker implantation. 5. Hypertensive cardiovascular disease. 6. Recurrent septicemia. 7. Anemia of chronic kidney disease. HOME MEDICATIONS: Tylenol p.r.n., atorvastatin, Dulcolax, sodium docusate, Epogen, oral iron, Proscar, subcutaneous heparin, Protonix, milk of magnesia, metoprolol, multivitamin, Fleet Enema p.r.n., Januvia, Flomax, zolpidem, , Mylanta p.r.n. ALLERGIES: No known drug allergies. SOCIAL HISTORY: Unable to obtain secondary to mental status. FAMILY HISTORY: Unable to obtain secondary to mental status. REVIEW OF SYSTEMS: Unable to obtain secondary to mental status. PHYSICAL EXAMINATION: GENERAL: This is an elderly male, who is on a ventilator. VITAL SIGNS: Blood pressure is 137/72, pulse 86, regular, respirations 18, and temperature 97.5 degrees axillary. HEENT: He has a tracheostomy. NECK: Supple. Trachea midline. There was no lymphadenopathy or thyromegaly. LUNGS: Clear to auscultation percussion. HEART: Regular rate and rhythm without rubs, murmurs, or gallops. ABDOMEN: Soft, nontender. He has a G-tube. Bowel sounds were active. EXTREMITIES: He has multiple contractures. NEUROLOGIC: He is obtunded. There were no gross focal findings. LABORATORY AND DIAGNOSTIC DATA: CBC shows a white count of 15,300, hematocrit 25.8, and platelet count 460. Serum chemistry: Sodium 128, BUN 82, creatinine 1.4. Urinalysis, yellow cloudy urine, urine protein 2+. There were 15 to 20 RBCs and too numerous to count white blood cells. I am told that the patient has positive C. difficile in his stool. ASSESSMENT: 1. Volume depletion. 2. Urosepsis. 3. Clostridium difficile colitis. 4. Hyponatremia. PLAN: 1. Rehydration with relatively hypotonic to hypertonic fluids. 2. IV antibiotics. 3. Treatment of C. difficile colitis. 4. Monitor the patient's electrolytes. Thank you, Dr. Carlos and Dr. Guerra for letting me to participate in the care of this patient. Rd Flores M.D. DR: Deirdre JOB#: [id number] CC:
[2017-06-16 06:59] LABS: ANION GAP 11 (5-15); CALCIUM 7.6 MG/DL (8.5-10.1); CARBON DIOXIDE 21 MMOL/L (21-32); CHLORIDE 104 MMOL/L (98-107); CREATININE 1.3 MG/DL (0.55-1.30); MAGNESIUM 2.4 MG/DL (1.8-2.4); PHOSPHORUS 3.3 MG/DL (2.5-4.9); POTASSIUM 4.1 MMOL/L (3.5-5.1); SODIUM 136 MMOL/L (136-145)
[2017-06-16 08:00] VITALS: BP 113/55
--- NOTE | 2017-06-16 08:07 | Cardiology Report ---
APPROVED REPORT EKG Measurement Heart [id number] Normal sinus rhythm T wave abnormality, consider inferior ischemia Abnormal ECG
--- NOTE | 2017-06-16 08:18 | Pulmonology Progress Note ---
Assessment/Plan Assessment/Plan IMPRESSION: 1. Acute on chronic renal failure. 2. Lactic acidemia. 3. Leukocytosis, possible sepsis. 4. Respiratory failure, chronic. 5. Possible gastrointestinal bleed. 6. Anemia, possibly due to chronic disease. 7. Chronic encephalopathy. 8. Chronic debility. 9. Multiple pressure ulcers. 10. Paroxysmal atrial fibrillation. 11. Chronic obstructive pulmonary disease. PLAN stabilize IV antibiotics ID followup GI followup transfusion today ventilator management SNF meds monitor for change suction with caution dc back to SNF when stable guarded impression, plan, and exam edited and reviewed in detail care discussed with RN Subjective ROS Limited/Unobtainable: Yes Allergies: Coded Allergies: No Known Allergies (Unverified , 01/07/17) Subjective care noted now more anemic reduced LOC ventilator reviewed Objective Last 24 Hour Vital Signs Date Time Temp Pulse Resp B/P (MAP) Pulse Ox O2 Delivery O2 Flow Rate FiO2 06/16/17 07:02 79 19 44 06/16/17 04:56 78 20 44 06/16/17 04:00 44 06/16/17 04:00 84 06/16/17 04:00 98.4 84 18 101/52 100 Mechanical Ventilator 44 06/16/17 03:30 73 18 44 06/16/17 01:15 66 18 44 06/16/17 00:00 44 06/16/17 00:00 98.4 82 18 94/47 100 Mechanical Ventilator 44 06/15/17 23:45 96 06/15/17 22:37 78 18 44 06/15/17 22:36 63 18 Mechanical Ventilator 44 06/15/17 21:13 78 18 44 06/15/17 20:00 98.1 77 19 102/55 100 Mechanical Ventilator 44 06/15/17 20:00 44 06/15/17 17:20 68 18 44 06/15/17 16:00 97.3 80 20 104/54 100 Mechanical Ventilator 44 06/15/17 16:00 44 06/15/17 16:00 73 06/15/17 14:42 64 23 44 06/15/17 13:05 79 18 44 06/15/17 12:00 44 06/15/17 12:00 84 06/15/17 12:00 97.5 86 18 137/72 100 Mechanical Ventilator 44 06/15/17 11:20 86 19 44 06/15/17 10:09 68 114/58 06/15/17 09:12 68 16 44 Objective GENERAL: Patient an ill appearing male, overall, chronically debilitated. HEENT: Overall negative. Pupils are sluggish. Tracheostomy midline. Carotid 2+. NECK: Supple. LUNGS: Coarse breath sounds. Moderate air entry. some rhonchi. CARDIAC: Normal S1 and S2, slightly distant without murmurs, rubs or gallops. ABDOMEN: Soft, nontender, and nondistended. Positive bowel sounds. G-tube in place. EXTREMITIES: No cyanosis, clubbing, or significant contractures. NEUROLOGICALLY: Poor mental status. Overall nonverbal. Microbiology Date/Time Source Procedure Growth Status 06/15/17 03:30 Blood Blood Culture - Preliminary NO GROWTH AFTER 24 HOURS Resulted 06/15/17 03:25 Blood Blood Culture - Preliminary NO GROWTH AFTER 24 HOURS Resulted 06/15/17 07:20 Stool Clostridium difficile Toxin Assay - Final Complete 06/15/17 04:04 Urine,Clean Catch Urine Culture - Preliminary Gram Negative Bacillus 1 Resulted Laboratory Tests 06/15/17 09:30: Lactic Acid Level 2.40H 06/16/17 03:45: White Blood Count 13.0H, Red Blood Count 2.81L, Hemoglobin 7.8L, Hematocrit 24.6L, Mean Corpuscular Volume 87, Mean Corpuscular Hemoglobin 27.7, Mean Corpuscular Hemoglobin Concent 31.6L, Red Cell Distribution Width 17.9H, Platelet Count 450, Mean Platelet Volume 4.9L, Neutrophils (%) (Auto) , Lymphocytes (%) (Auto) , Monocytes (%) (Auto) , Eosinophils (%) (Auto) , Basophils (%) (Auto) , Neutrophils % (Manual) [Pending], Lymphocytes % (Manual) [Pending], Platelet Estimate [Pending], Platelet Morphology [Pending], Sodium Level 136, Potassium Level 4.1, Chloride Level 104, Carbon Dioxide Level 21, Anion Gap 11, Blood Urea Nitrogen 73H, Creatinine 1.3, Estimat Glomerular Filtration Rate , Glucose Level 181H, Calcium Level 7.6L, Phosphorus Level 3.3, Magnesium Level 2.4 Current Medications Medications (Trade) Dose Ordered Sig/Subhash Route PRN Reason Start Time Stop Time Status Last Admin Dose Admin Acetaminophen (Tylenol) 650 mg Q4H PRN ORAL Mild Pain/Temp > 100.5 06/15/17 08:15 07/15/17 08:14 Atorvastatin Calcium (Lipitor) 10 mg BEDTIME GT 06/15/17 21:00 07/15/17 20:59 06/15/17 21:27 Bisacodyl (Dulcolax) 10 mg DAILYPRN PRN RECTAL Constipation 06/15/17 08:15 07/15/17 08:14 Dextrose/Sodium Chloride 1,000 ml @ 100 mls/hr Q10H IV 06/15/17 09:00 07/15/17 08:59 06/16/17 05:10 Docusate Sodium (Colace) 100 mg DAILY GT 06/15/17 09:00 07/15/17 08:59 Ferrous Sulfate (Feosol) 300 mg DAILY GT 06/15/17 09:00 07/15/17 08:59 06/15/17 10:09 Finasteride (Proscar) 5 mg DAILY ORAL 06/15/17 09:00 07/15/17 08:59 06/15/17 10:09 Heparin Sodium (Porcine) (Heparin 5000 units/ml) 5,000 units EVERY 12 HOURS SUBQ 06/15/17 09:00 07/15/17 08:59 Lansoprazole (Prevacid) 30 mg DAILY GT 06/15/17 09:00 07/15/17 08:59 06/15/17 10:08 Magnesium Hydroxide (Mom) 30 ml DAILYPRN PRN GT Constipation 06/15/17 08:15 07/15/17 08:14 Metoprolol Tartrate (Lopressor) 50 mg EVERY 12 HOURS GT 06/15/17 09:00 07/15/17 08:59 06/15/17 10:09 Metronidazole (Flagyl) 500 mg Q8HR ORAL 06/15/17 12:00 06/22/17 11:59 06/16/17 06:22 Multivitamins Therapeutic (Therapeutic Multivitamin) 1 ea DAILY ORAL 06/15/17 09:00 07/15/17 08:59 06/15/17 10:08 Piperacillin Sod/ Tazobactam Sod 3.375 gm/Dextrose 110 ml @ 27.5 mls/hr EVERY 8 HOURS IVPB 06/15/17 14:00 06/20/17 13:59 06/16/17 05:10 Sodium Phosphate (Fleet's Sodium Phosl Enema) 133 ml DAILYPRN PRN RECTAL Constipation 06/15/17 08:15 07/15/17 08:14 REJI OJEDA Jun 16, 2017 08:18
[2017-06-16] MEDS: Docusate 100mg/10ml Liq GT SCH (08:52)
[2017-06-16] MEDS: Heparin 5000 units/ml inj SUBQ SCH ×2 (08:52→21:00)
[2017-06-16] MEDS: Ferrous Sulfate 300 MG/5 ML UDC GT SCH (09:03)
[2017-06-16] MEDS: Multivitamin w/Minerals tab ORAL SCH (09:03)
[2017-06-16] MEDS: Metoprolol Tartrate 50mg tab GT SCH ×2 (09:03→21:51)
--- NOTE | 2017-06-16 09:31 | General Progress Note ---
Assessment/Plan Problem List: (1) Shock ICD Codes: R57.9 - Shock, unspecified SNOMED: 51452732 (2) persistant coma , probably severe anoxic/metabolic encephalopathy (3) Pacemaker ICD Codes: Z95.0 - Presence of cardiac pacemaker SNOMED: 709747024, 995307587 (4) Respiratory failure ICD Codes: J96.90 - Respiratory failure, unspecified, unspecified whether with hypoxia or hypercapnia SNOMED: 703288782 (5) Severe sepsis ICD Codes: A41.9 - Sepsis, unspecified organism; R65.20 - Severe sepsis without septic shock SNOMED: 07024585 (6) Dehydration ICD Codes: E86.0 - Dehydration SNOMED: 22208199 (7) Nausea & vomiting ICD Codes: R11.2 - Nausea with vomiting, unspecified SNOMED: 25441436 Status: stable, progressing Assessment/Plan iv abx follow up cultures vent resp care gt feeds monitor for bleeding d/w dtr. ok with transfusion Subjective ROS Limited/Unobtainable: No Constitutional: Reports: malaise, weakness HEENT: Reports: no symptoms Cardiovascular: Reports: no symptoms Respiratory: Reports: no symptoms Gastrointestinal/Abdominal: Reports: no symptoms Genitourinary: Reports: no symptoms Neurologic/Psychiatric: Reports: pre-existing deficit Endocrine: Reports: no symptoms Hematologic/Lymphatic: Reports: anemia Allergies: Coded Allergies: No Known Allergies (Unverified , 01/07/17) All Systems: reviewed and negative except above Subjective no events. decreased h/h noted. more alert. d/w dtr kobe- ok with transfusion. no bleeding noted Objective Last 24 Hour Vital Signs Date Time Temp Pulse Resp B/P (MAP) Pulse Ox O2 Delivery O2 Flow Rate FiO2 06/16/17 09:03 81 101/52 06/16/17 08:42 81 20 44 06/16/17 08:00 44 06/16/17 08:00 85 06/16/17 07:02 79 19 44 06/16/17 04:56 78 20 44 06/16/17 04:00 44 06/16/17 04:00 84 06/16/17 04:00 98.4 84 18 101/52 100 Mechanical Ventilator 44 06/16/17 03:30 73 18 44 06/16/17 01:15 66 18 44 06/16/17 00:00 44 06/16/17 00:00 98.4 82 18 94/47 100 Mechanical Ventilator 44 06/15/17 23:45 96 06/15/17 22:37 78 18 44 06/15/17 22:36 63 18 Mechanical Ventilator 44 06/15/17 21:13 78 18 44 06/15/17 20:00 98.1 77 19 102/55 100 Mechanical Ventilator 44 06/15/17 20:00 44 06/15/17 17:20 68 18 44 06/15/17 16:00 97.3 80 20 104/54 100 Mechanical Ventilator 44 06/15/17 16:00 44 06/15/17 16:00 73 06/15/17 14:42 64 23 44 06/15/17 13:05 79 18 44 06/15/17 12:00 44 06/15/17 12:00 84 06/15/17 12:00 97.5 86 18 137/72 100 Mechanical Ventilator 44 06/15/17 11:20 86 19 44 06/15/17 10:09 68 114/58 Intake and Output 06/16/17 06/17/17 19:00 07:00 Intake Total 127.5 ml Balance 127.5 ml IV Total 127.5 ml Laboratory Tests 06/15/17 09:30: Lactic Acid Level 2.40H 06/16/17 03:45: White Blood Count 13.0H, Red Blood Count 2.81L, Hemoglobin 7.8L, Hematocrit 24.6L, Mean Corpuscular Volume 87, Mean Corpuscular Hemoglobin 27.7, Mean Corpuscular Hemoglobin Concent 31.6L, Red Cell Distribution Width 17.9H, Platelet Count 450, Mean Platelet Volume 4.9L, Neutrophils (%) (Auto) , Lymphocytes (%) (Auto) , Monocytes (%) (Auto) , Eosinophils (%) (Auto) , Basophils (%) (Auto) , Neutrophils % (Manual) [Pending], Lymphocytes % (Manual) [Pending], Platelet Estimate [Pending], Platelet Morphology [Pending], Sodium Level 136, Potassium Level 4.1, Chloride Level 104, Carbon Dioxide Level 21, Anion Gap 11, Blood Urea Nitrogen 73H, Creatinine 1.3, Estimat Glomerular Filtration Rate , Glucose Level 181H, Calcium Level 7.6L, Phosphorus Level 3.3, Magnesium Level 2.4 Height (Feet): 5 Height (Inches): 7.00 Weight (Pounds): 175 General Appearance: WD/WN, alert, confused Neck: supple Cardiovascular: normal peripheral pulses, normal rate, regular rhythm Respiratory/Chest: chest wall non-tender, lungs clear, normal breath sounds, no respiratory distress Abdomen: normal bowel sounds, non tender, soft, no organomegaly Edema: no edema noted Arm (L), no edema noted Arm (R), no edema noted Leg (L), no edema noted Leg (R), no edema noted Pedal (L), no edema noted Pedal (R), no edema noted Generalized WENDIE CASTELLANOS Jun 16, 2017 09:31
--- NOTE | 2017-06-16 10:57 | Nephrology Progress Note ---
Assessment/Plan Plan Pre Renal Azotemia improving Subjective Subjective Nonverbal Objective Objective Last 24 Hour Vital Signs Date Time Temp Pulse Resp B/P (MAP) Pulse Ox O2 Delivery O2 Flow Rate FiO2 06/16/17 10:46 67 21 44 06/16/17 09:03 81 101/52 06/16/17 08:42 81 20 44 06/16/17 08:00 44 06/16/17 08:00 85 06/16/17 08:00 98.8 83 20 113/55 100 Mechanical Ventilator 44 06/16/17 07:02 79 19 44 06/16/17 04:56 78 20 44 06/16/17 04:00 44 06/16/17 04:00 84 06/16/17 04:00 98.4 84 18 101/52 100 Mechanical Ventilator 44 06/16/17 03:30 73 18 44 06/16/17 01:15 66 18 44 06/16/17 00:00 44 06/16/17 00:00 98.4 82 18 94/47 100 Mechanical Ventilator 44 06/15/17 23:45 96 06/15/17 22:37 78 18 44 06/15/17 22:36 63 18 Mechanical Ventilator 44 06/15/17 21:13 78 18 44 06/15/17 20:00 98.1 77 19 102/55 100 Mechanical Ventilator 44 06/15/17 20:00 44 06/15/17 17:20 68 18 44 06/15/17 16:00 97.3 80 20 104/54 100 Mechanical Ventilator 44 06/15/17 16:00 44 06/15/17 16:00 73 06/15/17 14:42 64 23 44 06/15/17 13:05 79 18 44 06/15/17 12:00 44 06/15/17 12:00 84 06/15/17 12:00 97.5 86 18 137/72 100 Mechanical Ventilator 44 06/15/17 11:20 86 19 44 Intake and Output 06/16/17 06/17/17 19:00 07:00 Intake Total 255.0 ml Balance 255.0 ml IV Total 255.0 ml Laboratory Tests 06/16/17 03:45: White Blood Count 13.0H, Red Blood Count 2.81L, Hemoglobin 7.8L, Hematocrit 24.6L, Mean Corpuscular Volume 87, Mean Corpuscular Hemoglobin 27.7, Mean Corpuscular Hemoglobin Concent 31.6L, Red Cell Distribution Width 17.9H, Platelet Count 450, Mean Platelet Volume 4.9L, Neutrophils (%) (Auto) , Lymphocytes (%) (Auto) , Monocytes (%) (Auto) , Eosinophils (%) (Auto) , Basophils (%) (Auto) , Neutrophils % (Manual) [Pending], Lymphocytes % (Manual) [Pending], Platelet Estimate [Pending], Platelet Morphology [Pending], Sodium Level 136, Potassium Level 4.1, Chloride Level 104, Carbon Dioxide Level 21, Anion Gap 11, Blood Urea Nitrogen 73H, Creatinine 1.3, Estimat Glomerular Filtration Rate , Glucose Level 181H, Calcium Level 7.6L, Phosphorus Level 3.3, Magnesium Level 2.4 Height (Feet): 5 Height (Inches): 7.00 Weight (Pounds): 175 Objective Trach clean CV RR Lungs B Ronchi Abd SNT. BS +++ E No CCE NERIS ROQUE Jun 16, 2017 10:57
[2017-06-16 11:24] LABS: BAND NEUTROPHILS % (MANUAL) 2 % (0-8); BASOPHILS % (MANUAL) 0 % (0-2); EOSINOPHILS % (MANUAL) 0 % (0-3); LYMPHOCYTES % (MANUAL) 11 % (20-45); NEUTROPHILS % (MANUAL) 78 % (45-75); PLATELET ESTIMATE INCREASED; PLATELET MORPHOLOGY NORMAL; TOTAL CELLS COUNTED 100
[2017-06-16 11:25] LABS: ANISOCYTOSIS 1+; HYPOCHROMASIA 1+
[2017-06-16 12:00] VITALS: BP 94/44
[2017-06-16 16:00] VITALS: BP 109/48
--- NOTE | 2017-06-16 18:45 | Consultation ---
DATE OF CONSULTATION: 06/16/2017 INFECTIOUS DISEASES CONSULTATION CONSULTING PHYSICIAN: Ba Clemente M.D. REFERRING PHYSICIAN: Jona Guerra M.D. REASON FOR CONSULTATION: Leukocytosis. HISTORY OF PRESENTING ILLNESS: This is an 82-year-old gentleman with history of encephalopathy; chronic respiratory failure; conduction system disease, status post pacemaker; and hypertension who came in from a residential facility with fever. He was found to have a urinary tract infection and leukocytosis, and an Infectious Diseases consultation has been obtained for antibiotics. PAST MEDICAL HISTORY: 1. History of encephalopathy. 2. COPD. 3. Respiratory failure, status post tracheostomy. 4. Conduction system disease, status post pacemaker placement. 5. History of hypertension. 6. Status post G-tube placement. MEDICATIONS: As an inpatient, the patient is on atorvastatin, Zosyn, Flagyl, Colace, ferrous sulfate, Proscar, subcutaneous heparin, Prevacid, metoprolol, multivitamin, Tylenol, Dulcolax, and milk of magnesia. ALLERGIES: No known drug allergies. SOCIAL HISTORY: No history of smoking, alcohol, or drug use. FAMILY HISTORY: Unknown. REVIEW OF SYSTEMS: Unable to obtain currently. PHYSICAL EXAMINATION: VITAL SIGNS: Temperature of 98.8 degrees, T-max of 99.3 degrees, pulse of 81, respiratory rate 20, blood pressure 101/52, and O2 saturation of 100%. HEENT: Pupils equally reactive to light and accommodation. Mouth appears clean without thrush. NECK: Supple. No adenopathy. No JVD. Tracheostomy site appears clean. CARDIOVASCULAR: Regular rate and rhythm. No murmurs. LUNGS: Clear to auscultation bilaterally. No crackles. No wheezes. ABDOMEN: Soft and nontender. No organomegaly. G-tube site appears clean. EXTREMITIES: No cyanosis, no clubbing, and no edema. LABORATORY AND DIAGNOSTIC DATA: White count of 15.3 on 06/15/2017, white count of 13 on 06/16/2017, hemoglobin 7.8, hematocrit 24.6, MCV 87, and platelet count of 450. Sodium 136, potassium 4.1, chloride 104, bicarbonate 21, BUN 76, creatinine 1.6, glucose 181, calcium 7.6. Total bilirubin on 06/15/2017 0.6. AST 14, ALT 10, and alkaline phosphatase 143. CK of 54 and CK-MB 0.8. Total protein 6.4. Albumin 1.1. UA showing too numerous to count white cells. Urine culture is showing gram-negative rods. Blood cultures are negative from 06/15/2017. From 06/15/2017, stool for C. difficile was positive. Chest x-ray showing interstitial edema. ASSESSMENT: This is an 82-year-old gentleman with history of respiratory failure, status post tracheostomy; chronic obstructive pulmonary disease; and encephalopathy who comes in and is found to have gram-negative urinary tract infection. 1. Gram-negative urinary tract infection. 2. Leukocytosis is improving. 3. Clostridium difficile colitis. PLAN: 1. Continue Zosyn. 2. Continue Flagyl. 3. We will follow up cultures and adjust antibiotics accordingly. I would like to thank, Dr. Guerra, for this consultation. Ba Clemente M.D. DR: ARASH JOB#: [id number] CC: Jona Guerra M.D.; Fax#: [phone]
--- NOTE | 2017-06-16 19:37 | General Progress Note ---
Assessment/Plan Assessment/Plan Assessment - Dark NGT aspirate - Family decline endoscopy due tp patient poor health - C Diff colitis - Resp failure, s/p trach - dysphagia, s/p PEG - COPD Recommendations - monitor CBC - Rx C diff - Elevate HOB - PPI - no plans for EGD per family request - restart TF, slowly Subjective Allergies: Coded Allergies: No Known Allergies (Unverified , 01/07/17) Subjective Calm off of TF this am Objective Last 24 Hour Vital Signs Date Time Temp Pulse Resp B/P (MAP) Pulse Ox O2 Delivery O2 Flow Rate FiO2 06/16/17 19:02 82 20 45 06/16/17 18:00 70 06/16/17 17:15 80 20 45 06/16/17 16:00 99.0 69 20 109/48 100 Mechanical Ventilator 44 06/16/17 16:00 44 06/16/17 15:09 72 20 44 06/16/17 13:14 70 19 44 06/16/17 12:00 44 06/16/17 12:00 98.2 70 26 94/44 100 Mechanical Ventilator 44 06/16/17 11:37 72 06/16/17 10:46 67 21 44 06/16/17 09:03 81 101/52 06/16/17 08:42 81 20 44 06/16/17 08:00 44 06/16/17 08:00 85 06/16/17 08:00 98.8 83 20 113/55 100 Mechanical Ventilator 44 06/16/17 07:02 79 19 44 06/16/17 04:56 78 20 44 06/16/17 04:00 44 06/16/17 04:00 84 06/16/17 04:00 98.4 84 18 101/52 100 Mechanical Ventilator 44 06/16/17 03:30 73 18 44 06/16/17 01:15 66 18 44 06/16/17 00:00 44 06/16/17 00:00 98.4 82 18 94/47 100 Mechanical Ventilator 44 06/15/17 23:45 96 06/15/17 22:37 78 18 44 06/15/17 22:36 63 18 Mechanical Ventilator 44 06/15/17 21:13 78 18 44 06/15/17 20:00 98.1 77 19 102/55 100 Mechanical Ventilator 44 06/15/17 20:00 44 Intake and Output 06/16/17 06/17/17 19:00 07:00 Intake Total 465.0 ml Output Total 800 ml Balance -335.0 ml IV Total 465.0 ml Output Urine Total 500 ml Stool Total 300 ml # Bowel Movements 2 Laboratory Tests 06/16/17 03:45: White Blood Count 13.0H, Red Blood Count 2.81L, Hemoglobin 7.8L, Hematocrit 24.6L, Mean Corpuscular Volume 87, Mean Corpuscular Hemoglobin 27.7, Mean Corpuscular Hemoglobin Concent 31.6L, Red Cell Distribution Width 17.9H, Platelet Count 450, Mean Platelet Volume 4.9L, Neutrophils (%) (Auto) , Lymphocytes (%) (Auto) , Monocytes (%) (Auto) , Eosinophils (%) (Auto) , Basophils (%) (Auto) , Differential Total Cells Counted 100, Neutrophils % ( Manual) 78H, Lymphocytes % (Manual) 11L, Monocytes % (Manual) 9, Eosinophils % ( Manual) 0, Basophils % (Manual) 0, Band Neutrophils 2, Platelet Estimate IncreasedH, Platelet Morphology Normal, Hypochromasia 1+, Anisocytosis 1+, Sodium Level 136, Potassium Level 4.1, Chloride Level 104, Carbon Dioxide Level 21, Anion Gap 11, Blood Urea Nitrogen 73H, Creatinine 1.3, Estimat Glomerular Filtration Rate , Glucose Level 181H, Calcium Level 7.6L, Phosphorus Level 3.3, Magnesium Level 2.4 Height (Feet): 5 Height (Inches): 7.00 Weight (Pounds): 175 Objective Debilitated elderly L man NCAT supple CTA RRR Soft no edema OBS HITESH BURNS Jun 16, 2017 19:37
[2017-06-16 20:00] VITALS: BP 126/59
[2017-06-17] VITALS: BP 124/65
[2017-06-17] MEDS: D5NS 1,000 ML IV SCH ×3 (01:04→21:16)
[2017-06-17 04:00] VITALS: BP 116/61
[2017-06-17 04:41] LABS: BASOPHILS % (AUTO) 0.5 % (0.0-2.0); EOSINOPHILS % (AUTO) 0.5 % (0.0-3.0); LYMPHOCYTES % (AUTO) 14.5 % (20.0-45.0); MEAN CORPUSCULAR HEMOGLOBIN 29.1 PG (27.0-31.0); MEAN CORPUSCULAR HGB CONC 33.2 G/DL (32.0-36.0); MEAN CORPUSCULAR VOLUME 88 FL (80-99); MEAN PLATELET VOLUME 4.8 FL (6.5-10.1); MONOCYTES % (AUTO) 6.8 % (1.0-10.0); NEUTROPHILS % (AUTO) 77.7 % (45.0-75.0); PLATELET COUNT 435 K/UL (150-450); RED BLOOD COUNT 3.19 M/UL (4.70-6.10); RED CELL DISTRIBUTION WIDTH 16.5 % (11.6-14.8)
[2017-06-17] MEDS: metroNIDAZOLE 500mg tab ORAL SCH ×3 (05:44→21:20)
[2017-06-17] MEDS: Piperacillin/Tazobactam 3.375 GM in D5W 110 ML IVPB SCH (05:44)
[2017-06-17 08:00] VITALS: BP 112/56
--- NOTE | 2017-06-17 08:17 | Wound Care Consultation ---
Wound Assessment Wound Assessment #1: Wound Number: 1 Wound Present on Admission: Yes New Wound: No Status Change of Wound: No Wound Location Body Site Modif: mid Wound Location Body Site: sacral Wound Type: pressure ulcer Anette Test: Does not Anette Pressure Ulcer Stage: Deep Tissue Injury Wound Thickness: Full Thickness Wound Length: 3.5 Wound Width: 3.0 Wound Depth: utd Percent of Wound Purple/Maroon: 100 Wound Drainage Amount: None Wound Drainage Odor: None/Absent Tissue Surrounding Wound: Erythemic Wound General Appearance: Reddened - purple Wound Assessment #2: Wound Number: 2 Wound Present on Admission: Yes New Wound: No Status Change of Wound: No Wound Location Body Site Modif: mid Wound Location Body Site: coccyx Wound Type: pressure ulcer Anette Test: Does not Anette Pressure Ulcer Stage: III Wound Thickness: Full Thickness Wound Length: 3.5 Wound Width: 3.5 Wound Depth: 0.2 Percent of Wound [place]/Red: 95 Percent of Wound Bed Yellow/Wh: 5 Wound Drainage Description: Serosanguineous Wound Drainage Amount: Moderate Wound Drainage Odor: None/Absent Tissue Surrounding Wound: Macerated Wound General Appearance: Reddened, Draining Wound Assessment #3: Wound Number: 3 Wound Present on Admission: Yes New Wound: No Status Change of Wound: No Wound Location Body Site Modif: left Wound Location Body Site: trochanter - area Wound Type: pressure ulcer Anette Test: Does not Anette Pressure Ulcer Stage: Unstageable Wound Thickness: Full Thickness Wound Length: 4.5 Wound Width: 4.0 Wound Depth: utd Percent of Wound Bed Yellow/Wh: 70 Percent of Wound Black/Brown: 30 Wound Drainage Description: Serosanguineous Wound Drainage Amount: Moderate Wound Drainage Odor: None/Absent Tissue Surrounding Wound: Macerated Wound General Appearance: Draining, Necrotic Wound Assessment #4: Wound Number: 4 Wound Present on Admission: Yes New Wound: No Status Change of Wound: No Wound Location Body Site Modif: left Wound Location Body Site: ischial tuberosity Wound Type: pressure ulcer Anette Test: Does not Anette Pressure Ulcer Stage: II Wound Thickness: Partial Thickness Wound Length: 2.0 Wound Width: 2.0 Wound Depth: less than 0.1 Percent of Wound [place]/Red: 100 Wound Drainage Description: Serosanguineous Wound Drainage Amount: Scant Wound Drainage Odor: None/Absent Tissue Surrounding Wound: Erythemic Wound General Appearance: Reddened, Draining Wound Assessment #5: Wound Number: 5 Wound Present on Admission: Yes New Wound: No Status Change of Wound: No Wound Location Body Site Modif: right Wound Location Body Site: heel Wound Type: pressure ulcer Anette Test: Does not Anette Pressure Ulcer Stage: Unstageable Wound Thickness: Full Thickness Wound Length: 8.0 Wound Width: 8.0 Wound Depth: utd Percent of Wound Black/Brown: 100 Wound Drainage Description: Serosanguineous Wound Drainage Amount: Scant Wound Drainage Odor: None/Absent Tissue Surrounding Wound: Indurated Wound General Appearance: Blackened, Draining, Necrotic Wound Assessment #6: Wound Number: 6 Wound Present on Admission: Yes New Wound: No Status Change of Wound: No Wound Location Body Site Modif: right, mid, lateral Wound Location Body Site: foot Wound Type: vascular issue w/vascular changes Anette Test: Does not Anette Wound Thickness: Full Thickness Wound Length: 7.0 Wound Width: 5.0 Wound Depth: utd Percent of Wound Black/Brown: 100 Wound Drainage Description: Serosanguineous Wound Drainage Amount: Scant Wound Drainage Odor: None/Absent Tissue Surrounding Wound: Indurated Wound General Appearance: Blackened, Draining, Necrotic Wound Assessment #7: Wound Number: 7 Wound Present on Admission: Yes New Wound: No Status Change of Wound: No Wound Location Body Site Modif: right, plantar Wound Location Body Site: metatarsal head - 5th Wound Type: vascular issue w/vascular changes Anette Test: Does not Anette Wound Thickness: Full Thickness Wound Length: 2.0 Wound Width: 2.0 Wound Depth: utd Percent of Wound Black/Brown: 100 Wound Drainage Amount: None Wound Drainage Odor: None/Absent Tissue Surrounding Wound: Indurated Wound General Appearance: Blackened, Draining, Necrotic Wound Assessment #8: Wound Number: 8 Wound Present on Admission: Yes New Wound: No Status Change of Wound: No Wound Location Body Site Modif: left Wound Location Body Site: heel Wound Type: vascular issue w/vascular changes Anette Test: Does not Anette Wound Thickness: Full Thickness Wound Length: 7.5 Wound Width: 8.5 Wound Depth: utd Percent of Wound Black/Brown: 100 Wound Drainage Description: Serosanguineous Wound Drainage Amount: Scant Wound Drainage Odor: None/Absent Tissue Surrounding Wound: Indurated Wound General Appearance: Blackened, Draining, Necrotic Wound Assessment #9: Wound Number: 9 Wound Present on Admission: Yes New Wound: No Status Change of Wound: No Wound Location Body Site Modif: left, mid, lateral Wound Location Body Site: foot Wound Type: vascular wound Anette Test: Does not Anette Wound Thickness: Full Thickness Wound Length: 8.0 Wound Width: 5.5 Wound Depth: utd Percent of Wound Black/Brown: 100 Wound Drainage Description: Serosanguineous Wound Drainage Amount: Scant Wound Drainage Odor: None/Absent Tissue Surrounding Wound: Indurated Wound General Appearance: Blackened, Draining, Necrotic Wound Assessment #10: Wound Number: 10 Wound Present on Admission: Yes New Wound: No Status Change of Wound: No Wound Location Body Site Modif: left, lateral Wound Location Body Site: malleolus/ankle - 5th Wound Type: vascular wound Anette Test: Does not Anette Wound Thickness: Full Thickness Wound Length: 4.5 Wound Width: 4.0 Wound Depth: utd Percent of Wound Black/Brown: 100 Wound Drainage Description: Serosanguineous Wound Drainage Amount: Scant Wound Drainage Odor: None/Absent Tissue Surrounding Wound: Indurated Wound General Appearance: Blackened, Draining, Necrotic Wound Assessment #11: Wound Number: 11 Wound Present on Admission: Yes New Wound: No Status Change of Wound: No Wound Location Body Site Modif: left, lateral Wound Location Body Site: malleolus/ankle Wound Type: vascular issue w/vascular changes Anette Test: Does not Anette Wound Thickness: Full Thickness Wound Length: 8.5 Wound Width: 4.5 Wound Depth: utd Percent of Wound Black/Brown: 100 Wound Drainage Description: Serosanguineous Wound Drainage Amount: Scant Wound Drainage Odor: None/Absent Tissue Surrounding Wound: Indurated Wound General Appearance: Blackened, Draining, Necrotic Wound Comment #1 Sacral DTI pressure ulcer #2 Coccyx stage III pressure ulcer #3 Left Ischial tuberosity on stage II pressure ulcer #4 Left trochanter unstageable pressure ulcer #5 Right heel unstageable pressure ulcer with black eschar adhered to wound bed #6 Left heel unstageable pressure ulcer with black eschar adhered to wound bed #7 Right lateral mid foot open wound with black eschar adhere to wound bed #8 Right 5th plantar metatarsal head open wound #9 Left lateral mid foot open wound with black eschar adhered to wound bed #10 Left lateral 5th metatarsal head open wound with black eschar adhered to wound bed #11 Left lateral lower leg open wound Recommendation -Podiatry consult -Local wound care pre protocol -Keep clean and dry -Turn and reposition -Optimize nutrition -Offload both heels -Heel protector on both heels -Low air loss mattress -Assess and f/u accordingly for any changes MARIANO SAUER RN Jun 17, 2017 08:17
[2017-06-17] MEDS: Docusate 100mg/10ml Liq GT SCH (09:00)
[2017-06-17] MEDS: Ferrous Sulfate 300 MG/5 ML UDC GT SCH (09:28)
[2017-06-17] MEDS: Multivitamin w/Minerals tab ORAL SCH (09:29)
[2017-06-17] MEDS: Metoprolol Tartrate 50mg tab GT SCH ×2 (09:30→21:15)
[2017-06-17] MEDS: Heparin 5000 units/ml inj SUBQ SCH ×2 (09:38→21:18)
--- NOTE | 2017-06-17 10:55 | Pulmonology Progress Note ---
Assessment/Plan Assessment/Plan IMPRESSION: 1. Acute on chronic renal failure. 2. Lactic acidemia. 3. Leukocytosis, possible sepsis. 4. Respiratory failure, chronic. 5. Possible gastrointestinal bleed. 6. Anemia, possibly due to chronic disease. 7. Chronic encephalopathy. 8. Chronic debility. 9. Multiple pressure ulcers. 10. Paroxysmal atrial fibrillation. 11. Chronic obstructive pulmonary disease. PLAN stabilize IV antibiotics ID followup GI followup renal followup hydration monitor labs ventilator management SNF meds monitor for change suction with caution dc back to SNF when stable guarded and still acute impression, plan, and exam edited and reviewed in detail care discussed with RN Subjective ROS Limited/Unobtainable: Yes Allergies: Coded Allergies: No Known Allergies (Unverified , 01/07/17) Subjective care noted now more anemic reduced LOC ventilator reviewed full support Objective Last 24 Hour Vital Signs Date Time Temp Pulse Resp B/P (MAP) Pulse Ox O2 Delivery O2 Flow Rate FiO2 06/17/17 09:30 84 112/56 06/17/17 09:04 84 22 30 06/17/17 08:00 98.6 78 21 112/56 100 Mechanical Ventilator 30 06/17/17 06:51 77 20 30 06/17/17 04:57 79 19 30 06/17/17 04:00 98.2 86 20 116/61 100 Mechanical Ventilator 30 06/17/17 04:00 30 06/17/17 04:00 84 06/17/17 02:39 82 20 30 06/17/17 00:51 88 16 45 06/17/17 00:00 98.4 73 16 124/65 100 Mechanical Ventilator 45 06/17/17 00:00 44 06/17/17 00:00 79 06/17/17 00:00 98.4 73 16 124/65 100 Mechanical Ventilator 45 06/16/17 22:51 83 20 45 06/16/17 22:50 63 18 Mechanical Ventilator 44 06/16/17 21:51 78 126/59 06/16/17 21:04 86 20 45 06/16/17 20:00 44 06/16/17 20:00 99.9 78 20 126/59 100 Mechanical Ventilator 45 06/16/17 20:00 79 06/16/17 19:02 82 20 45 06/16/17 18:00 70 06/16/17 17:15 80 20 45 06/16/17 16:00 99.0 69 20 109/48 100 Mechanical Ventilator 44 06/16/17 16:00 44 06/16/17 15:09 72 20 44 06/16/17 13:14 70 19 44 06/16/17 12:00 44 06/16/17 12:00 98.2 70 26 94/44 100 Mechanical Ventilator 44 06/16/17 11:37 72 Objective GENERAL: Patient an ill appearing male, overall, chronically debilitated. HEENT: Overall negative. Pupils are sluggish. Tracheostomy midline. Carotid 2+. NECK: Supple. LUNGS: Coarse breath sounds. Moderate air entry. some rhonchi. CARDIAC: Normal S1 and S2, slightly distant without murmurs, rubs or gallops. ABDOMEN: Soft, nontender, and nondistended. Positive bowel sounds. G-tube in place. EXTREMITIES: No cyanosis, clubbing, or significant contractures. NEUROLOGICALLY: Poor mental status. Overall nonverbal. Microbiology Date/Time Source Procedure Growth Status 06/15/17 03:30 Blood Blood Culture - Preliminary NO GROWTH AFTER 48 HOURS Resulted 06/15/17 03:25 Blood Blood Culture - Preliminary NO GROWTH AFTER 48 HOURS Resulted 06/15/17 07:20 Stool Clostridium difficile Toxin Assay - Final Complete 06/15/17 04:04 Urine,Clean Catch Urine Culture - Preliminary Klebsiella Pneumoniae - Mdr Escherichia Coli Resulted Laboratory Tests 06/17/17 02:45: White Blood Count 14.0H, Red Blood Count 3.19L, Hemoglobin 9.3L, Hematocrit 28.0L, Mean Corpuscular Volume 88, Mean Corpuscular Hemoglobin 29.1, Mean Corpuscular Hemoglobin Concent 33.2, Red Cell Distribution Width 16.5H, Platelet Count 435, Mean Platelet Volume 4.8L, Neutrophils (%) (Auto) 77.7H, Lymphocytes (%) (Auto) 14.5L, Monocytes (%) (Auto) 6.8, Eosinophils (%) (Auto) 0.5, Basophils (%) (Auto) 0.5 Current Medications Medications (Trade) Dose Ordered Sig/Subhash Route PRN Reason Start Time Stop Time Status Last Admin Dose Admin Acetaminophen (Tylenol) 650 mg Q4H PRN ORAL Mild Pain/Temp > 100.5 06/15/17 08:15 07/15/17 08:14 Atorvastatin Calcium (Lipitor) 10 mg BEDTIME GT 06/15/17 21:00 07/15/17 20:59 06/16/17 21:51 Bisacodyl (Dulcolax) 10 mg DAILYPRN PRN RECTAL Constipation 06/15/17 08:15 07/15/17 08:14 Dextrose/Sodium Chloride 1,000 ml @ 100 mls/hr Q10H IV 06/15/17 09:00 07/15/17 08:59 06/17/17 01:04 Docusate Sodium (Colace) 100 mg DAILY GT 06/15/17 09:00 07/15/17 08:59 Ferrous Sulfate (Feosol) 300 mg DAILY GT 06/15/17 09:00 07/15/17 08:59 06/17/17 09:28 Finasteride (Proscar) 5 mg DAILY ORAL 06/15/17 09:00 07/15/17 08:59 06/17/17 09:29 Heparin Sodium (Porcine) (Heparin 5000 units/ml) 5,000 units EVERY 12 HOURS SUBQ 06/15/17 09:00 07/15/17 08:59 06/17/17 09:38 Lansoprazole (Prevacid) 30 mg DAILY GT 06/15/17 09:00 07/15/17 08:59 06/17/17 09:29 Magnesium Hydroxide (Mom) 30 ml DAILYPRN PRN GT Constipation 06/15/17 08:15 07/15/17 08:14 Metoprolol Tartrate (Lopressor) 50 mg EVERY 12 HOURS GT 06/15/17 09:00 07/15/17 08:59 06/17/17 09:30 Metronidazole (Flagyl) 500 mg Q8HR ORAL 06/15/17 12:00 06/22/17 11:59 06/17/17 05:44 Multivitamins Therapeutic (Therapeutic Multivitamin) 1 ea DAILY ORAL 06/15/17 09:00 07/15/17 08:59 06/17/17 09:29 Piperacillin Sod/ Tazobactam Sod 3.375 gm/Dextrose 110 ml @ 27.5 mls/hr EVERY 8 HOURS IVPB 06/15/17 14:00 06/20/17 13:59 06/17/17 05:44 Sodium Phosphate (Fleet's Sodium Phosl Enema) 133 ml DAILYPRN PRN RECTAL Constipation 06/15/17 08:15 07/15/17 08:14 REJI OJEDA Jun 17, 2017 10:55
--- NOTE | 2017-06-17 11:32 | Infectious Diseases Prog Note ---
"Assessment/Plan Assessment/Plan antibiotics : zosyn, flagyl A 1. klebsiella | e.coli UTI 2. c.diff colitis 3. leucocytosis 4. respiratory failure 5. COPD P 1. d/c zosyn 2. start gentamicin 3. continue flagyl 4. will follow up cultures Subjective ROS Limited/Unobtainable: Yes Allergies: Coded Allergies: No Known Allergies (Unverified , 01/07/17) Objective Vital Signs Last 24 Hour Vital Signs Date Time Temp Pulse Resp B/P (MAP) Pulse Ox O2 Delivery O2 Flow Rate FiO2 06/17/17 11:23 67 18 30 06/17/17 09:30 84 112/56 06/17/17 09:04 84 22 30 06/17/17 08:00 98.6 78 21 112/56 100 Mechanical Ventilator 30 06/17/17 08:00 30 06/17/17 08:00 78 06/17/17 06:51 77 20 30 06/17/17 04:57 79 19 30 06/17/17 04:00 98.2 86 20 116/61 100 Mechanical Ventilator 30 06/17/17 04:00 30 06/17/17 04:00 84 06/17/17 02:39 82 20 30 06/17/17 00:51 88 16 45 06/17/17 00:00 98.4 73 16 124/65 100 Mechanical Ventilator 45 06/17/17 00:00 44 06/17/17 00:00 79 06/17/17 00:00 98.4 73 16 124/65 100 Mechanical Ventilator 45 06/16/17 22:51 83 20 45 06/16/17 22:50 63 18 Mechanical Ventilator 44 06/16/17 21:51 78 126/59 06/16/17 21:04 86 20 45 06/16/17 20:00 44 06/16/17 20:00 99.9 78 20 126/59 100 Mechanical Ventilator 45 06/16/17 20:00 79 06/16/17 19:02 82 20 45 06/16/17 18:00 70 06/16/17 17:15 80 20 45 06/16/17 16:00 99.0 69 20 109/48 100 Mechanical Ventilator 44 06/16/17 16:00 44 06/16/17 15:09 72 20 44 06/16/17 13:14 70 19 44 06/16/17 12:00 44 06/16/17 12:00 98.2 70 26 94/44 100 Mechanical Ventilator 44 06/16/17 11:37 72 Height (Feet): 5 Height (Inches): 7.00 Weight (Pounds): 175 HEENT: status post trach Respiratory/Chest: lungs clear Cardiovascular: normal rate, regular rhythm, no gallop/murmur Abdomen: soft, non tender, other - GT Extremities: no edema Microbiology Date/Time Source Procedure Growth Status 06/15/17 03:30 Blood Blood Culture - Preliminary NO GROWTH AFTER 48 HOURS Resulted 06/15/17 03:25 Blood Blood Culture - Preliminary NO GROWTH AFTER 48 HOURS Resulted 06/15/17 07:20 Stool Clostridium difficile Toxin Assay - Final Complete 06/15/17 04:04 Urine,Clean Catch Urine Culture - Preliminary Klebsiella Pneumoniae - Mdr Escherichia Coli Resulted Laboratory Tests Test 06/17/17 02:45 White Blood Count 14.0 K/UL (4.8-10.8) H Red Blood Count 3.19 M/UL (4.70-6.10) L Hemoglobin 9.3 G/DL (14.2-18.0) L Hematocrit 28.0 % (42.0-52.0) L Mean Corpuscular Volume 88 FL (80-99) Mean Corpuscular Hemoglobin 29.1 PG (27.0-31.0) Mean Corpuscular Hemoglobin Concent 33.2 G/DL (32.0-36.0) Red Cell Distribution Width 16.5 % (11.6-14.8) H Platelet Count 435 K/UL (150-450) Mean Platelet Volume 4.8 FL (6.5-10.1) L Neutrophils (%) (Auto) 77.7 % (45.0-75.0) H Lymphocytes (%) (Auto) 14.5 % (20.0-45.0) L Monocytes (%) (Auto) 6.8 % (1.0-10.0) Eosinophils (%) (Auto) 0.5 % (0.0-3.0) Basophils (%) (Auto) 0.5 % (0.0-2.0) VINICIO VAUGHAN Jun 17, 2017 11:32"
--- NOTE | 2017-06-17 11:47 | Nephrology Progress Note ---
Assessment/Plan Plan Pre Renal Azotemia improving Subjective Subjective Nonverbal Objective Objective Last 24 Hour Vital Signs Date Time Temp Pulse Resp B/P (MAP) Pulse Ox O2 Delivery O2 Flow Rate FiO2 06/17/17 11:23 67 18 30 06/17/17 09:30 84 112/56 06/17/17 09:04 84 22 30 06/17/17 08:00 98.6 78 21 112/56 100 Mechanical Ventilator 30 06/17/17 08:00 30 06/17/17 08:00 78 06/17/17 06:51 77 20 30 06/17/17 04:57 79 19 30 06/17/17 04:00 98.2 86 20 116/61 100 Mechanical Ventilator 30 06/17/17 04:00 30 06/17/17 04:00 84 06/17/17 02:39 82 20 30 06/17/17 00:51 88 16 45 06/17/17 00:00 98.4 73 16 124/65 100 Mechanical Ventilator 45 06/17/17 00:00 44 06/17/17 00:00 79 06/17/17 00:00 98.4 73 16 124/65 100 Mechanical Ventilator 45 06/16/17 22:51 83 20 45 06/16/17 22:50 63 18 Mechanical Ventilator 44 06/16/17 21:51 78 126/59 06/16/17 21:04 86 20 45 06/16/17 20:00 44 06/16/17 20:00 99.9 78 20 126/59 100 Mechanical Ventilator 45 06/16/17 20:00 79 06/16/17 19:02 82 20 45 06/16/17 18:00 70 06/16/17 17:15 80 20 45 06/16/17 16:00 99.0 69 20 109/48 100 Mechanical Ventilator 44 06/16/17 16:00 44 06/16/17 15:09 72 20 44 06/16/17 13:14 70 19 44 06/16/17 12:00 44 06/16/17 12:00 98.2 70 26 94/44 100 Mechanical Ventilator 44 Intake and Output 06/17/17 06/18/17 19:00 07:00 Intake Total 200 ml Balance 200 ml Tube Feeding 80 ml Other 120 ml # Bowel Movements 1 Laboratory Tests 06/17/17 02:45: White Blood Count 14.0H, Red Blood Count 3.19L, Hemoglobin 9.3L, Hematocrit 28.0L, Mean Corpuscular Volume 88, Mean Corpuscular Hemoglobin 29.1, Mean Corpuscular Hemoglobin Concent 33.2, Red Cell Distribution Width 16.5H, Platelet Count 435, Mean Platelet Volume 4.8L, Neutrophils (%) (Auto) 77.7H, Lymphocytes (%) (Auto) 14.5L, Monocytes (%) (Auto) 6.8, Eosinophils (%) (Auto) 0.5, Basophils (%) (Auto) 0.5 Height (Feet): 5 Height (Inches): 7.00 Weight (Pounds): 175 Objective Trach clean CV RR Lungs B Marguerite Dick SNT. BS +++ E No CCE NERIS ROQUE Jun 17, 2017 11:47
[2017-06-17 12:00] VITALS: BP 103/44
[2017-06-17] MEDS ORDERED: Gentamicin inj 300 MG in NS 110 ML IVPB SCH (13:00)
--- NOTE | 2017-06-17 13:35 | General Progress Note ---
Assessment/Plan Problem List: (1) Shock ICD Codes: R57.9 - Shock, unspecified SNOMED: 23964380 (2) persistant coma , probably severe anoxic/metabolic encephalopathy (3) Pacemaker ICD Codes: Z95.0 - Presence of cardiac pacemaker SNOMED: 528955658, 249424728 (4) Respiratory failure ICD Codes: J96.90 - Respiratory failure, unspecified, unspecified whether with hypoxia or hypercapnia SNOMED: 495087916 (5) Severe sepsis ICD Codes: A41.9 - Sepsis, unspecified organism; R65.20 - Severe sepsis without septic shock SNOMED: 53407588 (6) Dehydration ICD Codes: E86.0 - Dehydration SNOMED: 92740980 (7) Nausea & vomiting ICD Codes: R11.2 - Nausea with vomiting, unspecified SNOMED: 58220582 Status: stable, progressing Assessment/Plan iv abx per id vent resp care gt feeds monitor for bleeding d/w dtr. monitor h/h transfuse prn Subjective ROS Limited/Unobtainable: Yes Constitutional: Reports: malaise, weakness HEENT: Reports: no symptoms Cardiovascular: Reports: no symptoms Respiratory: Reports: cough Gastrointestinal/Abdominal: Reports: no symptoms Genitourinary: Reports: no symptoms Neurologic/Psychiatric: Reports: depressed Endocrine: Reports: no symptoms Hematologic/Lymphatic: Reports: anemia Allergies: Coded Allergies: No Known Allergies (Unverified , 01/07/17) All Systems: reviewed and negative except above Subjective no events. w/o complaints. no fever or chills. less diarrhea. ID noted. cultures noted. Objective Last 24 Hour Vital Signs Date Time Temp Pulse Resp B/P (MAP) Pulse Ox O2 Delivery O2 Flow Rate FiO2 06/17/17 12:55 55 22 30 06/17/17 12:47 67 06/17/17 11:23 67 18 30 06/17/17 09:30 84 112/56 06/17/17 09:04 84 22 30 06/17/17 08:00 98.6 78 21 112/56 100 Mechanical Ventilator 30 06/17/17 08:00 30 06/17/17 08:00 78 06/17/17 06:51 77 20 30 06/17/17 04:57 79 19 30 06/17/17 04:00 98.2 86 20 116/61 100 Mechanical Ventilator 30 06/17/17 04:00 30 06/17/17 04:00 84 06/17/17 02:39 82 20 30 06/17/17 00:51 88 16 45 06/17/17 00:00 98.4 73 16 124/65 100 Mechanical Ventilator 45 06/17/17 00:00 44 06/17/17 00:00 79 06/17/17 00:00 98.4 73 16 124/65 100 Mechanical Ventilator 45 06/16/17 22:51 83 20 45 06/16/17 22:50 63 18 Mechanical Ventilator 44 06/16/17 21:51 78 126/59 06/16/17 21:04 86 20 45 06/16/17 20:00 44 06/16/17 20:00 99.9 78 20 126/59 100 Mechanical Ventilator 45 06/16/17 20:00 79 06/16/17 19:02 82 20 45 06/16/17 18:00 70 06/16/17 17:15 80 20 45 06/16/17 16:00 99.0 69 20 109/48 100 Mechanical Ventilator 44 06/16/17 16:00 44 06/16/17 15:09 72 20 44 Intake and Output 06/17/17 06/18/17 19:00 07:00 Intake Total 200 ml Balance 200 ml Tube Feeding 80 ml Other 120 ml # Bowel Movements 1 Laboratory Tests 06/17/17 02:45: White Blood Count 14.0H, Red Blood Count 3.19L, Hemoglobin 9.3L, Hematocrit 28.0L, Mean Corpuscular Volume 88, Mean Corpuscular Hemoglobin 29.1, Mean Corpuscular Hemoglobin Concent 33.2, Red Cell Distribution Width 16.5H, Platelet Count 435, Mean Platelet Volume 4.8L, Neutrophils (%) (Auto) 77.7H, Lymphocytes (%) (Auto) 14.5L, Monocytes (%) (Auto) 6.8, Eosinophils (%) (Auto) 0.5, Basophils (%) (Auto) 0.5 Height (Feet): 5 Height (Inches): 7.00 Weight (Pounds): 175 General Appearance: WD/WN, alert Neck: supple Cardiovascular: regular rhythm Respiratory/Chest: chest wall non-tender, lungs clear, normal breath sounds, no respiratory distress Abdomen: normal bowel sounds, non tender, soft, no organomegaly Edema: no edema noted Arm (L), no edema noted Arm (R), no edema noted Leg (L), no edema noted Leg (R), no edema noted Pedal (L), no edema noted Pedal (R), no edema noted Generalized WENDIE CASTELLANOS Jun 17, 2017 13:35
[2017-06-17 16:00] VITALS: BP 126/63
[2017-06-17 20:00] VITALS: BP 117/87
--- NOTE | 2017-06-17 22:00 | General Progress Note ---
Assessment/Plan Assessment/Plan Assessment - Dark NGT aspirate - Family decline endoscopy due tp patient poor health - C Diff colitis - on Rx - Resp failure, s/p trach - dysphagia, s/p PEG - COPD Recommendations - monitor CBC - Rx C diff - Elevate HOB - PPI - no plans for EGD per family request - continue / advance TF Subjective Allergies: Coded Allergies: No Known Allergies (Unverified , 01/07/17) Subjective seen earlier today tolerating TF NAD Objective Last 24 Hour Vital Signs Date Time Temp Pulse Resp B/P (MAP) Pulse Ox O2 Delivery O2 Flow Rate FiO2 06/17/17 21:24 74 18 30 06/17/17 21:15 75 117/87 06/17/17 20:04 73 18 30 06/17/17 17:03 70 18 30 06/17/17 16:00 69 06/17/17 16:00 98.7 70 18 126/63 100 Mechanical Ventilator 30 06/17/17 16:00 30 06/17/17 15:14 66 18 30 06/17/17 12:55 55 22 30 06/17/17 12:47 67 06/17/17 12:00 97.6 69 20 103/44 100 Mechanical Ventilator 30 06/17/17 12:00 30 06/17/17 11:23 67 18 30 06/17/17 09:30 84 112/56 06/17/17 09:04 84 22 30 06/17/17 08:00 98.6 78 21 112/56 100 Mechanical Ventilator 30 06/17/17 08:00 30 06/17/17 08:00 78 06/17/17 06:51 77 20 30 06/17/17 04:57 79 19 30 06/17/17 04:00 98.2 86 20 116/61 100 Mechanical Ventilator 30 06/17/17 04:00 30 06/17/17 04:00 84 06/17/17 02:39 82 20 30 06/17/17 00:51 88 16 45 06/17/17 00:00 98.4 73 16 124/65 100 Mechanical Ventilator 45 06/17/17 00:00 44 06/17/17 00:00 79 06/17/17 00:00 98.4 73 16 124/65 100 Mechanical Ventilator 45 06/16/17 22:51 83 20 45 06/16/17 22:50 63 18 Mechanical Ventilator 44 Intake and Output 10/11/17 10/12/17 19:00 07:00 Intake Total 1560 ml Output Total 500 ml Balance 1060 ml Intake Free Water 100 ml IV Total 1100 ml Tube Feeding 240 ml Other 120 ml Output Urine Total 500 ml # Bowel Movements 4 Laboratory Tests 06/17/17 02:45: White Blood Count 14.0H, Red Blood Count 3.19L, Hemoglobin 9.3L, Hematocrit 28.0L, Mean Corpuscular Volume 88, Mean Corpuscular Hemoglobin 29.1, Mean Corpuscular Hemoglobin Concent 33.2, Red Cell Distribution Width 16.5H, Platelet Count 435, Mean Platelet Volume 4.8L, Neutrophils (%) (Auto) 77.7H, Lymphocytes (%) (Auto) 14.5L, Monocytes (%) (Auto) 6.8, Eosinophils (%) (Auto) 0.5, Basophils (%) (Auto) 0.5 Height (Feet): 5 Height (Inches): 7.00 Weight (Pounds): 175 Objective Debilitated elderly L man NCAT supple CTA RRR Soft no edema OBS PRABHUJAKOBJOSÉ MIGUELHITESH Jun 17, 2017 22:00
[2017-06-18] VITALS: BP 112/46
[2017-06-18 04:00] VITALS: BP 107/49
[2017-06-18] MEDS: metroNIDAZOLE 500mg tab ORAL SCH ×2 (05:37→14:17)
[2017-06-18] MEDS: D5NS 1,000 ML IV SCH ×2 (05:37→17:00)
[2017-06-18 07:05] LABS: ANION GAP 11 (5-15); CALCIUM 7.6 MG/DL (8.5-10.1); CARBON DIOXIDE 21 MMOL/L (21-32); CHLORIDE 113 MMOL/L (98-107); CREATININE 1.1 MG/DL (0.55-1.30); POTASSIUM 3.2 MMOL/L (3.5-5.1); SODIUM 145 MMOL/L (136-145)
[2017-06-18 07:08] LABS: BASOPHILS % (AUTO) 0.3 % (0.0-2.0); EOSINOPHILS % (AUTO) 0.5 % (0.0-3.0); LYMPHOCYTES % (AUTO) 15.8 % (20.0-45.0); MEAN CORPUSCULAR HEMOGLOBIN 27.7 PG (27.0-31.0); MEAN CORPUSCULAR HGB CONC 31.2 G/DL (32.0-36.0); MEAN CORPUSCULAR VOLUME 89 FL (80-99); MEAN PLATELET VOLUME 4.7 FL (6.5-10.1); MONOCYTES % (AUTO) 4.8 % (1.0-10.0); NEUTROPHILS % (AUTO) 78.7 % (45.0-75.0); PLATELET COUNT 452 K/UL (150-450); RED CELL DISTRIBUTION WIDTH 17.1 % (11.6-14.8); WHITE BLOOD COUNT 11.2 K/UL (4.8-10.8)
--- NOTE | 2017-06-18 07:52 | General Progress Note ---
Assessment/Plan Problem List: (1) Shock ICD Codes: R57.9 - Shock, unspecified SNOMED: 43877014 (2) persistant coma , probably severe anoxic/metabolic encephalopathy (3) Pacemaker ICD Codes: Z95.0 - Presence of cardiac pacemaker SNOMED: 449953422, 922713346 (4) Respiratory failure ICD Codes: J96.90 - Respiratory failure, unspecified, unspecified whether with hypoxia or hypercapnia SNOMED: 451998886 (5) Severe sepsis ICD Codes: A41.9 - Sepsis, unspecified organism; R65.20 - Severe sepsis without septic shock SNOMED: 40116822 (6) Dehydration ICD Codes: E86.0 - Dehydration SNOMED: 31432251 (7) Nausea & vomiting ICD Codes: R11.2 - Nausea with vomiting, unspecified SNOMED: 33185850 Status: stable, progressing Assessment/Plan iv abx per id vent resp care gt feeds monitor for bleeding d/w dtr. monitor h/h transfuse prn dc when cleared by all Subjective ROS Limited/Unobtainable: Yes Constitutional: Reports: malaise, weakness HEENT: Reports: no symptoms Cardiovascular: Reports: no symptoms Respiratory: Reports: no symptoms Gastrointestinal/Abdominal: Reports: diarrhea Genitourinary: Reports: no symptoms Neurologic/Psychiatric: Reports: pre-existing deficit Endocrine: Reports: no symptoms Hematologic/Lymphatic: Reports: anemia Allergies: Coded Allergies: No Known Allergies (Unverified , 01/07/17) All Systems: reviewed and negative except above Subjective no events. w/o complaints. no fever or chills. less diarrhea. ID noted. cultures noted. on the vent. awake but does not follow commands Objective Last 24 Hour Vital Signs Date Time Temp Pulse Resp B/P (MAP) Pulse Ox O2 Delivery O2 Flow Rate FiO2 06/18/17 05:18 70 20 30 06/18/17 04:00 79 06/18/17 04:00 98.2 76 20 107/49 99 Mechanical Ventilator 30 06/18/17 03:51 30 06/18/17 02:36 70 20 30 06/18/17 01:18 75 20 30 06/18/17 00:00 30 06/18/17 00:00 71 06/18/17 00:00 97.5 72 19 112/46 99 Mechanical Ventilator 30 06/17/17 22:52 74 18 30 06/17/17 22:51 65 20 Mechanical Ventilator 30 06/17/17 21:24 74 18 30 06/17/17 21:15 75 117/87 06/17/17 20:04 73 18 30 06/17/17 20:00 30 06/17/17 20:00 97.8 75 24 117/87 100 Mechanical Ventilator 30 06/17/17 20:00 76 06/17/17 17:03 70 18 30 06/17/17 16:00 69 06/17/17 16:00 98.7 70 18 126/63 100 Mechanical Ventilator 30 06/17/17 16:00 30 06/17/17 15:14 66 18 30 06/17/17 12:55 55 22 30 06/17/17 12:47 67 06/17/17 12:00 97.6 69 20 103/44 100 Mechanical Ventilator 30 06/17/17 12:00 30 06/17/17 11:23 67 18 30 06/17/17 09:30 84 112/56 06/17/17 09:04 84 22 30 06/17/17 08:00 98.6 78 21 112/56 100 Mechanical Ventilator 30 06/17/17 08:00 30 06/17/17 08:00 78 Laboratory Tests 06/18/17 03:35: White Blood Count 11.2H, Red Blood Count 3.40L, Hemoglobin 9.4L, Hematocrit 30.2L, Mean Corpuscular Volume 89, Mean Corpuscular Hemoglobin 27.7, Mean Corpuscular Hemoglobin Concent 31.2L, Red Cell Distribution Width 17.1H, Platelet Count 452H, Mean Platelet Volume 4.7L, Neutrophils (%) (Auto) 78.7H, Lymphocytes (%) (Auto) 15.8L, Monocytes (%) (Auto) 4.8, Eosinophils (%) (Auto) 0.5, Basophils (%) (Auto) 0.3, Sodium Level 145, Potassium Level 3.2L, Chloride Level 113H, Carbon Dioxide Level 21, Anion Gap 11, Blood Urea Nitrogen 44H, Creatinine 1.1, Estimat Glomerular Filtration Rate , Glucose Level 199H, Calcium Level 7.6L, Magnesium Level 2.0 Height (Feet): 5 Height (Inches): 7.00 Weight (Pounds): 175 Objective General Appearance: WD/WN, alert Neck: supple Cardiovascular: regular rhythm Respiratory/Chest: chest wall non-tender, lungs clear, normal breath sounds, no respiratory distress Abdomen: normal bowel sounds, non tender, soft, no organomegaly Edema: no edema noted Arm (L), no edema noted Arm (R), no edema noted Leg (L), no edema noted Leg (R), no edema noted Pedal (L), no edema noted Pedal (R), no edema noted Generalized WENDIE CASTELLANOS Jun 18, 2017 07:52
[2017-06-18 08:00] VITALS: BP 145/72
--- NOTE | 2017-06-18 08:56 | Nephrology Progress Note ---
Assessment/Plan Plan ALE--resolved . stable to dc from renal stand point Subjective Subjective No acute event Objective Objective Last 24 Hour Vital Signs Date Time Temp Pulse Resp B/P (MAP) Pulse Ox O2 Delivery O2 Flow Rate FiO2 06/18/17 08:35 30 06/18/17 07:12 81 20 30 06/18/17 05:18 70 20 30 06/18/17 04:00 79 06/18/17 04:00 98.2 76 20 107/49 99 Mechanical Ventilator 30 06/18/17 03:51 30 06/18/17 02:36 70 20 30 06/18/17 01:18 75 20 30 06/18/17 00:00 30 06/18/17 00:00 71 06/18/17 00:00 97.5 72 19 112/46 99 Mechanical Ventilator 30 06/17/17 22:52 74 18 30 06/17/17 22:51 65 20 Mechanical Ventilator 30 06/17/17 21:24 74 18 30 06/17/17 21:15 75 117/87 06/17/17 20:04 73 18 30 06/17/17 20:00 30 06/17/17 20:00 97.8 75 24 117/87 100 Mechanical Ventilator 30 06/17/17 20:00 76 06/17/17 17:03 70 18 30 06/17/17 16:00 69 06/17/17 16:00 98.7 70 18 126/63 100 Mechanical Ventilator 30 06/17/17 16:00 30 06/17/17 15:14 66 18 30 06/17/17 12:55 55 22 30 06/17/17 12:47 67 06/17/17 12:00 97.6 69 20 103/44 100 Mechanical Ventilator 30 06/17/17 12:00 30 06/17/17 11:23 67 18 30 06/17/17 09:30 84 112/56 06/17/17 09:04 84 22 30 Laboratory Tests 06/18/17 03:35: White Blood Count 11.2H, Red Blood Count 3.40L, Hemoglobin 9.4L, Hematocrit 30.2L, Mean Corpuscular Volume 89, Mean Corpuscular Hemoglobin 27.7, Mean Corpuscular Hemoglobin Concent 31.2L, Red Cell Distribution Width 17.1H, Platelet Count 452H, Mean Platelet Volume 4.7L, Neutrophils (%) (Auto) 78.7H, Lymphocytes (%) (Auto) 15.8L, Monocytes (%) (Auto) 4.8, Eosinophils (%) (Auto) 0.5, Basophils (%) (Auto) 0.3, Sodium Level 145, Potassium Level 3.2L, Chloride Level 113H, Carbon Dioxide Level 21, Anion Gap 11, Blood Urea Nitrogen 44H, Creatinine 1.1, Estimat Glomerular Filtration Rate , Glucose Level 199H, Calcium Level 7.6L, Magnesium Level 2.0 Height (Feet): 5 Height (Inches): 7.00 Weight (Pounds): 175 Objective trach on vent clear RRR soft, non tender, BS+ no edema ROSS,TORRES Jun 18, 2017 08:56
[2017-06-18] MEDS ORDERED: KCl 10% 40mEq/30ml liquid NG ONE (09:00)
[2017-06-18] MEDS: Docusate 100mg/10ml Liq GT SCH (09:00)
[2017-06-18] MEDS: Multivitamin w/Minerals tab ORAL SCH (09:24)
[2017-06-18] MEDS: Ferrous Sulfate 300 MG/5 ML UDC GT SCH (09:24)
[2017-06-18] MEDS: Metoprolol Tartrate 50mg tab GT SCH (09:25)
[2017-06-18] MEDS: Heparin 5000 units/ml inj SUBQ SCH (09:28)
--- NOTE | 2017-06-18 10:33 | General Progress Note ---
Assessment/Plan Assessment/Plan Assessment - Dark NGT aspirate - Family decline endoscopy due to patient poor health - C Diff colitis - on Rx - Resp failure, s/p trach - dysphagia, s/p PEG - COPD Recommendations - monitor CBC - Rx C diff - Elevate HOB - PPI - no plans for EGD per family request - continue / advance TF Subjective Allergies: Coded Allergies: No Known Allergies (Unverified , 01/07/17) Subjective seen earlier today tolerating TF - up to 40 cc/hr now d/w RN NAD Objective Last 24 Hour Vital Signs Date Time Temp Pulse Resp B/P (MAP) Pulse Ox O2 Delivery O2 Flow Rate FiO2 06/18/17 09:25 75 145/72 06/18/17 08:35 30 06/18/17 08:00 99.7 75 28 145/72 100 Mechanical Ventilator 30 06/18/17 07:12 81 20 30 06/18/17 05:18 70 20 30 06/18/17 04:00 79 06/18/17 04:00 98.2 76 20 107/49 99 Mechanical Ventilator 30 06/18/17 03:51 30 06/18/17 02:36 70 20 30 06/18/17 01:18 75 20 30 06/18/17 00:00 30 06/18/17 00:00 71 06/18/17 00:00 97.5 72 19 112/46 99 Mechanical Ventilator 30 06/17/17 22:52 74 18 30 06/17/17 22:51 65 20 Mechanical Ventilator 30 06/17/17 21:24 74 18 30 06/17/17 21:15 75 117/87 06/17/17 20:04 73 18 30 06/17/17 20:00 30 06/17/17 20:00 97.8 75 24 117/87 100 Mechanical Ventilator 30 06/17/17 20:00 76 06/17/17 17:03 70 18 30 06/17/17 16:00 69 06/17/17 16:00 98.7 70 18 126/63 100 Mechanical Ventilator 30 06/17/17 16:00 30 06/17/17 15:14 66 18 30 06/17/17 12:55 55 22 30 06/17/17 12:47 67 06/17/17 12:00 97.6 69 20 103/44 100 Mechanical Ventilator 30 10/11/17 12:00 30 06/17/17 11:23 67 18 30 Laboratory Tests 06/18/17 03:35: White Blood Count 11.2H, Red Blood Count 3.40L, Hemoglobin 9.4L, Hematocrit 30.2L, Mean Corpuscular Volume 89, Mean Corpuscular Hemoglobin 27.7, Mean Corpuscular Hemoglobin Concent 31.2L, Red Cell Distribution Width 17.1H, Platelet Count 452H, Mean Platelet Volume 4.7L, Neutrophils (%) (Auto) 78.7H, Lymphocytes (%) (Auto) 15.8L, Monocytes (%) (Auto) 4.8, Eosinophils (%) (Auto) 0.5, Basophils (%) (Auto) 0.3, Sodium Level 145, Potassium Level 3.2L, Chloride Level 113H, Carbon Dioxide Level 21, Anion Gap 11, Blood Urea Nitrogen 44H, Creatinine 1.1, Estimat Glomerular Filtration Rate , Glucose Level 199H, Calcium Level 7.6L, Magnesium Level 2.0 Height (Feet): 5 Height (Inches): 7.00 Weight (Pounds): 175 Objective Debilitated elderly L man NCAT supple CTA RRR Soft no edema OBS HITESH BURNS Jun 18, 2017 10:33
[2017-06-18 12:00] VITALS: BP 111/50
--- NOTE | 2017-06-18 12:25 | Infectious Diseases Prog Note ---
Assessment/Plan Assessment/Plan A 1. klebsiella, E.coli UTI 2. c.diff colitis 3. leucocytosis 4. respiratory failure 5. COPD 6. Advanced pressure ulcers P 1. Continue Gentamicin & Flagyl 2. will follow up cultures Subjective ROS Limited/Unobtainable: Yes Gastrointestinal/Abdominal: Reports: diarrhea Neurologic: Reports: other - more alert Allergies: Coded Allergies: No Known Allergies (Unverified , 01/07/17) Objective Vital Signs Last 24 Hour Vital Signs Date Time Temp Pulse Resp B/P (MAP) Pulse Ox O2 Delivery O2 Flow Rate FiO2 06/18/17 11:02 68 23 30 06/18/17 09:25 75 145/72 06/18/17 09:02 64 23 30 06/18/17 08:35 30 06/18/17 08:00 80 06/18/17 08:00 99.7 75 28 145/72 100 Mechanical Ventilator 30 06/18/17 07:12 81 20 30 06/18/17 05:18 70 20 30 06/18/17 04:00 79 06/18/17 04:00 98.2 76 20 107/49 99 Mechanical Ventilator 30 06/18/17 03:51 30 06/18/17 02:36 70 20 30 06/18/17 01:18 75 20 30 06/18/17 00:00 30 06/18/17 00:00 71 06/18/17 00:00 97.5 72 19 112/46 99 Mechanical Ventilator 30 06/17/17 22:52 74 18 30 06/17/17 22:51 65 20 Mechanical Ventilator 30 06/17/17 21:24 74 18 30 06/17/17 21:15 75 117/87 06/17/17 20:04 73 18 30 06/17/17 20:00 30 06/17/17 20:00 97.8 75 24 117/87 100 Mechanical Ventilator 30 06/17/17 20:00 76 06/17/17 17:03 70 18 30 06/17/17 16:00 69 06/17/17 16:00 98.7 70 18 126/63 100 Mechanical Ventilator 30 06/17/17 16:00 30 06/17/17 15:14 66 18 30 06/17/17 12:55 55 22 30 06/17/17 12:47 67 Height (Feet): 5 Height (Inches): 7.00 Weight (Pounds): 175 General Appearance: no acute distress HEENT: status post trach Respiratory/Chest: lungs clear, other - on vetilator Cardiovascular: normal rate, pacemaker/AICD Abdomen: soft, non tender, other - GT feeding Extremities: no edema, other - contracted Skin: ulcers, other - necrotic in lower exterimities Neurologic/Psychiatric: other - opens eyes Microbiology Date/Time Source Procedure Growth Status 06/17/17 03:00 Sacral Wound Gram Stain - Final Resulted 06/17/17 03:00 Wound Culture - Preliminary Gram Negative Bacillus 1 Resulted Laboratory Tests Test 06/18/17 03:35 White Blood Count 11.2 K/UL (4.8-10.8) H Red Blood Count 3.40 M/UL (4.70-6.10) L Hemoglobin 9.4 G/DL (14.2-18.0) L Hematocrit 30.2 % (42.0-52.0) L Mean Corpuscular Volume 89 FL (80-99) Mean Corpuscular Hemoglobin 27.7 PG (27.0-31.0) Mean Corpuscular Hemoglobin Concent 31.2 G/DL (32.0-36.0) L Red Cell Distribution Width 17.1 % (11.6-14.8) H Platelet Count 452 K/UL (150-450) H Mean Platelet Volume 4.7 FL (6.5-10.1) L Neutrophils (%) (Auto) 78.7 % (45.0-75.0) H Lymphocytes (%) (Auto) 15.8 % (20.0-45.0) L Monocytes (%) (Auto) 4.8 % (1.0-10.0) Eosinophils (%) (Auto) 0.5 % (0.0-3.0) Basophils (%) (Auto) 0.3 % (0.0-2.0) Sodium Level 145 MMOL/L (136-145) Potassium Level 3.2 MMOL/L (3.5-5.1) L Chloride Level 113 MMOL/L (98-107) H Carbon Dioxide Level 21 MMOL/L (21-32) Anion Gap 11 (5-15) Blood Urea Nitrogen 44 mg/dL (7-18) H Creatinine 1.1 MG/DL (0.55-1.30) Estimat Glomerular Filtration Rate mL/min (>60) Glucose Level 199 MG/DL (74-106) H Calcium Level 7.6 MG/DL (8.5-10.1) L Magnesium Level 2.0 MG/DL (1.8-2.4) Current Medications Medications (Trade) Dose Ordered Sig/Subhash Route PRN Reason Start Time Stop Time Status Last Admin Dose Admin Acetaminophen (Tylenol) 650 mg Q4H PRN ORAL Mild Pain/Temp > 100.5 06/15/17 08:15 07/15/17 08:14 Atorvastatin Calcium (Lipitor) 10 mg BEDTIME GT 06/15/17 21:00 07/15/17 20:59 06/17/17 21:12 Bisacodyl (Dulcolax) 10 mg DAILYPRN PRN RECTAL Constipation 06/15/17 08:15 07/15/17 08:14 Dextrose/Sodium Chloride 1,000 ml @ 100 mls/hr Q10H IV 06/15/17 09:00 07/15/17 08:59 06/18/17 05:37 Docusate Sodium (Colace) 100 mg DAILY GT 06/15/17 09:00 07/15/17 08:59 Ferrous Sulfate (Feosol) 300 mg DAILY GT 06/15/17 09:00 07/15/17 08:59 06/18/17 09:24 Finasteride (Proscar) 5 mg DAILY ORAL 06/15/17 09:00 07/15/17 08:59 06/18/17 09:25 Gentamicin Sulfate 300 mg/ Sodium Chloride 117.5 ml @ 117.5 mls/ hr Q36H IVPB 06/17/17 13:00 06/20/17 13:59 06/17/17 13:31 Heparin Sodium (Porcine) (Heparin 5000 units/ml) 5,000 units EVERY 12 HOURS SUBQ 06/15/17 09:00 07/15/17 08:59 06/18/17 09:28 Lansoprazole (Prevacid) 30 mg DAILY GT 06/15/17 09:00 07/15/17 08:59 06/18/17 09:24 Magnesium Hydroxide (Mom) 30 ml DAILYPRN PRN GT Constipation 06/15/17 08:15 07/15/17 08:14 Metoprolol Tartrate (Lopressor) 50 mg EVERY 12 HOURS GT 06/15/17 09:00 07/15/17 08:59 06/18/17 09:25 Metronidazole (Flagyl) 500 mg Q8HR ORAL 06/15/17 12:00 06/22/17 11:59 06/18/17 05:37 Multivitamins Therapeutic (Therapeutic Multivitamin) 1 ea DAILY ORAL 06/15/17 09:00 07/15/17 08:59 06/18/17 09:24 Sodium Phosphate (Fleet's Sodium Phosl Enema) 133 ml DAILYPRN PRN RECTAL Constipation 06/15/17 08:15 07/15/17 08:14 ABDOULAYE ALFONSO Jun 18, 2017 12:25
[2017-06-18 16:00] VITALS: BP 110/62
--- NOTE | 2017-06-18 16:34 | Pulmonology Progress Note ---
Assessment/Plan Assessment/Plan IMPRESSION: 1. Acute on chronic renal failure. 2. Lactic acidemia. 3. Leukocytosis, possible sepsis. 4. Respiratory failure, chronic. 5. Possible gastrointestinal bleed. 6. Anemia, possibly due to chronic disease. 7. Chronic encephalopathy. 8. Chronic debility. 9. Multiple pressure ulcers. 10. Paroxysmal atrial fibrillation. 11. Chronic obstructive pulmonary disease. PLAN stabilize IV antibiotics- complete after discharge ID followup noted GI followup without further intervention renal followup and monitor renal function hydration monitor labs ventilator management SNF meds monitor for change suction with caution dc back to SNF today impression, plan, and exam edited and reviewed in detail care discussed with RN Subjective ROS Limited/Unobtainable: Yes Allergies: Coded Allergies: No Known Allergies (Unverified , 01/07/17) Subjective care noted events noted reduced LOC ventilator reviewed full support as is Objective Last 24 Hour Vital Signs Date Time Temp Pulse Resp B/P (MAP) Pulse Ox O2 Delivery O2 Flow Rate FiO2 06/18/17 16:06 30 06/18/17 15:09 68 18 30 06/18/17 13:34 100.0 06/18/17 13:21 60 19 30 06/18/17 12:00 66 06/18/17 12:00 30 06/18/17 12:00 100.9 61 22 111/50 100 Mechanical Ventilator 30 06/18/17 11:02 68 23 30 06/18/17 09:25 75 145/72 06/18/17 09:02 64 23 30 06/18/17 08:35 30 06/18/17 08:00 80 06/18/17 08:00 99.7 75 28 145/72 100 Mechanical Ventilator 30 06/18/17 07:12 81 20 30 06/18/17 05:18 70 20 30 06/18/17 04:00 79 06/18/17 04:00 98.2 76 20 107/49 99 Mechanical Ventilator 30 06/18/17 03:51 30 06/18/17 02:36 70 20 30 06/18/17 01:18 75 20 30 06/18/17 00:00 30 06/18/17 00:00 71 06/18/17 00:00 97.5 72 19 112/46 99 Mechanical Ventilator 30 06/17/17 22:52 74 18 30 06/17/17 22:51 65 20 Mechanical Ventilator 30 06/17/17 21:24 74 18 30 06/17/17 21:15 75 117/87 06/17/17 20:04 73 18 30 06/17/17 20:00 30 06/17/17 20:00 97.8 75 24 117/87 100 Mechanical Ventilator 30 06/17/17 20:00 76 06/17/17 17:03 70 18 30 Intake and Output 06/18/17 06/19/17 19:00 07:00 Intake Total 1480 ml Balance 1480 ml Intake Free Water 50 ml IV Total 800 ml Tube Feeding 390 ml Other 240 ml # Bowel Movements 3 Objective GENERAL: Patient an ill appearing male, overall, chronically debilitated. HEENT: Overall negative. Pupils are sluggish. Tracheostomy midline. Carotid 2+. NECK: Supple. LUNGS: Coarse breath sounds. Moderate air entry. some rhonchi. CARDIAC: Normal S1 and S2, slightly distant without murmurs, rubs or gallops. ABDOMEN: Soft, nontender, and nondistended. Positive bowel sounds. G-tube in place. EXTREMITIES: No cyanosis, clubbing, or significant contractures. NEUROLOGICALLY: Poor mental status. Overall nonverbal. Microbiology Date/Time Source Procedure Growth Status 06/17/17 03:00 Sacral Wound Gram Stain - Final Resulted 06/17/17 03:00 Wound Culture - Preliminary Gram Negative Bacillus 1 Resulted Laboratory Tests 06/18/17 03:35: White Blood Count 11.2H, Red Blood Count 3.40L, Hemoglobin 9.4L, Hematocrit 30.2L, Mean Corpuscular Volume 89, Mean Corpuscular Hemoglobin 27.7, Mean Corpuscular Hemoglobin Concent 31.2L, Red Cell Distribution Width 17.1H, Platelet Count 452H, Mean Platelet Volume 4.7L, Neutrophils (%) (Auto) 78.7H, Lymphocytes (%) (Auto) 15.8L, Monocytes (%) (Auto) 4.8, Eosinophils (%) (Auto) 0.5, Basophils (%) (Auto) 0.3, Sodium Level 145, Potassium Level 3.2L, Chloride Level 113H, Carbon Dioxide Level 21, Anion Gap 11, Blood Urea Nitrogen 44H, Creatinine 1.1, Estimat Glomerular Filtration Rate , Glucose Level 199H, Calcium Level 7.6L, Magnesium Level 2.0 Current Medications Medications (Trade) Dose Ordered Sig/Subhash Route PRN Reason Start Time Stop Time Status Last Admin Dose Admin Acetaminophen (Tylenol) 650 mg Q4H PRN ORAL Mild Pain/Temp > 100.5 06/15/17 08:15 07/15/17 08:14 06/18/17 12:32 Atorvastatin Calcium (Lipitor) 10 mg BEDTIME GT 06/15/17 21:00 07/15/17 20:59 06/17/17 21:12 Bisacodyl (Dulcolax) 10 mg DAILYPRN PRN RECTAL Constipation 06/15/17 08:15 07/15/17 08:14 Dextrose/Sodium Chloride 1,000 ml @ 100 mls/hr Q10H IV 06/15/17 09:00 07/15/17 08:59 06/18/17 05:37 Docusate Sodium (Colace) 100 mg DAILY GT 06/15/17 09:00 07/15/17 08:59 Ferrous Sulfate (Feosol) 300 mg DAILY GT 06/15/17 09:00 07/15/17 08:59 06/18/17 09:24 Finasteride (Proscar) 5 mg DAILY ORAL 06/15/17 09:00 07/15/17 08:59 06/18/17 09:25 Gentamicin Sulfate 300 mg/ Sodium Chloride 117.5 ml @ 117.5 mls/ hr Q36H IVPB 06/17/17 13:00 06/20/17 13:59 06/17/17 13:31 Heparin Sodium (Porcine) (Heparin 5000 units/ml) 5,000 units EVERY 12 HOURS SUBQ 06/15/17 09:00 07/15/17 08:59 06/18/17 09:28 Lansoprazole (Prevacid) 30 mg DAILY GT 06/15/17 09:00 07/15/17 08:59 06/18/17 09:24 Magnesium Hydroxide (Mom) 30 ml DAILYPRN PRN GT Constipation 06/15/17 08:15 07/15/17 08:14 Metoprolol Tartrate (Lopressor) 50 mg EVERY 12 HOURS GT 06/15/17 09:00 07/15/17 08:59 06/18/17 09:25 Metronidazole (Flagyl) 500 mg Q8HR ORAL 06/15/17 12:00 06/22/17 11:59 06/18/17 14:17 Multivitamins Therapeutic (Therapeutic Multivitamin) 1 ea DAILY ORAL 06/15/17 09:00 07/15/17 08:59 06/18/17 09:24 Sodium Phosphate (Fleet's Sodium Phosl Enema) 133 ml DAILYPRN PRN RECTAL Constipation 06/15/17 08:15 07/15/17 08:14 REJI OJEDA Jun 18, 2017 16:34
[2017-06-18] MEDS ORDERED: NS 275ml ONE (17:26)
[2017-06-18] MEDS ORDERED: D5NS 1000ml IV ONE (17:26)
--- NOTE | 2017-06-19 15:44 | Discharge Summary ---
Discharge Summary Hospital Course Date of Admission Jun 15, 2017 at 06:18 Date of Discharge Jun 18, 2017 at 17:44 Admitting Diagnosis nausea, vomiting and dehydration HPI Daniel Kruger is a 82 year old male who was admitted on Jun 15, 2017 at 06: 18 for Nausea,Vomiting And Dehydration Hospital Course [id number] Discharge Discharge Disposition Patient was discharged to SNF/Subacute Facility(03) Discharge Diagnoses: Jeaine Gonzalez NP Jun 19, 2017 15:44
--- NOTE | 2017-06-19 22:45 | Discharge Summary 2 SIG ---
DATE OF ADMISSION: 06/15/2017 DATE OF DISCHARGE: 06/18/2017 CONSULTANTS: 1. Ba Clemente M.D. 2. Alessia Chaves M.D. 3. Rd Flores M.D. 4. Rajeev Carlos M.D. BRIEF HOSPITAL COURSE: The patient is an unfortunate 82-year-old male with history of encephalopathy, chronic obstructive pulmonary disease, chronic respiratory failure, conduction system disease, status post pacemaker, and hypertension, presented from snf facility with complaints of dehydration, fever, and sepsis. On evaluation at the emergency room, he was noted to have a sodium of 128 and BUN of 80. Urine had too numerous to count WBC. He was started on IV hydration and was admitted for further care. He was pancultured and was given aggressive fluid resuscitation and was started on Zosyn and Flagyl. The patient had increased renal function and volume depletion, which eventually improved post rehydration. The patient was ventilator dependent and had a recent G-tube placed. He was continued on ventilator management. He had a dark gastric tube aspirate, possible gastrointestinal bleed. Family declined further endoscopy due to the patient's poor health. Code status was DNR. Urine culture showed growth of Klebsiella MDR and E. coli. He came in with multiple pressure ulcers. Wound culture with growth of Klebsiella, multidrug resistant and gram-negative bacillus. C. diff was positive. Antibiotic was switched to gentamicin and Flagyl. Hemoglobin and hematocrit were monitored. There was a drop in hemoglobin down to 7.8. He was given two units of packed RBC blood transfusion. Post transfusion, hemoglobin and hematocrit were stable. He was eventually discharged back to [facility]. FINAL DIAGNOSES: 1. Acute on chronic renal failure. 2. Lactic acidemia. 3. Leukocytosis, possible sepsis. 4. Chronic respiratory failure, ventilator dependent. 5. Possible gastrointestinal bleed. 6. Anemia, possibly due to chronic disease. 7. Drop in hemoglobin requiring two units of packed RBC blood transfusion. 8. Chronic encephalopathy. 9. Chronic debility. 10. Multiple pressure ulcers, present on admission. 11. Paroxysmal atrial fibrillation. 12. Chronic obstructive pulmonary disease. 13. Klebsiella and Escherichia coli urinary tract infection. 14. Clostridium difficile colitis. 15. Persistent, probably severe anoxic metabolic encephalopathy. 16. Dehydration. DISCHARGE DISPOSITION: The patient was discharged to [facility]. Jona Guerra M.D. I have been assigned to dictate discharge summary on this account and I was not involved in the patient's management. Jeanie Gonzalez N.P. DR: CONSUELO JOB#: [id number] CC: DANIELA
== END 2017-06-18 17:44 | DRG 871 ==
LOC: EDBD 02:56 → EMR 03:25 → EDBEDREQ 05:28 → 2W 06:18
PROC: 5A1945Z Respiratory Ventilation, 24-96 Consecutive Hours (ICD-10-PCS; 2017-06-15)
PROC: 30233N1 Transfusion of Nonautologous Red Blood Cells into Peripheral Vein, Percutaneous Approach (ICD-10-PCS; principal; 2017-06-16)
DX: A41.9 Sepsis, unspecified organism (principal); R40.20 Unspecified coma; R57.9 Shock, unspecified; G93.1 Anoxic brain damage, not elsewhere classified; J96.10 Chronic respiratory failure, unspecified whether with hypoxia or hypercapnia; Z99.11 Dependence on respirator [ventilator] status; N17.9 Acute kidney failure, unspecified; L89.153 Pressure ulcer of sacral region, stage 3; A04.72 Enterocolitis due to Clostridium difficile, not specified as recurrent; K92.2 Gastrointestinal hemorrhage, unspecified; E87.1 Hypo-osmolality and hyponatremia; N39.0 Urinary tract infection, site not specified; Z43.1 Encounter for attention to gastrostomy; L89.322 Pressure ulcer of left buttock, stage 2; L89.220 Pressure ulcer of left hip, unstageable; E86.0 Dehydration; Z43.0 Encounter for attention to tracheostomy; Z93.1 Gastrostomy status; J44.9 Chronic obstructive pulmonary disease, unspecified; Z66 Do not resuscitate; N18.9 Chronic kidney disease, unspecified; Z95.0 Presence of cardiac pacemaker; D63.8 Anemia in other chronic diseases classified elsewhere; L89.90 Pressure ulcer of unspecified site, unspecified stage; B96.20 Unspecified Escherichia coli [E. coli] as the cause of diseases classified elsewhere; B96.1 Klebsiella pneumoniae [K. pneumoniae] as the cause of diseases classified elsewhere; Z86.73 Personal history of transient ischemic attack (TIA), and cerebral infarction without residual deficits; R65.20 Severe sepsis without septic shock; L89.620 Pressure ulcer of left heel, unstageable; L89.610 Pressure ulcer of right heel, unstageable; Z16.24 Resistance to multiple antibiotics
CPT/HCPCS: 36415; 71010; 80048; 80053; 81003; 82550; 82553; 83605; 83735; 84100; 84484; 85007; 85025; 86850; 86900; 86901; 86920; 87040; 87070; 87086; 87181; 87205; 87324; 93005; 94002; 94003; 94664; J8499

== ENCOUNTER 2017-06-30 00:54 | Emergency (ER) | payer MEDICARE, OTHER ==
[2017-06-30] VITALS (8 sets, daily range): BP systolic 94–138; BP diastolic 47–68
[~2017-06-30] VITALS: Ht 177.8 cm; Wt 77.1 kg
[2017-06-30] MEDS ORDERED: METRONIDAZOLE500 MG GT (01:00)
[2017-06-30] MEDS ORDERED: METOPROLOL TART50 MG GT (01:00)
[2017-06-30] MEDS ORDERED: LANSOPRAZOLE30 MG GT (01:00)
[2017-06-30] MEDS ORDERED: HIBICLENS118 ML TP (01:04)
[2017-06-30] MEDS ORDERED: BISACODYL5 MG RECTAL (01:04)
[2017-06-30] MEDS ORDERED: ALBUTEROL2.5 MG/3 M INH (01:04)
[2017-06-30] MEDS ORDERED: COLACE100 MG GT (01:04)
[2017-06-30] MEDS ORDERED: FLEET ENEMA133 ML RECTAL (01:04)
[2017-06-30 01:49] LABS: BASOPHILS % (AUTO) 0.6 % (0.0-2.0); EOSINOPHILS % (AUTO) 0.6 % (0.0-3.0); MEAN CORPUSCULAR HEMOGLOBIN 29.6 PG (27.0-31.0); MEAN CORPUSCULAR VOLUME 90 FL (80-99); MEAN PLATELET VOLUME 5.2 FL (6.5-10.1); MONOCYTES % (AUTO) 7.3 % (1.0-10.0); NEUTROPHILS % (AUTO) 74.5 % (45.0-75.0); PLATELET COUNT 541 K/UL (150-450); RED BLOOD COUNT 2.91 M/UL (4.70-6.10); RED CELL DISTRIBUTION WIDTH 18.6 % (11.6-14.8); WHITE BLOOD COUNT 10.9 K/UL (4.8-10.8)
[2017-06-30 02:11] LABS: INR 1.3 (0.9-1.1); PROTHROMBIN TIME 13.4 SEC (9.30-11.50)
[2017-06-30 02:16] LABS: ALANINE AMINOTRANSFERASE 6 U/L (12-78); ALBUMIN/GLOBULIN RATIO 0.2 (1.0-2.7); ANION GAP 10 mmol/L (5-15); ASPARTATE AMINO TRANSFERASE 20 U/L (15-37); CALCIUM 8.4 MG/DL (8.5-10.1); CARBON DIOXIDE 21 MMOL/L (21-32); CHLORIDE 103 MMOL/L (98-107); SODIUM 133 MMOL/L (136-145); TOTAL PROTEIN 7.5 G/DL (6.4-8.2)
[2017-06-30 02:17] LABS: ABG ALLEN TEST POSITIVE; ABG BASE EXCESS -5.8
[2017-06-30 03:04] LABS: ALANINE AMINOTRANSFERASE 8 U/L (12-78); ALBUMIN/GLOBULIN RATIO 0.2 (1.0-2.7); ANION GAP 10 mmol/L (5-15); ASPARTATE AMINO TRANSFERASE 12 U/L (15-37); CALCIUM 8.4 MG/DL (8.5-10.1); CARBON DIOXIDE 21 MMOL/L (21-32); CHLORIDE 103 MMOL/L (98-107); POTASSIUM 5.5 MMOL/L (3.5-5.1); SODIUM 134 MMOL/L (136-145); TOTAL PROTEIN 7.4 G/DL (6.4-8.2)
[2017-06-30] MEDS ORDERED: Sodium Polystyrene Sulfonate 15gm Powder GT ONE (03:15)
--- NOTE | 2017-06-30 05:49 | Emergency Room Report ---
History of Present Illness General Chief Complaint: Abnormal Labs Source: Medical Record, EMS Present Illness HPI Patient is an 82-year-old male who presented after a decreased blood count. Patient prior history of ventilator and tracheostomy dependence. Patient prior history dementia as well as COPD and G-tube dependence. He was sent in for evaluation of low hemoglobin. The patient recently been hospitalized for sepsis. He had been getting injections of epogen. The patient was noted to have hemoglobin approximately 7 at his facility. Allergies: Coded Allergies: No Known Allergies (Unverified , 01/07/17) Patient History Past Medical History: see triage record, old chart reviewed Reviewed Nursing Documentation: PMH: Agreed, PSxH: Agreed Nursing Documentation-PMH Hx Hypertension: Yes Hx Pacemaker: Yes Hx COPD: Yes - resp failure, trach Hx Diabetes: Yes Hx Cancer: No Hx Gastrointestinal Problems: Yes - G-tube Hx Dementia: Yes Hx Peripheral Neuropathy: Yes Hx Memory Loss: Yes Hx Concentration Difficulty: Yes Hx Speech Problem: Yes Hx Dysphasia: Yes Hx Weakness: Yes Review of Systems All Other Systems: limited - by mental status Physical Exam Vital Signs Date Time Temp Pulse Resp B/P (MAP) Pulse Ox O2 Delivery O2 Flow Rate FiO2 06/30/17 00:46 98.1 89 21 132/67 100 Trach Collar 10.0 06/30/17 00:55 30 General Appearance: alert, non-toxic, mild distress, Chronically Ill ENT: normal pharynx, dry mucus membranes Neck: limited range of motion Respiratory: lungs clear Cardiovascular #1: regular rate, rhythm, no edema Gastrointestinal: non tender, soft Musculoskeletal: decreased range of motion Neurologic: alert, other - nonverbal Skin: other - multiple skin lesions Medical Decision Making Diagnostic Impression: Primary Impression: Anemia Additional Impressions: Hyperkalemia Ventilator dependent Malnutrition ER Course The patient presented for abnormal laboratory testing. Differential diagnoses include as well as to laboratory error, GI bleed, anemia chronic disease, hyperkalemia among others.Because of complexity of patient's case laboratory testing and imaging studies were ordered. Laboratory studies noted for elevated of BUN creatinine consistent with dehydration. Patient started on IV fluids. The patient was noted to have a pulse which she stated the patient was Comfort Care. Laboratory testing was notable for elevated potassium. Repeat laboratory tests showed slight improvement potassium and patient was subsequently given Kayexalate. The patient was noted to have a hemoglobin greater than 8. Transfusion does not appear to be indicated at this time. Patient will be transferred back to his facility for further management Labs Test 06/30/17 01:03 06/30/17 01:15 06/30/17 02:37 06/30/17 05:23 Arterial Blood pH 7.453 (7.350-7.450) Arterial Blood Partial Pressure CO2 25.0 mmHg (35.0-45.0) Arterial Blood Partial Pressure O2 131.5 mmHg (75.0-100.0) Arterial Blood HCO3 17.1 mmol/L (22.0-26.0) Arterial Blood Oxygen Saturation 98.3 % (92.0-98.0) Arterial Blood Base Excess -5.8 Yosvany Test Positive White Blood Count 10.9 K/UL (4.8-10.8) Red Blood Count 2.91 M/UL (4.70-6.10) Hemoglobin 8.6 G/DL (14.2-18.0) Hematocrit 26.1 % (42.0-52.0) Mean Corpuscular Volume 90 FL (80-99) Mean Corpuscular Hemoglobin 29.6 PG (27.0-31.0) Mean Corpuscular Hemoglobin Concent 33.0 G/DL (32.0-36.0) Red Cell Distribution Width 18.6 % (11.6-14.8) Platelet Count 541 K/UL (150-450) Mean Platelet Volume 5.2 FL (6.5-10.1) Neutrophils (%) (Auto) 74.5 % (45.0-75.0) Lymphocytes (%) (Auto) 17.0 % (20.0-45.0) Monocytes (%) (Auto) 7.3 % (1.0-10.0) Eosinophils (%) (Auto) 0.6 % (0.0-3.0) Basophils (%) (Auto) 0.6 % (0.0-2.0) Prothrombin Time 13.4 SEC (9.30-11.50) Prothromb Time International Ratio 1.3 (0.9-1.1) Activated Partial Thromboplast Time 29 SEC (23-33) Anion Gap 10 mmol/L (5-15) Albumin/Globulin Ratio 0.2 (1.0-2.7) Last Vital Signs Date Time Temp Pulse Resp B/P (MAP) Pulse Ox O2 Delivery O2 Flow Rate FiO2 06/30/17 05:18 92 21 122/51 100 Mechanical Ventilator 10.0 30 06/30/17 00:55 98.7 Status: improved Condition: Stable Referrals: REJI OJEDA (PCP) Jurgen Palacio Jun 30, 2017 05:49
[2017-06-30 05:56] LABS: ALANINE AMINOTRANSFERASE 10 U/L (12-78); ALBUMIN/GLOBULIN RATIO 0.2 (1.0-2.7); ANION GAP 10 mmol/L (5-15); ASPARTATE AMINO TRANSFERASE 11 U/L (15-37); CALCIUM 7.8 MG/DL (8.5-10.1); CARBON DIOXIDE 20 MMOL/L (21-32); CHLORIDE 103 MMOL/L (98-107); CREATININE 0.9 MG/DL (0.55-1.30); POTASSIUM 4.7 MMOL/L (3.5-5.1); SODIUM 133 MMOL/L (136-145); TOTAL PROTEIN 6.5 G/DL (6.4-8.2)
--- NOTE | 2017-07-01 15:14 | Cardiology Report ---
APPROVED REPORT EKG Measurement Heart [id number] Normal sinus rhythm Nonspecific ST and T wave abnormality Abnormal ECG
== END 2017-06-30 10:35 ==
LOC: EDBD 00:54 → EMR 01:12
DX: D64.9 Anemia, unspecified (principal); E87.5 Hyperkalemia; Z99.11 Dependence on respirator [ventilator] status; E46 Unspecified protein-calorie malnutrition; Z68.24 Body mass index [BMI] 24.0-24.9, adult; J96.90 Respiratory failure, unspecified, unspecified whether with hypoxia or hypercapnia; I10 Essential (primary) hypertension; F03.90 Unspecified dementia, unspecified severity, without behavioral disturbance, psychotic disturbance, mood disturbance, and anxiety; E11.9 Type 2 diabetes mellitus without complications; Z93.1 Gastrostomy status; J44.9 Chronic obstructive pulmonary disease, unspecified; Z95.0 Presence of cardiac pacemaker; L98.9 Disorder of the skin and subcutaneous tissue, unspecified
CPT/HCPCS: 36415; 36600; 80053; 82803; 85025; 85610; 85730; 86850; 86900; 86901; 87040; 93005; 94002; 94003; 94664; 96360; 99284; J7040

== ENCOUNTER 2017-07-02 21:00 | Inpatient (IN) | payer MEDICARE, OTHER ==
[~2017-07-02] VITALS: Ht 177.8 cm; Wt 73.5 kg
[~2017-07-02 21:00] MED LIST changes: +ALBUTEROL2.5 MG/3 M INH; +BISACODYL5 MG RECTAL; +COLACE100 MG GT; +FLEET ENEMA133 ML RECTAL; +HIBICLENS118 ML TP; +METOPROLOL TART50 MG GT; +METRONIDAZOLE500 MG GT
[2017-07-02 21:05] VITALS: BP 124/62
[2017-07-02 22:08] LABS: HEMATOCRIT 23.9 % (42.0-52.0); HEMOGLOBIN 7.2 G/DL (14.2-18.0); MEAN CORPUSCULAR VOLUME 92 FL (80-99); PLATELET COUNT 485 K/UL (150-450); RED BLOOD COUNT 2.59 M/UL (4.70-6.10); RED CELL DISTRIBUTION WIDTH 18.1 % (11.6-14.8); WHITE BLOOD COUNT 11.1 K/UL (4.8-10.8)
[2017-07-02 22:13] LABS: INR 1.2 (0.9-1.1)
[2017-07-02 22:32] LABS: ALANINE AMINOTRANSFERASE 6 U/L (12-78); ALBUMIN 1.1 G/DL (3.4-5.0); ALBUMIN/GLOBULIN RATIO 0.2 (1.0-2.7); ALKALINE PHOSPHATASE 66 U/L (46-116); ANION GAP 12 mmol/L (5-15); ASPARTATE AMINO TRANSFERASE 11 U/L (15-37); BILIRUBIN,TOTAL 0.4 MG/DL (0.2-1.0); BLOOD UREA NITROGEN 42 mg/dL (7-18); CALCIUM 8.1 MG/DL (8.5-10.1); CARBON DIOXIDE 20 MMOL/L (21-32); CHLORIDE 102 MMOL/L (98-107); CKMB 0.7 NG/ML (0.0-3.6); CREATINE KINASE 27 U/L (26-308); POTASSIUM 5.1 MMOL/L (3.5-5.1); SODIUM 134 MMOL/L (136-145)
[2017-07-02 23:05] VITALS: BP 12/68
[2017-07-03] VITALS (8 sets, daily range): BP systolic 106–132; BP diastolic 44–67
--- NOTE | 2017-07-03 04:30 | Emergency Room Report ---
History of Present Illness General Chief Complaint: Abnormal Labs Source: Family Member, Medical Record Present Illness HPI 82-year-old male, bedbound, PEG tube, trached to vent, coming from long-term for low H&H, reportedly 6.8. No other history able to be obtained Daughter at bedside states that patient has required transfusions in the past Doctors consenting to transfusion Patient is DO NOT RESUSCITATE Allergies: Coded Allergies: No Known Allergies (Unverified , 01/07/17) Patient History Past Medical History: see triage record Past Surgical History: none Pertinent Family History: none Reviewed Nursing Documentation: PMH: Agreed, PSxH: Agreed Nursing Documentation-PMH Past Medical History Deferred: Pt Cognitively Impaired Hx Cardiac Problems: Yes - Afib Hx Hypertension: Yes Hx Pacemaker: Yes Hx Asthma: Yes Hx COPD: Yes Hx Diabetes: Yes Hx Cancer: No Hx Gastrointestinal Problems: Yes Hx Dialysis: Yes Hx Neurological Problems: Yes Hx Dementia: Yes Hx Peripheral Neuropathy: Yes Hx Memory Loss: Yes Hx Concentration Difficulty: Yes Hx Speech Problem: Yes Hx Dysphasia: Yes Hx Weakness: Yes Review of Systems All Other Systems: limited - nonverbal Physical Exam Vital Signs Date Time Temp Pulse Resp B/P (MAP) Pulse Ox O2 Delivery O2 Flow Rate FiO2 07/02/17 21:05 98.7 95 19 124/62 100 Mechanical Ventilator 10.0 30 Sp02 EP Interpretation: reviewed, abnormal - trached, satting 100 on vent General Appearance: other - Chronically ill-appearing elderly male, nonverbal Head: normocephalic, atraumatic Eyes: bilateral eye normal inspection, bilateral eye PERRL, bilateral eye EOMI ENT: other - trached to vent Respiratory: other - Tracheostomy to vent, mechanical breath sounds bilaterally , chest symmetrical Cardiovascular #1: normal inspection, regular rate, rhythm, no edema, normal capillary refill Cardiovascular #2: 2+ radial (R), 2+ radial (L) Gastrointestinal: soft, no guarding, other - peg tube in place, no grimace to deep palpation, no distension Musculoskeletal: other - contractures b/l lower ext Neurologic: other - nonverbal Skin: normal inspection, normal color, no rash, warm/dry, well hydrated, normal turgor Procedures Critical Care Time Critical Care Time 40 minutes of CC time 82-year-old male, respiratory failure, tracheostomy to vent, here for a low H&H PLAN: IV access, labs, type and screen, transfusion Anticipate admission to [facility] CC time also includes review of labs, review of EMR, discussion with family and paperwork from SNF, d/w hospitalist CC could include dosing of pressors, additional Abx CC time does not include procedures Medical Decision Making Diagnostic Impression: Primary Impression: Respiratory failure Additional Impression: Anemia ER Course 82-year-old male came from long-term for low H&H DDX: Anemia Rule out other of a short disturbance, dehydration Plan: Obtain labs, ua, EKG, CXR Transfusion ER course: Transfusion started in the emergency room The patient has remained stable on vent Disposition: Patient is to be admitted to [facility]W hospitalist Dr Guerra Please note that this Emergency Department Report was dictated using Luminescentmedication administration professional technology software, occasionally this can lead to erroneous entry secondary to interpretation by the dictation equipment. EKG Diagnostic Results EP Interpretation: Yes Rate: normal Rhythm: Paced rhythm ST Segments: T-wave inversions 3 and aVF ASA given to patient: No Rhythm Strip EP Interpretation: Yes Rate:93 Rhythm: Paced rhythm Chest X-ray CXR: Ordered: Yes 1 view Indication: Vented EP interpretation: Yes Interpretation: Pacemaker noted left chest Impression: No acute disease Electronically signed by Yaritza Omer MD Laboratory Tests Test 07/02/17 21:33 07/02/17 21:42 Urine Color Pending Urine Appearance Pending Urine pH Pending Urine Specific [place] Pending Urine Protein Pending Urine Glucose (UA) Pending Urine Ketones Pending Urine Occult Blood Pending Urine Nitrite Pending Urine Bilirubin Pending Urine Urobilinogen Pending Urine Leukocyte Esterase Pending White Blood Count 11.1 K/UL (4.8-10.8) H Red Blood Count 2.59 M/UL (4.70-6.10) L Hemoglobin 7.2 G/DL (14.2-18.0) L Hematocrit 23.9 % (42.0-52.0) L Mean Corpuscular Volume 92 FL (80-99) Mean Corpuscular Hemoglobin 27.7 PG (27.0-31.0) Mean Corpuscular Hemoglobin Concent 30.0 G/DL (32.0-36.0) L Red Cell Distribution Width 18.1 % (11.6-14.8) H Platelet Count 485 K/UL (150-450) H Mean Platelet Volume 4.5 FL (6.5-10.1) L Neutrophils (%) (Auto) % (45.0-75.0) Lymphocytes (%) (Auto) % (20.0-45.0) Monocytes (%) (Auto) % (1.0-10.0) Eosinophils (%) (Auto) % (0.0-3.0) Basophils (%) (Auto) % (0.0-2.0) Differential Total Cells Counted 100 Neutrophils % (Manual) 71 % (45-75) Lymphocytes % (Manual) 19 % (20-45) L Monocytes % (Manual) 9 % (1-10) Eosinophils % (Manual) 1 % (0-3) Basophils % (Manual) 0 % (0-2) Band Neutrophils 0 % (0-8) Platelet Estimate Increased H Platelet Morphology Normal Polychromasia 1+ Hypochromasia 1+ Anisocytosis 1+ Prothrombin Time 12.3 SEC (9.30-11.50) H Prothrombin Time INR 1.2 (0.9-1.1) H PTT 26 SEC (23-33) Sodium Level 134 MMOL/L (136-145) L Potassium Level 5.1 MMOL/L (3.5-5.1) Chloride Level 102 MMOL/L (98-107) Carbon Dioxide Level 20 MMOL/L (21-32) L Anion Gap 12 mmol/L (5-15) Blood Urea Nitrogen 42 mg/dL (7-18) H Creatinine 1.0 MG/DL (0.55-1.30) Estimate Glomerular Filtration Rate mL/min (>60) Glucose Level 124 MG/DL (74-106) H Lactic Acid Level 1.30 mmol/L (0.66-2.22) Calcium Level 8.1 MG/DL (8.5-10.1) L Total Bilirubin 0.4 MG/DL (0.2-1.0) Aspartate Amino Transferase (AST) 11 U/L (15-37) L Alanine Aminotransferase (ALT) 6 U/L (12-78) L Alkaline Phosphatase 66 U/L (46-116) Total Creatine Kinase 27 U/L (26-308) Creatine Kinase MB 0.7 NG/ML (0.0-3.6) Creatine Kinase MB Relative Index 2.5 Troponin I 0.031 ng/mL (0.000-0.056) Total Protein 6.9 G/DL (6.4-8.2) Albumin 1.1 G/DL (3.4-5.0) L Globulin 5.8 g/dL Albumin/Globulin Ratio 0.2 (1.0-2.7) L Last Vital Signs Date Time Temp Pulse Resp B/P (MAP) Pulse Ox O2 Delivery O2 Flow Rate FiO2 07/03/17 04:00 10.0 30 07/03/17 04:00 93 07/03/17 03:42 21 07/03/17 02:50 98.4 115/58 100 Mechanical Ventilator Disposition: ADMITTED INPATIENT Condition: Serious Referrals: REJI GUERRA (PCP) Yaritza Omer M.D. Jul 03, 2017 04:30
[2017-07-03] MEDS ORDERED: ACETAMINOP160 MG/5 M ORAL (08:19)
[2017-07-03] MEDS ORDERED: Milk of Magnesia 30ml Ud GT PRN (09:00)
[2017-07-03] MEDS ORDERED: Docusate 100mg cap ORAL SCH (09:00)
[2017-07-03] MEDS ORDERED: Albuterol ud Inhalation HHN PRN (09:00)
[2017-07-03] MEDS ORDERED: Fleet's Enema 133ml RECTAL PRN (09:00)
[2017-07-03] MEDS: Metoprolol Tartrate 50mg tab GT SCH ×2 (09:00→20:35)
--- NOTE | 2017-07-03 09:18 | Consultation ---
Consult Note Consult Note PULMONARY CONSULTATION REFERRING PHYSICIAN: Rajeev Carlos M.D. REASON FOR CONSULTATION: Respiratory failure. REASON FOR ADMISSION: anemia HISTORY OF PRESENT ILLNESS: 82-year-old male with history of multiple medical problems. The patient is Do Not Resuscitate who presents for worsening anemia. The patient was transferred to [facility] emergency room. for transfusion. Family has not wanted aggressive measures. I was consulted to evaluate and recommend further and assist in ventilatory management. The patient was seen and evaluated. The patient was noted to have persistent worsening anemia and has required transfusions in the past The patient is ventilator dependent, did have a recent G tube placed, and the patient has been tolerating feeds. He remains poorly responsive PAST MEDICAL HISTORY: Multiple comorbid conditions including CVA, paroxysmal atrial fibrillation, pacemaker, hypertension, diabetes, anemia, G-tube, tracheostomy, prior decubiti, contractures, and chronic encephalopathy. MEDICATIONS: Reviewed. ALLERGIES: Reviewed. SOCIAL HISTORY: The patient is nonsmoker and nondrinker. Essentially bedbound, ventilator dependent, fully dependent overall. DNR. resides at [place] REVIEW OF SYSTEMS: Unobtainable due to the patient's mental state. PHYSICAL EXAMINATION: GENERAL: Patient an ill appearing male, overall, chronically debilitated. VITAL SIGNS: Currently blood pressure 120/60, pulse 82, respiratory rate 16, saturation 98%, and temperature 98.3. HEENT: Overall negative. Pupils are sluggish. Tracheostomy midline. Carotid 2+. NECK: Supple. LUNGS: Coarse breath sounds. Moderate air entry. Some rhonchi. CARDIAC: Normal S1 and S2, slightly distant without murmurs, rubs or gallops. ABDOMEN: Soft, nontender, and nondistended. Positive bowel sounds. G-tube in place. no HSM EXTREMITIES: No cyanosis, clubbing, or significant contractures. NEUROLOGICALLY: Poor mental status. Overall nonverbal. Laboratory Tests Test 07/02/17 21:33 07/02/17 21:42 Urine Color Pending Urine Appearance Pending Urine pH Pending Urine Specific [place] Pending Urine Protein Pending Urine Glucose (UA) Pending Urine Ketones Pending Urine Occult Blood Pending Urine Nitrite Pending Urine Bilirubin Pending Urine Urobilinogen Pending Urine Leukocyte Esterase Pending White Blood Count 11.1 K/UL (4.8-10.8) H Red Blood Count 2.59 M/UL (4.70-6.10) L Hemoglobin 7.2 G/DL (14.2-18.0) L Hematocrit 23.9 % (42.0-52.0) L Mean Corpuscular Volume 92 FL (80-99) Mean Corpuscular Hemoglobin 27.7 PG (27.0-31.0) Mean Corpuscular Hemoglobin Concent 30.0 G/DL (32.0-36.0) L Red Cell Distribution Width 18.1 % (11.6-14.8) H Platelet Count 485 K/UL (150-450) H Mean Platelet Volume 4.5 FL (6.5-10.1) L Neutrophils (%) (Auto) % (45.0-75.0) Lymphocytes (%) (Auto) % (20.0-45.0) Monocytes (%) (Auto) % (1.0-10.0) Eosinophils (%) (Auto) % (0.0-3.0) Basophils (%) (Auto) % (0.0-2.0) Differential Total Cells Counted 100 Neutrophils % (Manual) 71 % (45-75) Lymphocytes % (Manual) 19 % (20-45) L Monocytes % (Manual) 9 % (1-10) Eosinophils % (Manual) 1 % (0-3) Basophils % (Manual) 0 % (0-2) Band Neutrophils 0 % (0-8) Platelet Estimate Increased H Platelet Morphology Normal Polychromasia 1+ Hypochromasia 1+ Anisocytosis 1+ Prothrombin Time 12.3 SEC (9.30-11.50) H Prothromb Time International Ratio 1.2 (0.9-1.1) H Activated Partial Thromboplast Time 26 SEC (23-33) Sodium Level 134 MMOL/L (136-145) L Potassium Level 5.1 MMOL/L (3.5-5.1) Chloride Level 102 MMOL/L (98-107) Carbon Dioxide Level 20 MMOL/L (21-32) L Anion Gap 12 mmol/L (5-15) Blood Urea Nitrogen 42 mg/dL (7-18) H Creatinine 1.0 MG/DL (0.55-1.30) Estimat Glomerular Filtration Rate mL/min (>60) Glucose Level 124 MG/DL (74-106) H Lactic Acid Level 1.30 mmol/L (0.66-2.22) Calcium Level 8.1 MG/DL (8.5-10.1) L Total Bilirubin 0.4 MG/DL (0.2-1.0) Aspartate Amino Transf (AST/SGOT) 11 U/L (15-37) L Alanine Aminotransferase (ALT/SGPT) 6 U/L (12-78) L Alkaline Phosphatase 66 U/L (46-116) Total Creatine Kinase 27 U/L (26-308) Creatine Kinase MB 0.7 NG/ML (0.0-3.6) Creatine Kinase MB Relative Index 2.5 Troponin I 0.031 ng/mL (0.000-0.056) Total Protein 6.9 G/DL (6.4-8.2) Albumin 1.1 G/DL (3.4-5.0) L Globulin 5.8 g/dL Albumin/Globulin Ratio 0.2 (1.0-2.7) L IMPRESSION: 1. chronic renal failure. 2. Anemia 3. Prior sepsis. 4. Respiratory failure, chronic. 5. Possible gastrointestinal bleed. 6. Anemia, possibly due to chronic disease. 7. Chronic encephalopathy. 8. Chronic debility. 9. Multiple pressure ulcers. 10. Paroxysmal atrial fibrillation. 11. Chronic obstructive pulmonary disease. PLAN care noted respiratory care Ventilatory support SNF meds supportive care suction no wean oxygen therapy transfuse and dc in am if stable prognosis guarded REJI OJEDA Jul 03, 2017 09:18
--- NOTE | 2017-07-03 10:51 | Diagnostic Imaging Report ---
Indication: PAIN Technique: One view of the chest Comparison: 06/15/2017 Findings: Interstitial congestion appears slightly increased from previously. There is slight indistinctness to the hemidiaphragms bilaterally, suspect bilateral small pleural effusions. The heart size is normal. There is a left chest pacemaker again demonstrated. Tracheostomy remains. Impression: Bilateral interstitial congestion, slightly increased from prior exam of 06/15/2017 Suspect small bilateral pleural effusions
--- NOTE | 2017-07-03 16:30 | History and Physical Report ---
DATE OF ADMISSION: 07/02/2017 CHIEF COMPLAINT: Anemia, rule out acute gastrointestinal bleed. HISTORY OF PRESENT ILLNESS: The patient is an unfortunate 82-year-old male. He has a history of dementia, encephalopathy, conduction system disease status post pacemaker, hypertension, anemia and chronic kidney disease, discharge from a subacute senior care facility because of abnormal laboratories, specifically low hemoglobin. The patient has had prior episodes of anemia, etiology which is unclear. He has had no obvious bleeding. On evaluation in the emergency room, the repeat hemoglobin was 7.2. He is currently being transfused. He is nonverbal at baseline. He is unable to provide any history. PAST MEDICAL HISTORY: As above. PAST SURGICAL HISTORY: Pacemaker. MEDICATIONS: Current medications reconciled and reviewed. ALLERGIES: None. SOCIAL HISTORY: There is no known history of tobacco, ethanol, or drugs. FAMILY HISTORY: None. REVIEW OF SYSTEMS: Unobtainable, as the patient is confused. PHYSICAL EXAMINATION: GENERAL: The patient is a well-developed chronically ill-appearing male. He is currently awake, but does not follow commands. VITAL SIGNS: Temperature 98.2 degrees, pulse 82, respirations 20, and blood pressure 132/67. NECK: Supple. There is no jugular venous distention. HEART: Regular rate and rhythm. LUNGS: Lungs are clear. ABDOMEN: Soft, nontender and nondistended. EXTREMITIES: Without clubbing, cyanosis, or edema. LABORATORY AND DIAGNOSTIC DATA: White count 11, hemoglobin 7.2, hematocrit 23. Sodium 134 and potassium 5. Lactic acid was 1.3. Troponin was negative. Coagulations were normal. ASSESSMENT: This is a pleasant male with multiple medical problems including history of encephalopathy, chronic respiratory failure, anemia, chronic kidney disease, and conduction system disease status post pacemaker admitted with problems 1. Anemia. 2. Acute gastrointestinal bleed. 3. Chronic respiratory failure. 4. Encephalopathy. 5. History of conduction system disease status post pacemaker. PLAN: Transfuse hemoglobin greater than 8.5. Check stool occult blood. Check iron panel. Continue vent support respiratory treatments. Pulmonary consultation will be obtained. Rajeev Carlos M.D. DR: GIOVANY JOB#: [id number] CC:
[2017-07-03] MEDS: Acetaminophen 650mg/20.3ml GT PRN (20:36)
[2017-07-04] VITALS: BP 117/57
[2017-07-04 04:00] VITALS: BP 126/64
[2017-07-04 05:00] LABS: BASOPHILS % (AUTO) 0.5 % (0.0-2.0); EOSINOPHILS % (AUTO) 1.1 % (0.0-3.0); HEMATOCRIT 31.8 % (42.0-52.0); HEMOGLOBIN 10.1 G/DL (14.2-18.0); LYMPHOCYTES % (AUTO) 16.3 % (20.0-45.0); MEAN CORPUSCULAR VOLUME 89 FL (80-99); MONOCYTES % (AUTO) 5.3 % (1.0-10.0); NEUTROPHILS % (AUTO) 76.8 % (45.0-75.0); PLATELET COUNT 467 K/UL (150-450); RED BLOOD COUNT 3.57 M/UL (4.70-6.10); RED CELL DISTRIBUTION WIDTH 17.6 % (11.6-14.8); WHITE BLOOD COUNT 10.8 K/UL (4.8-10.8)
[2017-07-04 08:12] VITALS: BP 112/53
[2017-07-04] MEDS: Docusate 100mg/10ml Liq NG SCH (09:27)
[2017-07-04] MEDS: Acetaminophen 650mg/20.3ml GT PRN (09:27)
[2017-07-04] MEDS: Metoprolol Tartrate 50mg tab GT SCH ×2 (09:27→21:00)
--- NOTE | 2017-07-04 10:21 | Pulmonology Progress Note ---
Assessment/Plan Assessment/Plan IMPRESSION: 1. chronic renal failure. 2. Anemia 3. Prior sepsis. 4. Respiratory failure, chronic. 5. Possible gastrointestinal bleed. 6. Anemia, possibly due to chronic disease. 7. Chronic encephalopathy. 8. Chronic debility. 9. Multiple pressure ulcers. 10. Paroxysmal atrial fibrillation. 11. Chronic obstructive pulmonary disease. 12. bacteremia PLAN care noted respiratory care Ventilatory support SNF meds supportive care suction start Vanco IV no wean oxygen therapy transfused hold dc pending cultures and podiatry prognosis guarded Subjective ROS Limited/Unobtainable: Yes Allergies: Coded Allergies: No Known Allergies (Unverified , 01/07/17) Subjective bcx positive podiatry called Objective Last 24 Hour Vital Signs Date Time Temp Pulse Resp B/P (MAP) Pulse Ox O2 Delivery O2 Flow Rate FiO2 07/04/17 09:57 101.1 07/04/17 09:27 76 112/53 07/04/17 08:44 78 20 30 07/04/17 08:12 101.1 76 21 112/53 99 Mechanical Ventilator 30 07/04/17 08:00 30 07/04/17 08:00 80 07/04/17 06:45 75 22 30 07/04/17 05:10 72 21 30 07/04/17 04:00 30 07/04/17 04:00 81 07/04/17 04:00 98.0 79 21 126/64 100 Mechanical Ventilator 30 07/04/17 03:23 88 19 30 07/04/17 01:00 70 19 30 07/04/17 00:00 98.3 69 19 117/57 99 Mechanical Ventilator 30 07/04/17 00:00 80 07/03/17 23:25 85 20 30 07/03/17 21:36 99.0 07/03/17 21:09 96 25 30 07/03/17 20:35 92 122/67 07/03/17 20:00 30 07/03/17 20:00 103 07/03/17 20:00 100.6 92 20 122/67 97 Mechanical Ventilator 30 07/03/17 19:13 95 24 30 07/03/17 18:05 98.7 07/03/17 17:30 83 22 30 07/03/17 16:00 30 07/03/17 16:00 100.0 110 20 109/58 99 Mechanical Ventilator 07/03/17 16:00 98 07/03/17 14:35 87 22 30 07/03/17 12:52 83 22 30 07/03/17 12:00 99.0 102 25 120/61 99 Mechanical Ventilator 30 07/03/17 12:00 97 07/03/17 12:00 30 07/03/17 11:08 92 18 30 Intake and Output 07/04/17 07/05/17 19:00 07:00 # Bowel Movements 1 Microbiology Date/Time Source Procedure Growth Status 07/02/17 21:42 Blood Blood Culture - Preliminary Gram Positive Cocci Resulted 07/02/17 21:20 Blood Blood Culture - Preliminary Gram Positive Cocci Resulted Laboratory Tests 07/04/17 04:40: White Blood Count 10.8, Red Blood Count 3.57L, Hemoglobin 10.1#L, Hematocrit 31.8#L, Mean Corpuscular Volume 89, Mean Corpuscular Hemoglobin 28.4, Mean Corpuscular Hemoglobin Concent 31.9L, Red Cell Distribution Width 17.6H, Platelet Count 467H, Mean Platelet Volume 4.9L, Neutrophils (%) (Auto) 76.8H, Lymphocytes (%) (Auto) 16.3L, Monocytes (%) (Auto) 5.3, Eosinophils (%) (Auto) 1.1, Basophils (%) (Auto) 0.5 Current Medications Medications (Trade) Dose Ordered Sig/Subhash Route PRN Reason Start Time Stop Time Status Last Admin Dose Admin Acetaminophen (Tylenol) 640 mg PRN PRN GT Mild Pain (Pain Scale 1-3) 07/03/17 09:00 08/02/17 08:59 07/04/17 09:27 Albuterol Sulfate (Proventil) 2.5 mg Q6H PRN HHN Shortness of Breath 07/03/17 09:00 07/08/17 08:59 Atorvastatin Calcium (Lipitor) 10 mg BEDTIME GT 07/03/17 21:00 08/02/17 20:59 07/03/17 20:35 Bisacodyl (Dulcolax) 10 mg PRN PRN RECTAL Constipation 07/03/17 09:00 08/02/17 08:59 Collagenase (Santyl) 1 applic DAILY TOPIC 07/04/17 09:00 08/03/17 08:59 07/04/17 09:27 Docusate Sodium (Colace) 100 mg DAILY NG 07/04/17 09:15 08/03/17 09:14 07/04/17 09:27 Lansoprazole (Prevacid) 30 mg DAILY GT 07/03/17 09:00 08/02/17 08:59 07/04/17 09:27 Magnesium Hydroxide (Mom) 30 ml DAILY PRN GT PRN 07/03/17 09:00 08/02/17 08:59 Metoprolol Tartrate (Lopressor) 50 mg EVERY 12 HOURS GT 07/03/17 09:00 08/02/17 08:59 07/04/17 09:27 Sodium Phosphate (Fleet's Sodium Phosl Enema) 133 ml PRN PRN RECTAL Constipation 07/03/17 09:00 08/02/17 08:59 REJI OJEDA Jul 04, 2017 10:21
[2017-07-04] MEDS ORDERED: Vancomycin 1.5 GM/D5W 250ML IVPB ONE (11:30)
--- NOTE | 2017-07-04 11:43 | General Progress Note ---
Assessment/Plan Problem List: (1) Abnormal laboratory test ICD Codes: R89.9 - Unspecified abnormal finding in specimens from other organs , systems and tissues SNOMED: 726331342 (2) toxic metabolic encephalopathy 2/2 infecion/metabolc derangement (3) Pacemaker ICD Codes: Z95.0 - Presence of cardiac pacemaker SNOMED: 544991422, 786198350 (4) Anemia ICD Codes: D64.9 - Anemia, unspecified SNOMED: 037772567 (5) Bacteremia ICD Codes: R78.81 - Bacteremia SNOMED: 9715517 (6) Sepsis ICD Codes: A41.9 - Sepsis, unspecified organism SNOMED: 09766277 Status: stable Assessment/Plan iv abx id eval vent resp care monitor h/h transfuse as needed Subjective ROS Limited/Unobtainable: Yes Constitutional: Reports: malaise, weakness HEENT: Reports: no symptoms Cardiovascular: Reports: no symptoms Respiratory: Reports: cough, sputum Gastrointestinal/Abdominal: Reports: difficulty swallowing Genitourinary: Reports: no symptoms Neurologic/Psychiatric: Reports: pre-existing deficit Endocrine: Reports: no symptoms Hematologic/Lymphatic: Reports: anemia Allergies: Coded Allergies: No Known Allergies (Unverified , 01/07/17) All Systems: reviewed and negative except above Subjective stable. 2/2 blood cultures positive for gnr. no bleeding noted. Objective Last 24 Hour Vital Signs Date Time Temp Pulse Resp B/P (MAP) Pulse Ox O2 Delivery O2 Flow Rate FiO2 07/04/17 10:49 74 19 30 07/04/17 09:57 101.1 07/04/17 09:27 76 112/53 07/04/17 08:44 78 20 30 07/04/17 08:12 101.1 76 21 112/53 99 Mechanical Ventilator 30 07/04/17 08:00 30 07/04/17 08:00 80 07/04/17 06:45 75 22 30 07/04/17 05:10 72 21 30 07/04/17 04:00 30 07/04/17 04:00 81 07/04/17 04:00 98.0 79 21 126/64 100 Mechanical Ventilator 30 07/04/17 03:23 88 19 30 07/04/17 01:00 70 19 30 07/04/17 00:00 98.3 69 19 117/57 99 Mechanical Ventilator 30 07/04/17 00:00 80 07/03/17 23:25 85 20 30 07/03/17 21:36 99.0 07/03/17 21:09 96 25 30 07/03/17 20:35 92 122/67 07/03/17 20:00 30 07/03/17 20:00 103 07/03/17 20:00 100.6 92 20 122/67 97 Mechanical Ventilator 30 07/03/17 19:13 95 24 30 07/03/17 18:05 98.7 07/03/17 17:30 83 22 30 07/03/17 16:00 30 07/03/17 16:00 100.0 110 20 109/58 99 Mechanical Ventilator 07/03/17 16:00 98 07/03/17 14:35 87 22 30 07/03/17 12:52 83 22 30 07/03/17 12:00 99.0 102 25 120/61 99 Mechanical Ventilator 30 07/03/17 12:00 97 07/03/17 12:00 30 Intake and Output 07/04/17 07/05/17 19:00 07:00 Intake Total 100 ml Balance 100 ml Intake Free Water 50 ml Tube Feeding 50 ml # Bowel Movements 1 Laboratory Tests 07/04/17 04:40: White Blood Count 10.8, Red Blood Count 3.57L, Hemoglobin 10.1#L, Hematocrit 31.8#L, Mean Corpuscular Volume 89, Mean Corpuscular Hemoglobin 28.4, Mean Corpuscular Hemoglobin Concent 31.9L, Red Cell Distribution Width 17.6H, Platelet Count 467H, Mean Platelet Volume 4.9L, Neutrophils (%) (Auto) 76.8H, Lymphocytes (%) (Auto) 16.3L, Monocytes (%) (Auto) 5.3, Eosinophils (%) (Auto) 1.1, Basophils (%) (Auto) 0.5 Height (Feet): 5 Height (Inches): 10.00 Weight (Pounds): 162 General Appearance: WD/WN, lethargic, confused Neck: supple Cardiovascular: normal rate Respiratory/Chest: lungs clear, normal breath sounds, no respiratory distress, no accessory muscle use Abdomen: normal bowel sounds, non tender, soft, no organomegaly, no mass Edema: no edema noted Arm (L), no edema noted Arm (R), no edema noted Leg (L), no edema noted Leg (R), no edema noted Pedal (L), no edema noted Pedal (R), no edema noted Generalized WENDIE CASTELLANOS Jul 04, 2017 11:43
--- NOTE | 2017-07-04 11:43 | General Progress Note ---
Assessment/Plan Problem List: (1) Abnormal laboratory test ICD Codes: R89.9 - Unspecified abnormal finding in specimens from other organs , systems and tissues SNOMED: 647637275 (2) toxic metabolic encephalopathy 2/2 infecion/metabolc derangement (3) Pacemaker ICD Codes: Z95.0 - Presence of cardiac pacemaker SNOMED: 327783828, 694243203 (4) Anemia ICD Codes: D64.9 - Anemia, unspecified SNOMED: 299497222 (5) Bacteremia ICD Codes: R78.81 - Bacteremia SNOMED: 7312483 (6) Sepsis ICD Codes: A41.9 - Sepsis, unspecified organism SNOMED: 76127959 Status: stable Assessment/Plan iv abx id eval vent resp care monitor h/h transfuse as needed Subjective ROS Limited/Unobtainable: Yes Constitutional: Reports: malaise, weakness HEENT: Reports: no symptoms Cardiovascular: Reports: no symptoms Respiratory: Reports: cough, sputum Gastrointestinal/Abdominal: Reports: difficulty swallowing Genitourinary: Reports: no symptoms Neurologic/Psychiatric: Reports: pre-existing deficit Endocrine: Reports: no symptoms Hematologic/Lymphatic: Reports: anemia Allergies: Coded Allergies: No Known Allergies (Unverified , 01/07/17) All Systems: reviewed and negative except above Subjective stable. 2/2 blood cultures positive for gnr. no bleeding noted. Objective Last 24 Hour Vital Signs Date Time Temp Pulse Resp B/P (MAP) Pulse Ox O2 Delivery O2 Flow Rate FiO2 07/04/17 10:49 74 19 30 07/04/17 09:57 101.1 07/04/17 09:27 76 112/53 07/04/17 08:44 78 20 30 07/04/17 08:12 101.1 76 21 112/53 99 Mechanical Ventilator 30 07/04/17 08:00 30 07/04/17 08:00 80 07/04/17 06:45 75 22 30 07/04/17 05:10 72 21 30 07/04/17 04:00 30 07/04/17 04:00 81 07/04/17 04:00 98.0 79 21 126/64 100 Mechanical Ventilator 30 07/04/17 03:23 88 19 30 07/04/17 01:00 70 19 30 07/04/17 00:00 98.3 69 19 117/57 99 Mechanical Ventilator 30 07/04/17 00:00 80 07/03/17 23:25 85 20 30 07/03/17 21:36 99.0 07/03/17 21:09 96 25 30 07/03/17 20:35 92 122/67 07/03/17 20:00 30 07/03/17 20:00 103 07/03/17 20:00 100.6 92 20 122/67 97 Mechanical Ventilator 30 07/03/17 19:13 95 24 30 07/03/17 18:05 98.7 07/03/17 17:30 83 22 30 07/03/17 16:00 30 07/03/17 16:00 100.0 110 20 109/58 99 Mechanical Ventilator 07/03/17 16:00 98 07/03/17 14:35 87 22 30 07/03/17 12:52 83 22 30 07/03/17 12:00 99.0 102 25 120/61 99 Mechanical Ventilator 30 07/03/17 12:00 97 07/03/17 12:00 30 Intake and Output 07/04/17 07/05/17 19:00 07:00 Intake Total 100 ml Balance 100 ml Intake Free Water 50 ml Tube Feeding 50 ml # Bowel Movements 1 Laboratory Tests 07/04/17 04:40: White Blood Count 10.8, Red Blood Count 3.57L, Hemoglobin 10.1#L, Hematocrit 31.8#L, Mean Corpuscular Volume 89, Mean Corpuscular Hemoglobin 28.4, Mean Corpuscular Hemoglobin Concent 31.9L, Red Cell Distribution Width 17.6H, Platelet Count 467H, Mean Platelet Volume 4.9L, Neutrophils (%) (Auto) 76.8H, Lymphocytes (%) (Auto) 16.3L, Monocytes (%) (Auto) 5.3, Eosinophils (%) (Auto) 1.1, Basophils (%) (Auto) 0.5 Height (Feet): 5 Height (Inches): 10.00 Weight (Pounds): 162 General Appearance: WD/WN, lethargic, confused Neck: supple Cardiovascular: normal rate Respiratory/Chest: lungs clear, normal breath sounds, no respiratory distress, no accessory muscle use Abdomen: normal bowel sounds, non tender, soft, no organomegaly, no mass Edema: no edema noted Arm (L), no edema noted Arm (R), no edema noted Leg (L), no edema noted Leg (R), no edema noted Pedal (L), no edema noted Pedal (R), no edema noted Generalized WENDIE CASTELLANOS Jul 04, 2017 11:43
--- NOTE | 2017-07-04 11:43 | General Progress Note ---
Assessment/Plan Problem List: (1) Abnormal laboratory test ICD Codes: R89.9 - Unspecified abnormal finding in specimens from other organs , systems and tissues SNOMED: 685307179 (2) toxic metabolic encephalopathy 2/2 infecion/metabolc derangement (3) Pacemaker ICD Codes: Z95.0 - Presence of cardiac pacemaker SNOMED: 737594064, 388274198 (4) Anemia ICD Codes: D64.9 - Anemia, unspecified SNOMED: 965861077 (5) Bacteremia ICD Codes: R78.81 - Bacteremia SNOMED: 1742463 (6) Sepsis ICD Codes: A41.9 - Sepsis, unspecified organism SNOMED: 73618135 Status: stable Assessment/Plan iv abx id eval vent resp care monitor h/h transfuse as needed Subjective ROS Limited/Unobtainable: Yes Constitutional: Reports: malaise, weakness HEENT: Reports: no symptoms Cardiovascular: Reports: no symptoms Respiratory: Reports: cough, sputum Gastrointestinal/Abdominal: Reports: difficulty swallowing Genitourinary: Reports: no symptoms Neurologic/Psychiatric: Reports: pre-existing deficit Endocrine: Reports: no symptoms Hematologic/Lymphatic: Reports: anemia Allergies: Coded Allergies: No Known Allergies (Unverified , 01/07/17) All Systems: reviewed and negative except above Subjective stable. 2/2 blood cultures positive for gnr. no bleeding noted. Objective Last 24 Hour Vital Signs Date Time Temp Pulse Resp B/P (MAP) Pulse Ox O2 Delivery O2 Flow Rate FiO2 07/04/17 10:49 74 19 30 07/04/17 09:57 101.1 07/04/17 09:27 76 112/53 07/04/17 08:44 78 20 30 07/04/17 08:12 101.1 76 21 112/53 99 Mechanical Ventilator 30 07/04/17 08:00 30 07/04/17 08:00 80 07/04/17 06:45 75 22 30 07/04/17 05:10 72 21 30 07/04/17 04:00 30 07/04/17 04:00 81 07/04/17 04:00 98.0 79 21 126/64 100 Mechanical Ventilator 30 07/04/17 03:23 88 19 30 07/04/17 01:00 70 19 30 07/04/17 00:00 98.3 69 19 117/57 99 Mechanical Ventilator 30 07/04/17 00:00 80 07/03/17 23:25 85 20 30 07/03/17 21:36 99.0 07/03/17 21:09 96 25 30 07/03/17 20:35 92 122/67 07/03/17 20:00 30 07/03/17 20:00 103 07/03/17 20:00 100.6 92 20 122/67 97 Mechanical Ventilator 30 07/03/17 19:13 95 24 30 07/03/17 18:05 98.7 07/03/17 17:30 83 22 30 07/03/17 16:00 30 07/03/17 16:00 100.0 110 20 109/58 99 Mechanical Ventilator 07/03/17 16:00 98 07/03/17 14:35 87 22 30 07/03/17 12:52 83 22 30 07/03/17 12:00 99.0 102 25 120/61 99 Mechanical Ventilator 30 07/03/17 12:00 97 07/03/17 12:00 30 Intake and Output 07/04/17 07/05/17 19:00 07:00 Intake Total 100 ml Balance 100 ml Intake Free Water 50 ml Tube Feeding 50 ml # Bowel Movements 1 Laboratory Tests 07/04/17 04:40: White Blood Count 10.8, Red Blood Count 3.57L, Hemoglobin 10.1#L, Hematocrit 31.8#L, Mean Corpuscular Volume 89, Mean Corpuscular Hemoglobin 28.4, Mean Corpuscular Hemoglobin Concent 31.9L, Red Cell Distribution Width 17.6H, Platelet Count 467H, Mean Platelet Volume 4.9L, Neutrophils (%) (Auto) 76.8H, Lymphocytes (%) (Auto) 16.3L, Monocytes (%) (Auto) 5.3, Eosinophils (%) (Auto) 1.1, Basophils (%) (Auto) 0.5 Height (Feet): 5 Height (Inches): 10.00 Weight (Pounds): 162 General Appearance: WD/WN, lethargic, confused Neck: supple Cardiovascular: normal rate Respiratory/Chest: lungs clear, normal breath sounds, no respiratory distress, no accessory muscle use Abdomen: normal bowel sounds, non tender, soft, no organomegaly, no mass Edema: no edema noted Arm (L), no edema noted Arm (R), no edema noted Leg (L), no edema noted Leg (R), no edema noted Pedal (L), no edema noted Pedal (R), no edema noted Generalized WENDIE CASTELLANOS Jul 04, 2017 11:43
[2017-07-04 11:59] VITALS: BP 108/46
[2017-07-04 16:00] VITALS: BP 116/58
[2017-07-04] MEDS ORDERED: Tubing Blood Filter IV ONE (16:33)
[2017-07-04] MEDS ORDERED: NS 275ml ONE (16:33)
[2017-07-04 20:00] VITALS: BP 118/58
[2017-07-05] VITALS (7 sets, daily range): BP systolic 112–128; BP diastolic 52–73
--- NOTE | 2017-07-05 01:30 | Consultation ---
DATE OF CONSULTATION: 07/04/2017 INFECTIOUS DISEASES CONSULTATION CONSULTING PHYSICIAN: Ba Clemente M.D. REFERRING PHYSICIAN: Rajeev Carlos M.D. REASON FOR CONSULTATION: Sepsis. HISTORY OF PRESENTING ILLNESS: This is an 82-year-old gentleman with history of dementia, encephalopathy, hypertension, conduction system disease, status post pacemaker placement, who was transferred from a shelter facility because of low hemoglobin. He was found to be septic and an Infectious Diseases consultation has been obtained for antibiotics. PAST MEDICAL HISTORY: 1. History of dementia. 2. History of encephalopathy. 3. Conduction system disease, status post pacemaker placement. 4. Hypertension. 5. Anemia. 6. Chronic kidney disease. MEDICATIONS: As an inpatient, the patient is on IV vancomycin, docusate, collagenase, Lipitor, albuterol, Dulcolax, Prevacid, milk of magnesia, metoprolol, and Tylenol. ALLERGIES: No known drug allergies. SOCIAL HISTORY: No history of smoking, alcohol, or drug use. FAMILY HISTORY: Unknown. REVIEW OF SYSTEMS: Unable to obtain currently. PHYSICAL EXAMINATION: VITAL SIGNS: Temperature of 98.6 degrees, T-max of 101.1 degrees, pulse of 63, respiratory rate of 19, blood pressure 108/46, and O2 saturation of 99%. HEENT: Pupils equally reactive to light and accommodation. Mouth appears clean with no thrush. NECK: Supple. No adenopathy. No JVD. Tracheostomy site appears clean. CARDIOVASCULAR: Regular rate and rhythm. No murmurs. LUNGS: Clear to auscultation bilaterally. No crackles. No wheezes. ABDOMEN: Soft and nontender. No organomegaly. G-tube site appears clean. EXTREMITIES: No cyanosis. No clubbing. No edema. Some contractures. LABORATORY AND DIAGNOSTIC DATA: White count of 11.1 on 07/02/2017, on 07/04/2017, white count 10.8; hemoglobin 10.1, hematocrit 31.8, MCV 89, and platelet count of 467,000. Sodium 134, potassium 5.1, chloride 102, bicarbonate 20, BUN 42, creatinine 1, glucose 124, and calcium 8.1. Total bilirubin 0.4, AST 11, ALT 6, and alkaline phosphatase 66. CPK of 27 and CK-MB 0.7. Total protein 6.9. Albumin 1.1. On 07/03/2017, nasal swab was negative for MRSA. On 07/02/2017, blood culture is growing Gram-positive cocci. Chest x-ray showing bilateral interstitial congestion and suspect small bilateral pleural effusions. ASSESSMENT: 1. This is an 82-year-old gentleman with history of conduction system disease, status post pacemaker placement as well as hypertension, who comes in with anemia and is found to have Gram-positive sepsis. The identification is pending. 2. Anemia. 3. Dementia. PLAN: 1. Continue IV vancomycin for now. 2. We will follow up cultures and adjust antibiotics accordingly. 3. We will order a 2D echocardiogram. I would like to thank, Dr. Carlos, for this consultation. Ba Clemente M.D. DR: Jim JOB#: [id number] CC: Rajeev Carlos M.D.
--- NOTE | 2017-07-05 07:57 | Infectious Diseases Prog Note ---
Assessment/Plan Assessment/Plan A; Sepsis Positive blood cultures for CoANS Necrotic pressure ulcer Anemia VDRF CKD P: Continue IV Vancomycin Will follow up TTE Wound care, likely needs amputation Subjective ROS Limited/Unobtainable: Yes Allergies: Coded Allergies: No Known Allergies (Unverified , 01/07/17) Objective Vital Signs Last 24 Hour Vital Signs Date Time Temp Pulse Resp B/P (MAP) Pulse Ox O2 Delivery O2 Flow Rate FiO2 07/05/17 07:17 83 19 30 07/05/17 05:30 79 20 30 07/05/17 04:00 30 07/05/17 04:00 97.9 98 23 123/63 100 Mechanical Ventilator 30 07/05/17 04:00 86 07/05/17 03:10 85 20 30 07/05/17 01:30 82 20 30 07/05/17 00:00 30 07/05/17 00:00 99.8 81 25 112/52 98 Mechanical Ventilator 30 07/05/17 00:00 88 07/04/17 23:05 80 26 30 07/04/17 21:25 76 17 30 07/04/17 21:00 83 118/58 07/04/17 20:00 98.2 83 24 118/58 100 Mechanical Ventilator 30 07/04/17 20:00 83 07/04/17 20:00 30 07/04/17 19:22 79 20 30 07/04/17 16:59 78 26 30 07/04/17 16:00 99.1 79 18 116/58 100 Mechanical Ventilator 30 07/04/17 16:00 78 07/04/17 16:00 30 07/04/17 15:03 72 23 30 07/04/17 12:52 78 25 30 07/04/17 12:00 80 07/04/17 12:00 30 07/04/17 11:59 98.6 63 19 108/46 99 Mechanical Ventilator 30 07/04/17 10:49 74 19 30 07/04/17 09:57 101.1 07/04/17 09:27 76 112/53 07/04/17 08:44 78 20 30 07/04/17 08:12 101.1 76 21 112/53 99 Mechanical Ventilator 30 07/04/17 08:00 30 07/04/17 08:00 80 Height (Feet): 5 Height (Inches): 10.00 Weight (Pounds): 162 HEENT: status post trach Respiratory/Chest: rhonchi - bilaterally, other - on ventilator Cardiovascular: normal rate, pacemaker/AICD Abdomen: soft, non tender, other - GT feeding Extremities: no edema, other - severly contracted Skin: ulcers, other - necrotic pressure ulcers of feet Neurologic/Psychiatric: unresponsiveness Microbiology Date/Time Source Procedure Growth Status 07/02/17 21:42 Blood Blood Culture - Preliminary Staphylococcus Sp Coag Neg Resulted 07/02/17 21:20 Blood Blood Culture - Preliminary Staphylococcus Sp Coag Neg Resulted 07/03/17 02:35 Nasal Nares MRSA Culture - Final NO METHICILLIN RESISTANT STAPH AUREUS... Complete Current Medications Medications (Trade) Dose Ordered Sig/Subhash Route PRN Reason Start Time Stop Time Status Last Admin Dose Admin Acetaminophen (Tylenol) 640 mg PRN PRN GT Mild Pain (Pain Scale 1-3) 07/03/17 09:00 08/02/17 08:59 07/04/17 09:27 Albuterol Sulfate (Proventil) 2.5 mg Q6H PRN HHN Shortness of Breath 07/03/17 09:00 07/08/17 08:59 Atorvastatin Calcium (Lipitor) 10 mg BEDTIME GT 07/03/17 21:00 08/02/17 20:59 07/04/17 20:59 Bisacodyl (Dulcolax) 10 mg PRN PRN RECTAL Constipation 07/03/17 09:00 08/02/17 08:59 Collagenase (Santyl) 1 applic DAILY TOPIC 07/04/17 09:00 08/03/17 08:59 07/04/17 09:27 Docusate Sodium (Colace) 100 mg DAILY NG 07/04/17 09:15 08/03/17 09:14 07/04/17 09:27 Lansoprazole (Prevacid) 30 mg DAILY GT 07/03/17 09:00 08/02/17 08:59 07/04/17 09:27 Magnesium Hydroxide (Mom) 30 ml DAILY PRN GT PRN 07/03/17 09:00 08/02/17 08:59 Metoprolol Tartrate (Lopressor) 50 mg EVERY 12 HOURS GT 07/03/17 09:00 08/02/17 08:59 07/04/17 21:00 Sodium Phosphate (Fleet's Sodium Phosl Enema) 133 ml PRN PRN RECTAL Constipation 07/03/17 09:00 08/02/17 08:59 Vancomycin HCl (Vanco rx to dose) 1 ea DAILY PRN MISC Per rx protocol 07/04/17 10:30 08/03/17 10:29 Vancomycin HCl 1 gm/Dextrose 275 ml @ 183.708 mls/hr Q24H IVPB 07/05/17 11:00 07/10/17 10:59 ABDOULAYE ALFONSO Jul 05, 2017 07:57
[2017-07-05] MEDS: Docusate 100mg/10ml Liq NG SCH (08:26)
[2017-07-05] MEDS: Metoprolol Tartrate 50mg tab GT SCH ×2 (08:27→22:23)
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
[2017-07-05] MEDS ORDERED: Dakin's 0.25% (Half Strength) 16oz TOPIC SCH (09:00)
--- NOTE | 2017-07-05 09:23 | General Progress Note ---
Assessment/Plan Problem List: (1) Abnormal laboratory test ICD Codes: R89.9 - Unspecified abnormal finding in specimens from other organs , systems and tissues SNOMED: 283624214 (2) toxic metabolic encephalopathy 2/2 infecion/metabolc derangement (3) Pacemaker ICD Codes: Z95.0 - Presence of cardiac pacemaker SNOMED: 269451658, 583643857 (4) Anemia ICD Codes: D64.9 - Anemia, unspecified SNOMED: 545505748 (5) Bacteremia ICD Codes: R78.81 - Bacteremia SNOMED: 9586564 (6) Sepsis ICD Codes: A41.9 - Sepsis, unspecified organism SNOMED: 79563572 Status: stable, progressing Assessment/Plan iv abx id eval pending +blood cultures- 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 no bleeding labs pending stable on the vent. no overnite events Objective Last 24 Hour Vital Signs Date Time Temp Pulse Resp B/P (MAP) Pulse Ox O2 Delivery O2 Flow Rate FiO2 07/05/17 08:57 86 07/05/17 08:32 73 17 30 07/05/17 08:27 87 128/73 07/05/17 08:11 99.3 87 24 128/73 100 Mechanical Ventilator 30 07/05/17 08:00 30 07/05/17 07:17 83 19 30 07/05/17 05:30 79 20 30 07/05/17 04:00 30 07/05/17 04:00 97.9 98 23 123/63 100 Mechanical Ventilator 30 07/05/17 04:00 86 07/05/17 03:10 85 20 30 07/05/17 01:30 82 20 30 07/05/17 00:00 30 07/05/17 00:00 99.8 81 25 112/52 98 Mechanical Ventilator 30 07/05/17 00:00 88 07/04/17 23:05 80 26 30 07/04/17 21:25 76 17 30 07/04/17 21:00 83 118/58 07/04/17 20:00 98.2 83 24 118/58 100 Mechanical Ventilator 30 07/04/17 20:00 83 07/04/17 20:00 30 07/04/17 19:22 79 20 30 07/04/17 16:59 78 26 30 07/04/17 16:00 99.1 79 18 116/58 100 Mechanical Ventilator 30 07/04/17 16:00 78 07/04/17 16:00 30 07/04/17 15:03 72 23 30 07/04/17 12:52 78 25 30 07/04/17 12:00 80 07/04/17 12:00 30 07/04/17 11:59 98.6 63 19 108/46 99 Mechanical Ventilator 30 07/04/17 10:49 74 19 30 07/04/17 09:57 101.1 07/04/17 09:27 76 112/53 Intake and Output 07/05/17 07/06/17 19:00 07:00 # Bowel Movements 1 Height (Feet): 5 Height (Inches): 10.00 Weight (Pounds): 162 Objective General Appearance: WD/WN, lethargic, confused Neck: supple Cardiovascular: normal rate Respiratory/Chest: lungs clear, normal breath sounds, no respiratory distress, no accessory muscle use Abdomen: normal bowel sounds, non tender, soft, no organomegaly, no mass Edema: no edema noted Arm (L), no edema noted Arm (R), no edema noted Leg (L), no edema noted Leg (R), no edema noted Pedal (L), no edema noted Pedal (R), no edema noted Generalized WENDIE CASTELLANOS Jul 05, 2017 09:23
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
[2017-07-05] MEDS: Vancomycin 1gm/D5W 275ml IVPB SCH ×2 (11:05)
--- NOTE | 2017-07-05 12:19 | Pulmonology Progress Note ---
Assessment/Plan Assessment/Plan IMPRESSION: 1. chronic renal failure. 2. Anemia 3. Prior sepsis. 4. Respiratory failure, chronic. 5. Possible gastrointestinal bleed. 6. Anemia, possibly due to chronic disease. 7. Chronic encephalopathy. 8. Chronic debility. 9. Multiple pressure ulcers. 10. Paroxysmal atrial fibrillation. 11. Chronic obstructive pulmonary disease. 12. bacteremia ?contaminant PLAN care noted respiratory care Ventilatory support SNF meds supportive care suction on Vanco IV no wean oxygen therapy transfused dc in am if stable impression, plan, and exam edited and reviewed in detail care discussed with RN Subjective ROS Limited/Unobtainable: Yes Allergies: Coded Allergies: No Known Allergies (Unverified , 01/07/17) Subjective cultures noted reviewed care Objective Last 24 Hour Vital Signs Date Time Temp Pulse Resp B/P (MAP) Pulse Ox O2 Delivery O2 Flow Rate FiO2 07/05/17 11:46 100.4 77 19 119/62 100 Mechanical Ventilator 10.0 30 07/05/17 11:45 100.4 88 19 119/62 100 Mechanical Ventilator 10.0 30 07/05/17 10:31 69 19 30 07/05/17 08:57 86 07/05/17 08:32 73 17 30 07/05/17 08:27 87 128/73 07/05/17 08:11 99.3 87 24 128/73 100 Mechanical Ventilator 30 07/05/17 08:00 30 07/05/17 07:17 83 19 30 07/05/17 05:30 79 20 30 07/05/17 04:00 30 07/05/17 04:00 97.9 98 23 123/63 100 Mechanical Ventilator 30 07/05/17 04:00 86 07/05/17 03:10 85 20 30 07/05/17 01:30 82 20 30 07/05/17 00:00 30 07/05/17 00:00 99.8 81 25 112/52 98 Mechanical Ventilator 30 07/05/17 00:00 88 07/04/17 23:05 80 26 30 07/04/17 21:25 76 17 30 07/04/17 21:00 83 118/58 07/04/17 20:00 98.2 83 24 118/58 100 Mechanical Ventilator 30 07/04/17 20:00 83 07/04/17 20:00 30 07/04/17 19:22 79 20 30 07/04/17 16:59 78 26 30 07/04/17 16:00 99.1 79 18 116/58 100 Mechanical Ventilator 30 07/04/17 16:00 78 07/04/17 16:00 30 07/04/17 15:03 72 23 30 07/04/17 12:52 78 25 30 Intake and Output 07/05/17 07/06/17 19:00 07:00 # Bowel Movements 1 Objective GENERAL: Patient an ill appearing male, overall, chronically debilitated. HEENT: Overall negative. Pupils are sluggish. Tracheostomy midline. Carotid 2+. NECK: Supple. trach LUNGS: Coarse breath sounds. Moderate air entry. scattered rhonchi. CARDIAC: Normal S1 and S2, slightly distant without murmurs, rubs or gallops. ABDOMEN: Soft, nontender, and nondistended. Positive bowel sounds. G-tube in place. no HSM EXTREMITIES: No cyanosis, clubbing; noted wounds extremities NEUROLOGICALLY: Poor mental status. Overall nonverbal. Microbiology Date/Time Source Procedure Growth Status 07/02/17 21:42 Blood Blood Culture - Preliminary Staphylococcus Sp Coag Neg Resulted 07/02/17 21:20 Blood Blood Culture - Preliminary Staphylococcus Sp Coag Neg Resulted 07/03/17 02:35 Nasal Nares MRSA Culture - Final NO METHICILLIN RESISTANT STAPH AUREUS... 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 Complete Current Medications Medications (Trade) Dose Ordered Sig/Subhash Route PRN Reason Start Time Stop Time Status Last Admin Dose Admin Acetaminophen (Tylenol) 640 mg PRN PRN GT Mild Pain (Pain Scale 1-3) 07/03/17 09:00 08/02/17 08:59 07/04/17 09:27 Albuterol Sulfate (Proventil) 2.5 mg Q6H PRN HHN Shortness of Breath 07/03/17 09:00 07/08/17 08:59 Atorvastatin Calcium (Lipitor) 10 mg BEDTIME GT 07/03/17 21:00 08/02/17 20:59 07/04/17 20:59 Bisacodyl (Dulcolax) 10 mg PRN PRN RECTAL Constipation 07/03/17 09:00 08/02/17 08:59 Clotrimazole (Lotrimin) 1 applic EVERY 12 HOURS TOPIC 07/05/17 10:00 08/04/17 09:59 07/05/17 10:11 Collagenase (Santyl) 1 applic DAILY TOPIC 07/04/17 09:00 08/03/17 08:59 07/05/17 08:27 Docusate Sodium (Colace) 100 mg DAILY NG 07/04/17 09:15 08/03/17 09:14 07/05/17 08:26 Lansoprazole (Prevacid) 30 mg DAILY GT 07/03/17 09:00 08/02/17 08:59 07/05/17 08:27 Magnesium Hydroxide (Mom) 30 ml DAILY PRN GT PRN 07/03/17 09:00 08/02/17 08:59 Metoprolol Tartrate (Lopressor) 50 mg EVERY 12 HOURS GT 07/03/17 09:00 08/02/17 08:59 07/05/17 08:27 Sodium Phosphate (Fleet's Sodium Phosl Enema) 133 ml PRN PRN RECTAL Constipation 07/03/17 09:00 08/02/17 08:59 Vancomycin HCl (Vanco rx to dose) 1 ea DAILY PRN MISC Per rx protocol 07/04/17 10:30 08/03/17 10:29 Vancomycin HCl 1 gm/Dextrose 275 ml @ 183.708 mls/hr Q24H IVPB 07/05/17 11:00 07/10/17 10:59 07/05/17 11:05 REJI OJEDA Jul 05, 2017 12:19
--- NOTE | 2017-07-05 18:05 | Cardiology Report ---
APPROVED REPORT EXAM: Two-dimensional and M-mode echocardiogram with Doppler and color Doppler. INDICATION Endocarditis M-Mode DIMENSIONS IVSd1.2 (0.7-1.1cm)Left Atrium (MM)4.5 (1.6-4.0cm) LVDd3.5 (3.5-5.6cm)Aortic Root3.2 (2.0-3.7cm) PWd1.3 (0.7-1.1cm)Aortic Cusp Exc.1.8 (1.5-2.0cm) LVDs3.4 (2.5-4.0cm) PWs1.6 cm Technically difficult study due to poor parasternal acoustical windows Study quality precludes accurate assessment of regional wall motion. Normal left ventricular chamber size and probably normal lv systlic fucntion except for asynchrononus septal motion related to pacing Left ventricular ejection fraction estimated to be 50-55 %. Mild left ventricular hypertrophy. Anterior Echo-free space, may be due to pericardial fat or effusion. Mild left atrial enlargement. Right cardiac chamber sizes are within normal limits. Moderate focal aortic valve sclerosis poorly visulaized cusp excursion. Mildly thickened mitral valve leaflets with normal excursion. Mild mitral annulus and aortic root calcification. Pulmonic valve not visualized. Normal tricuspid valve structure. Subcostal views not obtainable due to GI Tube. A color flow and spectral Doppler study was performed and revealed: No aortic regurgitation. Moderate mitral regurgitation. Mitral diastolic velocities suggest reduced left ventricular relaxation c/w mild LV diastolic dysfunction (Grade I ). Mild tricuspid regurgitation. Tricuspid systolic velocities suggests peak right ventricular systolic pressure of 35 mmHg, consistent with mild pulmonary hypertension.
--- NOTE | 2017-07-05 18:43 | Cardiology Report ---
APPROVED REPORT EKG Measurement Heart [id number] 164P [id number] atrial paced ventricular sensed
--- NOTE | 2017-07-05 18:43 | Cardiology Report ---
APPROVED REPORT EKG Measurement Heart [id number] [place] 164P [id number] atrial paced ventricular sensed
--- NOTE | 2017-07-05 18:43 | Cardiology Report ---
APPROVED REPORT EKG Measurement Heart [id number] [place] 164P [id number] atrial paced ventricular sensed
[2017-07-05] MEDS: Acetaminophen 650mg/20.3ml GT PRN (22:24)
[2017-07-06] VITALS: BP 103/59
[2017-07-06 04:00] VITALS: BP 140/82
[2017-07-06 04:42] LABS: BASOPHILS % (AUTO) 0.5 % (0.0-2.0); EOSINOPHILS % (AUTO) 1.7 % (0.0-3.0); HEMATOCRIT 27.8 % (42.0-52.0); LYMPHOCYTES % (AUTO) 19.5 % (20.0-45.0); MEAN CORPUSCULAR VOLUME 89 FL (80-99); MONOCYTES % (AUTO) 6.7 % (1.0-10.0); NEUTROPHILS % (AUTO) 71.5 % (45.0-75.0); PLATELET COUNT 406 K/UL (150-450); RED BLOOD COUNT 3.12 M/UL (4.70-6.10); RED CELL DISTRIBUTION WIDTH 17.6 % (11.6-14.8); WHITE BLOOD COUNT 10.6 K/UL (4.8-10.8)
[2017-07-06 08:00] VITALS: BP 121/60
--- NOTE | 2017-07-06 08:08 | Pulmonology Progress Note ---
Assessment/Plan Assessment/Plan IMPRESSION: 1. chronic renal failure. 2. Anemia 3. Prior sepsis. 4. Respiratory failure, chronic. 5. Possible gastrointestinal bleed. 6. Anemia, possibly due to chronic disease. 7. Chronic encephalopathy. 8. Chronic debility. 9. Multiple pressure ulcers. 10. Paroxysmal atrial fibrillation. 11. Chronic obstructive pulmonary disease. 12. bacteremia ?contaminant 13. multiple extremity wounds- un stageable and necrotic PLAN care noted respiratory care Ventilatory support SNF meds supportive care suction on Vanco IV no wean oxygen therapy transfused dc today not surgical candidate impression, plan, and exam edited and reviewed in detail care discussed with RN Subjective ROS Limited/Unobtainable: Yes Allergies: Coded Allergies: No Known Allergies (Unverified , 01/07/17) Subjective cultures noted reviewed care d/w podiatry would need amputation Objective Last 24 Hour Vital Signs Date Time Temp Pulse Resp B/P (MAP) Pulse Ox O2 Delivery O2 Flow Rate FiO2 07/06/17 08:00 98.2 83 24 121/60 100 Mechanical Ventilator 30 07/06/17 07:36 77 19 30 07/06/17 05:29 106 19 30 07/06/17 04:12 88 07/06/17 04:00 99.7 97 24 140/82 100 Mechanical Ventilator 30 07/06/17 04:00 30 07/06/17 03:16 85 22 30 07/06/17 01:10 81 20 30 07/06/17 00:00 98.1 82 18 103/59 98 Mechanical Ventilator 30 07/06/17 00:00 30 07/06/17 00:00 74 07/05/17 23:45 71 19 30 07/05/17 22:54 98.1 07/05/17 22:23 95 125/61 07/05/17 21:39 74 19 30 07/05/17 20:00 81 07/05/17 20:00 30 07/05/17 20:00 102.7 95 22 125/61 98 Mechanical Ventilator 30 07/05/17 19:27 84 30 30 07/05/17 16:37 79 16 30 07/05/17 16:00 75 07/05/17 16:00 30 07/05/17 16:00 100.2 87 21 116/63 100 Mechanical Ventilator 10.0 30 07/05/17 14:38 77 19 30 07/05/17 12:39 82 19 30 07/05/17 12:00 30 07/05/17 12:00 75 07/05/17 11:46 100.4 77 19 119/62 100 Mechanical Ventilator 10.0 30 07/05/17 11:45 100.4 88 19 119/62 100 Mechanical Ventilator 10.0 30 07/05/17 10:31 69 19 30 07/05/17 08:57 86 07/05/17 08:32 73 17 30 07/05/17 08:27 87 128/73 07/05/17 08:11 99.3 87 24 128/73 100 Mechanical Ventilator 30 Objective GENERAL: Patient an ill appearing male, overall, chronically debilitated. HEENT: Overall negative. Pupils are sluggish. Tracheostomy midline. Carotid 2+. NECK: Supple. trach LUNGS: Coarse breath sounds. Moderate air entry. scattered rhonchi. CARDIAC: Normal S1 and S2, slightly distant without murmurs, rubs or gallops. ABDOMEN: Soft, nontender, and nondistended. Positive bowel sounds. G-tube in place. no HSM EXTREMITIES: No cyanosis, clubbing; noted wounds extremities NEUROLOGICALLY: Poor mental status. Overall nonverbal. Laboratory Tests 07/06/17 03:25: White Blood Count 10.6, Red Blood Count 3.12L, Hemoglobin 9.0L, Hematocrit 27.8L , Mean Corpuscular Volume 89, Mean Corpuscular Hemoglobin 28.9, Mean Corpuscular Hemoglobin Concent 32.4, Red Cell Distribution Width 17.6H, Platelet Count 406, Mean Platelet Volume 5.2L, Neutrophils (%) (Auto) 71.5, Lymphocytes (%) (Auto) 19.5L, Monocytes (%) (Auto) 6.7, Eosinophils (%) (Auto) 1.7, Basophils (%) (Auto) 0.5 Current Medications Medications (Trade) Dose Ordered Sig/Subhash Route PRN Reason Start Time Stop Time Status Last Admin Dose Admin Acetaminophen (Tylenol) 640 mg PRN PRN GT Mild Pain (Pain Scale 1-3) 07/03/17 09:00 08/02/17 08:59 07/05/17 22:24 Albuterol Sulfate (Proventil) 2.5 mg Q6H PRN HHN Shortness of Breath 07/03/17 09:00 07/08/17 08:59 Atorvastatin Calcium (Lipitor) 10 mg BEDTIME GT 07/03/17 21:00 08/02/17 20:59 07/06/17 00:15 Bisacodyl (Dulcolax) 10 mg PRN PRN RECTAL Constipation 07/03/17 09:00 08/02/17 08:59 Clotrimazole (Lotrimin) 1 applic EVERY 12 HOURS TOPIC 07/05/17 10:00 08/04/17 09:59 07/05/17 22:25 Collagenase (Santyl) 1 applic DAILY TOPIC 07/04/17 09:00 08/03/17 08:59 07/05/17 08:27 Docusate Sodium (Colace) 100 mg DAILY NG 07/04/17 09:15 08/03/17 09:14 07/05/17 08:26 Lansoprazole (Prevacid) 30 mg DAILY GT 07/03/17 09:00 08/02/17 08:59 07/05/17 08:27 Magnesium Hydroxide (Mom) 30 ml DAILY PRN GT PRN 07/03/17 09:00 08/02/17 08:59 Metoprolol Tartrate (Lopressor) 50 mg EVERY 12 HOURS GT 07/03/17 09:00 08/02/17 08:59 07/05/17 22:23 Sodium Phosphate (Fleet's Sodium Phosl Enema) 133 ml PRN PRN RECTAL Constipation 07/03/17 09:00 08/02/17 08:59 Vancomycin HCl (Vanco rx to dose) 1 ea DAILY PRN MISC Per rx protocol 07/04/17 10:30 08/03/17 10:29 Vancomycin HCl 1 gm/Dextrose 275 ml @ 183.708 mls/hr Q24H IVPB 07/05/17 11:00 07/10/17 10:59 07/05/17 11:05 REJI OJEDA Jul 06, 2017 08:08
--- NOTE | 2017-07-06 08:41 | Infectious Diseases Prog Note ---
Assessment/Plan Assessment/Plan A; Sepsis Positive blood cultures for CoANS Necrotic pressure ulcer Anemia VDRF CKD P: Continue IV Vancomycin, add Cefepime TTE was negative for vegetation not a candidate for amputation Subjective ROS Limited/Unobtainable: Yes Constitutional: Reports: fever, other - Zell=438.7 last night Allergies: Coded Allergies: No Known Allergies (Unverified , 01/07/17) Objective Vital Signs Last 24 Hour Vital Signs Date Time Temp Pulse Resp B/P (MAP) Pulse Ox O2 Delivery O2 Flow Rate FiO2 07/06/17 08:00 98.2 83 24 121/60 100 Mechanical Ventilator 30 07/06/17 07:36 77 19 30 07/06/17 05:29 106 19 30 07/06/17 04:12 88 07/06/17 04:00 99.7 97 24 140/82 100 Mechanical Ventilator 30 07/06/17 04:00 30 07/06/17 03:16 85 22 30 07/06/17 01:10 81 20 30 07/06/17 00:00 98.1 82 18 103/59 98 Mechanical Ventilator 30 07/06/17 00:00 30 07/06/17 00:00 74 07/05/17 23:45 71 19 30 07/05/17 22:54 98.1 07/05/17 22:23 95 125/61 07/05/17 21:39 74 19 30 07/05/17 20:00 81 07/05/17 20:00 30 07/05/17 20:00 102.7 95 22 125/61 98 Mechanical Ventilator 30 07/05/17 19:27 84 30 30 07/05/17 16:37 79 16 30 07/05/17 16:00 75 07/05/17 16:00 30 07/05/17 16:00 100.2 87 21 116/63 100 Mechanical Ventilator 10.0 30 07/05/17 14:38 77 19 30 07/05/17 12:39 82 19 30 07/05/17 12:00 30 07/05/17 12:00 75 07/05/17 11:46 100.4 77 19 119/62 100 Mechanical Ventilator 10.0 30 07/05/17 11:45 100.4 88 19 119/62 100 Mechanical Ventilator 10.0 30 07/05/17 10:31 69 19 30 07/05/17 08:57 86 Height (Feet): 5 Height (Inches): 10.00 Weight (Pounds): 162 HEENT: status post trach Respiratory/Chest: lungs clear, other - on ventilator Cardiovascular: normal rate Abdomen: soft, non tender, other - GT feeding Extremities: other - contracted legs Skin: ulcers, other - necrotic in both legs Neurologic/Psychiatric: unresponsiveness Laboratory Tests Test 07/06/17 03:25 White Blood Count 10.6 K/UL (4.8-10.8) Red Blood Count 3.12 M/UL (4.70-6.10) L Hemoglobin 9.0 G/DL (14.2-18.0) L Hematocrit 27.8 % (42.0-52.0) L Mean Corpuscular Volume 89 FL (80-99) Mean Corpuscular Hemoglobin 28.9 PG (27.0-31.0) Mean Corpuscular Hemoglobin Concent 32.4 G/DL (32.0-36.0) Red Cell Distribution Width 17.6 % (11.6-14.8) H Platelet Count 406 K/UL (150-450) Mean Platelet Volume 5.2 FL (6.5-10.1) L Neutrophils (%) (Auto) 71.5 % (45.0-75.0) Lymphocytes (%) (Auto) 19.5 % (20.0-45.0) L Monocytes (%) (Auto) 6.7 % (1.0-10.0) Eosinophils (%) (Auto) 1.7 % (0.0-3.0) Basophils (%) (Auto) 0.5 % (0.0-2.0) Current Medications Medications (Trade) Dose Ordered Sig/Subhash Route PRN Reason Start Time Stop Time Status Last Admin Dose Admin Acetaminophen (Tylenol) 640 mg PRN PRN GT Mild Pain (Pain Scale 1-3) 07/03/17 09:00 08/02/17 08:59 07/05/17 22:24 Albuterol Sulfate (Proventil) 2.5 mg Q6H PRN HHN Shortness of Breath 07/03/17 09:00 07/08/17 08:59 Atorvastatin Calcium (Lipitor) 10 mg BEDTIME GT 07/03/17 21:00 08/02/17 20:59 07/06/17 00:15 Bisacodyl (Dulcolax) 10 mg PRN PRN RECTAL Constipation 07/03/17 09:00 08/02/17 08:59 Clotrimazole (Lotrimin) 1 applic EVERY 12 HOURS TOPIC 07/05/17 10:00 08/04/17 09:59 07/05/17 22:25 Collagenase (Santyl) 1 applic DAILY TOPIC 07/04/17 09:00 08/03/17 08:59 07/05/17 08:27 Docusate Sodium (Colace) 100 mg DAILY NG 07/04/17 09:15 08/03/17 09:14 07/05/17 08:26 Lansoprazole (Prevacid) 30 mg DAILY GT 07/03/17 09:00 08/02/17 08:59 07/05/17 08:27 Magnesium Hydroxide (Mom) 30 ml DAILY PRN GT PRN 07/03/17 09:00 08/02/17 08:59 Metoprolol Tartrate (Lopressor) 50 mg EVERY 12 HOURS GT 07/03/17 09:00 08/02/17 08:59 07/05/17 22:23 Sodium Phosphate (Fleet's Sodium Phosl Enema) 133 ml PRN PRN RECTAL Constipation 07/03/17 09:00 08/02/17 08:59 Vancomycin HCl (Vanco rx to dose) 1 ea DAILY PRN MISC Per rx protocol 07/04/17 10:30 08/03/17 10:29 Vancomycin HCl 1 gm/Dextrose 275 ml @ 183.708 mls/hr Q24H IVPB 07/05/17 11:00 07/10/17 10:59 07/05/17 11:05 ABDOULAYE ALFONSO Jul 06, 2017 08:41
--- NOTE | 2017-07-06 08:45 | Consultation ---
DATE OF CONSULTATION: 07/03/2017 PODIATRY CONSULTATION HISTORY OF PRESENT ILLNESS: This is an 82-year-old white male, who was admitted through the emergency room to the hospital yesterday for anemia. He was brought over with an ambulance from senior living where he is residing. PAST MEDICAL HISTORY: Remarkable for hypertension, anemia, chronic kidney disease, dementia, and encephalopathy. The patient has pacemaker. MEDICATIONS: Refer to chart notes. ALLERGIES: No known drug allergies. PODIATRIC PHYSICAL EXAMINATION: VASCULAR STATUS: Revealed nonpalpable pulses, dorsalis pedis and posterior tibial artery. The foot is warm to touch bilaterally. Homans sign is negative. No varicosities are noted. NEUROLOGICAL: Reflexes Achilles and patellar were unresponsive bilaterally. The sensation, proprioception, and vibration sensation could not be elicited due to the patient's condition and nonresponsiveness. The patient appeared to be neuropathic bilaterally. MUSCULOSKELETAL: Reveals flexion contracture of both lower extremities. DERMATOLOGICAL: Reveals bilateral extensive multiple stage 3 and stage 4 ulcerations of the foot, the ankle, and the left distal leg. The ulcers involved the heels bilaterally. There was necrotic gangrenous skin bilateral heels. The right foot ulcer exhibited extensive ulcer covering the plantar aspect of the foot, which measured approximately a 5 x 10 cm. The left foot had ulcerations over the distal aspect of the left lateral leg with peroneal muscle and tendon exposure. There is also an ulceration, which converges with the proximal ulcer over the lateral aspect of the lateral malleolus. The lateral aspect of the left foot is ulcerated from the 05:[address] to the proximal aspect of the first digit. It measures approximately 4 x 15 cm. The ulcers are draining. No serosanguineous discharge is noted. No streaking or lymphangitis present in bilateral legs, probably of older is present. Probing of the ulcerations did not reveal tunneling or undermining. RADIOGRAPHIC EXAMINATION: Not performed prior and was not ordered secondary to the patient's condition. ASSESSMENT: 1. Anemia. 2. Encephalopathy. 3. Chronic respiratory disease. 4. 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 PLAN: Dressing changes were ordered to consist of saline wash followed by Santyl application and Adaptic 4 x 4 gauze and 3-inch José. The debridement of the necrotic skin and gangrene is not an option secondary to the patient's condition and position, which may not be of such extensive debridement. The patient's Code Status is DNR and the only treatment for the wound will include an amputation, which is not practical secondary to the status of the patient. Thank you, Dr. Guerra, for allowing me to see this patient in consultation. Candi Alberto.P.MDennise DR: Jocelyne JOB#: [id number] CC:
[2017-07-06] MEDS: Docusate 100mg/10ml Liq NG SCH (08:51)
[2017-07-06] MEDS: Metoprolol Tartrate 50mg tab GT SCH ×2 (08:52→21:08)
[2017-07-06] MEDS: Vancomycin 1gm/D5W 275ml IVPB SCH ×2 (11:22)
[2017-07-06] MEDS: Cefepime HCl 1 GM in D5W 55 ML IVPB SCH ×2 (11:22→21:06)
[2017-07-06 11:27] VITALS: BP 98/59
[2017-07-06 16:00] VITALS: BP 115/64
[2017-07-06] MEDS ORDERED: NS Irrig 1000ml ONE (16:01)
[2017-07-06] MEDS ORDERED: NS 275ml ONE (16:01)
[2017-07-06 19:51] VITALS: BP 127/71
[2017-07-06] MEDS: Acetaminophen 650mg/20.3ml GT PRN (21:12)
[2017-07-07] VITALS: BP 113/58
[2017-07-07 04:00] VITALS: BP 110/62
[2017-07-07 08:00] VITALS: BP 130/62
[2017-07-07] MEDS: Docusate 100mg/10ml Liq NG SCH (09:11)
[2017-07-07] MEDS: Cefepime HCl 1 GM in D5W 55 ML IVPB SCH (09:11)
[2017-07-07] MEDS: Metoprolol Tartrate 50mg tab GT SCH (09:11)
[2017-07-07] MEDS: Vancomycin 1gm/D5W 275ml IVPB SCH ×2 (11:11)
[2017-07-07 12:00] VITALS: BP 125/60
--- NOTE | 2017-07-07 12:04 | Infectious Diseases Prog Note ---
Assessment/Plan Assessment/Plan antibiotics : vancomycin iv, cefepime A 1. + blood cultures with coag neg staph likely contaminated 2. decubitus ulcer 3. dementia 4. rectal VRE colonization P 1. d/c vancomycin iv, cefepime 2. observe off antibiotics Subjective ROS Limited/Unobtainable: Yes Allergies: Coded Allergies: No Known Allergies (Unverified , 01/07/17) Objective Vital Signs Last 24 Hour Vital Signs Date Time Temp Pulse Resp B/P (MAP) Pulse Ox O2 Delivery O2 Flow Rate FiO2 07/07/17 12:00 98.7 79 16 125/60 100 Mechanical Ventilator 30 07/07/17 11:06 77 20 30 07/07/17 09:21 76 22 30 07/07/17 09:11 81 130/62 07/07/17 08:00 81 07/07/17 08:00 30 07/07/17 08:00 98.8 78 20 130/62 100 Mechanical Ventilator 30 07/07/17 06:56 74 18 30 07/07/17 04:47 75 20 30 07/07/17 04:00 79 07/07/17 04:00 99.0 83 22 110/62 100 Mechanical Ventilator 30 07/07/17 04:00 30 07/07/17 03:30 71 20 30 07/07/17 01:30 74 20 30 07/07/17 00:00 83 07/07/17 00:00 98.7 70 22 113/58 100 Mechanical Ventilator 30 07/06/17 23:30 70 17 30 07/06/17 21:14 72 20 30 07/06/17 21:08 96 116/69 07/06/17 21:00 99.2 07/06/17 20:00 30 07/06/17 20:00 86 07/06/17 19:51 99.9 98 22 127/71 100 Mechanical Ventilator 30 07/06/17 19:30 75 22 30 07/06/17 17:26 80 22 30 07/06/17 16:00 98.7 98 22 115/64 100 Mechanical Ventilator 30 07/06/17 16:00 30 07/06/17 16:00 81 07/06/17 15:10 75 22 30 07/06/17 12:40 71 18 30 Height (Feet): 5 Height (Inches): 10.00 Weight (Pounds): 162 HEENT: status post trach Respiratory/Chest: lungs clear Cardiovascular: normal rate, regular rhythm, no gallop/murmur Abdomen: soft, non tender, other - GT Extremities: no edema, other - contracted Laboratory Tests Test 07/07/17 10:15 Vancomycin Level Trough 15.9 ug/mL (5.0-12.0) H Current Medications Medications (Trade) Dose Ordered Sig/Subhash Route PRN Reason Start Time Stop Time Status Last Admin Dose Admin Acetaminophen (Tylenol) 640 mg PRN PRN GT Mild Pain (Pain Scale 1-3) 07/03/17 09:00 08/02/17 08:59 07/06/17 21:12 Albuterol Sulfate (Proventil) 2.5 mg Q6H PRN HHN Shortness of Breath 07/03/17 09:00 07/08/17 08:59 Atorvastatin Calcium (Lipitor) 10 mg BEDTIME GT 07/03/17 21:00 08/02/17 20:59 07/06/17 21:09 Bisacodyl (Dulcolax) 10 mg PRN PRN RECTAL Constipation 07/03/17 09:00 08/02/17 08:59 Cefepime HCl 1 gm/ Dextrose 55 ml @ 110 mls/hr EVERY 12 HOURS IVPB 07/06/17 10:00 07/13/17 09:59 07/07/17 09:11 Clotrimazole (Lotrimin) 1 applic EVERY 12 HOURS TOPIC 07/05/17 10:00 08/04/17 09:59 07/07/17 09:11 Collagenase (Santyl) 1 applic DAILY TOPIC 07/04/17 09:00 08/03/17 08:59 07/07/17 09:11 Docusate Sodium (Colace) 100 mg DAILY NG 07/04/17 09:15 08/03/17 09:14 07/07/17 09:11 Lansoprazole (Prevacid) 30 mg DAILY GT 07/03/17 09:00 08/02/17 08:59 07/07/17 09:11 Magnesium Hydroxide (Mom) 30 ml DAILY PRN GT PRN 07/03/17 09:00 08/02/17 08:59 Metoprolol Tartrate (Lopressor) 50 mg EVERY 12 HOURS GT 07/03/17 09:00 08/02/17 08:59 07/07/17 09:11 Sodium Phosphate (Fleet's Sodium Phosl Enema) 133 ml PRN PRN RECTAL Constipation 07/03/17 09:00 08/02/17 08:59 Vancomycin HCl (Vanco rx to dose) 1 ea DAILY PRN MISC Per rx protocol 07/04/17 10:30 08/03/17 10:29 Vancomycin HCl 1 gm/Dextrose 275 ml @ 183.708 mls/hr Q24H IVPB 07/05/17 11:00 07/10/17 10:59 07/07/17 11:11 VINICIO VAUGHAN Jul 07, 2017 12:04
[2017-07-07] MEDS ORDERED: NS 275ml ONE (13:44)
[2017-07-07] MEDS ORDERED: Tubing IV Secondary IV ONE (13:44)
--- NOTE | 2017-07-07 14:16 | Pulmonology Progress Note ---
Assessment/Plan Assessment/Plan IMPRESSION: 1. chronic renal failure. 2. Anemia 3. Prior sepsis. 4. Respiratory failure, chronic. 5. Possible gastrointestinal bleed. 6. Anemia, possibly due to chronic disease. 7. Chronic encephalopathy. 8. Chronic debility. 9. Multiple pressure ulcers. 10. Paroxysmal atrial fibrillation. 11. Chronic obstructive pulmonary disease. 12. bacteremia ?contaminant 13. multiple extremity wounds- un stageable and necrotic PLAN care noted respiratory care Ventilatory support SNF meds supportive care suction on Vanco IV no wean oxygen therapy transfused dc today; monitor fevers after discharge not surgical candidate d/w daughter- does not want surgery impression, plan, and exam edited and reviewed in detail care discussed with RN Subjective ROS Limited/Unobtainable: Yes Allergies: Coded Allergies: No Known Allergies (Unverified , 01/07/17) Subjective cultures noted reviewed care d/w podiatry would need amputation Objective Last 24 Hour Vital Signs Date Time Temp Pulse Resp B/P (MAP) Pulse Ox O2 Delivery O2 Flow Rate FiO2 07/07/17 12:58 75 20 30 07/07/17 12:00 98.7 79 16 125/60 100 Mechanical Ventilator 07/07/17 11:06 77 20 30 07/07/17 09:21 76 22 30 07/07/17 09:11 81 130/62 07/07/17 08:00 81 07/07/17 08:00 30 07/07/17 08:00 98.8 78 20 130/62 100 Mechanical Ventilator 07/07/17 06:56 74 18 30 07/07/17 04:47 75 20 30 07/07/17 04:00 79 07/07/17 04:00 99.0 83 22 110/62 100 Mechanical Ventilator 30 07/07/17 04:00 30 07/07/17 03:30 71 20 30 07/07/17 01:30 74 20 30 07/07/17 00:00 83 07/07/17 00:00 98.7 70 22 113/58 100 Mechanical Ventilator 07/06/17 23:30 70 17 30 07/06/17 21:14 72 20 30 07/06/17 21:08 96 116/69 07/06/17 21:00 99.2 07/06/17 20:00 30 07/06/17 20:00 86 07/06/17 19:51 99.9 98 22 127/71 100 Mechanical Ventilator 30 07/06/17 19:30 75 22 30 07/06/17 17:26 80 22 30 07/06/17 16:00 98.7 98 22 115/64 100 Mechanical Ventilator 30 07/06/17 16:00 30 07/06/17 16:00 81 07/06/17 15:10 75 22 30 Intake and Output 07/07/17 07/08/17 19:00 07:00 Intake Total 0 ml Output Total 900 ml Balance -900 ml Tube Feeding 0 ml Output Urine Total 900 ml Objective GENERAL: Patient an ill appearing male, overall, chronically debilitated. HEENT: Overall negative. Pupils are sluggish. Tracheostomy midline. Carotid 2+. NECK: Supple. trach LUNGS: Coarse breath sounds. Moderate air entry. scattered rhonchi. CARDIAC: Normal S1 and S2, slightly distant without murmurs, rubs or gallops. ABDOMEN: Soft, nontender, and nondistended. Positive bowel sounds. G-tube in place. no HSM EXTREMITIES: No clubbing; noted wounds extremities NEUROLOGICALLY: Poor mental status. Overall nonverbal. Laboratory Tests 07/07/17 10:15: Vancomycin Level Trough 15.9H Current Medications Medications (Trade) Dose Ordered Sig/Subhash Route PRN Reason Start Time Stop Time Status Last Admin Dose Admin Acetaminophen (Tylenol) 640 mg PRN PRN GT Mild Pain (Pain Scale 1-3) 07/03/17 09:00 08/02/17 08:59 07/06/17 21:12 Albuterol Sulfate (Proventil) 2.5 mg Q6H PRN HHN Shortness of Breath 07/03/17 09:00 07/08/17 08:59 Atorvastatin Calcium (Lipitor) 10 mg BEDTIME GT 07/03/17 21:00 08/02/17 20:59 07/06/17 21:09 Bisacodyl (Dulcolax) 10 mg PRN PRN RECTAL Constipation 07/03/17 09:00 08/02/17 08:59 Clotrimazole (Lotrimin) 1 applic EVERY 12 HOURS TOPIC 07/05/17 10:00 08/04/17 09:59 07/07/17 09:11 Collagenase (Santyl) 1 applic DAILY TOPIC 07/04/17 09:00 08/03/17 08:59 07/07/17 09:11 Docusate Sodium (Colace) 100 mg DAILY NG 07/04/17 09:15 08/03/17 09:14 07/07/17 09:11 Lansoprazole (Prevacid) 30 mg DAILY GT 07/03/17 09:00 08/02/17 08:59 07/07/17 09:11 Magnesium Hydroxide (Mom) 30 ml DAILY PRN GT PRN 07/03/17 09:00 08/02/17 08:59 Metoprolol Tartrate (Lopressor) 50 mg EVERY 12 HOURS GT 07/03/17 09:00 08/02/17 08:59 07/07/17 09:11 Sodium Phosphate (Fleet's Sodium Phosl Enema) 133 ml PRN PRN RECTAL Constipation 07/03/17 09:00 08/02/17 08:59 REJI OJEDA Jul 07, 2017 14:16
--- NOTE | 2017-07-07 14:48 | General Progress Note ---
Assessment/Plan Problem List: (1) Abnormal laboratory test ICD Codes: R89.9 - Unspecified abnormal finding in specimens from other organs , systems and tissues SNOMED: 617228569 (2) toxic metabolic encephalopathy 2/2 infecion/metabolc derangement (3) Pacemaker ICD Codes: Z95.0 - Presence of cardiac pacemaker SNOMED: 887502665, 348513541 (4) Anemia ICD Codes: D64.9 - Anemia, unspecified SNOMED: 606535662 (5) Bacteremia ICD Codes: R78.81 - Bacteremia SNOMED: 1113506 (6) Sepsis ICD Codes: A41.9 - Sepsis, unspecified organism SNOMED: 99635155 Status: stable, progressing Assessment/Plan iv abx +blood cultures- suspect contaminant. abx dcd vent resp care monitor h/h transfuse as needed conservative rx dnr Subjective ROS Limited/Unobtainable: Yes Constitutional: Reports: malaise, weakness HEENT: Reports: no symptoms Cardiovascular: Reports: no symptoms Respiratory: Reports: shortness of breath Gastrointestinal/Abdominal: Reports: difficulty swallowing Genitourinary: Reports: no symptoms Neurologic/Psychiatric: Reports: pre-existing deficit Endocrine: Reports: no symptoms Hematologic/Lymphatic: Reports: anemia Allergies: Coded Allergies: No Known Allergies (Unverified , 01/07/17) All Systems: reviewed and negative except above Subjective no events. id noted. abx dcd- blood cultures likely contaminant. awake. no distress. Objective Last 24 Hour Vital Signs Date Time Temp Pulse Resp B/P (MAP) Pulse Ox O2 Delivery O2 Flow Rate FiO2 07/07/17 12:58 75 20 30 07/07/17 12:00 79 07/07/17 12:00 98.7 79 16 125/60 100 Mechanical Ventilator 07/07/17 12:00 30 07/07/17 11:06 77 20 30 07/07/17 09:21 76 22 30 07/07/17 09:11 81 130/62 07/07/17 08:00 81 07/07/17 08:00 30 07/07/17 08:00 98.8 78 20 130/62 100 Mechanical Ventilator 30 07/07/17 06:56 74 18 30 07/07/17 04:47 75 20 30 07/07/17 04:00 79 07/07/17 04:00 99.0 83 22 110/62 100 Mechanical Ventilator 30 07/07/17 04:00 30 07/07/17 03:30 71 20 30 07/07/17 01:30 74 20 30 07/07/17 00:00 83 07/07/17 00:00 98.7 70 22 113/58 100 Mechanical Ventilator 30 07/06/17 23:30 70 17 30 07/06/17 21:14 72 20 30 07/06/17 21:08 96 116/69 07/06/17 21:00 99.2 07/06/17 20:00 30 07/06/17 20:00 86 07/06/17 19:51 99.9 98 22 127/71 100 Mechanical Ventilator 30 07/06/17 19:30 75 22 30 07/06/17 17:26 80 22 30 07/06/17 16:00 98.7 98 22 115/64 100 Mechanical Ventilator 30 07/06/17 16:00 30 07/06/17 16:00 81 07/06/17 15:10 75 22 30 Intake and Output 07/07/17 07/08/17 19:00 07:00 Intake Total 110 ml Output Total 900 ml Balance -790 ml Tube Feeding 110 ml Output Urine Total 900 ml Laboratory Tests 07/07/17 10:15: Vancomycin Level Trough 15.9H Height (Feet): 5 Height (Inches): 10.00 Weight (Pounds): 162 Objective General Appearance: WD/WN, lethargic, confused Neck: supple Cardiovascular: normal rate Respiratory/Chest: lungs clear, normal breath sounds, no respiratory distress, no accessory muscle use Abdomen: normal bowel sounds, non tender, soft, no organomegaly, no mass Edema: no edema noted Arm (L), no edema noted Arm (R), no edema noted Leg (L), no edema noted Leg (R), no edema noted Pedal (L), no edema noted Pedal (R), no edema noted Generalized WENDIE CASTELLANOS Jul 07, 2017 14:48
--- NOTE | 2017-07-07 14:48 | General Progress Note ---
Assessment/Plan Problem List: (1) Abnormal laboratory test ICD Codes: R89.9 - Unspecified abnormal finding in specimens from other organs , systems and tissues SNOMED: 187219134 (2) toxic metabolic encephalopathy 2/2 infecion/metabolc derangement (3) Pacemaker ICD Codes: Z95.0 - Presence of cardiac pacemaker SNOMED: 226519114, 133605404 (4) Anemia ICD Codes: D64.9 - Anemia, unspecified SNOMED: 402637652 (5) Bacteremia ICD Codes: R78.81 - Bacteremia SNOMED: 0621005 (6) Sepsis ICD Codes: A41.9 - Sepsis, unspecified organism SNOMED: 25275592 Status: stable, progressing Assessment/Plan iv abx +blood cultures- suspect contaminant. abx dcd vent resp care monitor h/h transfuse as needed conservative rx dnr Subjective ROS Limited/Unobtainable: Yes Constitutional: Reports: malaise, weakness HEENT: Reports: no symptoms Cardiovascular: Reports: no symptoms Respiratory: Reports: shortness of breath Gastrointestinal/Abdominal: Reports: difficulty swallowing Genitourinary: Reports: no symptoms Neurologic/Psychiatric: Reports: pre-existing deficit Endocrine: Reports: no symptoms Hematologic/Lymphatic: Reports: anemia Allergies: Coded Allergies: No Known Allergies (Unverified , 01/07/17) All Systems: reviewed and negative except above Subjective no events. id noted. abx dcd- blood cultures likely contaminant. awake. no distress. Objective Last 24 Hour Vital Signs Date Time Temp Pulse Resp B/P (MAP) Pulse Ox O2 Delivery O2 Flow Rate FiO2 07/07/17 12:58 75 20 30 07/07/17 12:00 79 07/07/17 12:00 98.7 79 16 125/60 100 Mechanical Ventilator 07/07/17 12:00 30 07/07/17 11:06 77 20 30 07/07/17 09:21 76 22 30 07/07/17 09:11 81 130/62 07/07/17 08:00 81 07/07/17 08:00 30 07/07/17 08:00 98.8 78 20 130/62 100 Mechanical Ventilator 30 07/07/17 06:56 74 18 30 07/07/17 04:47 75 20 30 07/07/17 04:00 79 07/07/17 04:00 99.0 83 22 110/62 100 Mechanical Ventilator 30 07/07/17 04:00 30 07/07/17 03:30 71 20 30 07/07/17 01:30 74 20 30 07/07/17 00:00 83 07/07/17 00:00 98.7 70 22 113/58 100 Mechanical Ventilator 30 07/06/17 23:30 70 17 30 07/06/17 21:14 72 20 30 07/06/17 21:08 96 116/69 07/06/17 21:00 99.2 07/06/17 20:00 30 07/06/17 20:00 86 07/06/17 19:51 99.9 98 22 127/71 100 Mechanical Ventilator 30 07/06/17 19:30 75 22 30 07/06/17 17:26 80 22 30 07/06/17 16:00 98.7 98 22 115/64 100 Mechanical Ventilator 30 07/06/17 16:00 30 07/06/17 16:00 81 07/06/17 15:10 75 22 30 Intake and Output 07/07/17 07/08/17 19:00 07:00 Intake Total 110 ml Output Total 900 ml Balance -790 ml Tube Feeding 110 ml Output Urine Total 900 ml Laboratory Tests 07/07/17 10:15: Vancomycin Level Trough 15.9H Height (Feet): 5 Height (Inches): 10.00 Weight (Pounds): 162 Objective General Appearance: WD/WN, lethargic, confused Neck: supple Cardiovascular: normal rate Respiratory/Chest: lungs clear, normal breath sounds, no respiratory distress, no accessory muscle use Abdomen: normal bowel sounds, non tender, soft, no organomegaly, no mass Edema: no edema noted Arm (L), no edema noted Arm (R), no edema noted Leg (L), no edema noted Leg (R), no edema noted Pedal (L), no edema noted Pedal (R), no edema noted Generalized WENDIE CASTELLANOS Jul 07, 2017 14:48
--- NOTE | 2017-07-07 14:48 | General Progress Note ---
Assessment/Plan Problem List: (1) Abnormal laboratory test ICD Codes: R89.9 - Unspecified abnormal finding in specimens from other organs , systems and tissues SNOMED: 574273112 (2) toxic metabolic encephalopathy 2/2 infecion/metabolc derangement (3) Pacemaker ICD Codes: Z95.0 - Presence of cardiac pacemaker SNOMED: 642574913, 086680269 (4) Anemia ICD Codes: D64.9 - Anemia, unspecified SNOMED: 600252127 (5) Bacteremia ICD Codes: R78.81 - Bacteremia SNOMED: 0143577 (6) Sepsis ICD Codes: A41.9 - Sepsis, unspecified organism SNOMED: 34452595 Status: stable, progressing Assessment/Plan iv abx +blood cultures- suspect contaminant. abx dcd vent resp care monitor h/h transfuse as needed conservative rx dnr Subjective ROS Limited/Unobtainable: Yes Constitutional: Reports: malaise, weakness HEENT: Reports: no symptoms Cardiovascular: Reports: no symptoms Respiratory: Reports: shortness of breath Gastrointestinal/Abdominal: Reports: difficulty swallowing Genitourinary: Reports: no symptoms Neurologic/Psychiatric: Reports: pre-existing deficit Endocrine: Reports: no symptoms Hematologic/Lymphatic: Reports: anemia Allergies: Coded Allergies: No Known Allergies (Unverified , 01/07/17) All Systems: reviewed and negative except above Subjective no events. id noted. abx dcd- blood cultures likely contaminant. awake. no distress. Objective Last 24 Hour Vital Signs Date Time Temp Pulse Resp B/P (MAP) Pulse Ox O2 Delivery O2 Flow Rate FiO2 07/07/17 12:58 75 20 30 07/07/17 12:00 79 07/07/17 12:00 98.7 79 16 125/60 100 Mechanical Ventilator 07/07/17 12:00 30 07/07/17 11:06 77 20 30 07/07/17 09:21 76 22 30 07/07/17 09:11 81 130/62 07/07/17 08:00 81 07/07/17 08:00 30 07/07/17 08:00 98.8 78 20 130/62 100 Mechanical Ventilator 30 07/07/17 06:56 74 18 30 07/07/17 04:47 75 20 30 07/07/17 04:00 79 07/07/17 04:00 99.0 83 22 110/62 100 Mechanical Ventilator 30 07/07/17 04:00 30 07/07/17 03:30 71 20 30 07/07/17 01:30 74 20 30 07/07/17 00:00 83 07/07/17 00:00 98.7 70 22 113/58 100 Mechanical Ventilator 30 07/06/17 23:30 70 17 30 07/06/17 21:14 72 20 30 07/06/17 21:08 96 116/69 07/06/17 21:00 99.2 07/06/17 20:00 30 07/06/17 20:00 86 07/06/17 19:51 99.9 98 22 127/71 100 Mechanical Ventilator 30 07/06/17 19:30 75 22 30 07/06/17 17:26 80 22 30 07/06/17 16:00 98.7 98 22 115/64 100 Mechanical Ventilator 30 07/06/17 16:00 30 07/06/17 16:00 81 07/06/17 15:10 75 22 30 Intake and Output 07/07/17 07/08/17 19:00 07:00 Intake Total 110 ml Output Total 900 ml Balance -790 ml Tube Feeding 110 ml Output Urine Total 900 ml Laboratory Tests 07/07/17 10:15: Vancomycin Level Trough 15.9H Height (Feet): 5 Height (Inches): 10.00 Weight (Pounds): 162 Objective General Appearance: WD/WN, lethargic, confused Neck: supple Cardiovascular: normal rate Respiratory/Chest: lungs clear, normal breath sounds, no respiratory distress, no accessory muscle use Abdomen: normal bowel sounds, non tender, soft, no organomegaly, no mass Edema: no edema noted Arm (L), no edema noted Arm (R), no edema noted Leg (L), no edema noted Leg (R), no edema noted Pedal (L), no edema noted Pedal (R), no edema noted Generalized WENDIE CASTELLANOS Jul 07, 2017 14:48
--- NOTE | 2017-07-08 | Progress Note ---
DATE: 07/07/2017 CARDIOLOGY PROGRESS NOTE SUBJECTIVE: The patient is defervescing. Blood cultures were felt to be contaminant. Tracheostomy site with decreased secretions. Monitor with sinus rhythm and demand pacing. OBJECTIVE: VITAL SIGNS: Blood pressure 130/62, pulse 78, and respiratory rate 20. LUNGS: Coarse breath sounds. HEART: Regular rhythm and rate. Normal S1 and S2 with a fourth heart sound.r ABDOMEN: Soft. EXTREMITIES: Trace edema. IMPRESSION: 1. Recovering sepsis. 2. Multiplex decubitus. 3. Cerebrovascular disease with dementia. 4. Biotronik permanent pacemaker with stable function. 5. Hypertensive heart disease with controlled blood pressure and no signs of acute congestive heart failure. PLAN: Outpatient pacemaker interrogation will be arranged based on schedule. Continue beta-blockade. No additional cardiovascular studies presently indicated. Discharge medication regimen reviewed with Medicare physician. Stanislav Jain M.D. DR: BEKLIS JOB#: [id number] CC:
--- NOTE | 2017-07-08 | Progress Note ---
DATE: 07/07/2017 CARDIOLOGY PROGRESS NOTE SUBJECTIVE: The patient is defervescing. Blood cultures were felt to be contaminant. Tracheostomy site with decreased secretions. Monitor with sinus rhythm and demand pacing. OBJECTIVE: VITAL SIGNS: Blood pressure 130/62, pulse 78, and respiratory rate 20. LUNGS: Coarse breath sounds. HEART: Regular rhythm and rate. Normal S1 and S2 with a fourth heart sound.r ABDOMEN: Soft. EXTREMITIES: Trace edema. IMPRESSION: 1. Recovering sepsis. 2. Multiplex decubitus. 3. Cerebrovascular disease with dementia. 4. Biotronik permanent pacemaker with stable function. 5. Hypertensive heart disease with controlled blood pressure and no signs of acute congestive heart failure. PLAN: Outpatient pacemaker interrogation will be arranged based on schedule. Continue beta-blockade. No additional cardiovascular studies presently indicated. Discharge medication regimen reviewed with Medicare physician. Stanislav Jain M.D. DR: BELKIS JOB#: [id number] CC:
--- NOTE | 2017-07-08 00:45 | Consultation ---
DATE OF CONSULTATION: 07/06/2017 CARDIOLOGY CONSULTATION REQUESTING PHYSICIAN: Rajeev Carlos M.D. REASON FOR CONSULTATION: Cardiac arrhythmias with permanent pacemaker history several days ago. HISTORY OF PRESENT ILLNESS: This is an 82-year-old male, was transferred to the hospital for management of severe anemia. He has required blood transfusions. He has also been noted to be septic and is on IV antibiotics. I have been asked to address his cardiac status and specifically his permanent pacemaker. 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 MEDICATIONS: Current medications as well as medications prior to admission, I reviewed and reconciled. ALLERGIES: None. FAMILY HISTORY: Not known. SOCIAL HISTORY: No record of prior smoking, alcohol or substance abuse. REVIEW OF SYSTEMS: Not obtainable from patient, however, records review on prior hospitalizations as well as current long term chart is undertaken for 20 minutes and pertinent data as outlined above. PHYSICAL EXAMINATION: VITAL SIGNS: T-max of 101, presently 98.6, blood pressure 127/71, pulse 98, and respirations 22. The present temperature should be listed as 99.9. GENERAL: Ill appearing. NECK: Supple. Tracheostomy midline. LUNGS: Coarse breath sounds. HEART: Regular rhythm and rate. Normal S1, S2 with a fourth heart sound. Pacemaker pocket site clean and dry. ABDOMEN: G-tube site intact. Soft and nontender. EXTREMITIES: Without edema. Wounds are pictured in the chart. LABORATORY DATA: White count 10.6, hemoglobin 9. IMPRESSION: 1. Decubiti. 2. Dementia. 3. Fevers and sepsis. 4. Permanent pacemaker. 5. Conduction system disease of the heart. 6. Hypertensive heart disease. PLAN: 1. Antimicrobials. 2. Respiratory hygiene. 3. Nutrition by feeding tube. 4. Consider echocardiogram should there be any evidence of bacteremia so that may suggest an endovascular infection. 5. No role for antiarrhythmics. 6. Pacemaker interrogation to be arranged if not recently performed. Stanislav Jain M.D. DR: MADELIN JOB#: [id number] CC:
--- NOTE | 2017-07-09 15:38 | Discharge Summary ---
Discharge Summary Hospital Course Date of Admission Jul 02, 2017 at 23:48 Date of Discharge Jul 07, 2017 at 15:00 Admitting Diagnosis ANEMIA BONNIE Kruger is a 82 year old male who was admitted on Jul 02, 2017 at 23: 48 for Anemia Hospital Course [id number] Discharge Discharge Disposition Patient was discharged to SNF/Subacute Facility(03) Discharge Diagnoses: Jeanie Gonzalez NP Jul 09, 2017 15:38
--- NOTE | 2017-07-09 15:38 | Discharge Summary ---
Discharge Summary Hospital Course Date of Admission Jul 02, 2017 at 23:48 Date of Discharge Jul 07, 2017 at 15:00 Admitting Diagnosis ANEMIA BONNIE Kruger is a 82 year old male who was admitted on Jul 02, 2017 at 23: 48 for Anemia Hospital Course [id number] Discharge Discharge Disposition Patient was discharged to SNF/Subacute Facility(03) Discharge Diagnoses: Jeanie Gonzalez NP Jul 09, 2017 15:38
--- NOTE | 2017-07-09 15:38 | Discharge Summary ---
Discharge Summary Hospital Course Date of Admission Jul 02, 2017 at 23:48 Date of Discharge Jul 07, 2017 at 15:00 Admitting Diagnosis ANEMIA BONNIE Kruger is a 82 year old male who was admitted on Jul 02, 2017 at 23: 48 for Anemia Hospital Course [id number] Discharge Discharge Disposition Patient was discharged to SNF/Subacute Facility(03) Discharge Diagnoses: Jeanie Gonzalez NP Jul 09, 2017 15:38
--- NOTE | 2017-07-10 00:30 | Discharge Summary 2 SIG ---
DATE OF ADMISSION: 07/02/2017 DATE OF DISCHARGE: 07/07/2017 BRIEF HOSPITAL COURSE: The patient is an unfortunate 82-year-old male with history of dementia, encephalopathy, conduction system disease, status post pacemaker implantation, hypertension, anemia, and chronic kidney disease, was transferred from [facility] facility due to abnormal laboratories, specifically low hemoglobin. The patient had prior episodes of anemia, etiology of which was unclear as he had no obvious bleeding. On evaluation at ED, blood work showed hemoglobin 7.2 and hematocrit 23.9. WBC was 11. Chest x-ray showed no acute disease with a pacemaker noted on the left chest. EKG showed paced rhythm with T-wave inversions in leads III and aVF. He was admitted to [facility]. He was given a total of 3 units packed RBC blood transfusion. He has chronic respiratory failure, ventilator dependent, and has a DNR status. He was given respiratory care and vent support, and was started on IV vancomycin. He was seen by Podiatry and recommended wound care. He came in with multiple pressure sores and was given wound care and placed on low air loss P200 mattress. Blood culture showed growth of coagulase-negative Staph, suspect to be contaminant. He underwent echocardiogram that showed left ventricular ejection fraction of 50% to 55% with moderate mitral regurgitation and mild diastolic dysfunction. He was cleared for discharge on 07/06/2017; however, order was canceled as the patient spiked fever of 102.7. Cefepime was added to the patient's antibiotic regimen. He defervesced. He was eventually discharged to [facility]. He will eventually need outpatient pacemaker interrogation. FINAL DISPOSITION: The patient was discharged to [facility]. FINAL DIAGNOSES: 1. Acute anemia requiring blood transfusion. 2. Recovering sepsis. 3. Hypertensive heart disease. 4. Biotronik permanent pacemaker. 5. Cerebrovascular disease with dementia. 6. Acute toxic metabolic encephalopathy secondary to infection and metabolic derangement. 7. Chronic renal failure. 8. Paroxysmal atrial fibrillation. 9. Chronic obstructive pulmonary disease. 10. Possible gastrointestinal bleed. 11. Chronic respiratory failure, ventilator dependent. 12. Bacteremia, possible contaminant. 13. Multiple extremity wounds, unstageable and necrotic, present on admission. Jona Guerra M.D. I have been assigned to dictate discharge summary on this account and I was not involved in the patient's management. Jeanie Gonzalez N.P. DR: CONSUELO JOB#: [id number] CC: DANIELA
--- NOTE | 2017-07-10 00:30 | Discharge Summary 2 SIG ---
DATE OF ADMISSION: 07/02/2017 DATE OF DISCHARGE: 07/07/2017 BRIEF HOSPITAL COURSE: The patient is an unfortunate 82-year-old male with history of dementia, encephalopathy, conduction system disease, status post pacemaker implantation, hypertension, anemia, and chronic kidney disease, was transferred from [facility] due to abnormal laboratories, specifically low hemoglobin. The patient had prior episodes of anemia, etiology of which was unclear as he had no obvious bleeding. On evaluation at ED, blood work showed hemoglobin 7.2 and hematocrit 23.9. WBC was 11. Chest x-ray showed no acute disease with a pacemaker noted on the left chest. EKG showed paced rhythm with T-wave inversions in leads III and aVF. He was admitted to [facility]. He was given a total of 3 units packed RBC blood transfusion. He has chronic respiratory failure, ventilator dependent, and has a DNR status. He was given respiratory care and vent support, and was started on IV vancomycin. He was seen by Podiatry and recommended wound care. He came in with multiple pressure sores and was given wound care and placed on low air loss P200 mattress. Blood culture showed growth of coagulase-negative Staph, suspect to be contaminant. He underwent echocardiogram that showed left ventricular ejection fraction of 50% to 55% with moderate mitral regurgitation and mild diastolic dysfunction. He was cleared for discharge on 07/06/2017; however, order was canceled as the patient spiked fever of 102.7. Cefepime was added to the patient's antibiotic regimen. He defervesced. He was eventually discharged to [facility]. He will eventually need outpatient pacemaker interrogation. FINAL DISPOSITION: The patient was discharged to [facility]. FINAL DIAGNOSES: 1. Acute anemia requiring blood transfusion. 2. Recovering sepsis. 3. Hypertensive heart disease. 4. Biotronik permanent pacemaker. 5. Cerebrovascular disease with dementia. 6. Acute toxic metabolic encephalopathy secondary to infection and metabolic derangement. 7. Chronic renal failure. 8. Paroxysmal atrial fibrillation. 9. Chronic obstructive pulmonary disease. 10. Possible gastrointestinal bleed. 11. Chronic respiratory failure, ventilator dependent. 12. Bacteremia, possible contaminant. 13. Multiple extremity wounds, unstageable and necrotic, present on admission. Jona Guerra M.D. I have been assigned to dictate discharge summary on this account and I was not involved in the patient's management. Jeanie Gonzalez N.P. DR: CONSUELO JOB#: [id number] CC: DANIELA
--- NOTE | 2017-07-10 00:30 | Discharge Summary 2 SIG ---
DATE OF ADMISSION: 07/02/2017 DATE OF DISCHARGE: 07/07/2017 BRIEF HOSPITAL COURSE: The patient is an unfortunate 82-year-old male with history of dementia, encephalopathy, conduction system disease, status post pacemaker implantation, hypertension, anemia, and chronic kidney disease, was transferred from [facility] due to abnormal laboratories, specifically low hemoglobin. The patient had prior episodes of anemia, etiology of which was unclear as he had no obvious bleeding. On evaluation at ED, blood work showed hemoglobin 7.2 and hematocrit 23.9. WBC was 11. Chest x-ray showed no acute disease with a pacemaker noted on the left chest. EKG showed paced rhythm with T-wave inversions in leads III and aVF. He was admitted to [facility]. He was given a total of 3 units packed RBC blood transfusion. He has chronic respiratory failure, ventilator dependent, and has a DNR status. He was given respiratory care and vent support, and was started on IV vancomycin. He was seen by Podiatry and recommended wound care. He came in with multiple pressure sores and was given wound care and placed on low air loss P200 mattress. Blood culture showed growth of coagulase-negative Staph, suspect to be contaminant. He underwent echocardiogram that showed left ventricular ejection fraction of 50% to 55% with moderate mitral regurgitation and mild diastolic dysfunction. He was cleared for discharge on 07/06/2017; however, order was canceled as the patient spiked fever of 102.7. Cefepime was added to the patient's antibiotic regimen. He defervesced. He was eventually discharged to [facility]. He will eventually need outpatient pacemaker interrogation. FINAL DISPOSITION: The patient was discharged to [facility]. FINAL DIAGNOSES: 1. Acute anemia requiring blood transfusion. 2. Recovering sepsis. 3. Hypertensive heart disease. 4. Biotronik permanent pacemaker. 5. Cerebrovascular disease with dementia. 6. Acute toxic metabolic encephalopathy secondary to infection and metabolic derangement. 7. Chronic renal failure. 8. Paroxysmal atrial fibrillation. 9. Chronic obstructive pulmonary disease. 10. Possible gastrointestinal bleed. 11. Chronic respiratory failure, ventilator dependent. 12. Bacteremia, possible contaminant. 13. Multiple extremity wounds, unstageable and necrotic, present on admission. Jona Guerra M.D. I have been assigned to dictate discharge summary on this account and I was not involved in the patient's management. Jeanie Gonzalez N.P. DR: CONSUELO JOB#: [id number] CC: DANIELA
== END 2017-07-07 15:00 | DRG 870 ==
LOC: EDBD 21:00 → EMR 22:00 → EDBEDREQ 22:53 → 2W 23:48 → EDBEDREQ 07-03 00:09 → 2W 07-03 02:32
PROC: 5A1955Z Respiratory Ventilation, Greater than 96 Consecutive Hours (ICD-10-PCS; principal; 2017-07-02)
PROC: 30233N1 Transfusion of Nonautologous Red Blood Cells into Peripheral Vein, Percutaneous Approach (ICD-10-PCS; 2017-07-03)
DX: A41.9 Sepsis, unspecified organism (principal); G92 Toxic encephalopathy; I96 Gangrene, not elsewhere classified; Z99.11 Dependence on respirator [ventilator] status; J96.10 Chronic respiratory failure, unspecified whether with hypoxia or hypercapnia; L89.323 Pressure ulcer of left buttock, stage 3; L89.150 Pressure ulcer of sacral region, unstageable; Z43.1 Encounter for attention to gastrostomy; K92.2 Gastrointestinal hemorrhage, unspecified; M86.9 Osteomyelitis, unspecified; L89.220 Pressure ulcer of left hip, unstageable; J44.9 Chronic obstructive pulmonary disease, unspecified; Z43.0 Encounter for attention to tracheostomy; Z95.0 Presence of cardiac pacemaker; Z66 Do not resuscitate; E11.9 Type 2 diabetes mellitus without complications; Z86.73 Personal history of transient ischemic attack (TIA), and cerebral infarction without residual deficits; I48.0 Paroxysmal atrial fibrillation; D63.8 Anemia in other chronic diseases classified elsewhere; F01.50 Vascular dementia, unspecified severity, without behavioral disturbance, psychotic disturbance, mood disturbance, and anxiety; L89.890 Pressure ulcer of other site, unstageable; L89.620 Pressure ulcer of left heel, unstageable; L89.610 Pressure ulcer of right heel, unstageable; L89.520 Pressure ulcer of left ankle, unstageable; I13.10 Hypertensive heart and chronic kidney disease without heart failure, with stage 1 through stage 4 chronic kidney disease, or unspecified chronic kidney disease; N18.9 Chronic kidney disease, unspecified
CPT/HCPCS: 36415; 36430; 36600; 71010; 80053; 80202; 82550; 82553; 82803; 83605; 84484; 85007; 85025; 85610; 85730; 86850; 86900; 86901; 86920; 87040; 87081; 87181; 93005; 93306; 94002; 94003; 94664; 96360; 99284

== ENCOUNTER 2017-07-21 15:15 | Inpatient (IN) | payer MEDICARE, OTHER ==
[~2017-07-21] VITALS: Ht 182.9 cm; Wt 81.6 kg
[~2017-07-21 15:15] MED LIST changes: +ACETAMINOP160 MG/5 M ORAL
[2017-07-21 15:20] VITALS: BP 122/51
--- NOTE | 2017-07-21 15:34 | Emergency Room Report ---
History of Present Illness General Chief Complaint: Fever Source: Medical Record, EMS Present Illness HPI 82-year-old male, coming from [facility], DO NOT RESUSCITATE, trach with vent , PEG tube, htn, encephalopathy, anemia, PPM, presenting with fever. Per [facility] she was 100.6 axillary. Patient noted to have very loose stool. Recently DC'ed from hospital 07/09/17 for anemia, was xfused 3 units prbcs at that time. also had fever patient given vancomycin and cefepime. no source. Patient nonverbal no other history able to be obtained Allergies: Coded Allergies: No Known Allergies (Unverified , 01/07/17) Patient History Past Medical History: see triage record Past Surgical History: none Pertinent Family History: none Reviewed Nursing Documentation: PMH: Agreed, PSxH: Agreed Nursing Documentation-PMH Hx Cardiac Problems: Yes - Afib Hx Hypertension: Yes Hx Pacemaker: Yes Hx Asthma: Yes Hx COPD: Yes Hx Diabetes: Yes Hx Cancer: No Hx Gastrointestinal Problems: Yes Hx Dialysis: Yes Hx Neurological Problems: Yes Hx Dementia: Yes Hx Peripheral Neuropathy: Yes Hx Memory Loss: Yes Hx Concentration Difficulty: Yes Hx Speech Problem: Yes Hx Dysphasia: Yes Hx Weakness: Yes Review of Systems All Other Systems: limited - nonverbal Physical Exam Vital Signs Date Time Temp Pulse Resp B/P (MAP) Pulse Ox O2 Delivery O2 Flow Rate FiO2 07/21/17 15:03 100.6 99 25 122/51 99 Mechanical Ventilator 40 Sp02 EP Interpretation: abnormal - on vent General Appearance: other - chronically ill appearing, contracted, elderly male , vented Head: normocephalic, atraumatic Eyes: bilateral eye normal inspection, bilateral eye PERRL, bilateral eye EOMI ENT: other - trach'ed, moist mucous membranes Neck: other - trach'ed Respiratory: other - mechanical breath sounds b/l Cardiovascular #1: tachycardia Cardiovascular #2: 2+ radial (R), 2+ radial (L) Gastrointestinal: other - soft, peg tube in place, normal bowel sounds Genitourinary: no CVA tenderness Musculoskeletal: normal inspection, back normal, normal range of motion, non- tender Neurologic: other - contracted upper and lower extremities Psychiatric: normal inspection, judgement/insight normal, memory normal Skin: other - stage II decub sacral ulcers with clean dressing Procedures Critical Care Time Critical Care Time 40 minutes of CC time 82-year-old male, coming from [facility], trach,, presenting with fever VS: Afebrile, tachycardic, tachypneic Sepsis criteria met Trach'ed to vent PLAN: IV access, labs, lactate, Blood/Urine Cx, Abx Anticipate admission to [facility] CC time also includes review of labs, review of EMR, discussion with family and paperwork from SNF, d/w hospitalist CC could include dosing of pressors, additional Abx CC time does not include procedures Medical Decision Making Diagnostic Impression: Primary Impression: Severe sepsis Additional Impressions: Respiratory failure Tracheostomy dependence Anemia DNR (do not resuscitate) ER Course 82-year-old male, coming from [facility], DO NOT RESUSCITATE, trach, I2, presenting with fever DDX: Sepsis 2/2 UTI, PNA, bacteremia, will also consider intra-abdominal pathology such as colitis / diverticulitis / acalculous cholecystitis if no other course found but at this time abdomen soft, NT, ND. Plan: Trach to ventilator IV access - 30cc/kg bolus NS Obtain labs including cbc, bmp, blood culture, blood gas, lactate, ua, ucx CXR EKG Broad spectrum ABX ER course: Patient given NS at 30cc/kg bolus Patient's BP has remained stable with MAP > 65 Given broad spectrum abx source infection UTI vs. PNA Sepsis Re-examination Time: 4:45 pm VS: Temp 100 HR 103 BP 125/90 RR 19 CVS: RRR Respiratory: mechanical b/s b/l Peripheral pulses: 2+ radial Capillary refill: <2 seconds Skin exam: warm, dry, no rash, not mottled Disposition: Patient will admitted to [facility] Patient requires close monitoring of respiratory/hemodynamic status and continuation of IV antibiotics. D/W Hospitalist Dr Carlos (requested by Dr Guerra), accepted patient for admission Please note that this Emergency Department Report was dictated using Xirrussandblast or shotblast equipment tender technology software, occasionally this can lead to erroneous entry secondary to interpretation by the dictation equipment. EKG Diagnostic Results EP Interpretation: Yes Rate: Tachycardic Rhythm: NSR ST Segments: T-wave inversion noted in leads 3 and aVF, right axis deviation ASA given to patient: no Rhythm Strip EP Interpretation: Yes Rate: 100 Rhythm: NSR, no PVCs, no ectopy Chest X-ray CXR: Ordered: Yes 1 view Indication: AMS EP interpretation: Yes Interpretation: No consolidation, no effusion, no PTX, no acute cardiopulmonary disease Impression: No acute disease Electronically signed by Yaritza Omer MD Laboratory Tests Test 07/21/17 15:20 07/21/17 15:42 07/21/17 16:15 White Blood Count 12.7 K/UL (4.8-10.8) H Red Blood Count 2.67 M/UL (4.70-6.10) L Hemoglobin 7.7 G/DL (14.2-18.0) L Hematocrit 24.0 % (42.0-52.0) L Mean Corpuscular Volume 90 FL (80-99) Mean Corpuscular Hemoglobin 28.7 PG (27.0-31.0) Mean Corpuscular Hemoglobin Concent 31.9 G/DL (32.0-36.0) L Red Cell Distribution Width 17.0 % (11.6-14.8) H Platelet Count 472 K/UL (150-450) H Mean Platelet Volume 5.2 FL (6.5-10.1) L Neutrophils (%) (Auto) % (45.0-75.0) Lymphocytes (%) (Auto) % (20.0-45.0) Monocytes (%) (Auto) % (1.0-10.0) Eosinophils (%) (Auto) % (0.0-3.0) Basophils (%) (Auto) % (0.0-2.0) Neutrophils % (Manual) Pending Lymphocytes % (Manual) Pending Platelet Estimate Pending Platelet Morphology Pending Sodium Level 132 MMOL/L (136-145) L Potassium Level 4.1 MMOL/L (3.5-5.1) Chloride Level 98 MMOL/L (98-107) Carbon Dioxide Level 22 MMOL/L (21-32) Anion Gap 12 mmol/L (5-15) Blood Urea Nitrogen 53 mg/dL (7-18) H Creatinine 1.3 MG/DL (0.55-1.30) Estimate Glomerular Filtration Rate mL/min (>60) Glucose Level 189 MG/DL (74-106) H Lactic Acid Level 1.50 mmol/L (0.66-2.22) Calcium Level 8.0 MG/DL (8.5-10.1) L Total Bilirubin 0.3 MG/DL (0.2-1.0) Aspartate Amino Transferase (AST) 12 U/L (15-37) L Alanine Aminotransferase (ALT) 11 U/L (12-78) L Alkaline Phosphatase 133 U/L (46-116) H Troponin I 0.012 ng/mL (0.000-0.056) Pro-B-Type Natriuretic Peptide 19243 pg/mL (0-125) H Total Protein 6.9 G/DL (6.4-8.2) Albumin 1.0 G/DL (3.4-5.0) L Globulin 5.9 g/dL Albumin/Globulin Ratio 0.2 (1.0-2.7) L Urine Color Yellow Urine Appearance Clear Urine pH 8 (4.5-8.0) Urine Specific [place] 1.010 (1.005-1.035) Urine Protein 3+ (NEGATIVE) H Urine Glucose (UA) Negative (NEGATIVE) Urine Ketones Negative (NEGATIVE) Urine Occult Blood 2+ (NEGATIVE) H Urine Nitrite Negative (NEGATIVE) Urine Bilirubin Negative (NEGATIVE) Urine Urobilinogen Normal MG/DL (0.0-1.0) Urine Leukocyte Esterase 3+ (NEGATIVE) H Urine RBC 2-4 /HPF (0 - 0) H Urine WBC 5-10 /HPF (0 - 0) H Urine Squamous Epithelial Cells None /LPF (NONE/OCC) Urine Bacteria Few /HPF (NONE) Arterial Blood pH 7.457 (7.350-7.450) Arterial Blood Partial Pressure CO2 36.0 mmHg (35.0-45.0) Arterial Blood Partial Pressure O2 146.7 mmHg (75.0-100.0) H Arterial Blood HCO3 24.9 mmol/L (22.0-26.0) Arterial Blood Oxygen Saturation 98.8 % (92.0-98.0) H Arterial Blood Base Excess 1.0 Yosvany Test Positive Last Vital Signs Date Time Temp Pulse Resp B/P (MAP) Pulse Ox O2 Delivery O2 Flow Rate FiO2 07/21/17 15:28 101 23 Mechanical Ventilator 40 07/21/17 15:03 100.6 122/51 99 Disposition: ADMITTED INPATIENT Condition: Critical Yaritza Omer M.D. Jul 21, 2017 15:34
[2017-07-21] MEDS ORDERED: CLOTRIMAZOLE15 GM TOPIC (15:41)
[2017-07-21] MEDS ORDERED: VANCOMYCIN1 GM/2502 IVPB (15:41)
[2017-07-21] MEDS ORDERED: Cefepime HCl 2 GM in NS 110 ML IV ONE (15:45)
[2017-07-21] MEDS ORDERED: Vancomycin 1.5gm/D5W 250ml 250 ML IVPB ONE (15:45)
[2017-07-21] MEDS ORDERED: Acetaminophen 650 MG SUPP RECTAL ONE (15:45)
[2017-07-21 15:57] LABS: APPEARANCE,URINE CLEAR; KETONES,URINE NEGATIVE (NEGATIVE); LEUKOCYTE ESTERASE ,URINE 3+ (NEGATIVE); NITRITE,URINE NEGATIVE (NEGATIVE); PH,URINE 8 (4.5-8.0); PROTEIN,URINE 3+ (NEGATIVE); UROBILINOGEN,URINE NORMAL MG/DL (0.0-1.0)
[2017-07-21 16:04] LABS: MEAN CORPUSCULAR HEMOGLOBIN 28.7 PG (27.0-31.0); MEAN CORPUSCULAR HGB CONC 31.9 G/DL (32.0-36.0); MEAN CORPUSCULAR VOLUME 90 FL (80-99); MEAN PLATELET VOLUME 5.2 FL (6.5-10.1); PLATELET COUNT 472 K/UL (150-450); RED BLOOD COUNT 2.67 M/UL (4.70-6.10); WHITE BLOOD COUNT 12.7 K/UL (4.8-10.8)
[2017-07-21 16:11] LABS: BACTERIA,URINE FEW /HPF
[2017-07-21] MEDS ORDERED: Cefepime 2gm ONE (16:15)
[2017-07-21 16:21] LABS: ANION GAP 12 mmol/L (5-15); CARBON DIOXIDE 22 MMOL/L (21-32); CHLORIDE 98 MMOL/L (98-107); CREATININE 1.3 MG/DL (0.55-1.30); POTASSIUM 4.1 MMOL/L (3.5-5.1); SODIUM 132 MMOL/L (136-145)
[2017-07-21 16:27] LABS: ALANINE AMINOTRANSFERASE 11 U/L (12-78); ALBUMIN/GLOBULIN RATIO 0.2 (1.0-2.7); ASPARTATE AMINO TRANSFERASE 12 U/L (15-37); TOTAL PROTEIN 6.9 G/DL (6.4-8.2)
[2017-07-21 16:38] LABS: ABG ALLEN TEST POSITIVE
[2017-07-21 17:00] VITALS: BP 117/54
[2017-07-21 17:13] LABS: ANISOCYTOSIS 1+; BAND NEUTROPHILS % (MANUAL) 0 % (0-8); BASOPHILS % (MANUAL) 0 % (0-2); EOSINOPHILS % (MANUAL) 1 % (0-3); HYPOCHROMASIA 1+; LYMPHOCYTES % (MANUAL) 15 % (20-45); NEUTROPHILS % (MANUAL) 79 % (45-75); PLATELET ESTIMATE INCREASED; PLATELET MORPHOLOGY NORMAL; TOTAL CELLS COUNTED 100
[2017-07-21 18:37] VITALS: BP 121/67
[2017-07-21 19:35] VITALS: BP 107/61
--- NOTE | 2017-07-21 19:51 | Consultation ---
Consult Note Consult Note REASON FOR ADMISSION: anemia HISTORY OF PRESENT ILLNESS: 82-year-old male with history of multiple medical problems with recent admission for anemia. The patient is Do Not Resuscitate and was planned to be terminally extubated and placed on hospice. The patient was transferred to [facility] emergency room. for transfusion and decided to hold on hospice. Family has not wanted aggressive measures and initially had refused transfer. I was consulted to evaluate and recommend further and assist in ventilatory management. The patient was seen and evaluated. The patient was noted to have worsening anemia and has required transfusions in the past and most recently The patient is ventilator dependent, did have a recent G tube placed, and the patient has been tolerating feeds. He remains poorly responsive PAST MEDICAL HISTORY: Multiple comorbid conditions including CVA, paroxysmal atrial fibrillation, pacemaker, hypertension, diabetes, anemia, G-tube, tracheostomy, prior decubiti, contractures, and chronic encephalopathy. MEDICATIONS: Reviewed. ALLERGIES: Reviewed. SOCIAL HISTORY: The patient is nonsmoker and nondrinker. Essentially bedbound, ventilator dependent, fully dependent overall. DNR. resides at [place] REVIEW OF SYSTEMS: Unobtainable due to the patient's mental state. PHYSICAL EXAMINATION: GENERAL: Patient an ill appearing male, overall, chronically debilitated. HEENT: Overall negative. Pupils are sluggish. Tracheostomy midline. Carotid 2+. NECK: Supple. LUNGS: Coarse breath sounds. Moderate air entry. minimal rhonchi. CARDIAC: Normal S1 and S2, slightly distant without murmurs, rubs or gallops. ABDOMEN: Soft, nontender, and nondistended. Positive bowel sounds. G-tube in place. no HSM EXTREMITIES: No cyanosis, clubbing, or significant contractures. NEUROLOGICALLY: Poor mental status. Overall nonverbal. Date Time Temp Pulse Resp B/P (MAP) Pulse Ox O2 Delivery O2 Flow Rate FiO2 07/21/17 19:35 98.6 97 18 107/61 100 Mechanical Ventilator 40 07/21/17 18:37 100 23 121/67 100 Mechanical Ventilator 40 07/21/17 17:21 103 25 40 07/21/17 17:00 100.0 100 24 117/54 100 Mechanical Ventilator 40 07/21/17 17:00 100.0 07/21/17 15:28 101 23 Mechanical Ventilator 40 07/21/17 15:20 101.5 99 19 122/51 100 Mechanical Ventilator 40 07/21/17 15:16 101 22 40 07/21/17 15:15 40 07/21/17 15:03 100.6 99 25 122/51 99 Mechanical Ventilator 40 Intake and Output 07/21/17 07/22/17 19:00 07:00 Intake Total 110 ml Output Total 130 ml Balance -20 ml Intake IV Total 110 ml Output Urine Total 130 ml Laboratory Tests 07/21/17 15:20: White Blood Count 12.7H, Red Blood Count 2.67L, Hemoglobin 7.7L, Hematocrit 24.0L, Mean Corpuscular Volume 90, Mean Corpuscular Hemoglobin 28.7, Mean Corpuscular Hemoglobin Concent 31.9L, Red Cell Distribution Width 17.0H, Platelet Count 472H, Mean Platelet Volume 5.2L, Neutrophils (%) (Auto) , Lymphocytes (%) (Auto) , Monocytes (%) (Auto) , Eosinophils (%) (Auto) , Basophils (%) (Auto) , Differential Total Cells Counted 100, Neutrophils % ( Manual) 79H, Lymphocytes % (Manual) 15L, Monocytes % (Manual) 5, Eosinophils % ( Manual) 1, Basophils % (Manual) 0, Band Neutrophils 0, Platelet Estimate IncreasedH, Platelet Morphology Normal, Hypochromasia 1+, Anisocytosis 1+, Sodium Level 132L, Potassium Level 4.1, Chloride Level 98, Carbon Dioxide Level 22, Anion Gap 12, Blood Urea Nitrogen 53H, Creatinine 1.3, Estimat Glomerular Filtration Rate , Glucose Level 189H, Lactic Acid Level 1.50, Calcium Level 8.0L , Total Bilirubin 0.3, Aspartate Amino Transf (AST/SGOT) 12L, Alanine Aminotransferase (ALT/SGPT) 11L, Alkaline Phosphatase 133H, Troponin I 0.012, Pro-B-Type Natriuretic Peptide 55316F, Total Protein 6.9, Albumin 1.0L, Globulin 5.9, Albumin/Globulin Ratio 0.2L 07/21/17 15:42: Urine Color Yellow, Urine Appearance Clear, Urine pH 8, Urine Specific [place] 1.010, Urine Protein 3+H, Urine Glucose (UA) Negative, Urine Ketones Negative, Urine Occult Blood 2+H, Urine Nitrite Negative, Urine Bilirubin Negative, Urine Urobilinogen Normal, Urine Leukocyte Esterase 3+H, Urine RBC 2-4H, Urine WBC 5- 10H, Urine Squamous Epithelial Cells None, Urine Bacteria Few 07/21/17 16:15: Arterial Blood pH 7.457H, Arterial Blood Partial Pressure CO2 36.0, Arterial Blood Partial Pressure O2 146.7H, Arterial Blood HCO3 24.9, Arterial Blood Oxygen Saturation 98.8H, Arterial Blood Base Excess 1.0, Yosvany Test Positive IMPRESSION Anemia acute on chronic renal failure PVD respiratory failure trach GT chronic encephalopathy diabetes PLAN vent no wean transfuse monitor labs hydrate monitor lytes impression, plan, and exam edited and reviewed in detail care discussed with REJI KIRBY Jul 21, 2017 19:51
[2017-07-21 20:20] VITALS: BP 116/62
[2017-07-21] MEDS ORDERED: Albuterol ud Inhalation HHN PRN (21:30)
[2017-07-21] MEDS ORDERED: Milk of Magnesia 30ml Ud GT PRN (21:30)
[2017-07-21] MEDS ORDERED: Zosyn 3.375gm inj ONE (22:27)
[2017-07-21] MEDS: Heparin 5000 units/ml inj SUBQ SCH (22:40)
[2017-07-21] MEDS: Piperacillin/Tazobactam 3.375 GM in D5W 55 ML IVPB SCH (22:41)
[2017-07-22 04:13] VITALS: BP 125/67
--- NOTE | 2017-07-22 04:15 | Consultation ---
DATE OF CONSULTATION: 07/22/2017 CARDIOLOGY CONSULTATION REQUESTING PHYSICIAN: Rajeev Carlos M.D. REASON FOR CONSULTATION: Congestive heart failure. HISTORY OF PRESENT ILLNESS: This is an 82-year-old male, who resides at a long term facility and has ventilator-dependent respiratory failure with tracheostomy. He has advanced dementia with chronic encephalopathy and dysphagia requiring a feeding tube. He has had progressive anemia, some fevers, and was referred for further management. Concern has been raised over an elevated pro-natriuretic peptide assay and I have been asked to address the possibility of congestive heart failure and need for diuresis. PAST MEDICAL HISTORY: 1. Hypertension. 2. Paroxysmal atrial fibrillation. 3. Permanent pacemaker, which is a Biotronik device. 4. Chronic obstructive pulmonary disease. 5. Chronic anemia. 6. Chronic kidney disease. 7. Encephalopathy. 8. Peripheral neuropathy. 9. Dysphagia, gastrostomy tube. 10. Ventilator-dependent respiratory failure. ALLERGIES: None known. MEDICATIONS: Prior to admission, reviewed and reconciled. SOCIAL HISTORY: No record of smoking, alcohol, or substance abuse. FAMILY HISTORY: Noncontributory. REVIEW OF SYSTEMS: Not obtainable from patient. Pertinent data from review of records as outlined above. PHYSICAL EXAMINATION: VITAL SIGNS: Temperature 100.6, blood pressure 122/51, heart rate 99, and respiratory rate 25. HEENT: The patient is ill-appearing with contractures and temporal wasting. Dry mucous membranes. Trach site with thin secretions. LUNGS: With coarse breath sounds and rhonchi. CARDIAC: Irregularly irregular rhythm. Rapid rate. Normal S1 and S2. No murmur due to respiratory sounds can be auscultated. ABDOMEN: Distended, but soft with no tenderness, guarding, or rebound. G-tube intact. EXTREMITIES: With no edema. LABORATORY DATA: Troponin 0.012. Pro-natriuretic peptide 32,711. Glucose 189. Lactic acid 1.5. BUN 53, creatinine 1.3, sodium 132, potassium 4.1, bicarbonate 22, and albumin 1.0. White count 12.7 and hemoglobin 7.7. IMPRESSION: 1. Severe anemia. 2. Chronic respiratory failure. 3. Cerebrovascular disease with severe encephalopathy. 4. Prerenal azotemia, likely due to gastrointestinal bleeding. 5. Acute on chronic diastolic congestive heart failure. 6. Permanent pacemaker. 7. Paroxysmal atrial fibrillation. PLAN: 1. Packed red blood cell transfusion. 2. Concomitant diuresis. 3. Maintenance hydration. 4. Check for active GI bleeding. 5. Pacemaker interrogation. 6. We will follow and reassess his medication based on clinical parameters. Stanislav Jain M.D. DR: SANDEEP JOB#: [id number] CC:
[2017-07-22] MEDS ORDERED: Zosyn 3.375gm inj ONE (05:00)
[2017-07-22] MEDS: Piperacillin/Tazobactam 3.375 GM in D5W 55 ML IVPB SCH ×3 (05:30→19:31)
[2017-07-22 08:00] VITALS: BP 124/60
--- NOTE | 2017-07-22 08:38 | Pulmonology Progress Note ---
Assessment/Plan Assessment/Plan IMPRESSION Anemia acute on chronic renal failure PVD respiratory failure trach GT chronic encephalopathy diabetes PLAN vent as is no wean for now transfuse monitor labs for change and intervene monitor HH hydrate monitor lytes and recommend prognosis poor D/w Dr. Carlos impression, plan, and exam edited and reviewed in detail care discussed with RN Subjective ROS Limited/Unobtainable: Yes Allergies: Coded Allergies: No Known Allergies (Unverified , 01/07/17) Subjective care noted vent reviewed d/w Dr. Carlos Objective Last 24 Hour Vital Signs Date Time Temp Pulse Resp B/P (MAP) Pulse Ox O2 Delivery O2 Flow Rate FiO2 07/22/17 08:00 40 07/22/17 07:33 82 07/22/17 06:49 76 19 40 07/22/17 04:47 91 19 40 07/22/17 04:13 97.7 88 125/67 Mechanical Ventilator 07/22/17 04:00 88 07/22/17 04:00 40 07/22/17 02:53 90 18 40 07/22/17 01:03 92 19 40 07/22/17 00:00 40 07/22/17 00:00 89 07/22/17 00:00 40 07/21/17 23:33 96 07/21/17 23:29 40 07/21/17 23:03 91 22 40 07/21/17 21:17 94 21 Mechanical Ventilator 40 07/21/17 21:15 94 21 40 07/21/17 20:20 97.9 99 18 116/62 100 Mechanical Ventilator 40 07/21/17 20:20 40 07/21/17 19:57 98.6 97 18 107/61 100 Mechanical Ventilator 40 07/21/17 19:35 98.6 97 18 107/61 100 Mechanical Ventilator 40 07/21/17 19:30 95 20 40 07/21/17 19:30 Mechanical Ventilator 07/21/17 18:37 100 23 121/67 100 Mechanical Ventilator 40 07/21/17 17:21 103 25 40 07/21/17 17:00 100.0 100 24 117/54 100 Mechanical Ventilator 40 07/21/17 17:00 100.0 07/21/17 15:28 101 23 Mechanical Ventilator 40 07/21/17 15:20 101.5 99 19 122/51 100 Mechanical Ventilator 40 07/21/17 15:16 101 22 40 07/21/17 15:15 40 07/21/17 15:03 100.6 99 25 122/51 99 Mechanical Ventilator 40 Intake and Output 07/22/17 07/23/17 19:00 07:00 Intake Total 13.75 ml Balance 13.75 ml IV Total 13.75 ml Objective WDWN NAD trach clear breath sounds bilaterally without rhonchi or wheeze [id number] without MRG NABS nontender no HSM; GT no CC contractures skin changes noted nonfocal Laboratory Tests 07/21/17 15:20: White Blood Count 12.7H, Red Blood Count 2.67L, Hemoglobin 7.7L, Hematocrit 24.0L, Mean Corpuscular Volume 90, Mean Corpuscular Hemoglobin 28.7, Mean Corpuscular Hemoglobin Concent 31.9L, Red Cell Distribution Width 17.0H, Platelet Count 472H, Mean Platelet Volume 5.2L, Neutrophils (%) (Auto) , Lymphocytes (%) (Auto) , Monocytes (%) (Auto) , Eosinophils (%) (Auto) , Basophils (%) (Auto) , Differential Total Cells Counted 100, Neutrophils % ( Manual) 79H, Lymphocytes % (Manual) 15L, Monocytes % (Manual) 5, Eosinophils % ( Manual) 1, Basophils % (Manual) 0, Band Neutrophils 0, Platelet Estimate IncreasedH, Platelet Morphology Normal, Hypochromasia 1+, Anisocytosis 1+, Sodium Level 132L, Potassium Level 4.1, Chloride Level 98, Carbon Dioxide Level 22, Anion Gap 12, Blood Urea Nitrogen 53H, Creatinine 1.3, Estimat Glomerular Filtration Rate , Glucose Level 189H, Lactic Acid Level 1.50, Calcium Level 8.0L , Total Bilirubin 0.3, Aspartate Amino Transf (AST/SGOT) 12L, Alanine Aminotransferase (ALT/SGPT) 11L, Alkaline Phosphatase 133H, Troponin I 0.012, Pro-B-Type Natriuretic Peptide 60760U, Total Protein 6.9, Albumin 1.0L, Globulin 5.9, Albumin/Globulin Ratio 0.2L 07/21/17 15:42: Urine Color Yellow, Urine Appearance Clear, Urine pH 8, Urine Specific Stephen 1.010, Urine Protein 3+H, Urine Glucose (UA) Negative, Urine Ketones Negative, Urine Occult Blood 2+H, Urine Nitrite Negative, Urine Bilirubin Negative, Urine Urobilinogen Normal, Urine Leukocyte Esterase 3+H, Urine RBC 2-4H, Urine WBC 5- 10H, Urine Squamous Epithelial Cells None, Urine Bacteria Few 07/21/17 16:15: Arterial Blood pH 7.457H, Arterial Blood Partial Pressure CO2 36.0, Arterial Blood Partial Pressure O2 146.7H, Arterial Blood HCO3 24.9, Arterial Blood Oxygen Saturation 98.8H, Arterial Blood Base Excess 1.0, Yosvany Test Positive Current Medications Medications (Trade) Dose Ordered Sig/Subhash Route PRN Reason Start Time Stop Time Status Last Admin Dose Admin Acetaminophen (Tylenol Peds) 640 mg Q4H PRN ORAL MILD PAIN 1-3 07/22/17 09:00 08/21/17 08:59 Acetaminophen (Tylenol) 650 mg Q4HR PRN ORAL Mild Pain/Temp > 100.5 07/21/17 21:30 08/20/17 21:29 Albuterol Sulfate (Proventil) 2.5 mg Q6H PRN HHN Shortness of Breath 07/21/17 21:30 07/26/17 21:29 Atorvastatin Calcium (Lipitor) 10 mg BEDTIME GT 07/21/17 22:30 08/20/17 22:29 07/21/17 22:40 Bisacodyl (Dulcolax) 10 mg DAILYPRN PRN RECTAL Constipation 2nd Line Agent 07/21/17 21:30 08/20/17 21:29 Clotrimazole (Lotrimin) 1 applic TWICE A DAY TOPIC 07/22/17 09:00 08/21/17 08:59 Docusate Sodium (Colace) 100 mg DAILY GT 07/22/17 09:00 08/21/17 08:59 Finasteride (Proscar) 5 mg DAILY ORAL 07/22/17 09:00 08/21/17 08:59 Heparin Sodium (Porcine) (Heparin 5000 units/ml) 5,000 units EVERY 12 HOURS SUBQ 07/21/17 22:30 08/20/17 22:29 07/21/17 22:40 Lansoprazole (Prevacid) 30 mg DAILY GT 07/22/17 09:00 08/21/17 08:59 Magnesium Hydroxide (Mom) 30 ml DAILYPRN PRN GT CONSTIPATION 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 LINE AGENT 07/21/17 21:30 08/20/17 21:29 Metoprolol Tartrate (Lopressor) 50 mg EVERY 12 HOURS GT 07/22/17 09:00 08/21/17 08:59 Multivitamins (Multivitamins W/ Minerals 15ml Liquid) 15 ml DAILY GT 07/22/17 09:00 08/21/17 08:59 Non-Formulary Medication (Non-Formulary Med) 1 ea DAILY ORAL 07/22/17 09:00 08/21/17 08:59 UNV Piperacillin Sod/ Tazobactam Sod 3.375 gm/Dextrose 55 ml @ 13.75 mls/ hr Q8HR IVPB 07/21/17 23:00 07/28/17 22:59 07/22/17 05:30 Vancomycin HCl (Vanco rx to dose) 1 ea DAILY PRN MISC Per rx protocol 07/21/17 21:45 08/20/17 21:44 Vancomycin HCl 1 gm/Dextrose 275 ml @ 183.333 mls/hr DAILY@1800 IVPB 07/22/17 18:00 07/27/17 17:59 REJI OJEDA Jul 22, 2017 08:38
[2017-07-22] MEDS ORDERED: Metoprolol Succinate XL 50mg tab ORAL SCH (09:00)
[2017-07-22] MEDS ORDERED: Docusate 250mg cap ORAL SCH (09:00)
[2017-07-22] MEDS ORDERED: Acetaminophen Soln 160mg/5ml ORAL PRN (09:00)
[2017-07-22] MEDS ORDERED: Acetaminophen Soln 160mg/5ml ORAL SCH (09:00)
--- NOTE | 2017-07-22 09:04 | Diagnostic Imaging Report ---
Indication: Shortness of breath Technique: One view of the chest Comparison: 07/02/2017 Findings: The heart is enlarged. New or increased right-sided pleural effusion. There is increased interstitial edema bilaterally. Left chest pacemaker, tracheostomy remain. There are degenerative changes of the left shoulder Impression: Nor increased right pleural effusion Pulmonary interstitial edema, slightly greater than on prior exam Cardiomegaly Other findings as noted
[2017-07-22] MEDS: Docusate 100mg/10ml Liq GT SCH (09:19)
[2017-07-22] MEDS: Metoprolol Tartrate 50mg tab GT SCH ×2 (09:19→21:18)
[2017-07-22] MEDS: Multivitamins W/Minerals 15 ML UDC GT SCH (09:19)
[2017-07-22] MEDS: Heparin 5000 units/ml inj SUBQ SCH ×2 (09:21→21:21)
[2017-07-22 12:30] VITALS: BP 112/66
--- NOTE | 2017-07-22 13:03 | Wound Care Consultation ---
Wound Assessment Wound Assessment #1: Wound Number: 1 Wound Present on Admission: Yes New Wound: No Status Change of Wound: No Wound Location Body Site Modif: right Wound Location Body Site: buttocks Wound Type: pressure ulcer Anette Test: Does not Anette Pressure Ulcer Stage: III - scattered Wound Thickness: Full Thickness Wound Length: 8.0 Wound Width: 8.0 Wound Depth: 0.3 Percent of Wound [place]/Red: 90 - scattered Percent of Wound Bed Yellow/Wh: 5 - scattered Wound Drainage Description: Serosanguineous Wound Drainage Amount: Moderate Wound Drainage Odor: None/Absent Tissue Surrounding Wound: Macerated Wound General Appearance: Reddened, Draining, Necrotic Wound Assessment #2: Wound Number: 2 Wound Present on Admission: Yes New Wound: No Status Change of Wound: No Wound Location Body Site: coccyx Wound Type: pressure ulcer Anette Test: Does not Anette Pressure Ulcer Stage: Unstageable Wound Thickness: Full Thickness Wound Length: 10.0 Wound Width: 6.0 Wound Depth: utd Percent of Wound Bed Yellow/Wh: 100 Other Colors Identified: noted red and maroon DTI to periwound at risk for further skin breakdown Wound Drainage Description: Serosanguineous Wound Drainage Amount: Moderate Wound Drainage Odor: None/Absent Tissue Surrounding Wound: Macerated Wound General Appearance: Reddened - maroon, Draining, Necrotic Wound Assessment #3: Wound Number: 3 Wound Present on Admission: Yes New Wound: No Status Change of Wound: No Wound Location Body Site: sacral Wound Type: pressure ulcer Anette Test: Does not Anette Pressure Ulcer Stage: Unstageable Wound Thickness: Full Thickness Wound Length: 6.0 Wound Width: 5.0 Wound Depth: utd Percent of Wound Bed Yellow/Wh: 100 Other Colors Identified: red periwound noted. Wound Drainage Description: Serosanguineous Wound Drainage Amount: Moderate Wound Drainage Odor: None/Absent Tissue Surrounding Wound: Macerated Wound General Appearance: Reddened, Draining, Necrotic Wound Assessment #4: Wound Number: 4 Wound Present on Admission: Yes New Wound: No Status Change of Wound: No Wound Location Body Site Modif: right Wound Location Body Site: sacral - aspect of sacral Wound Type: pressure ulcer Anette Test: Does not Anette Pressure Ulcer Stage: Unstageable Wound Thickness: Full Thickness Wound Length: 5.0 Wound Width: 4.0 Wound Depth: utd Percent of Wound Bed Yellow/Wh: 100 Other Colors Identified: surrouding isabel wound red Wound Drainage Description: Serosanguineous Wound Drainage Amount: Moderate Wound Drainage Odor: None/Absent Tissue Surrounding Wound: Macerated Wound General Appearance: Reddened, Draining, Necrotic Wound Assessment #5: Wound Number: 5 Wound Present on Admission: Yes New Wound: No Status Change of Wound: No Wound Location Body Site Modif: left Wound Location Body Site: sacral - aspect of sacral Wound Type: pressure ulcer Anette Test: Does not Anette Pressure Ulcer Stage: III Wound Thickness: Full Thickness Wound Length: 2.0 Wound Width: 2.0 Wound Depth: 0.3 Percent of Wound [place]/Red: 100 Wound Drainage Description: Serosanguineous Wound Drainage Amount: Moderate Wound Drainage Odor: None/Absent Tissue Surrounding Wound: Macerated Wound General Appearance: Reddened, Draining Wound Assessment #6: Wound Number: 6 Wound Present on Admission: Yes New Wound: No Status Change of Wound: No Wound Location Body Site Modif: left Wound Location Body Site: ischial tuberosity Wound Type: pressure ulcer Anette Test: Does not Anette Pressure Ulcer Stage: Unstageable Wound Thickness: Full Thickness Wound Length: 8.0 Wound Width: 8.0 Wound Depth: utd Percent of Wound [place]/Red: 70 Percent of Wound Bed Yellow/Wh: 30 Wound Drainage Description: Serosanguineous Wound Drainage Amount: Moderate Wound Drainage Odor: None/Absent Tissue Surrounding Wound: Macerated Wound General Appearance: Reddened, Draining, Necrotic Wound Assessment #7: Wound Number: 7 Wound Present on Admission: Yes New Wound: No Status Change of Wound: No Wound Location Body Site Modif: left Wound Location Body Site: trochanter Wound Type: pressure ulcer Anette Test: Does not Anette Pressure Ulcer Stage: Unstageable Wound Thickness: Full Thickness Wound Length: 8.0 Wound Width: 9.0 Wound Depth: utd Percent of Wound Bed Yellow/Wh: 100 Wound Drainage Description: Serosanguineous Wound Drainage Amount: Copious Wound Drainage Odor: None/Absent Tissue Surrounding Wound: Macerated Wound General Appearance: Reddened, Draining, Necrotic, Bone Palpable Wound Assessment #8: Wound Number: 8 Wound Present on Admission: Yes New Wound: No Status Change of Wound: No Wound Location Body Site Modif: right, lateral Wound Location Body Site: knee Wound Type: pressure ulcer Anette Test: Does not Anette Pressure Ulcer Stage: Unstageable Wound Thickness: Full Thickness Wound Length: 1.5 Wound Width: 1.5 Wound Depth: utd Wound Drainage Description: Serosanguineous Wound Drainage Amount: Moderate Wound Drainage Odor: None/Absent Tissue Surrounding Wound: Macerated Wound General Appearance: Reddened, Draining, Necrotic Wound Assessment #9: Wound Number: 9 Wound Present on Admission: Yes New Wound: No Status Change of Wound: No Wound Location Body Site Modif: right, lower, lateral Wound Location Body Site: knee Wound Type: pressure ulcer Anette Test: Does not Anette Pressure Ulcer Stage: Unstageable Wound Thickness: Full Thickness Wound Length: 2.0 Wound Width: 2.0 Wound Depth: utd Percent of Wound Bed Yellow/Wh: 100 Wound Drainage Description: Serosanguineous Wound Drainage Amount: Moderate Wound Drainage Odor: None/Absent Tissue Surrounding Wound: Macerated Wound General Appearance: Reddened, Draining, Necrotic Wound Assessment #10: Wound Number: 10 Wound Present on Admission: Yes New Wound: No Status Change of Wound: No Wound Location Body Site Modif: right, anterior Wound Location Body Site: knee Wound Type: scab - scattered scabs Anette Test: Does not Anette Wound Thickness: Partial Thickness Percent of Wound Black/Brown: 100 Wound Drainage Amount: None Wound Drainage Odor: None/Absent Tissue Surrounding Wound: Intact Wound General Appearance: Blackened - scabs, Clean/Dry Wound Assessment #11: Wound Number: 11 Wound Present on Admission: Yes New Wound: No Status Change of Wound: No Wound Location Body Site Modif: right, lower, lateral Wound Location Body Site: leg - extending to malleolus Wound Type: pressure ulcer Anette Test: Does not Anette Pressure Ulcer Stage: Unstageable Wound Thickness: Full Thickness Wound Length: 10.0 Wound Width: 3.5 Wound Depth: utd Percent of Wound [place]/Red: 5 Percent of Wound Bed Yellow/Wh: 95 Wound Drainage Description: Serosanguineous Wound Drainage Amount: Moderate Wound Drainage Odor: None/Absent Tissue Surrounding Wound: Macerated Wound General Appearance: Reddened, Draining, Necrotic Wound Assessment #12: Wound Number: 12 Wound Present on Admission: Yes New Wound: No Status Change of Wound: No Wound Location Body Site Modif: left, dorsal Wound Location Body Site: foot - aspect of foot Wound Type: pressure ulcer Anette Test: Does not Anette Pressure Ulcer Stage: Unstageable Wound Thickness: Full Thickness Wound Length: 2.0 Wound Width: 2.0 Wound Depth: utd Percent of Wound Bed Yellow/Wh: 50 Percent of Wound Black/Brown: 50 Wound Drainage Description: Serosanguineous Wound Drainage Amount: Moderate Wound Drainage Odor: None/Absent Tissue Surrounding Wound: Erythemic Wound General Appearance: Reddened, Draining, Necrotic Wound Assessment #13: Wound Number: 13 Wound Present on Admission: Yes New Wound: No Status Change of Wound: No Wound Location Body Site Modif: left, medial Wound Location Body Site: foot Wound Type: scab - scattered Wound Thickness: Partial Thickness Percent of Wound Black/Brown: 100 - light brown Wound Drainage Amount: None Wound Drainage Odor: None/Absent Tissue Surrounding Wound: Intact Wound General Appearance: Open to air, Clean/Dry Wound Assessment #14: Wound Number: 14 Wound Present on Admission: Yes New Wound: No Status Change of Wound: No Wound Location Body Site Modif: left Wound Location Body Site: heel Wound Type: pressure ulcer Anette Test: Does not Anette Pressure Ulcer Stage: Unstageable - 4 Wound Thickness: Full Thickness Wound Length: 14.0 Wound Width: 14.0 Wound Depth: utd Percent of Wound Bed Yellow/Wh: 30 Percent of Wound Black/Brown: 70 Wound Drainage Description: Serosanguineous, Foul Purulent Wound Drainage Amount: Copious Wound Drainage Odor: Foul Odor Tissue Surrounding Wound: Macerated Wound General Appearance: Reddened, Blackened, Draining, Necrotic, Bone Palpable, Muscle Visible Wound Assessment #15: Wound Number: 15 Wound Present on Admission: Yes New Wound: No Status Change of Wound: No Wound Location Body Site Modif: left, lower, lateral Wound Location Body Site: leg - extending to malleolus Wound Type: pressure ulcer Anette Test: Does not Anette Pressure Ulcer Stage: Unstageable - 4 Wound Thickness: Full Thickness Wound Length: 16.0 Wound Width: 7.0 Wound Depth: utd Percent of Wound [place]/Red: 5 Percent of Wound Bed Yellow/Wh: 80 Percent of Wound Black/Brown: 15 Wound Drainage Description: Serosanguineous, Foul Purulent Wound Drainage Amount: Copious Wound Drainage Odor: Foul Odor Tissue Surrounding Wound: Macerated Wound General Appearance: Reddened, Draining, Necrotic Wound Assessment #16: Wound Number: 16 Wound Present on Admission: Yes New Wound: No Status Change of Wound: No Wound Location Body Site Modif: left, lateral - entire lateral Wound Location Body Site: foot Wound Type: pressure ulcer Anette Test: Does not Anette Pressure Ulcer Stage: Unstageable - 4 Wound Thickness: Full Thickness Wound Length: 13.0 Wound Width: 8.0 Wound Depth: utd Percent of Wound [place]/Red: 5 Percent of Wound Bed Yellow/Wh: 15 Percent of Wound Black/Brown: 80 Wound Drainage Description: Serosanguineous, Foul Purulent Wound Drainage Amount: Copious Wound Drainage Odor: Foul Odor Tissue Surrounding Wound: Macerated Wound General Appearance: Reddened, Draining, Necrotic, Muscle Visible Wound Assessment #17: Wound Number: 17 Wound Present on Admission: Yes New Wound: No Status Change of Wound: No Wound Location Body Site Modif: left Wound Location Body Site: knee Wound Type: scar - scattered Anette Test: Does not Anette Wound Thickness: Full Thickness Percent of Wound [place]/Red: 100 Wound Drainage Amount: None Wound Drainage Odor: None/Absent Tissue Surrounding Wound: Intact Wound General Appearance: Open to air, Clean/Dry Wound Assessment #18: Wound Number: 18 Wound Present on Admission: Yes New Wound: No Status Change of Wound: No Wound Location Body Site Modif: left, lower Wound Location Body Site: knee Wound Type: pressure ulcer Anette Test: Does not Anette Pressure Ulcer Stage: Unstageable Wound Thickness: Full Thickness Wound Length: 2.0 Wound Width: 2.0 Wound Depth: utd Percent of Wound Bed Yellow/Wh: 100 Wound Drainage Description: Serosanguineous Wound Drainage Amount: Scant Wound Drainage Odor: None/Absent Tissue Surrounding Wound: Erythemic Wound General Appearance: Reddened, Draining, Necrotic Wound Assessment #19: Wound Number: 19 Wound Present on Admission: Yes New Wound: No Status Change of Wound: No Wound Location Body Site Modif: left, anterior Wound Location Body Site: knee Wound Type: pressure ulcer Anette Test: Does not Anette Pressure Ulcer Stage: Unstageable Wound Thickness: Full Thickness Wound Length: 3.5 Wound Width: 4.0 Wound Depth: utd Percent of Wound Bed Yellow/Wh: 100 Wound Drainage Description: Serosanguineous Wound Drainage Amount: Moderate Wound Drainage Odor: None/Absent Tissue Surrounding Wound: Macerated Wound General Appearance: Reddened, Draining, Necrotic Wound Assessment #20: Wound Number: 20 Wound Present on Admission: Yes New Wound: No Status Change of Wound: No Wound Location Body Site Modif: right, lateral Wound Location Body Site: foot - entire left lateral foot extending to heel Wound Type: pressure ulcer Anette Test: Does not Anette Pressure Ulcer Stage: Unstageable - 4 Wound Thickness: Full Thickness Wound Length: 25.0 Wound Width: 17.0 Wound Depth: utd Percent of Wound Bed Yellow/Wh: 10 Percent of Wound Black/Brown: 90 Wound Drainage Description: Serosanguineous, Foul Purulent Wound Drainage Odor: Foul Odor Tissue Surrounding Wound: Macerated Wound General Appearance: Blackened, Draining, Necrotic Wound Assessment #21: Wound Present on Admission: Yes New Wound: No Status Change of Wound: No Wound Location Body Site Modif: right, dorsal - aspect of foot Wound Location Body Site: foot Wound Type: pressure ulcer Anette Test: Does not Anette Pressure Ulcer Stage: Deep Tissue Injury Wound Thickness: Full Thickness Wound Length: 2.0 Wound Width: 2.0 Wound Depth: utd Percent of Wound Purple/Maroon: 100 Wound Drainage Amount: None Wound Drainage Odor: None/Absent Tissue Surrounding Wound: Erythemic Wound General Appearance: Reddened Wound Assessment #22: Wound Number: 22 Wound Present on Admission: Yes New Wound: No Status Change of Wound: No Wound Location Body Site Modif: right, medial Wound Location Body Site: foot Wound Type: pressure ulcer Anette Test: Does not Anette Pressure Ulcer Stage: I - scattered Percent of Wound [place]/Red: 100 - scattered Wound Drainage Amount: None Wound Drainage Odor: None/Absent Tissue Surrounding Wound: Erythemic Wound General Appearance: Reddened Wound Assessment #23: Wound Number: 23 Wound Present on Admission: Yes New Wound: No Status Change of Wound: No Wound Location Body Site: other - scrotal Wound Type: chemical burn - with erosion Anette Test: Does not Anette Percent of Wound [place]/Red: 100 - scattered Wound Drainage Amount: None Wound Drainage Odor: None/Absent Tissue Surrounding Wound: Macerated Wound General Appearance: Reddened Wound Assessment #24: Wound Number: 24 Wound Present on Admission: Yes New Wound: No Status Change of Wound: No Wound Location Body Site: other - posterior back extending to arms scattered Wound Type: rash Percent of Wound [place]/Red: 100 Wound Drainage Amount: None Wound Drainage Odor: None/Absent Tissue Surrounding Wound: Erythemic Wound General Appearance: Reddened Wound Assessment #25: Wound Number: 25 Wound Present on Admission: Yes New Wound: No Status Change of Wound: No Wound Location Body Site Modif: left, anterior Wound Location Body Site: finger - 3rd middle Wound Type: traumatic injury - scab appearing Anette Test: Does not Anette Wound Thickness: Partial Thickness Wound Length: 1.0 Wound Width: 0.5 Percent of Wound Black/Brown: 100 - scab Wound Drainage Amount: None Wound Drainage Odor: None/Absent Tissue Surrounding Wound: Erythemic Wound General Appearance: Reddened - with scab Wound Assessment #26: Wound Number: 26 Wound Present on Admission: Yes New Wound: No Status Change of Wound: No Wound Location Body Site Modif: right, anterior Wound Location Body Site: hand Wound Type: traumatic injury - linear possible skin tears resolving scab appearing Anette Test: Does not Anette Wound Thickness: Partial Thickness Percent of Wound Black/Brown: 100 - scabs scattered Wound Drainage Amount: None Wound Drainage Odor: None/Absent Tissue Surrounding Wound: Intact Wound General Appearance: Clean/Dry Wound Assessment #27: Wound Number: 27 Wound Present on Admission: Yes New Wound: No Status Change of Wound: No Wound Location Body Site Modif: mid, lower, posterior Wound Location Body Site: back Wound Type: pressure ulcer Anette Test: Does not Anette Pressure Ulcer Stage: II Wound Thickness: Partial Thickness Wound Length: 1.0 Wound Width: 1.0 Wound Depth: 0.1 Percent of Wound [place]/Red: 100 Wound Drainage Description: Serosanguineous Wound Drainage Amount: Scant Wound Drainage Odor: None/Absent Tissue Surrounding Wound: Erythemic Wound General Appearance: Reddened Wound Comment patient has extensive wounds to bilateral feet, lower legs and heels, and sacral area follow with with attending MD for possible podiatry consult and possible consult with . followup with MD for rash #1 right buttock scattered stage 3 pressure ulcers. #2 coccyx unstageable pressure ulcer. #3 sacral unstageable pressure ulcer. #4 right aspect of sacral stage unstageable pressure ulcer #5 left aspect of sacral stage 3 pressure ulcer. #6 left ischial tuberosity unstageable pressure ulcer. #7 left trochanter unstageable pressure ulcer. #8 right lateral knee unstageable pressure ulcer. #9 right lateral lower knee unstageable pressure ulcer. #10 right anterior lower knee scattered scabs #11 right lateral lower leg extending to malleolus unstageable pressure ulcer. #12 left dorsal aspect of foot unstageable pressure ulcer. #13 left medial foot scattered scabs. #14 left heel unstageable pressure ulcer. #15 left lateral lower leg extending to malleolus unstageable pressure ulcer. #16 left lateral entire foot unstageable pressure ulcer. #17 left knee scattered scar tissue. #18 left lower knee unstageable pressure ulcer. #19 left anterior knee unstagebale pressure ulcer. #20 right lateral foot extending to heel unstageable pressure ulcer. #21 right dorsal aspect of foot deep tissue injury pressure ulcer. #22 right medial foot scattered stage 1 pressure ulcer. #23 scrotal chemical burn with erosion. #24 rash scattered to posterior back extending to left and right arm. #25 left 3rd middle finger traumatic injury-scab appearing #26 right anterior hand scattered linear skin tears scab appearing. #27 mid lower back stage 2 pressure ulcer . Recommendation. -Follow up with MD for possible consult with podiatry and Dr. Corrigan. - Apply p200 low air loss mattress for wound and skin management. - Turn and reposition. -Offload affected sites, -Keep clean and dry. -Optimize nutrition. -Heel protectors. -offload knee area. -Avoid shear or friction. -Assess and follow up with MD for any further changes of condition noted to skin. patient has extensive full thickness wounds at risk for further skin breakdown. CECE CARD Jul 22, 2017 13:03
[2017-07-22 16:00] VITALS: BP 126/62
--- NOTE | 2017-07-22 16:33 | Cardiology Report ---
APPROVED REPORT EKG Measurement Heart [id number] Sinus tachycardia Right axis deviation Nonspecific ST and T wave abnormality Abnormal ECG
--- NOTE | 2017-07-22 17:00 | Consultation ---
DATE OF CONSULTATION: 07/22/2017 INFECTIOUS DISEASES CONSULTATION CONSULTING PHYSICIAN: Ba Clemente M.D. REFERRING PHYSICIAN: Rajeev Carlos M.D. REASON FOR CONSULTATION: Pneumonia. HISTORY OF PRESENTING ILLNESS: This is an 82-year-old gentleman with history of respiratory failure, status post tracheostomy, CVA, atrial fibrillation, hypertension, and encephalopathy, who came in to [place] emergency room for transfusion. He was on hospice, but that was changed. An Infectious Diseases consultation has been obtained for antibiotics. PAST MEDICAL HISTORY: 1. History of CVA. 2. Atrial fibrillation. 3. Status post pacemaker placement. 4. Hypertension. 5. Diabetes. 6. Anemia. 7. Respiratory failure, status post tracheostomy placement. 8. Status post G-tube placement. 9. Contractures. 10. Encephalopathy. MEDICATIONS: As an inpatient, the patient is on IV vancomycin, docusate, Proscar, Prevacid, metoprolol, multivitamin, Tylenol, Lotrimin, Zosyn, Lipitor, subcutaneous heparin, Tylenol, albuterol, Dulcolax, and milk of magnesia. ALLERGIES: No known drug allergies. SOCIAL HISTORY: He does not smoke, drink, or use drugs. FAMILY HISTORY: Unknown. REVIEW OF SYSTEMS: Unable to obtain currently. PHYSICAL EXAMINATION: VITAL SIGNS: Temperature of 98.2, T-max of 101.5 degrees, pulse of 67, respiratory rate of 19, blood pressure 124/60, and O2 saturation of 100%. HEENT: Pupils equally reactive to light and accommodation. Mouth appears clean without thrush. NECK: Supple. No adenopathy. No JVD. Tracheostomy site is clean CARDIOVASCULAR: Regular rate and rhythm. No murmurs. LUNGS: Clear to auscultation bilaterally. No crackles. No wheezes. ABDOMEN: Soft and nontender. No organomegaly. G-tube site appears clean. EXTREMITIES: No cyanosis, no clubbing, no edema. LABORATORY DATA: White count 12.7, hemoglobin 7.7, hematocrit 24, MCV 90, and platelet count of 472,000 with neutrophils of 79%. Sodium 132, potassium 4.1, chloride 98, bicarbonate 22, BUN 53, creatinine 1.3, glucose 189, and calcium of 8. Total bilirubin 0.3. AST 12, ALT 11, and alkaline phosphatase 133. Troponin 0.012. Total protein 6.9. Albumin of 1. UA is showing 5 to 10 white cells. Blood cultures growing gram-positive cocci in clusters. Wound cultures from the right foot is pending. Chest x-ray is showing increased right-sided pleural effusion and pulmonary interstitial edema. ASSESSMENT: 1. This is an 82-year-old gentleman with history of cerebrovascular accident and respiratory failure, status post tracheostomy, who comes in now and is found to have a gram-positive sepsis. 2. Hypertension. 3. Status post pacemaker placement. PLAN: 1. Continue vancomycin and Zosyn. 2. We will order urine cultures and sputum cultures. 3. We will follow up cultures and adjust antibiotics accordingly. I would like to thank, Dr. Carlos, for this consultation. Ba Clemente M.D. DR: DALJIT JOB#: [id number] CC: Rajeev Carlos M.D.
[2017-07-22] MEDS: Vancomycin 1 GM in D5W 275 ML IVPB SCH (17:40)
[2017-07-22 20:00] VITALS: BP 113/60
--- NOTE | 2017-07-22 20:45 | History and Physical Report ---
DATE OF ADMISSION: 07/21/2017 CHIEF COMPLAINT: Sepsis, gangrene of the lower extremities, history of conduction system disease and pacemaker, and chronic respiratory failure. HISTORY OF PRESENT ILLNESS: The patient is an unfortunate 82-year-old male. 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 He was recently supposed hospice, but at the last minute, the patient's declined. He had fevers and worsening wounds of the lower extremities, was transferred to the emergency room. On evaluation there, he was pancultured. He was on a white count of 13,000 and hemoglobin of 7. He has been started on broad-spectrum antibiotic therapy. He is now admitted for further evaluation and care. PAST MEDICAL HISTORY: Significant for history of COPD, chronic respiratory failure, history of anemia, chronic kidney disease, and encephalopathy. PAST SURGICAL HISTORY: Includes history of pacemaker, G-tube, and trach. CURRENT MEDICATIONS: Reconciled and reviewed. ALLERGIES: None. FAMILY HISTORY: Unknown. SOCIAL HISTORY: There is no known history of tobacco, ethanol, or drugs. REVIEW OF SYSTEMS: From the patient is unobtainable. PHYSICAL EXAMINATION: VITAL SIGNS: Temperature 98 degrees, blood pressure 140/76, pulse of 80, and respirations 20. GENERAL: The patient is a chronic ill-appearing male, in no apparent distress. HEENT: He does open his eyes. The oropharynx is clear. NECK: Supple. Trach site was midline. HEART: Regular rate and rhythm. LUNGS: Clear. ABDOMEN: Soft, nontender, and nondistended. SKIN: The patient has multiple pressure ulcers on the sacrum, the hips, and the lower extremities. PERTINENT DATA: White count was 28739 and hemoglobin 7.7. ASSESSMENT: This is an unfortunate male with a history of chronic respiratory failure, encephalopathy, conduction system disease, status post pacemaker, admitted with sepsis secondary to multiple gangrenous wounds of the lower extremities. PLAN: Broad-spectrum antibiotics. Followup cultures. Plastic surgery consultation. The patient will be transfused. Care was discussed with the patient's daughter. She feels that the patient should be made comfort measures only, but the patient's has declined. The is the primary decision maker. The patient's overall prognosis remains poor. Rajeev Carlos M.D. DR: MARY JOB#: [id number] CC:
[2017-07-22] MEDS: Dakin's 0.25% (Half Strength) 16oz TOPIC SCH (21:19)
--- NOTE | 2017-07-22 23:45 | Progress Note ---
DATE: 07/22/2017 CARDIOLOGY PROGRESS NOTE SUBJECTIVE: The patient remains ventilated. Transfusion of packed red blood cells for severe anemia was given. OBJECTIVE: GENERAL: Thin appearing. Trach site midline. Thin secretions. VITAL SIGNS: Afebrile, blood pressure 140/76, pulse 80, respiratory rate 20. LUNGS: Bilateral breath sounds. Few rhonchi. HEART: Regular rhythm and rate. Normal S1 and S2 with a fourth heart sound. ABDOMEN: Soft. EXTREMITIES: Trace edema. Pacemaker pocket site clean and dry. IMPRESSION: 1. Respiratory failure. 2. Tracheostomy. 3. Chronic encephalopathy. 4. Permanent pacemaker. 5. Paroxysmal atrial fibrillation. 6. Sepsis. 7. Lower extremity wounds and gangrene. 8. Anemia. 9. Prerenal azotemia. 10. Acute and chronic diastolic congestive heart failure. PLAN: 1. Transfuse. 2. Monitor volume status. 3. Hold diuretics at this time. 4. Pacemaker interrogation. 5. Ventilator support. 6. Antimicrobials and respiratory hygiene. Stanislav Jain M.D. DR: BELKIS JOB#: [id number] CC:
[2017-07-23] VITALS: BP 108/57
[2017-07-23 04:00] VITALS: BP 100/54
[2017-07-23] MEDS: Piperacillin/Tazobactam 3.375 GM in D5W 55 ML IVPB SCH ×2 (06:05→14:48)
--- NOTE | 2017-07-23 07:53 | Pulmonology Progress Note ---
Assessment/Plan Assessment/Plan IMPRESSION Anemia acute on chronic renal failure PVD respiratory failure trach GT chronic encephalopathy diabetes PLAN vent as is for now no wean for now transfused and monitor suction as needed monitor labs for change and intervene monitor HH hydrate monitor lytes and recommend prognosis poor would need surgery but not a candidate D/w Dr. Carlos impression, plan, and exam edited and reviewed in detail care discussed with RN Subjective ROS Limited/Unobtainable: Yes Allergies: Coded Allergies: No Known Allergies (Unverified , 01/07/17) Subjective care noted vent reviewed and d/w RT d/w Dr. Carlos Objective Last 24 Hour Vital Signs Date Time Temp Pulse Resp B/P (MAP) Pulse Ox O2 Delivery O2 Flow Rate FiO2 07/23/17 07:01 82 23 40 07/23/17 05:25 76 22 40 07/23/17 04:00 40 07/23/17 04:00 79 07/23/17 04:00 97.7 65 22 100/54 100 Mechanical Ventilator 40 07/23/17 03:05 69 23 40 07/23/17 01:19 69 19 40 07/23/17 00:00 70 07/23/17 00:00 97.7 65 24 108/57 100 Mechanical Ventilator 40 07/23/17 00:00 40 07/22/17 23:01 88 19 40 07/22/17 21:18 74 113/60 07/22/17 21:10 74 21 40 07/22/17 20:00 98.8 80 20 113/60 97 Mechanical Ventilator 40 07/22/17 20:00 40 07/22/17 20:00 76 07/22/17 19:01 81 21 40 07/22/17 17:26 86 19 40 07/22/17 16:21 80 07/22/17 16:00 40 07/22/17 16:00 98.6 62 25 126/62 99 Mechanical Ventilator 40 07/22/17 14:55 79 19 40 07/22/17 13:27 72 19 40 07/22/17 12:30 98.4 72 22 112/66 100 Mechanical Ventilator 40 07/22/17 12:00 40 07/22/17 11:32 75 07/22/17 11:03 67 19 40 07/22/17 09:38 84 19 40 07/22/17 09:19 82 124/60 07/22/17 08:00 98.2 82 20 124/60 100 Mechanical Ventilator 40 07/22/17 08:00 40 Objective WDWN NAD trach clear breath sounds bilaterally without rhonchi or wheeze [id number] without MRG NABS nontender no HSM; GT no CC contractures skin changes noted nonfocal Microbiology Date/Time Source Procedure Growth Status 07/21/17 15:30 Blood Blood Culture - Preliminary Resulted 07/21/17 15:20 Blood Blood Culture - Preliminary Staphylococcus Species Resulted 07/21/17 22:00 Foot Right Gram Stain - Final Resulted 07/21/17 22:00 Foot Right Wound Culture Pending Resulted Current Medications Medications (Trade) Dose Ordered Sig/Subhash Route PRN Reason Start Time Stop Time Status Last Admin Dose Admin Acetaminophen (Tylenol) 650 mg Q4H PRN GT Temp > 100.5 07/22/17 16:15 08/20/17 21:29 Acetaminophen (Tylenol) 650 mg Q4H PRN GT MILD PAIN 1-3 07/22/17 16:15 08/21/17 08:59 Albuterol Sulfate (Proventil) 2.5 mg Q6H PRN HHN Shortness of Breath 07/21/17 21:30 07/26/17 21:29 Atorvastatin Calcium (Lipitor) 10 mg BEDTIME GT 07/21/17 22:30 08/20/17 22:29 07/22/17 21:18 Bisacodyl (Dulcolax) 10 mg DAILYPRN PRN RECTAL Constipation 2nd Line Agent 07/21/17 21:30 08/20/17 21:29 Clotrimazole (Lotrimin) 1 applic TWICE A DAY TOPIC 07/22/17 09:00 08/21/17 08:59 07/22/17 17:40 Docusate Sodium (Colace) 100 mg DAILY GT 07/22/17 09:00 08/21/17 08:59 07/22/17 09:19 Finasteride (Proscar) 5 mg DAILY ORAL 07/22/17 09:00 08/21/17 08:59 07/22/17 09:19 Heparin Sodium (Porcine) (Heparin 5000 units/ml) 5,000 units EVERY 12 HOURS SUBQ 07/21/17 22:30 08/20/17 22:29 11/15/17 21:21 Lansoprazole (Prevacid) 30 mg DAILY GT 07/22/17 09:00 08/21/17 08:59 07/22/17 09:19 Magnesium Hydroxide (Mom) 30 ml DAILYPRN PRN GT CONSTIPATION 1ST LINE AGENT 07/21/17 21:30 08/20/17 21:29 Metoprolol Tartrate (Lopressor) 50 mg EVERY 12 HOURS GT 07/22/17 09:00 08/21/17 08:59 07/22/17 21:18 Multivitamins (Multivitamins W/ Minerals 15ml Liquid) 15 ml DAILY GT 07/22/17 09:00 08/21/17 08:59 07/22/17 09:19 Non-Formulary Medication (Non-Formulary Med) 1 ea DAILY ORAL 07/22/17 09:00 08/21/17 08:59 UNV Piperacillin Sod/ Tazobactam Sod 3.375 gm/Dextrose 55 ml @ 13.75 mls/ hr Q8HR IVPB 07/21/17 23:00 07/28/17 22:59 07/23/17 06:05 Sodium Hypochlorite (Dakin's Half Strength) 1 applic BEDTIME TOPIC 07/22/17 21:00 08/22/17 08:59 07/22/17 21:19 Vancomycin HCl (Vanco rx to dose) 1 ea DAILY PRN MISC Per rx protocol 07/21/17 21:45 08/20/17 21:44 Vancomycin HCl 1 gm/Dextrose 275 ml @ 183.333 mls/hr DAILY@1800 IVPB 07/22/17 18:00 07/27/17 17:59 07/22/17 17:40 REJI OJEDA Jul 23, 2017 07:53
[2017-07-23 08:00] VITALS: BP 117/58
[2017-07-23] MEDS: Metoprolol Tartrate 50mg tab GT SCH ×2 (08:54→20:42)
[2017-07-23] MEDS: Multivitamins W/Minerals 15 ML UDC GT SCH (08:54)
[2017-07-23] MEDS: Docusate 100mg/10ml Liq GT SCH (08:55)
[2017-07-23] MEDS ORDERED: Dakin's 0.25% (Half Strength) 16oz TOPIC SCH (09:00)
[2017-07-23] MEDS: Heparin 5000 units/ml inj SUBQ SCH ×2 (09:01→20:45)
--- NOTE | 2017-07-23 10:09 | Infectious Diseases Prog Note ---
Assessment/Plan Assessment/Plan A: Sepsis Bacteremia Necrotic Pressure ulcers of legs with osteomyelitis VDRF DM Anemia P: Continue Zosyn & Vancomycin will f/u cultures Waiting for surgical evaluation Subjective ROS Limited/Unobtainable: Yes Allergies: Coded Allergies: No Known Allergies (Unverified , 01/07/17) Objective Vital Signs Last 24 Hour Vital Signs Date Time Temp Pulse Resp B/P (MAP) Pulse Ox O2 Delivery O2 Flow Rate FiO2 07/23/17 09:02 74 22 40 07/23/17 08:54 78 117/58 07/23/17 08:00 81 07/23/17 08:00 98.6 78 22 117/58 100 Mechanical Ventilator 40 07/23/17 08:00 40 07/23/17 07:01 82 23 40 07/23/17 05:25 76 22 40 07/23/17 04:00 40 07/23/17 04:00 79 07/23/17 04:00 97.7 65 22 100/54 100 Mechanical Ventilator 40 07/23/17 03:05 69 23 40 07/23/17 01:19 69 19 40 07/23/17 00:00 70 07/23/17 00:00 97.7 65 24 108/57 100 Mechanical Ventilator 40 07/23/17 00:00 40 07/22/17 23:01 88 19 40 07/22/17 21:18 74 113/60 07/22/17 21:10 74 21 40 07/22/17 20:00 98.8 80 20 113/60 97 Mechanical Ventilator 40 07/22/17 20:00 40 07/22/17 20:00 76 07/22/17 19:01 81 21 40 07/22/17 17:26 86 19 40 07/22/17 16:21 80 07/22/17 16:00 40 07/22/17 16:00 98.6 62 25 126/62 99 Mechanical Ventilator 40 07/22/17 14:55 79 19 40 07/22/17 13:27 72 19 40 07/22/17 12:30 98.4 72 22 112/66 100 Mechanical Ventilator 40 07/22/17 12:00 40 07/22/17 11:32 75 07/22/17 11:03 67 19 40 Height (Feet): 6 Height (Inches): 0.00 Weight (Pounds): 180 HEENT: status post trach Respiratory/Chest: lungs clear, other - on ventilator Cardiovascular: normal rate Abdomen: soft, non tender, other - GT feeding Extremities: no edema, other - contracted Skin: ulcers, other - muliple pressures ucer in back & lower extremities, gangrene in lower extremities L>R Neurologic/Psychiatric: unresponsiveness Microbiology Date/Time Source Procedure Growth Status 07/21/17 15:30 Blood Blood Culture - Preliminary Resulted 07/21/17 15:20 Blood Blood Culture - Preliminary Staphylococcus Species Resulted 07/22/17 12:10 Urine,Clean Catch Urine Culture - Preliminary Resulted 07/21/17 22:00 Foot Right Gram Stain - Final Resulted 07/21/17 22:00 Wound Culture - Preliminary Gram Negative Bacillus 1 Resulted 07/21/17 15:40 Rectum VRE Culture - Final Enterococcus Faecalis - Vre Enterococcus Faecium - Vre Complete Current Medications Medications (Trade) Dose Ordered Sig/Subhash Route PRN Reason Start Time Stop Time Status Last Admin Dose Admin Acetaminophen (Tylenol) 650 mg Q4H PRN GT Temp > 100.5 07/22/17 16:15 08/20/17 21:29 Acetaminophen (Tylenol) 650 mg Q4H PRN GT MILD PAIN 1-3 07/22/17 16:15 08/21/17 08:59 Albuterol Sulfate (Proventil) 2.5 mg Q6H PRN HHN Shortness of Breath 07/21/17 21:30 07/26/17 21:29 Atorvastatin Calcium (Lipitor) 10 mg BEDTIME GT 07/21/17 22:30 08/20/17 22:29 07/22/17 21:18 Bisacodyl (Dulcolax) 10 mg DAILYPRN PRN RECTAL Constipation 2nd Line Agent 07/21/17 21:30 08/20/17 21:29 Clotrimazole (Lotrimin) 1 applic TWICE A DAY TOPIC 07/22/17 09:00 08/21/17 08:59 07/23/17 08:56 Docusate Sodium (Colace) 100 mg DAILY GT 07/22/17 09:00 08/21/17 08:59 07/22/17 09:19 Finasteride (Proscar) 5 mg DAILY ORAL 07/22/17 09:00 08/21/17 08:59 07/23/17 08:55 Heparin Sodium (Porcine) (Heparin 5000 units/ml) 5,000 units EVERY 12 HOURS SUBQ 07/21/17 22:30 08/20/17 22:29 07/23/17 09:01 Lansoprazole (Prevacid) 30 mg DAILY GT 07/22/17 09:00 08/21/17 08:59 07/23/17 08:54 Magnesium Hydroxide (Mom) 30 ml DAILYPRN PRN GT CONSTIPATION 1ST LINE AGENT 07/21/17 21:30 08/20/17 21:29 Metoprolol Tartrate (Lopressor) 50 mg EVERY 12 HOURS GT 07/22/17 09:00 08/21/17 08:59 07/23/17 08:54 Multivitamins (Multivitamins W/ Minerals 15ml Liquid) 15 ml DAILY GT 07/22/17 09:00 08/21/17 08:59 07/23/17 08:54 Non-Formulary Medication (Non-Formulary Med) 1 ea DAILY ORAL 07/22/17 09:00 08/21/17 08:59 UNV Piperacillin Sod/ Tazobactam Sod 3.375 gm/Dextrose 55 ml @ 13.75 mls/ hr Q8HR IVPB 07/21/17 23:00 07/28/17 22:59 07/23/17 06:05 Sodium Hypochlorite (Dakin's Half Strength) 1 applic BEDTIME TOPIC 07/22/17 21:00 08/22/17 08:59 07/22/17 21:19 Vancomycin HCl (Vanco rx to dose) 1 ea DAILY PRN MISC Per rx protocol 07/21/17 21:45 08/20/17 21:44 Vancomycin HCl 1 gm/Dextrose 275 ml @ 183.333 mls/hr DAILY@1800 IVPB 07/22/17 18:00 07/27/17 17:59 07/22/17 17:40 ABDOULAYE ALFONSO Jul 23, 2017 10:09
[2017-07-23 12:00] VITALS: BP 105/61
[2017-07-23 12:50] LABS: BASOPHILS % (AUTO) 0.6 % (0.0-2.0); EOSINOPHILS % (AUTO) 1.3 % (0.0-3.0); LYMPHOCYTES % (AUTO) 14.4 % (20.0-45.0); MEAN CORPUSCULAR HEMOGLOBIN 28.8 PG (27.0-31.0); MEAN CORPUSCULAR HGB CONC 32.2 G/DL (32.0-36.0); MEAN CORPUSCULAR VOLUME 89 FL (80-99); MEAN PLATELET VOLUME 4.9 FL (6.5-10.1); MONOCYTES % (AUTO) 6.6 % (1.0-10.0); NEUTROPHILS % (AUTO) 77.2 % (45.0-75.0); PLATELET COUNT 443 K/UL (150-450); RED BLOOD COUNT 3.17 M/UL (4.70-6.10); RED CELL DISTRIBUTION WIDTH 16.3 % (11.6-14.8); WHITE BLOOD COUNT 11.5 K/UL (4.8-10.8)
[2017-07-23 13:13] LABS: ALANINE AMINOTRANSFERASE 12 U/L (12-78); ALBUMIN/GLOBULIN RATIO 0.2 (1.0-2.7); ANION GAP 8 mmol/L (5-15); ASPARTATE AMINO TRANSFERASE 14 U/L (15-37); CALCIUM 8.4 MG/DL (8.5-10.1); CARBON DIOXIDE 24 MMOL/L (21-32); CHLORIDE 103 MMOL/L (98-107); CREATININE 1.5 MG/DL (0.55-1.30); POTASSIUM 4.4 MMOL/L (3.5-5.1); SODIUM 135 MMOL/L (136-145); TOTAL PROTEIN 7.1 G/DL (6.4-8.2)
--- NOTE | 2017-07-23 13:42 | General Progress Note ---
Assessment/Plan Problem List: (1) Sepsis ICD Codes: A41.9 - Sepsis, unspecified organism SNOMED: 73743627 (2) Bacteremia ICD Codes: R78.81 - Bacteremia SNOMED: 9297860 (3) Pressure ulcer, heel ICD Codes: L89.609 - Pressure ulcer of unspecified heel, unspecified stage SNOMED: 873910041 (4) Pacemaker ICD Codes: Z95.0 - Presence of cardiac pacemaker SNOMED: 095773180, 562770925 (5) Abnormal laboratory test ICD Codes: R89.9 - Unspecified abnormal finding in specimens from other organs , systems and tissues SNOMED: 868673600 (6) Anemia ICD Codes: D64.9 - Anemia, unspecified SNOMED: 608508471 (7) Tracheostomy dependence ICD Codes: Z93.0 - Tracheostomy status; R65.20 - Severe sepsis without septic shock SNOMED: 646712188, 385678406 (8) Severe sepsis ICD Codes: A41.9 - Sepsis, unspecified organism; R65.20 - Severe sepsis without septic shock SNOMED: 85676910 Status: stable Assessment/Plan IV abx follow up cultures wound care wound eval vent resp rx gt feeds poor prognosis left message with . no call back. d/w dtr- she does not want to make any decision for pt Subjective ROS Limited/Unobtainable: Yes Constitutional: Reports: malaise, weakness HEENT: Reports: no symptoms Cardiovascular: Reports: no symptoms Respiratory: Reports: cough, shortness of breath Gastrointestinal/Abdominal: Reports: difficulty swallowing Genitourinary: Reports: no symptoms Neurologic/Psychiatric: Reports: no symptoms Endocrine: Reports: no symptoms Hematologic/Lymphatic: Reports: anemia Allergies: Coded Allergies: No Known Allergies (Unverified , 01/07/17) All Systems: reviewed and negative except above Subjective no events. no change. on the vent. s/p 2 units prbcs. no bleeding noted. Objective Last 24 Hour Vital Signs Date Time Temp Pulse Resp B/P (MAP) Pulse Ox O2 Delivery O2 Flow Rate FiO2 07/23/17 12:53 81 20 40 07/23/17 12:00 98.2 78 22 105/61 97 Mechanical Ventilator 40 07/23/17 12:00 77 07/23/17 12:00 40 07/23/17 11:00 78 23 40 07/23/17 09:02 74 22 40 07/23/17 08:54 78 117/58 07/23/17 08:00 81 07/23/17 08:00 98.6 78 22 117/58 100 Mechanical Ventilator 40 07/23/17 08:00 40 07/23/17 07:01 82 23 40 07/23/17 05:25 76 22 40 07/23/17 04:00 40 07/23/17 04:00 79 07/23/17 04:00 97.7 65 22 100/54 100 Mechanical Ventilator 40 07/23/17 03:05 69 23 40 07/23/17 01:19 69 19 40 07/23/17 00:00 70 07/23/17 00:00 97.7 65 24 108/57 100 Mechanical Ventilator 40 07/23/17 00:00 40 07/22/17 23:01 88 19 40 07/22/17 21:18 74 113/60 07/22/17 21:10 74 21 40 07/22/17 20:00 98.8 80 20 113/60 97 Mechanical Ventilator 40 07/22/17 20:00 40 07/22/17 20:00 76 07/22/17 19:01 81 21 40 07/22/17 17:26 86 19 40 07/22/17 16:21 80 07/22/17 16:00 40 07/22/17 16:00 98.6 62 25 126/62 99 Mechanical Ventilator 40 07/22/17 14:55 79 19 40 Intake and Output 07/23/17 07/24/17 19:00 07:00 Intake Total 300 ml Balance 300 ml Intake Free Water 100 ml Tube Feeding 200 ml # Bowel Movements 2 Laboratory Tests 07/23/17 12:30: White Blood Count 11.5H, Red Blood Count 3.17L, Hemoglobin 9.1L, Hematocrit 28.3L, Mean Corpuscular Volume 89, Mean Corpuscular Hemoglobin 28.8, Mean Corpuscular Hemoglobin Concent 32.2, Red Cell Distribution Width 16.3H, Platelet Count 443, Mean Platelet Volume 4.9L, Neutrophils (%) (Auto) 77.2H, Lymphocytes (%) (Auto) 14.4L, Monocytes (%) (Auto) 6.6, Eosinophils (%) (Auto) 1.3, Basophils (%) (Auto) 0.6, Sodium Level 135L, Potassium Level 4.4, Chloride Level 103, Carbon Dioxide Level 24, Anion Gap 8, Blood Urea Nitrogen 49H, Creatinine 1.5H, Estimat Glomerular Filtration Rate , Glucose Level 211H, Calcium Level 8.4L, Total Bilirubin 0.5, Aspartate Amino Transf (AST/SGOT) 14L, Alanine Aminotransferase (ALT/SGPT) 12, Alkaline Phosphatase 140H, Total Protein 7.1, Albumin 1.1L, Globulin 6.0, Albumin/Globulin Ratio 0.2L Height (Feet): 6 Height (Inches): 0.00 Weight (Pounds): 180 General Appearance: WD/WN, confused, cachetic, thin Cardiovascular: normal rate, regular rhythm Respiratory/Chest: chest wall non-tender, lungs clear, normal breath sounds Abdomen: normal bowel sounds, non tender, soft, no organomegaly Edema: no edema noted Arm (L), no edema noted Arm (R), no edema noted Leg (L), no edema noted Leg (R), no edema noted Pedal (L), no edema noted Pedal (R), no edema noted Generalized Neurologic: disoriented, unresponsive, aphasia Objective multiple wounds on hips,buttcoks and LE WENDIE CASTELLANOS Jul 23, 2017 13:42
[2017-07-23 16:00] VITALS: BP 124/61
[2017-07-23] MEDS: Vancomycin 1 GM in D5W 275 ML IVPB SCH (18:00)
--- NOTE | 2017-07-23 18:40 | Consultation ---
History of Present Illness General Date patient seen: Jul 23, 2017 Time patient seen: 18:28 Chief Complaint: Fever Referring physician: Dr. Carlos Reason for Consultation: Necrotic ulcers of the LE and buttocks Present Illness HPI Asked top evaluate this 82 yom who was [place] [facility] [place]. He was noted to have gangrenous wounds of b/l feet as well as pressure ulcers of the sacrum and left buttock. Patient is bedridden with severe flexion contractures of the knees. He is on a ventilator and fed through feeding tube. He was noted to be anemic and transfused. He is also being followed by cardiology for fluid management/CHF as well. Patient is nonverbal and all history obtained from medical records. It is unclear how long he has had these ulcers on his feet and LE. Allergies: Coded Allergies: No Known Allergies (Unverified , 01/07/17) Medication History Scheduled Acetaminophen 160MG/5ML* (Acetaminophen*), 10 ML ORAL THREE TIMES A DAY, ( Reported) Atorvastatin Calcium* (Lipitor*), 10 MG GT BEDTIME, (Reported) Bisacodyl* (Dulcolax*), 10 MG RECTAL DAILY, (Reported) Clotrimazole* (Lotrimin*), 1 APPLIC TOPIC TWICE A DAY, (Reported) Docusate Sodium* (Docusate Sodium*), 100 MG GT DAILY, (Reported) Docusate Sodium* (Colace*), 100 MG GT DAILY, (Reported) Epoetin José (Epogen), 10,000 UNIT SUBQ 3XW, (Reported) Ferrous Sulfate* (Ferrous Sulfate*), 325 MG GT DAILY, (Reported) Finasteride* (Proscar*), 5 MG GT DAILY, (Reported) Heparin Sod (Porcine) (Heparin Sodium*), 5,000 UNITS SUBQ EVERY 12 HOURS, ( Reported) Lansoprazole* (Lansoprazole*), 50 MG GT DAILY, (Reported) Lansoprazole* (Lansoprazole*), 30 MG GT DAILY, (Reported) Metoprolol Succinate* (Metoprolol Succinate*), 50 MG GT EVERY 12 HOURS, ( Reported) Metoprolol Tartrate* (Metoprolol Tartrate*), 50 MG GT EVERY 12 HOURS, (Reported) Metronidazole* (Flagyl*), 500 MG GT EVERY 8 HOURS, (Reported) Multivitamin With Minerals (Multivitamins With Minerals*), 1 TAB GT DAILY, ( Reported) Na Phos,M-B/Na Phos,Di-Ba* (Fleet Enema*), 133 ML RECTAL DAILY, (Reported) Sitagliptin* (Januvia*), 50 MG GT DAILY, (Reported) Tamsulosin HCl (Flomax), 0.4 MG GT DAILY, (Reported) Vancomycin Hcl/D5w (Vancomycin-D5w 1 G/250 Ml), 1 GM IVPB Q24H, (Reported) [ProMod ], 30 ML GT TID, (Reported) Scheduled PRN Acetaminophen* (Acetaminophen 325MG Tablet*), 650 MG ORAL Q4HR PRN for Mild Pain /Temp > 100.5, (Reported) Albuterol Sulfate* (Albuterol Sulfate Hhn*), 3 ML INH Q6H PRN for Shortness of Breath, (Reported) Bisacodyl (Dulcolax), 10 MG RC PRN PRN for Constipation, (Reported) Magnesium Hydroxide* (Milk Of Magnesia*), 30 ML GT DAILY PRN for PRN, (Reported) Na Phos,M-B/Na Phos,Di-Ba (Fleet Enema), 133 ML RC PRN PRN for Constipation, ( Reported) Zolpidem Tartrate* (Zolpidem Tartrate*), 5 MG GT BEDTIME PRN for Insomnia, ( Reported) [mylanta ], 30 ML GT for Abdominal cramps, (Reported) Miscellaneous Medications Chlorhexidine Gluconate* (Hibiclens*), 118 ML TP, (Reported) Patient History Healthcare decision maker N Resuscitation status Full Code Advanced Directive on File Physical Exam General Appearance: no apparent distress, thin Lines, tubes and drains: peripheral, trach, gtube Cardiovascular/Chest: other - Pedal pulses not palpable on either foot. Feet are warm. Extremities: other - Severe flexion contracture. 2+ pedal edema b/l Skin Exam: other - Feet with necrotic and gangrenous wounds along the plantar aspect of both feet extending to the lateral aspect of the foot. Bone is visible and loose with odor present. No erythema or warmth and no crepitus. Right heel with dry adherent eschar. Left lateral lower leg with large wound with exposed tendon. Significant flexion contracture of both knees with the calves pressed firmly against the posterior thighs. Sacrum with unstageable pressure ulcer with eschar adherent. Left lateral buttock with unstageable pressure ulcer with eschar adherent. Last 24 Hour Vital Signs Date Time Temp Pulse Resp B/P (MAP) Pulse Ox O2 Delivery O2 Flow Rate FiO2 07/23/17 16:33 75 20 40 07/23/17 16:00 77 07/23/17 16:00 40 07/23/17 16:00 98.6 72 18 124/61 100 Mechanical Ventilator 40 07/23/17 14:57 71 23 40 07/23/17 12:53 81 20 40 07/23/17 12:00 98.2 78 22 105/61 97 Mechanical Ventilator 40 07/23/17 12:00 77 07/23/17 12:00 40 07/23/17 11:00 78 23 40 07/23/17 09:02 74 22 40 07/23/17 08:54 78 117/58 07/23/17 08:00 81 07/23/17 08:00 98.6 78 22 117/58 100 Mechanical Ventilator 40 07/23/17 08:00 40 07/23/17 07:01 82 23 40 07/23/17 05:25 76 22 40 07/23/17 04:00 40 07/23/17 04:00 79 07/23/17 04:00 97.7 65 22 100/54 100 Mechanical Ventilator 40 07/23/17 03:05 69 23 40 07/23/17 01:19 69 19 40 07/23/17 00:00 70 07/23/17 00:00 97.7 65 24 108/57 100 Mechanical Ventilator 40 07/23/17 00:00 40 07/22/17 23:01 88 19 40 07/22/17 21:18 74 113/60 07/22/17 21:10 74 21 40 07/22/17 20:00 98.8 80 20 113/60 97 Mechanical Ventilator 40 07/22/17 20:00 40 07/22/17 20:00 76 07/22/17 19:01 81 21 40 Intake and Output 07/23/17 07/24/17 19:00 07:00 Intake Total 505.00 ml Balance 505.00 ml Intake Free Water 100 ml IV Total 55.00 ml Tube Feeding 350 ml # Bowel Movements 3 Laboratory Tests Test 07/23/17 12:30 07/23/17 17:00 White Blood Count 11.5 K/UL (4.8-10.8) H Red Blood Count 3.17 M/UL (4.70-6.10) L Hemoglobin 9.1 G/DL (14.2-18.0) L Hematocrit 28.3 % (42.0-52.0) L Mean Corpuscular Volume 89 FL (80-99) Mean Corpuscular Hemoglobin 28.8 PG (27.0-31.0) Mean Corpuscular Hemoglobin Concent 32.2 G/DL (32.0-36.0) Red Cell Distribution Width 16.3 % (11.6-14.8) H Platelet Count 443 K/UL (150-450) Mean Platelet Volume 4.9 FL (6.5-10.1) L Neutrophils (%) (Auto) 77.2 % (45.0-75.0) H Lymphocytes (%) (Auto) 14.4 % (20.0-45.0) L Monocytes (%) (Auto) 6.6 % (1.0-10.0) Eosinophils (%) (Auto) 1.3 % (0.0-3.0) Basophils (%) (Auto) 0.6 % (0.0-2.0) Sodium Level 135 MMOL/L (136-145) L Potassium Level 4.4 MMOL/L (3.5-5.1) Chloride Level 103 MMOL/L (98-107) Carbon Dioxide Level 24 MMOL/L (21-32) Anion Gap 8 mmol/L (5-15) Blood Urea Nitrogen 49 mg/dL (7-18) H Creatinine 1.5 MG/DL (0.55-1.30) H Estimat Glomerular Filtration Rate mL/min (>60) Glucose Level 211 MG/DL (74-106) H Calcium Level 8.4 MG/DL (8.5-10.1) L Total Bilirubin 0.5 MG/DL (0.2-1.0) Aspartate Amino Transf (AST/SGOT) 14 U/L (15-37) L Alanine Aminotransferase (ALT/SGPT) 12 U/L (12-78) Alkaline Phosphatase 140 U/L (46-116) H Total Protein 7.1 G/DL (6.4-8.2) Albumin 1.1 G/DL (3.4-5.0) L Globulin 6.0 g/dL Albumin/Globulin Ratio 0.2 (1.0-2.7) L Vancomycin Level Trough 16.1 ug/mL (5.0-12.0) H Height (Feet): 6 Height (Inches): 0.00 Weight (Pounds): 180 Medications Current Medications Medications (Trade) Dose Ordered Sig/Subhash Route PRN Reason Start Time Stop Time Status Last Admin Dose Admin Acetaminophen (Tylenol) 650 mg Q4H PRN GT Temp > 100.5 07/22/17 16:15 08/20/17 21:29 Acetaminophen (Tylenol) 650 mg Q4H PRN GT MILD PAIN 1-3 07/22/17 16:15 08/21/17 08:59 Albuterol Sulfate (Proventil) 2.5 mg Q6H PRN HHN Shortness of Breath 07/21/17 21:30 07/26/17 21:29 Atorvastatin Calcium (Lipitor) 10 mg BEDTIME GT 07/21/17 22:30 08/20/17 22:29 07/22/17 21:18 Bisacodyl (Dulcolax) 10 mg DAILYPRN PRN RECTAL Constipation 2nd Line Agent 07/21/17 21:30 08/20/17 21:29 Clotrimazole (Lotrimin) 1 applic TWICE A DAY TOPIC 07/22/17 09:00 08/21/17 08:59 07/23/17 08:56 Finasteride (Proscar) 5 mg DAILY ORAL 07/22/17 09:00 08/21/17 08:59 07/23/17 08:55 Heparin Sodium (Porcine) (Heparin 5000 units/ml) 5,000 units EVERY 12 HOURS SUBQ 07/21/17 22:30 08/20/17 22:29 07/23/17 09:01 Lansoprazole (Prevacid) 30 mg DAILY GT 07/22/17 09:00 08/21/17 08:59 07/23/17 08:54 Magnesium Hydroxide (Mom) 30 ml DAILYPRN PRN GT CONSTIPATION 1ST LINE AGENT 07/21/17 21:30 08/20/17 21:29 Metoprolol Tartrate (Lopressor) 50 mg EVERY 12 HOURS GT 07/22/17 09:00 08/21/17 08:59 07/23/17 08:54 Multivitamins (Multivitamins W/ Minerals 15ml Liquid) 15 ml DAILY GT 07/22/17 09:00 08/21/17 08:59 07/23/17 08:54 Non-Formulary Medication (Non-Formulary Med) 1 ea DAILY ORAL 07/22/17 09:00 08/21/17 08:59 UNV Piperacillin Sod/ Tazobactam Sod 3.375 gm/Dextrose 55 ml @ 13.75 mls/ hr Q8HR IVPB 07/21/17 23:00 07/28/17 22:59 07/23/17 14:48 Sodium Hypochlorite (Dakin's Half Strength) 1 applic BEDTIME TOPIC 07/22/17 21:00 08/22/17 08:59 07/22/17 21:19 Vancomycin HCl (Vanco rx to dose) 1 ea DAILY PRN MISC Per rx protocol 07/21/17 21:45 08/20/17 21:44 Vancomycin/Sodium Chloride 250 ml @ 166.667 mls/hr Q24H IVPB 07/23/17 20:00 07/28/17 19:59 Assessment/Plan Assessment/Plan Patient with multiple wounds over the trunk and LE. The most critical ulcers are the feet ulcers. Given the severity of the wounds on his feet, the severity of his flexion contractures at the knees, and the fact that he is non ambulatory , the appropriate surgical intervention for his foot wounds are bilateral above knee amputations. Need to determine if he is cardiovascularly stable for anesthesia. In addition, need to discuss with the who is the medical decision maker regarding whether she wants to proceed down this route vs comfort care. Apparently the patient was recently made hospice status but then was taken off hospice status by the . The degree to which accelerated care is to be pursued needs to be delineated and determined by the . Overall the patient's prognosis is poor. Discussed case with Dr. Carlos. ZULMA BARRIOS Jul 23, 2017 18:40
[2017-07-23 20:00] VITALS: BP 129/71
[2017-07-23] MEDS ORDERED: Vancomycin 750mg/NS 250ml IVPB SCH (20:00)
--- NOTE | 2017-07-23 20:30 | Progress Note ---
DATE: 07/23/2017 CARDIOLOGY PROGRESS NOTE SUBJECTIVE: The patient remains on ventilator support. No new bleeding noted. He is status post packed red blood cell transfusions. Monitored rhythm, sinus. OBJECTIVE: VITAL SIGNS: Blood pressure 105/61, pulse 78, respiratory rate 22, and afebrile. NECK: Supple. LUNGS: With coarse breath sounds. CARDIAC: Regular rhythm and rate. Normal S1 and S2. ABDOMEN: Soft. G-tube intact. Trach site with thin secretions. EXTREMITIES: Trace edema. LABORATORY DATA: White count 11.5 and hemoglobin 9.1. Potassium 4.4, BUN 49, and creatinine 1.5. Albumin 1.1. Potassium 4.4. IMPRESSION: 1. Sepsis. 2. Bacteremia. 3. Osteomyelitis. 4. Ventilator-dependent respiratory failure. 5. Permanent pacemaker. 6. Paroxysmal atrial fibrillation. 7. Chronic diastolic congestive heart failure. 8. Anemia, multifactorial. PLAN: 1. Antimicrobials. 2. Transfuse for hemoglobin less than 8 g if symptomatic. 3. Ventilator support. 4. Pacemaker interrogation to be arranged. 5. Skin care. 6. Monitor cardiorenal parameters and volume status. 7. No diuretic presently indicated. 8. May need to hydrate by IV route if continued increase in renal parameters. 9. Continue beta-blockade. 10. Withhold parameters for low blood pressure. Stanislav Jain M.D. DR: SANDEEP JOB#: [id number] CC:
[2017-07-23] MEDS: Dakin's 0.25% (Half Strength) 16oz TOPIC SCH (20:46)
[2017-07-24] VITALS: BP 117/60
[2017-07-24] MEDS: Piperacillin/Tazobactam 3.375 GM in D5W 55 ML IVPB SCH ×4 (00:07→21:59)
[2017-07-24] MEDS: Acetaminophen 650mg/20.3ml GT PRN (00:57)
[2017-07-24 04:00] VITALS: BP 119/61
[2017-07-24 08:00] VITALS: BP 110/42
--- NOTE | 2017-07-24 09:09 | Pulmonology Progress Note ---
Assessment/Plan Assessment/Plan IMPRESSION Anemia acute on chronic renal failure PVD respiratory failure trach GT chronic encephalopathy diabetes PLAN vent as is for now no wean for now transfused and monitor suction as needed monitor labs for change and intervene monitor HH hydrate and monitor monitor lytes and recommend prognosis poor for meaningful recovery would need surgery but not a candidate D/w Dr. Carlos impression, plan, and exam edited and reviewed in detail care discussed with RN Subjective ROS Limited/Unobtainable: Yes Allergies: Coded Allergies: No Known Allergies (Unverified , 01/07/17) Subjective care noted vent reviewed and d/w RT d/w Dr. Carlos some secretions noted Objective Last 24 Hour Vital Signs Date Time Temp Pulse Resp B/P (MAP) Pulse Ox O2 Delivery O2 Flow Rate FiO2 07/24/17 08:00 98.8 74 17 110/42 99 07/24/17 07:01 73 21 40 07/24/17 05:23 69 19 40 07/24/17 04:00 97.8 69 18 119/61 100 Mechanical Ventilator 40 07/24/17 04:00 68 07/24/17 04:00 40 07/24/17 03:22 74 20 40 07/24/17 01:27 98.0 07/24/17 00:31 71 20 40 07/24/17 00:00 40 07/24/17 00:00 100.1 71 20 117/60 100 Mechanical Ventilator 40 07/24/17 00:00 87 07/23/17 23:24 67 19 40 07/23/17 21:13 69 20 40 07/23/17 20:42 77 124/61 07/23/17 20:00 99.2 82 24 129/71 100 Mechanical Ventilator 40 07/23/17 20:00 77 07/23/17 20:00 40 07/23/17 18:59 77 23 40 07/23/17 16:33 75 20 40 07/23/17 16:00 77 07/23/17 16:00 40 07/23/17 16:00 98.6 72 18 124/61 100 Mechanical Ventilator 40 07/23/17 14:57 71 23 40 07/23/17 12:53 81 20 40 07/23/17 12:00 98.2 78 22 105/61 97 Mechanical Ventilator 40 07/23/17 12:00 77 07/23/17 12:00 40 07/23/17 11:00 78 23 40 Objective WDWN NAD trach clear breath sounds bilaterally without rhonchi or wheeze [id number] without MRG NABS nontender no HSM; GT no CC contractures skin changes noted nonfocal Microbiology Date/Time Source Procedure Growth Status 07/21/17 15:30 Blood Blood Culture - Final Staphylococcus Haemolyticus Complete 07/21/17 15:20 Blood Blood Culture - Final Staphylococcus Haemolyticus Complete 07/22/17 12:10 Sputum Gram Stain - Final Resulted 07/22/17 12:10 Sputum Culture - Preliminary Gram Negative Bacillus 1 Resulted 07/21/17 15:40 Nasal Nares MRSA Culture - Final Staphylococcus Aureus - Mrsa Complete 07/22/17 12:10 Urine,Clean Catch Urine Culture - Preliminary Gram Negative Bacillus 1 Resulted 07/21/17 22:00 Foot Right Gram Stain - Final Resulted 07/21/17 22:00 Wound Culture - Preliminary Gram Negative Bacillus 1 Resulted 07/21/17 15:40 Rectum VRE Culture - Final Enterococcus Faecalis - Vre Enterococcus Faecium - Vre Complete Laboratory Tests 07/23/17 12:30: White Blood Count 11.5H, Red Blood Count 3.17L, Hemoglobin 9.1L, Hematocrit 28.3L, Mean Corpuscular Volume 89, Mean Corpuscular Hemoglobin 28.8, Mean Corpuscular Hemoglobin Concent 32.2, Red Cell Distribution Width 16.3H, Platelet Count 443, Mean Platelet Volume 4.9L, Neutrophils (%) (Auto) 77.2H, Lymphocytes (%) (Auto) 14.4L, Monocytes (%) (Auto) 6.6, Eosinophils (%) (Auto) 1.3, Basophils (%) (Auto) 0.6, Sodium Level 135L, Potassium Level 4.4, Chloride Level 103, Carbon Dioxide Level 24, Anion Gap 8, Blood Urea Nitrogen 49H, Creatinine 1.5H, Estimat Glomerular Filtration Rate , Glucose Level 211H, Calcium Level 8.4L, Total Bilirubin 0.5, Aspartate Amino Transf (AST/SGOT) 14L, Alanine Aminotransferase (ALT/SGPT) 12, Alkaline Phosphatase 140H, Total Protein 7.1, Albumin 1.1L, Globulin 6.0, Albumin/Globulin Ratio 0.2L 07/23/17 17:00: Vancomycin Level Trough 16.1H Current Medications Medications (Trade) Dose Ordered Sig/Subhash Route PRN Reason Start Time Stop Time Status Last Admin Dose Admin Acetaminophen (Tylenol) 650 mg Q4H PRN GT Temp > 100.5 07/22/17 16:15 08/20/17 21:29 07/24/17 00:57 Acetaminophen (Tylenol) 650 mg Q4H PRN GT MILD PAIN 1-3 07/22/17 16:15 08/21/17 08:59 Albuterol Sulfate (Proventil) 2.5 mg Q6H PRN HHN Shortness of Breath 07/21/17 21:30 07/26/17 21:29 Atorvastatin Calcium (Lipitor) 10 mg BEDTIME GT 07/21/17 22:30 08/20/17 22:29 07/23/17 20:41 Bisacodyl (Dulcolax) 10 mg DAILYPRN PRN RECTAL Constipation 2nd Line Agent 07/21/17 21:30 08/20/17 21:29 Clotrimazole (Lotrimin) 1 applic TWICE A DAY TOPIC 07/22/17 09:00 08/21/17 08:59 07/23/17 18:28 Finasteride (Proscar) 5 mg DAILY ORAL 07/22/17 09:00 08/21/17 08:59 07/23/17 08:55 Heparin Sodium (Porcine) (Heparin 5000 units/ml) 5,000 units EVERY 12 HOURS SUBQ 07/21/17 22:30 08/20/17 22:29 07/23/17 20:45 Lansoprazole (Prevacid) 30 mg DAILY GT 07/22/17 09:00 08/21/17 08:59 07/23/17 08:54 Magnesium Hydroxide (Mom) 30 ml DAILYPRN PRN GT CONSTIPATION 1ST LINE AGENT 07/21/17 21:30 08/20/17 21:29 Metoprolol Tartrate (Lopressor) 50 mg EVERY 12 HOURS GT 07/22/17 09:00 08/21/17 08:59 07/23/17 20:42 Multivitamins (Multivitamins W/ Minerals 15ml Liquid) 15 ml DAILY GT 07/22/17 09:00 08/21/17 08:59 07/23/17 08:54 Non-Formulary Medication (Non-Formulary Med) 1 ea DAILY ORAL 07/22/17 09:00 08/21/17 08:59 UNV Piperacillin Sod/ Tazobactam Sod 3.375 gm/Dextrose 55 ml @ 13.75 mls/ hr Q8HR IVPB 07/21/17 23:00 07/28/17 22:59 07/24/17 06:21 Sodium Hypochlorite (Dakin's Half Strength) 1 applic BEDTIME TOPIC 07/22/17 21:00 08/22/17 08:59 07/23/17 20:46 Vancomycin HCl (Vanco rx to dose) 1 ea DAILY PRN MISC Per rx protocol 07/21/17 21:45 08/20/17 21:44 Vancomycin/Sodium Chloride 250 ml @ 166.667 mls/hr Q24H IVPB 07/23/17 20:00 07/28/17 19:59 07/23/17 19:42 REJI OJEDA Jul 24, 2017 09:09
[2017-07-24] MEDS: Multivitamins W/Minerals 15 ML UDC GT SCH (09:26)
[2017-07-24] MEDS: Heparin 5000 units/ml inj SUBQ SCH ×2 (09:27→21:01)
[2017-07-24] MEDS: Metoprolol Tartrate 50mg tab GT SCH ×2 (09:28→20:59)
--- NOTE | 2017-07-24 10:31 | General Progress Note ---
Assessment/Plan Problem List: (1) Sepsis ICD Codes: A41.9 - Sepsis, unspecified organism SNOMED: 82739815 (2) Bacteremia ICD Codes: R78.81 - Bacteremia SNOMED: 8187143 (3) Pressure ulcer, heel ICD Codes: L89.609 - Pressure ulcer of unspecified heel, unspecified stage SNOMED: 533489401 (4) Pacemaker ICD Codes: Z95.0 - Presence of cardiac pacemaker SNOMED: 573189424, 038597318 (5) Abnormal laboratory test ICD Codes: R89.9 - Unspecified abnormal finding in specimens from other organs , systems and tissues SNOMED: 594815815 (6) Anemia ICD Codes: D64.9 - Anemia, unspecified SNOMED: 012285571 (7) Tracheostomy dependence ICD Codes: Z93.0 - Tracheostomy status; R65.20 - Severe sepsis without septic shock SNOMED: 490537722, 072422007 (8) Severe sepsis ICD Codes: A41.9 - Sepsis, unspecified organism; R65.20 - Severe sepsis without septic shock SNOMED: 85872895 Status: stable Assessment/Plan IV abx follow up cultures wound care wound eval vent resp rx gt feeds poor prognosis D/w - needs bilateral aka. will eventually become septic. will attempt to call again. left several messages. no call back. Dtr kobe does not want to make any decisions Subjective ROS Limited/Unobtainable: Yes Constitutional: Reports: malaise, weakness HEENT: Reports: no symptoms Cardiovascular: Reports: no symptoms Respiratory: Reports: no symptoms Gastrointestinal/Abdominal: Reports: no symptoms Genitourinary: Reports: no symptoms Neurologic/Psychiatric: Reports: pre-existing deficit Allergies: Coded Allergies: No Known Allergies (Unverified , 01/07/17) Subjective no events. no change. on the vent. s/p 2 units prbcs. no bleeding noted. Objective Last 24 Hour Vital Signs Date Time Temp Pulse Resp B/P (MAP) Pulse Ox O2 Delivery O2 Flow Rate FiO2 07/24/17 09:28 74 110/42 07/24/17 09:08 71 21 40 07/24/17 08:00 98.8 74 17 110/42 99 07/24/17 08:00 71 07/24/17 07:01 73 21 40 07/24/17 05:23 69 19 40 07/24/17 04:00 97.8 69 18 119/61 100 Mechanical Ventilator 40 07/24/17 04:00 68 07/24/17 04:00 40 07/24/17 03:22 74 20 40 07/24/17 01:27 98.0 07/24/17 00:31 71 20 40 07/24/17 00:00 40 07/24/17 00:00 100.1 71 20 117/60 100 Mechanical Ventilator 40 07/24/17 00:00 87 07/23/17 23:24 67 19 40 07/23/17 21:13 69 20 40 07/23/17 20:42 77 124/61 07/23/17 20:00 99.2 82 24 129/71 100 Mechanical Ventilator 40 07/23/17 20:00 77 07/23/17 20:00 40 07/23/17 18:59 77 23 40 07/23/17 16:33 75 20 40 07/23/17 16:00 77 07/23/17 16:00 40 07/23/17 16:00 98.6 72 18 124/61 100 Mechanical Ventilator 40 07/23/17 14:57 71 23 40 07/23/17 12:53 81 20 40 07/23/17 12:00 98.2 78 22 105/61 97 Mechanical Ventilator 40 07/23/17 12:00 77 07/23/17 12:00 40 07/23/17 11:00 78 23 40 Laboratory Tests 07/23/17 12:30: White Blood Count 11.5H, Red Blood Count 3.17L, Hemoglobin 9.1L, Hematocrit 28.3L, Mean Corpuscular Volume 89, Mean Corpuscular Hemoglobin 28.8, Mean Corpuscular Hemoglobin Concent 32.2, Red Cell Distribution Width 16.3H, Platelet Count 443, Mean Platelet Volume 4.9L, Neutrophils (%) (Auto) 77.2H, Lymphocytes (%) (Auto) 14.4L, Monocytes (%) (Auto) 6.6, Eosinophils (%) (Auto) 1.3, Basophils (%) (Auto) 0.6, Sodium Level 135L, Potassium Level 4.4, Chloride Level 103, Carbon Dioxide Level 24, Anion Gap 8, Blood Urea Nitrogen 49H, Creatinine 1.5H, Estimat Glomerular Filtration Rate , Glucose Level 211H, Calcium Level 8.4L, Total Bilirubin 0.5, Aspartate Amino Transf (AST/SGOT) 14L, Alanine Aminotransferase (ALT/SGPT) 12, Alkaline Phosphatase 140H, Total Protein 7.1, Albumin 1.1L, Globulin 6.0, Albumin/Globulin Ratio 0.2L 07/23/17 17:00: Vancomycin Level Trough 16.1H Height (Feet): 6 Height (Inches): 0.00 Weight (Pounds): 180 General Appearance: WD/WN, confused Cardiovascular: regular rhythm Respiratory/Chest: lungs clear Abdomen: normal bowel sounds, non tender, soft, no organomegaly Edema: no edema noted Arm (L), no edema noted Arm (R), no edema noted Leg (L), no edema noted Leg (R), no edema noted Pedal (L), no edema noted Pedal (R), no edema noted Generalized Objective multiple wounds on hips,buttcoks and LE WENDIE CASTELLANOS Jul 24, 2017 10:31
[2017-07-24 12:00] VITALS: BP 108/51
--- NOTE | 2017-07-24 13:22 | Infectious Diseases Prog Note ---
Assessment/Plan Assessment/Plan antibiotics : vancomycin iv, zosyn A 1. gram negative UTI 2. gram negative pneumonia 3. leucocytosis resolved 4. respiratory failure 5. rectal VRE colonization 6. necrotic ulcers of legs 7. + blood cultures with coag neg staph likely contaminated P 1. continue zosyn 2. d/c iv vancomycin 3. will follow up cultures Subjective ROS Limited/Unobtainable: Yes Allergies: Coded Allergies: No Known Allergies (Unverified , 01/07/17) Objective Vital Signs Last 24 Hour Vital Signs Date Time Temp Pulse Resp B/P (MAP) Pulse Ox O2 Delivery O2 Flow Rate FiO2 07/24/17 12:59 68 21 40 07/24/17 12:00 98.9 77 20 108/51 100 07/24/17 12:00 40 07/24/17 12:00 62 07/24/17 10:30 75 20 40 07/24/17 09:28 74 110/42 07/24/17 09:08 71 21 40 07/24/17 08:00 98.8 74 17 110/42 99 07/24/17 08:00 40 07/24/17 08:00 71 07/24/17 07:01 73 21 40 07/24/17 05:23 69 19 40 07/24/17 04:00 97.8 69 18 119/61 100 Mechanical Ventilator 40 07/24/17 04:00 68 07/24/17 04:00 40 07/24/17 03:22 74 20 40 07/24/17 01:27 98.0 07/24/17 00:31 71 20 40 07/24/17 00:00 40 07/24/17 00:00 100.1 71 20 117/60 100 Mechanical Ventilator 40 07/24/17 00:00 87 07/23/17 23:24 67 19 40 07/23/17 21:13 69 20 40 07/23/17 20:42 77 124/61 07/23/17 20:00 99.2 82 24 129/71 100 Mechanical Ventilator 40 07/23/17 20:00 77 07/23/17 20:00 40 07/23/17 18:59 77 23 40 07/23/17 16:33 75 20 40 07/23/17 16:00 77 07/23/17 16:00 40 07/23/17 16:00 98.6 72 18 124/61 100 Mechanical Ventilator 40 07/23/17 14:57 71 23 40 Height (Feet): 6 Height (Inches): 0.00 Weight (Pounds): 180 HEENT: status post trach Respiratory/Chest: lungs clear Cardiovascular: normal rate, regular rhythm, no gallop/murmur Abdomen: soft, non tender, other - GT Extremities: no edema Microbiology Date/Time Source Procedure Growth Status 07/21/17 15:30 Blood Blood Culture - Final Staphylococcus Haemolyticus Complete 07/21/17 15:20 Blood Blood Culture - Final Staphylococcus Haemolyticus Complete 07/22/17 12:10 Sputum Gram Stain - Final Resulted 07/22/17 12:10 Sputum Culture - Preliminary Gram Negative Bacillus 1 Resulted 07/21/17 15:40 Nasal Nares MRSA Culture - Final Staphylococcus Aureus - Mrsa Complete 07/23/17 10:50 Stool Clostridium difficile Toxin Assay - Final Complete 07/22/17 12:10 Urine,Clean Catch Urine Culture - Preliminary Gram Negative Bacillus 1 Resulted 07/21/17 22:00 Foot Right Gram Stain - Final Resulted 07/21/17 22:00 Wound Culture - Preliminary Gram Negative Bacillus 1 Gram Negative Bacillus 2 Resulted 07/21/17 15:40 Rectum VRE Culture - Final Enterococcus Faecalis - Vre Enterococcus Faecium - Vre Complete Laboratory Tests Test 07/23/17 17:00 Vancomycin Level Trough 16.1 ug/mL (5.0-12.0) H VINICIO VAUGHAN Jul 24, 2017 13:22
[2017-07-24 16:00] VITALS: BP 116/60
[2017-07-24 20:00] VITALS: BP 124/67
[2017-07-24] MEDS: Dakin's 0.25% (Half Strength) 16oz TOPIC SCH (21:05)
[2017-07-25] VITALS (7 sets, daily range): BP systolic 105–128; BP diastolic 54–66
--- NOTE | 2017-07-25 03:31 | Progress Note ---
DATE: 07/24/2017 CARDIOLOGY PROGRESS NOTE SUBJECTIVE: The patient's pacemaker was evaluated today. Function is appropriate. Battery life is adequate. Episodes of ectopic atrial tachycardia noted. OBJECTIVE: VITAL SIGNS: Blood pressure is 110/42, pulse 74, and respiratory rate 21. NECK: Supple. LUNGS: Clear. CARDIAC: Regular rhythm and rate. Normal S1 and S2 with a fourth heart sound. ABDOMEN: Soft and nontender. EXTREMITIES: With poor peripheral perfusion. LABORATORY DATA: No new laboratories. IMPRESSION: 1. Leg ulcers. 2. Arterial insufficiency of the lower extremities. 3. Advanced dementia. 4. Respiratory failure. 5. Anemia, status post transfusions. 6. Permanent pacemaker. 7. Paroxysmal atrial fibrillation. PLAN: 1. Transfuse for symptomatic anemia. 2. Antimicrobials. 3. Respiratory hygiene. 4. Ventilator support. 5. No further pacemaker intervention at this time. 6. Vascular evaluation. 7. Suggesting amputation may be required if to continue current level of support. 8. evaluation should be considered. Stanislav Jain M.D. DR: Anh JOB#: [id number] CC:
[2017-07-25] MEDS: Piperacillin/Tazobactam 3.375 GM in D5W 55 ML IVPB SCH ×3 (05:50→21:17)
--- NOTE | 2017-07-25 07:03 | Pulmonology Progress Note ---
Assessment/Plan Assessment/Plan IMPRESSION Anemia acute on chronic renal failure PVD respiratory failure trach GT chronic encephalopathy diabetes PLAN vent as is for now no wean for now monitor for change suction as needed monitor labs for change and intervene monitor HH hydration with caution cultures reviewed monitor lytes and recommend prognosis poor for meaningful recovery would need surgery but not a candidate impression, plan, and exam edited and reviewed in detail care discussed with RN Subjective ROS Limited/Unobtainable: Yes Allergies: Coded Allergies: No Known Allergies (Unverified , 01/07/17) Subjective care noted vent reviewed and d/w RT d/w Dr. Carlos some secretions noted but stable Objective Last 24 Hour Vital Signs Date Time Temp Pulse Resp B/P (MAP) Pulse Ox O2 Delivery O2 Flow Rate FiO2 07/25/17 06:54 79 16 40 07/25/17 05:06 72 22 40 07/25/17 04:00 98.3 69 20 123/66 100 07/25/17 04:00 40 07/25/17 04:00 71 07/25/17 03:09 76 24 40 07/25/17 01:42 74 22 40 07/25/17 00:00 61 07/25/17 00:00 98.4 67 22 128/61 100 Mechanical Ventilator 40 07/24/17 23:10 64 20 40 07/24/17 21:13 73 19 40 07/24/17 20:59 71 124/60 07/24/17 20:00 72 07/24/17 20:00 99.1 76 20 124/67 100 07/24/17 20:00 40 07/24/17 19:15 72 20 40 07/24/17 16:30 75 20 40 07/24/17 16:05 75 07/24/17 16:00 40 07/24/17 16:00 98.4 71 19 116/60 100 07/24/17 14:42 72 21 40 07/24/17 12:59 68 21 40 07/24/17 12:00 98.9 77 20 108/51 100 07/24/17 12:00 40 07/24/17 12:00 62 07/24/17 10:30 75 20 40 07/24/17 09:28 74 110/42 07/24/17 09:08 71 21 40 07/24/17 08:00 98.8 74 17 110/42 99 07/24/17 08:00 40 07/24/17 08:00 71 Objective WDWN NAD trach reduced breath sounds bilaterally without rhonchi or wheeze [id number] without MRG NABS nontender no HSM; GT no CC contractures skin changes noted nonfocal Microbiology Date/Time Source Procedure Growth Status 07/22/17 12:10 Sputum Gram Stain - Final Resulted 07/22/17 12:10 Sputum Culture - Preliminary Serratia Marcescens Gram Negative Bacillus 2 Resulted 07/23/17 10:50 Stool Clostridium difficile Toxin Assay - Final Complete 07/22/17 12:10 Urine,Clean Catch Urine Culture - Preliminary A.baumanii Complx - Mdr Resulted Current Medications Medications (Trade) Dose Ordered Sig/Subhash Route PRN Reason Start Time Stop Time Status Last Admin Dose Admin Acetaminophen (Tylenol) 650 mg Q4H PRN GT Temp > 100.5 07/22/17 16:15 08/20/17 21:29 07/24/17 00:57 Acetaminophen (Tylenol) 650 mg Q4H PRN GT MILD PAIN 1-3 07/22/17 16:15 08/21/17 08:59 Albuterol Sulfate (Proventil) 2.5 mg Q6H PRN HHN Shortness of Breath 07/21/17 21:30 07/26/17 21:29 Atorvastatin Calcium (Lipitor) 10 mg BEDTIME GT 07/21/17 22:30 08/20/17 22:29 07/24/17 20:59 Bisacodyl (Dulcolax) 10 mg DAILYPRN PRN RECTAL Constipation 2nd Line Agent 07/21/17 21:30 08/20/17 21:29 Clotrimazole (Lotrimin) 1 applic TWICE A DAY TOPIC 07/22/17 09:00 08/21/17 08:59 07/24/17 17:45 Finasteride (Proscar) 5 mg DAILY ORAL 07/22/17 09:00 08/21/17 08:59 07/24/17 09:27 Heparin Sodium (Porcine) (Heparin 5000 units/ml) 5,000 units EVERY 12 HOURS SUBQ 07/21/17 22:30 08/20/17 22:29 07/24/17 21:01 Lansoprazole (Prevacid) 30 mg DAILY GT 07/22/17 09:00 08/21/17 08:59 07/24/17 09:29 Magnesium Hydroxide (Mom) 30 ml DAILYPRN PRN GT CONSTIPATION 1ST LINE AGENT 07/21/17 21:30 08/20/17 21:29 Metoprolol Tartrate (Lopressor) 50 mg EVERY 12 HOURS GT 07/22/17 09:00 08/21/17 08:59 07/24/17 20:59 Multivitamins (Multivitamins W/ Minerals 15ml Liquid) 15 ml DAILY GT 07/22/17 09:00 08/21/17 08:59 07/24/17 09:26 Non-Formulary Medication (Non-Formulary Med) 1 ea DAILY ORAL 07/22/17 09:00 08/21/17 08:59 UNV Piperacillin Sod/ Tazobactam Sod 3.375 gm/Dextrose 55 ml @ 13.75 mls/ hr Q8HR IVPB 07/21/17 23:00 07/28/17 22:59 07/25/17 05:50 Sodium Hypochlorite (Dakin's Half Strength) 1 applic BEDTIME TOPIC 07/22/17 21:00 08/22/17 08:59 07/24/17 21:05 REJI OJEDA Jul 25, 2017 07:03
--- NOTE | 2017-07-25 08:32 | General Progress Note ---
Assessment/Plan Problem List: (1) Sepsis ICD Codes: A41.9 - Sepsis, unspecified organism SNOMED: 26965992 (2) Bacteremia ICD Codes: R78.81 - Bacteremia SNOMED: 9929789 (3) Pressure ulcer, heel ICD Codes: L89.609 - Pressure ulcer of unspecified heel, unspecified stage SNOMED: 317917872 (4) Pacemaker ICD Codes: Z95.0 - Presence of cardiac pacemaker SNOMED: 568355915, 085269432 (5) Abnormal laboratory test ICD Codes: R89.9 - Unspecified abnormal finding in specimens from other organs , systems and tissues SNOMED: 241959743 (6) Anemia ICD Codes: D64.9 - Anemia, unspecified SNOMED: 195342364 (7) Tracheostomy dependence ICD Codes: Z93.0 - Tracheostomy status; R65.20 - Severe sepsis without septic shock SNOMED: 645988462, 841624377 (8) Severe sepsis ICD Codes: A41.9 - Sepsis, unspecified organism; R65.20 - Severe sepsis without septic shock SNOMED: 58274939 Status: stable, progressing Assessment/Plan IV abx follow up cultures wound care wound eval vent resp rx gt feeds poor prognosis left message for toby again. await call back D/w - needs bilateral aka. will eventually become septic. will attempt to call again. left several messages. no call back. Dtr kobe does not want to make any decisions Subjective ROS Limited/Unobtainable: Yes Constitutional: Reports: malaise, weakness HEENT: Reports: no symptoms Cardiovascular: Reports: no symptoms Respiratory: Reports: shortness of breath Gastrointestinal/Abdominal: Reports: difficulty swallowing Genitourinary: Reports: no symptoms Neurologic/Psychiatric: Reports: pre-existing deficit Endocrine: Reports: no symptoms Hematologic/Lymphatic: Reports: no symptoms Allergies: Coded Allergies: No Known Allergies (Unverified , 01/07/17) All Systems: reviewed and negative except above Subjective no events. no luck at reaching . on the vent. on feeds. getting wound care. Objective Last 24 Hour Vital Signs Date Time Temp Pulse Resp B/P (MAP) Pulse Ox O2 Delivery O2 Flow Rate FiO2 07/25/17 08:00 99.5 75 18 116/56 98 Mechanical Ventilator 40 07/25/17 08:00 40 07/25/17 06:54 79 16 40 07/25/17 05:06 72 22 40 07/25/17 04:00 98.3 69 20 123/66 100 07/25/17 04:00 40 07/25/17 04:00 71 07/25/17 03:09 76 24 40 07/25/17 01:42 74 22 40 07/25/17 00:00 61 07/25/17 00:00 98.4 67 22 128/61 100 Mechanical Ventilator 40 07/24/17 23:10 64 20 40 07/24/17 21:13 73 19 40 07/24/17 20:59 71 124/60 07/24/17 20:00 72 07/24/17 20:00 99.1 76 20 124/67 100 07/24/17 20:00 40 07/24/17 19:15 72 20 40 07/24/17 16:30 75 20 40 07/24/17 16:05 75 07/24/17 16:00 40 07/24/17 16:00 98.4 71 19 116/60 100 07/24/17 14:42 72 21 40 07/24/17 12:59 68 21 40 07/24/17 12:00 98.9 77 20 108/51 100 07/24/17 12:00 40 07/24/17 12:00 62 07/24/17 10:30 75 20 40 07/24/17 09:28 74 110/42 07/24/17 09:08 71 21 40 Height (Feet): 6 Height (Inches): 0.00 Weight (Pounds): 180 Objective multiple wounds on hips,buttcoks and LE WENDIE CASTELLANOS Jul 25, 2017 08:32
[2017-07-25] MEDS: Multivitamins W/Minerals 15 ML UDC GT SCH (08:40)
[2017-07-25] MEDS: Metoprolol Tartrate 50mg tab GT SCH ×2 (08:40→20:12)
[2017-07-25] MEDS: Heparin 5000 units/ml inj SUBQ SCH ×2 (08:43→20:43)
[2017-07-25 09:08] LABS: BASOPHILS % (AUTO) 0.6 % (0.0-2.0); EOSINOPHILS % (AUTO) 3.3 % (0.0-3.0); LYMPHOCYTES % (AUTO) 17.2 % (20.0-45.0); MEAN CORPUSCULAR HEMOGLOBIN 27.6 PG (27.0-31.0); MEAN CORPUSCULAR HGB CONC 30.5 G/DL (32.0-36.0); MEAN CORPUSCULAR VOLUME 90 FL (80-99); PLATELET COUNT 398 K/UL (150-450); RED BLOOD COUNT 3.32 M/UL (4.70-6.10); RED CELL DISTRIBUTION WIDTH 16.8 % (11.6-14.8); WHITE BLOOD COUNT 9.6 K/UL (4.8-10.8)
[2017-07-25 10:05] LABS: ANION GAP 13 mmol/L (5-15); CALCIUM 7.9 MG/DL (8.5-10.1); CARBON DIOXIDE 19 MMOL/L (21-32); CHLORIDE 107 MMOL/L (98-107); CREATININE 1.3 MG/DL (0.55-1.30); POTASSIUM 4.5 MMOL/L (3.5-5.1); SODIUM 138 MMOL/L (136-145)
--- NOTE | 2017-07-25 10:29 | Infectious Diseases Prog Note ---
"Assessment/Plan Assessment/Plan antibiotics : zosyn A 1. acenitobacter UTI 2. serratia | gram negative pneumonia 3. leucocytosis resolved 4. respiratory failure 5. rectal VRE colonization 6. necrotic ulcers of legs 7. + blood cultures with coag neg staph likely contaminated 8. nasal MRSA colonization P 1. continue zosyn 2. start iv colistin 3. will follow up cultures Subjective ROS Limited/Unobtainable: Yes Allergies: Coded Allergies: No Known Allergies (Unverified , 01/07/17) Objective Vital Signs Last 24 Hour Vital Signs Date Time Temp Pulse Resp B/P (MAP) Pulse Ox O2 Delivery O2 Flow Rate FiO2 07/25/17 09:09 71 18 40 07/25/17 08:40 75 116/56 07/25/17 08:05 71 07/25/17 08:00 99.5 75 18 116/56 98 Mechanical Ventilator 40 07/25/17 08:00 40 07/25/17 06:54 79 16 40 07/25/17 05:06 72 22 40 07/25/17 04:00 98.3 69 20 123/66 100 07/25/17 04:00 40 07/25/17 04:00 71 07/25/17 03:09 76 24 40 07/25/17 01:42 74 22 40 07/25/17 00:00 61 07/25/17 00:00 98.4 67 22 128/61 100 Mechanical Ventilator 40 07/24/17 23:10 64 20 40 07/24/17 21:13 73 19 40 07/24/17 20:59 71 124/60 07/24/17 20:00 72 07/24/17 20:00 99.1 76 20 124/67 100 07/24/17 20:00 40 07/24/17 19:15 72 20 40 07/24/17 16:30 75 20 40 07/24/17 16:05 75 07/24/17 16:00 40 07/24/17 16:00 98.4 71 19 116/60 100 07/24/17 14:42 72 21 40 07/24/17 12:59 68 21 40 07/24/17 12:00 98.9 77 20 108/51 100 07/24/17 12:00 40 07/24/17 12:00 62 07/24/17 10:30 75 20 40 Height (Feet): 6 Height (Inches): 0.00 Weight (Pounds): 180 HEENT: status post trach Respiratory/Chest: lungs clear Cardiovascular: normal rate, regular rhythm, no gallop/murmur Abdomen: soft, non tender, other - GT Extremities: no edema Microbiology Date/Time Source Procedure Growth Status 07/22/17 12:10 Sputum Gram Stain - Final Resulted 07/22/17 12:10 Sputum Culture - Preliminary Serratia Marcescens Gram Negative Bacillus 2 Resulted 07/23/17 10:50 Stool Clostridium difficile Toxin Assay - Final Complete 07/22/17 12:10 Urine,Clean Catch Urine Culture - Preliminary A.baumanii Complx - Mdr Resulted Laboratory Tests Test 07/25/17 08:15 White Blood Count 9.6 K/UL (4.8-10.8) Red Blood Count 3.32 M/UL (4.70-6.10) L Hemoglobin 9.1 G/DL (14.2-18.0) L Hematocrit 30.0 % (42.0-52.0) L Mean Corpuscular Volume 90 FL (80-99) Mean Corpuscular Hemoglobin 27.6 PG (27.0-31.0) Mean Corpuscular Hemoglobin Concent 30.5 G/DL (32.0-36.0) L Red Cell Distribution Width 16.8 % (11.6-14.8) H Platelet Count 398 K/UL (150-450) Mean Platelet Volume 5.0 FL (6.5-10.1) L Neutrophils (%) (Auto) 72.0 % (45.0-75.0) Lymphocytes (%) (Auto) 17.2 % (20.0-45.0) L Monocytes (%) (Auto) 7.0 % (1.0-10.0) Eosinophils (%) (Auto) 3.3 % (0.0-3.0) H Basophils (%) (Auto) 0.6 % (0.0-2.0) Sodium Level 138 MMOL/L (136-145) Potassium Level 4.5 MMOL/L (3.5-5.1) Chloride Level 107 MMOL/L (98-107) Carbon Dioxide Level 19 MMOL/L (21-32) L Anion Gap 13 mmol/L (5-15) Blood Urea Nitrogen 43 mg/dL (7-18) H Creatinine 1.3 MG/DL (0.55-1.30) Estimat Glomerular Filtration Rate mL/min (>60) Glucose Level 205 MG/DL (74-106) H Calcium Level 7.9 MG/DL (8.5-10.1) VINICIO ERNANDEZ Jul 25, 2017 10:29"
[2017-07-25] MEDS ORDERED: Tubing IV Secondary IV ONE (11:24)
[2017-07-25] MEDS ORDERED: NS 275ml ONE (11:24)
[2017-07-25] MEDS ORDERED: Colistin 150mg vial IVP SCH (12:00)
[2017-07-25] MEDS: Colistin 150mg vial IVP SCH ×2 (13:01→20:41)
[2017-07-25] MEDS: Dakin's 0.25% (Half Strength) 16oz TOPIC SCH (20:41)
[2017-07-26] VITALS: BP 131/65
--- NOTE | 2017-07-26 03:45 | Progress Note ---
DATE: 07/25/2017 CARDIOLOGY PROGRESS NOTE SUBJECTIVE: The patient has ischemic lower extremities and is at risk for secondary sepsis. Consideration for amputations is ongoing pending family response. The patient is noncommunicative, on ventilator support. OBJECTIVE: VITAL SIGNS: Blood pressure 116/56, heart rate 75, respiratory rate 18, temperature 99.5 degrees. LUNGS: Bilateral breath sounds. Thin trach secretions. HEART: Regular rhythm and rate. Normal S1, S2. ABDOMEN: Soft. G-tube intact. EXTREMITIES: Trace edema. LABORATORY STUDIES: White count 9.6, hemoglobin 9.1. Sodium 138, potassium 4.5, bicarbonate 19, BUN 43, and creatinine 1.3. IMPRESSION: 1. Peripheral artery disease. 2. Ischemic lower extremities. 3. Acute on chronic diastolic congestive heart failure. 4. Permanent pacemaker. 5. Paroxysmal atrial fibrillation. 6. Anemia. 7. Respiratory failure. 8. Cerebrovascular disease with chronic encephalopathy. PLAN: Antimicrobials. Diuresis. DVT prophylaxis. Ventilator support. Await decision regarding amputation versus comfort level of care. Continue beta-blockade. Stanislav Jain M.D. DR: Liliya JOB#: [id number] CC:
[2017-07-26 04:00] VITALS: BP 105/55
[2017-07-26] MEDS: Piperacillin/Tazobactam 3.375 GM in D5W 55 ML IVPB SCH ×3 (05:01→21:51)
[2017-07-26 08:00] VITALS: BP 114/45
--- NOTE | 2017-07-26 08:15 | Infectious Diseases Prog Note ---
Assessment/Plan Assessment/Plan A: Sepsis UTI Pneumonia Bacteremia likely contamination Necrotic Pressure ulcers of legs with osteomyelitis VDRF DM Anemia P: Continue Zosyn & Colistin will f/u cultures Subjective ROS Limited/Unobtainable: Yes Allergies: Coded Allergies: No Known Allergies (Unverified , 01/07/17) Objective Vital Signs Last 24 Hour Vital Signs Date Time Temp Pulse Resp B/P (MAP) Pulse Ox O2 Delivery O2 Flow Rate FiO2 07/26/17 07:27 77 17 40 07/26/17 04:48 80 19 40 07/26/17 04:00 88 07/26/17 04:00 40 07/26/17 04:00 97.0 92 22 105/55 100 Mechanical Ventilator 07/26/17 03:30 81 23 40 07/26/17 01:30 87 22 40 07/26/17 00:00 97.7 07/26/17 00:00 40 07/26/17 00:00 97.7 79 22 131/65 100 Mechanical Ventilator 07/26/17 00:00 81 07/25/17 23:52 80 22 40 07/25/17 21:30 72 18 40 07/25/17 21:00 99.1 78 18 111/55 99 Mechanical Ventilator 40 07/25/17 20:12 62 110/54 07/25/17 20:00 97.7 63 16 110/54 100 Mechanical Ventilator 07/25/17 20:00 67 07/25/17 20:00 40 07/25/17 19:30 67 17 40 07/25/17 17:26 69 16 40 07/25/17 16:00 99.1 78 18 111/55 99 Mechanical Ventilator 40 07/25/17 16:00 40 07/25/17 15:21 69 07/25/17 15:07 61 18 40 07/25/17 12:57 70 16 40 07/25/17 12:00 40 07/25/17 12:00 99.0 75 17 105/56 99 Mechanical Ventilator 40 07/25/17 11:50 73 07/25/17 10:54 69 17 40 07/25/17 09:09 71 18 40 07/25/17 08:40 75 116/56 Height (Feet): 6 Height (Inches): 0.00 Weight (Pounds): 180 General Appearance: no acute distress HEENT: status post trach Respiratory/Chest: lungs clear, other - on ventilator Cardiovascular: normal rate Abdomen: soft, non tender, other - GT feeding Extremities: no edema, other - Contracted Skin: ulcers Neurologic/Psychiatric: unresponsiveness Microbiology Date/Time Source Procedure Growth Status 07/23/17 10:50 Stool Clostridium difficile Toxin Assay - Final Complete Laboratory Tests Test 07/25/17 08:15 White Blood Count 9.6 K/UL (4.8-10.8) Red Blood Count 3.32 M/UL (4.70-6.10) L Hemoglobin 9.1 G/DL (14.2-18.0) L Hematocrit 30.0 % (42.0-52.0) L Mean Corpuscular Volume 90 FL (80-99) Mean Corpuscular Hemoglobin 27.6 PG (27.0-31.0) Mean Corpuscular Hemoglobin Concent 30.5 G/DL (32.0-36.0) L Red Cell Distribution Width 16.8 % (11.6-14.8) H Platelet Count 398 K/UL (150-450) Mean Platelet Volume 5.0 FL (6.5-10.1) L Neutrophils (%) (Auto) 72.0 % (45.0-75.0) Lymphocytes (%) (Auto) 17.2 % (20.0-45.0) L Monocytes (%) (Auto) 7.0 % (1.0-10.0) Eosinophils (%) (Auto) 3.3 % (0.0-3.0) H Basophils (%) (Auto) 0.6 % (0.0-2.0) Sodium Level 138 MMOL/L (136-145) Potassium Level 4.5 MMOL/L (3.5-5.1) Chloride Level 107 MMOL/L (98-107) Carbon Dioxide Level 19 MMOL/L (21-32) L Anion Gap 13 mmol/L (5-15) Blood Urea Nitrogen 43 mg/dL (7-18) H Creatinine 1.3 MG/DL (0.55-1.30) Estimat Glomerular Filtration Rate mL/min (>60) Glucose Level 205 MG/DL (74-106) H Calcium Level 7.9 MG/DL (8.5-10.1) L Current Medications Medications (Trade) Dose Ordered Sig/Subhash Route PRN Reason Start Time Stop Time Status Last Admin Dose Admin Acetaminophen (Tylenol) 650 mg Q4H PRN GT Temp > 100.5 07/22/17 16:15 08/20/17 21:29 07/24/17 00:57 Acetaminophen (Tylenol) 650 mg Q4H PRN GT MILD PAIN 1-3 07/22/17 16:15 08/21/17 08:59 Albuterol Sulfate (Proventil) 2.5 mg Q6H PRN HHN Shortness of Breath 07/21/17 21:30 07/26/17 21:29 Atorvastatin Calcium (Lipitor) 10 mg BEDTIME GT 07/21/17 22:30 08/20/17 22:29 07/25/17 20:41 Bisacodyl (Dulcolax) 10 mg DAILYPRN PRN RECTAL Constipation 2nd Line Agent 07/21/17 21:30 08/20/17 21:29 Clotrimazole (Lotrimin) 1 applic TWICE A DAY TOPIC 07/22/17 09:00 08/21/17 08:59 07/25/17 17:59 Colistimethate Sodium (Colistin) 100 mg Q12HR IVP 07/25/17 12:00 07/27/17 21:01 07/25/17 20:41 Finasteride (Proscar) 5 mg DAILY ORAL 07/22/17 09:00 08/21/17 08:59 07/25/17 08:40 Heparin Sodium (Porcine) (Heparin 5000 units/ml) 5,000 units EVERY 12 HOURS SUBQ 07/21/17 22:30 08/20/17 22:29 07/25/17 20:43 Lansoprazole (Prevacid) 30 mg DAILY GT 07/22/17 09:00 08/21/17 08:59 07/25/17 08:40 Magnesium Hydroxide (Mom) 30 ml DAILYPRN PRN GT CONSTIPATION 1ST LINE AGENT 07/21/17 21:30 08/20/17 21:29 Metoprolol Tartrate (Lopressor) 50 mg EVERY 12 HOURS GT 07/22/17 09:00 08/21/17 08:59 07/25/17 08:40 Multivitamins (Multivitamins W/ Minerals 15ml Liquid) 15 ml DAILY GT 07/22/17 09:00 08/21/17 08:59 07/25/17 08:40 Non-Formulary Medication (Non-Formulary Med) 1 ea DAILY ORAL 07/22/17 09:00 08/21/17 08:59 UNV Piperacillin Sod/ Tazobactam Sod 3.375 gm/Dextrose 55 ml @ 13.75 mls/ hr Q8HR IVPB 07/21/17 23:00 07/28/17 22:59 07/26/17 05:01 Sodium Hypochlorite (Dakin's Half Strength) 1 applic BEDTIME TOPIC 07/22/17 21:00 08/22/17 08:59 07/25/17 20:41 ABDOULAYE ALFONSO Jul 26, 2017 08:15
--- NOTE | 2017-07-26 08:43 | General Progress Note ---
Assessment/Plan Problem List: (1) Sepsis ICD Codes: A41.9 - Sepsis, unspecified organism SNOMED: 99090949 (2) Bacteremia ICD Codes: R78.81 - Bacteremia SNOMED: 1183912 (3) Pressure ulcer, heel ICD Codes: L89.609 - Pressure ulcer of unspecified heel, unspecified stage SNOMED: 327229869 (4) Pacemaker ICD Codes: Z95.0 - Presence of cardiac pacemaker SNOMED: 119080698, 214949610 (5) Abnormal laboratory test ICD Codes: R89.9 - Unspecified abnormal finding in specimens from other organs , systems and tissues SNOMED: 560279309 (6) Anemia ICD Codes: D64.9 - Anemia, unspecified SNOMED: 048454001 (7) Tracheostomy dependence ICD Codes: Z93.0 - Tracheostomy status; R65.20 - Severe sepsis without septic shock SNOMED: 001570339, 433629843 (8) Severe sepsis ICD Codes: A41.9 - Sepsis, unspecified organism; R65.20 - Severe sepsis without septic shock SNOMED: 93357361 Assessment/Plan IV abx follow up cultures wound care wound eval appreciated refusing amputation vent resp rx gt feeds poor prognosis psychologist social to meet with re hospice Subjective ROS Limited/Unobtainable: Yes Constitutional: Reports: malaise, weakness HEENT: Reports: no symptoms Cardiovascular: Reports: no symptoms Respiratory: Reports: cough, sputum Gastrointestinal/Abdominal: Reports: difficulty swallowing Genitourinary: Reports: no symptoms Neurologic/Psychiatric: Reports: pre-existing deficit Endocrine: Reports: no symptoms Hematologic/Lymphatic: Reports: anemia Allergies: Coded Allergies: No Known Allergies (Unverified , 01/07/17) All Systems: reviewed and negative except above Subjective no events. came to hospital. declines amputation. still wants full code though Objective Last 24 Hour Vital Signs Date Time Temp Pulse Resp B/P (MAP) Pulse Ox O2 Delivery O2 Flow Rate FiO2 07/26/17 07:27 77 17 40 07/26/17 04:48 80 19 40 07/26/17 04:00 88 07/26/17 04:00 40 07/26/17 04:00 97.0 92 22 105/55 100 Mechanical Ventilator 07/26/17 03:30 81 23 40 07/26/17 01:30 87 22 40 07/26/17 00:00 97.7 07/26/17 00:00 40 07/26/17 00:00 97.7 79 22 131/65 100 Mechanical Ventilator 07/26/17 00:00 81 07/25/17 23:52 80 22 40 07/25/17 21:30 72 18 40 07/25/17 21:00 99.1 78 18 111/55 99 Mechanical Ventilator 40 07/25/17 20:12 62 110/54 07/25/17 20:00 97.7 63 16 110/54 100 Mechanical Ventilator 07/25/17 20:00 67 07/25/17 20:00 40 07/25/17 19:30 67 17 40 07/25/17 17:26 69 16 40 07/25/17 16:00 99.1 78 18 111/55 99 Mechanical Ventilator 40 07/25/17 16:00 40 07/25/17 15:21 69 07/25/17 15:07 61 18 40 07/25/17 12:57 70 16 40 07/25/17 12:00 40 07/25/17 12:00 99.0 75 17 105/56 99 Mechanical Ventilator 40 07/25/17 11:50 73 07/25/17 10:54 69 17 40 07/25/17 09:09 71 18 40 Height (Feet): 6 Height (Inches): 0.00 Weight (Pounds): 180 General Appearance: WD/WN, lethargic Neck: supple Cardiovascular: normal rate Respiratory/Chest: lungs clear, normal breath sounds, no respiratory distress, no accessory muscle use Abdomen: normal bowel sounds, non tender, soft, no organomegaly Edema: trace edema Neurologic: unresponsive, aphasia Objective multiple wounds on hips,buttcoks and LE WENDIE CASTELLANOS Jul 26, 2017 08:43
[2017-07-26] MEDS: Multivitamins W/Minerals 15 ML UDC GT SCH (09:06)
[2017-07-26] MEDS: Colistin 150mg vial IVP SCH ×2 (09:06→21:50)
[2017-07-26] MEDS: Metoprolol Tartrate 50mg tab GT SCH ×2 (09:07→21:50)
[2017-07-26] MEDS: Heparin 5000 units/ml inj SUBQ SCH ×2 (09:08→21:55)
[2017-07-26] MEDS ORDERED: NS 500ML ONE (10:43)
[2017-07-26 12:00] VITALS: BP 102/49
--- NOTE | 2017-07-26 12:51 | Pulmonology Progress Note ---
Assessment/Plan Assessment/Plan IMPRESSION Anemia acute on chronic renal failure PVD respiratory failure trach GT chronic encephalopathy diabetes PLAN vent as is for now no wean for now monitor for change suction as needed monitor labs for change and intervene monitor HH hydration with caution cultures reviewed agree with hospice and terminal care prognosis poor for meaningful recovery would need surgery but not a candidate impression, plan, and exam edited and reviewed in detail care discussed with RN Subjective ROS Limited/Unobtainable: Yes Allergies: Coded Allergies: No Known Allergies (Unverified , 01/07/17) Subjective care noted vent reviewed and d/w RT d/w Dr. Carlos- agree with hospice some secretions noted but stable Objective Last 24 Hour Vital Signs Date Time Temp Pulse Resp B/P (MAP) Pulse Ox O2 Delivery O2 Flow Rate FiO2 07/26/17 11:32 79 16 40 07/26/17 09:18 77 16 40 07/26/17 09:07 82 114/45 07/26/17 08:02 80 07/26/17 08:00 99.7 82 18 114/45 100 Mechanical Ventilator 40 07/26/17 08:00 40 07/26/17 07:27 77 17 40 07/26/17 04:48 80 19 40 07/26/17 04:00 88 07/26/17 04:00 40 07/26/17 04:00 97.0 92 22 105/55 100 Mechanical Ventilator 07/26/17 03:30 81 23 40 07/26/17 01:30 87 22 40 07/26/17 00:00 97.7 07/26/17 00:00 40 07/26/17 00:00 97.7 79 22 131/65 100 Mechanical Ventilator 07/26/17 00:00 81 07/25/17 23:52 80 22 40 07/25/17 21:30 72 18 40 07/25/17 21:00 99.1 78 18 111/55 99 Mechanical Ventilator 40 07/25/17 20:12 62 110/54 07/25/17 20:00 97.7 63 16 110/54 100 Mechanical Ventilator 07/25/17 20:00 67 07/25/17 20:00 40 07/25/17 19:30 67 17 40 07/25/17 17:26 69 16 40 07/25/17 16:00 99.1 78 18 111/55 99 Mechanical Ventilator 40 07/25/17 16:00 40 07/25/17 15:21 69 07/25/17 15:07 61 18 40 07/25/17 12:57 70 16 40 Intake and Output 07/26/17 07/27/17 19:00 07:00 Intake Total 27.50 ml Balance 27.50 ml IV Total 27.50 ml Objective WDWN NAD trach reduced breath sounds bilaterally without rhonchi or wheeze [id number] without MRG NABS nontender no HSM; GT no CC contractures skin changes noted nonfocal Current Medications Medications (Trade) Dose Ordered Sig/Subhash Route PRN Reason Start Time Stop Time Status Last Admin Dose Admin Acetaminophen (Tylenol) 650 mg Q4H PRN GT Temp > 100.5 07/22/17 16:15 08/20/17 21:29 07/24/17 00:57 Acetaminophen (Tylenol) 650 mg Q4H PRN GT MILD PAIN 1-3 07/22/17 16:15 08/21/17 08:59 Albuterol Sulfate (Proventil) 2.5 mg Q6H PRN HHN Shortness of Breath 07/21/17 21:30 07/26/17 21:29 Atorvastatin Calcium (Lipitor) 10 mg BEDTIME GT 07/21/17 22:30 08/20/17 22:29 07/25/17 20:41 Bisacodyl (Dulcolax) 10 mg DAILYPRN PRN RECTAL Constipation 2nd Line Agent 07/21/17 21:30 08/20/17 21:29 Clotrimazole (Lotrimin) 1 applic TWICE A DAY TOPIC 07/22/17 09:00 08/21/17 08:59 07/26/17 09:08 Colistimethate Sodium (Colistin) 100 mg Q12HR IVP 07/25/17 12:00 07/27/17 21:01 07/26/17 09:06 Finasteride (Proscar) 5 mg DAILY ORAL 07/22/17 09:00 08/21/17 08:59 07/26/17 09:06 Heparin Sodium (Porcine) (Heparin 5000 units/ml) 5,000 units EVERY 12 HOURS SUBQ 07/21/17 22:30 08/20/17 22:29 07/26/17 09:08 Lansoprazole (Prevacid) 30 mg DAILY GT 07/22/17 09:00 08/21/17 08:59 07/26/17 09:07 Magnesium Hydroxide (Mom) 30 ml DAILYPRN PRN GT CONSTIPATION 1ST LINE AGENT 07/21/17 21:30 08/20/17 21:29 Metoprolol Tartrate (Lopressor) 50 mg EVERY 12 HOURS GT 07/22/17 09:00 08/21/17 08:59 07/26/17 09:07 Multivitamins (Multivitamins W/ Minerals 15ml Liquid) 15 ml DAILY GT 07/22/17 09:00 08/21/17 08:59 07/26/17 09:06 Non-Formulary Medication (Non-Formulary Med) 1 ea DAILY ORAL 07/22/17 09:00 08/21/17 08:59 UNV Piperacillin Sod/ Tazobactam Sod 3.375 gm/Dextrose 55 ml @ 13.75 mls/ hr Q8HR IVPB 07/21/17 23:00 07/28/17 22:59 07/26/17 05:01 Sodium Hypochlorite (Dakin's Half Strength) 1 applic BEDTIME TOPIC 07/22/17 21:00 08/22/17 08:59 07/25/17 20:41 REJI OJEDA Jul 26, 2017 12:51
[2017-07-26 16:00] VITALS: BP 129/70
[2017-07-26 20:51] VITALS: BP 129/63
[2017-07-26] MEDS: Dakin's 0.25% (Half Strength) 16oz TOPIC SCH (21:51)
--- NOTE | 2017-07-26 23:15 | Progress Note ---
DATE: 07/26/2017 CARDIOLOGY PROGRESS NOTE SUBJECTIVE: The patient's family members have decided against an amputation. They want to continue with current level of support, however. The patient remains on ventilator. Monitor is sinus with demand pacing. OBJECTIVE: VITAL SIGNS: Blood pressure 105/55, pulse 92, and respiratory rate 22. LUNGS: With good breath sounds. CARDIAC: Regular rhythm and rate. Normal S1 and S2 with a 4th heart sound. ABDOMEN: Soft. EXTREMITIES: No edema. LABORATORY DATA: No new labs today. IMPRESSION: 1. Ventilator-dependent respiratory failure. 2. Anemia, requiring transfusions. 3. Acute on chronic renal failure. 4. Peripheral artery disease. 5. Ischemic lower extremities. 6. Permanent pacemaker. 7. Paroxysmal atrial fibrillation. 8. Arteriosclerotic cardiovascular disease. PLAN: 1. Ventilator support. 2. Antimicrobials. 3. No plan for amputation. 4. Maintain current cardiovascular regimen without change. Stanislav Jain M.D. DR: SANDEEP JOB#: [id number] CC:
[2017-07-27] VITALS: BP 123/60
[2017-07-27 04:00] VITALS: BP 125/65
[2017-07-27] MEDS: Piperacillin/Tazobactam 3.375 GM in D5W 55 ML IVPB SCH ×3 (06:12→21:47)
[2017-07-27] MEDS: Acetaminophen 650mg/20.3ml GT PRN ×2 (06:18→19:49)
--- NOTE | 2017-07-27 07:42 | Pulmonology Progress Note ---
Assessment/Plan Assessment/Plan IMPRESSION Anemia acute on chronic renal failure PVD respiratory failure trach GT chronic encephalopathy diabetes PLAN vent as is for now no wean for now monitor for change suction as needed monitor labs for change and intervene monitor HH adjust antibiotics agree with hospice and terminal care if agrees prognosis poor for meaningful recovery would need surgery but not a candidate impression, plan, and exam edited and reviewed in detail care discussed with RN Subjective ROS Limited/Unobtainable: Yes Allergies: Coded Allergies: No Known Allergies (Unverified , 01/07/17) Subjective care noted vent reviewed and d/w RT await decision for hospice secretions noted Objective Last 24 Hour Vital Signs Date Time Temp Pulse Resp B/P (MAP) Pulse Ox O2 Delivery O2 Flow Rate FiO2 07/27/17 06:48 100.9 07/27/17 06:10 101.0 07/27/17 04:59 72 27 40 07/27/17 04:00 40 07/27/17 04:00 99.9 65 20 125/65 100 Mechanical Ventilator 40 07/27/17 04:00 73 07/27/17 03:30 69 24 40 07/27/17 01:30 64 21 40 07/27/17 00:00 40 07/27/17 00:00 70 07/27/17 00:00 99.0 65 16 123/60 100 Mechanical Ventilator 40 07/26/17 23:30 65 21 40 07/26/17 21:50 82 129/63 07/26/17 21:15 82 20 40 07/26/17 21:12 85 21 Mechanical Ventilator 07/26/17 20:51 99.7 88 22 129/63 100 Mechanical Ventilator 40 07/26/17 20:00 40 07/26/17 20:00 89 07/26/17 19:30 86 22 40 07/26/17 17:09 76 16 40 07/26/17 16:00 40 07/26/17 16:00 98.2 85 17 129/70 100 Mechanical Ventilator 40 07/26/17 15:46 73 07/26/17 15:28 74 16 40 07/26/17 13:07 71 16 40 07/26/17 12:00 40 07/26/17 12:00 70 07/26/17 12:00 98.1 68 16 102/49 100 Mechanical Ventilator 40 07/26/17 11:32 79 16 40 07/26/17 09:18 77 16 40 07/26/17 09:07 82 114/45 07/26/17 08:02 80 07/26/17 08:00 99.7 82 18 114/45 100 Mechanical Ventilator 40 07/26/17 08:00 40 Objective WDWN NAD trach reduced breath sounds bilaterally with occasional rhonchi [id number] without MRG NABS nontender no HSM; GT no CC contractures skin changes noted nonfocal Current Medications Medications (Trade) Dose Ordered Sig/Subhash Route PRN Reason Start Time Stop Time Status Last Admin Dose Admin Acetaminophen (Tylenol) 650 mg Q4H PRN GT Temp > 100.5 07/22/17 16:15 08/20/17 21:29 07/27/17 06:18 Acetaminophen (Tylenol) 650 mg Q4H PRN GT MILD PAIN 1-3 07/22/17 16:15 08/21/17 08:59 Atorvastatin Calcium (Lipitor) 10 mg BEDTIME GT 07/21/17 22:30 08/20/17 22:29 07/26/17 21:50 Bisacodyl (Dulcolax) 10 mg DAILYPRN PRN RECTAL Constipation 2nd Line Agent 07/21/17 21:30 08/20/17 21:29 Clotrimazole (Lotrimin) 1 applic TWICE A DAY TOPIC 07/22/17 09:00 08/21/17 08:59 07/26/17 17:51 Colistimethate Sodium (Colistin) 100 mg Q12HR IVP 07/25/17 12:00 07/27/17 21:01 07/26/17 21:50 Finasteride (Proscar) 5 mg DAILY ORAL 07/22/17 09:00 08/21/17 08:59 07/26/17 09:06 Heparin Sodium (Porcine) (Heparin 5000 units/ml) 5,000 units EVERY 12 HOURS SUBQ 07/21/17 22:30 08/20/17 22:29 07/26/17 21:55 Lansoprazole (Prevacid) 30 mg DAILY GT 07/22/17 09:00 08/21/17 08:59 07/26/17 09:07 Magnesium Hydroxide (Mom) 30 ml DAILYPRN PRN GT CONSTIPATION 1ST LINE AGENT 07/21/17 21:30 08/20/17 21:29 Metoprolol Tartrate (Lopressor) 50 mg EVERY 12 HOURS GT 07/22/17 09:00 08/21/17 08:59 07/26/17 21:50 Multivitamins (Multivitamins W/ Minerals 15ml Liquid) 15 ml DAILY GT 07/22/17 09:00 08/21/17 08:59 07/26/17 09:06 Non-Formulary Medication (Non-Formulary Med) 1 ea DAILY ORAL 07/22/17 09:00 08/21/17 08:59 UNV Piperacillin Sod/ Tazobactam Sod 3.375 gm/Dextrose 55 ml @ 13.75 mls/ hr Q8HR IVPB 07/21/17 23:00 07/28/17 22:59 07/27/17 06:12 Sodium Hypochlorite (Dakin's Half Strength) 1 applic BEDTIME TOPIC 07/22/17 21:00 08/22/17 08:59 07/26/17 21:51 REJI OJEDA Jul 27, 2017 07:42
[2017-07-27 08:00] VITALS: BP 105/55
--- NOTE | 2017-07-27 08:22 | Infectious Diseases Prog Note ---
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 DM Anemia P: Continue Zosyn & Colistin will order CXR, UA, UC, Blood culture add IV Vancomycin Subjective ROS Limited/Unobtainable: Yes Constitutional: Reports: fever, other - [id number] Allergies: Coded Allergies: No Known Allergies (Unverified , 01/07/17) Objective Vital Signs Last 24 Hour Vital Signs Date Time Temp Pulse Resp B/P (MAP) Pulse Ox O2 Delivery O2 Flow Rate FiO2 07/27/17 07:32 70 25 40 07/27/17 06:48 100.9 07/27/17 06:10 101.0 07/27/17 04:59 72 27 40 07/27/17 04:00 40 07/27/17 04:00 99.9 65 20 125/65 100 Mechanical Ventilator 40 07/27/17 04:00 73 07/27/17 03:30 69 24 40 07/27/17 01:30 64 21 40 07/27/17 00:00 40 07/27/17 00:00 70 07/27/17 00:00 99.0 65 16 123/60 100 Mechanical Ventilator 40 07/26/17 23:30 65 21 40 07/26/17 21:50 82 129/63 07/26/17 21:15 82 20 40 07/26/17 21:12 85 21 Mechanical Ventilator 07/26/17 20:51 99.7 88 22 129/63 100 Mechanical Ventilator 40 07/26/17 20:00 40 07/26/17 20:00 89 07/26/17 19:30 86 22 40 07/26/17 17:09 76 16 40 07/26/17 16:00 40 07/26/17 16:00 98.2 85 17 129/70 100 Mechanical Ventilator 40 07/26/17 15:46 73 07/26/17 15:28 74 16 40 07/26/17 13:07 71 16 40 07/26/17 12:00 40 07/26/17 12:00 70 07/26/17 12:00 98.1 68 16 102/49 100 Mechanical Ventilator 40 07/26/17 11:32 79 16 40 07/26/17 09:18 77 16 40 07/26/17 09:07 82 114/45 Height (Feet): 6 Height (Inches): 0.00 Weight (Pounds): 180 HEENT: status post trach Respiratory/Chest: lungs clear, other - on ventilator Cardiovascular: normal rate Abdomen: soft, non tender, other - GT feeding Extremities: no edema, other - contracted Skin: ulcers, other - Foul smelling Neurologic/Psychiatric: unresponsiveness Current Medications Medications (Trade) Dose Ordered Sig/Subhash Route PRN Reason Start Time Stop Time Status Last Admin Dose Admin Acetaminophen (Tylenol) 650 mg Q4H PRN GT Temp > 100.5 07/22/17 16:15 08/20/17 21:29 07/27/17 06:18 Acetaminophen (Tylenol) 650 mg Q4H PRN GT MILD PAIN 1-3 07/22/17 16:15 08/21/17 08:59 Atorvastatin Calcium (Lipitor) 10 mg BEDTIME GT 07/21/17 22:30 08/20/17 22:29 07/26/17 21:50 Bisacodyl (Dulcolax) 10 mg DAILYPRN PRN RECTAL Constipation 2nd Line Agent 07/21/17 21:30 08/20/17 21:29 Clotrimazole (Lotrimin) 1 applic TWICE A DAY TOPIC 07/22/17 09:00 08/21/17 08:59 07/26/17 17:51 Colistimethate Sodium (Colistin) 100 mg Q12HR IVP 07/25/17 12:00 07/27/17 21:01 07/26/17 21:50 Finasteride (Proscar) 5 mg DAILY ORAL 07/22/17 09:00 08/21/17 08:59 07/26/17 09:06 Heparin Sodium (Porcine) (Heparin 5000 units/ml) 5,000 units EVERY 12 HOURS SUBQ 07/21/17 22:30 08/20/17 22:29 07/26/17 21:55 Lansoprazole (Prevacid) 30 mg DAILY GT 07/22/17 09:00 08/21/17 08:59 07/26/17 09:07 Magnesium Hydroxide (Mom) 30 ml DAILYPRN PRN GT CONSTIPATION 1ST LINE AGENT 07/21/17 21:30 08/20/17 21:29 Metoprolol Tartrate (Lopressor) 50 mg EVERY 12 HOURS GT 07/22/17 09:00 08/21/17 08:59 07/26/17 21:50 Multivitamins (Multivitamins W/ Minerals 15ml Liquid) 15 ml DAILY GT 07/22/17 09:00 08/21/17 08:59 07/26/17 09:06 Non-Formulary Medication (Non-Formulary Med) 1 ea DAILY ORAL 07/22/17 09:00 08/21/17 08:59 UNV Piperacillin Sod/ Tazobactam Sod 3.375 gm/Dextrose 55 ml @ 13.75 mls/ hr Q8HR IVPB 07/21/17 23:00 07/28/17 22:59 07/27/17 06:12 Sodium Hypochlorite (Dakin's Half Strength) 1 applic BEDTIME TOPIC 07/22/17 21:00 08/22/17 08:59 07/26/17 21:51 ABDOULAYE ALFONSO Jul 27, 2017 08:22
[2017-07-27] MEDS ORDERED: Vancomycin 1.5 GM/D5W 250ML IVPB ONE (09:00)
[2017-07-27] MEDS: Metoprolol Tartrate 50mg tab GT SCH ×2 (09:00→21:32)
[2017-07-27 09:56] LABS: BASOPHILS % (AUTO) 0.6 % (0.0-2.0); EOSINOPHILS % (AUTO) 3.8 % (0.0-3.0); LYMPHOCYTES % (AUTO) 23.4 % (20.0-45.0); MEAN CORPUSCULAR HEMOGLOBIN 27.9 PG (27.0-31.0); MEAN CORPUSCULAR HGB CONC 30.9 G/DL (32.0-36.0); MEAN CORPUSCULAR VOLUME 90 FL (80-99); MEAN PLATELET VOLUME 4.7 FL (6.5-10.1); MONOCYTES % (AUTO) 6.4 % (1.0-10.0); NEUTROPHILS % (AUTO) 65.7 % (45.0-75.0); PLATELET COUNT 409 K/UL (150-450); RED BLOOD COUNT 3.44 M/UL (4.70-6.10); RED CELL DISTRIBUTION WIDTH 16.5 % (11.6-14.8); WHITE BLOOD COUNT 10.4 K/UL (4.8-10.8)
[2017-07-27] MEDS: Heparin 5000 units/ml inj SUBQ SCH ×2 (09:56→21:43)
[2017-07-27] MEDS: Multivitamins W/Minerals 15 ML UDC GT SCH (10:12)
[2017-07-27] MEDS: Minocycline HCl 50mg cap ORAL SCH ×2 (10:21→21:39)
[2017-07-27 11:20] LABS: ANION GAP 10 mmol/L (5-15); CALCIUM 8.3 MG/DL (8.5-10.1); CARBON DIOXIDE 24 MMOL/L (21-32); CHLORIDE 106 MMOL/L (98-107); CREATININE 1.6 MG/DL (0.55-1.30); POTASSIUM 3.8 MMOL/L (3.5-5.1); SODIUM 140 MMOL/L (136-145)
--- NOTE | 2017-07-27 11:49 | General Progress Note ---
Assessment/Plan Assessment/Plan The patient's foot and distal LE ulcers are so severe, and in light of his flexion contractures and his lack of mobility, the only surgical treatment would be bilateral above knee amputations. The , who is the medical decision maker is refusing amputation. At this time I will respectfully sign off. If the changes her mind and wishes to pursue amputation, then I will re-evaluate. Subjective ROS Limited/Unobtainable: Yes Allergies: Coded Allergies: No Known Allergies (Unverified , 01/07/17) Subjective Patient was seen by me on 07/23/17 for gangrenous ulcers of b/l feet. He is bedridden with severe flexion contractures at the knees. He is being seen by ID as well as cardiology. There has been no significant change in the patient's status. Objective Last 24 Hour Vital Signs Date Time Temp Pulse Resp B/P (MAP) Pulse Ox O2 Delivery O2 Flow Rate FiO2 07/27/17 10:56 87 25 40 07/27/17 09:03 73 25 40 07/27/17 09:00 73 105/55 07/27/17 08:00 79 07/27/17 08:00 78 07/27/17 08:00 40 07/27/17 08:00 99.5 78 18 105/55 100 Mechanical Ventilator 40 07/27/17 07:32 70 25 40 07/27/17 06:48 100.9 07/27/17 06:10 101.0 07/27/17 04:59 72 27 40 07/27/17 04:00 40 07/27/17 04:00 99.9 65 20 125/65 100 Mechanical Ventilator 40 07/27/17 04:00 73 07/27/17 03:30 69 24 40 07/27/17 01:30 64 21 40 07/27/17 00:00 40 07/27/17 00:00 70 07/27/17 00:00 99.0 65 16 123/60 100 Mechanical Ventilator 40 07/26/17 23:30 65 21 40 07/26/17 21:50 82 129/63 07/26/17 21:15 82 20 40 07/26/17 21:12 85 21 Mechanical Ventilator 07/26/17 20:51 99.7 88 22 129/63 100 Mechanical Ventilator 40 07/26/17 20:00 40 07/26/17 20:00 89 07/26/17 19:30 86 22 40 07/26/17 17:09 76 16 40 07/26/17 16:00 40 07/26/17 16:00 98.2 85 17 129/70 100 Mechanical Ventilator 40 07/26/17 15:46 73 07/26/17 15:28 74 16 40 07/26/17 13:07 71 16 40 07/26/17 12:00 40 07/26/17 12:00 70 07/26/17 12:00 98.1 68 16 102/49 100 Mechanical Ventilator 40 Laboratory Tests 07/27/17 09:30: White Blood Count 10.4, Red Blood Count 3.44L, Hemoglobin 9.6L, Hematocrit 31.0L , Mean Corpuscular Volume 90, Mean Corpuscular Hemoglobin 27.9, Mean Corpuscular Hemoglobin Concent 30.9L, Red Cell Distribution Width 16.5H, Platelet Count 409, Mean Platelet Volume 4.7L, Neutrophils (%) (Auto) 65.7, Lymphocytes (%) (Auto) 23.4, Monocytes (%) (Auto) 6.4, Eosinophils (%) (Auto) 3.8H, Basophils (%) (Auto) 0.6, Sodium Level 140, Potassium Level 3.8, Chloride Level 106, Carbon Dioxide Level 24, Anion Gap 10, Blood Urea Nitrogen 40H, Creatinine 1.6H, Estimat Glomerular Filtration Rate , Glucose Level 185H, Calcium Level 8.3L Height (Feet): 6 Height (Inches): 0.00 Weight (Pounds): 180 ZULMA BARRIOS Jul 27, 2017 11:49
[2017-07-27 12:00] VITALS: BP 155/58
--- NOTE | 2017-07-27 12:16 | Diagnostic Imaging Report ---
Indication: Shortness of breath Technique: One view of the chest Comparison: 07/21/2017 Findings: Tracheostomy remains. Left chest pacemaker is again demonstrated. Bilateral right greater than left pleural effusions are again demonstrated. Diffuse interstitial and airspace edema is again demonstrated, unchanged. Impression: Unchanged, over 6 days, findings as above.
--- NOTE | 2017-07-27 12:34 | General Progress Note ---
Assessment/Plan Problem List: (1) Sepsis ICD Codes: A41.9 - Sepsis, unspecified organism SNOMED: 99975461 (2) Bacteremia ICD Codes: R78.81 - Bacteremia SNOMED: 4817492 (3) Pressure ulcer, heel ICD Codes: L89.609 - Pressure ulcer of unspecified heel, unspecified stage SNOMED: 261047951 (4) Pacemaker ICD Codes: Z95.0 - Presence of cardiac pacemaker SNOMED: 003416545, 302329348 (5) Abnormal laboratory test ICD Codes: R89.9 - Unspecified abnormal finding in specimens from other organs , systems and tissues SNOMED: 286053488 (6) Anemia ICD Codes: D64.9 - Anemia, unspecified SNOMED: 670381226 (7) Tracheostomy dependence ICD Codes: Z93.0 - Tracheostomy status; R65.20 - Severe sepsis without septic shock SNOMED: 488692161, 530942357 (8) Severe sepsis ICD Codes: A41.9 - Sepsis, unspecified organism; R65.20 - Severe sepsis without septic shock SNOMED: 01025183 Status: stable, not improved Assessment/Plan IV abx follow up cultures wound care wound eval appreciated refusing amputation vent resp rx gt feeds poor prognosis social sciences chair to meet with re hospice Subjective ROS Limited/Unobtainable: Yes Constitutional: Reports: malaise, weakness HEENT: Reports: no symptoms Cardiovascular: Reports: no symptoms Respiratory: Reports: cough, sputum Gastrointestinal/Abdominal: Reports: difficulty swallowing Genitourinary: Reports: no symptoms Neurologic/Psychiatric: Reports: pre-existing deficit Endocrine: Reports: no symptoms Hematologic/Lymphatic: Reports: anemia Allergies: Coded Allergies: No Known Allergies (Unverified , 01/07/17) All Systems: reviewed and negative except above Subjective no events. +fevers. declined amputation. still full code. on the vent.poorly responsive Objective Last 24 Hour Vital Signs Date Time Temp Pulse Resp B/P (MAP) Pulse Ox O2 Delivery O2 Flow Rate FiO2 07/27/17 11:42 74 07/27/17 11:42 40 07/27/17 10:56 87 25 40 07/27/17 09:03 73 25 40 07/27/17 09:00 73 105/55 07/27/17 08:00 79 07/27/17 08:00 78 07/27/17 08:00 40 07/27/17 08:00 99.5 78 18 105/55 100 Mechanical Ventilator 40 07/27/17 07:32 70 25 40 07/27/17 06:48 100.9 07/27/17 06:10 101.0 07/27/17 04:59 72 27 40 07/27/17 04:00 40 07/27/17 04:00 99.9 65 20 125/65 100 Mechanical Ventilator 40 07/27/17 04:00 73 07/27/17 03:30 69 24 40 07/27/17 01:30 64 21 40 07/27/17 00:00 40 07/27/17 00:00 70 07/27/17 00:00 99.0 65 16 123/60 100 Mechanical Ventilator 40 07/26/17 23:30 65 21 40 07/26/17 21:50 82 129/63 07/26/17 21:15 82 20 40 07/26/17 21:12 85 21 Mechanical Ventilator 07/26/17 20:51 99.7 88 22 129/63 100 Mechanical Ventilator 40 07/26/17 20:00 40 07/26/17 20:00 89 07/26/17 19:30 86 22 40 07/26/17 17:09 76 16 40 07/26/17 16:00 40 07/26/17 16:00 98.2 85 17 129/70 100 Mechanical Ventilator 40 07/26/17 15:46 73 07/26/17 15:28 74 16 40 07/26/17 13:07 71 16 40 Laboratory Tests 07/27/17 09:30: White Blood Count 10.4, Red Blood Count 3.44L, Hemoglobin 9.6L, Hematocrit 31.0L , Mean Corpuscular Volume 90, Mean Corpuscular Hemoglobin 27.9, Mean Corpuscular Hemoglobin Concent 30.9L, Red Cell Distribution Width 16.5H, Platelet Count 409, Mean Platelet Volume 4.7L, Neutrophils (%) (Auto) 65.7, Lymphocytes (%) (Auto) 23.4, Monocytes (%) (Auto) 6.4, Eosinophils (%) (Auto) 3.8H, Basophils (%) (Auto) 0.6, Sodium Level 140, Potassium Level 3.8, Chloride Level 106, Carbon Dioxide Level 24, Anion Gap 10, Blood Urea Nitrogen 40H, Creatinine 1.6H, Estimat Glomerular Filtration Rate , Glucose Level 185H, Calcium Level 8.3L Height (Feet): 6 Height (Inches): 0.00 Weight (Pounds): 180 General Appearance: WD/WN, lethargic Neck: non-tender, normal alignment, supple Cardiovascular: normal rate Respiratory/Chest: chest wall non-tender, lungs clear, normal breath sounds, no respiratory distress Abdomen: normal bowel sounds, non tender, soft, no organomegaly Objective multiple wounds on hips,buttcoks and LE UWENDIE MAI Jul 27, 2017 12:34
[2017-07-27 16:00] VITALS: BP 100/46
[2017-07-27 20:00] VITALS: BP 117/61
[2017-07-27] MEDS ORDERED: KCl 10% 40mEq/30ml liquid GT ONE (21:15)
[2017-07-27] MEDS: Dakin's 0.25% (Half Strength) 16oz TOPIC SCH (21:40)
--- NOTE | 2017-07-27 23:30 | Progress Note ---
DATE: 07/27/2017 CARDIOLOGY PROGRESS NOTE SUBJECTIVE: The patient's family is refusing amputation. He remains on ventilator support and Full Code. He is poorly responsive. OBJECTIVE: VITAL SIGNS: Blood pressure is 105/55, pulse 73, and respiratory rate 25. LUNGS: Bilateral breath sounds. HEART: Regular rhythm and rate. Normal S1 and S2. ABDOMEN: Soft with G-tube. EXTREMITIES: No edema. NEUROLOGICAL: Non-communicative. SKIN: Ischemic changes of the lower extremities noted with ulcers. DIAGNOSTIC DATA: Chest x-ray reveals bilateral pleural effusions and interstitial disease unchanged. IMPRESSION: 1. Healthcare-acquired pneumonia. 2. Acute on chronic diastolic congestive heart failure. 3. Cardiac pacemaker. 4. Ventilator-dependent respiratory failure. 5. Peripheral artery disease with ischemic lower extremities. 6. Severe dementia. PLAN: 1. Considering hospice. 2. Diuresis. 3. Antimicrobials. 4. Ventilator support. 5. Nutrition by feeding tube. 6. Skin care. 7. Comfort measures. Stanislav Jain M.D. : Anh JOB#: [id number] CC:
[2017-07-28] VITALS (7 sets, daily range): BP systolic 79–120; BP diastolic 38–75
[2017-07-28 03:19] LABS: KETONES,URINE NEGATIVE (NEGATIVE); LEUKOCYTE ESTERASE ,URINE 1+ (NEGATIVE); NITRITE,URINE NEGATIVE (NEGATIVE); PH,URINE 6.5 (4.5-8.0); PROTEIN,URINE 2+ (NEGATIVE); UROBILINOGEN,URINE NORMAL MG/DL (0.0-1.0)
[2017-07-28 04:30] LABS: APPEARANCE,URINE SLIGHTLY CLOUDY
[2017-07-28 04:31] LABS: BACTERIA,URINE FEW /HPF; COARSE GRANULAR CASTS,URINE 20-30 /LPF; SQUAMOUS EPITHELIAL CELL,UR MODERATE /LPF (NONE/OCC)
[2017-07-28] MEDS: Piperacillin/Tazobactam 3.375 GM in D5W 55 ML IVPB SCH ×3 (05:41→21:33)
[2017-07-28] MEDS: Minocycline HCl 50mg cap ORAL SCH ×2 (08:49→21:34)
[2017-07-28] MEDS: Metoprolol Tartrate 50mg tab GT SCH ×2 (08:51→20:51)
[2017-07-28] MEDS: Heparin 5000 units/ml inj SUBQ SCH ×2 (08:59→21:34)
[2017-07-28] MEDS ORDERED: Vancomycin 750mg/NS 250ml IVPB SCH (09:00)
[2017-07-28] MEDS: Multivitamins W/Minerals 15 ML UDC GT SCH (09:01)
--- NOTE | 2017-07-28 10:43 | Infectious Diseases Prog Note ---
"Assessment/Plan Assessment/Plan antibiotics : vancomycin iv, minocycline, zosyn A 1. acenitobacter UTI 2. serratia | achromobacter pneumonia 3. leucocytosis resolved 4. respiratory failure 5. rectal VRE colonization 6. necrotic ulcers of legs 7. + blood cultures with coag neg staph likely contaminated 8. nasal MRSA colonization 9. increased creatinine 10. fever improving P 1. continue zosyn, monocycline 2. d/c iv vancomycin 3. will follow up cultures Subjective ROS Limited/Unobtainable: Yes Allergies: Coded Allergies: No Known Allergies (Unverified , 01/07/17) Objective Vital Signs Last 24 Hour Vital Signs Date Time Temp Pulse Resp B/P (MAP) Pulse Ox O2 Delivery O2 Flow Rate FiO2 07/28/17 09:20 90 22 40 07/28/17 08:51 88 120/60 07/28/17 08:00 40 07/28/17 08:00 101.7 78 24 99/57 100 Mechanical Ventilator 40 07/28/17 08:00 72 07/28/17 07:25 88 20 40 07/28/17 05:22 22 23 40 07/28/17 04:00 88 07/28/17 04:00 98.7 89 22 120/60 100 Mechanical Ventilator 40 07/28/17 04:00 40 07/28/17 03:21 87 23 40 07/28/17 01:34 84 22 40 07/28/17 00:00 75 07/28/17 00:00 99.2 69 19 104/51 100 Mechanical Ventilator 40 07/27/17 23:59 72 23 40 07/27/17 21:35 68 22 40 07/27/17 21:32 95 100/46 07/27/17 20:19 100.4 07/27/17 20:00 100.5 100 22 117/61 100 Mechanical Ventilator 40 07/27/17 20:00 93 07/27/17 20:00 40 07/27/17 19:53 95 25 40 07/27/17 17:38 86 23 40 07/27/17 16:00 100.4 80 20 100/46 100 Mechanical Ventilator 40 07/27/17 16:00 79 07/27/17 16:00 40 07/27/17 15:46 78 24 40 07/27/17 12:51 83 22 40 07/27/17 12:00 100.2 88 21 155/58 100 Mechanical Ventilator 40 07/27/17 11:42 74 07/27/17 11:42 40 07/27/17 10:56 87 25 40 Height (Feet): 6 Height (Inches): 0.00 Weight (Pounds): 180 HEENT: status post trach Respiratory/Chest: lungs clear Cardiovascular: normal rate, regular rhythm, no gallop/murmur Abdomen: soft, non tender, other - GT Extremities: no edema Laboratory Tests Test 07/28/17 02:30 Urine Color Pale yellow Urine Appearance Slightly cloudy Urine pH 6.5 (4.5-8.0) Urine Specific [place] 1.010 (1.005-1.035) Urine Protein 2+ (NEGATIVE) H Urine Glucose (UA) Negative (NEGATIVE) Urine Ketones Negative (NEGATIVE) Urine Occult Blood 2+ (NEGATIVE) H Urine Nitrite Negative (NEGATIVE) Urine Bilirubin Negative (NEGATIVE) Urine Urobilinogen Normal MG/DL (0.0-1.0) Urine Leukocyte Esterase 1+ (NEGATIVE) H Urine RBC 2-4 /HPF (0 - 0) H Urine WBC 2-4 /HPF (0 - 0) Urine Squamous Epithelial Cells Moderate /LPF (NONE/OCC) H Urine Bacteria Few /HPF (NONE) Urine Coarse Granular Casts 20-30 /LPF (NONE) H VINICIO VAUGHAN Jul 28, 2017 10:43"
[2017-07-28] MEDS: Acetaminophen 650mg/20.3ml GT PRN ×2 (10:48→23:49)
--- NOTE | 2017-07-28 11:03 | General Progress Note ---
Assessment/Plan Problem List: (1) Sepsis ICD Codes: A41.9 - Sepsis, unspecified organism SNOMED: 95651605 (2) Bacteremia ICD Codes: R78.81 - Bacteremia SNOMED: 3341852 (3) Pressure ulcer, heel ICD Codes: L89.609 - Pressure ulcer of unspecified heel, unspecified stage SNOMED: 077896087 (4) Pacemaker ICD Codes: Z95.0 - Presence of cardiac pacemaker SNOMED: 046310012, 798703020 (5) Abnormal laboratory test ICD Codes: R89.9 - Unspecified abnormal finding in specimens from other organs , systems and tissues SNOMED: 919872190 (6) Anemia ICD Codes: D64.9 - Anemia, unspecified SNOMED: 087260995 (7) Tracheostomy dependence ICD Codes: Z93.0 - Tracheostomy status; R65.20 - Severe sepsis without septic shock SNOMED: 894182275, 437726839 (8) Severe sepsis ICD Codes: A41.9 - Sepsis, unspecified organism; R65.20 - Severe sepsis without septic shock SNOMED: 87037430 Status: stable, progressing Assessment/Plan IV abx follow up cultures wound care wound eval appreciated refusing amputation vent resp rx gt feeds poor prognosis nursing home social worker to meet with re hospice Subjective ROS Limited/Unobtainable: Yes Constitutional: Reports: fever, malaise, weakness HEENT: Reports: no symptoms Cardiovascular: Reports: no symptoms Respiratory: Reports: cough Gastrointestinal/Abdominal: Reports: difficulty swallowing Genitourinary: Reports: no symptoms Neurologic/Psychiatric: Reports: pre-existing deficit Endocrine: Reports: no symptoms Hematologic/Lymphatic: Reports: anemia Allergies: Coded Allergies: No Known Allergies (Unverified , 01/07/17) All Systems: reviewed and negative except above Subjective no events. +fevers. poorly responsive. on multiple abx. refused amputation. Objective Last 24 Hour Vital Signs Date Time Temp Pulse Resp B/P (MAP) Pulse Ox O2 Delivery O2 Flow Rate FiO2 07/28/17 09:20 90 22 40 07/28/17 08:51 88 120/60 07/28/17 08:00 40 07/28/17 08:00 101.7 78 24 99/57 100 Mechanical Ventilator 40 07/28/17 08:00 72 07/28/17 07:25 88 20 40 07/28/17 05:22 22 23 40 07/28/17 04:00 88 07/28/17 04:00 98.7 89 22 120/60 100 Mechanical Ventilator 40 07/28/17 04:00 40 07/28/17 03:21 87 23 40 07/28/17 01:34 84 22 40 07/28/17 00:00 75 07/28/17 00:00 99.2 69 19 104/51 100 Mechanical Ventilator 40 07/27/17 23:59 72 23 40 07/27/17 21:35 68 22 40 07/27/17 21:32 95 100/46 07/27/17 20:19 100.4 07/27/17 20:00 100.5 100 22 117/61 100 Mechanical Ventilator 40 07/27/17 20:00 93 07/27/17 20:00 40 07/27/17 19:53 95 25 40 07/27/17 17:38 86 23 40 07/27/17 16:00 100.4 80 20 100/46 100 Mechanical Ventilator 40 07/27/17 16:00 79 07/27/17 16:00 40 07/27/17 15:46 78 24 40 07/27/17 12:51 83 22 40 07/27/17 12:00 100.2 88 21 155/58 100 Mechanical Ventilator 40 07/27/17 11:42 74 07/27/17 11:42 40 Laboratory Tests 07/28/17 02:30: Urine Color Pale yellow, Urine Appearance Slightly cloudy, Urine pH 6.5, Urine Specific [place] 1.010, Urine Protein 2+H, Urine Glucose (UA) Negative, Urine Ketones Negative, Urine Occult Blood 2+H, Urine Nitrite Negative, Urine Bilirubin Negative, Urine Urobilinogen Normal, Urine Leukocyte Esterase 1+H, Urine RBC 2-4H, Urine WBC 2-4, Urine Squamous Epithelial Cells ModerateH, Urine Bacteria Few, Urine Coarse Granular Casts 20-30H Height (Feet): 6 Height (Inches): 0.00 Weight (Pounds): 180 General Appearance: WD/WN, lethargic, confused Neck: normal alignment, supple Cardiovascular: normal rate, regular rhythm Respiratory/Chest: chest wall non-tender, lungs clear, normal breath sounds, no respiratory distress Abdomen: normal bowel sounds, non tender, soft, no organomegaly Objective multiple wounds on hips,buttcoks and LE WENDIE CASTELLANOS Jul 28, 2017 11:03
[2017-07-28] MEDS ORDERED: Sodium Chloride 500ML 500 ML IVPB ONE (12:15)
--- NOTE | 2017-07-28 19:33 | Pulmonology Progress Note ---
Assessment/Plan Assessment/Plan IMPRESSION Anemia acute on chronic renal failure PVD respiratory failure trach GT chronic encephalopathy diabetes PLAN vent as is for now no wean for now monitor for change suction as needed monitor labs for change and intervene monitor HH continue to follow and monitor agree with hospice and terminal care if agrees prognosis poor for meaningful recovery would need surgery but not a candidate impression, plan, and exam edited and reviewed in detail care discussed with RN Subjective ROS Limited/Unobtainable: Yes Allergies: Coded Allergies: No Known Allergies (Unverified , 01/07/17) Subjective care noted vent reviewed and d/w RT await decision for hospice secretions able to clear orders noted and reviewed Objective Last 24 Hour Vital Signs Date Time Temp Pulse Resp B/P (MAP) Pulse Ox O2 Delivery O2 Flow Rate FiO2 07/28/17 17:16 74 21 40 07/28/17 16:00 98.2 83 19 118/75 100 Mechanical Ventilator 40 07/28/17 15:24 73 07/28/17 15:24 40 07/28/17 15:03 71 24 40 07/28/17 13:29 63 18 40 07/28/17 12:50 73 92/42 07/28/17 12:00 66 07/28/17 12:00 40 07/28/17 12:00 100.2 66 22 79/38 100 Mechanical Ventilator 40 07/28/17 11:35 100.3 07/28/17 11:29 72 21 40 07/28/17 09:20 90 22 40 07/28/17 08:51 88 120/60 07/28/17 08:00 40 07/28/17 08:00 101.7 78 24 99/57 100 Mechanical Ventilator 40 07/28/17 08:00 72 07/28/17 07:25 88 20 40 07/28/17 05:22 22 23 40 07/28/17 04:00 88 07/28/17 04:00 98.7 89 22 120/60 100 Mechanical Ventilator 40 07/28/17 04:00 40 07/28/17 03:21 87 23 40 07/28/17 01:34 84 22 40 07/28/17 00:00 75 07/28/17 00:00 99.2 69 19 104/51 100 Mechanical Ventilator 40 07/27/17 23:59 72 23 40 07/27/17 21:35 68 22 40 07/27/17 21:32 95 100/46 07/27/17 20:19 100.4 07/27/17 20:00 100.5 100 22 117/61 100 Mechanical Ventilator 40 07/27/17 20:00 93 07/27/17 20:00 40 07/27/17 19:53 95 25 40 Intake and Output 07/28/17 07/29/17 19:00 07:00 Intake Total 700 ml Output Total 550 ml Balance 700 ml -550 ml Intake Free Water 150 ml Tube Feeding 550 ml Output Urine Total 550 ml # Bowel Movements 1 Objective WDWN NAD trach reduced breath sounds bilaterally with occasional rhonchi [id number] without MRG NABS nontender no HSM; GT no CC contractures skin changes noted nonfocal Laboratory Tests 07/28/17 02:30: Urine Color Pale yellow, Urine Appearance Slightly cloudy, Urine pH 6.5, Urine Specific [place] 1.010, Urine Protein 2+H, Urine Glucose (UA) Negative, Urine Ketones Negative, Urine Occult Blood 2+H, Urine Nitrite Negative, Urine Bilirubin Negative, Urine Urobilinogen Normal, Urine Leukocyte Esterase 1+H, Urine RBC 2-4H, Urine WBC 2-4, Urine Squamous Epithelial Cells ModerateH, Urine Bacteria Few, Urine Coarse Granular Casts 20-30H Current Medications Medications (Trade) Dose Ordered Sig/Suhbash Route PRN Reason Start Time Stop Time Status Last Admin Dose Admin Acetaminophen (Tylenol) 650 mg Q4H PRN GT Temp > 100.5 07/22/17 16:15 08/20/17 21:29 07/27/17 19:49 Acetaminophen (Tylenol) 650 mg Q4H PRN GT MILD PAIN 1-3 07/22/17 16:15 08/21/17 08:59 07/28/17 10:48 Atorvastatin Calcium (Lipitor) 10 mg BEDTIME GT 07/21/17 22:30 08/20/17 22:29 07/27/17 21:32 Bisacodyl (Dulcolax) 10 mg DAILYPRN PRN RECTAL Constipation 2nd Line Agent 07/21/17 21:30 08/20/17 21:29 Clotrimazole (Lotrimin) 1 applic TWICE A DAY TOPIC 07/22/17 09:00 08/21/17 08:59 07/28/17 18:23 Finasteride (Proscar) 5 mg DAILY ORAL 07/22/17 09:00 08/21/17 08:59 07/28/17 08:52 Heparin Sodium (Porcine) (Heparin 5000 units/ml) 5,000 units EVERY 12 HOURS SUBQ 07/21/17 22:30 08/20/17 22:29 07/28/17 08:59 Lansoprazole (Prevacid) 30 mg DAILY GT 07/22/17 09:00 08/21/17 08:59 07/28/17 08:49 Magnesium Hydroxide (Mom) 30 ml DAILYPRN PRN GT CONSTIPATION 1ST LINE AGENT 07/21/17 21:30 08/20/17 21:29 Metoprolol Tartrate (Lopressor) 50 mg EVERY 12 HOURS GT 07/22/17 09:00 08/21/17 08:59 07/28/17 08:51 Minocycline HCl (Minocin) 100 mg Q12HR ORAL 07/27/17 10:00 08/03/17 09:59 07/28/17 08:49 Multivitamins (Multivitamins W/ Minerals 15ml Liquid) 15 ml DAILY GT 07/22/17 09:00 08/21/17 08:59 07/28/17 09:01 Non-Formulary Medication (Non-Formulary Med) 1 ea DAILY ORAL 07/22/17 09:00 08/21/17 08:59 UNV Piperacillin Sod/ Tazobactam Sod 3.375 gm/Dextrose 55 ml @ 13.75 mls/ hr Q8HR IVPB 07/21/17 23:00 08/01/17 22:59 07/28/17 14:48 Sodium Hypochlorite (Dakin's Half Strength) 1 applic BEDTIME TOPIC 07/22/17 21:00 08/22/17 08:59 07/27/17 21:40 REJI OJEDA Jul 28, 2017 19:33
[2017-07-28] MEDS: Dakin's 0.25% (Half Strength) 16oz TOPIC SCH (21:35)
[2017-07-29] VITALS: BP 99/50
--- NOTE | 2017-07-29 00:30 | Progress Note ---
DATE: 07/28/2017 CARDIOLOGY PROGRESS NOTE SUBJECTIVE: The patient remains on ventilator support. He is non-communicative at baseline. No plan for weaning. The patient continues to have ischemic signs of his lower extremities, however, family members have declined amputation. OBJECTIVE: VITAL SIGNS: Blood pressure 118/75, earlier 79/38, heart rate 66, respiratory 22, and temperature max 100.3. LUNGS: Bilateral breath sounds. Thin trach secretions. HEART: Regular rhythm and rate. Normal S1, S2. Monitor with sinus and demand pacing. ABDOMEN: Soft. EXTREMITIES: Trace edema. IMPRESSION: 1. Sepsis. 2. Ischemic lower extremities. 3. Peripheral artery disease. 4. Ventilator-dependent respiratory failure. 5. Pacemaker. 6. Paroxysmal atrial fibrillation. 7. Chronic encephalopathy. 8. Episodes of hypotension suggestive of septic shock. PLAN: 1. Antimicrobials. 2. Skin care. 3. Maintain beta-blockade and anti-platelet drugs. 4. No surgical intervention per family member. 5. Hospice plan is under consideration and appropriate. 6. Intravenous fluid challenge for low blood pressure. Stanislav Jain M.D. DR: AMADA JOB#: [id number] CC:
[2017-07-29 04:00] VITALS: BP 132/60
[2017-07-29] MEDS: Piperacillin/Tazobactam 3.375 GM in D5W 55 ML IVPB SCH ×3 (06:21→21:37)
[2017-07-29 08:00] VITALS: BP 106/51
[2017-07-29] MEDS: Heparin 5000 units/ml inj SUBQ SCH ×2 (08:30→21:14)
[2017-07-29] MEDS: Minocycline HCl 50mg cap ORAL SCH ×2 (08:31→21:12)
[2017-07-29] MEDS: Multivitamins W/Minerals 15 ML UDC GT SCH (08:31)
[2017-07-29] MEDS: Metoprolol Tartrate 50mg tab GT SCH ×2 (08:32→21:00)
--- NOTE | 2017-07-29 09:01 | General Progress Note ---
Assessment/Plan Problem List: (1) Sepsis ICD Codes: A41.9 - Sepsis, unspecified organism SNOMED: 29185004 (2) Bacteremia ICD Codes: R78.81 - Bacteremia SNOMED: 1938101 (3) Pressure ulcer, heel ICD Codes: L89.609 - Pressure ulcer of unspecified heel, unspecified stage SNOMED: 980951140 (4) Pacemaker ICD Codes: Z95.0 - Presence of cardiac pacemaker SNOMED: 478726850, 662133558 (5) Abnormal laboratory test ICD Codes: R89.9 - Unspecified abnormal finding in specimens from other organs , systems and tissues SNOMED: 812236202 (6) Anemia ICD Codes: D64.9 - Anemia, unspecified SNOMED: 135688787 (7) Tracheostomy dependence ICD Codes: Z93.0 - Tracheostomy status; R65.20 - Severe sepsis without septic shock SNOMED: 734704412, 730514765 (8) Severe sepsis ICD Codes: A41.9 - Sepsis, unspecified organism; R65.20 - Severe sepsis without septic shock SNOMED: 45082690 Status: stable, deteriorating Assessment/Plan IV abx follow up cultures wound care wound eval appreciated refusing amputation vent resp rx gt feeds poor prognosis case management social worker to meet with re hospice Subjective ROS Limited/Unobtainable: Yes Constitutional: Reports: malaise, weakness HEENT: Reports: no symptoms Cardiovascular: Reports: no symptoms Respiratory: Reports: cough, sputum Gastrointestinal/Abdominal: Reports: difficulty swallowing Genitourinary: Reports: no symptoms Neurologic/Psychiatric: Reports: pre-existing deficit Endocrine: Reports: no symptoms Hematologic/Lymphatic: Reports: no symptoms Allergies: Coded Allergies: No Known Allergies (Unverified , 01/07/17) All Systems: reviewed and negative except above Subjective no events. fevers better. on the vent. multiple wounds- not improved. refused surgery Objective Last 24 Hour Vital Signs Date Time Temp Pulse Resp B/P (MAP) Pulse Ox O2 Delivery O2 Flow Rate FiO2 07/29/17 08:32 88 106/51 07/29/17 08:00 40 07/29/17 08:00 97.9 88 23 106/51 100 Mechanical Ventilator 40 07/29/17 07:23 87 22 40 07/29/17 05:16 82 24 40 07/29/17 04:00 40 07/29/17 04:00 84 07/29/17 04:00 97.2 86 24 132/60 100 Mechanical Ventilator 40 07/29/17 03:30 83 22 40 07/29/17 01:05 70 16 40 07/29/17 00:19 100.0 07/29/17 00:00 40 07/29/17 00:00 101.0 89 18 99/50 100 Mechanical Ventilator 40 07/29/17 00:00 90 07/28/17 22:48 97 20 40 07/28/17 20:51 74 102/48 07/28/17 20:50 74 20 40 07/28/17 20:00 40 07/28/17 20:00 98.4 81 18 102/48 100 Mechanical Ventilator 40 07/28/17 20:00 88 07/28/17 19:30 76 24 40 07/28/17 17:16 74 21 40 07/28/17 16:00 98.2 83 19 118/75 100 Mechanical Ventilator 40 07/28/17 15:24 73 07/28/17 15:24 40 07/28/17 15:03 71 24 40 07/28/17 13:29 63 18 40 07/28/17 12:50 73 92/42 07/28/17 12:00 66 07/28/17 12:00 40 07/28/17 12:00 100.2 66 22 79/38 100 Mechanical Ventilator 40 07/28/17 11:35 100.3 07/28/17 11:29 72 21 40 07/28/17 09:20 90 22 40 Intake and Output 07/29/17 07/30/17 18:59 06:59 Intake Total 50 ml Balance 50 ml Tube Feeding 50 ml Height (Feet): 6 Height (Inches): 0.00 Weight (Pounds): 180 General Appearance: WD/WN, alert Neck: supple Cardiovascular: regular rhythm Respiratory/Chest: lungs clear, normal breath sounds Abdomen: normal bowel sounds, non tender, soft, no organomegaly Edema: no edema noted Arm (L), no edema noted Arm (R), no edema noted Leg (L), no edema noted Leg (R), no edema noted Pedal (L), no edema noted Pedal (R), no edema noted Generalized Neurologic: disoriented, unresponsive, aphasia Objective multiple wounds on hips,buttcoks and LE WENDIE CASTELLANOS Jul 29, 2017 09:01
--- NOTE | 2017-07-29 10:03 | Pulmonology Progress Note ---
Assessment/Plan Assessment/Plan IMPRESSION Anemia acute on chronic renal failure PVD respiratory failure trach GT chronic encephalopathy diabetes PLAN vent as is for now no wean for now and no needed changes monitor for change suction as needed monitor labs for change and intervene monitor HH and monitor continue to follow and assist with pulmonary needs agree with hospice and terminal care if agrees prognosis poor for meaningful recovery would need surgery but not a candidate impression, plan, and exam edited and reviewed in detail care discussed with RN Subjective ROS Limited/Unobtainable: Yes Allergies: Coded Allergies: No Known Allergies (Unverified , 01/07/17) Subjective care noted vent reviewed and d/w RT await decision for hospice secretions able to clear orders noted and reviewed Objective Last 24 Hour Vital Signs Date Time Temp Pulse Resp B/P (MAP) Pulse Ox O2 Delivery O2 Flow Rate FiO2 07/29/17 09:20 84 27 40 07/29/17 08:32 88 106/51 07/29/17 08:00 40 07/29/17 08:00 97.9 88 23 106/51 100 Mechanical Ventilator 40 07/29/17 08:00 88 07/29/17 07:23 87 22 40 07/29/17 05:16 82 24 40 07/29/17 04:00 40 07/29/17 04:00 84 07/29/17 04:00 97.2 86 24 132/60 100 Mechanical Ventilator 40 07/29/17 03:30 83 22 40 07/29/17 01:05 70 16 40 07/29/17 00:19 100.0 07/29/17 00:00 40 07/29/17 00:00 101.0 89 18 99/50 100 Mechanical Ventilator 40 07/29/17 00:00 90 07/28/17 22:48 97 20 40 07/28/17 20:51 74 102/48 07/28/17 20:50 74 20 40 07/28/17 20:00 40 07/28/17 20:00 98.4 81 18 102/48 100 Mechanical Ventilator 40 07/28/17 20:00 88 07/28/17 19:30 76 24 40 07/28/17 17:16 74 21 40 07/28/17 16:00 98.2 83 19 118/75 100 Mechanical Ventilator 40 07/28/17 15:24 73 07/28/17 15:24 40 07/28/17 15:03 71 24 40 07/28/17 13:29 63 18 40 07/28/17 12:50 73 92/42 07/28/17 12:00 66 07/28/17 12:00 40 07/28/17 12:00 100.2 66 22 79/38 100 Mechanical Ventilator 40 07/28/17 11:35 100.3 07/28/17 11:29 72 21 40 Intake and Output 07/29/17 07/30/17 19:00 07:00 Intake Total 250 ml Balance 250 ml Intake Free Water 100 ml Tube Feeding 150 ml Objective WDWN NAD trach reduced breath sounds bilaterally with occasional rhonchi [id number] without MRG NABS nontender no HSM; GT no CC contractures skin changes noted nonfocal Microbiology Date/Time Source Procedure Growth Status 07/27/17 09:00 Blood Blood Culture - Preliminary NO GROWTH AFTER 24 HOURS Resulted 07/27/17 08:45 Blood Blood Culture - Preliminary NO GROWTH AFTER 24 HOURS Resulted Current Medications Medications (Trade) Dose Ordered Sig/Subhash Route PRN Reason Start Time Stop Time Status Last Admin Dose Admin Acetaminophen (Tylenol) 650 mg Q4H PRN GT Temp > 100.5 07/22/17 16:15 08/20/17 21:29 07/28/17 23:49 Acetaminophen (Tylenol) 650 mg Q4H PRN GT MILD PAIN 1-3 07/22/17 16:15 08/21/17 08:59 07/28/17 10:48 Atorvastatin Calcium (Lipitor) 10 mg BEDTIME GT 07/21/17 22:30 08/20/17 22:29 07/28/17 21:34 Bisacodyl (Dulcolax) 10 mg DAILYPRN PRN RECTAL Constipation 2nd Line Agent 07/21/17 21:30 08/20/17 21:29 Clotrimazole (Lotrimin) 1 applic TWICE A DAY TOPIC 07/22/17 09:00 08/21/17 08:59 07/29/17 08:31 Finasteride (Proscar) 5 mg DAILY ORAL 07/22/17 09:00 08/21/17 08:59 07/29/17 08:31 Heparin Sodium (Porcine) (Heparin 5000 units/ml) 5,000 units EVERY 12 HOURS SUBQ 07/21/17 22:30 08/20/17 22:29 07/29/17 08:30 Lansoprazole (Prevacid) 30 mg DAILY GT 07/22/17 09:00 08/21/17 08:59 07/29/17 08:30 Magnesium Hydroxide (Mom) 30 ml DAILYPRN PRN GT CONSTIPATION 1ST LINE AGENT 07/21/17 21:30 08/20/17 21:29 Metoprolol Tartrate (Lopressor) 50 mg EVERY 12 HOURS GT 07/22/17 09:00 08/21/17 08:59 07/28/17 08:51 Minocycline HCl (Minocin) 100 mg Q12HR ORAL 07/27/17 10:00 08/03/17 09:59 07/29/17 08:31 Multivitamins (Multivitamins W/ Minerals 15ml Liquid) 15 ml DAILY GT 07/22/17 09:00 08/21/17 08:59 07/29/17 08:31 Non-Formulary Medication (Non-Formulary Med) 1 ea DAILY ORAL 07/22/17 09:00 08/21/17 08:59 UNV Piperacillin Sod/ Tazobactam Sod 3.375 gm/Dextrose 55 ml @ 13.75 mls/ hr Q8HR IVPB 07/21/17 23:00 08/01/17 22:59 07/29/17 06:21 Sodium Hypochlorite (Dakin's Half Strength) 1 applic BEDTIME TOPIC 07/22/17 21:00 08/22/17 08:59 07/28/17 21:35 REJI OJEDA Jul 29, 2017 10:03
--- NOTE | 2017-07-29 10:28 | Wound Nurse Progress Note ---
Wound RN Progress Note Wound Consult patient has extensive wounds to bilateral feet, lower legs and heels, and sacral area follow with with attending MD for any further change in skin noted Reassessment #1 right buttock scattered stage 3 pressure ulcers. #2 coccyx unstageable pressure ulcer.- #3 sacral unstageable pressure ulcer. #4 right aspect of sacral stage unstageable pressure ulcer #5 left aspect of sacral stage 3 pressure ulcer. #6 left ischial tuberosity unstageable pressure ulcer. #7 left trochanter unstageable pressure ulcer. #8 right lateral knee unstageable pressure ulcer. #9 right lateral lower knee unstageable pressure ulcer. #10 right anterior lower knee scattered scabs #11 right lateral lower leg extending to malleolus unstageable pressure ulcer. #12 left dorsal aspect of foot unstageable pressure ulcer. #13 left medial foot scattered scabs. #14 left heel unstageable pressure ulcer. #15 left lateral lower leg extending to malleolus unstageable pressure ulcer. #16 left lateral entire foot unstageable pressure ulcer. #17 left knee scattered scar tissue. #18 left lower knee unstageable pressure ulcer. #19 left anterior knee unstagebale pressure ulcer. #20 right lateral foot extending to heel unstageable pressure ulcer. #21 right dorsal aspect of foot deep tissue injury pressure ulcer. #22 right medial foot scattered stage 1 pressure ulcer. #23 scrotal chemical burn with erosion. #24 rash scattered to posterior back extending to left and right arm. #25 left 3rd middle finger traumatic injury-scab appearing #26 right anterior hand scattered linear skin tears scab appearing. #27 mid lower back stage 2 pressure ulcer . Recommendation. -Local wound care as ordered - Apply p200 low air loss mattress for wound and skin management. - Turn and reposition. -Offload affected sites, -Keep clean and dry. -Optimize nutrition. -Heel protectors. -offload knee area. -Avoid shear or friction. -Assess and follow up with MD for any further changes of condition noted to skin. patient has extensive full thickness wounds at risk for further skin breakdown. Despite all nursing interventions and wound care being provided pressure ulcers failed to show good progression, sites remain as previously staged, Continue wound care as previously ordered. CECE CARD Jul 29, 2017 10:28
[2017-07-29 12:00] VITALS: BP 92/47
--- NOTE | 2017-07-29 12:05 | Infectious Diseases Prog Note ---
"Assessment/Plan Assessment/Plan antibiotics : minocycline, zosyn A 1. acenitobacter UTI 2. serratia | achromobacter pneumonia 3. leucocytosis resolved 4. respiratory failure 5. rectal VRE colonization 6. necrotic ulcers of legs 7. + blood cultures with coag neg staph likely contaminated 8. nasal MRSA colonization 9. increased creatinine 10. fever improving P 1. continue zosyn, minocycline 2. will follow up cultures Subjective ROS Limited/Unobtainable: Yes Allergies: Coded Allergies: No Known Allergies (Unverified , 01/07/17) Objective Vital Signs Last 24 Hour Vital Signs Date Time Temp Pulse Resp B/P (MAP) Pulse Ox O2 Delivery O2 Flow Rate FiO2 07/29/17 10:41 77 22 40 07/29/17 09:20 84 27 40 07/29/17 08:32 88 106/51 07/29/17 08:00 40 07/29/17 08:00 97.9 88 23 106/51 100 Mechanical Ventilator 40 07/29/17 08:00 88 07/29/17 07:23 87 22 40 07/29/17 05:16 82 24 40 07/29/17 04:00 40 07/29/17 04:00 84 07/29/17 04:00 97.2 86 24 132/60 100 Mechanical Ventilator 40 07/29/17 03:30 83 22 40 07/29/17 01:05 70 16 40 07/29/17 00:19 100.0 07/29/17 00:00 40 07/29/17 00:00 101.0 89 18 99/50 100 Mechanical Ventilator 40 07/29/17 00:00 90 07/28/17 22:48 97 20 40 07/28/17 20:51 74 102/48 07/28/17 20:50 74 20 40 07/28/17 20:00 40 07/28/17 20:00 98.4 81 18 102/48 100 Mechanical Ventilator 40 07/28/17 20:00 88 07/28/17 19:30 76 24 40 07/28/17 17:16 74 21 40 07/28/17 16:00 98.2 83 19 118/75 100 Mechanical Ventilator 40 07/28/17 15:24 73 07/28/17 15:24 40 07/28/17 15:03 71 24 40 07/28/17 13:29 63 18 40 07/28/17 12:50 73 92/42 Height (Feet): 6 Height (Inches): 0.00 Weight (Pounds): 180 HEENT: status post trach Respiratory/Chest: lungs clear Cardiovascular: normal rate, regular rhythm, no gallop/murmur Abdomen: soft, non tender, other - GT Extremities: no edema Microbiology Date/Time Source Procedure Growth Status 07/27/17 09:00 Blood Blood Culture - Preliminary NO GROWTH AFTER 24 HOURS Resulted 07/27/17 08:45 Blood Blood Culture - Preliminary NO GROWTH AFTER 24 HOURS Resulted VINICIO VAUGHAN Jul 29, 2017 12:05"
[2017-07-29 16:00] VITALS: BP 96/45
[2017-07-29 20:00] VITALS: BP 99/58
[2017-07-29] MEDS: Dakin's 0.25% (Half Strength) 16oz TOPIC SCH (21:13)
[2017-07-30] VITALS: BP 95/43
[2017-07-30] MEDS: Acetaminophen 650mg/20.3ml GT PRN ×2 (00:31→11:35)
--- NOTE | 2017-07-30 03:30 | Progress Note ---
DATE: 07/29/2017 CARDIOLOGY PROGRESS NOTE SUBJECTIVE: Status unchanged, defervescing. Remains on ventilator support. Multiple wounds requiring active treatment. Monitored rhythm sinus with demand paced. OBJECTIVE: VITAL SIGNS: Blood pressure of 99/58, pulse 82, respirations 18, and temperature 99.5. NECK: Thin trach secretions. LUNGS: Coarse breath sounds. HEART: Regular rhythm and rate. Normal S1, S2. ABDOMEN: Soft. EXTREMITIES: Trace edema. SKIN: Wounds are pictured. IMPRESSION: 1. Multiorgan system failure. 2. Peripheral artery disease with ischemic changes of the lower extremities. 3. Permanent pacemaker. 4. Paroxysmal atrial fibrillation. 5. Chronic diastolic congestive heart failure. 6. Ventilator-dependent respiratory failure. PLAN: 1. Await decision regarding hospice versus amputation. 2. Continued ventilator support. 3. Maintain beta-blockade and anti-platelet therapy. 4. Pacemaker is functioning appropriately. Stanislav Jain M.D. DR: AMADA JOB#: [id number] CC:
[2017-07-30 04:00] VITALS: BP 126/71
--- NOTE | 2017-07-30 04:00 | Progress Note ---
DATE: 07/30/2017 CARDIOLOGY PROGRESS NOTE SUBJECTIVE: Status unchanged. Not weanable. Remains unresponsive. Continues to have ischemic ulcers of his lower extremities. OBJECTIVE: VITAL SIGNS: Blood pressure 106/51, pulse 88, respirations 27, and afebrile. NECK: Thin trach secretions. LUNGS: Bilateral breath sounds with few rhonchi. HEART: Regular rhythm and rate. Normal S1, S2. ABDOMEN: Soft. G-tube intact. EXTREMITIES: Trace edema. Ischemic changes of the lower limb. DIAGNOSTIC DATA: Monitor reveals sinus with demand pacing. IMPRESSION: 1. Sepsis. 2. Ischemic lower extremities with gangrenous ulcers. 3. Hypertensive heart disease. 4. Permanent pacemaker. 5. Paroxysmal atrial fibrillation. 6. Chronic encephalopathy. 7. Ventilator-dependent respiratory failure. 8. Anemia multifactorial requiring transfusions. PLAN: The patient will continue to slowly deteriorate without amputations, however, his overall debility does not want a surgical intervention based on quality of life and the patient's is being offered hospice at this time. In the interim, the patient should be continued on beta-blockers and anti-platelet drugs with continued long-term ventilator support. Stanislav Jain M.D. DR: AMADA JOB#: [id number] CC:
[2017-07-30] MEDS: Piperacillin/Tazobactam 3.375 GM in D5W 55 ML IVPB SCH ×3 (05:58→21:34)
--- NOTE | 2017-07-30 07:39 | General Progress Note ---
Assessment/Plan Problem List: (1) Sepsis ICD Codes: A41.9 - Sepsis, unspecified organism SNOMED: 61353132 (2) Bacteremia ICD Codes: R78.81 - Bacteremia SNOMED: 0083884 (3) Pressure ulcer, heel ICD Codes: L89.609 - Pressure ulcer of unspecified heel, unspecified stage SNOMED: 547194755 (4) Pacemaker ICD Codes: Z95.0 - Presence of cardiac pacemaker SNOMED: 512240459, 403347369 (5) Abnormal laboratory test ICD Codes: R89.9 - Unspecified abnormal finding in specimens from other organs , systems and tissues SNOMED: 546975300 (6) Anemia ICD Codes: D64.9 - Anemia, unspecified SNOMED: 643549088 (7) Tracheostomy dependence ICD Codes: Z93.0 - Tracheostomy status; R65.20 - Severe sepsis without septic shock SNOMED: 458677949, 273853982 (8) Severe sepsis ICD Codes: A41.9 - Sepsis, unspecified organism; R65.20 - Severe sepsis without septic shock SNOMED: 67112495 Status: stable, deteriorating Assessment/Plan IV abx follow up cultures wound care wound eval appreciated refusing amputation vent resp rx gt feeds poor prognosis licensed master social worker to meet with re hospice Subjective ROS Limited/Unobtainable: No Constitutional: Reports: malaise, weakness HEENT: Reports: no symptoms Cardiovascular: Reports: no symptoms Respiratory: Reports: no symptoms Gastrointestinal/Abdominal: Reports: difficulty swallowing Genitourinary: Reports: no symptoms Neurologic/Psychiatric: Reports: pre-existing deficit Endocrine: Reports: no symptoms Hematologic/Lymphatic: Reports: anemia Allergies: Coded Allergies: No Known Allergies (Unverified , 01/07/17) All Systems: reviewed and negative except above Subjective no events. low grade fevers. on the vent. multiple wounds- not improved. refused surgery. family wants comfort care but is refusing. family states is the primary decision maker Objective Last 24 Hour Vital Signs Date Time Temp Pulse Resp B/P (MAP) Pulse Ox O2 Delivery O2 Flow Rate FiO2 07/30/17 06:47 84 19 40 07/30/17 04:56 78 22 40 07/30/17 04:00 80 07/30/17 04:00 40 07/30/17 04:00 98.1 79 23 126/71 100 Mechanical Ventilator 07/30/17 03:20 62 16 40 07/30/17 01:17 73 20 40 07/30/17 01:01 100.0 07/30/17 00:00 40 07/30/17 00:00 100.4 80 18 95/43 100 Mechanical Ventilator 07/30/17 00:00 87 07/29/17 22:53 71 19 40 07/29/17 21:02 72 18 40 07/29/17 21:00 72 99/58 07/29/17 20:00 40 07/29/17 20:00 89 07/29/17 20:00 99.5 82 18 99/58 100 Mechanical Ventilator 07/29/17 19:01 83 24 40 07/29/17 16:48 79 25 40 07/29/17 16:00 80 07/29/17 16:00 99.9 82 22 96/45 100 Mechanical Ventilator 40 07/29/17 16:00 40 07/29/17 15:18 77 21 40 07/29/17 13:19 80 25 40 07/29/17 12:00 40 07/29/17 12:00 79 07/29/17 12:00 99.1 76 20 92/47 100 Mechanical Ventilator 40 07/29/17 10:41 77 22 40 07/29/17 09:20 84 27 40 07/29/17 08:32 88 106/51 07/29/17 08:00 40 07/29/17 08:00 97.9 88 23 106/51 100 Mechanical Ventilator 40 07/29/17 08:00 88 Height (Feet): 6 Height (Inches): 0.00 Weight (Pounds): 180 General Appearance: WD/WN, lethargic, confused Neck: supple Cardiovascular: normal peripheral pulses, normal rate, regular rhythm Respiratory/Chest: chest wall non-tender, lungs clear, normal breath sounds Abdomen: normal bowel sounds, non tender, soft, no organomegaly Edema: no edema noted Arm (L), no edema noted Arm (R), no edema noted Leg (L), no edema noted Leg (R), no edema noted Pedal (L), no edema noted Pedal (R), no edema noted Generalized Neurologic: disoriented, unresponsive, aphasia Objective multiple wounds on hips,buttcoks and LE UOMOTO,WENDIE Jul 30, 2017 07:39
--- NOTE | 2017-07-30 07:56 | Pulmonology Progress Note ---
Assessment/Plan Assessment/Plan IMPRESSION Anemia acute on chronic renal failure PVD respiratory failure trach GT chronic encephalopathy diabetes PLAN vent as is for now no wean for now and no needed changes monitor for change suction as needed monitor labs for change and intervene monitor HH and monitor continue to follow and assist with pulmonary needs agree with hospice and terminal care if agrees prognosis poor for meaningful recovery would need surgery but not a candidate impression, plan, and exam edited and reviewed in detail care discussed with RN Subjective ROS Limited/Unobtainable: Yes Allergies: Coded Allergies: No Known Allergies (Unverified , 01/07/17) Subjective care noted vent reviewed and d/w RT await decision for hospice secretions able to clear orders noted and reviewed Objective Last 24 Hour Vital Signs Date Time Temp Pulse Resp B/P (MAP) Pulse Ox O2 Delivery O2 Flow Rate FiO2 07/30/17 06:47 84 19 40 07/30/17 04:56 78 22 40 07/30/17 04:00 80 07/30/17 04:00 40 07/30/17 04:00 98.1 79 23 126/71 100 Mechanical Ventilator 07/30/17 03:20 62 16 40 07/30/17 01:17 73 20 40 07/30/17 01:01 100.0 07/30/17 00:00 40 07/30/17 00:00 100.4 80 18 95/43 100 Mechanical Ventilator 07/30/17 00:00 87 07/29/17 22:53 71 19 40 07/29/17 21:02 72 18 40 07/29/17 21:00 72 99/58 07/29/17 20:00 40 07/29/17 20:00 89 07/29/17 20:00 99.5 82 18 99/58 100 Mechanical Ventilator 07/29/17 19:01 83 24 40 07/29/17 16:48 79 25 40 07/29/17 16:00 80 07/29/17 16:00 99.9 82 22 96/45 100 Mechanical Ventilator 40 07/29/17 16:00 40 07/29/17 15:18 77 21 40 07/29/17 13:19 80 25 40 07/29/17 12:00 40 07/29/17 12:00 79 07/29/17 12:00 99.1 76 20 92/47 100 Mechanical Ventilator 40 07/29/17 10:41 77 22 40 07/29/17 09:20 84 27 40 07/29/17 08:32 88 106/51 07/29/17 08:00 40 07/29/17 08:00 97.9 88 23 106/51 100 Mechanical Ventilator 40 07/29/17 08:00 88 Objective WDWN NAD trach reduced breath sounds bilaterally with occasional rhonchi [id number] without MRG NABS nontender no HSM; GT no CC contractures skin changes noted nonfocal Microbiology Date/Time Source Procedure Growth Status 07/27/17 09:00 Blood Blood Culture - Preliminary NO GROWTH AFTER 48 HOURS Resulted 07/27/17 08:45 Blood Blood Culture - Preliminary NO GROWTH AFTER 48 HOURS Resulted Current Medications Medications (Trade) Dose Ordered Sig/Subhash Route PRN Reason Start Time Stop Time Status Last Admin Dose Admin Acetaminophen (Tylenol) 650 mg Q4H PRN GT Temp > 100.5 07/22/17 16:15 08/20/17 21:29 07/28/17 23:49 Acetaminophen (Tylenol) 650 mg Q4H PRN GT MILD PAIN 1-3 07/22/17 16:15 08/21/17 08:59 07/30/17 00:31 Atorvastatin Calcium (Lipitor) 10 mg BEDTIME GT 07/21/17 22:30 08/20/17 22:29 07/29/17 21:11 Bisacodyl (Dulcolax) 10 mg DAILYPRN PRN RECTAL Constipation 2nd Line Agent 07/21/17 21:30 08/20/17 21:29 Clotrimazole (Lotrimin) 1 applic TWICE A DAY TOPIC 07/22/17 09:00 08/21/17 08:59 07/29/17 17:53 Finasteride (Proscar) 5 mg DAILY ORAL 07/22/17 09:00 08/21/17 08:59 07/29/17 08:31 Heparin Sodium (Porcine) (Heparin 5000 units/ml) 5,000 units EVERY 12 HOURS SUBQ 07/21/17 22:30 08/20/17 22:29 07/29/17 21:14 Lansoprazole (Prevacid) 30 mg DAILY GT 07/22/17 09:00 08/21/17 08:59 07/29/17 08:30 Magnesium Hydroxide (Mom) 30 ml DAILYPRN PRN GT CONSTIPATION 1ST LINE AGENT 07/21/17 21:30 08/20/17 21:29 Metoprolol Tartrate (Lopressor) 50 mg EVERY 12 HOURS GT 07/22/17 09:00 08/21/17 08:59 07/28/17 08:51 Minocycline HCl (Minocin) 100 mg Q12HR ORAL 07/27/17 10:00 08/03/17 09:59 07/29/17 21:12 Multivitamins (Multivitamins W/ Minerals 15ml Liquid) 15 ml DAILY GT 07/22/17 09:00 08/21/17 08:59 07/29/17 08:31 Non-Formulary Medication (Non-Formulary Med) 1 ea DAILY ORAL 07/22/17 09:00 08/21/17 08:59 UNV Piperacillin Sod/ Tazobactam Sod 3.375 gm/Dextrose 55 ml @ 13.75 mls/ hr Q8HR IVPB 07/21/17 23:00 08/01/17 22:59 07/30/17 05:58 Sodium Hypochlorite (Dakin's Half Strength) 1 applic BEDTIME TOPIC 07/22/17 21:00 08/22/17 08:59 07/29/17 21:13 REJI OJEDA Jul 30, 2017 07:56
[2017-07-30 08:00] VITALS: BP 123/68
[2017-07-30] MEDS: Metoprolol Tartrate 50mg tab GT SCH ×2 (08:49→21:24)
[2017-07-30] MEDS: Minocycline HCl 50mg cap ORAL SCH ×2 (08:50→21:24)
[2017-07-30] MEDS: Multivitamins W/Minerals 15 ML UDC GT SCH (08:50)
[2017-07-30] MEDS: Heparin 5000 units/ml inj SUBQ SCH ×2 (08:51→21:27)
--- NOTE | 2017-07-30 10:31 | Infectious Diseases Prog Note ---
"Assessment/Plan Assessment/Plan antibiotics : minocycline, zosyn A 1. acenitobacter UTI 2. serratia | achromobacter pneumonia 3. leucocytosis resolved 4. respiratory failure 5. rectal VRE colonization 6. necrotic ulcers of legs 7. + blood cultures with coag neg staph likely contaminated 8. nasal MRSA colonization 9. increased creatinine 10. fever improving P 1. continue zosyn, minocycline 2. will follow up cultures Subjective ROS Limited/Unobtainable: Yes Allergies: Coded Allergies: No Known Allergies (Unverified , 01/07/17) Objective Vital Signs Last 24 Hour Vital Signs Date Time Temp Pulse Resp B/P (MAP) Pulse Ox O2 Delivery O2 Flow Rate FiO2 07/30/17 08:58 78 22 40 07/30/17 08:49 91 123/68 07/30/17 08:01 40 07/30/17 08:00 84 07/30/17 08:00 98.6 91 20 123/68 100 Mechanical Ventilator 40 07/30/17 06:47 84 19 40 07/30/17 04:56 78 22 40 07/30/17 04:00 80 07/30/17 04:00 40 07/30/17 04:00 98.1 79 23 126/71 100 Mechanical Ventilator 07/30/17 03:20 62 16 40 07/30/17 01:17 73 20 40 07/30/17 01:01 100.0 07/30/17 00:00 40 07/30/17 00:00 100.4 80 18 95/43 100 Mechanical Ventilator 07/30/17 00:00 87 07/29/17 22:53 71 19 40 07/29/17 21:02 72 18 40 07/29/17 21:00 72 99/58 07/29/17 20:00 40 07/29/17 20:00 89 07/29/17 20:00 99.5 82 18 99/58 100 Mechanical Ventilator 07/29/17 19:01 83 24 40 07/29/17 16:48 79 25 40 07/29/17 16:00 80 07/29/17 16:00 99.9 82 22 96/45 100 Mechanical Ventilator 40 07/29/17 16:00 40 07/29/17 15:18 77 21 40 07/29/17 13:19 80 25 40 11/22/17 12:00 40 07/29/17 12:00 79 07/29/17 12:00 99.1 76 20 92/47 100 Mechanical Ventilator 40 07/29/17 10:41 77 22 40 Height (Feet): 6 Height (Inches): 0.00 Weight (Pounds): 180 HEENT: status post trach Respiratory/Chest: lungs clear Cardiovascular: normal rate, regular rhythm, no gallop/murmur Abdomen: soft, non tender, other - GT Extremities: no edema VINICIO VAUGHAN Jul 30, 2017 10:31"
[2017-07-30 12:00] VITALS: BP 103/55
[2017-07-30] MEDS ORDERED: NS 500ML ONE (15:46)
[2017-07-30 15:58] VITALS: BP 136/71
[2017-07-30 20:00] VITALS: BP 124/58
[2017-07-30] MEDS: Dakin's 0.25% (Half Strength) 16oz TOPIC SCH (21:23)
[2017-07-31] VITALS (7 sets, daily range): BP systolic 79–114; BP diastolic 41–60
[2017-07-31] MEDS: Acetaminophen 650mg/20.3ml GT PRN ×2 (00:12→22:26)
[2017-07-31] MEDS: Piperacillin/Tazobactam 3.375 GM in D5W 55 ML IVPB SCH ×3 (05:38→22:20)
[2017-07-31] MEDS: Metoprolol Tartrate 50mg tab GT SCH ×2 (09:00→21:00)
[2017-07-31] MEDS: Multivitamins W/Minerals 15 ML UDC GT SCH (09:00)
[2017-07-31] MEDS: Minocycline HCl 50mg cap ORAL SCH ×2 (09:01→22:13)
[2017-07-31] MEDS: Heparin 5000 units/ml inj SUBQ SCH ×2 (09:03→22:19)
--- NOTE | 2017-07-31 10:06 | Pulmonology Progress Note ---
Assessment/Plan Assessment/Plan IMPRESSION Anemia acute on chronic renal failure PVD respiratory failure trach GT chronic encephalopathy diabetes PLAN vent as is for now no wean for now and no needed changes monitor for change suction as needed monitor labs for change and intervene monitor HH and monitor continue to follow and assist with pulmonary needs agree with hospice and terminal care if agrees prognosis poor for meaningful recovery would need surgery but not a candidate impression, plan, and exam edited and reviewed in detail care discussed with RN Subjective ROS Limited/Unobtainable: Yes Allergies: Coded Allergies: No Known Allergies (Unverified , 01/07/17) Subjective care noted vent reviewed and d/w RT await decision for hospice secretions able to clear orders noted and reviewed Objective Last 24 Hour Vital Signs Date Time Temp Pulse Resp B/P (MAP) Pulse Ox O2 Delivery O2 Flow Rate FiO2 07/31/17 09:00 82 95/53 07/31/17 08:47 73 17 40 07/31/17 08:00 40 07/31/17 08:00 98.2 82 18 95/53 100 Mechanical Ventilator 40 07/31/17 06:45 68 19 40 07/31/17 06:02 86 22 40 07/31/17 04:24 108/56 07/31/17 04:00 74 07/31/17 04:00 40 07/31/17 03:54 97.9 72 19 79/41 98 Mechanical Ventilator 07/31/17 02:56 87 23 40 07/31/17 02:20 98.9 07/31/17 01:30 71 21 40 07/31/17 01:05 100.0 07/31/17 01:00 100.0 07/31/17 00:00 84 07/31/17 00:00 101.8 80 25 114/57 100 Mechanical Ventilator 40 07/30/17 22:50 84 20 40 07/30/17 21:24 91 124/58 07/30/17 20:42 91 21 40 07/30/17 20:00 95 07/30/17 20:00 99.7 90 24 124/58 100 Mechanical Ventilator 40 07/30/17 20:00 40 07/30/17 19:30 95 23 40 07/30/17 16:32 88 20 40 07/30/17 16:01 40 07/30/17 16:00 74 07/30/17 15:58 97.7 85 18 136/71 100 Mechanical Ventilator 40 07/30/17 15:17 74 16 40 07/30/17 12:42 73 18 40 07/30/17 12:05 100.5 07/30/17 12:01 40 07/30/17 12:00 101.5 80 25 103/55 100 Mechanical Ventilator 40 07/30/17 12:00 84 07/30/17 10:45 87 17 40 Objective WDWN NAD trach reduced breath sounds bilaterally with occasional rhonchi [id number] without MRG NABS nontender no HSM; GT no CC contractures skin changes noted nonfocal Current Medications Medications (Trade) Dose Ordered Sig/Subhash Route PRN Reason Start Time Stop Time Status Last Admin Dose Admin Acetaminophen (Tylenol) 650 mg Q4H PRN GT Temp > 100.5 07/22/17 16:15 08/20/17 21:29 07/30/17 11:35 Acetaminophen (Tylenol) 650 mg Q4H PRN GT MILD PAIN 1-3 07/22/17 16:15 08/21/17 08:59 07/31/17 00:12 Atorvastatin Calcium (Lipitor) 10 mg BEDTIME GT 07/21/17 22:30 08/20/17 22:29 07/30/17 21:23 Bisacodyl (Dulcolax) 10 mg DAILYPRN PRN RECTAL Constipation 2nd Line Agent 07/21/17 21:30 08/20/17 21:29 Clotrimazole (Lotrimin) 1 applic TWICE A DAY TOPIC 07/22/17 09:00 08/21/17 08:59 07/31/17 09:03 Finasteride (Proscar) 5 mg DAILY ORAL 07/22/17 09:00 08/21/17 08:59 07/31/17 09:00 Heparin Sodium (Porcine) (Heparin 5000 units/ml) 5,000 units EVERY 12 HOURS SUBQ 07/21/17 22:30 08/20/17 22:29 07/31/17 09:03 Lansoprazole (Prevacid) 30 mg DAILY GT 07/22/17 09:00 08/21/17 08:59 07/31/17 09:00 Magnesium Hydroxide (Mom) 30 ml DAILYPRN PRN GT CONSTIPATION 1ST LINE AGENT 07/21/17 21:30 08/20/17 21:29 Metoprolol Tartrate (Lopressor) 50 mg EVERY 12 HOURS GT 07/22/17 09:00 08/21/17 08:59 07/30/17 21:24 Minocycline HCl (Minocin) 100 mg Q12HR ORAL 07/27/17 10:00 08/03/17 09:59 07/31/17 09:01 Multivitamins (Multivitamins W/ Minerals 15ml Liquid) 15 ml DAILY GT 07/22/17 09:00 08/21/17 08:59 07/30/17 08:50 Non-Formulary Medication (Non-Formulary Med) 1 ea DAILY ORAL 07/22/17 09:00 08/21/17 08:59 UNV Piperacillin Sod/ Tazobactam Sod 3.375 gm/Dextrose 55 ml @ 13.75 mls/ hr Q8HR IVPB 07/21/17 23:00 08/01/17 22:59 07/31/17 05:38 Sodium Hypochlorite (Dakin's Half Strength) 1 applic BEDTIME TOPIC 07/22/17 21:00 08/22/17 08:59 07/30/17 21:23 REJI OJEDA Jul 31, 2017 10:06
[2017-07-31] MEDS ORDERED: Tubing IV Secondary IV ONE (10:12)
[2017-07-31] MEDS ORDERED: NS 500ML ONE (10:12)
--- NOTE | 2017-07-31 10:25 | General Progress Note ---
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 - Tracheostomy status; R65.20 - Severe sepsis without septic shock SNOMED: 352842626, 006284915 (8) Severe sepsis ICD Codes: A41.9 - Sepsis, unspecified organism; R65.20 - Severe sepsis without septic shock SNOMED: 74254207 Assessment/Plan IV abx follow up cultures wound care wound eval appreciated refusing amputation vent resp rx gt feeds poor prognosis family all in agreement with comfort care socially responsible investment adviser to arrange timing of withdrawl of care Subjective ROS Limited/Unobtainable: Yes Constitutional: Reports: malaise, weakness HEENT: Reports: no symptoms Cardiovascular: Reports: no symptoms Respiratory: Reports: cough, shortness of breath, sputum Gastrointestinal/Abdominal: Reports: difficulty swallowing Genitourinary: Reports: no symptoms Neurologic/Psychiatric: Reports: pre-existing deficit Endocrine: Reports: no symptoms Hematologic/Lymphatic: Reports: anemia Allergies: Coded Allergies: No Known Allergies (Unverified , 01/07/17) All Systems: reviewed and negative except above Subjective no events. low grade fevers. on the vent. multiple wounds- not improved. refused surgery. d/w dtr who has talked with - all in agreement to proceed with comfort care. family wants to be present at the time Objective Last 24 Hour Vital Signs Date Time Temp Pulse Resp B/P (MAP) Pulse Ox O2 Delivery O2 Flow Rate FiO2 07/31/17 09:00 82 95/53 07/31/17 08:47 73 17 40 07/31/17 08:00 40 07/31/17 08:00 98.2 82 18 95/53 100 Mechanical Ventilator 40 07/31/17 06:45 68 19 40 07/31/17 06:02 86 22 40 07/31/17 04:24 108/56 07/31/17 04:00 74 07/31/17 04:00 40 07/31/17 03:54 97.9 72 19 79/41 98 Mechanical Ventilator 07/31/17 02:56 87 23 40 07/31/17 02:20 98.9 07/31/17 01:30 71 21 40 07/31/17 01:05 100.0 07/31/17 01:00 100.0 07/31/17 00:00 84 07/31/17 00:00 101.8 80 25 114/57 100 Mechanical Ventilator 40 07/30/17 22:50 84 20 40 07/30/17 21:24 91 124/58 07/30/17 20:42 91 21 40 07/30/17 20:00 95 07/30/17 20:00 99.7 90 24 124/58 100 Mechanical Ventilator 40 07/30/17 20:00 40 07/30/17 19:30 95 23 40 07/30/17 16:32 88 20 40 07/30/17 16:01 40 07/30/17 16:00 74 07/30/17 15:58 97.7 85 18 136/71 100 Mechanical Ventilator 40 07/30/17 15:17 74 16 40 07/30/17 12:42 73 18 40 07/30/17 12:05 100.5 07/30/17 12:01 40 07/30/17 12:00 101.5 80 25 103/55 100 Mechanical Ventilator 40 07/30/17 12:00 84 07/30/17 10:45 87 17 40 Height (Feet): 6 Height (Inches): 0.00 Weight (Pounds): 180 General Appearance: WD/WN, lethargic Neck: supple Cardiovascular: regular rhythm Respiratory/Chest: lungs clear Abdomen: normal bowel sounds, non tender, soft, no organomegaly Edema: no edema noted Arm (L), no edema noted Arm (R), no edema noted Leg (L), no edema noted Leg (R), no edema noted Pedal (L), no edema noted Pedal (R), no edema noted Generalized Objective multiple wounds on hips,buttcoks and LE WENDIE CASTELLANOS Jul 31, 2017 10:25
--- NOTE | 2017-07-31 12:20 | Infectious Diseases Prog Note ---
"Assessment/Plan Assessment/Plan antibiotics : minocycline, zosyn A 1. acenitobacter UTI 2. serratia | achromobacter pneumonia 3. leucocytosis resolved 4. respiratory failure 5. rectal VRE colonization 6. necrotic ulcers of legs 7. + blood cultures with coag neg staph likely contaminated 8. nasal MRSA colonization 9. increased creatinine 10. fever improving P 1. continue zosyn, minocycline 2. will follow up cultures Subjective ROS Limited/Unobtainable: Yes Allergies: Coded Allergies: No Known Allergies (Unverified , 01/07/17) Objective Vital Signs Last 24 Hour Vital Signs Date Time Temp Pulse Resp B/P (MAP) Pulse Ox O2 Delivery O2 Flow Rate FiO2 07/31/17 12:00 99.3 74 20 100/60 100 Mechanical Ventilator 40 07/31/17 12:00 40 07/31/17 10:50 64 17 40 07/31/17 09:00 82 95/53 07/31/17 08:47 73 17 40 07/31/17 08:00 40 07/31/17 08:00 87 07/31/17 08:00 98.2 82 18 95/53 100 Mechanical Ventilator 40 07/31/17 06:45 68 19 40 07/31/17 06:02 86 22 40 07/31/17 04:24 108/56 07/31/17 04:00 74 07/31/17 04:00 40 07/31/17 03:54 97.9 72 19 79/41 98 Mechanical Ventilator 07/31/17 02:56 87 23 40 07/31/17 02:20 98.9 07/31/17 01:30 71 21 40 07/31/17 01:05 100.0 07/31/17 01:00 100.0 07/31/17 00:00 84 07/31/17 00:00 101.8 80 25 114/57 100 Mechanical Ventilator 40 07/30/17 22:50 84 20 40 07/30/17 21:24 91 124/58 07/30/17 20:42 91 21 40 07/30/17 20:00 95 07/30/17 20:00 99.7 90 24 124/58 100 Mechanical Ventilator 40 07/30/17 20:00 40 07/30/17 19:30 95 23 40 07/30/17 16:32 88 20 40 07/30/17 16:01 40 07/30/17 16:00 74 07/30/17 15:58 97.7 85 18 136/71 100 Mechanical Ventilator 40 07/30/17 15:17 74 16 40 07/30/17 12:42 73 18 40 Height (Feet): 6 Height (Inches): 0.00 Weight (Pounds): 180 HEENT: status post trach Respiratory/Chest: lungs clear Cardiovascular: normal rate, regular rhythm, no gallop/murmur Abdomen: soft, non tender, other - GT Extremities: no edema VINICIO VAUGHAN Jul 31, 2017 12:20"
[2017-07-31] MEDS: Dakin's 0.25% (Half Strength) 16oz TOPIC SCH (22:22)
[2017-08-01] VITALS (7 sets, daily range): BP systolic 96–118; BP diastolic 49–59
[2017-08-01] MEDS: Piperacillin/Tazobactam 3.375 GM in D5W 55 ML IVPB SCH ×3 (06:30→21:28)
--- NOTE | 2017-08-01 07:59 | Pulmonology Progress Note ---
Assessment/Plan Assessment/Plan IMPRESSION Anemia acute on chronic renal failure PVD respiratory failure trach GT chronic encephalopathy diabetes PLAN vent as is for now suction as needed continue to follow and assist with pulmonary needs agree with hospice and terminal care if agrees prognosis poor for meaningful recovery await terminal extubation impression, plan, and exam edited and reviewed in detail care discussed with RN Subjective ROS Limited/Unobtainable: Yes Allergies: Coded Allergies: No Known Allergies (Unverified , 01/07/17) Subjective care noted vent reviewed and d/w RT plan for withdrawal of care orders noted and reviewed Objective Last 24 Hour Vital Signs Date Time Temp Pulse Resp B/P (MAP) Pulse Ox O2 Delivery O2 Flow Rate FiO2 08/01/17 06:54 85 19 40 08/01/17 05:17 78 19 40 08/01/17 04:20 99.0 79 20 112/59 100 Mechanical Ventilator 40 08/01/17 04:00 72 08/01/17 04:00 40 08/01/17 02:47 77 17 40 08/01/17 01:06 75 16 40 08/01/17 00:00 99.7 69 20 103/57 100 Mechanical Ventilator 40 08/01/17 00:00 78 08/01/17 00:00 40 07/31/17 23:04 80 27 40 07/31/17 22:56 99.8 07/31/17 21:20 77 21 Mechanical Ventilator 40 07/31/17 21:20 77 21 40 07/31/17 21:00 83 100/57 07/31/17 20:44 80 07/31/17 20:00 80 07/31/17 20:00 40 07/31/17 20:00 101.8 82 20 100/57 100 Mechanical Ventilator 40 07/31/17 18:56 78 21 40 07/31/17 16:49 74 24 40 07/31/17 16:00 99.1 76 18 100/52 100 Mechanical Ventilator 40 07/31/17 16:00 40 07/31/17 16:00 76 07/31/17 15:13 64 17 40 07/31/17 13:02 70 22 40 07/31/17 12:00 73 07/31/17 12:00 99.3 74 20 100/60 100 Mechanical Ventilator 40 07/31/17 12:00 40 07/31/17 10:50 64 17 40 07/31/17 09:00 82 95/53 07/31/17 08:47 73 17 40 07/31/17 08:00 40 07/31/17 08:00 87 07/31/17 08:00 98.2 82 18 95/53 100 Mechanical Ventilator 40 Objective WDWN NAD trach reduced breath sounds bilaterally with occasional rhonchi [id number] without MRG NABS nontender no HSM; GT no CC contractures skin changes noted nonfocal Current Medications Medications (Trade) Dose Ordered Sig/Subhash Route PRN Reason Start Time Stop Time Status Last Admin Dose Admin Acetaminophen (Tylenol) 650 mg Q4H PRN GT Temp > 100.5 07/22/17 16:15 08/20/17 21:29 07/30/17 11:35 Acetaminophen (Tylenol) 650 mg Q4H PRN GT MILD PAIN 1-3 07/22/17 16:15 08/21/17 08:59 07/31/17 22:26 Atorvastatin Calcium (Lipitor) 10 mg BEDTIME GT 07/21/17 22:30 08/20/17 22:29 07/31/17 22:13 Bisacodyl (Dulcolax) 10 mg DAILYPRN PRN RECTAL Constipation 2nd Line Agent 07/21/17 21:30 08/20/17 21:29 Clotrimazole (Lotrimin) 1 applic TWICE A DAY TOPIC 07/22/17 09:00 08/21/17 08:59 07/31/17 17:33 Finasteride (Proscar) 5 mg DAILY ORAL 07/22/17 09:00 08/21/17 08:59 07/31/17 09:00 Heparin Sodium (Porcine) (Heparin 5000 units/ml) 5,000 units EVERY 12 HOURS SUBQ 07/21/17 22:30 08/20/17 22:29 07/31/17 22:19 Lansoprazole (Prevacid) 30 mg DAILY GT 07/22/17 09:00 08/21/17 08:59 07/31/17 09:00 Magnesium Hydroxide (Mom) 30 ml DAILYPRN PRN GT CONSTIPATION 1ST LINE AGENT 07/21/17 21:30 08/20/17 21:29 Metoprolol Tartrate (Lopressor) 50 mg EVERY 12 HOURS GT 07/22/17 09:00 08/21/17 08:59 07/30/17 21:24 Minocycline HCl (Minocin) 100 mg Q12HR ORAL 07/27/17 10:00 08/03/17 09:59 07/31/17 22:13 Multivitamins (Multivitamins W/ Minerals 15ml Liquid) 15 ml DAILY GT 07/22/17 09:00 08/21/17 08:59 07/30/17 08:50 Non-Formulary Medication (Non-Formulary Med) 1 ea DAILY ORAL 07/22/17 09:00 08/21/17 08:59 UNV Piperacillin Sod/ Tazobactam Sod 3.375 gm/Dextrose 55 ml @ 13.75 mls/ hr Q8HR IVPB 07/31/17 14:00 08/11/17 13:59 08/01/17 06:30 Sodium Hypochlorite (Dakin's Half Strength) 1 applic BEDTIME TOPIC 07/22/17 21:00 08/22/17 08:59 07/31/17 22:22 REJI OJEDA Aug 01, 2017 07:59
--- NOTE | 2017-08-01 08:47 | General Progress Note ---
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 - Tracheostomy status; R65.20 - Severe sepsis without septic shock SNOMED: 641777873, 270093351 (8) Severe sepsis ICD Codes: A41.9 - Sepsis, unspecified organism; R65.20 - Severe sepsis without septic shock SNOMED: 68624748 Status: stable, progressing Assessment/Plan terminal extubation- will ask social work to arrange timing as all family want to be present Subjective ROS Limited/Unobtainable: Yes Constitutional: Reports: malaise, weakness HEENT: Reports: no symptoms Cardiovascular: Reports: no symptoms Respiratory: Reports: cough Gastrointestinal/Abdominal: Reports: difficulty swallowing Genitourinary: Reports: no symptoms Neurologic/Psychiatric: Reports: pre-existing deficit Endocrine: Reports: no symptoms Hematologic/Lymphatic: Reports: no symptoms Allergies: Coded Allergies: No Known Allergies (Unverified , 01/07/17) All Systems: reviewed and negative except above Subjective family all in agreement with comfort care. [facility] unable to accept pt back due to isolation. on the vent. same. no events Objective Last 24 Hour Vital Signs Date Time Temp Pulse Resp B/P (MAP) Pulse Ox O2 Delivery O2 Flow Rate FiO2 08/01/17 06:54 85 19 40 08/01/17 05:17 78 19 40 08/01/17 04:20 99.0 79 20 112/59 100 Mechanical Ventilator 40 08/01/17 04:00 72 08/01/17 04:00 40 08/01/17 02:47 77 17 40 08/01/17 01:06 75 16 40 08/01/17 00:00 99.7 69 20 103/57 100 Mechanical Ventilator 40 08/01/17 00:00 78 08/01/17 00:00 40 07/31/17 23:04 80 27 40 07/31/17 22:56 99.8 07/31/17 21:20 77 21 Mechanical Ventilator 40 07/31/17 21:20 77 21 40 07/31/17 21:00 83 100/57 07/31/17 20:44 80 07/31/17 20:00 80 07/31/17 20:00 40 07/31/17 20:00 101.8 82 20 100/57 100 Mechanical Ventilator 40 07/31/17 18:56 78 21 40 07/31/17 16:49 74 24 40 07/31/17 16:00 99.1 76 18 100/52 100 Mechanical Ventilator 40 07/31/17 16:00 40 07/31/17 16:00 76 07/31/17 15:13 64 17 40 07/31/17 13:02 70 22 40 07/31/17 12:00 73 07/31/17 12:00 99.3 74 20 100/60 100 Mechanical Ventilator 40 07/31/17 12:00 40 07/31/17 10:50 64 17 40 07/31/17 09:00 82 95/53 07/31/17 08:47 73 17 40 Height (Feet): 6 Height (Inches): 0.00 Weight (Pounds): 180 General Appearance: WD/WN, alert Neck: supple Cardiovascular: regular rhythm Respiratory/Chest: normal breath sounds Abdomen: normal bowel sounds Neurologic: unresponsive Objective multiple wounds on hips,buttcoks and LE [id number] Aug 01, 2017 08:47
[2017-08-01] MEDS: Metoprolol Tartrate 50mg tab GT SCH ×2 (09:00→20:48)
[2017-08-01] MEDS: Multivitamins W/Minerals 15 ML UDC GT SCH (09:37)
[2017-08-01] MEDS: Minocycline HCl 50mg cap ORAL SCH ×2 (09:38→20:47)
[2017-08-01] MEDS: Heparin 5000 units/ml inj SUBQ SCH ×2 (09:42→20:52)
[2017-08-01] MEDS: Acetaminophen 650mg/20.3ml GT PRN (11:07)
[2017-08-01] MEDS: Dakin's 0.25% (Half Strength) 16oz TOPIC SCH (20:47)
[2017-08-02] VITALS: BP 110/58
[2017-08-02 04:00] VITALS: BP 116/52
[2017-08-02] MEDS: Piperacillin/Tazobactam 3.375 GM in D5W 55 ML IVPB SCH ×3 (05:57→21:40)
--- NOTE | 2017-08-02 07:42 | Pulmonology Progress Note ---
Assessment/Plan Assessment/Plan IMPRESSION Anemia acute on chronic renal failure PVD respiratory failure trach GT chronic encephalopathy diabetes PLAN vent as is for now suction as needed continue to follow and assist with pulmonary needs agree with hospice and terminal care - awaiting family prognosis poor for meaningful recovery await terminal extubation impression, plan, and exam edited and reviewed in detail care discussed with RN Subjective ROS Limited/Unobtainable: Yes Allergies: Coded Allergies: No Known Allergies (Unverified , 01/07/17) Subjective care noted vent reviewed and d/w RT plan for withdrawal of care noted orders noted and reviewed Objective Last 24 Hour Vital Signs Date Time Temp Pulse Resp B/P (MAP) Pulse Ox O2 Delivery O2 Flow Rate FiO2 08/02/17 06:52 85 21 40 08/02/17 05:20 72 23 40 08/02/17 04:00 40 08/02/17 04:00 99.2 80 20 116/52 100 Mechanical Ventilator 40 08/02/17 04:00 84 08/02/17 03:35 84 27 40 08/02/17 01:22 78 24 40 08/02/17 00:00 79 08/02/17 00:00 40 08/02/17 00:00 99.0 82 19 110/58 99 Mechanical Ventilator 40 08/01/17 23:40 65 20 40 08/01/17 21:23 63 24 40 08/01/17 20:48 83 118/58 08/01/17 20:00 40 08/01/17 20:00 80 08/01/17 20:00 99.1 83 18 118/58 100 Mechanical Ventilator 40 08/01/17 19:27 71 2 40 08/01/17 17:24 76 17 40 08/01/17 16:00 40 08/01/17 16:00 78 08/01/17 16:00 98.2 82 18 111/49 100 Mechanical Ventilator 40 08/01/17 14:53 74 16 40 08/01/17 12:39 75 17 40 08/01/17 12:10 40 08/01/17 12:09 100.2 82 18 96/54 99 Mechanical Ventilator 40 08/01/17 11:49 79 08/01/17 11:37 100.2 08/01/17 11:18 78 17 40 08/01/17 09:25 78 19 40 08/01/17 09:00 86 96/52 08/01/17 08:01 88 08/01/17 08:00 101.5 86 20 96/52 99 Mechanical Ventilator 40 08/01/17 08:00 40 Objective WDWN NAD trach reduced breath sounds bilaterally with occasional rhonchi [id number] without MRG NABS nontender no HSM; GT no CC contractures skin changes noted nonfocal Current Medications Medications (Trade) Dose Ordered Sig/Subhash Route PRN Reason Start Time Stop Time Status Last Admin Dose Admin Acetaminophen (Tylenol) 650 mg Q4H PRN GT Temp > 100.5 07/22/17 16:15 08/20/17 21:29 07/30/17 11:35 Acetaminophen (Tylenol) 650 mg Q4H PRN GT MILD PAIN 1-3 07/22/17 16:15 08/21/17 08:59 08/01/17 11:07 Atorvastatin Calcium (Lipitor) 10 mg BEDTIME GT 07/21/17 22:30 08/20/17 22:29 08/01/17 20:47 Bisacodyl (Dulcolax) 10 mg DAILYPRN PRN RECTAL Constipation 2nd Line Agent 07/21/17 21:30 08/20/17 21:29 Clotrimazole (Lotrimin) 1 applic TWICE A DAY TOPIC 07/22/17 09:00 08/21/17 08:59 08/01/17 19:35 Finasteride (Proscar) 5 mg DAILY ORAL 07/22/17 09:00 08/21/17 08:59 08/01/17 09:37 Heparin Sodium (Porcine) (Heparin 5000 units/ml) 5,000 units EVERY 12 HOURS SUBQ 07/21/17 22:30 08/20/17 22:29 08/01/17 20:52 Lansoprazole (Prevacid) 30 mg DAILY GT 07/22/17 09:00 08/21/17 08:59 08/01/17 09:37 Magnesium Hydroxide (Mom) 30 ml DAILYPRN PRN GT CONSTIPATION 1ST LINE AGENT 07/21/17 21:30 08/20/17 21:29 Metoprolol Tartrate (Lopressor) 50 mg EVERY 12 HOURS GT 07/22/17 09:00 08/21/17 08:59 08/01/17 20:48 Minocycline HCl (Minocin) 100 mg Q12HR ORAL 07/27/17 10:00 08/03/17 09:59 08/01/17 20:47 Multivitamins (Multivitamins W/ Minerals 15ml Liquid) 15 ml DAILY GT 07/22/17 09:00 08/21/17 08:59 08/01/17 09:37 Non-Formulary Medication (Non-Formulary Med) 1 ea DAILY ORAL 07/22/17 09:00 08/21/17 08:59 UNV Piperacillin Sod/ Tazobactam Sod 3.375 gm/Dextrose 55 ml @ 13.75 mls/ hr Q8HR IVPB 07/31/17 14:00 08/11/17 13:59 08/02/17 05:57 Sodium Hypochlorite (Dakin's Half Strength) 1 applic BEDTIME TOPIC 07/22/17 21:00 08/22/17 08:59 08/01/17 20:47 REJI OJEDA Aug 02, 2017 07:42
--- NOTE | 2017-08-02 07:58 | Infectious Diseases Prog Note ---
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 DM Anemia P: Continue Zosyn & Minocycline Subjective ROS Limited/Unobtainable: Yes Allergies: Coded Allergies: No Known Allergies (Unverified , 01/07/17) Objective Vital Signs Last 24 Hour Vital Signs Date Time Temp Pulse Resp B/P (MAP) Pulse Ox O2 Delivery O2 Flow Rate FiO2 08/02/17 06:52 85 21 40 08/02/17 05:20 72 23 40 08/02/17 04:00 40 08/02/17 04:00 99.2 80 20 116/52 100 Mechanical Ventilator 40 08/02/17 04:00 84 08/02/17 03:35 84 27 40 08/02/17 01:22 78 24 40 08/02/17 00:00 79 08/02/17 00:00 40 08/02/17 00:00 99.0 82 19 110/58 99 Mechanical Ventilator 40 08/01/17 23:40 65 20 40 08/01/17 21:23 63 24 40 08/01/17 20:48 83 118/58 08/01/17 20:00 40 08/01/17 20:00 80 08/01/17 20:00 99.1 83 18 118/58 100 Mechanical Ventilator 40 08/01/17 19:27 71 2 40 08/01/17 17:24 76 17 40 08/01/17 16:00 40 08/01/17 16:00 78 08/01/17 16:00 98.2 82 18 111/49 100 Mechanical Ventilator 40 08/01/17 14:53 74 16 40 08/01/17 12:39 75 17 40 08/01/17 12:10 40 08/01/17 12:09 100.2 82 18 96/54 99 Mechanical Ventilator 40 08/01/17 11:49 79 08/01/17 11:37 100.2 08/01/17 11:18 78 17 40 08/01/17 09:25 78 19 40 08/01/17 09:00 86 96/52 08/01/17 08:01 88 08/01/17 08:00 101.5 86 20 96/52 99 Mechanical Ventilator 40 08/01/17 08:00 40 Height (Feet): 6 Height (Inches): 0.00 Weight (Pounds): 180 General Appearance: no acute distress HEENT: status post trach Respiratory/Chest: lungs clear, other - on ventilator Cardiovascular: normal rate Abdomen: soft, non tender, other - GT feeding Extremities: no edema, other - contracted Skin: ulcers Neurologic/Psychiatric: unresponsiveness Current Medications Medications (Trade) Dose Ordered Sig/Subhash Route PRN Reason Start Time Stop Time Status Last Admin Dose Admin Acetaminophen (Tylenol) 650 mg Q4H PRN GT Temp > 100.5 07/22/17 16:15 08/20/17 21:29 07/30/17 11:35 Acetaminophen (Tylenol) 650 mg Q4H PRN GT MILD PAIN 1-3 07/22/17 16:15 08/21/17 08:59 08/01/17 11:07 Atorvastatin Calcium (Lipitor) 10 mg BEDTIME GT 07/21/17 22:30 08/20/17 22:29 08/01/17 20:47 Bisacodyl (Dulcolax) 10 mg DAILYPRN PRN RECTAL Constipation 2nd Line Agent 07/21/17 21:30 08/20/17 21:29 Clotrimazole (Lotrimin) 1 applic TWICE A DAY TOPIC 07/22/17 09:00 08/21/17 08:59 08/01/17 19:35 Finasteride (Proscar) 5 mg DAILY ORAL 07/22/17 09:00 08/21/17 08:59 08/01/17 09:37 Heparin Sodium (Porcine) (Heparin 5000 units/ml) 5,000 units EVERY 12 HOURS SUBQ 07/21/17 22:30 08/20/17 22:29 08/01/17 20:52 Lansoprazole (Prevacid) 30 mg DAILY GT 07/22/17 09:00 08/21/17 08:59 08/01/17 09:37 Magnesium Hydroxide (Mom) 30 ml DAILYPRN PRN GT CONSTIPATION 1ST LINE AGENT 07/21/17 21:30 08/20/17 21:29 Metoprolol Tartrate (Lopressor) 50 mg EVERY 12 HOURS GT 07/22/17 09:00 08/21/17 08:59 08/01/17 20:48 Minocycline HCl (Minocin) 100 mg Q12HR ORAL 07/27/17 10:00 08/03/17 09:59 08/01/17 20:47 Multivitamins (Multivitamins W/ Minerals 15ml Liquid) 15 ml DAILY GT 07/22/17 09:00 08/21/17 08:59 08/01/17 09:37 Non-Formulary Medication (Non-Formulary Med) 1 ea DAILY ORAL 07/22/17 09:00 08/21/17 08:59 UNV Piperacillin Sod/ Tazobactam Sod 3.375 gm/Dextrose 55 ml @ 13.75 mls/ hr Q8HR IVPB 07/31/17 14:00 08/11/17 13:59 08/02/17 05:57 Sodium Hypochlorite (Dakin's Half Strength) 1 applic BEDTIME TOPIC 07/22/17 21:00 08/22/17 08:59 08/01/17 20:47 ABDOULAYE ALFONSO Aug 02, 2017 07:58
[2017-08-02 08:00] VITALS: BP 122/57
[2017-08-02] MEDS: Minocycline HCl 50mg cap ORAL SCH ×2 (09:25→20:53)
[2017-08-02] MEDS: Multivitamins W/Minerals 15 ML UDC GT SCH (09:25)
[2017-08-02] MEDS: Heparin 5000 units/ml inj SUBQ SCH ×2 (09:29→20:58)
[2017-08-02] MEDS: Acetaminophen 650mg/20.3ml GT PRN (09:29)
[2017-08-02] MEDS: Metoprolol Tartrate 50mg tab GT SCH ×2 (09:30→20:52)
[2017-08-02 12:00] VITALS: BP 105/57
--- NOTE | 2017-08-02 13:04 | General Progress Note ---
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 - Tracheostomy status; R65.20 - Severe sepsis without septic shock SNOMED: 436038435, 779474368 (8) Severe sepsis ICD Codes: A41.9 - Sepsis, unspecified organism; R65.20 - Severe sepsis without septic shock SNOMED: 91769133 Status: stable, deteriorating Assessment/Plan terminal extubation- will ask social work to arrange timing as all family want to be present continue conservative rx pain rx vent gt feeds wound care Subjective ROS Limited/Unobtainable: No Constitutional: Reports: fever, malaise, weakness HEENT: Reports: no symptoms Cardiovascular: Reports: no symptoms Respiratory: Reports: cough Gastrointestinal/Abdominal: Reports: difficulty swallowing Genitourinary: Reports: no symptoms Neurologic/Psychiatric: Reports: pre-existing deficit Endocrine: Reports: no symptoms Hematologic/Lymphatic: Reports: anemia Allergies: Coded Allergies: No Known Allergies (Unverified , 01/07/17) All Systems: reviewed and negative except above Subjective family all in agreement with comfort care. [facility] unable [facility] pt [facility] due to isolation. on the vent. same. no events. +fevers. no distress. Objective Last 24 Hour Vital Signs Date Time Temp Pulse Resp B/P (MAP) Pulse Ox O2 Delivery O2 Flow Rate FiO2 08/02/17 12:00 40 08/02/17 12:00 100 08/02/17 11:13 72 21 40 08/02/17 09:59 100.0 08/02/17 09:30 76 122/57 08/02/17 09:15 76 21 40 08/02/17 08:00 100.9 78 24 122/57 98 Mechanical Ventilator 40 08/02/17 08:00 82 08/02/17 08:00 40 08/02/17 06:52 85 21 40 08/02/17 05:20 72 23 40 08/02/17 04:00 40 08/02/17 04:00 99.2 80 20 116/52 100 Mechanical Ventilator 40 08/02/17 04:00 84 08/02/17 03:35 84 27 40 08/02/17 01:22 78 24 40 08/02/17 00:00 79 08/02/17 00:00 40 08/02/17 00:00 99.0 82 19 110/58 99 Mechanical Ventilator 40 08/01/17 23:40 65 20 40 08/01/17 21:23 63 24 40 08/01/17 20:48 83 118/58 08/01/17 20:00 40 08/01/17 20:00 80 08/01/17 20:00 99.1 83 18 118/58 100 Mechanical Ventilator 40 08/01/17 19:27 71 2 40 08/01/17 17:24 76 17 40 08/01/17 16:00 40 08/01/17 16:00 78 08/01/17 16:00 98.2 82 18 111/49 100 Mechanical Ventilator 40 08/01/17 14:53 74 16 40 Intake and Output 08/02/17 08/03/17 19:00 07:00 Intake Total 260 ml Balance 260 ml Intake Free Water 50 ml Tube Feeding 150 ml Other 60 ml Height (Feet): 6 Height (Inches): 0.00 Weight (Pounds): 180 Objective General Appearance: WD/WN, alert Neck: supple Cardiovascular: regular rhythm Respiratory/Chest: normal breath sounds Abdomen: normal bowel sounds Neurologic: unresponsive multiple wounds on hips,buttcoks and LE WENDIE CASTELLANOS Aug 02, 2017 13:04
[2017-08-02] MEDS ORDERED: Morphine Sulfate 2mg/ml Inj IVP PRN (13:15)
[2017-08-02 16:00] VITALS: BP 123/58
[2017-08-02] MEDS ORDERED: Tubing IV Secondary IV ONE (16:01)
[2017-08-02] MEDS ORDERED: NS 500ML ONE (16:01)
[2017-08-02 20:00] VITALS: BP 125/68
[2017-08-02] MEDS: Dakin's 0.25% (Half Strength) 16oz TOPIC SCH (20:59)
[2017-08-03] VITALS: BP 107/56
[2017-08-03 04:00] VITALS: BP 110/55
[2017-08-03] MEDS: Piperacillin/Tazobactam 3.375 GM in D5W 55 ML IVPB SCH ×3 (06:11→21:17)
--- NOTE | 2017-08-03 07:52 | General Progress Note ---
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 - Tracheostomy status; R65.20 - Severe sepsis without septic shock SNOMED: 665525834, 404595180 (8) Severe sepsis ICD Codes: A41.9 - Sepsis, unspecified organism; R65.20 - Severe sepsis without septic shock SNOMED: 44814499 Assessment/Plan terminal extubation- will ask social work to arrange timing as all family want to be present continue conservative rx pain rx vent gt feeds wound care Subjective ROS Limited/Unobtainable: Yes Constitutional: Reports: fever, malaise, weakness HEENT: Reports: no symptoms Cardiovascular: Reports: no symptoms Respiratory: Reports: no symptoms Gastrointestinal/Abdominal: Reports: difficulty swallowing Genitourinary: Reports: no symptoms Neurologic/Psychiatric: Reports: pre-existing deficit Endocrine: Reports: no symptoms Hematologic/Lymphatic: Reports: anemia Allergies: Coded Allergies: No Known Allergies (Unverified , 01/07/17) All Systems: reviewed and negative except above Subjective family all in agreement with comfort care. [facility] unable [facility] due to isolation. on the vent. same. no events. +fevers. no distress. Objective Last 24 Hour Vital Signs Date Time Temp Pulse Resp B/P (MAP) Pulse Ox O2 Delivery O2 Flow Rate FiO2 08/03/17 07:03 76 20 40 08/03/17 05:30 75 19 40 08/03/17 04:00 40 08/03/17 04:00 98.0 75 20 110/55 98 Mechanical Ventilator 40 08/03/17 04:00 83 08/03/17 03:09 72 20 40 08/03/17 00:44 75 20 40 08/03/17 00:00 97.9 70 18 107/56 100 Mechanical Ventilator 40 08/03/17 00:00 70 08/02/17 23:30 70 21 40 08/02/17 21:30 62 19 40 08/02/17 20:52 79 123/58 08/02/17 20:00 98.2 80 20 125/68 100 Mechanical Ventilator 40 08/02/17 20:00 79 08/02/17 20:00 40 08/02/17 19:30 79 19 40 08/02/17 17:25 74 16 40 08/02/17 16:00 98.2 68 20 123/58 100 Mechanical Ventilator 40 08/02/17 16:00 40 08/02/17 16:00 73 08/02/17 15:21 66 16 40 08/02/17 13:20 72 16 40 08/02/17 12:00 40 08/02/17 12:00 99.3 62 20 105/57 100 Mechanical Ventilator 40 08/02/17 12:00 100 08/02/17 11:13 72 21 40 08/02/17 09:59 100.0 08/02/17 09:30 76 122/57 08/02/17 09:15 76 21 40 08/02/17 08:00 100.9 78 24 122/57 98 Mechanical Ventilator 40 08/02/17 08:00 82 08/02/17 08:00 40 Height (Feet): 6 Height (Inches): 0.00 Weight (Pounds): 180 Objective General Appearance: WD/WN, alert Neck: supple Cardiovascular: regular rhythm Respiratory/Chest: normal breath sounds Abdomen: normal bowel sounds Neurologic: unresponsive multiple wounds on hips,buttcoks and LE UOMOTO,WENDIE Aug 03, 2017 07:52
[2017-08-03 08:00] VITALS: BP 109/50
--- NOTE | 2017-08-03 08:06 | Pulmonology Progress Note ---
Assessment/Plan Assessment/Plan IMPRESSION Anemia acute on chronic renal failure PVD respiratory failure trach GT chronic encephalopathy diabetes PLAN vent as is for now suction as needed continue to follow and assist with pulmonary needs agree with hospice and terminal care - awaiting family prognosis poor for meaningful recovery await terminal extubation impression, plan, and exam edited and reviewed in detail care discussed with RN Subjective ROS Limited/Unobtainable: Yes Allergies: Coded Allergies: No Known Allergies (Unverified , 01/07/17) Subjective care noted vent reviewed and events monitored plan for withdrawal of care noted orders noted and reviewed Objective Last 24 Hour Vital Signs Date Time Temp Pulse Resp B/P (MAP) Pulse Ox O2 Delivery O2 Flow Rate FiO2 08/03/17 07:03 76 20 40 08/03/17 05:30 75 19 40 08/03/17 04:00 40 08/03/17 04:00 98.0 75 20 110/55 98 Mechanical Ventilator 40 08/03/17 04:00 83 08/03/17 03:09 72 20 40 08/03/17 00:44 75 20 40 08/03/17 00:00 97.9 70 18 107/56 100 Mechanical Ventilator 40 08/03/17 00:00 70 08/02/17 23:30 70 21 40 08/02/17 21:30 62 19 40 08/02/17 20:52 79 123/58 08/02/17 20:00 98.2 80 20 125/68 100 Mechanical Ventilator 40 08/02/17 20:00 79 08/02/17 20:00 40 08/02/17 19:30 79 19 40 08/02/17 17:25 74 16 40 08/02/17 16:00 98.2 68 20 123/58 100 Mechanical Ventilator 40 08/02/17 16:00 40 08/02/17 16:00 73 08/02/17 15:21 66 16 40 08/02/17 13:20 72 16 40 08/02/17 12:00 40 08/02/17 12:00 99.3 62 20 105/57 100 Mechanical Ventilator 40 08/02/17 12:00 100 08/02/17 11:13 72 21 40 08/02/17 09:59 100.0 08/02/17 09:30 76 122/57 08/02/17 09:15 76 21 40 Objective WDWN NAD trach reduced breath sounds bilaterally with occasional rhonchi [id number] without MRG NABS nontender no HSM; GT no CC contractures skin changes noted nonfocal Current Medications Medications (Trade) Dose Ordered Sig/Subhash Route PRN Reason Start Time Stop Time Status Last Admin Dose Admin Acetaminophen (Tylenol) 650 mg Q4H PRN GT Temp > 100.5 07/22/17 16:15 08/20/17 21:29 07/30/17 11:35 Acetaminophen (Tylenol) 650 mg Q4H PRN GT MILD PAIN 1-3 07/22/17 16:15 08/21/17 08:59 08/02/17 09:29 Atorvastatin Calcium (Lipitor) 10 mg BEDTIME GT 07/21/17 22:30 08/20/17 22:29 08/02/17 20:53 Bisacodyl (Dulcolax) 10 mg DAILYPRN PRN RECTAL Constipation 2nd Line Agent 07/21/17 21:30 08/20/17 21:29 Clotrimazole (Lotrimin) 1 applic TWICE A DAY TOPIC 07/22/17 09:00 08/21/17 08:59 08/02/17 18:27 Finasteride (Proscar) 5 mg DAILY ORAL 07/22/17 09:00 08/21/17 08:59 08/02/17 09:25 Heparin Sodium (Porcine) (Heparin 5000 units/ml) 5,000 units EVERY 12 HOURS SUBQ 07/21/17 22:30 08/20/17 22:29 08/02/17 20:58 Lansoprazole (Prevacid) 30 mg DAILY GT 07/22/17 09:00 08/21/17 08:59 08/02/17 09:25 Magnesium Hydroxide (Mom) 30 ml DAILYPRN PRN GT CONSTIPATION 1ST LINE AGENT 07/21/17 21:30 08/20/17 21:29 Metoprolol Tartrate (Lopressor) 50 mg EVERY 12 HOURS GT 07/22/17 09:00 08/21/17 08:59 08/02/17 20:52 Minocycline HCl (Minocin) 100 mg Q12HR ORAL 07/27/17 10:00 08/03/17 09:59 08/02/17 20:53 Morphine Sulfate (Morphine Sulfate) 2 mg Q4H PRN IVP For Pain 08/02/17 13:15 08/09/17 13:14 Multivitamins (Multivitamins W/ Minerals 15ml Liquid) 15 ml DAILY GT 07/22/17 09:00 08/21/17 08:59 08/02/17 09:25 Non-Formulary Medication (Non-Formulary Med) 1 ea DAILY ORAL 07/22/17 09:00 08/21/17 08:59 UNV Piperacillin Sod/ Tazobactam Sod 3.375 gm/Dextrose 55 ml @ 13.75 mls/ hr Q8HR IVPB 07/31/17 14:00 08/11/17 13:59 08/03/17 06:11 Sodium Hypochlorite (Dakin's Half Strength) 1 applic BEDTIME TOPIC 07/22/17 21:00 08/22/17 08:59 08/02/17 20:59 REJI OJEDA Aug 03, 2017 08:05
[2017-08-03] MEDS: Minocycline HCl 50mg cap ORAL SCH (08:16)
[2017-08-03] MEDS: Multivitamins W/Minerals 15 ML UDC GT SCH (08:16)
[2017-08-03] MEDS: Heparin 5000 units/ml inj SUBQ SCH ×2 (08:19→21:20)
[2017-08-03] MEDS: Metoprolol Tartrate 50mg tab GT SCH ×2 (08:20→21:17)
[2017-08-03 12:00] VITALS: BP 106/57
--- NOTE | 2017-08-03 12:08 | Infectious Diseases Prog Note ---
"Assessment/Plan Assessment/Plan antibiotics : minocycline, zosyn A 1. acenitobacter UTI s/p rx 2. serratia | achromobacter pneumonia 3. leucocytosis resolved 4. respiratory failure 5. rectal VRE colonization 6. necrotic ulcers of legs 7. + blood cultures with coag neg staph likely contaminated 8. nasal MRSA colonization 9. increased creatinine P 1. continue zosyn 2. dc minocycline 2. will follow up cultures Subjective ROS Limited/Unobtainable: Yes Allergies: Coded Allergies: No Known Allergies (Unverified , 01/07/17) Objective Vital Signs Last 24 Hour Vital Signs Date Time Temp Pulse Resp B/P (MAP) Pulse Ox O2 Delivery O2 Flow Rate FiO2 08/03/17 11:14 76 20 40 08/03/17 08:32 69 20 40 08/03/17 08:20 80 109/50 08/03/17 08:00 40 08/03/17 08:00 98.8 85 20 109/50 100 Mechanical Ventilator 40 08/03/17 08:00 76 08/03/17 07:03 76 20 40 08/03/17 05:30 75 19 40 08/03/17 04:00 40 08/03/17 04:00 98.0 75 20 110/55 98 Mechanical Ventilator 40 08/03/17 04:00 83 08/03/17 03:09 72 20 40 08/03/17 00:44 75 20 40 08/03/17 00:00 97.9 70 18 107/56 100 Mechanical Ventilator 40 08/03/17 00:00 70 08/02/17 23:30 70 21 40 08/02/17 21:30 62 19 40 08/02/17 20:52 79 123/58 08/02/17 20:00 98.2 80 20 125/68 100 Mechanical Ventilator 40 08/02/17 20:00 79 08/02/17 20:00 40 08/02/17 19:30 79 19 40 08/02/17 17:25 74 16 40 08/02/17 16:00 98.2 68 20 123/58 100 Mechanical Ventilator 40 08/02/17 16:00 40 08/02/17 16:00 73 08/02/17 15:21 66 16 40 08/02/17 13:20 72 16 40 Height (Feet): 6 Height (Inches): 0.00 Weight (Pounds): 180 HEENT: status post trach Respiratory/Chest: lungs clear Cardiovascular: normal rate, regular rhythm, no gallop/murmur Abdomen: soft, non tender, other - GT Extremities: no edema VINICIO VAUGHAN Aug 03, 2017 12:08"
[2017-08-03 16:00] VITALS: BP 138/71
[2017-08-03 20:00] VITALS: BP 127/65
[2017-08-03] MEDS: Acetaminophen 650mg/20.3ml GT PRN (21:17)
[2017-08-03] MEDS: Dakin's 0.25% (Half Strength) 16oz TOPIC SCH (21:19)
[2017-08-04] VITALS: BP 122/69
[2017-08-04 04:00] VITALS: BP 126/79
[2017-08-04] MEDS: Piperacillin/Tazobactam 3.375 GM in D5W 55 ML IVPB SCH (05:14)
[2017-08-04 08:00] VITALS: BP 129/60
--- NOTE | 2017-08-04 08:04 | Pulmonology Progress Note ---
Assessment/Plan Assessment/Plan IMPRESSION Anemia acute on chronic renal failure PVD respiratory failure trach GT chronic encephalopathy diabetes PLAN vent as is for now suction as needed continue to follow and assist with pulmonary needs agree with hospice and terminal care - awaiting family prognosis poor for meaningful recovery await terminal extubation impression, plan, and exam edited and reviewed in detail care discussed with RN Subjective ROS Limited/Unobtainable: Yes Allergies: Coded Allergies: No Known Allergies (Unverified , 01/07/17) Subjective care noted vent reviewed and events monitored plan for withdrawal of care noted orders noted and reviewed Objective Last 24 Hour Vital Signs Date Time Temp Pulse Resp B/P (MAP) Pulse Ox O2 Delivery O2 Flow Rate FiO2 08/04/17 06:54 66 21 40 08/04/17 05:01 81 23 40 08/04/17 04:00 98.7 80 20 126/79 100 Mechanical Ventilator 40 08/04/17 04:00 80 08/04/17 04:00 40 08/04/17 04:00 40 08/04/17 03:30 79 20 40 08/04/17 01:30 64 25 40 08/04/17 00:00 40 08/04/17 00:00 67 08/04/17 00:00 98.8 82 20 122/69 100 Mechanical Ventilator 40 08/03/17 23:29 68 22 40 08/03/17 21:47 98.9 08/03/17 21:47 98.9 08/03/17 21:30 67 20 40 08/03/17 21:17 78 127/65 08/03/17 20:00 40 08/03/17 20:00 78 08/03/17 20:00 100.5 78 25 127/65 100 Mechanical Ventilator 40 08/03/17 19:29 92 20 40 08/03/17 16:46 102 22 40 08/03/17 16:00 99.2 94 26 138/71 97 Mechanical Ventilator 40 08/03/17 16:00 40 08/03/17 16:00 86 08/03/17 14:57 84 20 40 08/03/17 12:32 83 20 40 08/03/17 12:00 40 08/03/17 12:00 99.3 79 18 106/57 100 Mechanical Ventilator 40 08/03/17 12:00 79 08/03/17 11:14 76 20 40 08/03/17 08:32 69 20 40 08/03/17 08:20 80 109/50 Objective WDWN NAD trach reduced breath sounds bilaterally with occasional rhonchi [id number] without MRG NABS nontender no HSM; GT no CC contractures skin changes noted nonfocal Current Medications Medications (Trade) Dose Ordered Sig/Subhash Route PRN Reason Start Time Stop Time Status Last Admin Dose Admin Acetaminophen (Tylenol) 650 mg Q4H PRN GT Temp > 100.5 07/22/17 16:15 08/20/17 21:29 08/03/17 21:17 Acetaminophen (Tylenol) 650 mg Q4H PRN GT MILD PAIN 1-3 07/22/17 16:15 08/21/17 08:59 08/02/17 09:29 Atorvastatin Calcium (Lipitor) 10 mg BEDTIME GT 07/21/17 22:30 08/20/17 22:29 08/03/17 21:17 Bisacodyl (Dulcolax) 10 mg DAILYPRN PRN RECTAL Constipation 2nd Line Agent 07/21/17 21:30 08/20/17 21:29 Clotrimazole (Lotrimin) 1 applic TWICE A DAY TOPIC 07/22/17 09:00 08/21/17 08:59 08/03/17 17:16 Finasteride (Proscar) 5 mg DAILY ORAL 07/22/17 09:00 08/21/17 08:59 08/03/17 08:16 Heparin Sodium (Porcine) (Heparin 5000 units/ml) 5,000 units EVERY 12 HOURS SUBQ 07/21/17 22:30 08/20/17 22:29 08/03/17 21:20 Lansoprazole (Prevacid) 30 mg DAILY GT 07/22/17 09:00 08/21/17 08:59 08/03/17 08:16 Magnesium Hydroxide (Mom) 30 ml DAILYPRN PRN GT CONSTIPATION 1ST LINE AGENT 07/21/17 21:30 08/20/17 21:29 Metoprolol Tartrate (Lopressor) 50 mg EVERY 12 HOURS GT 07/22/17 09:00 08/21/17 08:59 08/03/17 21:17 Morphine Sulfate (Morphine Sulfate) 2 mg Q4H PRN IVP For Pain 08/02/17 13:15 08/09/17 13:14 Multivitamins (Multivitamins W/ Minerals 15ml Liquid) 15 ml DAILY GT 07/22/17 09:00 08/21/17 08:59 08/03/17 08:16 Non-Formulary Medication (Non-Formulary Med) 1 ea DAILY ORAL 07/22/17 09:00 08/21/17 08:59 UNV Piperacillin Sod/ Tazobactam Sod 3.375 gm/Dextrose 55 ml @ 13.75 mls/ hr Q8HR IVPB 07/31/17 14:00 08/11/17 13:59 08/04/17 05:14 Sodium Hypochlorite (Dakin's Half Strength) 1 applic BEDTIME TOPIC 07/22/17 21:00 08/22/17 08:59 08/03/17 21:19 REJI OJEDA Aug 04, 2017 08:04
[2017-08-04] MEDS: Metoprolol Tartrate 50mg tab GT SCH ×2 (08:10→21:00)
[2017-08-04] MEDS: Multivitamins W/Minerals 15 ML UDC GT SCH (08:10)
[2017-08-04] MEDS: Heparin 5000 units/ml inj SUBQ SCH ×2 (08:11→21:00)
[2017-08-04] MEDS ORDERED: Morphine Sulfate 4mg/ml Inj IVP PRN (09:45)
--- NOTE | 2017-08-04 09:46 | General Progress Note ---
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 - Tracheostomy status; R65.20 - Severe sepsis without septic shock SNOMED: 983425566, 185876129 (8) Severe sepsis ICD Codes: A41.9 - Sepsis, unspecified organism; R65.20 - Severe sepsis without septic shock SNOMED: 57210280 Status: not improved Assessment/Plan terminal extubation tonite- will remove from vent morphine prn continue conservative rx pain rx vent gt feeds wound care Subjective ROS Limited/Unobtainable: Yes Constitutional: Reports: malaise, weakness HEENT: Reports: no symptoms Cardiovascular: Reports: no symptoms Respiratory: Reports: no symptoms Gastrointestinal/Abdominal: Reports: difficulty swallowing Genitourinary: Reports: no symptoms Neurologic/Psychiatric: Reports: pre-existing deficit Endocrine: Reports: no symptoms Hematologic/Lymphatic: Reports: anemia Allergies: Coded Allergies: No Known Allergies (Unverified , 01/07/17) All Systems: reviewed and negative except above Subjective family all in agreement with comfort care. [facility] unable to [facility] pt [facility] due to isolation. on the vent. same. no events. +fevers. no distress. Objective Last 24 Hour Vital Signs Date Time Temp Pulse Resp B/P (MAP) Pulse Ox O2 Delivery O2 Flow Rate FiO2 08/04/17 09:01 65 17 40 08/04/17 08:10 76 129/60 08/04/17 08:00 73 08/04/17 06:54 66 21 40 08/04/17 05:01 81 23 40 08/04/17 04:00 98.7 80 20 126/79 100 Mechanical Ventilator 40 11/28/17 04:00 80 08/04/17 04:00 40 08/04/17 04:00 40 08/04/17 03:30 79 20 40 08/04/17 01:30 64 25 40 08/04/17 00:00 40 08/04/17 00:00 67 08/04/17 00:00 98.8 82 20 122/69 100 Mechanical Ventilator 40 08/03/17 23:29 68 22 40 08/03/17 21:47 98.9 08/03/17 21:47 98.9 08/03/17 21:30 67 20 40 08/03/17 21:17 78 127/65 08/03/17 20:00 40 08/03/17 20:00 78 08/03/17 20:00 100.5 78 25 127/65 100 Mechanical Ventilator 40 08/03/17 19:29 92 20 40 08/03/17 16:46 102 22 40 08/03/17 16:00 99.2 94 26 138/71 97 Mechanical Ventilator 40 08/03/17 16:00 40 08/03/17 16:00 86 08/03/17 14:57 84 20 40 08/03/17 12:32 83 20 40 08/03/17 12:00 40 08/03/17 12:00 99.3 79 18 106/57 100 Mechanical Ventilator 40 08/03/17 12:00 79 08/03/17 11:14 76 20 40 Height (Feet): 6 Height (Inches): 0.00 Weight (Pounds): 180 Objective General Appearance: WD/WN, alert Neck: supple Cardiovascular: regular rhythm Respiratory/Chest: normal breath sounds Abdomen: normal bowel sounds Neurologic: unresponsive multiple wounds on hips,buttcoks and LE WENDIE CASTELLANOS Aug 04, 2017 09:46
[2017-08-04] MEDS ORDERED: Morphine Sulfate 2mg/ml Inj IVP PRN (10:00)
--- NOTE | 2017-08-04 10:20 | Infectious Diseases Prog Note ---
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 DM Anemia P: Patient will be terminally extubated tonight discontinue Zosyn case was D/W primary MD Subjective ROS Limited/Unobtainable: Yes Allergies: Coded Allergies: No Known Allergies (Unverified , 01/07/17) Objective Vital Signs Last 24 Hour Vital Signs Date Time Temp Pulse Resp B/P (MAP) Pulse Ox O2 Delivery O2 Flow Rate FiO2 08/04/17 09:01 65 17 40 08/04/17 08:10 76 129/60 08/04/17 08:00 73 08/04/17 08:00 98.8 76 18 129/60 100 Mechanical Ventilator 40 08/04/17 08:00 40 08/04/17 06:54 66 21 40 08/04/17 05:01 81 23 40 08/04/17 04:00 98.7 80 20 126/79 100 Mechanical Ventilator 40 08/04/17 04:00 80 08/04/17 04:00 40 08/04/17 04:00 40 08/04/17 03:30 79 20 40 08/04/17 01:30 64 25 40 08/04/17 00:00 40 08/04/17 00:00 67 08/04/17 00:00 98.8 82 20 122/69 100 Mechanical Ventilator 40 08/03/17 23:29 68 22 40 08/03/17 21:47 98.9 08/03/17 21:47 98.9 08/03/17 21:30 67 20 40 08/03/17 21:17 78 127/65 08/03/17 20:00 40 08/03/17 20:00 78 08/03/17 20:00 100.5 78 25 127/65 100 Mechanical Ventilator 40 08/03/17 19:29 92 20 40 08/03/17 16:46 102 22 40 08/03/17 16:00 99.2 94 26 138/71 97 Mechanical Ventilator 40 08/03/17 16:00 40 08/03/17 16:00 86 08/03/17 14:57 84 20 40 08/03/17 12:32 83 20 40 08/03/17 12:00 40 08/03/17 12:00 99.3 79 18 106/57 100 Mechanical Ventilator 40 08/03/17 12:00 79 11/27/17 11:14 76 20 40 Height (Feet): 6 Height (Inches): 0.00 Weight (Pounds): 180 General Appearance: no acute distress HEENT: mucous membranes moist, status post trach Respiratory/Chest: rhonchi - bilaterally, other - on ventilator Abdomen: soft, non tender, other Extremities: no edema, other - contracted Skin: ulcers Neurologic/Psychiatric: unresponsiveness Current Medications Medications (Trade) Dose Ordered Sig/Subhash Route PRN Reason Start Time Stop Time Status Last Admin Dose Admin Acetaminophen (Tylenol) 650 mg Q4H PRN GT Temp > 100.5 07/22/17 16:15 08/20/17 21:29 08/03/17 21:17 Acetaminophen (Tylenol) 650 mg Q4H PRN GT MILD PAIN 1-3 07/22/17 16:15 08/21/17 08:59 08/02/17 09:29 Atorvastatin Calcium (Lipitor) 10 mg BEDTIME GT 07/21/17 22:30 08/20/17 22:29 08/03/17 21:17 Bisacodyl (Dulcolax) 10 mg DAILYPRN PRN RECTAL Constipation 2nd Line Agent 07/21/17 21:30 08/20/17 21:29 Clotrimazole (Lotrimin) 1 applic TWICE A DAY TOPIC 07/22/17 09:00 08/21/17 08:59 08/04/17 08:11 Finasteride (Proscar) 5 mg DAILY ORAL 07/22/17 09:00 08/21/17 08:59 08/04/17 08:10 Heparin Sodium (Porcine) (Heparin 5000 units/ml) 5,000 units EVERY 12 HOURS SUBQ 07/21/17 22:30 08/20/17 22:29 08/04/17 08:11 Lansoprazole (Prevacid) 30 mg DAILY GT 07/22/17 09:00 08/21/17 08:59 08/04/17 08:10 Magnesium Hydroxide (Mom) 30 ml DAILYPRN PRN GT CONSTIPATION 1ST LINE AGENT 07/21/17 21:30 08/20/17 21:29 Metoprolol Tartrate (Lopressor) 50 mg EVERY 12 HOURS GT 07/22/17 09:00 08/21/17 08:59 08/04/17 08:10 Morphine Sulfate (Morphine Sulfate) 2 mg Q4H PRN IVP Moderate Pain (Pain Scale 4-6) 08/04/17 10:00 08/09/17 13:14 Morphine Sulfate (Morphine Sulfate) 4 mg Q4H PRN IVP Severe Pain (Pain Scale 7-10) 08/04/17 09:45 08/11/17 09:44 Multivitamins (Multivitamins W/ Minerals 15ml Liquid) 15 ml DAILY GT 07/22/17 09:00 08/21/17 08:59 08/04/17 08:10 Non-Formulary Medication (Non-Formulary Med) 1 ea DAILY ORAL 07/22/17 09:00 08/21/17 08:59 UNV Piperacillin Sod/ Tazobactam Sod 3.375 gm/Dextrose 55 ml @ 13.75 mls/ hr Q8HR IVPB 07/31/17 14:00 08/11/17 13:59 08/04/17 05:14 Sodium Hypochlorite (Dakin's Half Strength) 1 applic BEDTIME TOPIC 07/22/17 21:00 08/22/17 08:59 08/03/17 21:19 ABDOULAYE ALFONSO Aug 04, 2017 10:20
[2017-08-04 12:00] VITALS: BP 130/69
[2017-08-04 16:00] VITALS: BP 113/55
[2017-08-04 20:00] VITALS: BP 121/56
[2017-08-04] MEDS: Dakin's 0.25% (Half Strength) 16oz TOPIC SCH (21:00)
[2017-08-04] MEDS ORDERED: NS 500ML ONE (22:29)
--- NOTE | 2017-08-05 00:15 | Progress Note ---
DATE: 08/04/2017 CARDIOLOGY PROGRESS NOTE SUBJECTIVE: The patient's family members have agreed to terminal extubation and comfort care. The patient has a permanent pacemaker. OBJECTIVE: VITAL SIGNS: The patient's blood pressure is stable 129/60, heart rate 76, and respiratory rate 21. LUNGS: Bilateral breath sounds. Thin trach secretions. HEART: Regular rhythm and rate. Normal S1 and S2. ABDOMEN: Soft. No edema. ASSESSMENT: I agree with comfort care. Terminal extubation. Pacemaker spikes to be expected on cardiac monitoring and will not effect survival. Stanislav Jain M.D. DR: BELKIS JOB#: [id number] CC:
--- NOTE | 2017-08-06 00:45 | Progress Note ---
DATE: 07/31/2017 CARDIOLOGY PROGRESS NOTE SUBJECTIVE: The patient remains on ventilator support. Moderate secretions noted. OBJECTIVE: VITAL SIGNS: Blood pressure 95/53, pulse 82, respiratory rate 18. LUNGS: Bilateral breath sounds with rhonchi. HEART: Regular rhythm and rate. Normal S1, S2. There are paced beats noted at times on monitor. ABDOMEN: Soft. G-tube intact. EXTREMITIES: With ischemic changes and ulcerations of the lower extremities bilaterally. IMPRESSION: 1. Ventilator-dependent respiratory failure. 2. Chronic encephalopathy. 3. Peripheral artery disease with lower extremity ischemia and gangrene. 4. Chronic diastolic congestive heart failure. 5. Permanent pacemaker. 6. Paroxysmal atrial fibrillation. PLAN: 1. Skin care. 2. Ventilator support. 3. Antimicrobials. 4. Await decision regarding amputation versus hospice care. 5. Monitor volume status and cardiorenal parameters. Stanislav Jain M.D. DR: Yoni JOB#: [id number] CC:
--- NOTE | 2017-08-06 01:00 | Progress Note ---
DATE: 08/01/2017 CARDIOLOGY PROGRESS NOTE SUBJECTIVE: Status unchanged. The patient on ventilator support. Family members have refused amputation of nonviable lower extremities due to ischemia. OBJECTIVE: VITAL SIGNS: Blood pressure 112/59, pulse 79, and respirations 20. Monitor, sinus rhythm, demand pacing. LUNGS: With coarse breath sounds. Thin trach secretions. HEART: Regular rhythm and rate. Occasional ectopic beats. ABDOMEN: Soft. EXTREMITIES: With ischemic ulcerations. IMPRESSION: 1. Sepsis with shock. 2. Ischemic lower extremities with pregangrenous changes. 3. Permanent pacemaker. 4. Paroxysmal atrial fibrillation. 5. Ventilator-dependent respiratory failure. 6. Bacteremia. 7. Critical and grave. PLAN: Continue same level of support. Await decisions regarding hospice care versus amputation. The patient is at high risk. Pacemaker has recently been interrogated. No need to turn device off as it will not prolong life in the event of hospice care disposition. Stanislav Jain M.D. DR: Pauline JOB#: [id number] CC:
--- NOTE | 2017-08-06 01:30 | Progress Note ---
DATE: 08/02/2017 CARDIOLOGY PROGRESS NOTE Late entry, 08/02/2017 SUBJECTIVE: Family members have agreed to comfort care. They are considering terminal extubation. No plans for amputation. The patient remains on ventilator support. Monitored rhythm sinus with ventricular pacing. OBJECTIVE: VITAL SIGNS: T-max 100.9 degrees, blood pressure 122/57, pulse 78, and respirations 24. LUNGS: Coarse breath sounds. HEART: Regular rhythm and rate. ABDOMEN: Soft. G-tube intact. EXTREMITIES: Dependent edema. Ischemic ulcerations. IMPRESSION AND PLAN: Terminal condition. Cardiovascular status notable for acute on chronic diastolic congestive heart failure, paroxysmal atrial fibrillation, and permanent pacemaker. care plan is pursued such as extubation. Pacemaker did not need to be inactivated as it will not prolong the patient's life, however, monitor will show non-capturing pacing spikes. Stanislav Jain M.D. DR: Pauline JOB#: [id number] CC:
--- NOTE | 2017-08-06 02:00 | Progress Note ---
DATE: 08/03/2017 CARDIOLOGY PROGRESS NOTE Late entry for 08/03/2017 SUBJECTIVE: The patient's condition is terminal. Family members are considering terminal extubation. He has had bacteremia and sepsis due to ischemic gangrenous lower extremities. He is on antibiotics. Amputations have been refused in favor of comfort care. The patient's pacemaker is functioning well. It will not be inactivated in the event of terminal extubation as it will not prolong his life. OBJECTIVE: VITAL SIGNS: Reviewed. NECK: Unchanged. The patient appears to be without pain. ASSESSMENT AND PLAN: We will await family decision regarding terminal extubation. Stanislav Jain M.D. DR: SANDEEP JOB#: [id number] CC:
--- NOTE | 2017-08-07 16:16 | Discharge Summary ---
Discharge Summary Hospital Course Date of Admission Jul 21, 2017 at 15:50 Date of Discharge Aug 04, 2017 at 23:20 Admitting Diagnosis sepsis HPI Daniel Kruger is a 82 year old male who was admitted on Jul 21, 2017 at 15: 50 for Sepsis Hospital Course [id number] Discharge Discharge Disposition Patient Discharge Diagnoses: Jeanie Gonzalez NP Aug 07, 2017 16:16
--- NOTE | 2017-08-08 02:00 | Discharge Summary 2 SIG ---
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 He was transferred to [facility] as the family decided to hold on hospice and family wanted aggressive measures. He was transferred to [facility] for evaluation of anemia. He has a history of chronic respiratory failure and is vent dependent and has a G tube, history of CVA, paroxysmal atrial fibrillation with pacemaker, hypertension, diabetes, multiple decubiti and contractures with chronic encephalopathy. On evaluation at ED, hemoglobin was 7.7 and hematocrit was 24. WBC was 12 and he was febrile. He was admitted to [facility] for sepsis secondary to multiple gangrenous wounds of lower extremity. He was given two units of packed RBC blood transfusion and was started on intravenous vancomycin and Zosyn pending culture results. Surgical evaluation was done. On evaluation, feet was with necrotic and gangrenous wounds along the plantar aspect of both feet extending to the lateral aspect of feet, bone is visible and loose with malodor present. Right heel with dry adherent eschar. Left lateral lower leg with large wound and exposed tendon. There is a significant flexion contracture of both knees with the calves pressed firmly against the posterior thigh. Sacrum with unstageable pressure ulcer with eschar adherent. Left lateral buttock with unstageable pressure ulcer with eschar adherent. He came in with multiple decubiti ulcers of varying stages. He was recommended need for bilateral above-knee amputation. Several attempts were done to reach the , daughter was unable to make decision. The patient had overall poor prognosis. He was given wound care and antibiotics were adjusted. Urine culture showed growth of Acinetobacter. Blood culture with coagulase-negative Staph likely contaminant. Sputum culture with Serratia and Achromobacter. Wound culture with Morganella and Providencia. declined BKA, but wants Full Code. He was continued on beta-blockers, antiplatelets, and ventilator support. The patient had poor prognosis with no meaningful recovery. Family opted for comfort care. [employer] services was called in to aid with family. Eventually, family decided terminal extubation and the patient eventually . FINAL DIAGNOSES: 1. Sepsis. 2. Acetobacter urinary tract infection. 3. Serratia/Achromobacter pneumonia. 4. Bacteremia. 5. Chronic respiratory failure on trach and vent. 6. Acute anemia requiring blood transfusion. 7. Chronic encephalopathy. 8. Diabetes mellitus. 9. Ischemic lower extremities with pregangrenous changes. 10. Permanent pacemaker. 11. [id number] diastolic congestive heart failure. 12. Paroxysmal atrial fibrillation. 13. Peripheral artery disease with lower extremity ischemia and gangrene. 14. Multiple decubiti present on admission. Refer to wound care notes. 15. Comfort care/Palliative care. Rajeev Carlos M.D. I have been assigned to dictate discharge summary on this account and I was not involved in the patient's management. Jeanie Gonzalez N.P. DR: EDDIE JOB#: [id number] CC: DANIELA
== END 2017-08-04 23:20 | disposition expired | DRG 870 ==
LOC: EDBD 15:15 → EDBEDREQ 15:36 → EMR 15:38 → 2W 15:50 → EDBEDREQ 16:58
PROC: 5A1955Z Respiratory Ventilation, Greater than 96 Consecutive Hours (ICD-10-PCS; principal; 2017-07-21)
DX: A41.9 Sepsis, unspecified organism (principal); G93.49 Other encephalopathy; I50.33 Acute on chronic diastolic (congestive) heart failure; J44.0 Chronic obstructive pulmonary disease with (acute) lower respiratory infection; Z99.11 Dependence on respirator [ventilator] status; J96.10 Chronic respiratory failure, unspecified whether with hypoxia or hypercapnia; J15.6 Pneumonia due to other Gram-negative bacteria; L89.153 Pressure ulcer of sacral region, stage 3; L89.313 Pressure ulcer of right buttock, stage 3; N39.0 Urinary tract infection, site not specified; K92.2 Gastrointestinal hemorrhage, unspecified; N17.9 Acute kidney failure, unspecified; I13.0 Hypertensive heart and chronic kidney disease with heart failure and stage 1 through stage 4 chronic kidney disease, or unspecified chronic kidney disease; I70.263 Atherosclerosis of native arteries of extremities with gangrene, bilateral legs; M86.9 Osteomyelitis, unspecified; Z93.0 Tracheostomy status; D64.9 Anemia, unspecified; Z93.1 Gastrostomy status; I67.9 Cerebrovascular disease, unspecified; Z95.0 Presence of cardiac pacemaker; I48.0 Paroxysmal atrial fibrillation; Z79.01 Long term (current) use of anticoagulants; N18.9 Chronic kidney disease, unspecified; E11.22 Type 2 diabetes mellitus with diabetic chronic kidney disease; L89.102 Pressure ulcer of unspecified part of back, stage 2; L89.600 Pressure ulcer of unspecified heel, unstageable; Z66 Do not resuscitate; R13.10 Dysphagia, unspecified; F03.90 Unspecified dementia, unspecified severity, without behavioral disturbance, psychotic disturbance, mood disturbance, and anxiety
CPT/HCPCS: 36415; 36600; 71010; 80048; 80053; 80202; 81003; 82803; 82962; 83605; 83880; 84484; 85007; 85025; 86850; 86900; 86901; 86920; 87040; 87070; 87081; 87086; 87181; 87205; 87324; 93005; 94002; 94003; 94664